=== PATIENT | female | born 1950 | race Caucasian/White ===

== ENCOUNTER 2024-01-14 18:40 | Emergency (ER) | payer MEDICARE, SELFPAY ==
[2024-01-14 18:42] VITALS: BP 167/88
[2024-01-14 19:11] VITALS: BMI 38.3
--- NOTE | 2024-01-14 19:39 | ED.GENMED ---
History of Present Illness
General
Chief Complaint: Back Pain
Source: patient
Exam Limitations: none
Time Seen by Provider: 01/14/24 19:29
Nursing documentation reviewed up to this point in time: agreed with
Travel History
Have you had any contact with someone who has COVID-19?: No
Do you have any symptoms of coronavirus? Fever > 100 degrees, chills, cough, shortness of breath, sore throat, loss of taste or smell, muscle aches, or headache?: No
History of Present Illness
History of Present Illness:
73-year-old female presents emergency department complaining of bilateral low back pain since last night, getting worse. She took a oxycodone/acetaminophen, which did help a little bit. She is on prednisone chronically. She denies any chest pain
or shortness of breath. She is also on 2 L oxygen chronically for COPD.
Past History
Past History
ED Past Medical History: CHF, COPD and Other (Spinal stenosis, morbid obesity, Bilateral kidney stones, Ulcers)
ED Past Surgical History: Cholecystectomy, Orthopedic (Left shoulder reconstruction. ) and Other (Fasciotomy for fasciitis with wound VAC)
Social History
Tobacco: Smoker
Alcohol: None
Drug: None
Personal:
Living: alone
Employment: Retired
Family History
Family History: Other (Noncontributory)
Review of Systems
Review of Systems
Allergies reviewed?: Yes
All Other Systems: Not applicable
Constitutional: Reports no symptoms
EENT: Reports no symptoms
Respiratory: Reports no symptoms
Cardiac: Reports no symptoms
ABD/GI: Reports no symptoms
: Reports no symptoms
Musculoskeletal: Reports back pain
Skin: Reports no symptoms
Neurological: Reports no symptoms
Endocrine: Reports no symptoms
Hematologic/Lymphatic: Reports no symptoms
Psychiatric: Reports no symptoms
Phy Exam
Physical Exam
Physical Exam:
Physical Exam
General: no apparent distress, not acutely ill
Neck: supple. no meningeal signs. normal posterior pharynx
Heart: s1/s2 regular rate and rhythm, no murmur. equal radial
pulses.
HEENT: Pupils equal round reactive to light, EOMI
Lungs: no acute respiratory distress. clear bilaterally
Abdomen: normal bowel sounds. not tender. no CVAT
back: low back ttp at L2
Neuro: alert and oriented. no focal neurological deficits cranial nerves II through XII intact
Skin: no rash
Psychiatric: well kept. interactive and cooperative
Extremities: no edema. no calf tenderness. negative homans. good distal pulses
Course
Orders/Labs/Results
Orders:
Orders
01/14/24 19:36
IV Insert/Care/Rem.- Treatment PRN
HYDROmorphone [Dilaudid] 1 mg IV NOW STA
Ondansetron Injectable [Zofran] 4 mg IV NOW STA
Pulse Ox/cont/shift [RESP] Stat
Quantity: 1
01/14/24 19:37
CT Abd/pel Without Iv Or Oral Urgent
Comment:
Reason For Exam: right flank/back pain worsening since yesterday
01/14/24 19:59
Complete Blood Count/With Diff Urgent
Comprehensive Metabolic Panel Urgent
Lipase Urgent
01/14/24 20:02
Ipratropium/Albuterol Sulfate [Duoneb] 3 ml INH R NOW ONE
01/14/24 23:18
Tramadol HCl [Ultram] 50 mg PO NOW STA
Abnormal Lab Results
01/14/24
19:59
WBC 15.2 H 10^3/uL
(4.8-10.8)
MCH 31.6 H pg
(27.0-31.0)
Abs Immat Gran (auto) 0.4 H 10^3/uL
(0-0.05)
Absolute Neuts (auto) 10.8 H 10^3/uL
(1.4-6.5)
Absolute Monos (auto) 1.3 H 10^3/uL
(0.1-0.6)
Immature Gran % 2.6 H %
(0-0.5)
Lymphocytes % 14.8 L %
(20.5-51.1)
Sodium 134 L mmol/L
(135-145)
BUN 21 H mg/dl
(7-17)
Creatinine 1.5 H mg/dL
(0.6-1.0)
Glucose 123 H mg/dl
(70-99)
01/14/24 19:59
01/14/24 19:59
Vital Signs
Initial and Last Documented VS:
Initial Vital Signs
Temp Pulse Resp BP Pulse Ox
97.8 F 103 18 167/88 90
01/14/24 18:42 01/14/24 18:42 01/14/24 18:42 01/14/24 18:42 01/14/24 18:42
Last Documented Vital Signs
Temp Pulse Resp BP Pulse Ox
97.8 F 90 18 119/54 90
01/14/24 18:42 01/14/24 22:00 01/14/24 18:42 01/14/24 23:26 01/14/24 23:26
MDM/Problems Addressed
Differential Diagnosis Includes:
UTI, kidney stone
MDM/Problems Addressed:
73-year-old female with low back pain, chronic L2 compression fracture.
Chronic conditions affecting care: COPD and Kidney disease
Acute Exacerbation and/or Progression of Chronic Illness: COPD and Kidney disease
*Radiology
Radiology exam reviewed: radiology read reviewed (CT abdomen pelvis no acute findings, chronic L2 compression fracture)
*Pulse Oximetry
Patient hypoxic: no
*EKG
Interpreted by ED Provider?: NA
*Hob Machine Operator Interpretation
Rate: Hob Machine Operator- N/A
*Critical Care Note
Total Time (30-74mins, 75-104mins- exclusive of procedures): Not Applicable
Patient Management
Social determinants of health affecting care: Living situation and Strong social support
Escalation/DeEscalation of care consider admission/obs:
Admit not indicated
ED Attending Note
-
Portions of this chart may have been created with voice recognition software.� Occasional wrong word or��sound alike� substitutions may have occurred due to the inherent limitations of voice recognition software.
Discharge Plan
Departure
Patient Disposition: Home (Routine Discharge)
Date of Disposition: 01/14/24
Time of Disposition: 23:11
Patient with high blood pressure during this ER visit?: No
Condition: Good
Discharge Problem:
Low back pain, COPD (chronic obstructive pulmonary disease), Chronic kidney disease, stage 3
Instructions: Chronic obstructive pulmonary disease (COPD), Low Back Pain (DC), BLOOD PRESSURE
Prescriptions:
New
tramadol 50 mg tablet
50 mg PO TID PRN (Reason: Pain) Qty: 20 0RF
No Action
Claritin-D 12 Hour 5-120 mg Tablet Extended Release 12 Hr
1 tab PO DAILY
albuterol sulfate 90 mcg/actuation HFA aerosol inhaler
1 puff INHALATION R Q4HPRN PRN (Reason: sob/wheezing)
alprazolam 0.5 mg tablet
0.5 mg PO DAILY PRN (Reason: panic attack)
Patient Comments:
10/28/2023, could not find this medication on PDMP.
sertraline 25 mg tablet
25 mg PO DAILY
bupropion HCl 300 mg tablet extended release 24 hr
300 mg PO DAILY
furosemide 40 mg Tablet
40 mg PO DAILY Qty: 30 0RF
acetaminophen [Tylenol] 325 mg Tablet
650 mg PO Q6H PRN (Reason: mild pain)
nicotine 14 mg/24 hr Patch 24 Hour
1 patch TRANSDERMAL DAILY
Patient Comments:
10/28/2023, patient currently wearing a patch on her right shoulder.
ipratropium-albuterol 0.5 mg-3 mg(2.5 mg base)/3 mL Solution For Nebulization
3 ml INHALATION R BID
Patient Comments:
10/28/2023, patient states that they alternate this medication with their albuterol sulfate 0.083% solution for nebulization BID.
albuterol sulfate 2.5 mg /3 mL (0.083 %) Solution For Nebulization
2.5 mg INHALATION R BID
Patient Comments:
10/28/2023, patient states that they alternate this medication with their Ipratropium Albuterol 0.5mg/3mg BID.
Anoro Ellipta 62.5-25 mcg/actuation Blister With Device
1 inh INHALATION R BID
guaifenesin [Mucus Relief ER] 600 MG tablet extended release 12hr
600 mg PO BID
lidocaine 4 % Adhesive Patch,Medicated
1 patch topical DAILY Qty: 30 0RF
prednisone 10 mg Tablet
See Rx Instructions .ROUTE .COMPLEX Qty: 50 0RF
Rx Instructions:
Take By Mouth:
40 mg daily x5 days, 30 mg daily x5 days,
20 mg daily x5 days, 10 mg daily x5 days,
10 mg daily x3 days
Referrals:
Ant Diaz DO [Family Provider] - Call in 1-3 days for appt
Interventions
Interventions:
*Risk Screen - Suicide Last Done: 01/14/24 19:11
*General Assessment Last Done: 01/14/24 19:11
*Neglect/Abuse Screening Last Done: 01/14/24 19:11
ED- Fall Risk Assessment Last Done: 01/14/24 23:30
*ED COVID-19 Vaccine History Last Done: 01/14/24 19:11
*Nursing Disposition Last Done: 01/14/24 23:30
ED-Musculoskeletal Assessment Last Done: 01/14/24 19:15
Discharge Date and Time
Discharge Date/Time: 01/14/24 23:47
[2024-01-14] MEDS: DILAUDID 1 MG IV (19:54)
[2024-01-14] MEDS: ZOFRAN 4 MG IV (19:54)
[2024-01-14] MEDS: DUONEB 3 ML INH (20:05)
[2024-01-14 20:07] LABS: % Basophils 0.6 % (0-2); % Eosinophils 2.8 % (0-6); % Immature Granulocytes 2.6 % (0-0.5); % Lymphocytes 14.8 % (20.5-51.1); % Monocytes 8.2 % (1.7-9.3); Absolute Basophils 0.1 10^3/uL (0-0.2); Absolute Eosinophils 0.4 10^3/uL (0-0.7); Absolute Immature Granulocytes 0.4 10^3/uL (0-0.05); Absolute Lymphocytes 2.2 10^3/uL (1.2-3.4); Absolute Monocytes 1.3 10^3/uL (0.1-0.6); Absolute Neutrophils 10.8 10^3/uL (1.4-6.5); Hematocrit 40.7 % (37.0-47.0); Hemoglobin 13.6 g/dL (12.0-16.0); Mean Corp Hgb Conc. 33.4 g/dL (33.0-37.0); Mean Corpuscular Hgb 31.6 pg (27.0-31.0); Mean Corpuscular Volume 94.4 fL (81.0-99.0); Mean Platelet Volume 9.2 fL (7.4-10.4); Nucleated Red Blood Cells % 0 %; Platelet Count 337 10^3/uL (130-400); Red Blood Cell Count 4.31 10^6/uL (4.20-5.40); Red Cell Dist. Width 12.5 % (11.5-14.5); White Blood Cell Count 15.2 10^3/uL (4.8-10.8)
[2024-01-14 20:21] LABS: ALT (SGPT) 18 U/L (0-35); AST (SGOT) 23 U/L (14-36); Alkaline Phosphatase 105 U/L (38-126); Blood Urea Nitrogen 21 mg/dl (7-17); Calcium 9.2 mg/dl (8.4-10.2); Carbon Dioxide 29 mmol/L (22-30); Chloride 100 mmol/L (98-107); Estimated Creatinine Clearance 44 ml/min; Glucose 123 mg/dl (70-99); Lipase 83 U/L (23-300); Potassium 4.1 mmol/L (3.5-5.1); Sodium 134 mmol/L (135-145); Total Bilirubin 0.6 mg/dl (0.2-1.3); Total Protein 6.9 g/dl (6.3-8.2); eGFR 36.57
[2024-01-14 22:00] VITALS: BP 115/52
[2024-01-14] MEDS: ULTRAM 50 MG PO (23:22)
[2024-01-14 23:26] VITALS: BP 119/54
== END 2024-01-14 23:47 | disposition home or self-care (01) ==
LOC: EMR 18:40
PROVIDERS: EMERGENCY PHYSICIAN Emergency Medicine; FAMILY PHYSICIAN Family Medicine
DX: M54.50 Low back pain, unspecified (principal); J44.9 Chronic obstructive pulmonary disease, unspecified; N18.30 Chronic kidney disease, stage 3 unspecified; I50.9 Heart failure, unspecified; M48.00 Spinal stenosis, site unspecified; E66.01 Morbid (severe) obesity due to excess calories; F17.200 Nicotine dependence, unspecified, uncomplicated; Z79.52 Long term (current) use of systemic steroids; Z87.442 Personal history of urinary calculi; Z90.49 Acquired absence of other specified parts of digestive tract
CPT/HCPCS: 99284; 94640; 96374; 96375; 74176; 80053; 83690; 85025

== ENCOUNTER 2024-01-18 22:04 | Inpatient (IN) | payer MEDICARE, SELFPAY ==
[2024-01-18 15:13] VITALS: BP 167/90
[2024-01-18 15:41] LABS: % Basophils 0.1 % (0-2); % Eosinophils 0.1 % (0-6); % Immature Granulocytes 0.9 % (0-0.5); % Monocytes 3.9 % (1.7-9.3); Absolute Immature Granulocytes 0.1 10^3/uL (0-0.05); Absolute Lymphocytes 1.1 10^3/uL (1.2-3.4); Absolute Monocytes 0.6 10^3/uL (0.1-0.6); Absolute Neutrophils 13.2 10^3/uL (1.4-6.5); Hematocrit 39.6 % (37.0-47.0); Hemoglobin 13.4 g/dL (12.0-16.0); Mean Corp Hgb Conc. 33.8 g/dL (33.0-37.0); Mean Corpuscular Hgb 31.7 pg (27.0-31.0); Mean Corpuscular Volume 93.6 fL (81.0-99.0); Mean Platelet Volume 9.6 fL (7.4-10.4); Nucleated Red Blood Cells % 0 %; Platelet Count 346 10^3/uL (130-400); Red Blood Cell Count 4.23 10^6/uL (4.20-5.40); Red Cell Dist. Width 12.4 % (11.5-14.5)
[2024-01-18 15:43] LABS: Urine Albumin Negative (Neg - Trace); Urine Bilirubin 1+ (Negative); Urine Character Clear (Clear); Urine Color Yellow; Urine Glucose Negative (Negative); Urine Ketone Negative (Negative); Urine Leukocyte Trace (Negative); Urine Nitrite Negative (Negative); Urine Occult Blood Negative (Negative); Urine Specific Gravity 1.025 (<1.030); Urine Urobilinogen Negative (Neg - 1+)
[2024-01-18 15:53] LABS: ALT (SGPT) 20 U/L (0-35); AST (SGOT) 26 U/L (14-36); Albumin 3.9 g/dl (3.5-5.0); Alkaline Phosphatase 97 U/L (38-126); Blood Urea Nitrogen 25 mg/dl (7-17); Calcium 9.4 mg/dl (8.4-10.2); Carbon Dioxide 27 mmol/L (22-30); Chloride 102 mmol/L (98-107); Glucose 134 mg/dl (70-99); Lipase 48 U/L (23-300); Potassium 4.8 mmol/L (3.5-5.1); Sodium 135 mmol/L (135-145); Total Bilirubin 0.6 mg/dl (0.2-1.3); Total Protein 6.8 g/dl (6.3-8.2); Urine Squamous Cell >30 /LPF (Few); eGFR 36.57
[2024-01-18 15:54] LABS: Urine Calcium Oxalate Crystals Present
[2024-01-18 15:55] LABS: Urine Bacteria Few (Negative); Urine Red Blood Cell 0-2 /HPF (0-2)
--- NOTE | 2024-01-18 19:29 | ED.GENMED ---
History of Present Illness
General
Chief Complaint: Breathing Problem
Source: patient, records and family (Daughter)
Exam Limitations: none
Time Seen by Provider: 01/18/24 18:48
Nursing documentation reviewed up to this point in time: agreed with
Travel History
Have you had any contact with someone who has COVID-19?: No
Do you have any symptoms of coronavirus? Fever > 100 degrees, chills, cough, shortness of breath, sore throat, loss of taste or smell, muscle aches, or headache?: No
History of Present Illness
History of Present Illness:
73-year-old female with a past medical history of COPD with chronic respiratory failure on 2 L of oxygen, CHF, JUAN ANTONIO, obesity, anxiety/depression who presents to the emergency department accompanied by her daughter for evaluation of breathing
difficulties also complaining of persistent low back pain. Patient reports that she strained her low back last week and has had pain in the right side of the back radiating across the low back since then. She was seen in the emergency room 4 days
ago and had CT scan which showed no acute pathology was discharged with tramadol to take for pain as needed. She says the pain is generally improving but still quite severe. She is back in the emergency room today with persistent pain but her main
presenting complaint for this visit is shortness of breath. It sounds like over the past week she has had increasing shortness of breath particular with exertion but now also at rest. She says that she thinks she is retaining some fluid
particularly around her lower abdomen. She says that she has had significant coughing fits. She says that normally she wears 2 L of oxygen but has recently been increasing to 3 L of oxygen. She was concerned that her breathing seems to be getting
worse and came back to the emergency room for assessment. Patient did have visiting nurse, few days ago and draw repeat blood work after ED visit and apparently was found to have a leukocytosis to 15�presume her suggested that potentially she could
have an infection of some sort; patient does note that she has been on chronic prednisone, chart review shows similar elevations in the past.
Past History
Past History
ED Past Medical History: CHF, COPD and Other (Spinal stenosis, morbid obesity, Bilateral kidney stones, Ulcers)
ED Past Surgical History: Cholecystectomy, Orthopedic (Left shoulder reconstruction. ) and Other (Fasciotomy for fasciitis with wound VAC)
Social History
Tobacco: Smoker
Alcohol: None
Drug: None
Personal:
Living: alone
Employment: Retired
Family History
Family History: Other (Noncontributory)
Review of Systems
Review of Systems
All Other Systems: ROS reviewed and negative except as documented in HPI and ROS
Constitutional: Denies fever or chills
EENT: Denies sore throat
Respiratory: Reports cough and trouble breathing
Cardiac: Denies chest pain or palpitations
ABD/GI: Denies abdominal pain, nausea, vomiting or diarrhea
: Reports flank pain; Denies dysuria or frequency
Musculoskeletal: Reports back pain; Denies neck pain
Neurological: Denies headache, weakness or numbness
Phy Exam
Physical Exam
Physical Exam:
General: Awake, alert, oriented x3; no acute distress
Head: Normocephalic, atraumatic
Eyes: Conjunctiva normal, sclera anicteric
Throat: Airway intact, handling secretions
Neck: Trachea midline, supple without meningismus, no JVD noted
Lungs: Frequent coughing, pulse ox 92 to 94% on 3 L nasal cannula; she has normal work of breathing, mild tachypnea; she has marked bilateral wheezing with prolonged expiration
Heart: Regular rate and rhythm, no murmurs, gallops, or rubs
Abd: Soft, non distended, nontender to deep palpation
Back: No CVA tenderness, consistently reproducible tenderness in the right lumbar paraspinal region
Neuro: Cranial nerves grossly intact, speech fluid
Skin: no rash
Extremities: No edema in extremities, equal pulses in all extremities
Scores
Heart Failure Risk
Heart Failure Risk Score: Not Applicable
Heart Score for Chest Pain Patients
STEMI patient?: Not applicable
Withdrawal Assessment of Alcohol
Withdrawal Assessment Completed?: Not applicable
Course
Orders/Labs/Results
Orders:
Orders
01/18/24 15:26
CBC/With Diff [Complete Blood Count/With Diff] Urgent
CMP [Comprehensive Metabolic Panel] Urgent
Lipase Urgent
Urinalysis Reflex To Culture Urgent
Date Specimen was Collected: 01/18/24
Time Specimen was Collected: 15:18
Urine Microscopic Reflex Cult Urgent
01/18/24 19:28
NT-proBNP Urgent
HYDROmorphone [Dilaudid] 0.5 mg IV NOW STA
Ipratropium/Albuterol Sulfate [Duoneb] 3 ml INH R NOW STA
CR Chest - 2 Views Urgent
Comment:
Reason For Exam: sob, cough
01/18/24 19:39
Electrocardiogram (*1) Urgent
Reason for Study: Shortness of Breath
EKG- Treatment ONCE
01/18/24 20:27
Case Management Consult ONCE
Case Management Consult: Discharge Planning
Pt Eval And Treat Urgent
Activity Level: Ambulate
01/18/24 20:35
Ipratropium/Albuterol Sulfate [Duoneb] 3 ml INH R NOW STA
01/18/24 20:37
Furosemide [Lasix] 40 mg IV NOW STA
Abnormal Lab Results
01/18/24
15:26
WBC 15.0 H 10^3/uL
(4.8-10.8)
MCH 31.7 H pg
(27.0-31.0)
Abs Immat Gran (auto) 0.1 H 10^3/uL
(0-0.05)
Absolute Neuts (auto) 13.2 H 10^3/uL
(1.4-6.5)
Absolute Lymphs (auto) 1.1 L 10^3/uL
(1.2-3.4)
Immature Gran % 0.9 H %
(0-0.5)
Neutrophils % 88.0 H %
(42.2-75.2)
Lymphocytes % 7.0 L %
(20.5-51.1)
BUN 25 H mg/dl
(7-17)
Creatinine 1.5 H mg/dL
(0.6-1.0)
Glucose 134 H mg/dl
(70-99)
Urine Bilirubin 1+ A
(Negative)
Leukocyte Esterase Rfl Trace A
(Negative)
Urine Bacteria (Reflex) Few A
(Negative)
01/18/24 15:26
01/18/24 15:26
Vital Signs
Initial and Last Documented VS:
Initial Vital Signs
Temp Pulse Resp BP Pulse Ox
36.7 C 97 24 167/90 94
01/18/24 15:13 01/18/24 15:13 01/18/24 15:13 01/18/24 15:13 01/18/24 15:13
Last Documented Vital Signs
Temp Pulse Resp BP Pulse Ox
36.7 C 97 24 167/90 94
01/18/24 15:13 01/18/24 15:13 01/18/24 15:13 01/18/24 15:13 01/18/24 15:13
MDM/Problems Addressed
Differential Diagnosis Includes:
Shortness of breath: COPD exacerbation, CHF exacerbation, pneumonia
Back pain: Muscular back pain, kidney stone, UTI/pyelonephritis
MDM/Problems Addressed:
73-year-old female presents for evaluation of shortness of breath also having persistent low back pain. Hypertensive, tachypneic with pulse ox 90 to 94% on 3 L of oxygen (typically on 2 L at home). Physical exam as above.
Regarding low back pain: Seems consistently reproducible to the touch and is in my judgment convincingly muscular pain. She already had CT scan a few days ago which showed no kidney stone or concerning intra-abdominal pathology. Her urinalysis
today sent in triage shows no signs of infection. Will treat symptomatically for now�it seems to be limiting her movement markedly she likely will benefit from PT evaluation and rehab as she has poor functional status at baseline, now basically
cannot move due to this back injury.
Regarding shortness of breath: She has baseline COPD but has marked bilateral wheezing and prolonged expiration�most consistent with COPD exacerbation although also would consider CHF exacerbation. Pneumonia considered less likely although she did
have leukocytosis on outpatient labs a few days ago suspect this is more likely due to prednisone use. Nevertheless we will place an IV check labs including a CBC and CMP will check a BNP. Will check an EKG and a chest x-ray. Will treat with a
DuoNeb. She already took her prednisone today 50 mg. Will monitor closely reassess after the above.
Labs reviewed: CBC shows leukocytosis to 15 essentially unchanged. CMP shows creatinine of 1.5 which is baseline. Chest x-ray reviewed by me shows some pulmonary vascular congestion, mild pulmonary edema. Will dose with IV Lasix. She still
significant wheezing as well will repeat DuoNeb likely some component of COPD contributing. Will admit for continued management of her respiratory issues and will likely ultimately need rehab for back injury as well. Discussed with hospitalist for
admission.
Chronic conditions affecting care:
COPD, CHF, obesity
Acute Exacerbation and/or Progression of Chronic Illness:
Acute COPD exacerbation managed with DuoNeb
Acute CHF exacerbation managed with Lasix
Acutely hypertensive�no emergent indication for antihypertensive we will continue to monitor
Acute Exacerbation and/or Progression of Chronic Illness: HTN and COPD
*Radiology
Radiology exam reviewed: preliminary read by ED provider and radiology read reviewed
*Pulse Oximetry
Patient hypoxic: yes
*EKG
Interpreted by ED Provider?: Yes
Heart Rate: 79
Rate: normal
Rhythm: sinus and PVC's
[place]: normal axis
Interval: normal interval
QRS Pattern: normal QRS
Ischemia: no ischemia
*Critical Care Note
Total Time (30-74mins, 75-104mins- exclusive of procedures): Not Applicable
Data Reviewed
Review of Other/Old Records Reveals: Labs, Records and Radiology Studies
Source: patient and family (Daughter)
Patient Management
Discussion with other providers: Hospitalist (Discussed with hospitalist)
Escalation/DeEscalation of care consider admission/obs:
Admission indicated
ED Attending Note
-
Portions of this chart may have been created with voice recognition software.� Occasional wrong word or��sound alike� substitutions may have occurred due to the inherent limitations of voice recognition software.
Discharge Plan
Departure
Patient Disposition: Admit
Date of Disposition: 01/18/24
Time of Disposition: 20:39
Admit to doctor: Crescencio
Presentation/result/management discussed w/ accepting MD/DO: Hospitalist
Discharge Problem:
CHF exacerbation, COPD exacerbation, Low back pain
Prescriptions:
No Action
Claritin-D 12 Hour 5-120 mg Tablet Extended Release 12 Hr
1 tab PO DAILY
albuterol sulfate 90 mcg/actuation HFA aerosol inhaler
1 puff INHALATION R Q4HPRN PRN (Reason: sob/wheezing)
alprazolam 0.5 mg tablet
0.5 mg PO DAILY PRN (Reason: panic attack)
Patient Comments:
10/28/2023, could not find this medication on PDMP.
sertraline 25 mg tablet
25 mg PO DAILY
bupropion HCl 300 mg tablet extended release 24 hr
300 mg PO DAILY
furosemide 40 mg Tablet
40 mg PO DAILY Qty: 30 0RF
acetaminophen [Tylenol] 325 mg Tablet
650 mg PO Q6H PRN (Reason: mild pain)
nicotine 14 mg/24 hr Patch 24 Hour
1 patch TRANSDERMAL DAILY
Patient Comments:
10/28/2023, patient currently wearing a patch on her right shoulder.
ipratropium-albuterol 0.5 mg-3 mg(2.5 mg base)/3 mL Solution For Nebulization
3 ml INHALATION R BID
Patient Comments:
10/28/2023, patient states that they alternate this medication with their albuterol sulfate 0.083% solution for nebulization BID.
albuterol sulfate 2.5 mg /3 mL (0.083 %) Solution For Nebulization
2.5 mg INHALATION R BID
Patient Comments:
10/28/2023, patient states that they alternate this medication with their Ipratropium Albuterol 0.5mg/3mg BID.
Anoro Ellipta 62.5-25 mcg/actuation Blister With Device
1 inh INHALATION R BID
guaifenesin [Mucus Relief ER] 600 MG tablet extended release 12hr
600 mg PO BID
lidocaine 4 % Adhesive Patch,Medicated
1 patch topical DAILY Qty: 30 0RF
prednisone 10 mg Tablet
See Rx Instructions .ROUTE .COMPLEX Qty: 50 0RF
Rx Instructions:
Take By Mouth:
40 mg daily x5 days, 30 mg daily x5 days,
20 mg daily x5 days, 10 mg daily x5 days,
10 mg daily x3 days
tramadol 50 mg tablet
50 mg PO TID PRN (Reason: Pain) Qty: 20 0RF
Interventions
Interventions:
*Risk Screen - Suicide Last Done: 01/18/24 15:13
*General Assessment Last Done: 01/18/24 15:13
*Neglect/Abuse Screening Last Done: 01/18/24 15:13
*ED COVID-19 Vaccine History Last Done: 01/18/24 15:18
NP-Dlblam-Ezemqpcszw Assessment Last Done: 01/18/24 18:43
ED- Cardiac Assessment Last Done: 01/18/24 20:10
ED-Female Genitourinary Assessment Last Done: 01/18/24 18:43
ED- Pulmonary Assessment Last Done: 01/18/24 20:10
[2024-01-18] MEDS: DUONEB 3 ML INH ×2 (19:46→21:09)
[2024-01-18] MEDS: DILAUDID 0.5 MG IV (20:06)
[2024-01-18 21:00] LABS: NT-proBNP 582 pg/ml
[2024-01-18] MEDS: LASIX 40 MG IV (21:10)
--- NOTE | 2024-01-18 21:14 | HPS.HSE ---
Family Physician
-
Family Physician: Ant Diaz
Chief Complaint
-
shortness of breath
History of Present Illness
73-year-old female past medical history of chronic hypoxic respiratory failure secondary to COPD on 2 L baseline, obstructive sleep apnea, chronic HFpEF, active smoker, CKD 3A, anxiety/depression, obesity, left-sided sciatica, prior lumbar fracture,
hyponatremia, kidney stones, prior presenting with breathing difficulty and persistent lower back pain.
Patient states she originally pulled a muscle in her right groin in May from coughing. This eventually recovered. Last week she suddenly developed pain on the right lower side of her back radiating to the right butt across the left side as well
as radiating around to the front of the abdomen described as spasm. Pain was very severe and constant although exacerbated by movement. This was also accompanied by increased difficulty ambulating. She thought that the pain was so bad that it may
have been a kidney stone. Denies any urinary symptoms. She was seen in the emergency room [address] and had CT scan of the abdomen pelvis which was negative and discharged with tramadol. Pain is a little bit improved but still severe. She
denies any trauma or injury. She states she has a distant history of lumbar fracture. She did have an episode of urinary incontinence yesterday for the first time.
She feels her abdomen is a bit distended and she has gained 5 pounds despite eating less due to the pain. Has nausea but denies vomiting. Denies any diarrhea or constipation.
Over the past week patient is also developed significant shortness of breath with exertion now at rest. Not much productive cough. Denies any fevers or chills. Denies any chest pain. She increased her oxygen from 2 L to 3 L today.
She only smokes 4 cigarettes a day now. Denies any alcohol use.
Medical History
Past Medical History
Past Medical History: Reports Other (chronic hypoxic respiratory failure secondary to COPD on 2 L baseline, obstructive sleep apnea, chronic HFpEF, active smoker, CKD 3A, anxiety/depression, obesity, left-sided sciatica, prior lumbar fracture,
hyponatremia, kidney stones,)
Past Surgical History: Reports Other (Cholecystectomy, Orthopedic (Left shoulder reconstruction. ) and Other (Fasciotomy for fasciitis with wound VAC))
Social History
Tobacco: Smoker
Alcohol: None
Drug: None
Family History
Family History: Not pertinent
Allergies / Home Medications
Allergies reflects when Allergies were last updated in [facility].
Home Medications with original date entered in [facility]
Allergy/Medication List:
Allergies
Allergy/AdvReac Type Severity Reaction Status Date / Time
ampicillin Allergy Hives Verified 01/18/24 15:18
coconut Allergy Hives Verified 01/18/24 15:18
mustard Allergy Hives Verified 01/18/24 15:18
Home Medications
albuterol sulfate 90 mcg/actuation aerosol inhaler 2 puff inhalation R Q4HPRN PRN sob/wheezing 12/29/22
loratadine 5 mg-pseudoephedrine ER 120 mg tablet,extended release,12hr (Claritin-D 12 Hour) 1 tab PO DAILY Allergies 12/29/22
bupropion HCl 300 mg 24 hr tablet, extended release 300 mg PO DAILY Depression 07/19/23
sertraline 25 mg tablet 100 mg PO DAILY Depression 07/19/23
furosemide 40 mg tablet 40 mg PO DAILY #30 tabs 08/20/23
acetaminophen 325 mg tablet (Tylenol) 650 mg PO Q6H PRN mild pain 10/28/23
albuterol sulfate 2.5 mg/3 mL (0.083 %) solution for nebulization 2.5 mg inhalation R QID Lung/Breathing Issues 10/28/23
guaifenesin 600 mg tablet, extended release 12 hr (Mucus Relief ER) 600 mg PO BID Congestion 10/28/23
ipratropium 0.5 mg-albuterol 3 mg (2.5 mg base)/3 mL nebulization soln 3 ml inhalation R QID Lung/Breathing Issues 10/28/23
budesonide 160 mcg-glycopyr 9 mcg-formot 4.8 mcg/actuation HFA inhaler (Breztri Aerosphere) 2 inh inhalation R BID 01/18/24
prednisone 20 mg tablet 20 mg PO DAILY 01/18/24
Review of Systems
-
History Source: Patient
A 12 point ROS was completed and negative except as noted: Yes
Constitutional: Reports No Symptoms
EENT: Reports No Symptoms
Respiratory: Reports See HPI
Cardiac: Reports See HPI
Abdomen/GI: Reports No Symptoms
: Reports No Symptoms
Musculoskeletal: Reports No Symptoms
Skin: Reports No Symptoms
Neurological: Reports No Symptoms
Endocrine: Reports No Symptoms
Hematologic/Lymphatic: Reports No Symptoms
Psych: Reports No Symptoms
Physical Exam
Vital Signs
Vital Signs
Temp Pulse Resp BP Pulse Ox
98.0 F 97 24 167/90 94
01/18/24 15:13 01/18/24 15:13 01/18/24 15:13 01/18/24 15:13 01/18/24 15:13
Physical Exam
General: Well Developed, Well Nourished and No Apparent Distress
HEENT: NormoCephalic, Moist mucous membranes and Atraumatic
Respiratory: Wheezes
Cardiac: S1/S2 and Regular Rhythm; No Murmur or Rub
GI: Soft, Non Tender, Non Distended and Normal Bowel Sounds; No Organomegaly
Rectal: Deferred by Provider
Musculoskeletal: No Clubbing, No Cyanosis and No Edema
Skin: No Rash
Neuro: Nonfocal/grossly intact
Laboratory Results
-
01/18/24 15:26
01/18/24 15:26
Laboratory Results
Total Bilirubin 0.6 mg/dl (0.2-1.3) 01/18/24 15:26
AST 26 U/L (14-36) 01/18/24 15:26
ALT 20 U/L (0-35) 03/06/24 15:26
Alkaline Phosphatase 97 U/L (38-126) 01/18/24 15:26
Lipase 48 U/L (23-300) 01/18/24 15:26
Data Reviewed
-
Lab Data: Labs Reviewed by me
Old Records: Reviewed
Impression/Plan
-
IMPRESSION:
PLAN:
# Acute COPD exacerbation
# Chronic COPD on 2 L baseline
-DuoNebs every 6 hours
-Dexamethasone 4 mg every 8 hours
-Doxycycline
-Continue long-acting inhalers
-Mucinex
-Pulmonary consulted
# Mild component of acute on chronic HFpEF exacerbation
-Chest x-ray cannot exclude mild acute pulmonary edema
-Check I's and O's, daily weight
-40 IV Lasix given, continue daily
-Cardiology consulted
# Severe right lower back pain likely muscle spasm with radiation to the abdomen
-Tylenol, tramadol, lidocaine patch
-Add Flexeril
-As needed oxycodone for severe
-Recent CT abdomen pelvis negative for kidney stone pathology
-Check MRI lumbar spine to evaluate for herniated disc especially given weakness and episode of incontinence yesterday
-Also check urinalysis
History of left-sided sciatic
Distant history of lumbar fracture
Obstructive sleep apnea
-Not on CPAP due to anxiety
History of kidney stones
Active smoker
-Nicotine patch
CKD 3A
-Renal function at baseline
Anxiety/depression
-Continue Xanax
-Continue sertraline, bupropion
Obesity
Full code
DVT prophylaxis�heparin
Cardiac diet
[2024-01-18] MEDS: VIBRAMYCIN 260 MG IV (22:58)
[2024-01-18] MEDS: ROXICODONE 5 MG PO (22:58)
[2024-01-18] MEDS: DECADRON 4 MG IV (22:58)
[2024-01-18 23:00] VITALS: BP 119/60
[2024-01-18 23:15] LABS: Urine Albumin Negative (Neg - Trace); Urine Bilirubin Negative (Negative); Urine Character Clear (Clear); Urine Color Yellow; Urine Glucose Negative (Negative); Urine Ketone Negative (Negative); Urine Leukocyte 2+ (Negative); Urine Nitrite Negative (Negative); Urine Occult Blood Negative (Negative); Urine Specific Gravity 1.015 (<1.030); Urine Urobilinogen Negative (Neg - 1+)
[2024-01-19] VITALS (8 sets, daily range): BP systolic 108–139; BP diastolic 56–114; BMI 37.6; BMI 37.7
[2024-01-19 00:26] LABS: Urine Squamous Cell >30 /LPF (Few)
[2024-01-19 00:28] LABS: Urine Bacteria Moderate (Negative); Urine Urothelial Cell >30 /LPF (FEW); Urine White Cell 40-50 /HPF (0-5)
[2024-01-19] MEDS: DECADRON 4 MG IV ×3 (05:46→21:09)
[2024-01-19 07:02] LABS: % Basophils 0.2 % (0-2); % Eosinophils 0.2 % (0-6); % Immature Granulocytes 1.2 % (0-0.5); % Lymphocytes 6.1 % (20.5-51.1); % Monocytes 2.7 % (1.7-9.3); % Neutrophils 89.6 % (42.2-75.2); Absolute Immature Granulocytes 0.1 10^3/uL (0-0.05); Absolute Lymphocytes 0.7 10^3/uL (1.2-3.4); Absolute Monocytes 0.3 10^3/uL (0.1-0.6); Absolute Neutrophils 10.9 10^3/uL (1.4-6.5); Hematocrit 36.9 % (37.0-47.0); Hemoglobin 12.3 g/dL (12.0-16.0); Mean Corp Hgb Conc. 33.3 g/dL (33.0-37.0); Mean Corpuscular Hgb 31.4 pg (27.0-31.0); Mean Corpuscular Volume 94.1 fL (81.0-99.0); Mean Platelet Volume 9.8 fL (7.4-10.4); Nucleated Red Blood Cells % 0 %; Platelet Count 321 10^3/uL (130-400); Red Blood Cell Count 3.92 10^6/uL (4.20-5.40); Red Cell Dist. Width 12.4 % (11.5-14.5); White Blood Cell Count 12.1 10^3/uL (4.8-10.8)
[2024-01-19 07:21] LABS: ALT (SGPT) 17 U/L (0-35); AST (SGOT) 20 U/L (14-36); Albumin 3.5 g/dl (3.5-5.0); Alkaline Phosphatase 81 U/L (38-126); Blood Urea Nitrogen 31 mg/dl (7-17); Calcium 9.4 mg/dl (8.4-10.2); Carbon Dioxide 30 mmol/L (22-30); Chloride 97 mmol/L (98-107); Glucose 138 mg/dl (70-99); Potassium 4.3 mmol/L (3.5-5.1); Sodium 135 mmol/L (135-145); Total Bilirubin 0.4 mg/dl (0.2-1.3); Total Protein 6.3 g/dl (6.3-8.2); eGFR 31.47
[2024-01-19] MEDS: DUONEB 3 ML INH (07:30)
[2024-01-19] MEDS: SPIRIVA RESPIMAT 2.5 MCG INH (07:31)
[2024-01-19] MEDS: SYMBICORT 160/4.5 MCG INHALER 2 PUFF INH ×2 (07:31→20:15)
--- NOTE | 2024-01-19 09:17 | CON.CAR ---
Addendum entered and electronically signed by Emily Desai MD 01/19/24 10:26:
I saw and examined the patient.
The STONE OPERATOR's note was reviewed and I agree with the note.
Comment: I saw and examined the patient.
The STONE OPERATOR's note was reviewed and I agree with the note.
Comment: 73-year-old female with oxygen dependent COPD, ongoing tobacco use, heart failure with preserved EF and back pain who presented with increased shortness of breath and back pain over the last several days. She has been gaining weight
despite reported compliance with medications. She does think she may have been taking in too much fluid as she was not accounting for fluid and food only her cup. Additionally, she was recently resumed on steroids. On exam she is morbidly obese
but pleasant, JVP is 14 cm of H2O. She has a regular respiratory effort does cough with inspiration and has some rales bilaterally at the bases. Regular rate and rhythm with a normal S1-S2 no murmurs or gallops were appreciated abdomen was obese
but soft, no lower extremity edema. Overall, I think her shortness of breath is multifactorial but certainly there is an element of decompensated heart failure. Agree with increasing her diuresis. Reviewed the heart failure plan. Will check on
pricing of SGLT2 inhibitors given her heart failure with preserved EF. She denies a history of recurrent UTIs. Treatment of her back pain and COPD as per medicine. Renal function is chronically depressed so we will need intensive monitoring
during of her electrolytes and creatinine during IV diuresis. Will follow
Original Note:
Consultation
Consultation Request
Date/Time Consultation Requested: 01/19/24 0758
Date/Time Consultation Performed: 01/19/24 [id number]
Requesting Provider: Dr. Mckeon
Performing Provider: Elvi ROCHA for Dr. Desai
Reason for Consultation: CHF
Medical History
-
Chief Complaint: back pain and shortness of breath
History of Present Illness:
73 y/o female with HFpEF, tobacco use, COPD on 2LNC, anxiety/depression, renal insufficiency who is here for evaluation of continued lower back pain as well as SOB (since last Tuesday). She also reports 5 lb weight gain and abdominal bloating. She is
being diuresed.
Past Medical History
Past Medical History: CHF, COPD and Psychiatric (anxiety, depression)
Social History
Tobacco: Smoker (2 cigarettes per day (decreased from previous 1/2 PPD))
Family History
Family History: Reviewed & Not Pertinent
Allergies / Home Medications
Allergy/AdvReac Type Severity Reaction Status Date / Time
ampicillin Allergy Hives Verified 01/18/24 15:18
coconut Allergy Hives Verified 01/18/24 15:18
mustard Allergy Hives Verified 01/18/24 15:18
Medication Instructions Recorded Confirmed Type
albuterol sulfate 90 mcg/actuation 2 puff inhalation R Q4HPRN PRN 12/29/22 01/18/24 History
aerosol inhaler sob/wheezing
loratadine 5 mg-pseudoephedrine ER 1 tab PO DAILY Allergies 12/29/22 01/18/24 History
120 mg tablet,extended
release,12hr (Claritin-D 12 Hour)
bupropion HCl 300 mg 24 hr tablet, 300 mg PO DAILY Depression 07/19/23 01/18/24 History
extended release
sertraline 25 mg tablet 100 mg PO DAILY Depression 07/19/23 01/18/24 History
furosemide 40 mg tablet 40 mg PO DAILY #30 tabs 08/20/23 01/18/24 Rx
acetaminophen 325 mg tablet 650 mg PO Q6H PRN mild pain 10/28/23 01/18/24 History
(Tylenol)
albuterol sulfate 2.5 mg/3 mL 2.5 mg inhalation R QID 10/28/23 01/18/24 History
(0.083 %) solution for nebulization Lung/Breathing Issues
guaifenesin 600 mg tablet, 600 mg PO BID Congestion 10/28/23 01/18/24 History
extended release 12 hr (Mucus
Relief ER)
ipratropium 0.5 mg-albuterol 3 mg 3 ml inhalation R QID 10/28/23 01/18/24 History
(2.5 mg base)/3 mL nebulization Lung/Breathing Issues
soln
budesonide 160 mcg-glycopyr 9 2 inh inhalation R BID 01/18/24 01/18/24 History
mcg-formot 4.8 mcg/actuation HFA
inhaler (Breztri Aerosphere)
prednisone 20 mg tablet 20 mg PO DAILY 01/18/24 01/18/24 History
Review of Systems
-
History Source: Patient
All other systems: Negative unless noted
Constitutional: Weight Gain
Respiratory: Trouble Breathing
Abdomen/GI: Other (abdominal bloating)
Physical Exam
Vital Signs
Temp Pulse Resp BP Pulse Ox
98.2 F 59 21 128/114 93
01/19/24 07:00 01/19/24 07:37 01/19/24 07:37 01/19/24 05:49 01/19/24 07:37
Lab Results
01/19/24 06:05
01/19/24 06:05
Otx-C-Zwisojojksx Pept 582 pg/ml 01/18/24 20:34
Physical Exam
General: Well Developed, Well Nourished and No Apparent Distress
HEENT: Normocephalic and Anicteric
Respiratory: Wheezes and Other (on O2 by NC)
Cardiac: Regular Rhythm
Skin: Warm and Dry
Neuro: AO x 3
Psych: Calm
Impression / Plan
-
Back pain, lower:
-patient has sciatica, gets PT
-management per primary team
HFpEF, [id number]:
-agree with IV lasix- will adjust to BID dosing- this medicine requires intensive monitoring
-will coffey SGLT2 inhibitors
COPD exacerbation:
-pulm is consulted
-patient on steroids
-currently wheezing
-I did recommend patient stop smoking altogether
Data Reviewed
-
EKG: Tracing Personally Visualized and interpreted (SR with PVC 69 BPM)
Radiology: Report Reviewed by me (CXR: Pulmonary vascularity at least top normal. Cannot exclude mild acute pulmonary edematous changes/CHF.)
Medical Tests (Nuc Med, Echo etc): Report Reviewed by me (Echo 08/18/23: Normal left ventricular systolic function. Left ventricular ejection fraction is 50-55%. Mild aortic regurgitation.)
Labs: Labs Reviewed by me
[2024-01-19] MEDS: HEPARIN 5000 UNITS SC ×2 (09:35→21:07)
[2024-01-19] MEDS: SUDAFED 12 HOUR (EXTENDED RELEASE) 120 MG PO (09:36)
[2024-01-19] MEDS: MUCINEX 600 MG PO ×2 (09:36→21:07)
[2024-01-19] MEDS: CLARITIN 10 MG PO (09:36)
[2024-01-19] MEDS: LASIX 40 MG IV ×2 (09:36→17:05)
[2024-01-19] MEDS: WELLBUTRIN XL (24 hour extended release) 300 MG PO (09:37)
[2024-01-19] MEDS: LIDOCAINE 4% PATCH 1 PATCH TOPICAL (09:37)
[2024-01-19] MEDS: ZOLOFT 100 MG PO (09:37)
--- NOTE | 2024-01-19 09:53 | CON.PUL ---
Consultation
Consultation Request
Date/Time Consultation Requested: 01/19/2024-9 AM
Date/Time Consultation Performed: 01/19/2024-9:30 AM
Requesting Provider: Hospitalist
Performing Provider: Dr. Diaz
Reason for Consultation: Shortness of breath
Medical History
-
Chief Complaint: Shortness of breath
History of Present Illness:
73-year-old female patient with a history of underlying COPD on 2 L of oxygen followed by Dr. Roque, obstructive sleep apnea CPAP intolerant who is an active smoker with chronic heart failure preserved EF and renal insufficiency presented with
increasing shortness of breath and persistent lower back pain-pulmonary consulted for COPD exacerbation 01/19/2024. Patient states that she moved to [place] 6 years ago and over the last 6 months has been hospitalized multiple times in [place].
She has increasing shortness of breath, wheezing, and offers no complaints of chest pain, chest congestion, productive cough, pleurisy, abdominal pain, nausea, weakness and has some increased lower extremity swelling. She continues to smoke.
Past Medical History
Past Medical History: None (COPD oxygen dependent 2 L. Active smoker. Obstructive sleep apnea/CPAP intolerant. Chronic heart failure preserved EF. Chronic kidney disease stage III. Anxiety/depression. Obesity. Sciatica. Prior lumbar
fracture. Left lower extremity fasciitis. Hyponatremia. Renal calculi.)
Past Surgical History: None (Cataract. Carpal tunnel release. Cholecystectomy 1975. Shoulder surgery 1992.)
Social History
Tobacco: Smoker ([id number] down to 3 cigarettes daily)
Alcohol: None
Drug: None
Occupational Exposures: No known asbestos exposure
Environmental Exposures: No known tuberculosis exposure
Family History
Family History: Reviewed & Not Pertinent and Other (Father diabetes, mother CVA, CAD)
Allergies / Home Medications
Allergies
Allergy/AdvReac Type Severity Reaction Status Date / Time
ampicillin Allergy Hives Verified 01/18/24 15:18
coconut Allergy Hives Verified 01/18/24 15:18
mustard Allergy Hives Verified 01/18/24 15:18
Home Medications
Medication Instructions Recorded Confirmed Last Taken Type
albuterol sulfate 90 mcg/actuation 2 puff inhalation R Q4HPRN PRN 12/29/22 01/18/24 10/28/23 History
aerosol inhaler sob/wheezing
loratadine 5 mg-pseudoephedrine ER 1 tab PO DAILY Allergies 12/29/22 01/18/24 01/18/24 History
120 mg tablet,extended
release,12hr (Claritin-D 12 Hour)
bupropion HCl 300 mg 24 hr tablet, 300 mg PO DAILY Depression 07/19/23 01/18/24 01/18/24 History
extended release
sertraline 25 mg tablet 100 mg PO DAILY Depression 07/19/23 01/18/24 01/18/24 History
furosemide 40 mg tablet 40 mg PO DAILY #30 tabs 08/20/23 01/18/24 01/18/24 Rx
acetaminophen 325 mg tablet 650 mg PO Q6H PRN mild pain 10/28/23 01/18/24 10/28/23 History
(Tylenol)
albuterol sulfate 2.5 mg/3 mL 2.5 mg inhalation R QID 10/28/23 01/18/24 01/18/24 History
(0.083 %) solution for nebulization Lung/Breathing Issues
guaifenesin 600 mg tablet, 600 mg PO BID Congestion 10/28/23 01/18/24 01/18/24 History
extended release 12 hr (Mucus
Relief ER)
ipratropium 0.5 mg-albuterol 3 mg 3 ml inhalation R QID 10/28/23 01/18/24 01/18/24 History
(2.5 mg base)/3 mL nebulization Lung/Breathing Issues
soln
budesonide 160 mcg-glycopyr 9 2 inh inhalation R BID 01/18/24 01/18/24 01/18/24 History
mcg-formot 4.8 mcg/actuation HFA
inhaler (Breztri Aerosphere)
prednisone 20 mg tablet 20 mg PO DAILY 01/18/24 01/18/24 01/18/24 History
Review of Systems
-
Unable to Obtain full review of systems at this time due to: Other (Per HPI)
Vitals / Labs / Diagnostic Testing
Vital Signs
Temp Pulse Resp BP Pulse Ox
98.2 F 85 20 117/56 95
01/19/24 07:00 01/19/24 09:28 01/19/24 09:28 01/19/24 09:28 01/19/24 08:45
Lab Data
01/19/24 06:05
01/19/24 06:05
Diagnostic Testing:
Physical Exam
-
Exam:
Well-nourished and well-developed in no apparent distress
HEENT-atraumatic, normocephalic
Neck-supple, no JVD, no bruit
Heart-regular rate and rhythm-no murmurs, rubs or gallops
Chest with diminished breath sounds, prolonged expiratory time, expiratory wheezes without crackles
Abdomen-soft, nontender, nondistended, no hepatosplenomegaly
Extremities-no cyanosis, clubbing, lower extremity edema
Integument-intact, no rashes, lesions or ecchymosis
Neurology-alert and oriented, nonfocal motor and sensory exam
Assessment
-
73-year-old female patient with a history of underlying COPD on 2 L of oxygen followed by Dr. Roque, obstructive sleep apnea CPAP intolerant who is an active smoker with chronic heart failure preserved EF and renal insufficiency presented with
increasing shortness of breath and persistent lower back pain-pulmonary consulted for COPD exacerbation 01/19/2024.
Assessment
Shortness of breath secondary to COPD exacerbation
COPD with acute exacerbation
Leukocytosis
[place]
Hyperglycemia
Conditions present prior to admission:
Repetitive hospitalizations for COPD exacerbation-December, April, July, August, September 2023
Syncope admission August 2020-found minimally responsive, septic shock, left lower extremity fasciitis requiring mechanical ventilation, extensive surgical debridement and wound VAC for 10 months
COPD oxygen dependent 2 L.
Active smoker.
Covid illness September 2023
Obstructive sleep apnea/CPAP intolerant.
Chronic heart failure preserved EF.
Chronic kidney disease stage III.
Anxiety/depression.
Obesity.
Sciatica.
Prior lumbar fracture.
Left lower extremity fasciitis.
Hyponatremia.
Renal calculi.
Cataract. Carpal tunnel release. Cholecystectomy 1975. Shoulder surgery 1992.
Plan
Patient requires admission for severe COPD exacerbation and respiratory failure
Supplemental oxygen as needed
BiPAP if needed
High flow oxygen if appropriate
Spiriva continues
Albuterol nebulizers 4 times daily
Pulmicort nebulizers
Mucolytic's-Mucinex 600 twice daily
Decadron 4 mg IV every 8 hours
Incentive spirometry
Acapella
Consider vest if difficulties mobilizing secretions
Consider chest physiotherapy if difficulties mobilizing secretions
Check cultures
Empiric antibiotics if acute bacterial bronchitis or acute bacterial lower respiratory tree infection is suspected-doxycycline initiated
Consider Procalcitonin level if unsure whether acute respiratory tract bacterial infection exists-caveat may be negative with atypical infections
Diuresis as tolerated.
Monitor renal function, weight, lower extremity edema and electrolytes
Monitor leukocytosis
Monitor blood sugars
Insulin supplementation as needed
Monitor renal function
Smoking cessation counseling provided
DVT prophylaxis recommended
GI prophylaxis recommended if on steroids for prolonged period
Early nutrition
Early mobilization
Reviewed with nursing, respiratory therapy, and primary team.
Outpatient pulmonary [id number] locally or down in [place]-has seen Dr. Roque locally- Last seen 08/29/2023
Diagnostic data:
��
CXR 06/25/22: mild cardiomeg suggestive of elevated pulm venous pressures, no acute evidence of PNA, suspect mild symmetric subpleural inflammatory interstitial pneumonitis.�������
CXR 05/04/22: cardiomegaly with prominent vascularity suggesting CHF�������
CXR 01/02/23- No focal interstitial or airspace opacity.�����
Chest x-ray 10/28/2023-NAD
Chest x-ray 01/18/2024-pulmonary vascularity at top normal
CT abdomen and pelvis 01/14/2024-mild atelectasis at lung bases, small bullae left lung base without pneumothorax, no evidence for intestinal obstruction
US LLE 11/09/19: no evidence of DVT.
ECHO 01/03/23- Low-normal LV function, EF 50%. no significant valvular disease.
Echocardiogram 08/18/2023-EF 50-55%, mild aortic regurgitation
Gino 06/01/22: FVC 1.63/77%, FEV1 0.98/62%, ratio 60%, no significant BD response. Moderate obstruction and suggestive of mild restrictive pattern..
PFTs 07/02/22: FEV1 1.25L 54%, FVC 2.09L 68%, ratio 60. Post FEV1 1.32L 57%. No significant bronchodilator response. TLC 4.34L 84%, DLCO 50% (moderate obstruction, normal volumes, moderate diffusion impairment)�������
Data Reviewed
-
PFT: Report reviewed by me
EKG: Report reviewed by me
Radiology: Report reviewed by me
Medical Tests (Nuc Med, Echo etc): Report reviewed by me
Labs: Labs reviewed by me
Old Records: Reviewed
Total Time Spent with Patient (in minutes): 55
[2024-01-19] MEDS: VENTOLIN NEBULES 2.5 MG INH ×3 (11:38→20:16)
--- NOTE | 2024-01-19 12:20 | W.PN.HOSP.TC ---
Today's Communication/Plan
-
IV steroids
IV diuretics
Continue bronchodilators
MRI spine
Assessment / Plan
Assessment / Plan
# Acute COPD exacerbation
# Chronic COPD on 2 L baseline
-DuoNebs every 6 hours
-Dexamethasone 4 mg every 8 hours
-Doxycycline
-Continue long-acting inhalers
-Mucinex
-Pulmonary consulted
# Mild component of acute on chronic HFpEF exacerbation
-Chest x-ray cannot exclude mild acute pulmonary edema
-Check I's and O's, daily weight
-40 IV Lasix given, continue daily
-Cardiology consulted
# Severe right lower back pain likely muscle spasm with radiation to the abdomen
-Tylenol, tramadol, lidocaine patch
-Add Flexeril
-As needed oxycodone for severe
-Recent CT abdomen pelvis negative for kidney stone pathology
-Check MRI lumbar spine
-Also check urinalysis
History of left-sided sciatic
Distant history of lumbar fracture
Obstructive sleep apnea
-Not on CPAP due to anxiety
History of kidney stones
Active smoker
-Nicotine patch. Counseled more than 20 minutes on complete cessation.
CKD 3A
-Renal function at baseline. Monitor closely with diuretics.
Anxiety/depression
-Continue Xanax
-Continue sertraline, bupropion
Obesity
Full code
DVT prophylaxis�heparin
Cardiac diet
Anticipated Discharge: > 48 hours
Subjective/Interval History
-
Date of Service: January 19, 2024
States shortness of breath
States of cough intermittent sputum
Objective Data
-
Labs:
Laboratory Results
01/19/24
06:05
WBC 12.1 H
Hgb 12.3
Hct 36.9 L
Plt Count 321
Sodium 135
Potassium 4.3
Chloride 97 L
Carbon Dioxide 30
BUN 31 H
Creatinine 1.7 H
Glucose 138 H
Calcium 9.4
Total Bilirubin 0.4
AST 20
ALT 17
Alkaline Phosphatase 81
Vital Signs:
Vital Signs
Temp Pulse Resp BP Pulse Ox
97.6 F 81 20 117/56 95
01/19/24 10:49 01/19/24 11:41 01/19/24 11:41 01/19/24 09:28 01/19/24 11:41
I&O
01/18/24 01/19/24 01/20/24
06:59 06:59 06:59
Intake Total 240 / 240
Output Total 970 / 970 550 / 550
Balance -970 / -970 -310 / -310
Physical Exam
-
General: Well Developed and No Apparent Distress
HEENT: Normocephalic, Atraumatic, Moist Mucous Membranes and Oxygen
Respiratory: Rhonchi
Cardiac: Regular Rhythm and S1/S2; Negative Murmur, Rub or Gallop
GI: Soft, Nontender, Nondistended and Normal Bowel Sounds; Negative Organomegaly
Rectal: Deferred by Provider
Musculoskeletal: No Clubbing, No Cyanosis and No Edema
Skin: Negative Rash
Neuro: Alert, Oriented, AO x 3, No Motor Deficits and Nonfocal/Grossly Intact
[2024-01-19] MEDS: FLEXERIL 10 MG PO (12:33)
[2024-01-19] MEDS: VIBRAMYCIN 260 MG IV ×2 (12:40→21:10)
[2024-01-19] MEDS: ROXICODONE 5 MG PO (16:18)
--- NOTE | 2024-01-19 18:13 | PTCARENOTE ---
Patient admitted into room 413-02 from ER. Vital signs stable. Patient maintained on 4 L NC. Oriented to room, use of call moyer, television and bed controls. Reviewed plan of care with patient. Patient verbalizes understanding of all teaching and
denies questions at this time. Patient ordered dinner. Pure wick set up due to diuresis and back pain.
[2024-01-19] MEDS: DULCOLAX 10 MG PO (21:06)
[2024-01-20 03:20] VITALS: BP 147/70
[2024-01-20] MEDS: ROXICODONE 5 MG PO (03:21)
[2024-01-20] MEDS: DECADRON 4 MG IV ×2 (05:22→14:27)
[2024-01-20] MEDS: VENTOLIN NEBULES 2.5 MG INH ×4 (05:34→20:05)
[2024-01-20 05:39] VITALS: BMI 37.4
[2024-01-20 07:00] VITALS: BP 123/65
[2024-01-20] MEDS: SYMBICORT 160/4.5 MCG INHALER 2 PUFF INH ×2 (07:44→20:05)
[2024-01-20] MEDS: SPIRIVA RESPIMAT 2.5 MCG 2 PUFF INH (07:44)
[2024-01-20 08:06] LABS: Blood Urea Nitrogen 40 mg/dl (7-17); Calcium 9.6 mg/dl (8.4-10.2); Carbon Dioxide 32 mmol/L (22-30); Chloride 97 mmol/L (98-107); Estimated Creatinine Clearance 41 ml/min; Glucose 109 mg/dl (70-99); Potassium 4.2 mmol/L (3.5-5.1); Sodium 135 mmol/L (135-145); eGFR 33.84
--- NOTE | 2024-01-20 08:06 | W.PN.PUL.V3 ---
Today's Communication / Plan
-
Wean oxygen
No change in Decadron-hopefully reduce tomorrow
Continue nebulizers
Doxycycline
MRI back pending
Assessment
-
73-year-old female patient with a history of underlying COPD on 2 L of oxygen followed by Dr. Roque, obstructive sleep apnea CPAP intolerant who is an active smoker with chronic heart failure preserved EF and renal insufficiency presented with
increasing shortness of breath and persistent lower back pain-pulmonary consulted for COPD exacerbation 01/19/2024.
Assessment
Shortness of breath secondary to COPD exacerbation
COPD with acute exacerbation
Leukocytosis
[place]
Hyperglycemia
Conditions present prior to admission:
Repetitive hospitalizations for COPD exacerbation-December, April, July, August, September 2023
Syncope admission August 2020-found minimally responsive, septic shock, left lower extremity fasciitis requiring mechanical ventilation, extensive surgical debridement and wound VAC for 10 months
COPD oxygen dependent 2 L.
Active smoker.
Covid illness September 2023
Obstructive sleep apnea/CPAP intolerant.
Chronic heart failure preserved EF.
Chronic kidney disease stage III.
Anxiety/depression.
Obesity.
Sciatica.
Prior lumbar fracture.
Left lower extremity fasciitis.
Hyponatremia.
Renal calculi.
Cataract. Carpal tunnel release. Cholecystectomy 1975. Shoulder surgery 1992.
Plan
Respiratory status still somewhat tenuous-still with wheezing and shortness of breath
Supplemental oxygen as needed-will need to assess discharge supplemental oxygen needs
BiPAP if needed-currently not requiring
Continue with Spiriva
Albuterol nebulizers 4 times daily
Pulmicort nebulizers
Mucolytic's-Mucinex 600 twice daily-will consider increasing if secretions remain tenacious
Decadron 4 mg IV every 8 hours-no change-likely reduce 01/21/2024
Incentive spirometry
Acapella
Consider vest if difficulties mobilizing secretions
Consider chest physiotherapy if difficulties mobilizing secretions
Cultures reviewed-unrevealing
Empiric antibiotics if acute bacterial bronchitis or acute bacterial lower respiratory tree infection is suspected-doxycycline initiated
Consider Procalcitonin level if unsure whether acute respiratory tract bacterial infection exists-caveat may be negative with atypical infections or aspiration
Continue with diuresis as tolerated
Monitor renal function, weight, lower extremity edema and electrolytes
MRI back 01/20/2024 pending
Follow leukocytosis
Follow blood sugars
Insulin supplementation as needed
Monitor renal function
Smoking cessation counseling provided
DVT prophylaxis recommended
GI prophylaxis recommended if on steroids for prolonged period
Early nutrition
Early mobilization
Outpatient pulmonary [facility] locally or down in [place]-has seen Dr. Roque locally- Last seen 08/29/2023
Diagnostic data:
��
CXR 06/25/22: mild cardiomeg suggestive of elevated pulm venous pressures, no acute evidence of PNA, suspect mild symmetric subpleural inflammatory interstitial pneumonitis.�������
CXR 05/04/22: cardiomegaly with prominent vascularity suggesting CHF�������
CXR 01/02/23- No focal interstitial or airspace opacity.�����
Chest x-ray 10/28/2023-NAD
Chest x-ray 01/18/2024-pulmonary vascularity at top normal
CT abdomen and pelvis 01/14/2024-mild atelectasis at lung bases, small bullae left lung base without pneumothorax, no evidence for intestinal obstruction
US LLE 11/09/19: no evidence of DVT.
ECHO 01/03/23- Low-normal LV function, EF 50%. no significant valvular disease.
Echocardiogram 08/18/2023-EF 50-55%, mild aortic regurgitation
[place] 06/01/22: FVC 1.63/77%, FEV1 0.98/62%, ratio 60%, no significant BD response. Moderate obstruction and suggestive of mild restrictive pattern..
PFTs 07/02/22: FEV1 1.25L 54%, FVC 2.09L 68%, ratio 60. Post FEV1 1.32L 57%. No significant bronchodilator response. TLC 4.34L 84%, DLCO 50% (moderate obstruction, normal volumes, moderate diffusion impairment)�������
Subjective Data
-
Date of Service:
Date of Service: January 20, 2024
Chief Complaint: Pulmonary Follow Up and Dyspnea Follow Up
Subjective:
Continues with some shortness of breath, no chest pain, some wheezing, nonproductive cough,
Review of Systems
General: Other ( per HPI)
Objective Data
Data Reviewed
Vital Signs / I&O:
Vital Signs
Temp Pulse Resp BP Pulse Ox
97.9 F 75 11 147/70 96
01/20/24 03:20 01/20/24 05:38 01/20/24 05:38 01/20/24 03:20 01/20/24 05:38
Intake and Output
01/19/24 01/20/24 01/21/24
06:59 06:59 06:59
Intake Total 1220 / 1220
Output Total 970 / 970 2600 / 2600
Balance -970 / -970 -1380 / -1380
SaO2: 96
Nasal Cannula flow liters per minute: 2
Physical Exam
General: Respiratory Distress (n) and Comfortable
HEENT: Normocephalic, Anicteric and Moist Mucous Membranes
Cardiovascular: Regular Rhythm
Respiratory: Wheeze (Expiratory), Crackles (n), Rhonchi, Non-Labored Respirations, Accessory Resp Muscle Use (n) and Stridor (n)
GI: Soft, Non Distended and Non Tender
Neurology: Awake, Alert and No Motor Deficits
Skin: Warm, Good Color, Cyanosis (n) and Jaundice
Labs/Micro/Reports
Lab Data
01/19/24 06:05
[2024-01-20] MEDS: LASIX 40 MG IV ×2 (08:46→16:15)
[2024-01-20] MEDS: MUCINEX 600 MG PO ×2 (08:47→20:30)
[2024-01-20] MEDS: HEPARIN 5000 UNITS SC ×2 (08:47→20:30)
[2024-01-20] MEDS: CLARITIN 10 MG PO (08:47)
[2024-01-20] MEDS: ZOLOFT 100 MG PO (08:47)
[2024-01-20] MEDS: LIDOCAINE 4% PATCH 1 PATCH TOPICAL (08:48)
[2024-01-20] MEDS: ATIVAN 0.5 MG IV (09:13)
--- NOTE | 2024-01-20 10:12 | W.PN.HOSP.TC ---
Today's Communication/Plan
-
Steroids per pulmonary
Continue bronchodilators
Continue with diuretics
Monitor creatinine
MRI spine pending
Assessment / Plan
Assessment / Plan
# Acute COPD exacerbation
# Chronic COPD on 2 L baseline
-DuoNebs every 6 hours
-Dexamethasone 4 mg every 8 hours
-Doxycycline
-Continue long-acting inhalers
-Mucinex
-Pulmonary on board.
# Mild component of acute on chronic HFpEF exacerbation
-Chest x-ray cannot exclude mild acute pulmonary edema
-Check I's and O's, daily weight
-40 IV Lasix given, continue daily. Good urinary output.
-Cardiology consulted
# Severe right lower back pain likely muscle spasm with radiation to the abdomen
#History of left-sided sciatic
#Distant history of lumbar fracture
-Tylenol, tramadol, lidocaine patch
-Add Flexeril
-As needed oxycodone for severe
-Recent CT abdomen pelvis negative for kidney stone pathology
-Check MRI lumbar spine
Obstructive sleep apnea
-Not on CPAP due to anxiety
History of kidney stones
Active smoker
-Nicotine patch. Counseled more than 20 minutes on complete cessation.
CKD 3A
-Renal function at baseline. Monitor closely with diuretics.
Anxiety/depression
-Continue Xanax
-Continue sertraline, bupropion
Obesity
Full code
DVT prophylaxis�heparin
Cardiac diet
Anticipated Discharge: > 48 hours
Subjective/Interval History
-
Date of Service: January 20, 2024
States of low back pain
intermittent cough
Objective Data
-
Labs:
Laboratory Results
01/20/24
06:58
Sodium 135
Potassium 4.2
Chloride 97 L
Carbon Dioxide 32 H
BUN 40 H
Creatinine 1.6 H
Glucose 109 H
Calcium 9.6
Vital Signs:
Vital Signs
Temp Pulse Resp BP Pulse Ox
97.7 F 77 22 123/65 96
01/20/24 07:00 01/20/24 08:46 01/20/24 08:21 01/20/24 08:46 01/20/24 08:21
I&O
01/19/24 01/20/24 01/21/24
06:59 06:59 06:59
Intake Total 1220 / 1220
Output Total 970 / 970 2600 / 2600
Balance -970 / -970 -1380 / -1380
Physical Exam
-
General: Well Developed and No Apparent Distress
HEENT: Normocephalic, Atraumatic, Moist Mucous Membranes and Oxygen
Respiratory: Rhonchi
Cardiac: Regular Rhythm and S1/S2; Negative Murmur, Rub or Gallop
GI: Soft, Nontender, Nondistended and Normal Bowel Sounds; Negative Organomegaly
Rectal: Deferred by Provider
Musculoskeletal: No Clubbing, No Cyanosis and No Edema
Skin: Negative Rash
Neuro: Awake, Alert, Oriented, AO x 3, No Motor Deficits and Nonfocal/Grossly Intact
Psych: Calm
--- NOTE | 2024-01-20 10:22 | W.PN.CD ---
Today's Communication / Plan
-
Continue current diuretics and closely monitor patient's weights and renal function.
Continue treatment of COPD as directed by pulmonary and primary team
Impression / Plan
-
HFpEF, [id number]:
-Initially felt to have a component of acute on chronic heart failure on admission along with COPD exacerbation.
-Continue IV lasix- - this medicine requires intensive monitoring
-Monitor weights and renal function.
-will coffey SGLT2 inhibitors
COPD exacerbation:
-Still with diffuse wheezing.
-Additional management as per pulmonary and primary team
-Patient currently on steroids and nebs.
CKD. Monitor with diuresis
Back pain/right flank pain management directed by primary team.
Physical Exam
Vital Signs/Labs
Vital Signs
Temp Pulse Resp BP Pulse Ox
97.7 F 77 22 123/65 96
01/20/24 07:00 01/20/24 08:46 01/20/24 08:21 01/20/24 08:46 01/20/24 08:21
01/19/24 01/20/24 01/21/24
06:59 06:59 06:59
Actual Weight 111.584 kg
01/19/24 06:05
01/20/24 06:58
01/18/24
20:34
[id number]-A-Itfvfqlzmfw Pept 582
Physical Exam
Constitutional: No acute distress
Cardiovascular: Rhythm & rate is regular
Respiratory: Wheeze Present (Diffuse wheezes throughout)
GI: Soft
Neuro/Psych: Alert
Data Reviewed
-
Date of Service: January 20, 2024
Medical Decision Making: Reviewed Test Results
Medical Tests (PFT, Pathology etc): Report Reviewed by me
Labs: Labs Reviewed by me
[2024-01-20] MEDS: WELLBUTRIN XL (24 hour extended release) 300 MG PO (10:47)
[2024-01-20] MEDS: FLEXERIL 10 MG PO (10:47)
[2024-01-20 11:00] VITALS: BP 131/70
[2024-01-20] MEDS: SUDAFED 12 HOUR (EXTENDED RELEASE) 120 MG PO (11:04)
[2024-01-20] MEDS: NSS (PRESERVATIVE FREE) 0.25 ML IV (11:05)
[2024-01-20] MEDS: VIBRAMYCIN 260 MG IV ×2 (11:24→22:04)
--- NOTE | 2024-01-20 13:28 | CM ---
CM received consult for coffey of Farxiga and Jardiance 10 mg. Both medication for 30 day supply: $47.00, 90 day supply through [facility] $126.00.
Patient seen bedside, initial assessment completed. Patient reports she resides in [place] but has been with her daughter for the past 6 months. Patient reports her daughters home is a multiple story home but she is living on the first floor.
Patient denies DME other than home oxygen through [employer]. Patient reports [facility] in the past, denies SNF history. Patient agreeable to PT recommendation of SNF, requesting referrals to [facility] and [facility].
Patient confirms PCP Ant Diaz, [facility]. CM will send referrals, will continue to follow for discharge planning needs.
Plan; SNF pending accepting facility.
[2024-01-20 15:00] VITALS: BP 121/73
--- NOTE | 2024-01-20 18:33 | PTCARENOTE ---
Patient with hallucinations since this afternoon after her MRI, Patient received Ativan 0.5mg IV prior to her MRI and one dose of flexaril today. Patient is also on decadron IV. aware. Calling for remote med sitter as patient is talking to people
that are not there and talking to them. Patient attempted to reorient as she also has concurrent confusion.
[2024-01-20 19:48] VITALS: BP 146/71
[2024-01-20] MEDS: DESENEX/MITRAZOL/ZEASORB 1 APPLIC TOPICAL (20:28)
[2024-01-20] MEDS: SENOKOT-S 1 TABLET PO (20:29)
[2024-01-20] MEDS: NICODERM TRANSDERMAL 7 MG TRANSDERM (22:45)
[2024-01-20 23:57] VITALS: BP 129/59
[2024-01-21] MEDS: DUONEB 3 ML INH (02:04)
[2024-01-21 03:28] VITALS: BP 140/72
[2024-01-21 06:00] VITALS: BMI 36.9
--- NOTE | 2024-01-21 06:30 | PTCARENOTE ---
Patient hallucinating overnight that there are people in her room and talking to herself. Spoke with patient's daughter Alma Delia on the phone who states the patient has had episodes similar to this in prior hospitalizations. Patient able to be
reoriented, answers questions appropriately. Medsitter and bed alarm in place. CAR STORER made aware. Plan of care ongoing.
[2024-01-21 07:24] VITALS: BP 121/63
[2024-01-21] MEDS: VENTOLIN NEBULES 2.5 MG INH ×4 (07:52→19:39)
[2024-01-21] MEDS: SYMBICORT 160/4.5 MCG INHALER 2 PUFF INH ×2 (07:52→19:39)
[2024-01-21] MEDS: SPIRIVA RESPIMAT 2.5 MCG 2 PUFF INH (07:52)
[2024-01-21 08:00] LABS: Blood Urea Nitrogen 49 mg/dl (7-17); Calcium 9.5 mg/dl (8.4-10.2); Carbon Dioxide 31 mmol/L (22-30); Chloride 98 mmol/L (98-107); Estimated Creatinine Clearance 38 ml/min; Glucose 125 mg/dl (70-99); Potassium 3.5 mmol/L (3.5-5.1); Sodium 136 mmol/L (135-145); eGFR 31.47
[2024-01-21] MEDS: HEPARIN 5000 UNITS SC ×2 (08:51→20:12)
[2024-01-21] MEDS: NICODERM TRANSDERMAL 7 MG TRANSDERM (09:52)
[2024-01-21] MEDS: LIDOCAINE 4% PATCH 1 PATCH TOPICAL (09:52)
[2024-01-21] MEDS: ZOLOFT 100 MG PO (10:28)
[2024-01-21] MEDS: WELLBUTRIN XL (24 hour extended release) 300 MG PO (10:28)
[2024-01-21] MEDS: SUDAFED 12 HOUR (EXTENDED RELEASE) 120 MG PO (10:28)
[2024-01-21] MEDS: CLARITIN 10 MG PO (10:29)
[2024-01-21] MEDS: LASIX 40 MG IV ×2 (10:29→16:02)
[2024-01-21] MEDS: DESENEX/MITRAZOL/ZEASORB 1 APPLIC TOPICAL ×2 (10:29→20:19)
[2024-01-21] MEDS: SENOKOT-S 1 TABLET PO ×2 (10:29→20:10)
[2024-01-21] MEDS: MUCINEX 600 MG PO ×2 (10:29→20:10)
[2024-01-21] MEDS: DECADRON 4 MG IV ×2 (10:30→20:11)
[2024-01-21] MEDS: VIBRAMYCIN 260 MG IV ×2 (10:30→21:35)
--- NOTE | 2024-01-21 11:10 | W.PN.CD ---
Today's Communication / Plan
-
- Diffuse wheezing
- Lasix to keep her dry
- COPD management as per primary
Impression / Plan
-
HFpEF, [id number]:
-Initially felt to have a component of acute on chronic heart failure on admission along with COPD exacerbation.
-Continue IV lasix- - this medicine requires intensive monitoring
-Monitor weights and renal function.
-ECHO 08/18/23: LVEF 55-60%, Mild AI
-will get benefit from SGLT2 inhibitors - coffey for affordability.
COPD exacerbation:
-Still with diffuse wheezing.
-Additional management as per pulmonary and primary team
-Patient currently on steroids and nebs.
CKD. Monitor with diuresis
Back pain/right flank pain management directed by primary team.
Physical Exam
Vital Signs/Labs
Vital Signs
Temp Pulse Resp BP Pulse Ox
97.7 F 71 20 121/63 94
01/21/24 07:24 01/21/24 08:00 01/21/24 08:00 01/21/24 07:24 01/21/24 07:24
01/20/24 01/21/24 01/22/24
06:59 06:59 07:59
Actual Weight 111.584 kg 109.939 kg
01/19/24 06:05
01/21/24 07:05
01/18/24
20:34
Rtd-R-Twquuqxsmwc Pept 582
Physical Exam
Constitutional: No acute distress and Distress (back pain)
EENT: Anicteric and Moist mucous membranes
Cardiovascular: Rhythm & rate is regular, Pedal edema is absent, JVD present and Systolic murmur present
Respiratory: Respiratory effort normal, Wheeze Present and Rhonchi Present
GI: Soft, Non tender and Normal bowel sounds
Neuro/Psych: Alert, Oriented, AO x 3 and Motor deficits absent
Data Reviewed
-
Date of Service: January 21, 2024
Medical Decision Making: Reviewed Test Results, Independent Historian Assessment, Test Interpretation and Review of Case with other Provider
EKG: Tracing Personally Visualized and interpreted
Echo: Report Reviewed by me
Labs: Labs Reviewed by me
Old Records: Reviewed
--- NOTE | 2024-01-21 11:12 | W.PN.HOSP.TC ---
Today's Communication/Plan
-
Continue diuretics per cardiology
Wean steroids per pulmonary
Resume oxycodone
Continue with PT
Assessment / Plan
Assessment / Plan
# Acute COPD exacerbation
# Chronic COPD on 2 L baseline
-DuoNebs every 6 hours
-Dexamethasone 4 mg every 12 hours -wean per pulm
-Doxycycline
-Continue long-acting inhalers
-Mucinex
-Pulmonary on board.
# Mild component of acute on chronic HFpEF exacerbation
-Chest x-ray cannot exclude mild acute pulmonary edema
-Check I's and O's, daily weight
-40 IV Lasix given, continue daily. Good urinary output.
-Cardiology following
- Wt down to 242 lbs which is close to her baseline -consider switch to PO lasix
# Severe lower back pain with some radiation today to left side of back and to back of left thigh.No foot weakness
#History of left-sided sciatic
#Distant history of lumbar fracture
MRI of the lumbar spine shows acute to subacute L2 fracture but no disc bulge or stenosis to account for her radiation to the back of the thigh.
-Tylenol, tramadol, lidocaine patch
-She had issues with TME from pain medication and Flexeril combination. Off of Flexeril. Restart oxycodone so it will facilitate mobility and working with PT. Watch closely for any recurrence of TME.
Obstructive sleep apnea
-Not on CPAP due to anxiety
History of kidney stones
Active smoker
-Nicotine patch. Counseled more than 20 minutes on complete cessation.
CKD 3A
-Renal function at baseline. Monitor closely with diuretics.
Anxiety/depression
-Continue Xanax
-Continue sertraline, bupropion
Obesity
Full code
DVT prophylaxis�heparin
Cardiac diet
Anticipated Discharge: > 48 hours
Subjective/Interval History
-
Date of Service: January 21, 2024
Main complaint today is low back pain. Has had some radiation to the left side and to the back of the left leg to the thigh area. No weakness in the foot. Requesting something for pain.
Breathing is improved.
Objective Data
-
Labs:
Laboratory Results
01/21/24
07:05
Sodium 136
Potassium 3.5
Chloride 98
Carbon Dioxide 31 H
BUN 49 H
Creatinine 1.7 H
Glucose 125 H
Calcium 9.5
Vital Signs:
Vital Signs
Temp Pulse Resp BP Pulse Ox
97.7 F 71 20 121/63 94
01/21/24 07:24 01/21/24 08:00 01/21/24 08:00 01/21/24 07:24 01/21/24 07:24
I&O
01/20/24 01/21/24 01/22/24
06:59 06:59 07:59
Intake Total 1220 / 1220 1080 / 1080
Output Total 2600 / 2600 800 / 800
Balance -1380 / -1380 280 / 280
Review of Systems
-
Constitutional: Denies Fever
Cardiac: Denies Chest Pain or Palpitations
Abdomen/GI: Denies Abdominal Pain, Nausea or Vomiting
Neuro: Denies Dizzy
Physical Exam
-
General: No Apparent Distress
HEENT: Moist Mucous Membranes
Respiratory: Wheezes and Non Labored Respirations; Negative Accessory Resp Muscle Use
Cardiac: Regular Rhythm and S1/S2
GI: Soft
Neuro: AO x 3 and No Motor Deficits (checked distal LE strength only)
Psych: Calm
Data Reviewed
-
Labs: Labs Reviewed by me
[2024-01-21 11:27] VITALS: BP 131/61
--- NOTE | 2024-01-21 12:09 | W.PN.PUL3 ---
Today's Communication / Plan
-
SOB seems to be improving
Continue IV lasix
Transition to PO prednisone in AM, dose lowered to q12 already
Would encourage rehab, she is agreeable to it--PT following
Likely will need skilled rehab at discharge
Outpatient pulmonary FU planning
Assessment
-
73-year-old female patient with a history of underlying COPD on 2 L of oxygen followed by Dr. Roque, obstructive sleep apnea CPAP intolerant who is an active smoker with chronic heart failure preserved EF and renal insufficiency presented with
increasing shortness of breath and persistent lower back pain-pulmonary consulted for COPD exacerbation 01/19/2024.
Shortness of breath secondary to COPD exacerbation
COPD with acute exacerbation
Leukocytosis
[place]
Hyperglycemia
Conditions present prior to admission:
Repetitive hospitalizations for COPD exacerbation-December, April, July, August, September 2023
Syncope admission August 2020-found minimally responsive, septic shock, left lower extremity fasciitis requiring mechanical ventilation, extensive surgical debridement and wound VAC for 10 months
COPD oxygen dependent 2 L.
Active smoker.
Covid illness September 2023
Obstructive sleep apnea/CPAP intolerant.
Chronic heart failure preserved EF.
Chronic kidney disease stage III.
Anxiety/depression.
Obesity.
Sciatica.
Prior lumbar fracture.
Left lower extremity fasciitis.
Hyponatremia.
Renal calculi.
Cataract. Carpal tunnel release. Cholecystectomy 1975. Shoulder surgery 1992.
Plan
Respiratory status improving, she is chronically SOB
Last admission in Oct 2023
She has been admitted for AECOPD: 11/01/23, 08/21/23, 07/27/23, 01/11/23, 05/11/22
Last seen in our office in Aug but has not been FU consistently
Supplemental oxygen as needed-will need to assess discharge supplemental oxygen needs
BiPAP if needed-currently not requiring
Continue with Spiriva
Albuterol nebulizers 4 times daily
Pulmicort nebulizers
Mucolytic's-Mucinex 600 twice daily-will consider increasing if secretions remain tenacious
Decadron 4 mg IV every 12 for now, will transition to PO in AM
Incentive spirometry
Acapella
Consider vest if difficulties mobilizing secretions
Consider chest physiotherapy if difficulties mobilizing secretions
Cultures reviewed-unrevealing
Empiric antibiotics if acute bacterial bronchitis or acute bacterial lower respiratory tree infection is suspected-doxycycline initiated
Consider Procalcitonin level if unsure whether acute respiratory tract bacterial infection exists-caveat may be negative with atypical infections or aspiration
Continue with diuresis as tolerated
Monitor renal function, weight, lower extremity edema and electrolytes
MRI back 01/20/2024 w/ Mild compression fracture of the L2 superior endplate, acute or subacute.
Minimal retropulsion but no secondary spinal canal stenosis.
Outpatient spine eval
Follow leukocytosis
Follow blood sugars
Insulin supplementation as needed
Monitor renal function
Smoking cessation counseling provided
DVT prophylaxis recommended
GI prophylaxis recommended if on steroids for prolonged period
Early nutrition
Early mobilization
Outpatient pulmonary [facility]dy[facility] locally or down in [place]-has seen Dr. Roque locally- Last seen 08/29/2023
Diagnostic data:
��
CXR 06/25/22: mild cardiomeg suggestive of elevated pulm venous pressures, no acute evidence of PNA, suspect mild symmetric subpleural inflammatory interstitial pneumonitis.�������
CXR 05/04/22: cardiomegaly with prominent vascularity suggesting CHF�������
CXR 01/02/23- No focal interstitial or airspace opacity.�����
Chest x-ray 10/28/2023-NAD
Chest x-ray 01/18/2024-pulmonary vascularity at top normal
CT abdomen and pelvis 01/14/2024-mild atelectasis at lung bases, small bullae left lung base without pneumothorax, no evidence for intestinal obstruction
US LLE 11/09/19: no evidence of DVT.
ECHO 01/03/23- Low-normal LV function, EF 50%. no significant valvular disease.
Echocardiogram 08/18/2023-EF 50-55%, mild aortic regurgitation
[place] 06/01/22: FVC 1.63/77%, FEV1 0.98/62%, ratio 60%, no significant BD response. Moderate obstruction and suggestive of mild restrictive pattern..
PFTs 07/02/22: FEV1 1.25L 54%, FVC 2.09L 68%, ratio 60. Post FEV1 1.32L 57%. No significant bronchodilator response. TLC 4.34L 84%, DLCO 50% (moderate obstruction, normal volumes, moderate diffusion impairment)�������
Subjective Data
-
Date of Service:
Date of Service: January 21, 2024
Chief Complaint: Pulmonary Follow Up and Dyspnea Follow Up
Subjective:
no new complaints
has noticed more anxiety, hallucinations, confusion while inpatient
Has hip pain
but feels her SOB has improved
Objective Data
Data Reviewed
Vital Signs / I&O / Oxygen:
Vital Signs
Temp Pulse Resp BP Pulse Ox
97.7 F 70 18 131/61 97
01/21/24 11:27 01/21/24 11:32 01/21/24 11:32 01/21/24 11:27 01/21/24 11:27
Intake and Output
01/20/24 01/21/24 01/22/24
06:59 06:59 07:59
Intake Total 1220 / 1220 1080 / 1080
Output Total 2600 / 2600 800 / 800
Balance -1380 / -1380 280 / 280
SaO2 97
Nasal Cannula flow liters per 3
minute
Physical Exam
General: Respiratory Distress (n), Comfortable and Other (NAD)
HEENT: Normocephalic, Anicteric and Moist Mucous Membranes
Cardiovascular: Regular Rhythm
Respiratory: Clear, Crackles (n), Non-Labored Respirations, Accessory Resp Muscle Use (n) and Stridor (n)
GI: Soft, Non Distended and Non Tender
Neurology: Awake, Alert, Oriented, AO x 3 and No Motor Deficits
Skin: Warm, Good Color, Cyanosis (n) and Jaundice
Labs/Micro/Reports
Lab Data
01/19/24 06:05
01/21/24 07:05
Microbiology
01/18/24 23:10 Urine Urine Culture - Final
[2024-01-21] MEDS: ROXICODONE 5 MG PO ×2 (12:35→20:10)
[2024-01-21 15:32] VITALS: BP 138/57
[2024-01-21 19:35] VITALS: BP 150/78
[2024-01-21 23:22] VITALS: BP 111/61
[2024-01-22] VITALS (7 sets, daily range): BP systolic 101–135; BP diastolic 65–85; PULSE 95; O2SAT 91; BMI 37.2
[2024-01-22] MEDS: DUONEB 3 ML INH (03:58)
[2024-01-22 07:24] LABS: Blood Urea Nitrogen 50 mg/dl (7-17); Calcium 9.4 mg/dl (8.4-10.2); Carbon Dioxide 31 mmol/L (22-30); Chloride 98 mmol/L (98-107); Estimated Creatinine Clearance 38 ml/min; Glucose 130 mg/dl (70-99); Sodium 135 mmol/L (135-145); eGFR 31.47
[2024-01-22] MEDS: DELTASONE 40 MG PO (08:18)
[2024-01-22] MEDS: HEPARIN 5000 UNITS SC ×2 (08:19→22:22)
[2024-01-22] MEDS: MUCINEX 600 MG PO ×2 (08:20→22:22)
[2024-01-22] MEDS: ZOLOFT 100 MG PO (08:20)
[2024-01-22] MEDS: WELLBUTRIN XL (24 hour extended release) 300 MG PO (08:20)
[2024-01-22] MEDS: LIDOCAINE 4% PATCH 1 PATCH TOPICAL (08:21)
[2024-01-22] MEDS: SENOKOT-S 1 TABLET PO ×2 (08:21→22:22)
[2024-01-22] MEDS: CLARITIN 10 MG PO (08:21)
[2024-01-22] MEDS: SUDAFED 12 HOUR (EXTENDED RELEASE) 120 MG PO (08:21)
[2024-01-22] MEDS: DESENEX/MITRAZOL/ZEASORB 1 APPLIC TOPICAL ×2 (08:22→22:20)
[2024-01-22] MEDS: NICODERM TRANSDERMAL 7 MG TRANSDERM (08:23)
[2024-01-22] MEDS: LASIX 40 MG IV ×2 (08:24→15:59)
[2024-01-22] MEDS: SPIRIVA RESPIMAT 2.5 MCG 2 PUFF INH (08:26)
[2024-01-22] MEDS: SYMBICORT 160/4.5 MCG INHALER 2 PUFF INH ×2 (08:26→19:25)
[2024-01-22] MEDS: VENTOLIN NEBULES 2.5 MG INH ×4 (08:26→19:25)
[2024-01-22] MEDS: VIBRAMYCIN 260 MG IV (09:46)
--- NOTE | 2024-01-22 09:51 | W.PN.CD ---
Today's Communication / Plan
-
- continue diuresis with steroids and COPD
Impression / Plan
-
HFpEF, opxff-[id number]-jpjtzaq:
-Initially felt to have a component of acute on chronic heart failure on admission along with COPD exacerbation.
-Continue IV lasix- - this medicine requires intensive monitoring
-Monitor weights and renal function.
-ECHO 08/18/23: LVEF 55-60%, Mild AI
-will get benefit from SGLT2 inhibitors - coffey for affordability.
COPD exacerbation:
-Still with diffuse wheezing.
-Additional management as per pulmonary and primary team
-Patient currently on steroids and nebs.
CKD. Monitor with diuresis
Back pain/right flank pain management directed by primary team.
Physical Exam
Vital Signs/Labs
Vital Signs
Temp Pulse Resp BP Pulse Ox
97.5 F 76 18 135/66 98
01/22/24 07:33 01/22/24 08:52 01/22/24 08:52 01/22/24 08:24 01/22/24 08:52
01/21/24 01/22/24 01/23/24
05:59 06:59 06:59
Actual Weight
01/19/24 06:05
01/22/24 06:35
01/18/24
20:34
Owq-F-Brjkbdsiymo Pept 582
Physical Exam
Constitutional: No acute distress and Comfortable
EENT: Anicteric and Moist mucous membranes
Cardiovascular: Rhythm & rate is regular, Pedal edema is absent and JVD pressure is normal
Respiratory: Respiratory effort normal, Wheeze Present and Rhonchi Present
GI: Soft, Non tender and Normal bowel sounds
Neuro/Psych: Alert, Oriented and AO x 3
Data Reviewed
-
Date of Service: January 22, 2024
Medical Decision Making: Reviewed Test Results, Independent Historian Assessment and Test Interpretation
EKG: Tracing Personally Visualized and interpreted
Echo: Report Reviewed by me
Labs: Labs Reviewed by me
Old Records: Reviewed
--- NOTE | 2024-01-22 10:28 | W.PN.HOSP.TC ---
Today's Communication/Plan
-
CW Pred and doxycycline
CW IV diuresis per cards
CW PT
DC planning
Assessment / Plan
Assessment / Plan
# Acute COPD exacerbation
# Chronic COPD on 2 L baseline
-DuoNebs every 6 hours
-Steroids changed to oral prednisone yesterday
-Doxycycline
-Continue long-acting inhalers
-Mucinex
-Pulmonary on board.
# Mild component of acute on chronic HFpEF exacerbation
-Chest x-ray cannot exclude mild acute pulmonary edema
-Check I's and O's, daily weight
-40 IV Lasix given, continue daily. Good urinary output.
-Cardiology following
- Wt down to 244 lbs which is close to her baseline
# Severe lower back pain with some radiation today to left side of back and to back of left thigh.No foot weakness
#History of left-sided sciatic
#Distant history of lumbar fracture
MRI of the lumbar spine shows acute to subacute L2 fracture but no disc bulge or stenosis to account for her radiation to the back of the thigh.
-Tylenol, tramadol, lidocaine patch
-She had issues with TME from pain medication and Flexeril combination. Off of Flexeril. Restarted oxycodone so it will facilitate mobility and working with PT. Watch closely for any recurrence of TME-no confusion .
Obstructive sleep apnea
-Not on CPAP due to anxiety
History of kidney stones
Active smoker
-Nicotine patch. Counseled more than 20 minutes on complete cessation.
CKD 3A
-Renal function at baseline. Monitor closely with diuretics.
Anxiety/depression
-Continue Xanax
-Continue sertraline, bupropion
Obesity
Full code
DVT prophylaxis�heparin
Cardiac diet
Would need SNF on dc
Anticipated Discharge: 24 - 48 hours
Subjective/Interval History
-
Date of Service: January 22, 2024
Feeling better both with the back pain and as well as breathing.
Objective Data
-
Labs:
Laboratory Results
01/22/24
06:35
Sodium 135
Potassium 4.0
Chloride 98
Carbon Dioxide 31 H
BUN 50 H
Creatinine 1.7 H
Glucose 130 H
Calcium 9.4
Vital Signs:
Vital Signs
Temp Pulse Resp BP Pulse Ox
97.5 F 76 18 135/66 98
01/22/24 07:33 01/22/24 08:52 01/22/24 08:52 01/22/24 08:24 01/22/24 08:52
I&O
01/21/24 01/22/24 01/23/24
05:59 06:59 06:59
Intake Total
Output Total
Balance
Review of Systems
-
Constitutional: Denies Fever
Cardiac: Denies Chest Pain
Abdomen/GI: Denies Abdominal Pain, Nausea or Vomiting
Neuro: Denies Dizzy
Physical Exam
-
General: No Apparent Distress
HEENT: Moist Mucous Membranes
Respiratory: Wheezes and Non Labored Respirations; Negative Accessory Resp Muscle Use
Cardiac: Regular Rhythm and S1/S2
Neuro: AO x 3
Psych: Calm; Negative Confused
Data Reviewed
-
Labs: Labs Reviewed by me
[2024-01-22] MEDS: ROXICODONE 5 MG PO ×2 (12:07→17:42)
--- NOTE | 2024-01-22 12:29 | W.PN.PUL3 ---
Today's Communication / Plan
-
Transition to PO prednisone today, continue slow taper at discharge
Diuresis per team
Likely to need SNF placement at discharge
Outpatient pulmonary FU recommended
Assessment
-
73-year-old female patient with a history of underlying COPD on 2 L of oxygen followed by Dr. Roque, obstructive sleep apnea CPAP intolerant who is an active smoker with chronic heart failure preserved EF and renal insufficiency presented with
increasing shortness of breath and persistent lower back pain-pulmonary consulted for COPD exacerbation 01/19/2024.
Shortness of breath secondary to COPD exacerbation
COPD with acute exacerbation
Leukocytosis
[place]
Hyperglycemia
Conditions present prior to admission:
Repetitive hospitalizations for COPD exacerbation-December, April, July, August, September 2023
Syncope admission August 2020-found minimally responsive, septic shock, left lower extremity fasciitis requiring mechanical ventilation, extensive surgical debridement and wound VAC for 10 months
COPD oxygen dependent 2 L.
Active smoker.
Covid illness September 2023
Obstructive sleep apnea/CPAP intolerant.
Chronic heart failure preserved EF.
Chronic kidney disease stage III.
Anxiety/depression.
Obesity.
Sciatica.
Prior lumbar fracture.
Left lower extremity fasciitis.
Hyponatremia.
Renal calculi.
Cataract. Carpal tunnel release. Cholecystectomy 1975. Shoulder surgery 1992.
Plan
Respiratory status improving, she is chronically SOB
Last admission in Oct 2023
She has been admitted for AECOPD: 11/01/23, 08/21/23, 07/27/23, 01/11/23, 05/11/22
Last seen in our office in Aug but has not been FU consistently
Supplemental oxygen as needed-will need to assess discharge supplemental oxygen needs
BiPAP if needed-currently not requiring
Continue with Spiriva
Albuterol nebulizers 4 times daily
Pulmicort nebulizers
Mucolytic's-Mucinex 600 twice daily-will consider increasing if secretions remain tenacious
Decadron 4 mg IV every 12 for now, will transition to PO in AM
Incentive spirometry
Acapella
Consider vest if difficulties mobilizing secretions
Consider chest physiotherapy if difficulties mobilizing secretions
Cultures reviewed-unrevealing
Empiric antibiotics if acute bacterial bronchitis or acute bacterial lower respiratory tree infection is suspected-doxycycline initiated
Consider Procalcitonin level if unsure whether acute respiratory tract bacterial infection exists-caveat may be negative with atypical infections or aspiration
Continue with diuresis as tolerated
Monitor renal function, weight, lower extremity edema and electrolytes
MRI back 01/20/2024 w/ Mild compression fracture of the L2 superior endplate, acute or subacute.
Minimal retropulsion but no secondary spinal canal stenosis.
Outpatient spine eval
Follow leukocytosis
Follow blood sugars
Insulin supplementation as needed
Monitor renal function
Smoking cessation counseling provided
DVT prophylaxis recommended
GI prophylaxis recommended if on steroids for prolonged period
Early nutrition
Early mobilization
Outpatient pulmonary [id number] locally or down in [place]-has seen Dr. Roque locally- Last seen 08/29/2023
Diagnostic data:
��
CXR 06/25/22: mild cardiomeg suggestive of elevated pulm venous pressures, no acute evidence of PNA, suspect mild symmetric subpleural inflammatory interstitial pneumonitis.�������
CXR 05/04/22: cardiomegaly with prominent vascularity suggesting CHF�������
CXR 01/02/23- No focal interstitial or airspace opacity.�����
Chest x-ray 10/28/2023-NAD
Chest x-ray 01/18/2024-pulmonary vascularity at top normal
CT abdomen and pelvis 01/14/2024-mild atelectasis at lung bases, small bullae left lung base without pneumothorax, no evidence for intestinal obstruction
US LLE 11/09/19: no evidence of DVT.
ECHO 01/03/23- Low-normal LV function, EF 50%. no significant valvular disease.
Echocardiogram 08/18/2023-EF 50-55%, mild aortic regurgitation
[place] 06/01/22: FVC 1.63/77%, FEV1 0.98/62%, ratio 60%, no significant BD response. Moderate obstruction and suggestive of mild restrictive pattern..
PFTs 07/02/22: FEV1 1.25L 54%, FVC 2.09L 68%, ratio 60. Post FEV1 1.32L 57%. No significant bronchodilator response. TLC 4.34L 84%, DLCO 50% (moderate obstruction, normal volumes, moderate diffusion impairment)�������
Subjective Data
-
Date of Service:
Date of Service: January 22, 2024
Chief Complaint: Pulmonary Follow Up and Dyspnea Follow Up
Subjective:
no new complaints
feeling her SOB is improving
pain better
Objective Data
Data Reviewed
Vital Signs / I&O / Oxygen:
Vital Signs
Temp Pulse Resp BP Pulse Ox
97.2 F 85 22 113/77 94
01/22/24 12:00 01/22/24 12:00 01/22/24 12:00 01/22/24 12:00 01/22/24 12:00
Intake and Output
01/21/24 01/22/24 01/23/24
05:59 06:59 06:59
Intake Total
Output Total 1100 / 1100
Balance -1100 / -1100
SaO2 94
Nasal Cannula flow liters per 4
minute
Physical Exam
General: Respiratory Distress (n), Comfortable and Other (NAD)
HEENT: Normocephalic, Anicteric and Moist Mucous Membranes
Cardiovascular: Regular Rhythm
Respiratory: Clear, Crackles (n), Non-Labored Respirations, Accessory Resp Muscle Use (n) and Stridor (n)
GI: Soft, Non Distended and Non Tender
Neurology: Awake, Alert, Oriented, AO x 3 and No Motor Deficits
Skin: Warm, Good Color, Cyanosis (n) and Jaundice
Labs/Micro/Reports
Lab Data
01/19/24 06:05
01/22/24 06:35
Microbiology
01/18/24 23:10 Urine Urine Culture - Final
[2024-01-22] MEDS: VIBRAMYCIN 100 MG PO (22:23)
[2024-01-23] VITALS (7 sets, daily range): BP systolic 96–167; BP diastolic 56–75; BMI 37.3
[2024-01-23] MEDS: SPIRIVA RESPIMAT 2.5 MCG 2 PUFF INH (07:50)
[2024-01-23] MEDS: SYMBICORT 160/4.5 MCG INHALER 2 PUFF INH ×2 (07:51→19:33)
[2024-01-23] MEDS: VENTOLIN NEBULES 2.5 MG INH ×4 (07:51→19:33)
--- NOTE | 2024-01-23 08:10 | W.PN.PUL3 ---
Today's Communication / Plan
-
Continue PO prednisone with slow taper (see below for details) -- she apparently takes prednisone 20mg daily, hence once at 20mg daily then continue this dose until she sees her biostatistics director as an outpatient
Resume Breztri upon discharge
Maintain SpO2 >88% but keep SpO2 <95%
Diuresis per team --> trend BNP and check 2-v CXR in AM to reassess lung parenchyma
Will be DC'd to SNF s/p discharge as per PT
Outpatient pulmonary FU recommended with Dr. Roque - last office visit on 08/29/2023 - Will arrange for outpatient follow-up and we will obtain full PFTs and 6MWT at that office appt.
Assessment
-
73-year-old female patient with a history of underlying COPD on 2 L of oxygen followed by Dr. Roque, obstructive sleep apnea CPAP intolerant who is an active smoker with chronic heart failure preserved EF and renal insufficiency presented with
increasing shortness of breath and persistent lower back pain-pulmonary consulted for COPD exacerbation 01/19/2024.
COPD with acute exacerbation
Shortness of breath secondary to above with suspected acute HFpEF exacerbation
Obesity (BMI: 37)
Leukocytosis
[place]
Hyperglycemia
Conditions present prior to admission:
Repetitive hospitalizations for COPD exacerbation-December, April, July, August, September 2023
Syncope admission August 2020-found minimally responsive, septic shock, left lower extremity fasciitis requiring mechanical ventilation, extensive surgical debridement and wound VAC for 10 months
COPD oxygen dependent 2 L.
Active smoker.
Covid illness September 2023
Obstructive sleep apnea/CPAP intolerant.
Chronic heart failure preserved EF.
Chronic kidney disease stage III.
Anxiety/depression.
Obesity.
Sciatica.
Prior lumbar fracture.
Left lower extremity fasciitis.
Hyponatremia.
Renal calculi.
Cataract. Carpal tunnel release. Cholecystectomy 1975. Shoulder surgery 1992.
Plan
Respiratory status improving, she is chronically SOB
Last admission in Oct 2023
She has been admitted for AECOPD: 11/01/23, 08/21/23, 07/27/23, 01/11/23, 05/11/22
Last seen in our office in Aug but has not been FU consistently
Supplemental oxygen as needed-will need to assess discharge supplemental oxygen needs --> PT has rec'd skilled rehab upon discharge
BiPAP if needed-currently not requiring
Continue with Spiriva and Symbicort 160mcg --> rinse mouth after use to avoid thrush
Albuterol nebulizers 4 times daily
Mucolytic's-Mucinex 600 twice daily-will consider increasing if secretions remain tenacious
s/p Decadron 4 mg IV q12hr --> transitioned to PO prednisone on 01/21 starting with 40 mg and reduce by 10 mg every fourth day until off.
Incentive spirometry
Acapella
Consider vest if difficulties mobilizing secretions
Consider chest physiotherapy if difficulties mobilizing secretions
Cultures reviewed-only a urine Cx obtained --> check sputum culture if patient can provide a reliable sample, and check urine Legionella and strep pneumonia. urine antigens
Empiric antibiotics if acute bacterial bronchitis or acute bacterial lower respiratory tree infection is suspected-doxycycline started on 01/17 --> re-check CXR in AM and pro-BNP, and CBC. If pt spikes fever then check blood Cx and broad Abx.
otherwise continue doxy for course of 5-7 days
Consider Procalcitonin level if unsure whether acute respiratory tract bacterial infection exists-caveat may be negative with atypical infections or aspiration and may be falsely elevated in setting of [place]
Continue with diuresis as tolerated - cardiology on board --> recs appreciated
Monitor renal function, weight, lower extremity edema and electrolytes
MRI back 01/20/2024 w/ Mild compression fracture of the L2 superior endplate, acute or subacute.
Minimal retropulsion but no secondary spinal canal stenosis.
Outpatient spine eval
Trend leukocytosis
Follow blood sugars with goal BG 140-180
Insulin supplementation as needed
Monitor renal function
Smoking cessation counseling provided
DVT prophylaxis recommended: HSQ 5000 q12hr --> would raise to 5000 q8hr unless pt at risk for bleeding
GI prophylaxis recommended if on steroids for prolonged period
Early nutrition
Early mobilization
Outpatient pulmonary [id number]-[id number] locally or down in [place]-has seen Dr. Roque locally- Last seen 08/29/2023 - Will arrange for follow-up visit s/p discharge.
This encounter requires a high level of medical decision making considering I reviewed prior documentation from her recent ER visit on 01/14/2024, reviewed her two-view chest x-ray from 01/18/2024, and pulmonary assessment requiring my independent
evaluation given her chronic illness with severe exacerbation which poses a threat to life/bodily function.
Diagnostic data:
��
CXR 06/25/22: mild cardiomeg suggestive of elevated pulm venous pressures, no acute evidence of PNA, suspect mild symmetric subpleural inflammatory interstitial pneumonitis.�������
CXR 05/04/22: cardiomegaly with prominent vascularity suggesting CHF�������
CXR 01/02/23- No focal interstitial or airspace opacity.�����
Chest x-ray 10/28/2023-NAD
Chest x-ray 01/18/2024-pulmonary vascularity at top normal
CT abdomen and pelvis 01/14/2024-mild atelectasis at lung bases, small bullae left lung base without pneumothorax, no evidence for intestinal obstruction
US LLE 11/09/19: no evidence of DVT.
ECHO 01/03/23- Low-normal LV function, EF 50%. no significant valvular disease.
Echocardiogram 08/18/2023-EF 50-55%, mild aortic regurgitation
[place] 06/01/22: FVC 1.63/77%, FEV1 0.98/62%, ratio 60%, no significant BD response. Moderate obstruction and suggestive of mild restrictive pattern..
PFTs 07/02/22: FEV1 1.25L 54%, FVC 2.09L 68%, ratio 60. Post FEV1 1.32L 57%. No significant bronchodilator response. TLC 4.34L 84%, DLCO 50% (moderate obstruction, normal volumes, moderate diffusion impairment)�������
Subjective Data
-
Date of Service:
Date of Service: January 23, 2024
Chief Complaint: Pulmonary Follow Up and Dyspnea Follow Up
Subjective:
Patient seen and evaluated at bedside. Currently on 4 L/min and shortness of breath is better. Daughter also is at bedside and she agrees that the patient is looking much better today. Patient's main complaint is right-sided back pain due to
spasms. She still feels short of breath with exertion. Denies chest pain, headache, abdominal pain, fevers or chills.
Review of Systems
General: Other (Negative unless mentioned above)
Objective Data
Data Reviewed
Vital Signs / I&O / Oxygen:
Vital Signs
Temp Pulse Resp BP Pulse Ox
97.4 F 68 18 116/74 94
01/23/24 07:25 01/23/24 07:55 01/23/24 07:55 01/23/24 09:30 01/23/24 09:57
Intake and Output
01/22/24 01/23/24 01/24/24
06:59 06:59 06:59
Intake Total 600 / 600
Output Total 2049 / 2049
Balance -1450 / -1450
SaO2 94
Nasal Cannula flow liters per 4
minute
Physical Exam
General: Respiratory Distress (n), Comfortable and Other (NAD)
HEENT: Normocephalic, Anicteric and Moist Mucous Membranes
Cardiovascular: S1-S2 and Peripheral Edema (negative)
Respiratory: Clear, Wheeze (faint, heard in b/l upper lobes in posterior lung mejia and in anterior lung mejia), Crackles (LLL (faint)), Non-Labored Respirations, Accessory Resp Muscle Use (n) and Stridor (n)
GI: Soft, Non Distended, Non Tender and Other (Abdominal obesity)
Neurology: AO x 3 and No Motor Deficits
Skin: Warm, Good Color, Cyanosis (n) and Jaundice
Labs/Micro/Reports
Lab Data
01/19/24 06:05
01/23/24 08:25
Microbiology
01/18/24 23:10 Urine Urine Culture - Final
--- NOTE | 2024-01-23 09:01 | W.PN.CD ---
Today's Communication / Plan
-
Transition to lasix 40 mg daily tomorrow
We will sign off please call back with questions/concerns.
Impression / Plan
-
�73-year-old female with oxygen dependent COPD, ongoing tobacco use, heart failure with preserved EF and back pain who presented with increased shortness of breath and back pain over the last several days. She has ongoing back pain, but breathing
has improved.
HFpEF, [id number]:
-Initially felt to have a component of acute on chronic heart failure on admission along with COPD exacerbation.
-Transition to PO lasix tomorrow
-Monitor weights and renal function.
-ECHO 08/18/23: LVEF 55-60%, Mild AI
-will get benefit from SGLT2 inhibitors - coffe[employer] for affordability.
COPD exacerbation:
-continues to have poor air movement b/l with wheezing
-Additional management as per pulmonary and primary team
-Patient currently on steroids and nebs.
CKD. Monitor with diuresis
Back pain/right flank pain management directed by primary team.
Physical Exam
Vital Signs/Labs
Vital Signs
Temp Pulse Resp BP Pulse Ox
97.4 F 68 18 127/60 91
01/23/24 04:08 01/23/24 07:55 01/23/24 07:55 01/23/24 04:08 01/23/24 07:55
01/22/24 01/23/24 01/24/24
06:59 06:59 06:59
Actual Weight 245 lb
01/19/24 06:05
01/18/24
20:34
[id number] Pept 582
Physical Exam
Constitutional: No acute distress
Cardiovascular: Rhythm & rate is regular and Pedal edema is absent
Respiratory: Other (Poor air movement bilaterally with wheezing)
GI: Soft
Neuro/Psych: AO x 3
Data Reviewed
-
Date of Service: January 23, 2024
EKG: Tracing Personally Visualized and interpreted
Echo: Report Reviewed by me
Labs: Labs Reviewed by me
[2024-01-23 09:15] LABS: Blood Urea Nitrogen 53 mg/dl (7-17); Calcium 9.7 mg/dl (8.4-10.2); Carbon Dioxide 37 mmol/L (22-30); Chloride 96 mmol/L (98-107); Estimated Creatinine Clearance 36 ml/min; Glucose 82 mg/dl (70-99); Potassium 4.1 mmol/L (3.5-5.1); Sodium 136 mmol/L (135-145); eGFR 29.38
[2024-01-23] MEDS: NICODERM TRANSDERMAL 7 MG TRANSDERM (09:29)
[2024-01-23] MEDS: LIDOCAINE 4% PATCH 1 PATCH TOPICAL (09:29)
[2024-01-23] MEDS: LASIX 40 MG IV ×2 (09:30→17:01)
[2024-01-23] MEDS: HEPARIN 5000 UNITS SC ×2 (09:31→20:46)
[2024-01-23] MEDS: DELTASONE 40 MG PO (09:32)
[2024-01-23] MEDS: ZOLOFT 100 MG PO (09:32)
[2024-01-23] MEDS: VIBRAMYCIN 100 MG PO (09:32)
[2024-01-23] MEDS: CLARITIN 10 MG PO (09:32)
[2024-01-23] MEDS: SENOKOT-S 1 TABLET PO ×2 (09:32→20:40)
[2024-01-23] MEDS: MUCINEX 600 MG PO ×2 (09:32→20:40)
[2024-01-23] MEDS: SUDAFED 12 HOUR (EXTENDED RELEASE) 120 MG PO (09:32)
[2024-01-23] MEDS: WELLBUTRIN XL (24 hour extended release) 300 MG PO (09:33)
[2024-01-23] MEDS: DESENEX/MITRAZOL/ZEASORB 1 APPLIC TOPICAL ×2 (09:52→20:41)
--- NOTE | 2024-01-23 11:05 | W.PN.HOSP.TC ---
Today's Communication/Plan
-
po steroids
po diuretics
monitor mentation
Start dispo
Assessment / Plan
Assessment / Plan
# Acute COPD exacerbation
# Chronic COPD on 2 L baseline
-DuoNebs continued
-Steroids changed to oral prednisone slow taper regimen on dc.
-Completed Doxycycline course
-Continue long-acting inhalers
-Mucinex
-Pulmonary on board.
# Mild component of acute on chronic HFpEF exacerbation
-Chest x-ray cannot exclude mild acute pulmonary edema
-Check I's and O's, daily weight
-40 IV Lasix switched to po 40mg daily per cards
-Cardiology following
- Wt down to 244 lbs which is close to her baseline
# Severe lower back pain with some radiation today to left side of back and to back of left thigh.No foot weakness
#History of left-sided sciatic
#Distant history of lumbar fracture
MRI of the lumbar spine shows acute to subacute L2 fracture but no disc bulge or stenosis to account for her radiation to the back of the thigh.
-Tylenol, tramadol, lidocaine patch
-She had issues with TME from pain medication and Flexeril combination. Off of Flexeril. Restarted oxycodone so it will facilitate mobility and working with PT. Watch closely for any recurrence of TME-no confusion .
Obstructive sleep apnea
-Not on CPAP due to anxiety
History of kidney stones
Active smoker
-Nicotine patch. Counseled on cessation during my evaluations.
CKD 3A
-Renal function at baseline. Monitor closely with diuretics.
Anxiety/depression
-Continue Xanax
-Continue sertraline, bupropion
Obesity
Full code
DVT prophylaxis�heparin
PT/OT-SNF. CM aware. start dispo planning.
Anticipated Discharge: 24 - 48 hours
Subjective/Interval History
-
Date of Service: January 23, 2024
states breathing has significantly improved
wants rehab
Objective Data
-
Labs:
Laboratory Results
01/23/24
08:25
Sodium 136
Potassium 4.1
Chloride 96 L
Carbon Dioxide 37 H
BUN 53 H
Creatinine 1.8 H
Glucose 82
Calcium 9.7
Vital Signs:
Vital Signs
Temp Pulse Resp BP Pulse Ox
97.4 F 68 18 116/74 94
01/23/24 07:25 01/23/24 07:55 01/23/24 07:55 01/23/24 09:30 01/23/24 09:57
I&O
01/22/24 01/23/24 01/24/24
06:59 06:59 06:59
Intake Total 600 / 600
Output Total 2049
Balance -1450 / -1450
Physical Exam
-
General: No Apparent Distress and Morbidly Obese
HEENT: Moist Mucous Membranes
Respiratory: Clear to Auscultation, Rhonchi and Non Labored Respirations; Negative Accessory Resp Muscle Use
Cardiac: Regular Rhythm and S1/S2
Breast: Deferred by me
GI: Soft, Nontender, Nondistended and Normal Bowel Sounds
Neuro: Awake, Alert, Oriented, AO x 3 and No Motor Deficits
Psych: Calm; Negative Confused
Data Reviewed
-
Total Time Spent with Patient (in minutes): 55
[2024-01-23] MEDS: ROXICODONE 5 MG PO (11:14)
--- NOTE | 2024-01-23 11:48 | CM ---
Patient seen, provided patient with list of accepting SNFS. Patient requesting referral to [facility], sent in [facility]. Patient would like to call through [place] to discuss SNF's. Per nurse, patient off of med sitter. Per Hospitalist, patient
clear for discharge. CM will return to discuss chosen SNF. CM will continue to follow for discharge planning needs.
Plan; SNF pending accepting facility/facility chosen by patient.
[2024-01-24 03:40] VITALS: BP 119/59
[2024-01-24 06:00] VITALS: BMI 36.8
[2024-01-24] MEDS: VENTOLIN NEBULES 2.5 MG INH ×3 (07:40→15:30)
[2024-01-24] MEDS: SPIRIVA RESPIMAT 2.5 MCG 2 PUFF INH (07:40)
[2024-01-24] MEDS: SYMBICORT 160/4.5 MCG INHALER 2 PUFF INH (07:40)
[2024-01-24 07:43] LABS: % Basophils 0.3 % (0-2); % Eosinophils 0.8 % (0-6); % Immature Granulocytes 3.5 % (0-0.5); % Lymphocytes 14.4 % (20.5-51.1); % Monocytes 6.8 % (1.7-9.3); % Neutrophils 74.2 % (42.2-75.2); Absolute Basophils 0.1 10^3/uL (0-0.2); Absolute Eosinophils 0.2 10^3/uL (0-0.7); Absolute Immature Granulocytes 0.7 10^3/uL (0-0.05); Absolute Lymphocytes 2.9 10^3/uL (1.2-3.4); Absolute Monocytes 1.4 10^3/uL (0.1-0.6); Absolute Neutrophils 14.8 10^3/uL (1.4-6.5); Hematocrit 41.4 % (37.0-47.0); Hemoglobin 13.6 g/dL (12.0-16.0); Mean Corp Hgb Conc. 32.9 g/dL (33.0-37.0); Mean Corpuscular Hgb 31.3 pg (27.0-31.0); Mean Corpuscular Volume 95.2 fL (81.0-99.0); Mean Platelet Volume 9.6 fL (7.4-10.4); Nucleated Red Blood Cells % 0.1 %; Platelet Count 326 10^3/uL (130-400); Red Blood Cell Count 4.35 10^6/uL (4.20-5.40); Red Cell Dist. Width 12.5 % (11.5-14.5)
[2024-01-24 07:53] LABS: NT-proBNP 230 pg/ml
[2024-01-24 07:55] VITALS: BP 124/52
[2024-01-24 08:06] LABS: Blood Urea Nitrogen 61 mg/dl (7-17); Calcium 9.6 mg/dl (8.4-10.2); Carbon Dioxide 36 mmol/L (22-30); Chloride 94 mmol/L (98-107); Estimated Creatinine Clearance 43 ml/min; Glucose 91 mg/dl (70-99); Magnesium 2.7 mg/dl (1.6-2.3); Phosphorus 4.5 mg/dl (2.5-4.5); Potassium 4.2 mmol/L (3.5-5.1); Sodium 138 mmol/L (135-145); eGFR 36.57
--- NOTE | 2024-01-24 08:50 | W.PN.PUL3 ---
Today's Communication / Plan
-
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
Resume Breztri upon discharge
Maintain SpO2 >88% but keep SpO2 <95%
Diuresis per cardiology
Outpatient pulmonary FU recommended with Dr. Roque - last office visit on 08/29/2023 - Will arrange for outpatient follow-up and we will obtain full PFTs and 6MWT at that office appt.
Patient be prepared for discharge to skilled rehab this afternoon. Pulmonary service will now sign off. Reconsult if there are any additional questions/concerns, or if respiratory status deteriorates.
Assessment
-
73-year-old female patient with a history of underlying COPD on 2 L of oxygen followed by Dr. Roque, obstructive sleep apnea CPAP intolerant who is an active smoker with chronic heart failure preserved EF and renal insufficiency presented with
increasing shortness of breath and persistent lower back pain-pulmonary consulted for COPD exacerbation 01/19/2024.
COPD with acute exacerbation
Shortness of breath secondary to above with suspected acute HFpEF exacerbation
Obesity (BMI: 37)
Leukocytosis
[place]
Hyperglycemia
Conditions present prior to admission:
Repetitive hospitalizations for COPD exacerbation-December, April, July, August, September 2023
Syncope admission August 2020-found minimally responsive, septic shock, left lower extremity fasciitis requiring mechanical ventilation, extensive surgical debridement and wound VAC for 10 months
COPD oxygen dependent 2 L.
Active smoker.
Covid illness September 2023
Obstructive sleep apnea/CPAP intolerant.
Chronic heart failure preserved EF.
Chronic kidney disease stage III.
Anxiety/depression.
Obesity.
Sciatica.
Prior lumbar fracture.
Left lower extremity fasciitis.
Hyponatremia.
Renal calculi.
Cataract. Carpal tunnel release. Cholecystectomy 1975. Shoulder surgery 1992.
Plan
Respiratory status continues to improve - of note, she is chronically SOB
Last admission in Oct 2023
She has been admitted for AECOPD: 11/01/23, 08/21/23, 07/27/23, 01/11/23, 05/11/22
Last seen in our office in Aug but has not been FU consistently
Supplemental oxygen as needed-will need to assess discharge supplemental oxygen needs --> PT has rec'd skilled rehab upon discharge and she is going to be DC'd there this afternoon.
She has a portable oxygen concentrator at home
Outpatient follow up with our office will be arranged for 6MWT
BiPAP if needed-currently not requiring
Continue with Spiriva and Symbicort 160mcg --> rinse mouth after use to avoid thrush
Nebulized albuterol QID with prn DuoNebs q4hr
Mucolytics --> continue Mucinex 600 twice daily- no need to increase dose at this time given her secretions have improved and are stable
s/p Decadron 4 mg IV q12hr --> transitioned to PO prednisone on 01/21 starting with 40 mg --> reduce by 10 mg every fourth day until back at home dose of 20mg daily
Incentive spirometry
Acapella
Consider chest physiotherapy if difficulties mobilizing secretions
Cultures reviewed-only a urine Cx obtained --> sputum culture obtained on 01/22 --> follow up; urine antigen of both Legionella and strep pneumonia are negative
Empiric antibiotics if acute bacterial bronchitis or acute bacterial lower respiratory tree infection is suspected-doxycycline started on 01/17 --> CXR this AM shows improvement in degree of pulmonary vascular congestion c/t CXR from 01/18/2024. Also
pro-BNP has improved. If pt spikes fever then check blood Cx and start broad Abx. Otherwise continue to monitor as she recieved 6 days of doxy (4 of which were IV doxy).
Consider Procalcitonin level if unsure whether acute respiratory tract bacterial infection exists-caveat may be negative with atypical infections or aspiration and may be falsely elevated in setting of [place]
Continue with diuresis as tolerated - cardiology on board --> recs appreciated
Monitor renal function, weight, lower extremity edema and electrolytes
MRI back 01/20/2024 w/ Mild compression fracture of the L2 superior endplate, acute or subacute.
Minimal retropulsion but no secondary spinal canal stenosis.
Outpatient spine eval
Trend leukocytosis
Follow blood sugars with goal BG 140-180
Insulin supplementation as needed
Monitor renal function
Smoking cessation counseling provided
DVT prophylaxis recommended: HSQ 5000 q12hr --> would raise to 5000 q8hr unless pt at risk for bleeding
GI prophylaxis recommended if on steroids for prolonged period
Early nutrition
Early mobilization
Outpatient pulmonary [id number] locally or down in [place]-has seen Dr. Roque locally- Last seen 08/29/2023 - Will arrange for follow-up visit s/p discharge.
Patient be prepared for discharge to skilled rehab this afternoon. Pulmonary service will now sign off. Thank you for allowing us to be involved in the care of this patient. Reconsult if there are any additional questions/concerns, or if
respiratory status deteriorates.
This encounter requires a moderate level of medical decision making considering I reviewed prior documentation from her recent ER visit on 01/14/2024, reviewed her two-view chest x-ray from 01/18/2024, and pulmonary assessment requiring my independent
evaluation given her chronic illness with severe exacerbation which poses a threat to life/bodily function.
Diagnostic data:
��
CXR 06/25/22: mild cardiomeg suggestive of elevated pulm venous pressures, no acute evidence of PNA, suspect mild symmetric subpleural inflammatory interstitial pneumonitis.�������
CXR 05/04/22: cardiomegaly with prominent vascularity suggesting CHF�������
CXR 01/02/23- No focal interstitial or airspace opacity.�����
Chest x-ray 10/28/2023-NAD
Chest x-ray 01/18/2024-pulmonary vascularity at top normal
Chest x-ray 01/24/2024- Chronic obstructive pulmonary disease; No superimposed acute abnormalities
CT abdomen and pelvis 01/14/2024-mild atelectasis at lung bases, small bullae left lung base without pneumothorax, no evidence for intestinal obstruction
US LLE 11/09/19: no evidence of DVT.
ECHO 01/03/23- Low-normal LV function, EF 50%. no significant valvular disease.
Echocardiogram 08/18/2023-EF 50-55%, mild aortic regurgitation
[place] 06/01/22: FVC 1.63/77%, FEV1 0.98/62%, ratio 60%, no significant BD response. Moderate obstruction and suggestive of mild restrictive pattern..
PFTs 07/02/22: FEV1 1.25L 54%, FVC 2.09L 68%, ratio 60. Post FEV1 1.32L 57%. No significant bronchodilator response. TLC 4.34L 84%, DLCO 50% (moderate obstruction, normal volumes, moderate diffusion impairment)�������
Subjective Data
-
Date of Service:
Date of Service: January 24, 2024
Chief Complaint: Pulmonary Follow Up and Dyspnea Follow Up
Subjective:
Patient seen this morning. She is currently on 2 L/min and she feels like her breathing is better today. Of note, she has a portable oxygen concentrator at home. She is awaiting discharge to rehab later this afternoon. No acute events reported
from overnight. She still endorses spasms in the right side of her back, but it is not worsening and she denies chest pain, abdominal pain, fevers or chills.
Review of Systems
General: Other (Negative unless mentioned above)
Objective Data
Data Reviewed
Vital Signs / I&O / Oxygen:
Vital Signs
Temp Pulse Resp BP Pulse Ox
97.3 F 66 22 124/52 94
01/24/24 07:55 01/24/24 07:55 01/24/24 07:55 01/24/24 07:55 01/24/24 07:55
Intake and Output
01/23/24 01/24/24 01/25/24
06:59 06:59 06:59
Intake Total 600 / 600 1280 / 1280
Output Total 2049 / 2049 1200 / 1200
Balance -1450 / -1450 80 / 80
SaO2 94
Nasal Cannula flow liters per 2
minute
Physical Exam
General: Respiratory Distress (n), Comfortable and Other (NAD)
HEENT: Normocephalic, Anicteric and Moist Mucous Membranes
Cardiovascular: S1-S2, Peripheral Edema (negative) and Other (Distant heart sounds)
Respiratory: Clear, Wheeze (negative), Crackles (negative), Rhonchi (negative), Non-Labored Respirations, Accessory Resp Muscle Use (n), Stridor (n) and Other (Reduced breath sounds bilaterally)
GI: Soft, Non Distended, Non Tender and Other (Abdominal obesity)
Neurology: AO x 3 and No Motor Deficits
Skin: Warm, Good Color, Cyanosis (n) and Jaundice
Labs/Micro/Reports
Lab Data
01/24/24 07:08
01/24/24 07:08
Microbiology
01/23/24 17:23 Urine Legionella Urinary Antigen - Final
Negative for Legionella pneumophila Serogroup 1 antigen.
A negative result does not rule out the possiblity of
Legionella infection due to other serogroups or species of
Legionella. Clinical correlation is recommended.
01/23/24 17:23 Urine Streptococcus pneumoniae Antigen (M - Final
Negative for Streptococcus pneumoniae antigen.
A negative result does not exclude infection with
Streptococcus pneumoniae. Clinical correlation is
recommended.
[2024-01-24] MEDS: LIDOCAINE 4% PATCH 1 PATCH TOPICAL (10:02)
[2024-01-24] MEDS: LASIX 40 MG PO (10:03)
[2024-01-24] MEDS: CLARITIN 10 MG PO (10:04)
[2024-01-24] MEDS: SENOKOT-S 1 TABLET PO (10:04)
[2024-01-24] MEDS: DELTASONE 40 MG PO (10:04)
[2024-01-24] MEDS: SUDAFED 12 HOUR (EXTENDED RELEASE) 120 MG PO (10:04)
[2024-01-24] MEDS: NICODERM TRANSDERMAL 7 MG TRANSDERM (10:04)
[2024-01-24] MEDS: ZOLOFT 100 MG PO (10:04)
[2024-01-24] MEDS: WELLBUTRIN XL (24 hour extended release) 300 MG PO (10:04)
[2024-01-24] MEDS: HEPARIN 5000 UNITS SC (10:05)
[2024-01-24] MEDS: DESENEX/MITRAZOL/ZEASORB 1 APPLIC TOPICAL (10:10)
--- NOTE | 2024-01-24 10:31 | W.PN.HOSP.TC ---
Addendum entered and electronically signed by John Mckeon MD 01/25/24 14:12:
CKD3b only
Original Note:
Today's Communication/Plan
-
DC to SNF
steroid taper
po diuretics
Assessment / Plan
Assessment / Plan
# Acute COPD exacerbation
# Chronic COPD on 2 L baseline
# Acute on chronic hypoxic respiratory insufficiency
-DuoNebs continued
-Steroids changed to oral prednisone slow taper regimen on dc. 40mg to 20mg (chronic dose 20mg till OP pulm eval)
-Completed Doxycycline 5d course
-Continue long-acting inhalers
-Mucinex
-CXR with COPD.
-Back to 2 L oxygen
-Pulmonary on board.
# Mild component of acute on chronic HFpEF exacerbation
-Chest x-ray on 01/23 without any pulm edema.
-Check I's and O's, daily weight
-40 IV Lasix switched to po 40mg daily per cards
-Cardiology following
- Wt trended down.
#Leukocytosis likely 2/2 steroids
-afebrile.
-no urinary symptoms. Ucx wtih contamination.
-Urine legionella and strep antigen negative.
-complete doxy 5d course.
-monitor for now.
# Severe lower back pain with some radiation today to left side of back and to back of left thigh.No foot weakness
#History of left-sided sciatic
#Distant history of lumbar fracture
MRI of the lumbar spine shows acute to subacute L2 fracture but no disc bulge or stenosis to account for her radiation to the back of the thigh.
-Tylenol, tramadol, lidocaine patch
-She had issues with TME from pain medication and Flexeril combination. Off of Flexeril. Restarted oxycodone so it will facilitate mobility and working with PT. Watch closely for any recurrence of TME-no confusion .
Obstructive sleep apnea
-Not on CPAP due to anxiety
History of kidney stones
Active smoker
-Nicotine patch. Counseled on cessation during my evaluations.
[place] on CKD 3A
- Monitor closely with diuretics.
Anxiety/depression
-Continue Xanax
-Continue sertraline, bupropion
Obesity
Full code
DVT prophylaxis�heparin
PT/OT-SNF. CM aware.
More than 30 minutes spent in discharge including
Final examination of the patient
Summarizing hospital stay
Instructions for continuing care to all relevant caregivers
Preparation of discharge records, prescriptions, and referral forms
Total time spent (in minutes): 40
Anticipated Discharge: Today
Subjective/Interval History
-
Date of Service: January 24, 2024
states breathing has improved.
Objective Data
-
Labs:
Laboratory Results
01/24/24
07:08
WBC 20.0 H
Hgb 13.6
Hct 41.4
Plt Count 326
Sodium 138
Potassium 4.2
Chloride 94 L
Carbon Dioxide 36 H
BUN 61 H
Creatinine 1.5 H
Glucose 91
Calcium 9.6
Vital Signs:
Vital Signs
Temp Pulse Resp BP Pulse Ox
97.3 F 66 22 124/52 94
01/24/24 07:55 01/24/24 07:55 01/24/24 07:55 01/24/24 07:55 01/24/24 07:55
I&O
01/23/24 01/24/24 01/25/24
06:59 06:59 06:59
Intake Total 600 / 600 1280 / 1280
Output Total 2049 1200 / 1200
Balance -1450 / -1450 80 / 80
Physical Exam
-
General: No Apparent Distress and Morbidly Obese
HEENT: Moist Mucous Membranes and Oxygen
Respiratory: Clear to Auscultation and Non Labored Respirations; Negative Accessory Resp Muscle Use
Cardiac: Regular Rhythm and S1/S2
Breast: Deferred by me
GI: Soft, Nontender, Nondistended and Normal Bowel Sounds
Neuro: Awake, Alert, Oriented, AO x 3 and No Motor Deficits
Psych: Calm; Negative Confused
--- NOTE | 2024-01-24 10:51 | W.DCSUMMARY ---
Discharge Summary
Discharge Data
Date of Admission: 01/18/24
Date of Discharge: 01/24/24
-
Pending Results: No
Hospital Course
73 female past medical history of COPD, chronic hypoxic respiratory insufficiency, chronic HFrEF, chronic back pain, obstructive sleep apnea, tobacco abuse, CKD, anxiety, depression, morbid obesity due to excess calories, who is presenting from home
with shortness of breath. Patient was found to acute hypoxic respiratory insufficiency. Required 4 L of oxygen. Patient was started on IV steroids. Pulmonary was consulted. Patient completed course of doxycycline. Patient was also complaining
of severe back pain which showed subacute L2 fracture. Patient had issues with toxic metabolic encephalopathy with from pain medication and Flexeril combination it was discontinued. Patient also found to be in heart failure exacerbation and was
evaluated by cardiology. IV Lasix was started. Once patient was euvolemic IV Lasix with transition to home regimen 40 mg p.o. daily. Prednisone will be started on 40 mg with slow taper regimen until 20 mg which is patient baseline home dose.
Patient will need to follow-up with pulmonary as outpatient for further assessment of prednisone dose. Patient oxygen level was started. 2 L. Patient was advised PT and OT will be discharged to SNF.
Discharge Plan
-
Patient Disposition: Care Home/SNF
Discharge Diagnosis/Procedures: Acute COPD exacerbation
Acute on chronic hypoxic respiratory insufficiency
Acute on chronic heart failure exacerbation
Severe low back pain
Acute kidney injury on chronic kidney disease
acute to subacute L2 fracture
Condition: Fair
Diet: 2 Gram Sodium and Restrict fluids to 48 oz
Activity: With assistance and As tolerated
Driving Restrictions: As prior to admission
Blood Work: cbc and bmp in 1 week with primary doctor.
Activity Restrictions/Additional Instructions:
Take Prednisone [id number] then 95avw6t then continue 20mg till pulm eval in office.
Instructions: *PCP/Other Tick Eradicator Heart Failure Instructions
Referrals:
Wendy Sher, DO [Active] - in one to two weeks (or [employer])
Ant Diaz DO [Family Provider] - in less than 1 week
Emily Desai MD [Active] - None (call to make appt. )
Prescriptions:
New
lidocaine 4 % Adhesive Patch,Medicated
1 patch topical DAILY Qty: 15 0RF
Rx Instructions:
lower back
prednisone 10 mg Tablet
10 mg PO DIRECTED Qty: 30 0RF
Rx Instructions:
Take 15bhm0y then [id number] then continue 20mg till pulm eval in office.
Continued
Claritin-D 12 Hour 5-120 mg Tablet Extended Release 12 Hr
1 tab PO DAILY
albuterol sulfate 90 mcg/actuation HFA aerosol inhaler
2 puff INHALATION R Q4HPRN PRN (Reason: sob/wheezing)
sertraline 25 mg tablet
100 mg PO DAILY
bupropion HCl 300 mg tablet extended release 24 hr
300 mg PO DAILY
furosemide 40 mg Tablet
40 mg PO DAILY Qty: 30 0RF
acetaminophen [Tylenol] 325 mg Tablet
650 mg PO Q6H PRN (Reason: mild pain)
ipratropium-albuterol 0.5 mg-3 mg(2.5 mg base)/3 mL Solution For Nebulization
3 ml INHALATION R QID
Patient Comments:
10/28/2023, patient states that they alternate this medication with their albuterol sulfate 0.083% solution for nebulization BID.
albuterol sulfate 2.5 mg /3 mL (0.083 %) Solution For Nebulization
2.5 mg INHALATION R QID
Patient Comments:
10/28/2023, patient states that they alternate this medication with their Ipratropium Albuterol 0.5mg/3mg BID.
guaifenesin [Mucus Relief ER] 600 MG tablet extended release 12hr
600 mg PO BID
Breztri Aerosphere 160-9-4.8 mcg/actuation HFA aerosol inhaler
2 inh INHALATION R BID
Held
prednisone 20 mg tablet
20 mg PO DAILY
Hold Instructions: Resume on 02/02/24. Restart after completion of prednisone taper
Discharge Orders:
Discharge Patient (As Directed); Ordered 01/24/24
Ordered By: John Mckeon
[2024-01-24] MEDS: ROXICODONE 5 MG PO (10:58)
[2024-01-24] MEDS: MUCINEX 600 MG PO (11:03)
[2024-01-24 11:20] VITALS: PULSE 97; O2SAT 93
--- NOTE | 2024-01-24 11:39 | CM ---
Patient seen, discussed [facility] can accept patient for today. IMM reviewed, signed, placed in patients chart. Patient reports her daughter will provide transportation, around 2-3:00 p.m. CM sent update to Elvi at [facility]. CM will continue to
follow for discharge planning needs.
Plan; [facility] SNF, daughter to provide transportation.
Report: [phone]
[2024-01-24 11:55] VITALS: BP 145/80
--- NOTE | 2024-01-24 14:57 | PN.CDI ---
CDI
- -
CDI:
Physician Documentation Request
Admit Date: 01/18/24 22:04
Dear Doctor Mike,
Please review the following and provide your response in the progress notes.
Diagnosis:
The diagnosis of [place] is documented in the record.
There is either a lack of clinical support for this condition in the current medical record, or there is a lack of recognized standard criteria to support the condition.
Clinical indicators:
- Progress notes '[place] on CKD 3A'
Laboratory Tests
01/18/24 01/19/24 01/20/24
15:26 06:05 06:58
Creatinine 1.5 H 1.7 H 1.6 H
eGFR 36.57 31.47 33.84
01/22/24 01/23/24 01/24/24
06:35 08:25 07:08
Creatinine 1.7 H 1.8 H 1.5 H
eGFR 31.47 29.38 36.57
The request is for one of the following:
[place] remains a known or suspected condition for this patient and is further supported by
[place] has been ruled out, CKD 3b only
Other (please specify)
Criteria for [place]*
1 Increase in serum creatinine by > or = to 0.3 mg/dL (> or = to 26.5 micromol/L) within 48 hours, OR
2 Increase in serum creatinine to > or = to 1.5 times baseline, which is known or presumed to have occurred within 7 days, OR
3 Urine volume < 0.5 nL/kg/hour for six hours
Stages of Chronic Kidney Disease*
Level Description GFR
G1 Normal or High >90
G2 Mildly decreased 60-89
G3a Mildly to moderately decreased 45-59
G3b Moderately to severely decreased 30-44
G4 Severely decreased 15-29
G5 Kidney failure <15
Use of terms such as suspected, likely, concern for, or probable (associated with a specific diagnosis that is being evaluated, monitored, or treated as if it exists) are acceptable and can be coded in the inpatient setting, when documented at the
time of discharge.
Thank you,
Roxie Up RN
CDI Specialist
Please use your independent medical judgment in providing your response.
[2024-01-24 15:30] VITALS: BP 109/60
== END 2024-01-24 17:32 | DRG 190 ==
LOC: 4 EAST ACU 22:04
PROVIDERS: Emergency Medicine; Internal Medicine Critical Care Medicine; Nurse Practitioner; ADMITTING PHYSICIAN Hospitalist; ATTENDING PHYSICIAN Hospitalist; CONSULT PHYSICIAN Internal Medicine Cardiovascular Disease; CONSULT PHYSICIAN Internal Medicine Critical Care Medicine; EMERGENCY PHYSICIAN Emergency Medicine; FAMILY PHYSICIAN Family Medicine
DX: J44.1 Chronic obstructive pulmonary disease with (acute) exacerbation (principal); G92.8 Other toxic encephalopathy; I50.43 Acute on chronic combined systolic (congestive) and diastolic (congestive) heart failure; S32.020A Wedge compression fracture of second lumbar vertebra, initial encounter for closed fracture; E87.1 Hypo-osmolality and hyponatremia; J96.11 Chronic respiratory failure with hypoxia; N17.9 Acute kidney failure, unspecified; N20.0 Calculus of kidney; F17.210 Nicotine dependence, cigarettes, uncomplicated; M62.838 Other muscle spasm; G47.33 Obstructive sleep apnea (adult) (pediatric); N18.31 Chronic kidney disease, stage 3a; F32.A Depression, unspecified; F41.9 Anxiety disorder, unspecified; E66.01 Morbid (severe) obesity due to excess calories; Z68.36 Body mass index [BMI] 36.0-36.9, adult; Z68.37 Body mass index [BMI] 37.0-37.9, adult
CPT/HCPCS: 71046; 72148; 80048; 80053; 81003; 81015; 83690; 83735; 83880; 84100; 85025; 87070; 87086; 87205; 87449; 87899; 93005; 94640; 96365; 96375; 97116; 97162; 99285

== ENCOUNTER → 2024-01-31 09:52 | Outpatient (REF) | payer MEDICARE, SELFPAY ==
[2024-01-31 13:37] LABS: % Basophils 0.2 % (0-2); % Eosinophils 1.3 % (0-6); % Immature Granulocytes 2.7 % (0-0.5); % Lymphocytes 16.9 % (20.5-51.1); % Monocytes 7.1 % (1.7-9.3); % Neutrophils 71.8 % (42.2-75.2); Absolute Eosinophils 0.2 10^3/uL (0-0.7); Absolute Immature Granulocytes 0.5 10^3/uL (0-0.05); Absolute Monocytes 1.3 10^3/uL (0.1-0.6); Absolute Neutrophils 12.8 10^3/uL (1.4-6.5); Blood Urea Nitrogen 39 mg/dl (7-17); Calcium 8.6 mg/dl (8.4-10.2); Carbon Dioxide 27 mmol/L (22-30); Chloride 101 mmol/L (98-107); Glucose 100 mg/dl (70-99); Hematocrit 36.6 % (37.0-47.0); Hemoglobin 11.8 g/dL (12.0-16.0); Mean Corp Hgb Conc. 32.2 g/dL (33.0-37.0); Mean Corpuscular Volume 96.1 fL (81.0-99.0); Mean Platelet Volume 9.8 fL (7.4-10.4); Nucleated Red Blood Cells % 0 %; Platelet Count 291 10^3/uL (130-400); Potassium 4.5 mmol/L (3.5-5.1); Red Blood Cell Count 3.81 10^6/uL (4.20-5.40); Red Cell Dist. Width 13.2 % (11.5-14.5); Sodium 134 mmol/L (135-145); White Blood Cell Count 17.8 10^3/uL (4.8-10.8); eGFR 31.47
[2024-01-31 13:44] LABS: NT-proBNP 280 pg/ml
== END ==
LOC: OLABP 09:52
PROVIDERS: ATTENDING PHYSICIAN Student in an Organized Health Care Education/Training Program
DX: M62.81 Muscle weakness (generalized) (principal); I13.0 Hypertensive heart and chronic kidney disease with heart failure and stage 1 through stage 4 chronic kidney disease, or unspecified chronic kidney disease; M54.30 Sciatica, unspecified side; F41.9 Anxiety disorder, unspecified
CPT/HCPCS: 36415; 80048; 83880; 85025

== ENCOUNTER 2024-02-19 22:07 | Inpatient (IN) | payer MEDICARE, SELFPAY ==
[2024-02-19 17:41] VITALS: BP 162/86
[2024-02-19] MEDS: DUONEB 3 ML INH (18:14)
[2024-02-19] MEDS: VENTOLIN NEBULES 7.5 MG INH (18:14)
--- NOTE | 2024-02-19 18:27 | ED.GENMED ---
History of Present Illness
General
Chief Complaint: Back Pain
Source: patient
Exam Limitations: none
Time Seen by Provider: 02/19/24 17:56
Travel History
Have you had any contact with someone who has COVID-19?: No
Do you have any symptoms of coronavirus? Fever > 100 degrees, chills, cough, shortness of breath, sore throat, loss of taste or smell, muscle aches, or headache?: No
History of Present Illness
History of Present Illness:
This is a 73 year old female that comes in with c/o SOB and back pain. States that the pain in her back has been so bad that she has been in bed for the past 2 days. States that when she was here before they found compression fractures of the low
back. States that they gave her Oxycodone but this is not helping. States that yesterday she started with wheezing and today she is worse. States that the VN was there on Tuesday and she was only wheezing a little. States that she has tightness in
her abd with nausea. States that she is very SOB and lightheaded. Denies any fever, chills, chest pain, vomiting, diarrhea, headache, urinary burning.
Past History
Past History
ED Past Medical History: CHF, COPD (2-3 liters NC), Psychiatric (Anxiety, Depression, ) and Other (Spinal stenosis, morbid obesity, Bilateral kidney stones, Ulcers)
ED Past Surgical History: Cholecystectomy, Orthopedic (Left shoulder reconstruction. ) and Other (Fasciotomy for fasciitis with wound VAC of lower back and thigh)
Social History
Tobacco: Former smoker
Alcohol: None
Drug: None
Personal:
Living: with family
Employment: Retired
Family History
Family History: Other (Noncontributory)
Review of Systems
Review of Systems
All Other Systems: ROS reviewed and negative except as documented in HPI and ROS
Constitutional: Reports no symptoms; Denies fever or chills
EENT: Reports no symptoms
Respiratory: Reports cough and trouble breathing
Cardiac: Reports no symptoms; Denies chest pain
ABD/GI: Reports abdominal pain (Tightness) and nausea; Denies vomiting or diarrhea
: Reports no symptoms; Denies dysuria, frequency or urgency
Musculoskeletal: Reports no symptoms
Skin: Reports no symptoms
Neurological: Reports other (Lightheaded); Denies dizzy or headache
Psychiatric: Reports no symptoms
Phy Exam
General Physical Exam
General Presentation: moderate distress
General age: appears stated age
General Skin: warm and dry
General Habitus: elderly
General Mental: alert
General Hydration: dry mucous membranes
ENT Exam
ENT Exam: TM's normal, pharynx normal and neck supple
Eye Exam
Eye Exam: EOMI
Cardiovascular Exam
Cardiovascular Exam: regular rate/rhythm, no edema and normal peripheral pulses
Pulmonary Exam
Pulmonary Exam: no rales, chest non tender, no crackles, no rhonchi and generalized wheezing (Insp and exp wheezing. Audible,)
Gastrointestinal Exam
Gastrointestinal Exam: normal bowel sounds, non tender, soft, no organomegaly, no pulsatile mass, non distended and other (Obese)
Musculoskeletal Exam
Musculoskeletal Exam: full ROM and no edema
Skin Exam
Skin Exam: normal color, warm/dry, no rash and no petechia
Psychiatric Exam
Psychiatric Exam: normal mood/affect
Course
Orders/Labs/Results
Orders:
Orders
02/19/24 18:04
EKG [Electrocardiogram (*1)] Urgent
Reason for Study: Shortness of Breath
02/19/24 18:05
EKG- Treatment ONCE
02/19/24 18:06
IV Insert/Care/Rem.- Treatment PRN
Albuterol Sulfate [Ventolin Nebules] 7.5 mg INH R NOW STA
Dexamethasone Sod Phosphate [Decadron] 20 mg IV NOW STA
Ipratropium/Albuterol Sulfate [Duoneb] 3 ml INH R NOW STA
02/19/24 18:34
Basic Metabolic Panel Urgent
Complete Blood Count/With Diff Urgent
02/19/24 19:55
CR Chest - 2 Views Urgent
Comment:
Reason For Exam: SOB
02/19/24 20:34
Acetaminophen [Tylenol] 1,000 mg PO NOW STA
Ketorolac [Toradol] 30 mg IV NOW STA
Oxycodone [Roxicodone] 5 mg PO NOW STA
Abnormal Lab Results
02/19/24
18:34
WBC 14.0 H 10^3/uL
(4.8-10.8)
Abs Immat Gran (auto) 0.3 H 10^3/uL
(0-0.05)
Absolute Neuts (auto) 11.9 H 10^3/uL
(1.4-6.5)
Absolute Lymphs (auto) 0.5 L 10^3/uL
(1.2-3.4)
Absolute Monos (auto) 1.1 H 10^3/uL
(0.1-0.6)
Immature Gran % 2.1 H %
(0-0.5)
Neutrophils % 84.9 H %
(42.2-75.2)
Lymphocytes % 3.3 L %
(20.5-51.1)
Sodium 132 L mmol/L
(135-145)
Chloride 97 L mmol/L
(98-107)
BUN 22 H mg/dl
(7-17)
Creatinine 1.4 H mg/dL
(0.6-1.0)
Glucose 114 H mg/dl
(70-99)
02/19/24 18:34
02/19/24 18:34
Leuocytosis, Sodium slightly low. Dehydration. Chronic renal insufficiency, Glucose nonfasting.
Vital Signs
Initial and Last Documented VS:
Initial Vital Signs
Temp Pulse Resp BP Pulse Ox
98.7 F 111 20 162/86 87
02/19/24 17:41 02/19/24 17:41 02/19/24 17:41 02/19/24 17:41 02/19/24 17:41
Last Documented Vital Signs
Temp Pulse Resp BP Pulse Ox
98.7 F 111 20 162/86 91
02/19/24 17:41 02/19/24 17:41 02/19/24 17:41 02/19/24 17:41 02/19/24 18:27
MDM/Problems Addressed
Differential Diagnosis Includes:
COPD exacerbation, Chronic low back pain,
MDM/Problems Addressed:
This is a 73 year old female that comes in with c/o wheezing and lo back pain. States that she has lo back pain and has been in bed for the past 2 days. States that she started with wheezing yesterday and today she is worse.
Rogelio check labs. Chest x-ray and give Hour long neb and steroids.
Chronic conditions affecting care: COPD
Acute Exacerbation and/or Progression of Chronic Illness: COPD and Other (Back pain)
*Radiology
Radiology exam reviewed: radiology read reviewed (Chest-No acute cardiopulmonary process. )
*Pulse Oximetry
Patient hypoxic: yes
*EKG
Interpreted by ED Provider?: Yes
Heart Rate: 105
Rate: tachycardiac
Rhythm: sinus and PAC's
[place]: normal axis
Interval: normal interval
QRS Pattern: normal QRS
Ischemia: no ischemia
*Laundry Operator Finishing Interpretation
Rate: tachycardiac
Heart Rate: 102
Rhythm: sinus tachycardia
*Critical Care Note
Total Time (30-74mins, 75-104mins- exclusive of procedures): Not Applicable
ED Attending Note
-
Portions of this chart may have been created with voice recognition software.� Occasional wrong word or��sound alike� substitutions may have occurred due to the inherent limitations of voice recognition software.
Discharge Plan
Departure
Patient Disposition: Admit
Date of Disposition: 02/19/24
Time of Disposition: 20:37
Admit to: Telemetry
Presentation/result/management discussed w/ accepting MD/DO: Hospitalist
Patient with high blood pressure during this ER visit?: Yes
Condition: Good
Covid-19: Not Applicable
Discharge Problem:
Acute exacerbation of chronic obstructive pulmonary disease (COPD), Low back pain
Prescriptions:
No Action
Claritin-D 12 Hour 5-120 mg Tablet Extended Release 12 Hr
1 tab PO DAILY
albuterol sulfate 90 mcg/actuation HFA aerosol inhaler
2 puff INHALATION R Q4HPRN PRN (Reason: sob/wheezing)
sertraline 25 mg tablet
100 mg PO DAILY
bupropion HCl 300 mg tablet extended release 24 hr
300 mg PO DAILY
furosemide 40 mg Tablet
40 mg PO DAILY Qty: 30 0RF
acetaminophen [Tylenol] 325 mg Tablet
650 mg PO Q6H PRN (Reason: mild pain)
ipratropium-albuterol 0.5 mg-3 mg(2.5 mg base)/3 mL Solution For Nebulization
3 ml INHALATION R QID
Patient Comments:
10/28/2023, patient states that they alternate this medication with their albuterol sulfate 0.083% solution for nebulization BID.
albuterol sulfate 2.5 mg /3 mL (0.083 %) Solution For Nebulization
2.5 mg INHALATION R QID
Patient Comments:
10/28/2023, patient states that they alternate this medication with their Ipratropium Albuterol 0.5mg/3mg BID.
guaifenesin [Mucus Relief ER] 600 MG tablet extended release 12hr
600 mg PO BID
prednisone 20 mg tablet
20 mg PO DAILY
Hold Instructions: Resume on 02/02/24. Restart after completion of prednisone taper
Lauraztri Aerosphere 160-9-4.8 mcg/actuation HFA aerosol inhaler
2 inh INHALATION R BID
lidocaine 4 % Adhesive Patch,Medicated
1 patch topical DAILY Qty: 15 0RF
Rx Instructions:
lower back
prednisone 10 mg Tablet
10 mg PO DIRECTED Qty: 30 0RF
Rx Instructions:
Take [id number] then [id number] then continue 20mg till pulm eval in office.
Referrals:
Ant Diaz DO [Family Provider] -
Interventions
Interventions:
*General Assessment Last Done: 02/19/24 17:41
ED- Fall Risk Assessment Last Done: 02/19/24 18:27
*ED COVID-19 Vaccine History Last Done: 02/19/24 17:41
ED-Musculoskeletal Assessment Last Done: 02/19/24 18:27
Discharge Date and Time
Print Language: FRISIAN
[2024-02-19 18:30] VITALS: BMI 38.8
[2024-02-19] MEDS: DECADRON 20 MG IV (18:32)
[2024-02-19 18:42] LABS: % Basophils 0.4 % (0-2); % Eosinophils 1.4 % (0-6); % Immature Granulocytes 2.1 % (0-0.5); % Lymphocytes 3.3 % (20.5-51.1); % Monocytes 7.9 % (1.7-9.3); % Neutrophils 84.9 % (42.2-75.2); Absolute Basophils 0.1 10^3/uL (0-0.2); Absolute Eosinophils 0.2 10^3/uL (0-0.7); Absolute Immature Granulocytes 0.3 10^3/uL (0-0.05); Absolute Lymphocytes 0.5 10^3/uL (1.2-3.4); Absolute Monocytes 1.1 10^3/uL (0.1-0.6); Absolute Neutrophils 11.9 10^3/uL (1.4-6.5); Hematocrit 39.2 % (37.0-47.0); Mean Corp Hgb Conc. 33.2 g/dL (33.0-37.0); Mean Corpuscular Hgb 30.8 pg (27.0-31.0); Mean Corpuscular Volume 92.9 fL (81.0-99.0); Mean Platelet Volume 9.4 fL (7.4-10.4); Nucleated Red Blood Cells % 0 %; Platelet Count 282 10^3/uL (130-400); Red Blood Cell Count 4.22 10^6/uL (4.20-5.40); Red Cell Dist. Width 12.9 % (11.5-14.5)
[2024-02-19 19:02] LABS: Blood Urea Nitrogen 22 mg/dl (7-17); Calcium 9.6 mg/dl (8.4-10.2); Carbon Dioxide 28 mmol/L (22-30); Chloride 97 mmol/L (98-107); Estimated Creatinine Clearance 48 ml/min; Glucose 114 mg/dl (70-99); Sodium 132 mmol/L (135-145); eGFR 39.73
--- NOTE | 2024-02-19 21:05 | HPS.HSE ---
Addendum entered and electronically signed by Kain Casiano MD 02/20/24 12:55:
Laboratory Tests
02/19/24
21:27
[id number] Pept [id number]
Original Note:
Family Physician
-
Family Physician: Ant Diaz
Chief Complaint
-
SoB, LBP
History of Present Illness
73F HX COPD, chronic hypoxic RI, Home O2 depedent, chronic HFrEF, chronic LBP , JUAN ANTONIO tobacco abuse, CKD3b seen at ER for evaluation of SoB LBP flare.
[facility] Current residing with daughter
SoB
Worsening over last 24Hrs
Acute on chronic on on Home O2
Acute onset of wheezy breathing since yesterday noted by VN
Associated Jazmin and Nausea
Productive Cough with increased r yellow Phlegm
No fever and chills
Chr home O2 2L use
No smoking for 5 weeks
LBP
Acute on chronic
Associated acute gait dysfunction and being bed for last 2- 3days
HX L2 Fx
No relief by Oxycodone
Radiation to Rt Leg
Denied Bowel abd bladder dysfunction
Denied trauma
Medical History
Past Medical History
Past Medical History: Reports Other
Additional Past Medical History:
COPD, chronic hypoxic respiratory insufficiency, chronic HFrEF, chronic back pain, obstructive sleep apnea, tobacco abuse, CKD, anxiety, depression, morbid obesity
chronic hypoxic respiratory insufficiency
chronic heart failure exacerbation
Severe low back pain
chronic kidney disease
HX L2 fracture
Past Surgical History: Reports Other
Additional Past Surgical History:
(Cholecystectomy, Orthopedic (Left shoulder reconstruction. ) and Other (Fasciotomy for fasciitis with wound VAC))
Social History
Tobacco: Smoker
Drug: None
Family History
Family History: Not pertinent
Allergies / Home Medications
Allergies reflects when Allergies were last updated in [facility].
Home Medications with original date entered in [facility]
Allergy/Medication List:
Allergies
Allergy/AdvReac Type Severity Reaction Status Date / Time
ampicillin Allergy Hives Verified 02/19/24 17:45
coconut Allergy Hives Verified 02/19/24 17:45
mustard Allergy Hives Verified 02/19/24 17:45
Home Medications
albuterol sulfate 90 mcg/actuation aerosol inhaler 2 puff inhalation R Q4HPRN PRN sob/wheezing 12/29/22
loratadine 5 mg-pseudoephedrine ER 120 mg tablet,extended release,12hr (Claritin-D 12 Hour) 1 tab PO DAILY Allergies 12/29/22
bupropion HCl 300 mg 24 hr tablet, extended release 300 mg PO DAILY Depression 07/19/23
sertraline 25 mg tablet 100 mg PO DAILY Depression 07/19/23
furosemide 40 mg tablet 40 mg PO DAILY #30 tabs 08/20/23
acetaminophen 325 mg tablet (Tylenol) 650 mg PO Q6H PRN mild pain 10/28/23
albuterol sulfate 2.5 mg/3 mL (0.083 %) solution for nebulization 2.5 mg inhalation R QID Lung/Breathing Issues 10/28/23
guaifenesin 600 mg tablet, extended release 12 hr (Mucus Relief ER) 600 mg PO BID Congestion 10/28/23
ipratropium 0.5 mg-albuterol 3 mg (2.5 mg base)/3 mL nebulization soln 3 ml inhalation R QID Lung/Breathing Issues 10/28/23
budesonide 160 mcg-glycopyr 9 mcg-formot 4.8 mcg/actuation HFA inhaler (Breztri Aerosphere) 2 inh inhalation R BID 01/18/24
prednisone 20 mg tablet 20 mg PO DAILY 01/18/24
lidocaine 4 % topical patch 1 patch topical DAILY #15 ea 01/24/24
prednisone 10 mg tablet 10 mg PO DIRECTED #30 tabs 01/24/24
Review of Systems
-
Constitutional: Reports No Symptoms
EENT: Reports No Symptoms
Respiratory: Reports See HPI and Trouble Breathing
Cardiac: Reports No Symptoms
Abdomen/GI: Reports No Symptoms
: Reports No Symptoms
Musculoskeletal: Reports Other (LBP flare )
Skin: Reports No Symptoms
Neurological: Reports No Symptoms
Endocrine: Reports No Symptoms
Hematologic/Lymphatic: Reports No Symptoms
Psych: Reports No Symptoms
Physical Exam
Vital Signs
Vital Signs
Temp Pulse Resp BP Pulse Ox
98.7 F 111 20 162/86 91
02/19/24 17:41 02/19/24 17:41 02/19/24 17:41 02/19/24 17:41 02/19/24 18:27
Physical Exam
General: Appears in Distress and Pain (LBP flare )
HEENT: NormoCephalic, Anicteric and Moist mucous membranes
Respiratory: Wheezes (biphasic, both lungs ); No Rales or Rhonchi
Cardiac: S1/S2, Regular Rhythm and Tachycardia
GI: Soft, Non Tender, Non Distended and Normal Bowel Sounds
Musculoskeletal: Other (Pain at Rt Lower back with Rt Prince SLR )
Skin: Warm and Dry
Neuro: AO x 3
Psych: Calm
Laboratory Results
-
02/19/24 18:34
02/19/24 18:34
Laboratory Results
Total Bilirubin Cancelled 02/19/24 18:34
AST Cancelled 02/19/24 18:34
ALT Cancelled 02/19/24 18:34
Alkaline Phosphatase Cancelled 02/19/24 18:34
Data Reviewed
-
Diagnostic Radiology: Report Reviewed by me
MRI: Report Reviewed by me
Lab Data: Labs Reviewed by me
Old Records: Reviewed
Impression/Plan
-
Reviewed VS: afebrile HR 110 BP 160/85 RR 20 POx 87- 91
Wt: 109.9 kg on 01/24/24 ---> 115.6 kg 02/18/23 Plus 5.7 kg over 3-4 weeks
Data
WCC 14
Na 132
Cl 97
BUN 22
Cr 1.4 - baseline range 1.4- 1.8
eGFR 39 - baseline range low 30s c/w CKD3b
CXR: No acute cardiopulmonary process.
MRI Lx wo IV contrast
Mild compression fracture of the L2 superior endplate, acute or subacute. Minimal retropulsion but no secondary spinal canal stenosis.
Last hospitalist admission: 01/18/24 - 01/24/24: COPD flare
ASSESSMENT & PLAN
Pending Rx reconciliation
AE COPD with bronchospasm and colored sputum
HX chronic hypoxic RF on home O2 2L
- Empiric PO Doxycyline
- IV Decadron 4mg q8h
- DuoNebs qid and PRN
- Cont O2 to keep POx > 93%
- Mucinex
- Pul consult
Nicotine use disorder - Stop smoking for last 5 weeks
- Counseled for cont cessation.
Severe Rt LBP flare up with radiation suspect precitated by 5 - 6 kg wt gain and cough due to COPD falre
POS Rt Prince SLR test
01/20/24 MRI without : acute on chr mild compression fracture of the L2 superior endplate
HX left-sided sciatica
- Tylenol, tramadol, lidocaine patch
- Add Flexeril
- As needed oxycodone for moderate
- IV Dilaudid PRN for severe nreak thru pain - hold for excessive sedation or altered mental state
- PT/OT
Plus 5.7 kg wt gain over 3-4 weeks ( Steroids, Fluid retention)
HX chronic HFrEF
NEG CXR for acute process
- check pro BNP
- cont APPLICATIONS SUPPORT LEAD PO Lasix 40 daily
- IV Lasix as needed
- Daily wt, IOs with Steroids
HX JUAN ANTONIO
Morbid obesity
- Not on CPAP due to anxiety
HX kidney stones
CKD 3b
- stable at baseline
- Monitor closely
Anxiety/depression
- on sertraline, bupropion
DVT Px: SQH
Code: Full
IP TLM
[2024-02-19] MEDS: ROXICODONE 5 MG PO (21:26)
[2024-02-19] MEDS: TORADOL 30 MG IV (21:26)
[2024-02-19] MEDS: TYLENOL 1000 MG PO (21:26)
[2024-02-19 21:32] VITALS: BP 128/65
[2024-02-19 22:10] LABS: NT-proBNP 775 pg/ml
--- NOTE | 2024-02-19 22:35 | PTCARENOTE ---
Patient received from ED via stretcher. Patient pulled over onto bed by staff. AAOx3, VSS. on 3L O2. Patient complaining of back pain, given medication see JAN. Flu swab done and came back negative. Patient oriented to the room. Call moyer is within
reach.
[2024-02-19 22:55] VITALS: BP 111/60; BMI 37.6
[2024-02-19 22:56] VITALS: BMI 37.6
[2024-02-19] MEDS: FLEXERIL 5 MG PO (23:15)
[2024-02-19] MEDS: VIBRAMYCIN 100 MG PO (23:15)
[2024-02-19] MEDS: SENOKOT PO (23:15)
[2024-02-19] MEDS: COLACE PO (23:15)
[2024-02-19] MEDS: DILAUDID 0.5 MG IV (23:17)
[2024-02-20] VITALS (8 sets, daily range): BP systolic 114–131; BP diastolic 57–77; PULSE 80; O2SAT 92; BMI 37.6
[2024-02-20] MEDS: TYLENOL PO (04:04)
[2024-02-20 05:58] LABS: % Basophils 0.2 % (0-2); % Immature Granulocytes 1.2 % (0-0.5); % Monocytes 2.8 % (1.7-9.3); % Neutrophils 91.8 % (42.2-75.2); Absolute Immature Granulocytes 0.1 10^3/uL (0-0.05); Absolute Lymphocytes 0.2 10^3/uL (1.2-3.4); Absolute Monocytes 0.2 10^3/uL (0.1-0.6); Absolute Neutrophils 5.3 10^3/uL (1.4-6.5); Hematocrit 35.3 % (37.0-47.0); Hemoglobin 11.8 g/dL (12.0-16.0); Mean Corp Hgb Conc. 33.4 g/dL (33.0-37.0); Mean Corpuscular Volume 92.7 fL (81.0-99.0); Mean Platelet Volume 9.3 fL (7.4-10.4); Nucleated Red Blood Cells % 0 %; Platelet Count 236 10^3/uL (130-400); Red Blood Cell Count 3.81 10^6/uL (4.20-5.40); Red Cell Dist. Width 12.5 % (11.5-14.5); White Blood Cell Count 5.8 10^3/uL (4.8-10.8)
[2024-02-20 06:25] LABS: Blood Urea Nitrogen 27 mg/dl (7-17); Calcium 9.4 mg/dl (8.4-10.2); Carbon Dioxide 28 mmol/L (22-30); Chloride 97 mmol/L (98-107); Estimated Creatinine Clearance 41 ml/min; Glucose 161 mg/dl (70-99); Potassium 4.5 mmol/L (3.5-5.1); Sodium 132 mmol/L (135-145); eGFR 33.84
[2024-02-20] MEDS: DUONEB 3 ML INH ×4 (07:47→19:16)
[2024-02-20] MEDS: DESENEX/MITRAZOL/ZEASORB 1 APPLIC TOPICAL ×2 (09:53→21:30)
[2024-02-20] MEDS: FLEXERIL PO (09:53)
[2024-02-20] MEDS: VIBRAMYCIN 100 MG PO (09:58)
[2024-02-20] MEDS: MUCINEX 600 MG PO ×2 (09:58→21:30)
[2024-02-20] MEDS: TYLENOL 650 MG PO ×4 (09:59→21:29)
[2024-02-20] MEDS: LIDOCAINE 4% PATCH 1 PATCH TOPICAL (09:59)
[2024-02-20] MEDS: HEPARIN 5000 UNITS SC ×2 (09:59→21:30)
[2024-02-20] MEDS: COLACE PO (10:00)
[2024-02-20] MEDS: DECADRON 4 MG IV ×3 (10:00→23:02)
[2024-02-20] MEDS: SENOKOT PO (10:01)
--- NOTE | 2024-02-20 14:12 | CON.PUL ---
Consultation
Consultation Request
Date/Time Consultation Requested: 02/20/24
Date/Time Consultation Performed: 02/20/24
Performing Provider: Christos
Reason for Consultation: COPD exacerbation
Medical History
-
History of Present Illness:
Patient is a 73-year-old female patient with a history of underlying COPD on 2 L of oxygen, frequent admissions for similar, followed by Dr. Sher, obstructive sleep apnea CPAP intolerant who is an active smoker with chronic heart failure preserved
EF and renal insufficiency presented with acute on chronic shortness of breath and persistent lower back pain. She discharged from [facility] 11 days ago. She is not sure what triggered her symptoms. proBNP >700 increased from prior, CXR showing no
acute process.
She is currently residing with her daughter in her living room as her home is in [place]. She has not yet been able to go home in the past year due to frequent admissions.
She does admit that her quality of life is very poor.
Past Medical History
Past Medical History: Other (see list below)
Social History
Tobacco: Smoker
Alcohol: None
Drug: None
Family History
Family History: Reviewed & Not Pertinent
Allergies / Home Medications
Allergies
Allergy/AdvReac Type Severity Reaction Status Date / Time
ampicillin Allergy Hives Verified 02/19/24 17:45
coconut Allergy Hives Verified 02/19/24 17:45
mustard Allergy Hives Verified 02/19/24 17:45
Home Medications
�Medication �Instructions �Recorded �Confirmed �Last Taken �Type
albuterol sulfate 90 mcg/actuation 2 puff inhalation R Q4HPRN PRN 12/29/22 02/20/24 10/28/23 History
aerosol inhaler sob/wheezing
loratadine 5 mg-pseudoephedrine ER 1 tab PO DAILY Allergies 12/29/22 02/20/24 01/18/24 History
120 mg tablet,extended
release,12hr (Claritin-D 12 Hour)
bupropion HCl 300 mg 24 hr tablet, 300 mg PO DAILY Depression 07/19/23 02/20/24 01/18/24 History
extended release
sertraline 25 mg tablet 100 mg PO DAILY Depression 07/19/23 02/20/24 01/18/24 History
acetaminophen 325 mg tablet 650 mg PO Q6H PRN mild pain 10/28/23 02/20/24 10/28/23 History
(Tylenol)
albuterol sulfate 2.5 mg/3 mL 2.5 mg inhalation R QID 10/28/23 02/20/24 01/18/24 History
(0.083 %) solution for nebulization Lung/Breathing Issues
guaifenesin 600 mg tablet, 600 mg PO BID Congestion 10/28/23 02/20/24 01/18/24 History
extended release 12 hr (Mucus
Relief ER)
ipratropium 0.5 mg-albuterol 3 mg 3 ml inhalation R QID 10/28/23 02/20/24 01/18/24 History
(2.5 mg base)/3 mL nebulization Lung/Breathing Issues
soln
budesonide 160 mcg-glycopyr 9 2 inh inhalation R BID 01/18/24 02/20/24 01/18/24 History
mcg-formot 4.8 mcg/actuation HFA Lung/Breathing Issues
inhaler (Breztri Aerosphere)
prednisone 20 mg tablet 20 mg PO DAILY 01/18/24 02/20/24 01/18/24 History
furosemide 40 mg tablet 40 mg PO DAILY Fluid 02/20/24 02/20/24 Unknown History
Retention/Swelling
lidocaine 4 % topical patch 1 patch topical DAILY Pain 02/20/24 02/20/24 Unknown History
prednisone 10 mg tablet 10 mg PO DIRECTED 02/20/24 02/20/24 Unknown History
Anti-Inflammatory
Review of Systems
-
History Source: Patient
All other systems: Negative unless noted
Vitals / Labs / Diagnostic Testing
Vital Signs
Temp Pulse Resp BP Pulse Ox
98.1 F 92 20 130/65 92
02/20/24 11:55 02/20/24 11:55 02/20/24 11:55 02/20/24 11:55 02/20/24 11:55
Lab Data
02/20/24 05:47
02/20/24 05:47
Microbiology
02/19/24 22:34 Nasal Swab Influenza Types A & B (EDUARD) - Final
Negative for Influenza A & B, NAAT
Negative results must be combined with clinical observations
and patient history.
Nucleic Acid Amplification test (NAAT)performed on the
[employer] platform.
Diagnostic Testing:
Physical Exam
-
HEENT: Normocephalic, Anicteric and Moist Mucous Membranes
Cardiovascular: S1/S2 and Regular Rhythm
Respiratory: Clear and Non-Labored Respirations
GI: Soft, Non Distended and Non Tender
Neurology: Awake, Alert, Oriented and AO x 3
Skin: Warm, Dry and Good Color
General: Comfortable and Other (obese)
Assessment
-
Patient is a 73-year-old female patient with a history of underlying COPD on 2 L of oxygen, frequent admissions for similar, followed by Dr. Sher, obstructive sleep apnea CPAP intolerant who is an active smoker with chronic heart failure preserved
EF and renal insufficiency presented with acute on chronic shortness of breath and persistent lower back pain. She discharged from [facility] 11 days ago. She is not sure what triggered her symptoms. proBNP >700 increased from prior, CXR showing no
acute process. We are consulted for eval 02/20/24.
COPD with acute exacerbation
Suspected comorbid acute HFpEF exacerbation
Acute on chronic SOB
Obesity (BMI: 37)
Leukocytosis--improving from prior admission
Hyperglycemia
Conditions present prior to admission:
Repetitive hospitalizations for COPD exacerbation-December, April, July, August, September 2023
Syncope admission August 2020-found minimally responsive, septic shock, left lower extremity fasciitis requiring mechanical ventilation
s/p extensive surgical debridement and wound VAC for 10 months
COPD oxygen dependent 2 L.
Active smoker.
Covid illness September 2023
Obstructive sleep apnea/CPAP intolerant.
Chronic heart failure preserved EF.
Chronic kidney disease stage III.
Anxiety/depression.
Obesity.
Sciatica.
Prior lumbar fracture.
Left lower extremity fasciitis.
Hyponatremia.
Renal calculi.
Cataract. Carpal tunnel release. Cholecystectomy 1975. Shoulder surgery 1992.
Plan
Frequent admission for AECOPD, needed readmission within 1 month from discharge
She has been admitted for AECOPD 6x in the last year: 01/24/24, 11/01/23, 08/21/23, 07/27/23, 01/11/23; prior to this: 05/11/22
Last seen in our office in Aug but has not been FU consistently
Supplemental oxygen as needed-baseline use 2-3L
She has a portable oxygen concentrator at home
Outpatient follow up with our office will be arranged for 6MWT--she has yet to FU since last admission
BiPAP if needed-currently not requiring
IV steroids, she has basically been on chronic prednisone, tapered after each admission/discharge
Continue with Spiriva and Symbicort 160mcg
Nebulized albuterol QID with prn DuoNebs q4hr
Continue Mucinex 600 twice daily
Incentive spirometry
Acapella
Consider chest physiotherapy if difficulties mobilizing secretions
Cultures reviewed
Sputum culture obtained on 01/22 -- insufficient sample
Repeat as able
Infection less likely, WBC trending down from last admission
Can check procal
Placed on doxy, but I would stop and observe off abx
Continue with diuresis as tolerated, proBNP >700
CHF component
Monitor renal function, weight, lower extremity edema and electrolytes
Diuresis per team
MRI back 01/20/2024 w/ Mild compression fracture of the L2 superior endplate, acute or subacute.
Minimal retropulsion but no secondary spinal canal stenosis.
Outpatient spine eval
She feels her pain is not adequately addressed
Smoking cessation counseling provided
DVT prophylaxis recommended: HSQ q8hr unless pt at risk for bleeding
GI prophylaxis recommended if on steroids for prolonged period
Early nutrition
Early mobilization
She is currently residing with her daughter in her living room as her home is in [place].
She has not yet been able to go home in the past year due to frequent admissions.
She does admit that her quality of life is very poor.
She was open to palliative consult, we will place
Outpatient pulmonary [id number] locally or down in [place]-has seen Dr. Roque locally- Last seen 08/29/2023
Has yet to FU due to frequent exacerbations
We will follow
Diagnostic Data
��
CXR 06/25/22: mild cardiomeg suggestive of elevated pulm venous pressures, no acute evidence of PNA, suspect mild symmetric subpleural inflammatory interstitial pneumonitis.�������
CXR 05/04/22: cardiomegaly with prominent vascularity suggesting CHF�������
CXR 01/02/23- No focal interstitial or airspace opacity.�����
Chest x-ray 10/28/2023-NAD
Chest x-ray 01/18/2024-pulmonary vascularity at top normal
Chest x-ray 01/24/2024- Chronic obstructive pulmonary disease; No superimposed acute abnormalities
CT abdomen and pelvis 01/14/2024-mild atelectasis at lung bases, small bullae left lung base without pneumothorax, no evidence for intestinal obstruction
US LLE 11/09/19: no evidence of DVT.
ECHO 01/03/23- Low-normal LV function, EF 50%. no significant valvular disease.
Echocardiogram 08/18/2023-EF 50-55%, mild aortic regurgitation
Gino 06/01/22: FVC 1.63/77%, FEV1 0.98/62%, ratio 60%, no significant BD response. Moderate obstruction and suggestive of mild restrictive pattern.
PFTs 07/02/22: FEV1 1.25L 54%, FVC 2.09L 68%, ratio 60. Post FEV1 1.32L 57%. No significant bronchodilator response. TLC 4.34L 84%, DLCO 50% (moderate obstruction, normal volumes, moderate diffusion impairment)�������
--- NOTE | 2024-02-20 14:44 | W.PN.HOSP.TC ---
Addendum entered and electronically signed by Timothy Bhatia MD 02/20/24 21:20:
Attending Addendum-
I saw and evaluated the patient. I reviewed the resident�s note and agree with findings and plan as documented in the resident�s note. states she is sob, has low back pain nonradiating, and feels weak. tired of being in the hospital. Full 12 point
ROS reviewed and negative except as documented-gen nad, heart RRR, lungs scattered wheeze, LE 1+ LE edema Plan:
# AE COPD- multiple readmissions/exacerbations- pulm consult appreciated - palliative care consult, nebs ATC, IV steroids, f/u labs in am sputum cx neg, dc doxycyline
# Acute on Chronic Respiratory Failure- wean o2 for sats 88-92% on 2L home o2 nocturnal
# Hyponatremia- hypervolemic- restart lasix, BMP in am
# HFpEF- recent echo with ef 50-55% 09/05 cont lasix daily weights fluid restrict- dry weight @ 145lbs per patient
# Tob abuse- counselled re quitting
# Chronic Low back pain- f/o lumbar compression fx- Pt OT pain control
# CKD 3b- baseline @ 1.6 avoid nephrotoxic agents '
# Depression- cont meds
Time spent coordinating care, review of plan of care with resident, review of records, med rec, consults, notes, labs, rads, d/w nursing � 55 mins
Original Note:
Today's Communication/Plan
-
Monitor BMP/pro BMP. O2 supplementation by nasal cannula as needed.
Assessment / Plan
Assessment / Plan
IMPRESSION:
This is a 73 y/o patient who presented with SOB (O2 low in 60s) and persistent lower back pain.
PLAN:
#Acute on Chronic Hypoxic Respiratory Failure
-Continue on 3L O2 supplementation by NC as needed as per pulm, chronically on O2 supplementation at home.
-was seen by pulmonology,
-Negative sputum culture on 02/18
-CXR on 02/18 showed no acute cardiopulmonary process.
-Continue Duoneb Q4hr and prn
-Continue Mucinex
-Discontinue doxycycline
-Had stopped smoking for the past 5 weeks
#History of Chronic HFrEF
-pro BNP: 775 on 02/18, monitor pro BNP
-Wt gain from 100.9kg on 01/23 to 112.2kg on 02/19
-started home medication Lasix 40mg PO
-Monitor daily weights, IOs
-Fluid restriction <2L
#Lower Back Pain
-MRI back done on 01/20/2024 showing mild compression fracture of the L2 superior endplate
-Oxycodone 5mg prn and IV dilaudid prn
-PT/OT following
#CKD3b
-serum creatinine is at baseline; today s.creatinine was 1.6
-Sodium 132 on 02/19
-stable, monitor BMP
DVT:HSQ Q8h
Full Code
Anticipated Discharge: > 48 hours
Subjective/Interval History
-
Date of Service: February 20, 2024
Patient is currently on 2L of O2 on nasal cannula.
Objective Data
-
Labs:
Laboratory Results
02/20/24
05:47
WBC 5.8
Hgb 11.8 L
Hct 35.3 L
Plt Count 236
Sodium 132 L
Potassium 4.5
Chloride 97 L
Carbon Dioxide 28
BUN 27 H
Creatinine 1.6 H
Glucose 161 H
Calcium 9.4
Vital Signs:
Vital Signs
Temp Pulse Resp BP Pulse Ox
98.1 F 92 20 130/65 92
02/20/24 11:55 02/20/24 11:55 02/20/24 11:55 02/20/24 11:55 02/20/24 11:55
Review of Systems
-
History Source: Patient
All other systems: Reviewed and negative
Physical Exam
-
General: No Apparent Distress and Conversant
HEENT: Normocephalic
Respiratory: Wheezes and Rhonchi (bilateral)
Cardiac: Regular Rhythm and S1/S2; Negative Murmur
GI: Soft, Nontender and Nondistended
Neuro: Awake, Alert and Oriented
Psych: Calm
[2024-02-20] MEDS: FLEXERIL 5 MG PO ×2 (15:00→22:42)
--- NOTE | 2024-02-20 15:39 | CM ---
Alert awake oriented patient who lives with her daughter Alma Delia in a 1 story home with 2 step to enter and bath/ bed room on first floor. She is independent in in med prep and meals .She is assisted with shower.Offered VN she requested [facility].
[facility]
PCP Dr Ant Diaz
PLAN Home with [facility] if accepted
[2024-02-20] MEDS: ROXICODONE 5 MG PO ×2 (17:49→22:45)
[2024-02-20] MEDS: COLACE 100 MG PO (21:29)
[2024-02-20] MEDS: SENOKOT 17.1999999999999993 MG PO (21:29)
[2024-02-21] MEDS: TYLENOL PO ×2 (00:15→05:08)
[2024-02-21 03:12] VITALS: BP 136/80
[2024-02-21 05:41] LABS: % Basophils 0.1 % (0-2); % Immature Granulocytes 1.6 % (0-0.5); % Lymphocytes 4.1 % (20.5-51.1); % Monocytes 4.9 % (1.7-9.3); % Neutrophils 89.3 % (42.2-75.2); Absolute Immature Granulocytes 0.2 10^3/uL (0-0.05); Absolute Lymphocytes 0.4 10^3/uL (1.2-3.4); Absolute Monocytes 0.5 10^3/uL (0.1-0.6); Absolute Neutrophils 9.4 10^3/uL (1.4-6.5); Hematocrit 34.7 % (37.0-47.0); Hemoglobin 11.2 g/dL (12.0-16.0); Mean Corp Hgb Conc. 32.3 g/dL (33.0-37.0); Mean Corpuscular Hgb 30.3 pg (27.0-31.0); Mean Corpuscular Volume 93.8 fL (81.0-99.0); Mean Platelet Volume 9.8 fL (7.4-10.4); Nucleated Red Blood Cells % 0 %; Platelet Count 268 10^3/uL (130-400); Red Cell Dist. Width 12.3 % (11.5-14.5); White Blood Cell Count 10.5 10^3/uL (4.8-10.8)
[2024-02-21 05:52] LABS: NT-proBNP 717 pg/ml
[2024-02-21 06:00] VITALS: BMI 37.9
[2024-02-21 06:09] LABS: Blood Urea Nitrogen 41 mg/dl (7-17); Calcium 9.4 mg/dl (8.4-10.2); Carbon Dioxide 26 mmol/L (22-30); Chloride 100 mmol/L (98-107); Estimated Creatinine Clearance 41 ml/min; Glucose 156 mg/dl (70-99); Potassium 5.3 mmol/L (3.5-5.1); Sodium 134 mmol/L (135-145); eGFR 33.84
--- NOTE | 2024-02-21 07:45 | W.PN.HOSP.TC ---
Addendum entered and electronically signed by Timothy Bhatia MD 02/21/24 21:34:
Attending Addendum-
I saw and evaluated the patient. I reviewed the resident�s note and agree with findings and plan as documented in the resident�s note. continues to feel SOB, complains of poor food choices, tearful due to poor prgnoisis and QOL. continues to have
back pain. Full 12 point ROS reviewed and negative except as documented-gen nad, heart RRR, lungs tight, scattered wheeze, LE 1+ LE edema Plan:
# AE COPD- multiple readmissions/exacerbations- pulm on board - palliative care consult, nebs ATC, taper IV steroids when able would keep the same as still very symptomatic, f/u labs in am sputum cx neg, dc doxycyline - overall poor prognosis
# Acute on Chronic Respiratory Failure- wean o2 for sats 88-92% on 2L home o2 nocturnal
# Hyperkalemia- mild repeat in am
# Hyponatremia- hypervolemic- improved with restart lasix, repeat BMP in am
# HFpEF- recent echo with ef 50-55% 09/05 cont lasix daily weights fluid restrict- dry weight @ 145lbs per patient
# Tob abuse- counselled re quitting
# Chronic Low back pain- h/o lumbar compression fx- Pt OT pain control icy hot patch flexeril
# CKD 3b- baseline @ 1.6 avoid nephrotoxic agents '
# Depression- cont meds
Dispo- likely will need [place] vs SNF on DC
Time spent coordinating care, review of plan of care with resident, review of records, med rec, consults, notes, labs, rads, d/w nursing � 58 mins
Original Note:
Today's Communication/Plan
-
Continue Lasix PC
Assessment / Plan
Assessment / Plan
IMPRESSION:
This is a 73 y/o patient who presented with SOB (O2 low in 60s) and persistent lower back pain.
PLAN:
#Acute on Chronic Hypoxic Respiratory Failure
-Continue O2 supplementation as needed
-Negative sputum culture on 02/18
-CXR on 02/18 showed no acute cardiopulmonary process.
-Continue Duoneb Q4hr and prn
-Continue Mucinex; started Claritin as per her home regimen
-IV decadron tapered to 4mg Q12 by pulmonology.
#History of Chronic HFrEF
-pro BNP: 775 on 02/18, 717 on 02/20
-Wt gain from 100.9kg on 01/23 to 112.2kg on 02/20
-Continue Lasix 40mg PO
-Monitor daily weights, IOs
-Fluid restriction <2L
#Lower Back Pain
-MRI back done on 01/20/2024 showing mild compression fracture of the L2 superior endplate
-Oxycodone 5mg prn and IV dilaudid prn
-PT/OT following
#CKD3b
-serum creatinine is at baseline; today s.creatinine was 1.6
-Sodium 134 on 02/20
-stable, monitor BMP
DVT:HSQ Q8h
Full Code
Anticipated Discharge: > 48 hours
Subjective/Interval History
-
Date of Service: February 21, 2024
Patient had continued cough throught the night and produced 1 episode of green sputum. Expressed that she wanted different diet option.
Objective Data
-
Labs:
Laboratory Results
02/21/24
05:11
WBC 10.5
Hgb 11.2 L
Hct 34.7 L
Plt Count 268
Sodium 134 L
Potassium 5.3 H
Chloride 100
Carbon Dioxide 26
BUN 41 H
Creatinine 1.6 H
Glucose 156 H
Calcium 9.4
Vital Signs:
Vital Signs
Temp Pulse Resp BP Pulse Ox
97.8 F 88 18 136/80 91
02/21/24 03:12 02/21/24 03:12 02/21/24 03:12 02/21/24 03:12 02/21/24 03:12
I&O
02/20/24 02/21/24 02/22/24
06:59 06:59 06:59
Intake Total 960 / 960
Output Total 750 / 750
Balance 210 / 210
Review of Systems
-
History Source: Patient
All other systems: Reviewed and negative
Physical Exam
-
General: No Apparent Distress
HEENT: Normocephalic
Respiratory: Wheezes (bilateral)
Cardiac: Regular Rhythm and S1/S2; Negative Murmur
GI: Soft, Nontender and Nondistended
Musculoskeletal: No Edema
Neuro: Awake, Alert and Oriented
Psych: Intact Judgement/Insight
[2024-02-21] MEDS: DUONEB 3 ML INH ×4 (07:54→19:57)
[2024-02-21] MEDS: COLACE 100 MG PO (08:21)
[2024-02-21] MEDS: LIDOCAINE 4% PATCH 1 PATCH TOPICAL (08:22)
[2024-02-21] MEDS: TYLENOL 650 MG PO ×4 (08:22→21:10)
[2024-02-21] MEDS: FLEXERIL 5 MG PO ×3 (08:22→21:09)
[2024-02-21] MEDS: LASIX 40 MG PO (08:22)
[2024-02-21] MEDS: MUCINEX 600 MG PO ×2 (08:22→21:09)
[2024-02-21] MEDS: SENOKOT 17.1999999999999993 MG PO (08:23)
[2024-02-21] MEDS: DECADRON 4 MG IV ×2 (08:23→21:11)
[2024-02-21 08:24] VITALS: BP 155/75
[2024-02-21] MEDS: FLUSH (NSS) 1 FLUSH IV (08:24)
[2024-02-21] MEDS: HEPARIN 5000 UNITS SC ×2 (08:24→21:12)
[2024-02-21] MEDS: DESENEX/MITRAZOL/ZEASORB 1 APPLIC TOPICAL ×2 (09:39→21:14)
--- NOTE | 2024-02-21 09:48 | W.PN.PUL3 ---
Today's Communication / Plan
-
Taper steroid to q12
Add melatonin due to insomnia, likely related to steroids
Lasix continued
Ongoing GOC discussions
Assessment
-
Patient is a 73-year-old female patient with a history of underlying COPD on 2 L of oxygen, frequent admissions for similar, followed by Dr. Sher, obstructive sleep apnea CPAP intolerant who is an active smoker with chronic heart failure preserved
EF and renal insufficiency presented with acute on chronic shortness of breath and persistent lower back pain. She discharged from [facility] 11 days ago. She is not sure what triggered her symptoms. proBNP >700 increased from prior, CXR showing no
acute process. We are consulted for eval 02/20/24.
COPD with acute exacerbation
Suspected comorbid acute HFpEF exacerbation
Acute on chronic SOB
Obesity (BMI: 37)
Leukocytosis--improving from prior admission
Hyperglycemia
Insomnia, likely steroid induced
Conditions present prior to admission:
Repetitive hospitalizations for COPD exacerbation-December, April, July, August, September 2023
Syncope admission August 2020-found minimally responsive, septic shock, left lower extremity fasciitis requiring mechanical ventilation
s/p extensive surgical debridement and wound VAC for 10 months
COPD oxygen dependent 2 L.
Active smoker.
Covid illness September 2023
Obstructive sleep apnea/CPAP intolerant.
Chronic heart failure preserved EF.
Chronic kidney disease stage III.
Anxiety/depression.
Obesity.
Sciatica.
Prior lumbar fracture.
Left lower extremity fasciitis.
Hyponatremia.
Renal calculi.
Cataract. Carpal tunnel release. Cholecystectomy 1975. Shoulder surgery 1992.
Plan
Frequent admission for AECOPD, needed readmission within 1 month from discharge
She has been admitted for AECOPD 6x in the last year: 01/24/24, 11/01/23, 08/21/23, 07/27/23, 01/11/23; prior to this: 05/11/22
Last seen in our office in Aug but has not been FU consistently
Supplemental oxygen as needed-baseline use 2-3L
She has a portable oxygen concentrator at home
Outpatient follow up with our office will be arranged for 6MWT--she has yet to FU since last admission
BiPAP if needed-currently not requiring
IV steroids, she has basically been on chronic prednisone, I will taper dose
Continue with Spiriva and Symbicort 160mcg
Nebulized albuterol QID with prn DuoNebs q4hr
Continue Mucinex 600 twice daily
Incentive spirometry
Acapella
Consider chest physiotherapy if difficulties mobilizing secretions
Cultures reviewed
Sputum culture obtained on 01/22 -- insufficient sample
Repeat as able
Infection less likely, WBC trending down from last admission
Can check procal
Placed on doxy, but I would stop and observe off abx
Continue with diuresis as tolerated, proBNP >700
CHF component
Monitor renal function, weight, lower extremity edema and electrolytes
Diuresis per team
MRI back 01/20/2024 w/ Mild compression fracture of the L2 superior endplate, acute or subacute.
Minimal retropulsion but no secondary spinal canal stenosis.
Outpatient spine eval
She feels her pain is not adequately addressed
Smoking cessation counseling provided
Insomnia noted, decrease steroids/add melatonin
DVT prophylaxis recommended: HSQ q8hr unless pt at risk for bleeding
GI prophylaxis recommended if on steroids for prolonged period
Early nutrition
Early mobilization
She is currently residing with her daughter in her living room as her home [place].
She has not yet been able to go home in the past year due to frequent admissions.
She does admit that her quality of life is very poor.
She was open to palliative consult, we will place
Outpatient pulmonary [id number] locally or down in [place]-has seen Dr. Roque locally- Last seen 08/29/2023
Has yet to FU due to frequent exacerbations
Diagnostic Data
��
CXR 06/25/22: mild cardiomeg suggestive of elevated pulm venous pressures, no acute evidence of PNA, suspect mild symmetric subpleural inflammatory interstitial pneumonitis.�������
CXR 05/04/22: cardiomegaly with prominent vascularity suggesting CHF�������
CXR 01/02/23- No focal interstitial or airspace opacity.�����
Chest x-ray 10/28/2023-NAD
Chest x-ray 01/18/2024-pulmonary vascularity at top normal
Chest x-ray 01/24/2024- Chronic obstructive pulmonary disease; No superimposed acute abnormalities
CT abdomen and pelvis 01/14/2024-mild atelectasis at lung bases, small bullae left lung base without pneumothorax, no evidence for intestinal obstruction
US LLE 11/09/19: no evidence of DVT.
ECHO 01/03/23- Low-normal LV function, EF 50%. no significant valvular disease.
Echocardiogram 08/18/2023-EF 50-55%, mild aortic regurgitation
[place] 06/01/22: FVC 1.63/77%, FEV1 0.98/62%, ratio 60%, no significant BD response. Moderate obstruction and suggestive of mild restrictive pattern.
PFTs 07/02/22: FEV1 1.25L 54%, FVC 2.09L 68%, ratio 60. Post FEV1 1.32L 57%. No significant bronchodilator response. TLC 4.34L 84%, DLCO 50% (moderate obstruction, normal volumes, moderate diffusion impairment)�������
Subjective Data
-
Date of Service:
Date of Service: February 21, 2024
Chief Complaint: Pulmonary Follow Up
Subjective:
no acute events ON, had difficulty sleeping
no new complaints
Objective Data
Data Reviewed
Vital Signs / I&O / Oxygen:
Vital Signs
Temp Pulse Resp BP Pulse Ox
97.5 F 82 20 155/75 94
02/21/24 08:24 02/21/24 08:24 02/21/24 08:24 02/21/24 08:24 02/21/24 08:24
Intake and Output
02/20/24 02/21/24 02/22/24
06:59 06:59 06:59
Intake Total 960 / 960
Output Total 750 / 750
Balance 210 / 210
SaO2 94
Nasal Cannula flow liters per 3
minute
Physical Exam
General: Comfortable and Other (NAD)
HEENT: Normocephalic, Anicteric and Moist Mucous Membranes
Cardiovascular: S1-S2 and Regular Rhythm
Respiratory: Wheeze (L>R) and Non-Labored Respirations
GI: Soft, Non Distended and Non Tender
Neurology: Awake, Alert, Oriented, AO x 3 and No Motor Deficits
Skin: Warm, Dry and Good Color
Labs/Micro/Reports
Lab Data
02/21/24 05:11
02/21/24 05:11
Microbiology
02/19/24 22:34 Nasal Swab Influenza Types A & B (EDUARD) - Final
Negative for Influenza A & B, NAAT
Negative results must be combined with clinical observations
and patient history.
Nucleic Acid Amplification test (NAAT)performed on the
[employer] platform.
[2024-02-21 12:19] VITALS: BP 136/72
[2024-02-21 12:31] VITALS: BMI 37.9
--- NOTE | 2024-02-21 16:13 | CM ---
Pt staying with dgt .
Taper steroids.
Maintained on 3 liter oxygen POX 94%.
Pt has home oxygen with [facility] .
Referral for [facility] placed and accepted.
PLAN Home with [facility] fax [phone]
[2024-02-21 16:21] VITALS: BP 130/87
--- NOTE | 2024-02-21 16:26 | PTCARENOTE ---
Pt AAO x3, MARTINEZ; OOB to chair/BSC with assist x1; c/o low back pain with OOB activity. Encouraging OOB to chair activity. VSS. On nc 3 lpm- pulse ox 93%, pt with (+) MENENDEZ/tachypnea; occ moist cough. Abd obese, soft, reshma chol low/@ Gm Na diet;
appetite fair. Voids on BSC; Purewick cath currently not in use. Resting in bed at present, no c/o. Will continue to monitor.
[2024-02-21 16:39] VITALS: BP 141/81; PULSE 112; O2SAT 88
[2024-02-21] MEDS: MELATONIN 5 MG PO (21:09)
[2024-02-21] MEDS: ROXICODONE 5 MG PO (21:12)
[2024-02-21] MEDS: COLACE PO (21:17)
[2024-02-21] MEDS: SENOKOT PO (21:17)
[2024-02-21 23:41] VITALS: BP 139/67
[2024-02-22] MEDS: TYLENOL PO ×2 (01:43→05:40)
[2024-02-22 06:00] VITALS: BMI 37.6
[2024-02-22] MEDS: DUONEB 3 ML INH ×4 (07:19→19:19)
[2024-02-22 07:25] LABS: % Basophils 0.1 % (0-2); % Immature Granulocytes 1.5 % (0-0.5); % Lymphocytes 5.5 % (20.5-51.1); % Monocytes 7.8 % (1.7-9.3); % Neutrophils 85.1 % (42.2-75.2); Absolute Immature Granulocytes 0.2 10^3/uL (0-0.05); Absolute Lymphocytes 0.6 10^3/uL (1.2-3.4); Absolute Monocytes 0.9 10^3/uL (0.1-0.6); Absolute Neutrophils 9.8 10^3/uL (1.4-6.5); Hematocrit 34.6 % (37.0-47.0); Hemoglobin 11.1 g/dL (12.0-16.0); Mean Corp Hgb Conc. 32.1 g/dL (33.0-37.0); Mean Corpuscular Hgb 30.5 pg (27.0-31.0); Mean Corpuscular Volume 95.1 fL (81.0-99.0); Nucleated Red Blood Cells % 0 %; Platelet Count 300 10^3/uL (130-400); Red Blood Cell Count 3.64 10^6/uL (4.20-5.40); Red Cell Dist. Width 12.8 % (11.5-14.5); White Blood Cell Count 11.5 10^3/uL (4.8-10.8)
[2024-02-22 07:54] VITALS: BP 138/66
[2024-02-22 07:54] LABS: Blood Urea Nitrogen 44 mg/dl (7-17); Calcium 9.2 mg/dl (8.4-10.2); Carbon Dioxide 28 mmol/L (22-30); Chloride 104 mmol/L (98-107); Estimated Creatinine Clearance 44 ml/min; Glucose 142 mg/dl (70-99); Potassium 4.6 mmol/L (3.5-5.1); Sodium 135 mmol/L (135-145); eGFR 36.57
[2024-02-22] MEDS: TYLENOL 650 MG PO ×4 (08:30→20:08)
[2024-02-22] MEDS: DESENEX/MITRAZOL/ZEASORB 1 APPLIC TOPICAL ×2 (09:21→20:08)
[2024-02-22] MEDS: FLEXERIL 5 MG PO ×3 (09:22→22:10)
[2024-02-22] MEDS: LASIX 40 MG PO (09:24)
[2024-02-22] MEDS: DECADRON 4 MG IV ×2 (09:24→20:01)
[2024-02-22] MEDS: SENOKOT PO ×2 (09:24→20:07)
[2024-02-22] MEDS: COLACE PO ×2 (09:24→20:07)
[2024-02-22] MEDS: MUCINEX 600 MG PO ×2 (09:24→20:11)
[2024-02-22] MEDS: CLARITIN 10 MG PO (09:24)
[2024-02-22] MEDS: FLUSH (NSS) 1 FLUSH IV (09:25)
[2024-02-22] MEDS: LIDOCAINE 4% PATCH 1 PATCH TOPICAL (09:25)
[2024-02-22] MEDS: HEPARIN 5000 UNITS SC ×2 (09:25→20:02)
--- NOTE | 2024-02-22 10:54 | CM ---
Addendum entered by Linda Bolaños RN 02/22/24 17:01:
Pt agreed to [facility] for SNF . Referral placed .
Pt said she will speak with MD because she feels she is not ready medically for dc yet.
PLAN To [facility] at dc
Original Note:
Pt staying with dgt in [facility] .
Tapering IV steroids.
Lasix po continues
Maintained on 3 liter oxygen POX 93%.
Pt has home oxygen with [employer] .
Referral for [facility] placed and accepted.
PLAN Home with [facility] fax [phone]
--- NOTE | 2024-02-22 10:59 | W.PN.PUL3 ---
Today's Communication / Plan
-
She is doing better with breathing, does not want to wean her IV steroids to PO today
Continue melatonin nightly
Encouraged OOB, PT today
Diuresis per team
Assessment
-
Patient is a 73-year-old female patient with a history of underlying COPD on 2 L of oxygen, frequent admissions for similar, followed by Dr. Sher, obstructive sleep apnea CPAP intolerant who is an active smoker with chronic heart failure preserved
EF and renal insufficiency presented with acute on chronic shortness of breath and persistent lower back pain. She discharged from [place] [facility] 11 days ago. She is not sure what triggered her symptoms. proBNP >700 increased from prior, CXR showing no
acute process. We are consulted for eval 02/20/24.
COPD with acute exacerbation
Suspected comorbid acute HFpEF exacerbation
Acute on chronic SOB
Obesity (BMI: 37)
Leukocytosis--improving from prior admission
Hyperglycemia
Insomnia, likely steroid induced
Conditions present prior to admission:
Repetitive hospitalizations for COPD exacerbation-December, April, July, August, September 2023
Syncope admission August 2020-found minimally responsive, septic shock, left lower extremity fasciitis requiring mechanical ventilation
s/p extensive surgical debridement and wound VAC for 10 months
COPD oxygen dependent 2 L.
Active smoker.
Covid illness September 2023
Obstructive sleep apnea/CPAP intolerant.
Chronic heart failure preserved EF.
Chronic kidney disease stage III.
Anxiety/depression.
Obesity.
Sciatica.
Prior lumbar fracture.
Left lower extremity fasciitis.
Hyponatremia.
Renal calculi.
Cataract. Carpal tunnel release. Cholecystectomy 1975. Shoulder surgery 1992.
Plan
Frequent admission for AECOPD, needed readmission within 1 month from discharge
She has been admitted for AECOPD 6x in the last year: 01/24/24, 11/01/23, 08/21/23, 07/27/23, 01/11/23; prior to this: 05/11/22
Last seen in our office in Aug but has not been FU consistently
Supplemental oxygen as needed-baseline use 2-3L
She has a portable oxygen concentrator at home
Outpatient follow up with our office will be arranged for 6MWT--she has yet to FU since last admission
BiPAP if needed-currently not requiring
IV steroids, she has basically been on chronic prednisone, I will taper dose
Continue with Spiriva and Symbicort 160mcg
Nebulized albuterol QID with prn DuoNebs q4hr
Continue Mucinex 600 twice daily
Incentive spirometry
Acapella
Consider chest physiotherapy if difficulties mobilizing secretions
Cultures reviewed
Sputum culture obtained on 01/22 -- insufficient sample
Repeat as able
Infection less likely, WBC trending down from last admission
Observe off abx
Continue with diuresis as tolerated, proBNP >700
CHF component
Monitor renal function, weight, lower extremity edema and electrolytes
Diuresis per team
MRI back 01/20/2024 w/ Mild compression fracture of the L2 superior endplate, acute or subacute.
Minimal retropulsion but no secondary spinal canal stenosis.
Outpatient spine eval
She feels her pain is not adequately addressed
Smoking cessation counseling provided
Insomnia noted, decrease steroids
Continue melatonin
DVT prophylaxis recommended: HSQ q8hr unless pt at risk for bleeding
GI prophylaxis recommended if on steroids for prolonged period
Early nutrition
Early mobilization
She is currently residing with her daughter in her living room as [place].
She has not yet been able to go home in the past year due to frequent admissions.
She does admit that her quality of life is very poor.
She was open to palliative consult, we will place
Outpatient pulmonary [id number]-[id number] locally or down in [place]-has seen Dr. Roque locally- Last seen 08/29/2023
Has yet to FU due to frequent exacerbations
Diagnostic Data
��
CXR 06/25/22: mild cardiomeg suggestive of elevated pulm venous pressures, no acute evidence of PNA, suspect mild symmetric subpleural inflammatory interstitial pneumonitis.�������
CXR 05/04/22: cardiomegaly with prominent vascularity suggesting CHF�������
CXR 01/02/23- No focal interstitial or airspace opacity.�����
Chest x-ray 10/28/2023-NAD
Chest x-ray 01/18/2024-pulmonary vascularity at top normal
Chest x-ray 01/24/2024- Chronic obstructive pulmonary disease; No superimposed acute abnormalities
CT abdomen and pelvis 01/14/2024-mild atelectasis at lung bases, small bullae left lung base without pneumothorax, no evidence for intestinal obstruction
US LLE 11/09/19: no evidence of DVT.
ECHO 01/03/23- Low-normal LV function, EF 50%. no significant valvular disease.
Echocardiogram 08/18/2023-EF 50-55%, mild aortic regurgitation
[place] 06/01/22: FVC 1.63/77%, FEV1 0.98/62%, ratio 60%, no significant BD response. Moderate obstruction and suggestive of mild restrictive pattern.
PFTs 07/02/22: FEV1 1.25L 54%, FVC 2.09L 68%, ratio 60. Post FEV1 1.32L 57%. No significant bronchodilator response. TLC 4.34L 84%, DLCO 50% (moderate obstruction, normal volumes, moderate diffusion impairment)�������
Subjective Data
-
Date of Service:
Date of Service: February 22, 2024
Chief Complaint: Pulmonary Follow Up
Subjective:
slept better overnight with melatonin
does feel slightly better in terms of SOB
Objective Data
Data Reviewed
Vital Signs / I&O / Oxygen:
Vital Signs
Temp Pulse Resp BP Pulse Ox
97.6 F 77 24 138/66 93
02/22/24 07:54 02/22/24 09:24 02/22/24 07:54 02/22/24 09:24 02/22/24 09:19
Intake and Output
02/21/24 02/22/24 02/23/24
06:59 06:59 06:59
Intake Total 960 / 960 920 / 920
Output Total 750 / 750 1200 / 1200
Balance 210 / 210 -280 / -280
SaO2 93
Nasal Cannula flow liters per 3
minute
Physical Exam
General: Comfortable and Other (NAD)
HEENT: Normocephalic, Anicteric and Moist Mucous Membranes
Cardiovascular: S1-S2 and Regular Rhythm
Respiratory: Wheeze (L>R) and Non-Labored Respirations
GI: Soft, Non Distended and Non Tender
Neurology: Awake, Alert, Oriented, AO x 3 and No Motor Deficits
Skin: Warm, Dry and Good Color
Labs/Micro/Reports
Lab Data
02/22/24 06:53
02/22/24 06:53
Microbiology
02/19/24 22:34 Nasal Swab Influenza Types A & B (EDURAD) - Final
Negative for Influenza A & B, NAAT
Negative results must be combined with clinical observations
and patient history.
Nucleic Acid Amplification test (NAAT)performed on the
[employer] platform.
--- NOTE | 2024-02-22 15:27 | W.PN.HOSP.TC ---
Addendum entered and electronically signed by Moisés Brady MD 02/22/24 16:44:
Patient seen and examined
Discussed with resident
Impression:
Lower back pain secondary to compression fractures
Acute on chronic hypoxic respiratory insufficiency likely triggered by severe pain and low pulmonary reserve.
Likely steroid-induced leukocytosis
Steroid-induced hyperglycemia.
Conditions prior to admission:
Advanced COPD
Chronic hypoxic respiratory failure on home O2 2 L
Active smoker
Obstructive sleep apnea CPAP intolerant
Chronic heart failure preserved EF
Chronic kidney disease stage III.
Obesity BMI 37.
Plan:
Mild compression fracture at L2 superior endplate.
Continue current analgesic regimen
Continue physical therapy
COPD exacerbation
Patient with advanced COPD and acute on chronic hypoxic respiratory failure due to low reserve and likely triggered by severe pain.
Current exam with slightly increased work of breathing even at rest.
Bilateral rhonchi.
Comfortable at rest while on 2 L of nasal cannula supplementation
According to recent physical therapy evaluation has poor activity tolerance.
Continue oxygen supplementation
Transition to oral corticosteroid taper.
With history of chronic diastolic CHF, her status has been euvolemic and she has been transitioned to oral Lasix.
Suggested discharge to snf facility for further recovery overall deconditioning and tenuous respiratory status.
Unfortunately she has not been able to tolerate CPAP
Counseled about tobacco smoking
Would be appropriate for palliative care consult
Original Note:
Today's Communication/Plan
-
Discussed with patient about SNF placement upon discharge and she agreed
Assessment / Plan
Assessment / Plan
IMPRESSION:
This is a 73 y/o patient who presented with SOB (O2 low in 60s) and persistent lower back pain.
PLAN:
#Acute on Chronic Hypoxic Respiratory Failure
-Continue O2 supplementation as needed
-Negative sputum culture on 02/18
-CXR on 02/18 showed no acute cardiopulmonary process.
-Continue Duoneb Q4hr and prn
-Continue Mucinex; continue Claritin as per her home regimen
-Continue IV decadron tapered to 4mg Q12 by pulmonology.
-Will transition from decadron to oral prednisone taper upon discharge
-discharge pending on SNF availability
#History of Chronic HFrEF
-pro BNP: 775 on 02/18, 717 on 02/20
-Monitor daily weights, IOs
-Fluid restriction <2L
-Continue Lasix 40mg PO
#Lower Back Pain
-MRI back done on 01/20/2024 showing mild compression fracture of the L2 superior endplate
-Oxycodone 5mg prn and IV dilaudid prn
-PT/OT following
#CKD3b
-serum creatinine is at baseline; today s.creatinine was 1.5
-stable, monitor BMP
DVT:HSQ Q8h
Full Code
Anticipated Discharge: 24 - 48 hours
Subjective/Interval History
-
Date of Service: February 22, 2024
Patient does not have any acute concerns but feels it may be better for her to go to rehab upon discharge.
Objective Data
-
Labs:
Laboratory Results
02/22/24
06:53
WBC 11.5 H
Hgb 11.1 L
Hct 34.6 L
Plt Count 300
Sodium 135
Potassium 4.6
Chloride 104
Carbon Dioxide 28
BUN 44 H
Creatinine 1.5 H
Glucose 142 H
Calcium 9.2
Vital Signs:
Vital Signs
Temp Pulse Resp BP Pulse Ox
97.6 F 84 16 138/66 93
02/22/24 07:54 02/22/24 11:27 02/22/24 11:27 02/22/24 09:24 02/22/24 09:19
I&O
02/21/24 02/22/24 02/23/24
06:59 06:59 06:59
Intake Total 960 / 960 920 / 920
Output Total 750 / 750 1200 / 1200
Balance 210 / 210 -280 / -280
Review of Systems
-
History Source: Patient
All other systems: Reviewed and negative
Physical Exam
-
General: No Apparent Distress
HEENT: Normocephalic
Respiratory: Rhonchi (bilateral)
Cardiac: Regular Rhythm and S1/S2; Negative Murmur
GI: Soft, Nontender and Nondistended
Musculoskeletal: No Edema
Neuro: Awake, Alert and Oriented
Psych: Calm
[2024-02-22 16:00] VITALS: BP 140/82
--- NOTE | 2024-02-22 16:13 | PTCARENOTE ---
Pt AAO x3, MARTINEZ; OOB to chair with assist x1, c/o 'legs weak' but reshma well. VSS. HRR; tachy to 100's with OOB activity. On nc 3 lpm- pulse ox 94%, pt with (+) MENENDEZ/orthopnea/tachypnea; occ harsh, non-productive cough. Abd obese, soft, reshma PO well.
Purewick removed, pt instructed to call for assistance to void on BSC. Resting in bed at present, will continue to monitor.
[2024-02-22] MEDS: ROXICODONE 5 MG PO (20:16)
[2024-02-22] MEDS: MELATONIN 5 MG PO (22:11)
[2024-02-22 23:52] VITALS: BP 114/67
[2024-02-23] MEDS: TYLENOL PO ×2 (01:47→05:13)
[2024-02-23 05:31] LABS: % Basophils 0.1 % (0-2); % Immature Granulocytes 1.1 % (0-0.5); % Lymphocytes 4.4 % (20.5-51.1); % Monocytes 6.3 % (1.7-9.3); % Neutrophils 88.1 % (42.2-75.2); Absolute Immature Granulocytes 0.2 10^3/uL (0-0.05); Absolute Lymphocytes 0.8 10^3/uL (1.2-3.4); Absolute Monocytes 1.1 10^3/uL (0.1-0.6); Absolute Neutrophils 15.4 10^3/uL (1.4-6.5); Hematocrit 36.6 % (37.0-47.0); Hemoglobin 11.6 g/dL (12.0-16.0); Mean Corp Hgb Conc. 31.7 g/dL (33.0-37.0); Mean Corpuscular Hgb 30.3 pg (27.0-31.0); Mean Corpuscular Volume 95.6 fL (81.0-99.0); Mean Platelet Volume 9.8 fL (7.4-10.4); Nucleated Red Blood Cells % 0 %; Platelet Count 319 10^3/uL (130-400); Red Blood Cell Count 3.83 10^6/uL (4.20-5.40); Red Cell Dist. Width 12.9 % (11.5-14.5); White Blood Cell Count 17.5 10^3/uL (4.8-10.8)
[2024-02-23] MEDS: ROXICODONE 5 MG PO ×2 (05:51→21:56)
[2024-02-23 06:00] VITALS: BMI 36.9
[2024-02-23] MEDS: DUONEB 3 ML INH ×4 (07:21→19:17)
[2024-02-23 07:55] VITALS: BP 131/59
[2024-02-23] MEDS: FLEXERIL 5 MG PO ×3 (09:30→21:56)
[2024-02-23] MEDS: MUCINEX 600 MG PO ×2 (09:30→20:22)
[2024-02-23] MEDS: LASIX 40 MG PO (09:31)
[2024-02-23] MEDS: CLARITIN 10 MG PO (09:31)
[2024-02-23] MEDS: SENOKOT PO ×3 (09:32→20:26)
[2024-02-23] MEDS: TYLENOL 650 MG PO ×4 (09:32→20:22)
[2024-02-23] MEDS: COLACE PO ×3 (09:33→20:26)
[2024-02-23] MEDS: DECADRON 4 MG IV (09:33)
[2024-02-23] MEDS: DESENEX/MITRAZOL/ZEASORB 1 APPLIC TOPICAL ×2 (09:33→20:22)
[2024-02-23] MEDS: FLUSH (NSS) 2 FLUSH IV (09:33)
[2024-02-23] MEDS: HEPARIN 5000 UNITS SC ×2 (09:34→20:22)
[2024-02-23] MEDS: LIDOCAINE 4% PATCH TOPICAL ×2 (09:34→09:54)
--- NOTE | 2024-02-23 10:06 | W.PN.PUL3 ---
Today's Communication / Plan
-
Taper IV steroids to PO prednisone today, start with 50mg, can taper by 10 every 5 days
She feels last time her prednisone was weaned to quickly, slow taper at discharge
Evaluate for discharge in AM, she was agreeable to SNF again
We discussed palliative care which she and her family were open to
Outpatient pulmonary FU recommended
Assessment
-
Patient is a 73-year-old female patient with a history of underlying COPD on 2 L of oxygen, frequent admissions for similar, followed by Dr. Sher, obstructive sleep apnea CPAP intolerant who is an active smoker with chronic heart failure preserved
EF and renal insufficiency presented with acute on chronic shortness of breath and persistent lower back pain. She discharged from [facility] 11 days ago. She is not sure what triggered her symptoms. proBNP >700 increased from prior, CXR showing no
acute process. We are consulted for eval 02/20/24.
COPD with acute exacerbation
Suspected comorbid acute HFpEF exacerbation
Acute on chronic SOB
Obesity (BMI: 37)
Leukocytosis--improving from prior admission
Hyperglycemia
Insomnia, likely steroid induced
Conditions present prior to admission:
Repetitive hospitalizations for COPD exacerbation-December, April, July, August, September 2023
Syncope admission August 2020-found minimally responsive, septic shock, left lower extremity fasciitis requiring mechanical ventilation
s/p extensive surgical debridement and wound VAC for 10 months
COPD oxygen dependent 2 L.
Active smoker.
Covid illness September 2023
Obstructive sleep apnea/CPAP intolerant.
Chronic heart failure preserved EF.
Chronic kidney disease stage III.
Anxiety/depression.
Obesity.
Sciatica.
Prior lumbar fracture.
Left lower extremity fasciitis.
Hyponatremia.
Renal calculi.
Cataract. Carpal tunnel release. Cholecystectomy 1975. Shoulder surgery 1992.
Plan
Frequent admission for AECOPD, needed readmission within 1 month from discharge
She has been admitted for AECOPD 6x in the last year: 3/12/24, 11/01/23, 08/21/23, 07/27/23, 01/11/23; prior to this: 05/11/22
Last seen in our office in Aug but has not been FU consistently
Supplemental oxygen as needed-baseline use 2-3L
She has a portable oxygen concentrator at home
Outpatient follow up with our office will be arranged for 6MWT--she has yet to FU since last admission
BiPAP if needed-currently not requiring
IV steroids, she has basically been on chronic prednisone, I will taper dose to prednisone today
Continue with Spiriva and Symbicort 160mcg
Nebulized albuterol QID with prn DuoNebs q4hr
Continue Mucinex 600 twice daily
Incentive spirometry
Acapella
Consider chest physiotherapy if difficulties mobilizing secretions
Cultures reviewed
Sputum culture obtained on 01/22 -- insufficient sample
Repeat as able
Infection less likely, WBC trending down from last admission
Observe off abx
Continue with diuresis as tolerated, proBNP >700
CHF component
Monitor renal function, weight, lower extremity edema and electrolytes
Diuresis per team
MRI back 01/20/2024 w/ Mild compression fracture of the L2 superior endplate, acute or subacute.
Minimal retropulsion but no secondary spinal canal stenosis.
Outpatient spine eval
She feels her pain is not adequately addressed
Smoking cessation counseling provided
Insomnia noted, decrease steroids
Continue melatonin
DVT prophylaxis recommended: HSQ q8hr unless pt at risk for bleeding
GI prophylaxis recommended if on steroids for prolonged period
Early nutrition
Early mobilization
She is currently residing with her daughter in her living room as her home is in [place].
She has not yet been able to go home in the past year due to frequent admissions.
She does admit that her quality of life is very poor.
She was open to palliative consult, we will place
Outpatient pulmonary [id number] locally or down in [place]-has seen Dr. Roque locally- Last seen 08/29/2023
Has yet to FU due to frequent exacerbations
Diagnostic Data
��
CXR 06/25/22: mild cardiomeg suggestive of elevated pulm venous pressures, no acute evidence of PNA, suspect mild symmetric subpleural inflammatory interstitial pneumonitis.�������
CXR 05/04/22: cardiomegaly with prominent vascularity suggesting CHF�������
CXR 01/02/23- No focal interstitial or airspace opacity.�����
Chest x-ray 10/28/2023-NAD
Chest x-ray 01/18/2024-pulmonary vascularity at top normal
Chest x-ray 01/24/2024- Chronic obstructive pulmonary disease; No superimposed acute abnormalities
CT abdomen and pelvis 01/14/2024-mild atelectasis at lung bases, small bullae left lung base without pneumothorax, no evidence for intestinal obstruction
US LLE 11/09/19: no evidence of DVT.
ECHO 01/03/23- Low-normal LV function, EF 50%. no significant valvular disease.
Echocardiogram 08/18/2023-EF 50-55%, mild aortic regurgitation
Gino 06/01/22: FVC 1.63/77%, FEV1 0.98/62%, ratio 60%, no significant BD response. Moderate obstruction and suggestive of mild restrictive pattern.
PFTs 07/02/22: FEV1 1.25L 54%, FVC 2.09L 68%, ratio 60. Post FEV1 1.32L 57%. No significant bronchodilator response. TLC 4.34L 84%, DLCO 50% (moderate obstruction, normal volumes, moderate diffusion impairment)�������
Subjective Data
-
Date of Service:
Date of Service: February 23, 2024
Chief Complaint: Pulmonary Follow Up
Subjective:
no acute events ON
remains stable
feels her breathing is improving
Objective Data
Data Reviewed
Vital Signs / I&O / Oxygen:
Vital Signs
Temp Pulse Resp BP Pulse Ox
97.5 F 79 20 131/59 95
02/23/24 07:55 02/23/24 07:55 02/23/24 07:55 02/23/24 07:55 02/23/24 07:55
Intake and Output
02/22/24 02/23/24 02/24/24
06:59 06:59 06:59
Intake Total 920 / 920 1230 / 1230
Output Total 1200 / 1200 1350 / 1350
Balance -280 / -280 -120 / -120
SaO2 95
Nasal Cannula flow liters per 3
minute
Physical Exam
General: Comfortable and Other (NAD)
HEENT: Normocephalic, Anicteric and Moist Mucous Membranes
Cardiovascular: S1-S2 and Regular Rhythm
Respiratory: Wheeze (L>R) and Non-Labored Respirations
GI: Soft, Non Distended and Non Tender
Neurology: Awake, Alert, Oriented, AO x 3 and No Motor Deficits
Skin: Warm, Dry and Good Color
Labs/Micro/Reports
Lab Data
02/23/24 05:02
02/22/24 06:53
--- NOTE | 2024-02-23 11:29 | W.PN.HOSP.TC ---
Addendum entered and electronically signed by Moisés Brady MD 02/23/24 16:46:
Patient seen and examined
Discussed with resident
Impression:
Lower back pain secondary to compression fractures
Acute on chronic hypoxic respiratory insufficiency likely triggered by severe pain and low pulmonary reserve.
Likely steroid-induced leukocytosis
Steroid-induced hyperglycemia.
Conditions prior to admission:
Advanced COPD
Chronic hypoxic respiratory failure on home O2 2 L
Active smoker
Obstructive sleep apnea CPAP intolerant
Chronic heart failure preserved EF
Chronic kidney disease stage III.
Obesity BMI 37.
Plan:
Mild compression fracture at L2 superior endplate.
Continue current analgesic regimen
Continue physical therapy
COPD exacerbation
Patient with advanced COPD and acute on chronic hypoxic respiratory failure due to low reserve and likely triggered by severe pain.
Current exam with slightly increased work of breathing even at rest.
Bilateral rhonchi.
Comfortable at rest while on 2 L of nasal cannula supplementation
According to recent physical therapy evaluation has poor activity tolerance.
Continue oxygen supplementation
Transition to oral corticosteroid taper.
With history of chronic diastolic CHF, her status has been euvolemic and she has been transitioned to oral Lasix.
Suggested discharge to [facility] facility for further recovery overall deconditioning and tenuous respiratory status.
Unfortunately she has not been able to tolerate CPAP
Counseled about tobacco smoking
Would be appropriate for palliative care consult
Original Note:
Today's Communication/Plan
-
Transitioned to oral prednisone taper
Assessment / Plan
Assessment / Plan
IMPRESSION:
This is a 73 y/o patient who presented with SOB (O2 low in 60s at home) and persistent lower back pain.
PLAN:
#Acute on Chronic Hypoxic Respiratory Failure
-Continue O2 supplementation as needed
-Negative sputum culture on 02/18
-CXR on 02/18 showed no acute cardiopulmonary process.
-Continue Duoneb Q4hr and prn
-Continue Mucinex; continue Claritin as per her home regimen
-Continue IV decadron tapered to 4mg Q12 by pulmonology.
-Transitioned from Decadron to oral prednisone taper starting 40mg initially
-discharge pending on SNF availability
#History of Chronic HFrEF
-pro BNP: 775 on 02/18, 717 on 02/20
-Monitor daily weights, IOs
-Fluid restriction <2L
-Continue Lasix 40mg PO
#Lower Back Pain
-MRI back done on 01/20/2024 showing mild compression fracture of the L2 superior endplate
-Oxycodone 5mg prn and IV dilaudid prn
-PT/OT following
#CKD3b
-serum creatinine is at baseline
-stable, monitor BMP
DVT:HSQ Q8h
Full Code
Anticipated Discharge: 24 - 48 hours
Subjective/Interval History
-
Date of Service: February 23, 2024
Patient has no new acute concerns; continues to have lower back pain
Objective Data
-
Labs:
Laboratory Results
02/23/24
05:02
WBC 17.5 H
Hgb 11.6 L
Hct 36.6 L
Plt Count 319
Vital Signs:
Vital Signs
Temp Pulse Resp BP Pulse Ox
97.5 F 80 16 131/59 95
02/23/24 07:55 02/23/24 11:14 02/23/24 11:14 02/23/24 07:55 02/23/24 07:55
I&O
02/22/24 02/23/24 02/24/24
06:59 06:59 06:59
Intake Total 920 / 920 1230 / 1230
Output Total 1200 / 1200 1350 / 1350
Balance -280 / -280 -120 / -120
Review of Systems
-
History Source: Patient
All other systems: Reviewed and negative
Physical Exam
-
General: No Apparent Distress
HEENT: Normocephalic
Respiratory: Wheezes (bilateral)
Cardiac: Regular Rhythm and S1/S2; Negative Murmur
GI: Soft, Nontender and Nondistended
Musculoskeletal: No Edema
Neuro: Awake, Alert and Oriented
Psych: Intact Judgement/Insight
[2024-02-23 12:35] VITALS: BP 94/64; PULSE 96; O2SAT 96
[2024-02-23 15:55] VITALS: BP 108/67
[2024-02-23] MEDS: MELATONIN 5 MG PO (21:56)
[2024-02-23 23:52] VITALS: BP 127/60
[2024-02-24] MEDS: TYLENOL PO ×2 (00:02→04:17)
[2024-02-24 06:00] VITALS: BMI 37.0
[2024-02-24] MEDS: DUONEB 3 ML INH ×4 (07:33→19:35)
[2024-02-24 07:55] VITALS: BP 121/63
[2024-02-24 08:11] LABS: % Basophils 0.4 % (0-2); % Eosinophils 0.2 % (0-6); % Immature Granulocytes 4.6 % (0-0.5); % Lymphocytes 13.7 % (20.5-51.1); % Monocytes 8.8 % (1.7-9.3); % Neutrophils 72.3 % (42.2-75.2); Absolute Basophils 0.1 10^3/uL (0-0.2); Absolute Immature Granulocytes 0.8 10^3/uL (0-0.05); Absolute Lymphocytes 2.5 10^3/uL (1.2-3.4); Absolute Monocytes 1.6 10^3/uL (0.1-0.6); Absolute Neutrophils 13.1 10^3/uL (1.4-6.5); Hemoglobin 11.2 g/dL (12.0-16.0); Mean Corp Hgb Conc. 31.1 g/dL (33.0-37.0); Mean Corpuscular Hgb 30.1 pg (27.0-31.0); Mean Corpuscular Volume 96.8 fL (81.0-99.0); Mean Platelet Volume 9.8 fL (7.4-10.4); Nucleated Red Blood Cells % 0 %; Platelet Count 338 10^3/uL (130-400); Red Blood Cell Count 3.72 10^6/uL (4.20-5.40); Red Cell Dist. Width 13.1 % (11.5-14.5); White Blood Cell Count 18.1 10^3/uL (4.8-10.8)
[2024-02-24 08:23] LABS: Blood Urea Nitrogen 41 mg/dl (7-17); Calcium 9.6 mg/dl (8.4-10.2); Carbon Dioxide 28 mmol/L (22-30); Chloride 101 mmol/L (98-107); Estimated Creatinine Clearance 50 ml/min; Glucose 116 mg/dl (70-99); Potassium 4.5 mmol/L (3.5-5.1); Sodium 136 mmol/L (135-145); eGFR 43.42
[2024-02-24] MEDS: FLEXERIL 5 MG PO ×3 (09:03→22:04)
[2024-02-24] MEDS: COLACE 100 MG PO ×2 (09:04→20:10)
[2024-02-24] MEDS: SENOKOT 17.1999999999999993 MG PO ×2 (09:04→20:11)
[2024-02-24] MEDS: MUCINEX 600 MG PO ×2 (09:04→20:10)
[2024-02-24] MEDS: LIDOCAINE 4% PATCH 1 PATCH TOPICAL (09:04)
[2024-02-24] MEDS: DELTASONE 50 MG PO (09:04)
[2024-02-24] MEDS: LASIX 40 MG PO (09:05)
[2024-02-24] MEDS: CLARITIN 10 MG PO (09:05)
[2024-02-24] MEDS: TYLENOL 650 MG PO ×4 (09:05→20:11)
[2024-02-24] MEDS: HEPARIN 5000 UNITS SC ×2 (09:06→20:11)
[2024-02-24] MEDS: DESENEX/MITRAZOL/ZEASORB 1 APPLIC TOPICAL ×2 (09:07→20:10)
[2024-02-24] MEDS: FLUSH (NSS) 1 FLUSH IV (09:07)
--- NOTE | 2024-02-24 09:25 | W.PN.PUL3 ---
Today's Communication / Plan
-
Increase melatonin dose for parasomnias
Prednisone taper at discharge
Discharge likely to SNF tomorrow
Outpatient pulmonary FU recommended
Assessment
-
Patient is a 73-year-old female patient with a history of underlying COPD on 2 L of oxygen, frequent admissions for similar, followed by Dr. Sher, obstructive sleep apnea CPAP intolerant who is an active smoker with chronic heart failure preserved
EF and renal insufficiency presented with acute on chronic shortness of breath and persistent lower back pain. She discharged from [facility] 11 days ago. She is not sure what triggered her symptoms. proBNP >700 increased from prior, CXR showing no
acute process. We are consulted for eval 02/20/24.
COPD with acute exacerbation
Suspected comorbid acute HFpEF exacerbation
Acute on chronic SOB
Obesity (BMI: 37)
Leukocytosis--improving from prior admission
Hyperglycemia
Insomnia, likely steroid induced
Conditions present prior to admission:
Repetitive hospitalizations for COPD exacerbation-December, April, July, August, September 2023
Syncope admission August 2020-found minimally responsive, septic shock, left lower extremity fasciitis requiring mechanical ventilation
s/p extensive surgical debridement and wound VAC for 10 months
COPD oxygen dependent 2 L.
Active smoker.
Covid illness September 2023
Obstructive sleep apnea/CPAP intolerant.
Chronic heart failure preserved EF.
Chronic kidney disease stage III.
Anxiety/depression.
Obesity.
Sciatica.
Prior lumbar fracture.
Left lower extremity fasciitis.
Hyponatremia.
Renal calculi.
Cataract. Carpal tunnel release. Cholecystectomy 1975. Shoulder surgery 1992.
Plan
Frequent admission for AECOPD, needed readmission within 1 month from discharge
She has been admitted for AECOPD 6x in the last year: 01/24/24, 11/01/23, 08/21/23, 07/27/23, 01/11/23; prior to this: 05/11/22
Last seen in our office in Aug but has not been FU consistently
Supplemental oxygen as needed-baseline use 2-3L
She has a portable oxygen concentrator at home
Outpatient follow up with our office will be arranged for 6MWT--she has yet to FU since last admission
BiPAP if needed-currently not requiring
PO steroids, taper slowly at discharge
Continue with Spiriva and Symbicort 160mcg
Nebulized albuterol QID with prn DuoNebs q4hr
Continue Mucinex 600 twice daily
Incentive spirometry
Acapella
Consider chest physiotherapy if difficulties mobilizing secretions
Cultures reviewed
Sputum culture obtained on 01/22 -- insufficient sample
Repeat as able
Infection less likely, WBC trending down from last admission
Observe off abx
Continue with diuresis as tolerated, proBNP >700
CHF component
Monitor renal function, weight, lower extremity edema and electrolytes
Diuresis per team
MRI back 01/20/2024 w/ Mild compression fracture of the L2 superior endplate, acute or subacute.
Minimal retropulsion but no secondary spinal canal stenosis.
Outpatient spine eval
She feels her pain is not adequately addressed
Smoking cessation counseling provided
Insomnia noted, decrease steroids
Continue melatonin, will increase dose for parasomnias
DVT prophylaxis recommended: HSQ q8hr unless pt at risk for bleeding
GI prophylaxis recommended if on steroids for prolonged period
Early nutrition
Early mobilization
She is currently residing with her daughter in her living room as her home is in [place].
She has not yet been able to go home in the past year due to frequent admissions.
She does admit that her quality of life is very poor.
She was open to palliative consult, we will place
Outpatient pulmonary [facility] locally or down in [place]-has seen Dr. Roque locally- Last seen 08/29/2023
Has yet to FU due to frequent exacerbations
Diagnostic Data
��
CXR 06/25/22: mild cardiomeg suggestive of elevated pulm venous pressures, no acute evidence of PNA, suspect mild symmetric subpleural inflammatory interstitial pneumonitis.�������
CXR 05/04/22: cardiomegaly with prominent vascularity suggesting CHF�������
CXR 01/02/23- No focal interstitial or airspace opacity.�����
Chest x-ray 10/28/2023-NAD
Chest x-ray 01/18/2024-pulmonary vascularity at top normal
Chest x-ray 01/24/2024- Chronic obstructive pulmonary disease; No superimposed acute abnormalities
CT abdomen and pelvis 01/14/2024-mild atelectasis at lung bases, small bullae left lung base without pneumothorax, no evidence for intestinal obstruction
US LLE 11/09/19: no evidence of DVT.
ECHO 01/03/23- Low-normal LV function, EF 50%. no significant valvular disease.
Echocardiogram 08/18/2023-EF 50-55%, mild aortic regurgitation
Gino 06/01/22: FVC 1.63/77%, FEV1 0.98/62%, ratio 60%, no significant BD response. Moderate obstruction and suggestive of mild restrictive pattern.
PFTs 07/02/22: FEV1 1.25L 54%, FVC 2.09L 68%, ratio 60. Post FEV1 1.32L 57%. No significant bronchodilator response. TLC 4.34L 84%, DLCO 50% (moderate obstruction, normal volumes, moderate diffusion impairment)�������
Subjective Data
-
Date of Service:
Date of Service: February 24, 2024
Chief Complaint: Pulmonary Follow Up
Subjective:
doing well but she notes more night terrors last night
breathing is improving
Objective Data
Data Reviewed
Vital Signs / I&O / Oxygen:
Vital Signs
Temp Pulse Resp BP Pulse Ox
97.5 F 78 20 121/63 94
02/24/24 07:55 02/24/24 09:05 02/24/24 07:55 02/24/24 09:05 02/24/24 09:01
Intake and Output
02/23/24 02/24/24 02/25/24
06:59 06:59 06:59
Intake Total 1230 / 1230 1080 / 1080
Output Total 1350 / 1350
Balance -120 / -120 1080 / 1080
SaO2 94
Nasal Cannula flow liters per 3
minute
Physical Exam
General: Comfortable and Other (NAD)
HEENT: Normocephalic, Anicteric and Moist Mucous Membranes
Cardiovascular: S1-S2 and Regular Rhythm
Respiratory: Wheeze (L>R) and Non-Labored Respirations
GI: Soft, Non Distended and Non Tender
Neurology: Awake, Alert, Oriented, AO x 3 and No Motor Deficits
Skin: Warm, Dry and Good Color
Labs/Micro/Reports
Lab Data
02/24/24 06:54
02/24/24 06:54
[2024-02-24 10:01] VITALS: BMI 37.0
--- NOTE | 2024-02-24 10:41 | W.PN.HOSP.TC ---
Addendum entered and electronically signed by Moisés Brady MD 02/24/24 16:09:
Patient seen and examined
Discussed with resident
Discussed with pulmonology [place]
Impression:
Lower back pain secondary to compression fractures
Acute on chronic hypoxic respiratory insufficiency likely triggered by severe pain and low pulmonary reserve.
Likely steroid-induced leukocytosis
Steroid-induced hyperglycemia.
Conditions prior to admission:
Advanced COPD
Chronic hypoxic respiratory failure on home O2 2 L
Active smoker
Obstructive sleep apnea CPAP intolerant
Chronic heart failure preserved EF
Chronic kidney disease stage III.
Obesity BMI 37.
Plan:
Mild compression fracture at L2 superior endplate.
Continue current analgesic regimen
Continue physical therapy
COPD exacerbation
Patient with advanced COPD and acute on chronic hypoxic respiratory failure due to low reserve and likely triggered by severe pain.
Current exam with slightly increased work of breathing even at rest.
Bilateral rhonchi.
Comfortable at rest while on 2 L of nasal cannula supplementation
According to recent physical therapy evaluation has poor activity tolerance.
Continue oxygen supplementation
Transition to oral corticosteroid taper.
With history of chronic diastolic CHF, her status has been euvolemic and she has been transitioned to oral Lasix.
[facility] overall deconditioning and tenuous respiratory status.
Unfortunately she has not been able to tolerate CPAP
Counseled about tobacco smoking
Would be appropriate for palliative care consult
Original Note:
Today's Communication/Plan
-
Discharge pending to SNF [facility].
Assessment / Plan
Assessment / Plan
IMPRESSION:
This is a 73 y/o patient who presented with SOB (O2 low in 60s at home) and persistent lower back pain.
PLAN:
#Acute on Chronic Hypoxic Respiratory Failure
-Continue O2 supplementation as needed
-Negative sputum culture on 02/18
-CXR on 02/18 showed no acute cardiopulmonary process.
-Continue Duoneb Q4hr and prn, Mucinex and Claritin
-Discontinued IV decadron
-Oral pred 50mg started by pulmonology
-Prednisone taper upon discharge
-discharge pending on SNF availability to [facility]
#History of Chronic HFrEF
-Monitor daily weights, IOs
-Fluid restriction <2L
-Continue Lasix 40mg PO
#Lower Back Pain
-MRI back done on 01/20/2024 showing mild compression fracture of the L2 superior endplate
-Oxycodone 5mg prn and IV dilaudid prn
-PT/OT following
#Parasomnias
-continued melatonin by pulmonology
#CKD3b
-serum creatinine is at baseline
-stable, monitor BMP
DVT:HSQ Q8h
Full Code
Anticipated Discharge: 24 - 48 hours
Subjective/Interval History
-
Date of Service: February 24, 2024
Objective Data
-
Labs:
Laboratory Results
02/24/24
06:54
WBC 18.1 H
Hgb 11.2 L
Hct 36.0 L
Plt Count 338
Sodium 136
Potassium 4.5
Chloride 101
Carbon Dioxide 28
BUN 41 H
Creatinine 1.3 H
Glucose 116 H
Calcium 9.6
Vital Signs:
Vital Signs
Temp Pulse Resp BP Pulse Ox
97.5 F 78 20 121/63 94
02/24/24 07:55 02/24/24 09:05 02/24/24 07:55 02/24/24 09:05 02/24/24 09:01
I&O
02/23/24 02/24/24 02/25/24
06:59 06:59 06:59
Intake Total 1230 / 1230 1080 / 1080
Output Total 1350 / 1350
Balance -120 / -120 1080 / 1080
Review of Systems
-
History Source: Patient
All other systems: Reviewed and negative
Physical Exam
-
General: No Apparent Distress
HEENT: Normocephalic
Respiratory: Wheezes (mild bilateral)
Cardiac: Regular Rhythm and S1/S2; Negative Murmur
GI: Soft, Nontender and Nondistended
Musculoskeletal: No Edema
Neuro: Awake, Alert and Oriented
Psych: Intact Judgement/Insight
[2024-02-24 12:55] VITALS: BP 94/56; PULSE 80; O2SAT 98
--- NOTE | 2024-02-24 15:28 | CM ---
SPoke with Elvi Garvin bed available Sat.
Spoke with patient she is aware of bed tomorrow and that [place] [facility] has a Covid case as per Elvi Garvin.
Maintained on 3 liter oxygen POX 93%.Oxygen with [employer].
Family will transport.
[facility] [phone]
report [phone]

PLAN To [place] tomorrow.
[2024-02-24 15:53] VITALS: BP 123/63
--- NOTE | 2024-02-24 15:58 | PTCARENOTE ---
Pt AAO x3, MARTINEZ; OOB to chair/ambulatory to BR with assist x1; reshma OOB activity but tires quickly. VSS. Maintained on nc 3 lpm- pulse ox 94%, pt denies SOB at rest but has (+) MENENDEZ/tachypnea with any activity. Abd obese, oft, reshma PO, appetite fair.
Pt voided large amt urine in BR; also incont large amts yellow urine when in bed. Resting in chair at present, no c/o. Will continue to monitor.
[2024-02-24] MEDS: MELATONIN 10 MG PO (22:04)
[2024-02-24] MEDS: ROXICODONE 5 MG PO (22:05)
[2024-02-24 23:55] VITALS: BP 116/79
[2024-02-25] MEDS: TYLENOL 650 MG PO ×2 (00:07→10:11)
[2024-02-25] MEDS: TYLENOL PO ×2 (04:06→12:13)
[2024-02-25 06:00] VITALS: BMI 37.2
[2024-02-25] MEDS: DUONEB 3 ML INH ×2 (07:27→11:17)
[2024-02-25 07:30] VITALS: BP 126/56
[2024-02-25] MEDS: CLARITIN 10 MG PO (10:09)
[2024-02-25] MEDS: FLEXERIL 5 MG PO (10:09)
[2024-02-25] MEDS: LASIX 40 MG PO (10:10)
[2024-02-25] MEDS: DELTASONE 50 MG PO (10:10)
[2024-02-25] MEDS: DESENEX/MITRAZOL/ZEASORB 1 APPLIC TOPICAL (10:10)
[2024-02-25] MEDS: MUCINEX 600 MG PO (10:10)
[2024-02-25] MEDS: SENOKOT 17.1999999999999993 MG PO (10:11)
[2024-02-25] MEDS: COLACE 100 MG PO (10:11)
[2024-02-25] MEDS: HEPARIN 5000 UNITS SC (10:12)
[2024-02-25] MEDS: LIDOCAINE 4% PATCH TOPICAL (10:12)
[2024-02-25] MEDS: FLUSH (NSS) 1 FLUSH IV (10:13)
--- NOTE | 2024-02-25 10:53 | W.PN.HOSP.TC ---
Today's Communication/Plan
-
DC to SNF
Outpatient pulm follow-up
Assessment / Plan
Assessment / Plan
IMPRESSION:
This is a 73 y/o patient who presented with SOB (O2 low in 60s at home) and persistent lower back pain.
PLAN:
#Acute on Chronic Hypoxic Respiratory Failure likely suspected combination of acute on chronic COPD exacerbation and
-Continue O2 supplementation as needed
-Negative sputum culture on 02/18
-CXR on 02/18 showed no acute cardiopulmonary process.
-Continue Duoneb Q4hr and prn, Mucinex and Claritin
-Discontinued IV decadron
-Oral pred 50mg started by pulmonology
-Prednisone taper upon discharge
Leukocytosis secondary to steroids
Remains afebrile.
#Chronic HFrEF
-Monitor daily weights, IOs
-Fluid restriction <2L
-Continue Lasix 40mg PO
#Lower Back Pain
-MRI back done on 01/20/2024 showing mild compression fracture of the L2 superior endplate
-Oxycodone 5mg prn and IV dilaudid prn
-PT/OT following
#Parasomnias
-continued melatonin by pulmonology
#CKD3b
-serum creatinine is at baseline
-stable, monitor BMP
DVT:HSQ Q8h
Full Code
More than 30 minutes spent in discharge including
Final examination of the patient
Summarizing hospital stay
Instructions for continuing care to all relevant caregivers
Preparation of discharge records, prescriptions, and referral forms
Total time spent (in minutes): 45
Anticipated Discharge: Today
Subjective/Interval History
-
Date of Service: February 25, 2024
Patient stated breathing is significantly improved
States of significant improvement in edema
Objective Data
-
Vital Signs:
Vital Signs
Temp Pulse Resp BP Pulse Ox
98 F 74 20 126/56 96
02/25/24 07:30 02/25/24 07:30 02/25/24 07:30 02/25/24 07:30 02/25/24 07:30
I&O
02/24/24 02/25/24 02/26/24
06:59 06:59 06:59
Intake Total 1080 / 1080 1640 / 1640
Balance 1080 / 1080 1640 / 1640
Physical Exam
-
General: No Apparent Distress
HEENT: Normocephalic and Oxygen
Respiratory: Clear to Auscultation
Cardiac: Regular Rhythm and S1/S2; Negative Murmur
GI: Soft, Nontender and Nondistended
Musculoskeletal: No Edema
Neuro: Awake, Alert, Oriented and AO x 3
Psych: Calm and Intact Judgement/Insight
--- NOTE | 2024-02-25 10:56 | CM ---
Addendum entered by Alley Veras 02/25/24 10:58:
report [phone]

Original Note:
Patient seen at bedside. Patient for transfer to [facility] today. CM confirmed plan with patient and nurse. CM spoke with nursing at [facility] and they are aware of plan for transfer. Patient room in process of being cleaned per CHRISTOPHE West on 4th floor. CM
will continue to follow for discharge planning needs.
Plan; transfer to [facility]
--- NOTE | 2024-02-25 11:01 | W.DCSUMMARY ---
Discharge Summary
Discharge Data
Date of Admission: 02/19/24
Date of Discharge: 02/25/24
-
Pending Results: No
Hospital Course
73 female past medical history of COPD, chronic hypoxic respiratory insufficiency, chronic HFrEF, chronic back pain, obstructive sleep apnea, tobacco abuse, CKD, anxiety, depression, morbid obesity due to excess calories, who is presenting from home
with shortness of breath. Patient with multiple prior admission with shortness of breath due to COPD exacerbation. Pulmonary was consulted. Patient was started on IV Decadron. Patient with improvement in shortness of breath. Patient was
continued on bronchodilators. Patient with slow improvement. Patient was continued on diuretics. Patient was seen by physical and Occupational Therapy. [facility] be [facility] facility.
Discharge Plan
-
Discharge Diagnosis/Procedures: Acute Exacerbation of COPD
Condition: Good
Diet: Low Sodium
Activity: With assistance and As tolerated
Driving Restrictions: As prior to admission
Referrals:
Ant Diaz DO [Family Provider] - in less than 1 week
Nimesh Pierce MD [Active] - in two to three weeks
Prescriptions:
New
docusate sodium 100 mg Capsule
100 mg PO BID Qty: 30 0RF
cyclobenzaprine 10 mg Tablet
5 mg PO TID Qty: 30 0RF
melatonin 5 mg Tablet
10 mg PO HS Qty: 30 0RF
guaifenesin 600 mg Tablet Extended Release 12hr
600 mg PO Q12 Qty: 30 0RF
oxycodone 5 mg Tablet
5 mg PO Q4HPRN PRN (Reason: moderate pain) Qty: 14 0RF
prednisone 10 mg tablet
10 mg PO DIRECTED Qty: 90 0RF
Rx Instructions:
Start with 40 mg and decrease by 10mg every 4 days
Continued
Claritin-D 12 Hour 5-120 mg Tablet Extended Release 12 Hr
1 tab PO DAILY
albuterol sulfate 90 mcg/actuation HFA aerosol inhaler
2 puff INHALATION R Q4HPRN PRN (Reason: sob/wheezing)
sertraline 25 mg tablet
100 mg PO DAILY
bupropion HCl 300 mg tablet extended release 24 hr
300 mg PO DAILY
acetaminophen [Tylenol] 325 mg Tablet
650 mg PO Q6H PRN (Reason: mild pain)
ipratropium-albuterol 0.5 mg-3 mg(2.5 mg base)/3 mL Solution For Nebulization
3 ml INHALATION R QID
Patient Comments:
10/28/2023, patient states that they alternate this medication with their albuterol sulfate 0.083% solution for nebulization BID.
albuterol sulfate 2.5 mg /3 mL (0.083 %) Solution For Nebulization
2.5 mg INHALATION R QID
Patient Comments:
10/28/2023, patient states that they alternate this medication with their Ipratropium Albuterol 0.5mg/3mg BID.
Breztri Aerosphere 160-9-4.8 mcg/actuation HFA aerosol inhaler
2 inh INHALATION R BID
furosemide 40 mg tablet
40 mg PO DAILY
lidocaine 4 % adhesive patch,medicated
1 patch topical DAILY
Rx Instructions:
lower back
Discontinued
guaifenesin [Mucus Relief ER] 600 MG tablet extended release 12hr
600 mg PO BID
prednisone 20 mg tablet
20 mg PO DAILY
Hold Instructions: Resume on 02/02/24. Restart after completion of prednisone taper
prednisone 10 mg tablet
10 mg PO DIRECTED
Rx Instructions:
Take [id number] then [id number] then continue 20mg till pulm eval in office.
Discharge Orders:
Discharge Patient (As Directed); Ordered 02/25/24
Ordered By: John Mckeon
Discharge Date and Time
Print Language: SETSWANA
[2024-02-25 11:20] VITALS: BP 107/55
--- NOTE | 2024-02-25 12:44 | W.PN.PUL3 ---
Today's Communication / Plan
-
Slow prednisone taper
Continue airway clearance measures, encourage cough
Weight loss, positional therapy
Noncompliant with pulmonary follow-up
High risk for recurrent symptoms
Disposition efforts
Assessment
-
Patient is a 73-year-old female patient with a history of underlying COPD on 2 L of oxygen, frequent admissions for similar, followed by Dr. Sher, obstructive sleep apnea CPAP intolerant who is an active smoker with chronic heart failure preserved
EF and renal insufficiency presented with acute on chronic shortness of breath and persistent lower back pain. [facility]. She is not sure what triggered her symptoms. proBNP >700 increased from prior, CXR showing no
acute process. We are consulted for eval 02/20/24.
COPD with acute exacerbation
Suspected comorbid acute HFpEF exacerbation
Acute on chronic SOB
Obesity (BMI: 37)
Leukocytosis--improving from prior admission
Hyperglycemia
Insomnia, likely steroid induced
Conditions present prior to admission:
Repetitive hospitalizations for COPD exacerbation-December, April, July, August, September 2023
Syncope admission August 2020-found minimally responsive, septic shock, left lower extremity fasciitis requiring mechanical ventilation
s/p extensive surgical debridement and wound VAC for 10 months
COPD oxygen dependent 2 L.
Active smoker.
Covid illness September 2023
Obstructive sleep apnea/CPAP intolerant.
Chronic heart failure preserved EF.
Chronic kidney disease stage III.
Anxiety/depression.
Obesity.
Sciatica.
Prior lumbar fracture.
Left lower extremity fasciitis.
Hyponatremia.
Renal calculi.
Cataract. Carpal tunnel release. Cholecystectomy 1975. Shoulder surgery 1992.
Plan
At this time, patient appears to be comfortable
Mild wheezing on exam noted,
Frequent admission for AECOPD, needed readmission within 1 month from discharge
She has been admitted for AECOPD 6x in the last year: 01/24/24, 11/01/23, 08/21/23, 07/27/23, 01/11/23; prior to this: 05/11/22
Last seen in our office in Aug but has not been FU consistently
Supplemental oxygen as needed-baseline use 2-3L
She has a portable oxygen concentrator at home
Outpatient follow up with our office will be arranged for 6MWT--she has yet to FU since last admission
PO steroids, taper slowly at discharge
Continue with Spiriva and Symbicort 160mcg
Nebulized albuterol QID with prn DuoNebs q4hr
Continue Mucinex 600 twice daily
Incentive spirometry
Acapella
Airway clearance measures will need to continue
Cultures reviewed
Sputum culture obtained on 01/22 -- insufficient sample
Repeat as able
Infection less likely, WBC trending down from last admission
Observe off abx
Continue with diuresis as tolerated, proBNP >700
CHF component
Monitor renal function, weight, lower extremity edema and electrolytes
Diuresis per team
MRI back 01/20/2024 w/ Mild compression fracture of the L2 superior endplate, acute or subacute.
Minimal retropulsion but no secondary spinal canal stenosis.
Outpatient spine eval
She feels her pain is not adequately addressed
Smoking cessation counseling provided
Multiple times throughout hospital stay
Insomnia noted, decrease steroids
Continue melatonin, will increase dose for parasomnias
DVT prophylaxis recommended: HSQ q8hr unless pt at risk for bleeding
GI prophylaxis recommended if on steroids for prolonged period
Early nutrition
Early mobilization
She is currently residing with her daughter in her living room as her home is in [place].
She has not yet been able to go home in the past year due to frequent admissions.
She does admit that her quality of life is very poor.
She was open to palliative consult, we will place
Outpatient pulmonary [id number] locally or down in [place]-has seen Dr. Roque locally- Last seen 08/29/2023
Has yet to FU due to frequent exacerbations
Dispo
Diagnostic Data
��
CXR 06/25/22: mild cardiomeg suggestive of elevated pulm venous pressures, no acute evidence of PNA, suspect mild symmetric subpleural inflammatory interstitial pneumonitis.�������
CXR 05/04/22: cardiomegaly with prominent vascularity suggesting CHF�������
CXR 01/02/23- No focal interstitial or airspace opacity.�����
Chest x-ray 10/28/2023-NAD
Chest x-ray 01/18/2024-pulmonary vascularity at top normal
Chest x-ray 01/24/2024- Chronic obstructive pulmonary disease; No superimposed acute abnormalities
CT abdomen and pelvis 01/14/2024-mild atelectasis at lung bases, small bullae left lung base without pneumothorax, no evidence for intestinal obstruction
US LLE 11/09/19: no evidence of DVT.
ECHO 01/03/23- Low-normal LV function, EF 50%. no significant valvular disease.
Echocardiogram 08/18/2023-EF 50-55%, mild aortic regurgitation
Gino 06/01/22: FVC 1.63/77%, FEV1 0.98/62%, ratio 60%, no significant BD response. Moderate obstruction and suggestive of mild restrictive pattern.
PFTs 07/02/22: FEV1 1.25L 54%, FVC 2.09L 68%, ratio 60. Post FEV1 1.32L 57%. No significant bronchodilator response. TLC 4.34L 84%, DLCO 50% (moderate obstruction, normal volumes, moderate diffusion impairment)�������
Subjective Data
-
Date of Service:
Date of Service: February 25, 2024
Chief Complaint: Pulmonary Follow Up
Subjective:
Patient seen and examined earlier this morning. Sleeping comfortably, did not awaken fully during exam
Objective Data
Data Reviewed
Vital Signs / I&O / Oxygen:
Vital Signs
Temp Pulse Resp BP Pulse Ox
98 F 87 20 107/55 98
02/25/24 11:20 02/25/24 11:20 02/25/24 11:20 02/25/24 11:20 02/25/24 11:20
Intake and Output
02/24/24 02/25/24 02/26/24
06:59 06:59 06:59
Intake Total 1080 / 1080 1640 / 1640
Balance 1080 / 1080 1640 / 1640
SaO2 98
Nasal Cannula flow liters per 3
minute
Physical Exam
General: Comfortable and Other (NAD)
HEENT: Normocephalic and Moist Mucous Membranes
Cardiovascular: S1-S2, Regular Rhythm, Murmur (n) and Rub (n)
Respiratory: Wheeze (Mild expiratory), Rhonchi (Few) and Non-Labored Respirations
GI: Soft, Non Distended (Obese) and Non Tender
Neurology: No Motor Deficits (Spontaneously moves extremities) and Lethargic (Sleeping comfortably)
Skin: Warm, Cyanosis (n) and Rash (n)
Labs/Micro/Reports
Lab Data
02/24/24 06:54
02/24/24 06:54
== END 2024-02-25 14:42 | DRG 190 ==
LOC: 4 EAST ACU 22:07
PROVIDERS: Clinical Nurse Specialist Family Health; Student in an Organized Health Care Education/Training Program; ADMITTING PHYSICIAN Internal Medicine; ATTENDING PHYSICIAN Hospitalist; CONSULT PHYSICIAN Internal Medicine Critical Care Medicine; EMERGENCY PHYSICIAN Emergency Medicine; FAMILY PHYSICIAN Family Medicine
DX: J44.1 Chronic obstructive pulmonary disease with (acute) exacerbation (principal); I50.23 Acute on chronic systolic (congestive) heart failure; G47.33 Obstructive sleep apnea (adult) (pediatric); N18.32 Chronic kidney disease, stage 3b; R09.02 Hypoxemia; F17.200 Nicotine dependence, unspecified, uncomplicated; F41.9 Anxiety disorder, unspecified; F32.A Depression, unspecified; E66.01 Morbid (severe) obesity due to excess calories; N28.9 Disorder of kidney and ureter, unspecified; Z68.37 Body mass index [BMI] 37.0-37.9, adult
CPT/HCPCS: 71046; 80048; 83880; 85025; 87502; 93005; 94640; 96374; 97163; 97166; 97530; 97535; 99285

== ENCOUNTER → 2024-02-27 08:50 | Outpatient (REF) | payer MEDICARE, SELFPAY ==
[2024-02-27 09:43] LABS: % Basophils 0.6 % (0-2); % Eosinophils 0.4 % (0-6); % Immature Granulocytes 7.5 % (0-0.5); % Lymphocytes 14.5 % (20.5-51.1); Absolute Basophils 0.1 10^3/uL (0-0.2); Absolute Eosinophils 0.1 10^3/uL (0-0.7); Absolute Immature Granulocytes 1.7 10^3/uL (0-0.05); Absolute Lymphocytes 3.3 10^3/uL (1.2-3.4); Absolute Monocytes 1.4 10^3/uL (0.1-0.6); Absolute Neutrophils 16.3 10^3/uL (1.4-6.5); Hematocrit 37.1 % (37.0-47.0); Hemoglobin 11.6 g/dL (12.0-16.0); Mean Corp Hgb Conc. 31.3 g/dL (33.0-37.0); Mean Corpuscular Hgb 30.3 pg (27.0-31.0); Mean Corpuscular Volume 96.9 fL (81.0-99.0); Mean Platelet Volume 9.4 fL (7.4-10.4); Nucleated Red Blood Cells % 0 %; Platelet Count 415 10^3/uL (130-400); Red Blood Cell Count 3.83 10^6/uL (4.20-5.40); Red Cell Dist. Width 13.2 % (11.5-14.5); White Blood Cell Count 22.9 10^3/uL (4.8-10.8)
[2024-02-27 09:57] LABS: Blood Urea Nitrogen 44 mg/dl (7-17); Calcium 9.1 mg/dl (8.4-10.2); Carbon Dioxide 30 mmol/L (22-30); Chloride 99 mmol/L (98-107); Glucose 76 mg/dl (70-99); Potassium 4.1 mmol/L (3.5-5.1); Sodium 134 mmol/L (135-145); eGFR 36.57
== END ==
LOC: OLABP 08:50
PROVIDERS: ATTENDING PHYSICIAN Student in an Organized Health Care Education/Training Program
DX: J44.1 Chronic obstructive pulmonary disease with (acute) exacerbation (principal); I50.31 Acute diastolic (congestive) heart failure; N18.30 Chronic kidney disease, stage 3 unspecified; S32.020D Wedge compression fracture of second lumbar vertebra, subsequent encounter for fracture with routine healing
CPT/HCPCS: 36415; 80048; 85025

== ENCOUNTER 2024-03-14 21:59 | Inpatient (IN) | payer MEDICARE, SELFPAY ==
[2024-03-14 18:20] VITALS: BP 125/68
[2024-03-14 18:24] VITALS: BMI 38.3
[2024-03-14 19:00] VITALS: BP 100/66
[2024-03-14 19:19] LABS: % Basophils 0.5 % (0-2); % Eosinophils 3.4 % (0-6); % Lymphocytes 17.8 % (20.5-51.1); % Monocytes 6.5 % (1.7-9.3); % Neutrophils 69.8 % (42.2-75.2); Absolute Basophils 0.1 10^3/uL (0-0.2); Absolute Eosinophils 0.5 10^3/uL (0-0.7); Absolute Immature Granulocytes 0.3 10^3/uL (0-0.05); Absolute Lymphocytes 2.4 10^3/uL (1.2-3.4); Absolute Monocytes 0.9 10^3/uL (0.1-0.6); Absolute Neutrophils 9.5 10^3/uL (1.4-6.5); Hematocrit 37.1 % (37.0-47.0); Hemoglobin 12.1 g/dL (12.0-16.0); Mean Corp Hgb Conc. 32.6 g/dL (33.0-37.0); Mean Corpuscular Hgb 30.3 pg (27.0-31.0); Mean Corpuscular Volume 92.8 fL (81.0-99.0); Mean Platelet Volume 9.7 fL (7.4-10.4); Nucleated Red Blood Cells % 0 %; Platelet Count 253 10^3/uL (130-400); Red Cell Dist. Width 13.3 % (11.5-14.5); White Blood Cell Count 13.7 10^3/uL (4.8-10.8)
[2024-03-14 19:24] LABS: ALT (SGPT) 24 U/L (0-35); AST (SGOT) 21 U/L (14-36); Albumin 3.6 g/dl (3.5-5.0); Alkaline Phosphatase 123 U/L (38-126); Blood Urea Nitrogen 29 mg/dl (7-17); Calcium 9.2 mg/dl (8.4-10.2); Carbon Dioxide 31 mmol/L (22-30); Chloride 96 mmol/L (98-107); Estimated Creatinine Clearance 42 ml/min; Glucose 146 mg/dl (70-99); Potassium 3.3 mmol/L (3.5-5.1); Sodium 134 mmol/L (135-145); Total Bilirubin 0.5 mg/dl (0.2-1.3); Total Protein 6.7 g/dl (6.3-8.2); eGFR 33.84
[2024-03-14 19:25] LABS: Lactic Acid 2.7 mmol/L (0.7-2.0)
[2024-03-14 19:43] LABS: NT-proBNP 1040 pg/ml; Troponin I 0.056 ng/ml
[2024-03-14 20:00] VITALS: BP 110/74
--- NOTE | 2024-03-14 20:06 | ED.GENMED ---
History of Present Illness
General
Chief Complaint: Breathing Problem
Source: patient, records and ambulance crew
Exam Limitations: none
Time Seen by Provider: 03/14/24 19:08
Nursing documentation reviewed up to this point in time: agreed with
Travel History
Have you had any contact with someone who has COVID-19?: No
Do you have any symptoms of coronavirus? Fever > 100 degrees, chills, cough, shortness of breath, sore throat, loss of taste or smell, muscle aches, or headache?: No
History of Present Illness
History of Present Illness:
73-year-old female with a past medical history of COPD, chronic respiratory failure on 2 to 3 L of home oxygen, congestive heart failure, morbid obesity who presents to the emergency department via EMS for evaluation of shortness of breath. Patient
reports onset of symptoms over the past 48 hours�she says that she woke up this morning symptoms were much worse. She reports shortness of breath at rest, worse with exertion, worse with lying flat. She reports mild associated cough. She has not
noticed any edema in her legs but she says she has noticed abdominal wall edema which is more typical for her when she has exacerbations of her CHF. She denies any fevers or chills. She denies any other complaints. She reports compliance with all
medications. Was notably admitted for COPD exacerbation and acute on chronic respiratory failure about a month ago. She recently moved from [place], has not yet established care with a barn operator here.
Past History
Past History
ED Past Medical History: CHF, COPD (2-3 liters NC), Psychiatric (Anxiety, Depression, ) and Other (Spinal stenosis, morbid obesity, Bilateral kidney stones, Ulcers)
ED Past Surgical History: Cholecystectomy, Orthopedic (Left shoulder reconstruction. ) and Other (Fasciotomy for fasciitis with wound VAC of lower back and thigh)
Social History
Tobacco: Former smoker
Alcohol: None
Drug: None
Personal:
Living: with family
Employment: Retired
Family History
Family History: Other (Noncontributory)
Review of Systems
Review of Systems
All Other Systems: ROS reviewed and negative except as documented in HPI and ROS
Constitutional: Denies fever or chills
EENT: Denies sore throat
Respiratory: Reports cough and trouble breathing
Cardiac: Denies chest pain or palpitations
ABD/GI: Denies abdominal pain, nausea, vomiting or diarrhea
: Denies flank pain
Musculoskeletal: Reports edema (Abdominal wall); Denies neck pain or back pain
Neurological: Denies dizzy or headache
Phy Exam
Physical Exam
Physical Exam:
General: Awake, alert, oriented x3; no acute distress
Head: Normocephalic, atraumatic
Eyes: Conjunctiva normal, EOMI
Throat: Airway intact, handling secretions
Neck: Trachea midline, supple without meningismus
Lungs: Faint rales scattered bilaterally; tachypnea, hypoxia to 81% on 2 L nasal cannula�improved with 6 L nasal cannula to 90-92%
Heart: Tachycardia with regular rhythm, no murmurs, gallops, or rubs
Abd: Soft, non distended, nontender; faint abdominal wall edema
Neuro: Cranial nerves grossly intact, speech fluid
Skin: no rash
Extremities: Trace edema around the ankles bilaterally; distal extremities warm well-perfused
Scores
Heart Failure Risk
Heart Failure Risk Score: Yes
History of Stroke or TIA: No
History of intubation for respiratory distress: No
Heart rate on ED arrival >/= 110: No
SaO2 <90% on arrival on room air: Yes
HR >/=110 during 3min walk test (or too ill to perform test): Yes
ECG has acute ischemic changes: No
Urea >/=12mmol/L (BUN 33.6mg/dL): No
Serum CO2>/=35mmol/L: No
Troponin I or T elevated to [place] Level (0.4mg/dL): No
NT-proBNP >/=5,000ng/L (5,000pg/ml): No
HF Risk Score: 3
Admission Status: HIGH RISK 15.9% Consider SNF treatment or admission to hospital
Heart Score for Chest Pain Patients
STEMI patient?: Not applicable
Withdrawal Assessment of Alcohol
Withdrawal Assessment Completed?: Not applicable
Course
Orders/Labs/Results
Orders:
Orders
03/14/24 18:28
EKG [Electrocardiogram (*1)] Urgent
Reason for Study: Shortness of Breath
03/14/24 18:29
EKG- Treatment ONCE
03/14/24 18:31
Complete Blood Count/With Diff Urgent
Comprehensive Metabolic Panel Urgent
Lactic Acid Urgent
NT-proBNP Urgent
Troponin I Urgent
Blood Culture Q30M
ALLI Source: Blood/Venous
Specimen Description:
Blood Culture Q30M
ALLI Source: Blood/Venous
Specimen Description:
03/14/24 18:46
Cr Chest Portable [CR Chest Portable - 1 View] Urgent
Comment:
Reason For Exam: SOB
Reason Study Needs to be Portable: Patient Unstable
03/14/24 20:05
Furosemide [Lasix] 40 mg IV NOW STA
Potassium Chloride [KCl] 40 meq PO NOW STA
Abnormal Lab Results
03/14/24
18:31
WBC 13.7 H 10^3/uL
(4.8-10.8)
RBC 4.00 L 10^6/uL
(4.20-5.40)
MCHC 32.6 L g/dL
(33.0-37.0)
Abs Immat Gran (auto) 0.3 H 10^3/uL
(0-0.05)
Absolute Neuts (auto) 9.5 H 10^3/uL
(1.4-6.5)
Absolute Monos (auto) 0.9 H 10^3/uL
(0.1-0.6)
Immature Gran % 2.0 H %
(0-0.5)
Lymphocytes % 17.8 L %
(20.5-51.1)
Sodium 134 L mmol/L
(135-145)
Potassium 3.3 L mmol/L
(3.5-5.1)
Chloride 96 L mmol/L
(98-107)
Carbon Dioxide 31 H mmol/L
(22-30)
BUN 29 H mg/dl
(7-17)
Creatinine 1.6 H mg/dL
(0.6-1.0)
Glucose 146 H mg/dl
(70-99)
Lactic Acid 2.7 H mmol/L
(0.7-2.0)
Troponin I 0.056 H* ng/ml
03/14/24 18:31
03/14/24 18:31
Vital Signs
Initial and Last Documented VS:
Initial Vital Signs
Temp Pulse Resp BP Pulse Ox
36.9 C 103 26 125/68 90
03/14/24 18:20 03/14/24 18:20 03/14/24 18:20 03/14/24 18:20 03/14/24 18:20
Last Documented Vital Signs
Temp Pulse Resp BP Pulse Ox
36.9 C 103 26 110/74 94
03/14/24 18:20 03/14/24 18:20 03/14/24 18:20 03/14/24 20:00 03/14/24 20:02
MDM/Problems Addressed
Differential Diagnosis Includes:
CHF exacerbation, COPD exacerbation, pneumonia
MDM/Problems Addressed:
73-year-old female with history as documented presents for evaluation of worsening shortness of breath and coughing over the past 2 days, increasing hypoxia. She arrives to us tachycardic, tachypneic, hypoxic�oxygen increased to 6 L with
improvement in oxygenation. Physical exam as above. Plan placed on IV send labs including CBC and CMP; with multiple SIRS will send lactate and blood cultures although suspect more likely CHF than infectious etiology. Will send troponin and BNP.
Check stat chest x-ray and EKG. Monitor closely reassess after the above.
Labs reviewed: CBC shows slight leukocytosis to 13.7, no anemia. CMP shows creatinine 1.6 which is stable; shows hypokalemia 3.3 which we will replete p.o. Marginally elevated troponin, BNP elevated at 1000 suspect in the setting of acute CHF
exacerbation. Chest x-ray reviewed by me shows pulmonary edema. Plan to treat with IV Lasix pending potassium repletion. Will admit for continued management of acute on chronic respiratory failure with hypoxia secondary to CHF exacerbation. Case
discussed with hospitalist for admission.
Chronic conditions affecting care:
CHF, COPD, chronic respiratory failure
Acute Exacerbation and/or Progression of Chronic Illness:
Acute on chronic respiratory failure managed with oxygen
Acute CHF exacerbation managed with IV Lasix
*Radiology
Radiology exam reviewed: preliminary read by ED provider (Pulmonary edema)
*Pulse Oximetry
Patient hypoxic: yes
*EKG
Interpreted by ED Provider?: Yes
Heart Rate: 97
Rate: normal
Rhythm: sinus
[place]: normal axis
Interval: normal interval
QRS Pattern: normal QRS
Ischemia: no ischemia
*Critical Care Note
Total Time (30-74mins, 75-104mins- exclusive of procedures): 31
comment:
Critical care statement: A total of 31 minutes of critical care time was provided for this patient. This includes management of unstable vital signs, evaluation of the patient at bedside, frequent reassessment, discussion with
consultants/hospitalist, and review of pertinent medical records. This time was separate from time utilized to perform any aforementioned documented procedures
Data Reviewed
Review of Other/Old Records Reveals: Labs, Records and Discharge Summary
Source: patient, records and ambulance crew
Patient Management
Discussion with other providers: Hospitalist (Discussed with hospitalist)
Escalation/DeEscalation of care consider admission/obs:
Admission indicated
ED Attending Note
-
Portions of this chart may have been created with voice recognition software.� Occasional wrong word or��sound alike� substitutions may have occurred due to the inherent limitations of voice recognition software.
Discharge Plan
Departure
Date of Disposition: 03/14/24
Time of Disposition: 20:14
Admit to doctor: Crescencio
Presentation/result/management discussed w/ accepting MD/DO: Hospitalist
Prescriptions:
No Action
Claritin-D 12 Hour 5-120 mg Tablet Extended Release 12 Hr
1 tab PO DAILY
albuterol sulfate 90 mcg/actuation HFA aerosol inhaler
2 puff INHALATION R Q4HPRN PRN (Reason: sob/wheezing)
sertraline 25 mg tablet
100 mg PO DAILY
bupropion HCl 300 mg tablet extended release 24 hr
300 mg PO DAILY
acetaminophen [Tylenol] 325 mg Tablet
650 mg PO Q4HPRN PRN (Reason: mild pain)
ipratropium-albuterol 0.5 mg-3 mg(2.5 mg base)/3 mL Solution For Nebulization
3 ml INHALATION R QID
Breztri Aerosphere 160-9-4.8 mcg/actuation HFA aerosol inhaler
2 inh INHALATION R BID
furosemide 40 mg tablet
40 mg PO DAILY
lidocaine 4 % adhesive patch,medicated
1 patch topical DAILY
docusate sodium 100 mg Capsule
100 mg PO BID Qty: 30 0RF
cyclobenzaprine 10 mg Tablet
5 mg PO TID Qty: 30 0RF
melatonin 5 mg Tablet
10 mg PO HS Qty: 30 0RF
guaifenesin 600 mg Tablet Extended Release 12hr
600 mg PO Q12 Qty: 30 0RF
oxycodone 5 mg Tablet
5 mg PO Q4HPRN PRN (Reason: moderate pain) Qty: 14 0RF
magnesium hydroxide [Milk of Magnesia] 400 mg/5 mL Suspension
2,400 mg PO DAILYPRN PRN (Reason: IF NO BM BY 4TH DAY)
bisacodyl [Dulcolax (bisacodyl)] 10 mg Suppository
10 mg NV DAILYPRN PRN (Reason: CONSTIPATION)
Interventions
Interventions:
*Risk Screen - Suicide Last Done: 03/14/24 18:20
*General Assessment Last Done: 03/14/24 18:20
*Neglect/Abuse Screening Last Done: 03/14/24 18:20
ED- Fall Risk Assessment Last Done: 03/14/24 18:42
ED- Cardiac Assessment Last Done: 03/14/24 18:42
ED- Pulmonary Assessment Last Done: 03/14/24 18:42
Discharge Date and Time
Print Language: LATVIAN
[2024-03-14] MEDS: KCL 40 MEQ PO (20:14)
[2024-03-14] MEDS: LASIX 40 MG IV (20:14)
--- NOTE | 2024-03-14 20:24 | HPS.HSE ---
Addendum entered and electronically signed by Nicholas Larson MD 03/14/24 21:05:
Seen with PA.
Original Note:
Family Physician
-
Family Physician: Ant Diaz
Chief Complaint
-
Shortness of Breath
History of Present Illness
Patient is a 73 y/o female past medical history of chronic hypoxia, COPD, CHF, CKD and anxiety who presents with increased dyspnea on exertion. Patient reports increased shortness of breath over the last few fdyas mostly with dyspnea on exertion
and orthopnea. Patient was noted to be persistently hypoxic after her usual breathing treatments and thus she was sent to the emergency department for evaluation. She denies increased lower extremity edema but states her abdomen in more distended
than usual which occurs when she has fluid retention.
Medical History
Past Medical History
Past Medical History: Reports Other
Additional Past Medical History:
Chronic Hypoxic Respiratory Insufficiency
COPD
Chronic HFpEF
CKD Stage III
Chronic Back Pain secondary to L2 Compression Fracture
Anxiety/Depression
Morbid Obesity
Obstructive Sleep Apnea
Past Surgical History: Reports Other
Additional Past Surgical History:
Cholecystectomy
Left Shoulder Reconstruction
Fasciotomy
Social History
Tobacco: Smoker
Living: Other (Currently receiving rehab at [facility])
Family History
Family History: Not pertinent
Allergies / Home Medications
Allergies reflects when Allergies were last updated in [facility].
Home Medications with original date entered in [facility]
Allergy/Medication List:
Allergies
Allergy/AdvReac Type Severity Reaction Status Date / Time
ampicillin Allergy Hives Verified 03/14/24 18:20
coconut Allergy Hives Verified 03/14/24 18:20
mustard Allergy Hives Verified 03/14/24 18:20
Home Medications
albuterol sulfate 90 mcg/actuation aerosol inhaler 2 puff inhalation R Q4HPRN PRN sob/wheezing 12/29/22
loratadine 5 mg-pseudoephedrine ER 120 mg tablet,extended release,12hr (Claritin-D 12 Hour) 1 tab PO DAILY Allergies 12/29/22
bupropion HCl 300 mg 24 hr tablet, extended release 300 mg PO DAILY Depression 07/19/23
sertraline 25 mg tablet 100 mg PO DAILY Depression 07/19/23
acetaminophen 325 mg tablet (Tylenol) 650 mg PO Q4HPRN PRN mild pain 10/28/23
ipratropium 0.5 mg-albuterol 3 mg (2.5 mg base)/3 mL nebulization soln 3 ml inhalation R QID Lung/Breathing Issues 10/28/23
budesonide 160 mcg-glycopyr 9 mcg-formot 4.8 mcg/actuation HFA inhaler (Breztri Aerosphere) 2 inh inhalation R BID Lung/Breathing Issues 01/18/24
furosemide 40 mg tablet 40 mg PO DAILY Fluid Retention/Swelling 02/20/24
lidocaine 4 % topical patch 1 patch topical DAILY LOWER BACK 02/20/24
cyclobenzaprine 10 mg tablet 5 mg (1/2 x 10 mg) PO TID #30 tabs 02/24/24
docusate sodium 100 mg capsule 100 mg PO BID #30 caps 02/24/24
guaifenesin 600 mg tablet, extended release 12 hr 600 mg PO Q12 #30 tabs 02/24/24
melatonin 5 mg tablet 10 mg (2 x 5 mg) PO HS #30 tabs 02/24/24
oxycodone 5 mg tablet 5 mg PO Q4HPRN PRN moderate pain #14 tabs 02/24/24
bisacodyl 10 mg rectal suppository (Dulcolax (bisacodyl)) 10 mg [place] DAILYPRN PRN CONSTIPATION 03/14/24
magnesium hydroxide 400 mg/5 mL oral suspension (Milk of Magnesia) 2,400 mg PO DAILYPRN PRN IF NO BM BY 4TH DAY 03/14/24
Review of Systems
-
A 12 point ROS was completed and negative except as noted: Yes
Constitutional: Denies Fever or Chills
Respiratory: Reports Trouble Breathing; Denies Cough
Cardiac: Denies Chest Pain or Palpitations
Physical Exam
Vital Signs
Vital Signs
Temp Pulse Resp BP Pulse Ox
98.4 F 103 26 110/74 94
03/14/24 18:20 03/14/24 18:20 03/14/24 18:20 03/14/24 20:00 03/14/24 20:02
Physical Exam
General: Comfortable and Conversant
HEENT: Anicteric, Moist mucous membranes and Oxygen (Nasal Cannula)
Respiratory: Rales (Faint at bilateral bases) and Decreased Breath Sounds (Poor Inspiratory Effort); No Wheezes
Cardiac: S1/S2 and Regular Rhythm; No Murmur
GI: Soft, Non Tender and Other (Protuberant)
Rectal: Deferred by Provider
Musculoskeletal: No Clubbing, No Cyanosis and No Edema
Skin: Warm and Dry
Neuro: Awake, Alert, Oriented and Nonfocal/grossly intact
Psych: Calm
Laboratory Results
-
03/14/24 18:31
03/14/24 18:31
Laboratory Results
Lactic Acid 2.7 mmol/L (0.7-2.0) H 03/14/24 18:31
Total Bilirubin 0.5 mg/dl (0.2-1.3) 03/14/24 18:31
AST 21 U/L (14-36) 03/14/24 18:31
ALT 24 U/L (0-35) 03/14/24 18:31
Alkaline Phosphatase 123 U/L (38-126) 03/14/24 18:31
Troponin I 0.056 ng/ml H* 03/14/24 18:31
Data Reviewed
-
Diagnostic Radiology: Report Reviewed by me
Lab Data: Labs Reviewed by me
Old Records: Reviewed
Impression/Plan
-
Acute on Chronic Hypoxic Respiratory Failure secondary to Acute Heart Failure
-Patient on 2L via nasal cannula at baseline
-Attempt to wean prior to discharge
Acute on Chronic HFpEF
-Consult Cardiology
-Continue Lasix
-Monitor Is&Os and Daily Weights
Elevated Troponin, likely Non-Ischemic Myocardial Injury in setting of heart failure
-Continue to trend
Leukocytosis
-Suspect related to recent steroids
-Continue to trend
Chronic Back Pain secondary to L2 Compression Fracture
-Continue Lidocaine Patch
-Continue Tylenol 1000mg TID with oxycodone prn for breakthrough pain
-Continue Flexeril
COPD, no acute exacerbation
-Will transition to Pulmicort neb during hospitalization
-Continue Duoneb QID and PRN
-Patient recently completed tapering coarse of prednisone
CKD Stage III
-Creatinine at baseline
-Monitor closely while on diuretics
Anxiety / Depression / Insomnia
-Continue melatonin
-Continue sertraline
Morbid Obesity
-Affects all aspects of care
Obstructive Sleep Apnea
-Patient is intolerant to CPAP
DVT proph: SC Heparin
Code Status: Full Code
--- NOTE | 2024-03-14 21:04 | W.PN.UPDATE ---
Update Note
Progress Note Update
This is an addendum to the H&P written by DANA Hernadez on 03/14/2024.
Patient seen and examined independently with PA. 73-year-old female past medical history of COPD on 2 L baseline, chronic HFpEF, obstructive sleep apnea not on CPAP, L2 compression fracture, kidney stones, active smoker, CKD 3, anxiety/depression,
obesity, sent in for hypoxia at [facility]. Patient with chronic back pain.
On examination patient has decreased air entry, slight crackles at the bases. No wheezing. Requiring 5 to 6 L oxygen at this time. Chest x-ray shows vascular congestion/interstitial edema. Cardiac BNP of 1000 from 700 previously. No weight
gain, no lower extreme edema although abdomen is more distended. Hypoxic respiratory failure secondary to acute on chronic HFpEF exacerbation. Labs show leukocytosis likely due to recent steroids for COPD. Potassium repletion. CKD stable.
Check daily weights, I's and O's, 40 IV Lasix daily. Cardiology consulted.
[2024-03-14 22:32] LABS: Lactic Acid 1.1 mmol/L (0.7-2.0)
[2024-03-14 22:49] VITALS: BMI 38.3
[2024-03-14] MEDS: FLEXERIL 5 MG PO (22:57)
[2024-03-14] MEDS: MELATONIN 10 MG PO (22:58)
[2024-03-14] MEDS: TYLENOL 1000 MG PO (22:58)
[2024-03-14] MEDS: HEPARIN 5000 UNITS SC (22:59)
[2024-03-14] MEDS: ROXICODONE 5 MG PO (23:06)
[2024-03-14 23:17] VITALS: BP 146/87; BMI 37.0
[2024-03-15] VITALS (8 sets, daily range): BP systolic 101–150; BP diastolic 50–70; PULSE 80; O2SAT 88–89; BMI 37.0
[2024-03-15 06:21] LABS: Hematocrit 32.8 % (37.0-47.0); Hemoglobin 10.6 g/dL (12.0-16.0); Mean Corp Hgb Conc. 32.3 g/dL (33.0-37.0); Mean Corpuscular Hgb 30.6 pg (27.0-31.0); Mean Corpuscular Volume 94.8 fL (81.0-99.0); Mean Platelet Volume 9.9 fL (7.4-10.4); Platelet Count 194 10^3/uL (130-400); Red Blood Cell Count 3.46 10^6/uL (4.20-5.40); Red Cell Dist. Width 13.3 % (11.5-14.5); White Blood Cell Count 9.3 10^3/uL (4.8-10.8)
[2024-03-15 06:33] LABS: Troponin I 0.038 ng/ml
[2024-03-15 06:53] LABS: Blood Urea Nitrogen 27 mg/dl (7-17); Calcium 8.6 mg/dl (8.4-10.2); Carbon Dioxide 31 mmol/L (22-30); Chloride 101 mmol/L (98-107); Estimated Creatinine Clearance 41 ml/min; Glucose 106 mg/dl (70-99); Potassium 3.4 mmol/L (3.5-5.1); Sodium 134 mmol/L (135-145); eGFR 33.84
[2024-03-15] MEDS: DUONEB 3 ML INH ×4 (07:34→19:27)
[2024-03-15] MEDS: PULMICORT 0.5 MG INH ×2 (07:34→19:27)
--- NOTE | 2024-03-15 09:13 | CON.CAR ---
Consultation
Consultation Request
Date/Time Consultation Requested: March 14 10:30 PM 2023
Date/Time Consultation Performed: March 15 8:45 AM 2023
Requesting Provider: Hospitalist
Performing Provider: Nile Macedo
Reason for Consultation: Concern for heart failure shortness of breath
Medical History
-
Chief Complaint: SOB
History of Present Illness:
73-year-old female with history of chronic respiratory failure secondary to COPD, heart failure preserved ejection fraction, CKD who is here with increased dyspnea on exertion and shortness of breath. She tells me that over the last couple of days
she has noticed significant shortness of breath especially with exertion. She tells me she has noticed when she gets COPD exacerbations her hands hurt and has abdominal fullness. She tells me she has been compliant with medications and diet. Her
weight appears stable. However, given persistent hypoxia above her 2 L at baseline she was sent in to the emergency department for evaluation after breathing treatments. She otherwise denies any fevers chills, chest pain, nausea vomiting diarrhea,
lightheaded/dizziness.
Past Medical History
Past Medical History: Other (Chronic hypoxic respiratory failure, COPD, chronic HFpEF, CKD stage III, chronic low back pain, anxiety/depression, morbid obesity, obstructive sleep apnea)
Past Surgical History: Other (Cholecystectomy left shoulder reconstruction fasciotomy)
Social History
Tobacco: Smoker
Alcohol: None
Living: Other (At the [facility])
Family History
Family History: Reviewed & Not Pertinent
Allergies / Home Medications
Allergy/AdvReac Type Severity Reaction Status Date / Time
ampicillin Allergy Hives Verified 03/14/24 18:20
coconut Allergy Hives Verified 03/14/24 18:20
mustard Allergy Hives Verified 03/14/24 18:20
�Medication �Instructions �Recorded �Confirmed �Type
albuterol sulfate 90 mcg/actuation 2 puff inhalation R Q4HPRN PRN 12/29/22 03/14/24 History
aerosol inhaler sob/wheezing
loratadine 5 mg-pseudoephedrine ER 1 tab PO DAILY Allergies 12/29/22 03/14/24 History
120 mg tablet,extended
release,12hr (Claritin-D 12 Hour)
bupropion HCl 300 mg 24 hr tablet, 300 mg PO DAILY Depression 07/19/23 03/14/24 History
extended release
sertraline 25 mg tablet 100 mg PO DAILY Depression 07/19/23 03/14/24 History
acetaminophen 325 mg tablet 650 mg PO Q4HPRN PRN mild pain 10/28/23 03/14/24 History
(Tylenol)
ipratropium 0.5 mg-albuterol 3 mg 3 ml inhalation R QID 10/28/23 03/14/24 History
(2.5 mg base)/3 mL nebulization Lung/Breathing Issues
soln
budesonide 160 mcg-glycopyr 9 2 inh inhalation R BID 01/18/24 03/14/24 History
mcg-formot 4.8 mcg/actuation HFA Lung/Breathing Issues
inhaler (Breztri Aerosphere)
furosemide 40 mg tablet 40 mg PO DAILY Fluid 02/20/24 03/14/24 History
Retention/Swelling
lidocaine 4 % topical patch 1 patch topical DAILY lower back 02/20/24 03/14/24 History
cyclobenzaprine 10 mg tablet 5 mg (1/2 x 10 mg) PO TID #30 tabs 02/24/24 03/14/24 Rx
docusate sodium 100 mg capsule 100 mg PO BID #30 caps 02/24/24 03/14/24 Rx
guaifenesin 600 mg tablet, 600 mg PO Q12 #30 tabs 02/24/24 03/14/24 Rx
extended release 12 hr
melatonin 5 mg tablet 10 mg (2 x 5 mg) PO HS #30 tabs 02/24/24 03/14/24 Rx
oxycodone 5 mg tablet 5 mg PO Q4HPRN PRN moderate pain 02/24/24 03/14/24 Rx
#14 tabs
bisacodyl 10 mg rectal suppository 10 mg [place] DAILYPRN PRN constipation 03/14/24 03/14/24 History
(Dulcolax (bisacodyl))
magnesium hydroxide 400 mg/5 mL 2,400 mg PO DAILYPRN PRN IF NO BM 03/14/24 03/14/24 History
oral suspension (Milk of Magnesia) BY 4TH DAY
Review of Systems
-
All other systems: Negative unless noted
Physical Exam
Vital Signs
Temp Pulse Resp BP Pulse Ox
98.2 F 79 16 107/57 94
03/15/24 07:00 03/15/24 07:35 03/15/24 07:35 03/15/24 07:00 03/15/24 07:35
Lab Results
03/15/24 05:36
03/15/24 05:36
Troponin I 0.038 ng/ml H* 03/15/24 05:36
Pqi-B-Jcolvhwbqrm Pept 1040 pg/ml 03/14/24 18:31
Physical Exam
General: Well Developed, Well Nourished and No Apparent Distress
HEENT: Normocephalic
Respiratory: Wheezes and Accessory Resp Muscle Use
Cardiac: S1/S2 and Regular Rhythm
GI: Soft
Musculoskeletal: No Cyanosis and No Edema
Skin: Warm and Dry
Neuro: AO x 3
Psych: Calm
Impression / Plan
-
A: 73-year-old female with history of chronic hypoxic respiratory failure, COPD, HFpEF, CKD who is here for worsening shortness of breath and dyspnea on exertion. It appears that she is experiencing a COPD exacerbation with possible slight heart
failure.
Heart failure preserved ejection fraction acute on chronic
-Update echocardiogram
-IV Lasix twice daily dosing with transition to home diuretic tomorrow
COPD exacerbation
-Cessation of smoking
-Per primary
Low back pain
-Management per primary
Data Reviewed
-
EKG: Tracing Personally Visualized and interpreted (Sinus rhythm )
Medical Tests (Nuc Med, Echo etc): Image Personally Visualized and interpreted
Labs: Labs Reviewed by me
[2024-03-15] MEDS: LIDOCAINE 4% PATCH TOPICAL ×2 (10:31→10:54)
[2024-03-15] MEDS: DESENEX/MITRAZOL/ZEASORB 1 APPLIC TOPICAL ×2 (10:31→20:17)
[2024-03-15] MEDS: TYLENOL 1000 MG PO ×3 (10:32→23:21)
[2024-03-15] MEDS: FLUSH (NSS) 2 FLUSH IV ×2 (10:33→17:17)
[2024-03-15] MEDS: LASIX 40 MG IV ×2 (10:33→17:16)
[2024-03-15] MEDS: COLACE 100 MG PO ×2 (10:34→20:17)
[2024-03-15] MEDS: MUCINEX 600 MG PO ×2 (10:34→20:17)
[2024-03-15] MEDS: HEPARIN 5000 UNITS SC ×3 (10:39→23:23)
[2024-03-15] MEDS: ZOLOFT 100 MG PO (10:39)
[2024-03-15] MEDS: FLEXERIL 5 MG PO ×3 (10:39→23:21)
[2024-03-15] MEDS: WELLBUTRIN XL (24 hour extended release) 300 MG PO (10:39)
--- NOTE | 2024-03-15 12:10 | W.PN.HOSP.TC ---
Today's Communication/Plan
-
cont lasix
Assessment / Plan
Assessment / Plan
Gen: NAD, AAOx3.
Eyes: EOMI, PERRLA, no scleral icterus.
Neck: supple.
CV: RRR, +S1/S2, no m/r/g.
Resp: rales in the bases, R>L
Abd: +BS, soft, NT, ND
Skin: No rashes. No LE edema
Neuro: CN 2-12 intact, non-focal.
Psych: Normal mood and affect.
CXR: No focal consolidation. Mild pulmonary vascular prominence and subtle interstitial prominence, suspicious for vascular congestion and interstitial edema. Consider possibility of cardiogenic versus noncardiogenic etiology. The heart is top
normal in size. No pneumothorax. No radiographically demonstrable significant pleural effusion.
Acute on Chronic Hypoxic Respiratory Failure secondary to Acute on Chronic HFpEF:
-Patient on 2L via nasal cannula at baseline, was on 6L NC O2 on admission, now weaned to 2L NC O2
-proBNP 1040
-Cardiology following
-Continue IV Lasix today, transition to PO Lasix tomorrow (as per discussion with cardiology)
-I/Os and daily wts
Other problems:
Hypokalemia: PO K
Elevated Troponin, likely Non-Ischemic Myocardial Injury in setting of heart failure
Leukocytosis, likely steroid induced
Chronic Back Pain secondary to L2 Compression Fracture: cont Lidocaine/Flexeril/Tylenol 1000mg TID with oxycodone prn for breakthrough pain
COPD, not acute exacerbation: cont pulmicort/Duoneb QID and PRN
CKD3b
Anxiety/Depression/Insomnia: cont melatonin/sertraline
Morbid Obesity due to excess calories: Affects all aspects of care, encourage weight loss
Obstructive Sleep Apnea: intolerant of CPAP
FULL/Heparin
Anticipated Discharge: Within 24 hours
Subjective/Interval History
-
Date of Service: March 15, 2024
Denies CP/SOB.
Objective Data
-
Labs:
Laboratory Results
03/15/24
05:36
WBC 9.3
Hgb 10.6 L
Hct 32.8 L
Plt Count 194 D
Sodium 134 L
Potassium 3.4 L
Chloride 101
Carbon Dioxide 31 H
BUN 27 H
Creatinine 1.6 H
Glucose 106 H
Calcium 8.6
Vital Signs:
Vital Signs
Temp Pulse Resp BP Pulse Ox
98.1 F 80 16 115/70 97
03/15/24 11:00 03/15/24 11:32 03/15/24 11:32 03/15/24 11:00 03/15/24 11:00
I&O
03/14/24 03/15/24 03/16/24
06:59 06:59 06:59
Intake Total 0 / 0
Output Total 100 / 100
Balance -100 / -100
[2024-03-15] MEDS: ROXICODONE 5 MG PO (14:43)
[2024-03-15] MEDS: MELATONIN 10 MG PO (23:22)
[2024-03-16 03:50] VITALS: BP 103/51
[2024-03-16 06:00] VITALS: BMI 37.0
[2024-03-16] MEDS: DUONEB 3 ML INH ×4 (07:30→20:19)
[2024-03-16] MEDS: PULMICORT 0.5 MG INH ×2 (07:30→20:19)
[2024-03-16 07:37] VITALS: BP 136/57
[2024-03-16 08:02] LABS: Blood Urea Nitrogen 29 mg/dl (7-17); Calcium 9.1 mg/dl (8.4-10.2); Carbon Dioxide 30 mmol/L (22-30); Chloride 99 mmol/L (98-107); Estimated Creatinine Clearance 43 ml/min; Glucose 100 mg/dl (70-99); Potassium 3.1 mmol/L (3.5-5.1); Sodium 137 mmol/L (135-145); eGFR 36.57
[2024-03-16] MEDS: LIDOCAINE 4% PATCH TOPICAL (09:02)
[2024-03-16] MEDS: HEPARIN 5000 UNITS SC ×3 (09:04→23:01)
[2024-03-16] MEDS: DESENEX/MITRAZOL/ZEASORB 1 APPLIC TOPICAL ×2 (09:04→19:56)
[2024-03-16] MEDS: TYLENOL 1000 MG PO ×3 (09:04→21:09)
[2024-03-16] MEDS: MUCINEX 600 MG PO ×2 (09:04→19:57)
[2024-03-16] MEDS: FLEXERIL 5 MG PO ×3 (09:04→21:09)
[2024-03-16] MEDS: WELLBUTRIN XL (24 hour extended release) 300 MG PO (09:04)
[2024-03-16] MEDS: COLACE 100 MG PO (09:04)
[2024-03-16] MEDS: ZOLOFT 100 MG PO (09:04)
[2024-03-16] MEDS: LASIX 40 MG PO (09:04)
--- NOTE | 2024-03-16 09:53 | CM ---
Addendum entered by Barbie Uribe 03/16/24 15:27:
spoke with daughter pascual who wants patient to return to rehab as recommended by therapy.she is now sating on ra.[facility] initially told cm they would accept patient tomorrow.yola in adm from [facility] called back to inform cm that patient only had
4 days left for snf placement.therefore [facility] is not able to adm patient tomorrow. i have left [facility] with daughter pascual and asked that she return my call. i am asking pascual to call [facility] to find out where patient has used her days.i have
sent TT to attending to update him.patient is current with [facility]. referral sent via [employer].[phone]
Original Note:
met with patient at bedside.patient adm from [facility] short term rehab.she lives with her daughter in [facility] [address],she sleeps in trundle bed in [facility].she ambulates with a walker,is I with her adl's.she is on home o2 at 2 liters
nc with [facility].she has had a vn from [facility] and came to us from [facility].her pcp is dr taylor and she uses [facility] in [place].
patient is adm with chf on iv lasix and 6 liters nc o2,ivf.therapy has recommended patient return to short term rehab.patient wants to return home with h[facility].referral sent to [facility].plan snf vs [facility].
--- NOTE | 2024-03-16 10:01 | W.PN.HOSP.TC ---
Addendum entered and electronically signed by Juan Beasley MD 03/16/24 11:33:
Patient now agreeable to discharge. She does not want to go to residential facility.
Total time spent on d/c = 34 min. This included today's physical exam, progress note, review of laboratory and diagnostic data, preparation of discharge documents and prescriptions, and discussions about the pt's hospital course and discharge plan
with the patient and other medical front desk specialist involved in the patient's care.
Original Note:
Today's Communication/Plan
-
Pt states she is not ready for discharge today. See bold.
Assessment / Plan
Assessment / Plan
Gen: NAD, AAOx3.
Eyes: EOMI, PERRLA, no scleral icterus.
Neck: supple.
CV: RRR, +S1/S2, no m/r/g.
Resp: rales B/L
Abd: +BS, soft, NT, ND
Skin: No rashes. No LE edema
Neuro: CN 2-12 intact, non-focal.
Psych: Normal mood and affect.
CXR: No focal consolidation. Mild pulmonary vascular prominence and subtle interstitial prominence, suspicious for vascular congestion and interstitial edema. Consider possibility of cardiogenic versus noncardiogenic etiology. The heart is top
normal in size. No pneumothorax. No radiographically demonstrable significant pleural effusion.
Acute on Chronic Hypoxic Respiratory Failure secondary to Acute on Chronic HFpEF:
-Patient on 2L via nasal cannula at baseline, was on 6L NC O2 on admission, now weaned to 2L NC O2
-proBNP 1040
-Cardiology following
-was on IV Lasix, now transitioned to PO Lasix (as per discussion with cardiology on 03/15/24)
-I/Os and daily wts
Other problems:
Hypokalemia: 40meq Kdur x 2 doses today, check Mg
Elevated Troponin, likely Non-Ischemic Myocardial Injury in setting of heart failure
Leukocytosis, likely steroid induced
Chronic Back Pain secondary to L2 Compression Fracture: cont Lidocaine/Flexeril/Tylenol 1000mg TID with oxycodone prn for breakthrough pain
COPD, not acute exacerbation: cont pulmicort/Duoneb QID and PRN
CKD3b
Anxiety/Depression/Insomnia: cont melatonin/sertraline
Morbid Obesity due to excess calories: Affects all aspects of care, encourage weight loss
Obstructive Sleep Apnea: intolerant of CPAP
FULL/Heparin
Anticipated Discharge: Within 24 hours
Subjective/Interval History
-
Date of Service: March 16, 2024
Objective Data
-
Labs:
Laboratory Results
03/16/24
07:05
Sodium 137
Potassium 3.1 L
Chloride 99
Carbon Dioxide 30
BUN 29 H
Creatinine 1.5 H
Glucose 100 H
Calcium 9.1
Vital Signs:
Vital Signs
Temp Pulse Resp BP Pulse Ox
97.9 F 83 14 136/57 97
03/16/24 07:37 03/16/24 07:37 03/16/24 07:37 03/16/24 07:37 03/16/24 07:37
I&O
03/15/24 03/16/24 03/17/24
06:59 06:59 06:59
Intake Total 0 / 0 720 / 720
Output Total 100 / 100 600 / 600
Balance -100 / -100 120 / 120
[2024-03-16 10:44] VITALS: BP 107/65
[2024-03-16] MEDS: KCL 40 MEQ PO ×2 (10:58→14:09)
[2024-03-16 12:21] LABS: Magnesium 1.9 mg/dl (1.6-2.3)
[2024-03-16 15:07] VITALS: BP 102/59
[2024-03-16] MEDS: ROXICODONE 5 MG PO ×2 (15:26→22:21)
--- NOTE | 2024-03-16 15:55 | W.HF.CON ---
Heart Failure
- LV Function
Left ventricular function study result: LV Ejection fraction >40% (ECHO 08/18/23)
Ejection Fraction Percentage: 50-55
- ARNI
Patient already on ARNI: No
Heart Failure ARNI Not Indicated: LV Ejection Fraction >/= 40%
- ACEI/ARB
Patient already on ACEI/ARB: No
Heart Failure ACEI/ARB Not Indicated: LV Ejection Fraction > 40%
- Beta Kerwin
Patient already on Evidence Based Beta Kerwin: No
Heart Failure Evidence Based Beta Kerwin Not Indicated: LV Ejection Fraction > 40%
- Mineralocorticord Receptor Antagonist
Patient already on MRA: No
Heart Failure MRA Not Indicated: LV Ejection Fraction > 40%
- SGLT-2 Inhibitor
Patient already on SGLT-2 Inhibitor: No
Heart Failure SGLT-2 Inhibitor Not Indicated: LV Ejection Fraction >40%
- NYHA CHF Classification
NYHA CHF Classification Level: Class III - Symptoms w/ min exertion, interferes w/ nml daily activity (on 2L oxygen at home)
- ACC/AHA Stage
ACC/AHA Stage: Stage C: Symptomatic Heart Failure
[2024-03-16 19:23] VITALS: BP 111/55
[2024-03-16] MEDS: COLACE PO (19:56)
[2024-03-16] MEDS: MELATONIN 10 MG PO (21:09)
[2024-03-16 23:39] VITALS: BP 100/55
[2024-03-17 03:55] VITALS: BP 100/41
[2024-03-17] MEDS: ROXICODONE 5 MG PO ×2 (04:07→23:16)
[2024-03-17 05:51] VITALS: BMI 36.7
[2024-03-17 06:08] LABS: Blood Urea Nitrogen 28 mg/dl (7-17); Calcium 9.3 mg/dl (8.4-10.2); Carbon Dioxide 29 mmol/L (22-30); Chloride 102 mmol/L (98-107); Estimated Creatinine Clearance 43 ml/min; Glucose 111 mg/dl (70-99); Potassium 3.7 mmol/L (3.5-5.1); Sodium 137 mmol/L (135-145); eGFR 36.57
[2024-03-17 07:15] VITALS: BP 102/50
[2024-03-17] MEDS: PULMICORT 0.5 MG INH ×2 (07:28→20:02)
[2024-03-17] MEDS: DUONEB 3 ML INH ×4 (07:28→20:02)
[2024-03-17] MEDS: LIDOCAINE 4% PATCH TOPICAL (09:23)
[2024-03-17] MEDS: COLACE PO (09:23)
[2024-03-17] MEDS: HEPARIN 5000 UNITS SC ×3 (09:25→23:06)
[2024-03-17] MEDS: DESENEX/MITRAZOL/ZEASORB 1 APPLIC TOPICAL ×2 (09:26→19:47)
[2024-03-17] MEDS: WELLBUTRIN XL (24 hour extended release) 300 MG PO (09:27)
[2024-03-17] MEDS: TYLENOL 1000 MG PO ×3 (09:27→21:37)
[2024-03-17] MEDS: LASIX 40 MG PO (09:27)
[2024-03-17] MEDS: FLEXERIL 5 MG PO ×3 (09:27→21:37)
[2024-03-17] MEDS: MUCINEX 600 MG PO ×2 (09:27→19:47)
[2024-03-17] MEDS: ZOLOFT 100 MG PO (09:27)
[2024-03-17 11:37] VITALS: BP 108/57
[2024-03-17 15:53] VITALS: BP 114/64
--- NOTE | 2024-03-17 17:23 | W.PN.HOSP.TC ---
Today's Communication/Plan
-
Case management to work with patient regarding rehab
CXR
Nebs
Assessment / Plan
Assessment / Plan
CVS: S1-S2 normal
Chest: mild wheeze upper. Chest back CTA
Abdomen: Soft, NT / Bowel sounds present
Extremities: No edema, normal pulses
CXR: No focal consolidation. Mild pulmonary vascular prominence and subtle interstitial prominence, suspicious for vascular congestion and interstitial edema. Consider possibility of cardiogenic versus noncardiogenic etiology. The heart is top
normal in size. No pneumothorax. No radiographically demonstrable significant pleural effusion.
#Acute on Chronic Hypoxic Respiratory Failure secondary to Acute on Chronic HFpEF:
-Patient on 2L via nasal cannula at baseline, was on 6L NC O2 on admission, now weaned to 2L NC O2
-proBNP 1040
-Cardiology consulted
-was on IV Lasix, now transitioned to PO Lasix (as per discussion with cardiology on 03/15/24)
-Weight is better now
-Slight wheezing-likely upper but will get x-ray
#Hypokalemia: Resolved
#Elevated Troponin, likely Non-Ischemic Myocardial Injury in setting of heart failure
#Leukocytosis, likely steroid induced
#Chronic Back Pain secondary to L2 Compression Fracture: cont Lidocaine/Flexeril/Tylenol 1000mg TID with oxycodone prn for breakthrough pain
#COPD, not acute exacerbation: cont pulmicort/Duoneb QID and PRN
#CKD3b
#Anxiety/Depression/Insomnia: cont melatonin/sertraline
#Morbid Obesity due to excess calories: Affects all aspects of care, encourage weight loss
#Obstructive Sleep Apnea: intolerant of CPAP
#FULL
#DVT prophylaxis-Heparin
D/W RN
Anticipated Discharge: Within 24 hours
Subjective/Interval History
-
Date of Service: March 17, 2024
Objective Data
-
Labs:
Laboratory Results
03/17/24
05:21
Sodium 137
Potassium 3.7
Chloride 102
Carbon Dioxide 29
BUN 28 H
Creatinine 1.5 H
Glucose 111 H
Calcium 9.3
Vital Signs:
Vital Signs
Temp Pulse Resp BP Pulse Ox
97.5 F 81 18 114/64 96
03/17/24 15:53 03/17/24 15:53 03/17/24 15:53 03/17/24 15:53 03/17/24 15:53
I&O
03/16/24 03/17/24 03/18/24
06:59 06:59 06:59
Intake Total 720 / 720 960 / 960
Output Total 600 / 600
Balance 120 / 120 960 / 960
[2024-03-17] MEDS: MILK OF MAGNESIA 30 ML PO (17:44)
[2024-03-17] MEDS: MIRALAX 17 GRAMS PO (17:44)
[2024-03-17 19:30] VITALS: BP 122/61
[2024-03-17] MEDS: SENOKOT 17.1999999999999993 MG PO (19:47)
[2024-03-17] MEDS: COLACE 100 MG PO (19:47)
[2024-03-17] MEDS: MELATONIN 10 MG PO (21:37)
[2024-03-17 23:50] VITALS: BP 112/51
[2024-03-18 03:47] VITALS: BP 107/48
[2024-03-18] MEDS: ROXICODONE 5 MG PO ×2 (05:16→14:50)
[2024-03-18 06:00] VITALS: BMI 36.7
[2024-03-18 07:00] VITALS: BP 104/50
[2024-03-18] MEDS: PULMICORT 0.5 MG INH ×2 (07:46→20:04)
[2024-03-18] MEDS: DUONEB 3 ML INH ×4 (07:46→20:04)
[2024-03-18 08:20] LABS: Blood Urea Nitrogen 27 mg/dl (7-17); Calcium 9.5 mg/dl (8.4-10.2); Carbon Dioxide 32 mmol/L (22-30); Chloride 100 mmol/L (98-107); Estimated Creatinine Clearance 43 ml/min; Glucose 109 mg/dl (70-99); Potassium 4.3 mmol/L (3.5-5.1); Sodium 136 mmol/L (135-145); eGFR 36.57
[2024-03-18] MEDS: ZOLOFT 100 MG PO (09:16)
[2024-03-18] MEDS: FLEXERIL 5 MG PO ×3 (09:16→21:34)
[2024-03-18] MEDS: WELLBUTRIN XL (24 hour extended release) 300 MG PO (09:16)
[2024-03-18] MEDS: TYLENOL 1000 MG PO ×3 (09:16→21:36)
[2024-03-18] MEDS: MUCINEX 600 MG PO ×2 (09:16→21:33)
[2024-03-18] MEDS: LASIX 40 MG PO (09:16)
[2024-03-18] MEDS: HEPARIN 5000 UNITS SC ×3 (09:17→23:19)
[2024-03-18] MEDS: COLACE PO ×2 (09:18→21:31)
[2024-03-18] MEDS: DESENEX/MITRAZOL/ZEASORB 1 APPLIC TOPICAL ×2 (09:18→21:32)
[2024-03-18] MEDS: SENOKOT PO ×2 (09:19→21:32)
[2024-03-18] MEDS: LIDOCAINE 4% PATCH 1 PATCH TOPICAL (09:19)
[2024-03-18] MEDS: MIRALAX PO (09:19)
[2024-03-18 11:00] VITALS: BP 111/54
--- NOTE | 2024-03-18 14:32 | W.PN.HOSP.TC ---
Today's Communication/Plan
-
Medically stable for discharge to rehab
Assessment / Plan
Assessment / Plan
CVS: S1-S2 normal
Chest:Chest back CTA
Abdomen: Soft, NT / Bowel sounds present
Extremities: No edema, normal pulses
CXR: No focal consolidation. Mild pulmonary vascular prominence and subtle interstitial prominence, suspicious for vascular congestion and interstitial edema. Consider possibility of cardiogenic versus noncardiogenic etiology. The heart is top
normal in size. No pneumothorax. No radiographically demonstrable significant pleural effusion.
#Acute on Chronic Hypoxic Respiratory Failure secondary to Acute on Chronic HFpEF:
-Patient on 2L via nasal cannula at baseline, was on 6L NC O2 on admission, now weaned to 2L NC O2
-proBNP 1040
-Cardiology consulted
-was on IV Lasix, now transitioned to PO Lasix
-Weight is better now
-Xray stable
#Hypokalemia: Resolved
#Elevated Troponin, likely Non-Ischemic Myocardial Injury in setting of heart failure
#Leukocytosis, likely steroid induced
#Chronic Back Pain secondary to L2 Compression Fracture: cont Lidocaine/Flexeril/Tylenol 1000mg TID with oxycodone prn for breakthrough pain
#COPD, not acute exacerbation: cont Pulmicort/Duoneb QID and PRN
#CKD3b
#Anxiety/Depression/Insomnia: cont melatonin/sertraline
#Morbid Obesity due to excess calories: Affects all aspects of care, encourage weight loss
#Obstructive Sleep Apnea: intolerant of CPAP
#FULL
#DVT prophylaxis-Heparin
D/W RN
D/W Daughter on the phone.
Daughter states that patient has only used 33 rehab days and she should have more left. Social work consulted to sort this out.
Patient is medically stable for discharge to rehab today
Anticipated Discharge: Today
Subjective/Interval History
-
Date of Service: March 18, 2024
Objective Data
-
Labs:
Laboratory Results
03/18/24
07:45
Sodium 136
Potassium 4.3
Chloride 100
Carbon Dioxide 32 H
BUN 27 H
Creatinine 1.5 H
Glucose 109 H
Calcium 9.5
Vital Signs:
Vital Signs
Temp Pulse Resp BP Pulse Ox
98.1 F 81 16 111/54 93
03/18/24 11:00 03/18/24 11:17 03/18/24 11:17 03/18/24 11:00 03/18/24 11:17
I&O
03/17/24 03/18/24 03/19/24
06:59 06:59 06:59
Intake Total 960 / 960 880 / 880
Balance 960 / 960 880 / 880
[2024-03-18 15:00] VITALS: BP 97/54
--- NOTE | 2024-03-18 15:47 | CM ---
Patient with Dx Acute on Chronic Hypoxic Respiratory Failure, HF. Room air. PT notes 03/15; recommend rehab. OT Corinne 03/15 recommends skilled rehab.
Spoke with patient's daughter Alma Delia; she would like CM to contact [facility] tomorrow to clarify # SNF days used, dates used, and # available SNF days left. Daughter feels that her mother has not exhausted her SNF benefits and should have more than
4 days remaining. She states she did not hold the rehab bed/did not do bed hold at [facility].
Message to Adeline PT & Pattie OT; patient will need updated PT/OT notes by tomorrow for SNF---> patient will be seen tomorrow.
Plan follow up with [facility] Gar[facility] to clarify if any SNF days are remaining and provide update to daughter.
Plan follow up after seen by PT/OT again.
[2024-03-18 19:23] VITALS: BP 102/50
[2024-03-18] MEDS: MELATONIN 10 MG PO (21:34)
[2024-03-18 23:33] VITALS: BP 93/56
[2024-03-19 03:54] VITALS: BP 102/50
[2024-03-19 04:02] VITALS: BMI 36.7
[2024-03-19 06:00] VITALS: BMI 36.7
[2024-03-19 07:00] VITALS: BP 104/52
[2024-03-19] MEDS: PULMICORT 0.5 MG INH (07:40)
[2024-03-19] MEDS: DUONEB 3 ML INH ×3 (07:40→15:33)
[2024-03-19] MEDS: TYLENOL 1000 MG PO ×2 (08:41→16:00)
[2024-03-19] MEDS: MIRALAX 17 GRAMS PO (08:41)
[2024-03-19] MEDS: WELLBUTRIN XL (24 hour extended release) 300 MG PO (08:41)
[2024-03-19] MEDS: MUCINEX 600 MG PO (08:41)
[2024-03-19] MEDS: SENOKOT 17.1999999999999993 MG PO (08:42)
[2024-03-19] MEDS: COLACE 100 MG PO (08:42)
[2024-03-19] MEDS: ZOLOFT 100 MG PO (08:42)
[2024-03-19] MEDS: FLEXERIL 5 MG PO ×2 (08:42→16:00)
[2024-03-19] MEDS: HEPARIN 5000 UNITS SC (08:43)
[2024-03-19] MEDS: DESENEX/MITRAZOL/ZEASORB 1 APPLIC TOPICAL (08:43)
[2024-03-19] MEDS: LASIX 40 MG PO (08:43)
[2024-03-19] MEDS: LIDOCAINE 4% PATCH TOPICAL (08:43)
--- NOTE | 2024-03-19 09:48 | CM ---
Addendum entered by Alley Veras 03/19/24 13:21:
CM spoke with patient daughter and Admissions. Clarification patient has 76 days and patient is accepted for transfer to [facility] today. Patient daughter elated.
Original Note:
CM spoke with Admissions at [facility], per Elvi patient only has 4 days remaining on [facility] benefit. CM updated daughter and she is calling to confirm dates. Patient may need MA pending maurilio for placement. CM will continue to follow for discharge planning
needs.
Plan; Placement pending available bed.
[2024-03-19] MEDS: ROXICODONE 5 MG PO (10:18)
[2024-03-19 10:38] VITALS: BP 101/46; PULSE 107; O2SAT 91
[2024-03-19 11:00] VITALS: BP 140/66
--- NOTE | 2024-03-19 12:37 | W.PN.HOSP.TC ---
Addendum entered and electronically signed by Jayy Dobson MD 03/19/24 12:43:
Discharge coordination time 35 min
Original Note:
Today's Communication/Plan
-
Discharge
Assessment / Plan
Assessment / Plan
CVS: S1-S2 normal
Chest:few scattered rales
Abdomen: Soft, NT / Bowel sounds present
Extremities: No edema, normal pulses
CXR: No focal consolidation. Mild pulmonary vascular prominence and subtle interstitial prominence, suspicious for vascular congestion and interstitial edema. Consider possibility of cardiogenic versus noncardiogenic etiology. The heart is top
normal in size. No pneumothorax. No radiographically demonstrable significant pleural effusion.
#Acute on Chronic Hypoxic Respiratory Failure secondary to Acute on Chronic HFpEF:
-Patient on 2L via nasal cannula at baseline, was on 6L NC O2 on admission, now weaned to 2L NC O2
-proBNP 1040
-Cardiology consulted
-was on IV Lasix, now transitioned to PO Lasix
-Weight is better now
-Xray stable
#Constipation- Pt adamantly refusing bowel regimen stating she had BMS almost every day. She goes to bathroom on her own . No BM today.
Discussed Xray finding.
She still is refusing.
She is aware about constipation effects on her body
#Hypokalemia: Resolved
#Elevated Troponin, likely Non-Ischemic Myocardial Injury in setting of heart failure
#Leukocytosis, likely steroid induced
#Chronic Back Pain secondary to L2 Compression Fracture: cont Lidocaine/Flexeril/Tylenol 1000mg TID with oxycodone prn for breakthrough pain
#COPD, not acute exacerbation: cont Pulmicort/Duoneb QID and PRN
#CKD3b
#Anxiety/Depression/Insomnia: cont melatonin/sertraline
#Morbid Obesity due to excess calories: Affects all aspects of care, encourage weight loss
#Obstructive Sleep Apnea: intolerant of CPAP
#FULL
#DVT prophylaxis-Heparin
D/W RN
D/W Daughter on the phone. yesterday
D/W Case management
Daughter states that patient has only used 33 rehab days and she should have more left. Social work consulted to sort this out.
Patient is medically stable for discharge to rehab today
Anticipated Discharge: Today
Subjective/Interval History
-
Date of Service: March 19, 2024
Objective Data
-
Vital Signs:
Vital Signs
Temp Pulse Resp BP Pulse Ox
97.6 F 75 16 140/66 95
03/19/24 11:00 03/19/24 11:33 03/19/24 11:33 03/19/24 11:00 03/19/24 11:33
I&O
03/18/24 03/19/24 03/20/24
06:59 06:59 06:59
Intake Total 880 / 880 520 / 520
Balance 880 / 880 520 / 520
--- NOTE | 2024-03-19 12:43 | W.DS.TRANS ---
Addendum entered and electronically signed by Jayy Dobson MD 03/19/24 15:07:
Dictation- [id number]
Original Note:
DC Summary - Sound Assistant
-
Discharge Instructions:
Discharge Diagnosis/Procedures Acute on Chronic Hypoxic Respiratory Failure
secondary to Acute on Chronic heart failure with
preserved ejection fraction, hypokalemia
Diet Low Cholesterol
Additional Diets Fluid restrict to 1200 cc/day
Activity As tolerated
Driving Restrictions As prior to admission
Blood Work BMP, Mg, CBC in 1 week,
Other Services OT,PT
Specialty Instructions Weigh Daily
Instructions:
Stand-Alone Forms:
Changes to Home Medications: Yes
Discharge Medications:
DC Medications w/original date entered in [facility]
albuterol sulfate 90 mcg/actuation aerosol inhaler 2 puff inhalation R Q4HPRN PRN sob/wheezing 12/29/22
loratadine 5 mg-pseudoephedrine ER 120 mg tablet,extended release,12hr (Claritin-D 12 Hour) 1 tab PO DAILY Allergies 12/29/22
bupropion HCl 300 mg 24 hr tablet, extended release 300 mg PO DAILY Depression 07/19/23
sertraline 25 mg tablet 100 mg PO DAILY Depression 07/19/23
acetaminophen 325 mg tablet (Tylenol) 650 mg PO Q4HPRN PRN mild pain 10/28/23
ipratropium 0.5 mg-albuterol 3 mg (2.5 mg base)/3 mL nebulization soln 3 ml inhalation R QID Lung/Breathing Issues 10/28/23
budesonide 160 mcg-glycopyr 9 mcg-formot 4.8 mcg/actuation HFA inhaler (Breztri Aerosphere) 2 inh inhalation R BID Lung/Breathing Issues 01/18/24
furosemide 40 mg tablet 40 mg PO DAILY Fluid Retention/Swelling 02/20/24
lidocaine 4 % topical patch 1 patch topical DAILY lower back 02/20/24
bisacodyl 10 mg rectal suppository (Dulcolax (bisacodyl)) 10 mg NH DAILYPRN PRN constipation 03/14/24
magnesium hydroxide 400 mg/5 mL oral suspension (Milk of Magnesia) 2,400 mg PO DAILYPRN PRN IF NO BM BY 4TH DAY 03/14/24
cyclobenzaprine 10 mg tablet 5 mg (1/2 x 10 mg) PO TID muscle spasm #30 tabs 03/19/24
docusate sodium 100 mg capsule 100 mg PO BID Constipation #30 caps 03/19/24
guaifenesin 600 mg tablet, extended release 12 hr 600 mg PO Q12 Lung/breathing issues #30 tabs 03/19/24
melatonin 5 mg tablet 10 mg (2 x 5 mg) PO HS Sleep #30 tabs 03/19/24
oxycodone 5 mg tablet 5 mg PO Q8HPRN PRN moderate pain #8 tabs 03/19/24
polyethylene glycol 3350 17 gram oral powder packet (HealthyLax) 17 g PO DAILY Constipation #0 ea 03/19/24
sennosides 8.6 mg tablet (Senna Laxative) 17.2 mg (2 x 8.6 mg) PO HS Constipation #0 tabs 03/19/24
Home Medication Changes
new
polyethylene glycol 3350 17 gram oral powder packet (HealthyLax) 17 g PO DAILY Constipation #0 ea 03/19/24
sennosides 8.6 mg tablet (Senna Laxative) 17.2 mg (2 x 8.6 mg) PO HS Constipation #0 tabs 03/19/24
Pending Results: No
--- NOTE | 2024-03-19 13:46 | CM ---
Flory is ready for discharge to [facility] today. Call placed to Flory's daughter, Alma Delia Reis ([phone]) to confirm that she would be transporting her mother to [facility] and that she would have Flory's O2 for the ride. RN aware of
discharge later this afternoon.
Call Report to: [phone]
Fax updated med list and records: [phone]
[2024-03-19 15:00] VITALS: BP 110/62
[2024-03-19] MEDS: HEPARIN SC (16:00)
== END 2024-03-19 17:22 | DRG 291 ==
LOC: 4 EAST ACU 21:59
PROVIDERS: Emergency Medicine; Physician Assistant Medical; ADMITTING PHYSICIAN Hospitalist; ATTENDING PHYSICIAN Hospitalist; EMERGENCY PHYSICIAN Emergency Medicine; FAMILY PHYSICIAN Family Medicine; OTHER PHYSICIAN Internal Medicine Cardiovascular Disease
DX: I50.33 Acute on chronic diastolic (congestive) heart failure (principal); J96.21 Acute and chronic respiratory failure with hypoxia; I5A Non-ischemic myocardial injury (non-traumatic); G89.29 Other chronic pain; J44.9 Chronic obstructive pulmonary disease, unspecified; N18.30 Chronic kidney disease, stage 3 unspecified; F41.9 Anxiety disorder, unspecified; F32.A Depression, unspecified; G47.00 Insomnia, unspecified; E66.01 Morbid (severe) obesity due to excess calories; G47.33 Obstructive sleep apnea (adult) (pediatric); Z68.36 Body mass index [BMI] 36.0-36.9, adult; F17.200 Nicotine dependence, unspecified, uncomplicated; E87.6 Hypokalemia; K59.00 Constipation, unspecified
CPT/HCPCS: 71045; 71046; 74018; 80048; 80053; 83605; 83735; 83880; 84484; 85025; 85027; 87040; 93005; 94640; 96374; 97162; 97166; 97530; 99291

== ENCOUNTER → 2024-03-26 10:07 | Outpatient (REF) | payer OTHER, MEDICARE, SELFPAY ==
[2024-03-26 11:07] LABS: Hematocrit 32.9 % (37.0-47.0); Hemoglobin 10.3 g/dL (12.0-16.0); Mean Corp Hgb Conc. 31.3 g/dL (33.0-37.0); Mean Corpuscular Hgb 30.7 pg (27.0-31.0); Mean Corpuscular Volume 97.9 fL (81.0-99.0); Platelet Count 339 10^3/uL (130-400); Red Blood Cell Count 3.36 10^6/uL (4.20-5.40); Red Cell Dist. Width 14.3 % (11.5-14.5); White Blood Cell Count 10.4 10^3/uL (4.8-10.8)
[2024-03-26 11:16] LABS: Blood Urea Nitrogen 21 mg/dl (7-17); Calcium 8.8 mg/dl (8.4-10.2); Carbon Dioxide 29 mmol/L (22-30); Chloride 99 mmol/L (98-107); Glucose 98 mg/dl (70-99); Magnesium 2.5 mg/dl (1.6-2.3); Potassium 3.8 mmol/L (3.5-5.1); Sodium 136 mmol/L (135-145); eGFR 36.57
[2024-03-27 09:59] LABS: NT-proBNP 418 pg/ml
== END ==
LOC: OLABP 10:07
PROVIDERS: ATTENDING PHYSICIAN Student in an Organized Health Care Education/Training Program
DX: I50.31 Acute diastolic (congestive) heart failure (principal); N18.30 Chronic kidney disease, stage 3 unspecified; J44.1 Chronic obstructive pulmonary disease with (acute) exacerbation; M62.81 Muscle weakness (generalized); E87.6 Hypokalemia
CPT/HCPCS: 36415; 80048; 83735; 83880; 85027

== ENCOUNTER → 2024-03-27 10:46 | Outpatient (REF) | payer OTHER, MEDICARE, SELFPAY ==
[2024-03-27 11:51] LABS: Hematocrit 36.2 % (37.0-47.0); Hemoglobin 11.5 g/dL (12.0-16.0); Mean Corp Hgb Conc. 31.8 g/dL (33.0-37.0); Mean Corpuscular Hgb 30.4 pg (27.0-31.0); Mean Corpuscular Volume 95.8 fL (81.0-99.0); Platelet Count 401 10^3/uL (130-400); Red Blood Cell Count 3.78 10^6/uL (4.20-5.40); Red Cell Dist. Width 14.3 % (11.5-14.5); White Blood Cell Count 9.8 10^3/uL (4.8-10.8)
[2024-03-27 12:03] LABS: Blood Urea Nitrogen 21 mg/dl (7-17); Calcium 9.2 mg/dl (8.4-10.2); Carbon Dioxide 31 mmol/L (22-30); Chloride 95 mmol/L (98-107); Glucose 103 mg/dl (70-99); Magnesium 2.4 mg/dl (1.6-2.3); Potassium 3.6 mmol/L (3.5-5.1); Sodium 136 mmol/L (135-145); eGFR 31.47
[2024-03-27 12:10] LABS: NT-proBNP 376 pg/ml
== END ==
LOC: OLABP 10:46
PROVIDERS: ATTENDING PHYSICIAN Student in an Organized Health Care Education/Training Program
DX: N18.30 Chronic kidney disease, stage 3 unspecified (principal); J44.1 Chronic obstructive pulmonary disease with (acute) exacerbation; M62.81 Muscle weakness (generalized); E87.6 Hypokalemia; I50.31 Acute diastolic (congestive) heart failure
CPT/HCPCS: 36415; 80048; 83735; 83880; 85027

== ENCOUNTER → 2024-03-29 10:25 | Outpatient (REF) | payer OTHER, MEDICARE, SELFPAY ==
[2024-03-29 10:59] LABS: Blood Urea Nitrogen 40 mg/dl (7-17); Carbon Dioxide 34 mmol/L (22-30); Chloride 91 mmol/L (98-107); Glucose 103 mg/dl (70-99); Potassium 3.5 mmol/L (3.5-5.1); Sodium 135 mmol/L (135-145); eGFR 29.38
== END ==
LOC: OLABP 10:25
PROVIDERS: ATTENDING PHYSICIAN Student in an Organized Health Care Education/Training Program
DX: N18.30 Chronic kidney disease, stage 3 unspecified (principal); J44.1 Chronic obstructive pulmonary disease with (acute) exacerbation; M62.81 Muscle weakness (generalized); E87.6 Hypokalemia; I50.31 Acute diastolic (congestive) heart failure
CPT/HCPCS: 36415; 80048

== ENCOUNTER → 2024-04-02 10:17 | Outpatient (REF) | payer OTHER, MEDICARE, SELFPAY ==
[2024-04-02 11:29] LABS: Blood Urea Nitrogen 56 mg/dl (7-17); Calcium 9.1 mg/dl (8.4-10.2); Carbon Dioxide 33 mmol/L (22-30); Chloride 98 mmol/L (98-107); Glucose 99 mg/dl (70-99); Potassium 4.2 mmol/L (3.5-5.1); Sodium 139 mmol/L (135-145); eGFR 31.47
== END ==
LOC: OLABP 10:17
PROVIDERS: ATTENDING PHYSICIAN Student in an Organized Health Care Education/Training Program
DX: N18.30 Chronic kidney disease, stage 3 unspecified (principal); J44.1 Chronic obstructive pulmonary disease with (acute) exacerbation; M62.81 Muscle weakness (generalized); E87.6 Hypokalemia; I50.31 Acute diastolic (congestive) heart failure
CPT/HCPCS: 36415; 80048

== ENCOUNTER 2024-04-17 22:21 | Inpatient (IN) | payer MEDICARE, SELFPAY ==
[2024-04-17] VITALS (7 sets, daily range): BP systolic 119–135; BP diastolic 64–105; BMI 41.1
[2024-04-17 16:41] LABS: ALT (SGPT) 25 U/L (0-35); AST (SGOT) 24 U/L (14-36); Albumin 4.3 g/dl (3.5-5.0); Alkaline Phosphatase 124 U/L (38-126); Blood Urea Nitrogen 28 mg/dl (7-17); Calcium 9.8 mg/dl (8.4-10.2); Carbon Dioxide 26 mmol/L (22-30); Chloride 100 mmol/L (98-107); Glucose 156 mg/dl (70-99); Potassium 4.3 mmol/L (3.5-5.1); Sodium 138 mmol/L (135-145); Total Protein 7.5 g/dl (6.3-8.2); eGFR 33.84
[2024-04-17 19:03] LABS: % Basophils 0.2 % (0-2); % Lymphocytes 3.7 % (20.5-51.1); % Monocytes 1.8 % (1.7-9.3); % Neutrophils 93.3 % (42.2-75.2); Absolute Immature Granulocytes 0.2 10^3/uL (0-0.05); Absolute Lymphocytes 0.6 10^3/uL (1.2-3.4); Absolute Monocytes 0.3 10^3/uL (0.1-0.6); Absolute Neutrophils 15.3 10^3/uL (1.4-6.5); Hematocrit 37.2 % (37.0-47.0); Hemoglobin 12.3 g/dL (12.0-16.0); Mean Corp Hgb Conc. 33.1 g/dL (33.0-37.0); Mean Corpuscular Hgb 30.3 pg (27.0-31.0); Mean Corpuscular Volume 91.6 fL (81.0-99.0); Mean Platelet Volume 9.7 fL (7.4-10.4); Nucleated Red Blood Cells % 0 %; Platelet Count 298 10^3/uL (130-400); Red Blood Cell Count 4.06 10^6/uL (4.20-5.40); Red Cell Dist. Width 14.3 % (11.5-14.5); White Blood Cell Count 16.4 10^3/uL (4.8-10.8)
--- NOTE | 2024-04-17 19:30 | ED.GENMED ---
History of Present Illness
General
Chief Complaint: Breathing Problem
Source: patient
Exam Limitations: none
Time Seen by Provider: 04/17/24 18:51
Travel History
Have you had any contact with someone who has COVID-19?: No
Do you have any symptoms of coronavirus? Fever > 100 degrees, chills, cough, shortness of breath, sore throat, loss of taste or smell, muscle aches, or headache?: No
History of Present Illness
History of Present Illness:
This is a 73 year old female that comes in with c/o back pain and weakness. States that she was here before with back pain and found that she had a new compression fracture and an old one that was found on MRI. States that today she was unable to
get OOB and then she couldn't get off the toilet. States that her pain had gotten some better after leaving but is bad again. States that she has VN and today her Oxygen level was down to 71% on her2 liters so she was increased to 4 liters. States
that she always has SOB. States that her abd was hard and she did have some diarrhea and was dizzy when she bent down. Denies any fever, chills, chest pain, abd pain, nausea, vomiting, headache, urinary burning.
Past History
Past History
ED Past Medical History: CHF, COPD (2-3 liters NC), Psychiatric (Anxiety, Depression, ) and Other (Spinal stenosis, morbid obesity, Bilateral kidney stones, Ulcers, Sleep apnea, )
ED Past Surgical History: Cholecystectomy, Orthopedic (Left shoulder reconstruction. ), Urological (Kidney surgery) and Other (Fasciotomy for fasciitis with wound VAC of lower back and thigh)
Social History
Tobacco: Former smoker
Alcohol: None
Drug: None
Personal:
Living: with family
Employment: Retired
Family History
Family History: Other (Noncontributory)
Review of Systems
Review of Systems
All Other Systems: ROS reviewed and negative except as documented in HPI and ROS
Constitutional: Reports no symptoms; Denies fever or chills
EENT: Reports no symptoms
Respiratory: Reports trouble breathing; Denies cough
Cardiac: Reports no symptoms; Denies chest pain
ABD/GI: Reports diarrhea and other (Abd felt hard); Denies nausea or vomiting
: Reports no symptoms; Denies dysuria, frequency or urgency
Musculoskeletal: Reports no symptoms
Skin: Reports no symptoms
Neurological: Reports dizzy; Denies headache
Psychiatric: Reports no symptoms
Phy Exam
General Physical Exam
General Presentation: no apparent distress
General age: appears stated age
General Skin: warm and dry
General Habitus: elderly and obese
General Mental: alert
General Hydration: appears well hydrated
ENT Exam
ENT Exam: TM's normal, pharynx normal and neck supple
Eye Exam
Eye Exam: EOMI
Cardiovascular Exam
Cardiovascular Exam: regular rate/rhythm and normal peripheral pulses
Pulmonary Exam
Pulmonary Exam: no respiratory distress, no rales, chest non tender, no crackles, no rhonchi, no cough, decreased breath sounds and generalized wheezing (Exp wheezing throughout)
Gastrointestinal Exam
Gastrointestinal Exam: normal bowel sounds, non tender, soft, no organomegaly, no pulsatile mass and non distended
Musculoskeletal Exam
Musculoskeletal Exam: full ROM and edema (Lower leg edema)
Skin Exam
Skin Exam: normal color, warm/dry, no rash and no petechia
Psychiatric Exam
Psychiatric Exam: normal mood/affect
Scores
Heart Failure Risk
Heart Failure Risk Score: Not Applicable
Course
Orders/Labs/Results
Orders:
Orders
04/17/24 15:44
EKG [Electrocardiogram (*1)] Urgent
Reason for Study: Shortness of Breath
04/17/24 15:45
EKG- Treatment ONCE
04/17/24 15:46
Chest [CR Chest - 2 Views ] Urgent
Comment:
Reason For Exam: shortness of breath
04/17/24 16:17
CMP [Comprehensive Metabolic Panel] Urgent
NT-proBNP Urgent
Comment: ADD ON, SERUM
04/17/24 18:45
Complete Blood Count/With Diff Urgent
04/17/24 19:29
Urinalysis Reflex To Culture Urgent
04/17/24 19:30
Ketorolac [Toradol] 30 mg IV NOW STA
Abnormal Lab Results
04/17/24 04/17/24
16:17 18:45
WBC 16.4 H 10^3/uL
(4.8-10.8)
RBC 4.06 L 10^6/uL
(4.20-5.40)
Abs Immat Gran (auto) 0.2 H 10^3/uL
(0-0.05)
Absolute Neuts (auto) 15.3 H 10^3/uL
(1.4-6.5)
Absolute Lymphs (auto) 0.6 L 10^3/uL
(1.2-3.4)
Immature Gran % 1.0 H %
(0-0.5)
Neutrophils % 93.3 H %
(42.2-75.2)
Lymphocytes % 3.7 L %
(20.5-51.1)
BUN 28 H mg/dl
(7-17)
Creatinine 1.6 H mg/dL
(0.6-1.0)
Glucose 156 H mg/dl
(70-99)
04/17/24 18:45
04/17/24 16:17
Leukocytosis, Chronic renal insufficiency, Glucose nonfasting.
Vital Signs
Initial and Last Documented VS:
Initial Vital Signs
Temp Pulse Resp BP Pulse Ox
97.9 F 110 25 130/83 92
04/17/24 15:41 04/17/24 15:41 04/17/24 15:41 04/17/24 15:41 04/17/24 15:41
Last Documented Vital Signs
Temp Pulse Resp BP Pulse Ox
97.9 F 79 21 129/62 90
04/17/24 15:41 04/18/24 01:45 04/18/24 01:45 04/18/24 01:00 04/18/24 01:45
MDM/Problems Addressed
Differential Diagnosis Includes:
Weakness, back pain
MDM/Problems Addressed:
This is a 73 year old female that comes in with c/o back pain and her pulse ox today was 71% on her 2 liters. States that the VN felt she needed to come to the hospital as patient was unable to get OOB today and then she couldn't get off the toilet.
'
Will get labs, chest X-ray and urine.
Back into see patient. Explained that her chest x-ray is negative for infection. Her Oxygen has been turned down to 2 liters and will recheck her Saturation. Patient states that she can't get OOB and that it is due more to the back pain. Explained
to patient that she may need Rehab for strengthening. Will admit. Hospitalist notified
Chronic conditions affecting care: COPD and Other (Compression fractures)
Acute Exacerbation and/or Progression of Chronic Illness: COPD
*Radiology
Radiology exam reviewed: radiology read reviewed (Chest-No acute disease of the chest. Mild cardiomegaly. New)
*Pulse Oximetry
Patient hypoxic: no
*EKG
Interpreted by ED Provider?: Yes
Heart Rate: 107
Rate: tachycardiac
Rhythm: sinus tachycardia
[place]: normal axis
Interval: normal interval
QRS Pattern: normal QRS
Ischemia: no ischemia
*Ladle Mechanic Interpretation
Rate: normal
Heart Rate: 97
Rhythm: sinus
*Critical Care Note
Total Time (30-74mins, 75-104mins- exclusive of procedures): Not Applicable
ED Attending Note
-
Portions of this chart may have been created with voice recognition software.� Occasional wrong word or��sound alike� substitutions may have occurred due to the inherent limitations of voice recognition software.
Discharge Plan
Departure
Patient Disposition: Admit
Date of Disposition: 04/17/24
Time of Disposition: 20:55
Admit to: Med/Surg
Presentation/result/management discussed w/ accepting MD/DO: Hospitalist
Patient with high blood pressure during this ER visit?: Yes
Condition: Good
Covid-19: Not Applicable
Discharge Problem:
Weakness, Back pain
Interventions
Interventions:
*Risk Screen - Suicide Last Done: 04/17/24 15:41
*General Assessment Last Done: 04/17/24 15:41
*Neglect/Abuse Screening Last Done: 04/17/24 15:41
ED- Fall Risk Assessment Last Done: 04/17/24 18:32
*ED COVID-19 Vaccine History Last Done: 04/17/24 18:32
ED- Cardiac Assessment Last Done: 04/17/24 18:32
ED-Musculoskeletal Assessment Last Done: 04/17/24 18:32
ED- Pulmonary Assessment Last Done: 04/17/24 18:32
[2024-04-17] MEDS: TORADOL 30 MG IV (19:45)
--- NOTE | 2024-04-17 21:16 | HPS.HSE ---
Addendum entered and electronically signed by Charles Coronado DO 04/18/24 00:53:
Patient seen and examined independently. Agree with findings and plan as set forth by JOSEFINA Diaz.
Patient is a 73y F with PMH significant for COPD with chronic hypoxemia, CHF and obesity who presents to ED complaining of low back pain and difficulty ambulating. Patient states that she has had low back pain x several months. Previous
evaluation has revealed L2 compression fracture. Patient states that her pain has been worse over the past 3 days or so. She denies any recent fall, injury or trauma.
In addition, patient noted that her O2 level this AM upon waking was 71%. She is on chronic O2 at 2-3 lpm and states that her AM pulse ox is usually in the 80s. She complains of MENENDEZ. She has gained about 4kg since her last admission.
Ass:
Acute on Chronic Back Pain
L2 Compression Fracture
Acute on Chronic HFpEF
Acute on Chronic Hypoxemic Respiratory Failure
COPD without Acute Exacerbation
JUAN ANTONIO not on CPAP
CKD III
Chronic Leukocytosis - likely secondary to steroids
Morbid Obesity
Anxiety / Depression
Plan:
Admit for further evaluation and treatment.
Continue efforts at pain control. PT / OT evaluations.
Consider repeat L-spine imaging if symptoms worsen or persist.
Change Lasix to IV for now and follow I/Os, weights, etc.
Follow for improvement in dyspnea, O2 needs, etc.
Titrate O2 as needed (baseline 2-3 lpm).
Continue other usual home medications.
Original Note:
Family Physician
-
Family Physician: Ant Diaz
Chief Complaint
-
back pain increased to legs, hypoxia on chronic 02
History of Present Illness
73-year-old female complaining of lower lumbar back pain with weakness to both legs. She reports she was seen here before with back pain and told she had a new L2 compression fracture on MRI 01/20/2024. She denies any recent injury or fall. She is
on lidocaine patch, Flexeril and oxycodone every 8 hours as needed. She reports the pain started approximately 3 days ago normally it is in her lower back, but today was in both legs she was having difficulty standing due to the pain. She reports
she walked out to the car holding her daughter's arm. She states her visiting nurse noticed that her oxygen was down to 71% on her chronic 2 L so increased to 4 L. She reports she is chronically short of breath. According to admission records
she has gained 4 kg in the past month. . She states her scale has been broken for the past month. She also reports eating some potato chips over the [facility] weekend. She was noted to be sleeping when I walked in the room with O2
saturation 87 percent on 2 L nasal cannula which did improve to 90% when awake and talking. She has history of sleep apnea with oxygen dropping down to 88% in the morning when she wakes up and takes about 1 hour to improve to 93%. She had a
pulmonology visit on Tuesday and was set up for outpatient sleep study evaluation. She is on chronic prednisone 20 mg daily and has been on multiple doses of prednisone for the past 2 years consistently. She was a 2 packs a day x 58 years but
quit 15 weeks ago.
She denies any fever, sore throat, chills, chest pain, cough, abdominal pain, nausea, vomiting, urinary symptoms.
The patient had a recent Admission 03/14 - 03/19/2024 for exacerbation of heart failure with hypokalemia she did not feel strong enough and discharged and requested rehab at that time. She has past medical history of heart failure with preserved EF,
chronic hypoxic respiratory failure, constipation, nonischemic PR injury, steroid-induced leukocytosis, chronic back pain secondary to L2 compression fracture, chronic COPD, CKD 3B, anxiety, depression, insomnia, morbid obesity, obstructive sleep
apnea intolerant to CPAP.
Medical History
Past Medical History
Past Medical History: Reports Other
Additional Past Medical History:
Chronic Hypoxic Respiratory Insufficiency
COPD
Former smoker quit 3 months ago 58 years 2 pack a day
Chronic HFpEF
CKD Stage III
Chronic Back Pain secondary to L2 Compression Fracture
Anxiety/Depression
Morbid Obesity
Obstructive Sleep Apnea
Past Surgical History: Reports Other
Additional Past Surgical History:
Cholecystectomy
Left Shoulder Reconstruction
Fasciotomy
Social History
Tobacco: Smoker
Living: Other (Currently receiving rehab at [facility])
Family History
Family History: Not pertinent
Allergies / Home Medications
Allergies reflects when Allergies were last updated in [facility].
Home Medications with original date entered in [facility]
Allergy/Medication List:
Allergies
Allergy/AdvReac Type Severity Reaction Status Date / Time
ampicillin Allergy Hives Verified 04/17/24 15:44
coconut Allergy Hives Verified 04/17/24 15:44
mustard Allergy Hives Verified 04/17/24 15:44
Home Medications
albuterol sulfate 90 mcg/actuation aerosol inhaler 2 puff inhalation R Q4HPRN PRN sob/wheezing 12/29/22
loratadine 5 mg-pseudoephedrine ER 120 mg tablet,extended release,12hr (Claritin-D 12 Hour) 1 tab PO DAILY Allergies 12/29/22
bupropion HCl 300 mg 24 hr tablet, extended release 300 mg PO DAILY Depression 07/19/23
sertraline 25 mg tablet 100 mg PO DAILY Depression 07/19/23
budesonide 160 mcg-glycopyr 9 mcg-formot 4.8 mcg/actuation HFA inhaler (Breztri Aerosphere) 2 inh inhalation R BID Lung/Breathing Issues 01/18/24
furosemide 40 mg tablet 40 mg PO DAILY Fluid Retention/Swelling 02/20/24
lidocaine 4 % topical patch 1 patch topical DAILY lower back 02/20/24
guaifenesin 600 mg tablet, extended release 12 hr 600 mg PO Q12 Lung/breathing issues #30 tabs 03/19/24
melatonin 5 mg tablet 10 mg (2 x 5 mg) PO HS Sleep #30 tabs 03/19/24
oxycodone 5 mg tablet 5 mg PO Q8HPRN PRN moderate pain #8 tabs 03/19/24
albuterol sulfate 2.5 mg/3 mL (0.083 %) solution for nebulization 2.5 mg inhalation R QIDPRN PRN sob/wheezing 04/17/24
cyclobenzaprine 10 mg tablet 5 mg PO TID PRN muscle spasm 04/17/24
prednisone 20 mg tablet 20 mg PO DAILY 04/17/24
Review of Systems
-
History Source: Patient
A 12 point ROS was completed and negative except as noted: Yes
Constitutional: Denies Fever or Chills
EENT: Denies Sore Throat or Runny Nose
Respiratory: Reports Trouble Breathing (Chronic shortness of breath); Denies Cough
Cardiac: Denies Chest Pain, Diaphoresis, Palpitations or Syncope
Abdomen/GI: Denies Abdominal Pain, Nausea, Vomiting, Diarrhea, Constipated, Bloody Stools or Black Stools
: Denies Dysuria, Frequency, Flank Pain, Incontinence, Difficulty Voiding or Urgency
Musculoskeletal: Reports Edema (Trace bilateral lower legs); Denies Joint Pain
Skin: Denies Itching or Rash
Neurological: Reports Other (Lower lumbar pain/radicular pain bilateral legs); Denies Dizzy, Headache or Weakness
Endocrine: Reports No Symptoms
Hematologic/Lymphatic: Reports No Symptoms
Psych: Reports Calm
Physical Exam
Vital Signs
Vital Signs
Temp Pulse Resp BP Pulse Ox
97.9 F 106 26 130/83 92
04/17/24 15:41 04/17/24 18:38 04/17/24 18:38 04/17/24 15:41 04/17/24 18:32
Physical Exam
General: Comfortable, Conversant and Morbidly Obese; No Pain, Fever or Chills
HEENT: NormoCephalic, Anicteric, Moist mucous membranes, PERRLA, [place] Conjunctivae, No Ptosis and Oxygen (2 L nasal cannula)
Respiratory: Wheezes (Expiratory bilaterally); No Rales or Rhonchi
Cardiac: S1/S2, Regular Rhythm and Peripheral Edema (Trace bilateral lower ankles); No Murmur, Rub or Gallop
Breast: Deferred by me
GI: Soft, Non Tender, Non Distended, Normal Bowel Sounds and No Hepatosplenomegaly
Rectal: Deferred by Provider
Genito-urinary: Deferred by me
Musculoskeletal: No Clubbing, No Cyanosis, Edema, Left Lower Extremity and Edema, Right Lower Extremity (Trace); No Edema, Left Upper Extremity or Edema, Right Upper Extremity
Skin: Warm and Dry; No Rash
Neuro: AO x 3, No Motor Deficits, Nonfocal/grossly intact, Cranial Nerves Intact and No Sensory Deficits; No Slurred Speech, Facial Droop or Tremors
Psych: Calm
Laboratory Results
-
04/17/24 18:45
04/17/24 16:17
Laboratory Results
Total Bilirubin 1.0 mg/dl (0.2-1.3) 04/17/24 16:17
AST 24 U/L (14-36) 04/17/24 16:17
ALT 25 U/L (0-35) 04/17/24 16:17
Alkaline Phosphatase 124 U/L (38-126) 04/17/24 16:17
Impression/Plan
-
Impression/plan:
Inpatient Tele
# Acute on chronic Back Pain secondary to L2 Compression Fracture
-Lumbar fracture on MRI since 01/20/2024
- cont Lidocaine/Flexeril/Tylenol 1000mg TID with oxycodone prn for breakthrough pain
-PT/OT/case management consult
# Acute on chronic HFpEF
#Acute on chronic Chronic respiratory failure on chronic 2 L nasal cannula baseline
Wt gain 4 kg / 8lbs past month 112kg was 109 kg on 03/17/24
88% on 2 liters NC
-I/O, daily weights
-on po Lasix 40 mg daily
- give Iv Lasix 40 mg bid
-Continue fluid restrict diet 48 ounce low-salt
- check 2D echo
CXR: Mild cardiomegaly
2D echo 08/18/2023: EF 50-55%, mild AR
#COPD, not acute exacerbation/chronic 2 L nasal cannula dependent
#Former smoker quit 3 months ago 58 years 2 pack a day
-cont Pulmicort/Duoneb QID and PRN
#Obstructive Sleep Apnea
intolerant of CPAP in the past
-Did drop to 87% on 2 L nasal cannula while sleeping
-Has upcoming sleep study appointment for reevaluation
#Constipation hx
- history of refusing bowel regimen
#Leukocytosis hx steroid induced
WBC 16.3 on chronic prednisone 20 mg daily
#Non-Ischemic Myocardial Injury in setting of heart failure march 2024
#CKD3b
Creat 1.6
folllow bmp
#Anxiety/Depression
-Continue Zoloft 100 mg daily, Wellbutrin 300 mg daily
#Insomnia
- cont melatonin
#Morbid Obesity due to excess calories
- Affects all aspects of care, encourage weight loss
#DVT prophylaxis-Heparin
DNR per patient
[2024-04-17 23:03] LABS: NT-proBNP 681 pg/ml
[2024-04-17] MEDS: LASIX 40 MG IV (23:27)
[2024-04-18] VITALS (18 sets, daily range): BP systolic 93–151; BP diastolic 43–85; PULSE 89–90; O2SAT 94–95; BMI 36.9
[2024-04-18 06:56] LABS: % Basophils 0.4 % (0-2); % Eosinophils 2.2 % (0-6); % Immature Granulocytes 1.1 % (0-0.5); % Lymphocytes 14.3 % (20.5-51.1); % Monocytes 5.8 % (1.7-9.3); % Neutrophils 76.2 % (42.2-75.2); Absolute Basophils 0.1 10^3/uL (0-0.2); Absolute Eosinophils 0.3 10^3/uL (0-0.7); Absolute Immature Granulocytes 0.2 10^3/uL (0-0.05); Absolute Lymphocytes 2.2 10^3/uL (1.2-3.4); Absolute Monocytes 0.9 10^3/uL (0.1-0.6); Hematocrit 36.6 % (37.0-47.0); Hemoglobin 11.8 g/dL (12.0-16.0); Mean Corp Hgb Conc. 32.2 g/dL (33.0-37.0); Mean Corpuscular Hgb 30.2 pg (27.0-31.0); Mean Corpuscular Volume 93.6 fL (81.0-99.0); Mean Platelet Volume 9.7 fL (7.4-10.4); Nucleated Red Blood Cells % 0 %; Platelet Count 261 10^3/uL (130-400); Red Blood Cell Count 3.91 10^6/uL (4.20-5.40); Red Cell Dist. Width 14.2 % (11.5-14.5); White Blood Cell Count 15.7 10^3/uL (4.8-10.8)
[2024-04-18 07:46] LABS: Blood Urea Nitrogen 31 mg/dl (7-17); Calcium 9.1 mg/dl (8.4-10.2); Carbon Dioxide 29 mmol/L (22-30); Chloride 100 mmol/L (98-107); Estimated Creatinine Clearance 33 ml/min; Glucose 98 mg/dl (70-99); Sodium 140 mmol/L (135-145); eGFR 27.54
[2024-04-18] MEDS: SYMBICORT 160/4.5 MCG INHALER INH (08:32)
[2024-04-18] MEDS: DELTASONE 20 MG PO (09:55)
[2024-04-18] MEDS: WELLBUTRIN XL (24 hour extended release) 300 MG PO (09:55)
[2024-04-18] MEDS: CLARITIN 5 MG PO (09:56)
[2024-04-18] MEDS: SUDAFED 12 HOUR (EXTENDED RELEASE) 120 MG PO (09:56)
[2024-04-18] MEDS: MUCINEX 600 MG PO ×2 (09:56→20:40)
[2024-04-18] MEDS: HEPARIN 5000 UNITS SC ×2 (09:57→20:41)
[2024-04-18] MEDS: ZOLOFT 100 MG PO (09:57)
[2024-04-18] MEDS: LASIX 40 MG IV (09:57)
[2024-04-18] MEDS: LIDOCAINE 4% PATCH 1 PATCH TOPICAL (10:02)
[2024-04-18] MEDS: FLEXERIL 5 MG PO ×2 (10:14→20:24)
[2024-04-18] MEDS: TYLENOL 650 MG PO (10:14)
--- NOTE | 2024-04-18 11:56 | W.PN.HOSP.TC ---
Today's Communication/Plan
-
This monitor vital signs and see plan
Consult cardiology
Continue with Lasix
Monitor renal function
UA pending, still not drawn
echo
Assessment / Plan
Assessment / Plan
General: Comfortable, Conversant and Morbidly Obese; No Pain, Fever or Chills
HEENT: NormoCephalic, Anicteric, Moist mucous membranes
Respiratory: Wheezes (Expiratory bilaterally)
Cardiac: S1/S2, Regular Rhythm and Peripheral Edema (Trace bilateral lower ankles)
GI: Soft, Non Tender, Non Distended, Normal Bowel Sounds and No Hepatosplenomegaly
Musculoskeletal: No Clubbing, No Cyanosis, Edema, Left Lower Extremity and Edema, Right Lower Extremity (Trace); No Edema, Left Upper Extremity or Edema, Right Upper Extremity
Neuro: AO x 3, No Motor Deficits, Nonfocal/grossly intact
Psych: Calm
Acute on chronic Back Pain secondary to L2 Compression Fracture
-Lumbar fracture on MRI since 01/20/2024
- cont Lidocaine/Flexeril/Tylenol 1000mg TID with oxycodone prn for breakthrough pain
-PT/OT/case management consult
Consider x-ray if symptoms do not improve
# Acute on chronic HFpEF
#Acute on chronic Chronic respiratory failure on chronic 2 L nasal cannula baseline
Wt gain 4 kg / 8lbs past month 112kg was 109 kg on 03/17/24
88% on 2 liters NC on admission
-on po Lasix 40 mg daily
-Given bump in creatinine, will do 40 IV daily lasix; per patient she responded well to IV lasix overnight
-Continue fluid restrict diet 48 ounce low-salt
- check 2D echo
CXR: Mild cardiomegaly
2D echo 08/18/2023: EF 50-55%, mild AR
Unclear why no echo was done recent admission
#CKD3b
creat now 1.9
Monitor with diuresis
Ua pending
#COPD, not acute exacerbation/chronic 2 L nasal cannula dependent
#Former smoker quit 3 months ago 58 years 2 pack a day
-cont Pulmicort/Duoneb QID and PRN
#Obstructive Sleep Apnea
intolerant of CPAP in the past
-Did drop to 87% on 2 L nasal cannula while sleeping
-Has upcoming sleep study appointment for reevaluation
#Constipation hx
- history of refusing bowel regimen
#Leukocytosis hx steroid induced
WBC 16.3 on chronic prednisone 20 mg daily; per patient she is on weaning steroids and starting tomorrow needs to be on 10mg
#Non-Ischemic Myocardial Injury in setting of heart failure march 2024
#Anxiety/Depression
-Continue Zoloft 100 mg daily, Wellbutrin 300 mg daily
#Insomnia
- cont melatonin
#Morbid Obesity due to excess calories
- Affects all aspects of care, encourage weight loss
#DVT prophylaxis-Heparin
DNR per patient
I spent a total of 52 minutes with the patient or on the floor. More than 50% of this time involved counseling and coordination of care.
Anticipated Discharge: > 48 hours
Subjective/Interval History
-
Date of Service: April 18, 2024
denies pain
Objective Data
-
Labs:
Laboratory Results
04/18/24
06:20
WBC 15.7 H
Hgb 11.8 L
Hct 36.6 L
Plt Count 261
Sodium 140
Potassium 4.0
Chloride 100
Carbon Dioxide 29
BUN 31 H
Creatinine 1.9 H
Glucose 98
Calcium 9.1
Vital Signs:
Vital Signs
Temp Pulse Resp BP Pulse Ox
97.9 F 93 25 118/55 98
04/17/24 15:41 04/18/24 11:00 04/18/24 11:00 04/18/24 10:21 04/18/24 11:00
I&O
04/17/24 04/18/24 04/19/24
06:59 06:59 06:59
Output Total 350 / 350
Balance -350 / -350
--- NOTE | 2024-04-18 13:38 | CON.CAR ---
Addendum entered and electronically signed by Noman Siegel MD 04/18/24 15:41:
-The patient's echocardiogram today revealed an LVEF of 55-60% with mild to moderate mitral regurgitation, mild aortic stenosis, and moderate aortic regurgitation.
-The patient can follow-up with Cardiology as an outpatient for management of valvular heart disease.
Addendum entered and electronically signed by Noman Siegel MD 04/18/24 15:11:
Patient seen and examined in collaboration with BIOMEDICAL ELECTRONICS TECHNICIAN; agree with below.
-Patient with significant COPD (on supplemental O2 at home), HFpEF, and CKD admitted with shortness of breath; concern for CHF, for which Cardiology was consulted.
-The patient admits to eating Pakistani food yesterday and appeared to have a significant salt load with mild increase in weight.
-The patient's BNP was only 681.
-Patient was aggressively diuresed, but now has a bump in creatinine.
-Recommend that patient simply resume her home dose of Lasix 40 mg PO daily; she was counseled on the importance of dietary compliance, as she should no longer eat Pakistani food.
-No further cardiac recommendations at this time; can follow-up with Cardiology as an outpatient.
Original Note:
Consultation
Consultation Request
Date/Time Consultation Requested: 04/18/24 1202
Date/Time Consultation Performed: 04/18/24 1353
Requesting Provider: Dr. Iverson
Performing Provider: Elvi ROCHA for Dr. Siegel
Reason for Consultation: CHF
Medical History
-
Chief Complaint: weakness, back pain, hypoxia
History of Present Illness:
73 y/o female (patient of Dr. Desai) with HFpEF, COPD on O2 by [place], anxiety/depression, CKD, obesity who is here for evaluation of back pain and weakness. She was also noted to have hypoxia. She is admitted for further management an we are
consulted for CHF exacerbation. Last month she was admitted with COPD and CHF. She briefly had IV diuresis. She is back with back pain, weakness with inability to ambulate, and hypoxia (71% per patient). She reports weight is up about 5 lbs, which
happened after a meal of Pakistani food (which she knows she needs to avoid now). She has abdominal bloating. She reports successful diuresis with IV Lasix.
Past Medical History
Past Medical History: CHF, COPD, Renal Failure (CKD) and Psychiatric (anxiety/depression)
Social History
Tobacco: Former Smoker (quit 15 weeks ago)
Living: With Family
Family History
Family History: Reviewed & Not Pertinent
Allergies / Home Medications
Allergy/AdvReac Type Severity Reaction Status Date / Time
ampicillin Allergy Hives Verified 04/17/24 15:44
coconut Allergy Hives Verified 04/17/24 15:44
mustard Allergy Hives Verified 04/17/24 15:44
�Medication �Instructions �Recorded �Confirmed �Type
albuterol sulfate 90 mcg/actuation 2 puff inhalation R Q4HPRN PRN 12/29/22 04/17/24 History
aerosol inhaler sob/wheezing
loratadine 5 mg-pseudoephedrine ER 1 tab PO DAILY Allergies 12/29/22 04/17/24 History
120 mg tablet,extended
release,12hr (Claritin-D 12 Hour)
bupropion HCl 300 mg 24 hr tablet, 300 mg PO DAILY Depression 07/19/23 04/17/24 History
extended release
sertraline 25 mg tablet 100 mg PO DAILY Depression 07/19/23 04/17/24 History
budesonide 160 mcg-glycopyr 9 2 inh inhalation R BID 01/18/24 04/17/24 History
mcg-formot 4.8 mcg/actuation HFA Lung/Breathing Issues
inhaler (Breztri Aerosphere)
furosemide 40 mg tablet 40 mg PO DAILY Fluid 02/20/24 04/17/24 History
Retention/Swelling
lidocaine 4 % topical patch 1 patch topical DAILY lower back 02/20/24 04/17/24 History
guaifenesin 600 mg tablet, 600 mg PO Q12 Lung/breathing 03/19/24 04/17/24 Rx
extended release 12 hr issues #30 tabs
melatonin 5 mg tablet 10 mg (2 x 5 mg) PO HS Sleep #30 03/19/24 04/17/24 Rx
tabs
oxycodone 5 mg tablet 5 mg PO Q8HPRN PRN moderate pain 03/19/24 04/17/24 Rx
#8 tabs
albuterol sulfate 2.5 mg/3 mL 2.5 mg inhalation R QIDPRN PRN 04/17/24 04/17/24 History
(0.083 %) solution for nebulization sob/wheezing
cyclobenzaprine 10 mg tablet 5 mg PO TID PRN muscle spasm 04/17/24 04/17/24 History
prednisone 20 mg tablet 20 mg PO DAILY inflammation 04/17/24 04/17/24 History
Review of Systems
-
History Source: Patient
All other systems: Negative unless noted
Constitutional: Weight Gain
Respiratory: Cough and Trouble Breathing
Abdomen/GI: Other (bloating)
Musculoskeletal: Other (back pain)
Neurological: Weakness
Physical Exam
Vital Signs
Temp Pulse Resp BP Pulse Ox
97.4 F 91 32 108/70 100
04/18/24 12:24 04/18/24 13:15 04/18/24 13:15 04/18/24 12:24 04/18/24 12:24
Lab Results
04/18/24 06:20
04/18/24 06:20
Rqi-Y-Eawrdpmwikp Pept 681 pg/ml 04/17/24 16:17
Physical Exam
General: Well Developed, Well Nourished and No Apparent Distress
HEENT: Normocephalic and Anicteric
Respiratory: Wheezes and Other (on O2 by NC)
Cardiac: Regular Rhythm
Skin: Warm and Dry
Neuro: AO x 3
Psych: Calm
Impression / Plan
-
[id number] HFpEF: mild
-in setting of dietary indiscretion
-s/p IV diuresis, which requires intensive monitoring. We will transition back to PO dosing tomorrow.
-CHF education, sodium/fluid restriction, monitor renal function/weight
-updated echo pending
COPD:
-wheezing to assessment, on steroids and breathing tx
-management per primary team
-quit smoking 15 weeks ago, which I congratulated her on and encouraged her to continue this path
Back pain:
-management per primary team
-PT/OT consulted
Data Reviewed
-
EKG: Tracing Personally Visualized and interpreted (ST 107 BPM)
Radiology: Report Reviewed by me (CXR: No acute disease of the chest. Mild cardiomegaly. New.)
Medical Tests (Nuc Med, Echo etc): Report Reviewed by me (Echo 08/18/23: Normal left ventricular systolic function. Left ventricular ejection fraction is 50-55%. Mild aortic regurgitation.)
Labs: Labs Reviewed by me
[2024-04-18 14:25] LABS: Urine Albumin Negative (Neg - Trace); Urine Bilirubin Negative (Negative); Urine Character Clear (Clear); Urine Color Yellow; Urine Glucose Negative (Negative); Urine Ketone Negative (Negative); Urine Leukocyte 2+ (Negative); Urine Nitrite Positive (Negative); Urine Occult Blood Negative (Negative); Urine Specific Gravity 1.015 (<1.030); Urine Urobilinogen Negative (Neg - 1+)
[2024-04-18 14:49] LABS: Urine Bacteria Moderate (Negative); Urine Red Blood Cell 0-2 /HPF (0-2); Urine White Cell 30-40 /HPF (0-5)
[2024-04-18] MEDS: TYLENOL PO (15:59)
[2024-04-18] MEDS: TYLENOL 1000 MG PO ×2 (16:00→20:44)
[2024-04-18] MEDS: DUONEB 3 ML INH ×2 (16:07→19:44)
--- NOTE | 2024-04-18 17:30 | PTCARENOTE ---
Received pt from ED.Pt awake,alert and oriented x3. Pt VSS 93% on 3L. Pt NSR on tele. Pt has back pain, medicated with tylenol prior to arrival to floor lidocaine patch in place. Pt oriented to room,call moyer within reach, plan of care ongoing.
[2024-04-18] MEDS: SYMBICORT 160/4.5 MCG INHALER 2 PUFF INH (19:44)
[2024-04-19] VITALS (8 sets, daily range): BP systolic 104–135; BP diastolic 45–64; BMI 37.2
[2024-04-19] MEDS: ROXICODONE 5 MG PO ×3 (00:10→11:59)
[2024-04-19 05:36] LABS: % Basophils 0.3 % (0-2); % Eosinophils 2.1 % (0-6); % Immature Granulocytes 0.9 % (0-0.5); % Monocytes 6.8 % (1.7-9.3); % Neutrophils 75.9 % (42.2-75.2); Absolute Eosinophils 0.3 10^3/uL (0-0.7); Absolute Immature Granulocytes 0.1 10^3/uL (0-0.05); Absolute Lymphocytes 1.9 10^3/uL (1.2-3.4); Absolute Monocytes 0.9 10^3/uL (0.1-0.6); Absolute Neutrophils 10.3 10^3/uL (1.4-6.5); Hematocrit 31.7 % (37.0-47.0); Hemoglobin 10.3 g/dL (12.0-16.0); Mean Corp Hgb Conc. 32.5 g/dL (33.0-37.0); Mean Corpuscular Volume 92.4 fL (81.0-99.0); Mean Platelet Volume 9.6 fL (7.4-10.4); Nucleated Red Blood Cells % 0 %; Platelet Count 244 10^3/uL (130-400); Red Blood Cell Count 3.43 10^6/uL (4.20-5.40); Red Cell Dist. Width 14.2 % (11.5-14.5); White Blood Cell Count 13.5 10^3/uL (4.8-10.8)
[2024-04-19 06:04] LABS: Blood Urea Nitrogen 39 mg/dl (7-17); Calcium 8.9 mg/dl (8.4-10.2); Carbon Dioxide 28 mmol/L (22-30); Chloride 99 mmol/L (98-107); Estimated Creatinine Clearance 31 ml/min; Glucose 79 mg/dl (70-99); Potassium 3.7 mmol/L (3.5-5.1); Sodium 136 mmol/L (135-145); eGFR 24.42
[2024-04-19] MEDS: FLEXERIL 5 MG PO (07:03)
[2024-04-19] MEDS: DUONEB 3 ML INH ×4 (07:18→20:25)
[2024-04-19] MEDS: SYMBICORT 160/4.5 MCG INHALER 2 PUFF INH ×2 (07:19→20:25)
[2024-04-19] MEDS: LIDOCAINE 4% PATCH 1 PATCH TOPICAL (08:18)
[2024-04-19] MEDS: HEPARIN 5000 UNITS SC ×2 (08:20→21:03)
[2024-04-19] MEDS: MUCINEX 600 MG PO ×2 (08:20→21:03)
[2024-04-19] MEDS: CLARITIN 5 MG PO (08:21)
[2024-04-19] MEDS: TYLENOL 1000 MG PO ×3 (08:22→21:05)
[2024-04-19] MEDS: DELTASONE 10 MG PO (08:22)
[2024-04-19] MEDS: WELLBUTRIN XL (24 hour extended release) 300 MG PO (08:22)
[2024-04-19] MEDS: ZOLOFT 100 MG PO (08:23)
[2024-04-19] MEDS: SUDAFED 12 HOUR (EXTENDED RELEASE) 120 MG PO (08:37)
[2024-04-19] MEDS: LASIX PO (09:13)
[2024-04-19] MEDS: STERILE WATER FOR INJECTION 10 ML IV (10:17)
[2024-04-19] MEDS: ROCEPHIN 1000 MG IV (10:18)
--- NOTE | 2024-04-19 11:18 | PN.CDI ---
CDI
- -
CDI:
Physician Documentation Request
Admit Date: 04/17/24 22:21
Dear Doctor Kishor,
Clinical Indicators:
Patient admitted with low back pain and acute on chronic HFpEF. PMH includes CKD 3b.
Lasix IV 40mg IV x 2 doses.
Cr/GFR trend:
04/17/24 04/18/24
16:17 06:20
Creatinine 1.6 H 1.9 H
eGFR 33.84 27.54
Please clarify which of the following accurately represents the patient's renal status:
[place] on CKD 3b
CKD 3b with rise in creatinine only
Other, please specify
Criteria for [place]*
1 Increase in serum creatinine by > or = to 0.3 mg/dL (> or = to 26.5 micromol/L) within 48 hours, OR
2 Increase in serum creatinine to > or = to 1.5 times baseline, which is known or presumed to have occurred within 7 days, OR
3 Urine volume < 0.5 nL/kg/hour for six hours
Stages of Chronic Kidney Disease*
Level Description GFR
G1 Normal or High >90
G2 Mildly decreased 60-89
G3a Mildly to moderately decreased 45-59
G3b Moderately to severely decreased 30-44
G4 Severely decreased 15-29
G5 Kidney failure <15
Use of terms such as suspected, likely, concern for, or probable (associated with a specific diagnosis that is being evaluated, monitored, or treated as if it exists) are acceptable and can be coded in the inpatient setting, when documented at the
time of discharge.
Thank you,
FANG Briones RN
CDI Specialist
available via tiger text
Please use your independent medical judgment in providing your response.
*Source: Kidney Disease: Improving Global Outcomes (KDIGO) 2012
--- NOTE | 2024-04-19 12:39 | W.PN.HOSP.TC ---
Today's Communication/Plan
-
Monitor vital signs and see plan
Antibiotics
PT/OT
Pain control
Bladder scan
Monitor renal function closely
Assessment / Plan
Assessment / Plan
General: Comfortable, Conversant and Morbidly Obese; No Pain, Fever or Chills
HEENT: NormoCephalic, Anicteric, Moist mucous membranes
Respiratory: Wheezes (Expiratory bilaterally)
Cardiac: S1/S2, Regular Rhythm and Peripheral Edema (Trace bilateral lower ankles)
GI: Soft, Non Tender, Non Distended, Normal Bowel Sounds and No Hepatosplenomegaly
Musculoskeletal: No Clubbing, No Cyanosis, Edema, Left Lower Extremity and Edema, Right Lower Extremity (Trace); No Edema, Left Upper Extremity or Edema, Right Upper Extremity
Neuro: AO x 3, No Motor Deficits, Nonfocal/grossly intact
Psych: Calm
Acute on chronic Back Pain secondary to L2 Compression Fracture
-Lumbar fracture on MRI since 01/20/2024
- cont Lidocaine/Flexeril/Tylenol 1000mg TID with oxycodone prn for breakthrough pain
-PT/OT/case management consult
Consider x-ray if symptoms do not improve
# Acute on chronic HFpEF
#Acute on chronic Chronic respiratory failure on chronic 2 L nasal cannula baseline
88% on 2 liters NC on admission
-on po Lasix 40 mg daily
-Given bump in creatinine, IV lasix stopped and now on PO; hold lasix today
-Continue fluid restrict diet 48 ounce low-salt
- check 2D echo EF 55 to 60%, mild aortic stenosis
CXR: Mild cardiomegaly
2D echo 08/18/2023: EF 50-55%, mild AR
#[place] on CKD3b
Suspect secondary to diuresis
2.1 today
Monitor with diuresis
UA suggestive of pyuria, urine culture pending
Suspect UTI
Urine culture pending
Continue ceftriaxone
bladder scan
#COPD, not acute exacerbation/chronic 2 L nasal cannula dependent
#Former smoker quit 3 months ago 58 years 2 pack a day
-cont Pulmicort/Duoneb QID and PRN
#Obstructive Sleep Apnea
intolerant of CPAP in the past
-Did drop to 87% on 2 L nasal cannula while sleeping
-Has upcoming sleep study appointment for reevaluation
#Constipation hx
- history of refusing bowel regimen
#Leukocytosis hx steroid induced
on prednisone
#Non-Ischemic Myocardial Injury in setting of heart failure march 2024
#Anxiety/Depression
-Continue Zoloft, Wellbutrin
#Insomnia
- cont melatonin
#Morbid Obesity due to excess calories
- Affects all aspects of care, encourage weight loss
#DVT prophylaxis-Heparin
DNR per patient
I spent a total of 51 minutes with the patient or on the floor. More than 50% of this time involved counseling and coordination of care.
Anticipated Discharge: > 48 hours
Subjective/Interval History
-
Date of Service: April 19, 2024
has pain
Objective Data
-
Labs:
Laboratory Results
04/19/24
05:07
WBC 13.5 H
Hgb 10.3 L
Hct 31.7 L
Plt Count 244
Sodium 136
Potassium 3.7
Chloride 99
Carbon Dioxide 28
BUN 39 H
Creatinine 2.1 H
Glucose 79
Calcium 8.9
Vital Signs:
Vital Signs
Temp Pulse Resp BP Pulse Ox
97.8 F 86 20 104/45 94
04/19/24 11:38 04/19/24 11:38 04/19/24 11:38 04/19/24 11:38 04/19/24 11:38
I&O
04/18/24 04/19/24 04/20/24
06:59 06:59 06:59
Intake Total 120 / 120
Output Total 750 / 750
Balance -630 / -630
--- NOTE | 2024-04-19 16:49 | CM ---
Flory was admitted via ED due to back pain. Recent stays at [facility], but most recently has been staying with her daughter and family in a ranch style home. PT recommends return to SNF. Will need to determine if she has any SNF days left.
Will follow up with [facility] admissions in am.
[2024-04-20] VITALS (7 sets, daily range): BP systolic 118–146; BP diastolic 57–80; PULSE 111; O2SAT 93; BMI 37.0
[2024-04-20] MEDS: ROXICODONE 5 MG PO ×2 (03:50→16:03)
[2024-04-20] MEDS: DUONEB 3 ML INH ×4 (07:47→19:44)
[2024-04-20] MEDS: SYMBICORT 160/4.5 MCG INHALER 2 PUFF INH ×2 (07:47→19:44)
[2024-04-20 08:40] LABS: % Basophils 0.6 % (0-2); % Eosinophils 3.9 % (0-6); % Immature Granulocytes 1.1 % (0-0.5); % Lymphocytes 19.7 % (20.5-51.1); % Monocytes 6.5 % (1.7-9.3); % Neutrophils 68.2 % (42.2-75.2); Absolute Basophils 0.1 10^3/uL (0-0.2); Absolute Eosinophils 0.5 10^3/uL (0-0.7); Absolute Immature Granulocytes 0.1 10^3/uL (0-0.05); Absolute Lymphocytes 2.4 10^3/uL (1.2-3.4); Absolute Monocytes 0.8 10^3/uL (0.1-0.6); Absolute Neutrophils 8.2 10^3/uL (1.4-6.5); Hemoglobin 10.9 g/dL (12.0-16.0); Mean Corp Hgb Conc. 31.1 g/dL (33.0-37.0); Mean Corpuscular Hgb 30.1 pg (27.0-31.0); Mean Corpuscular Volume 96.7 fL (81.0-99.0); Mean Platelet Volume 9.5 fL (7.4-10.4); Nucleated Red Blood Cells % 0 %; Platelet Count 238 10^3/uL (130-400); Red Blood Cell Count 3.62 10^6/uL (4.20-5.40); Red Cell Dist. Width 14.3 % (11.5-14.5)
[2024-04-20] MEDS: SUDAFED 12 HOUR (EXTENDED RELEASE) 120 MG PO (08:41)
[2024-04-20] MEDS: TYLENOL 1000 MG PO ×3 (08:41→21:06)
[2024-04-20] MEDS: MUCINEX 600 MG PO ×2 (08:41→21:06)
[2024-04-20] MEDS: ZOLOFT 100 MG PO (08:41)
[2024-04-20] MEDS: DELTASONE 10 MG PO (08:42)
[2024-04-20] MEDS: WELLBUTRIN XL (24 hour extended release) 300 MG PO (08:42)
[2024-04-20] MEDS: LASIX 40 MG PO (08:42)
[2024-04-20] MEDS: HEPARIN 5000 UNITS SC ×2 (08:42→21:06)
[2024-04-20] MEDS: CLARITIN 5 MG PO (08:42)
[2024-04-20] MEDS: LIDOCAINE 4% PATCH 1 PATCH TOPICAL (08:42)
[2024-04-20] MEDS: FLEXERIL 5 MG PO (08:48)
[2024-04-20 09:26] LABS: Blood Urea Nitrogen 31 mg/dl (7-17); Carbon Dioxide 29 mmol/L (22-30); Chloride 104 mmol/L (98-107); Estimated Creatinine Clearance 38 ml/min; Glucose 78 mg/dl (70-99); Sodium 140 mmol/L (135-145); eGFR 31.47
[2024-04-20] MEDS: STERILE WATER FOR INJECTION 10 ML IV (09:43)
[2024-04-20] MEDS: ROCEPHIN 1000 MG IV (09:43)
--- NOTE | 2024-04-20 12:50 | W.PN.HOSP.TC ---
Today's Communication/Plan
-
Monitor vital signs and see plan
Pain control
PT/OT
DC planning
Switch antibiotics to oral to complete UTI course
Monitor renal function
Assessment / Plan
Assessment / Plan
General: Comfortable, Conversant and Morbidly Obese; No Pain, Fever or Chills
HEENT: NormoCephalic, Anicteric, Moist mucous membranes
Respiratory: Wheezes (Expiratory bilaterally)
Cardiac: S1/S2, Regular Rhythm and Peripheral Edema (Trace bilateral lower ankles)
GI: Soft, Non Tender, Non Distended, Normal Bowel Sounds and No Hepatosplenomegaly
Musculoskeletal: No Clubbing, No Cyanosis, Edema, Left Lower Extremity and Edema, Right Lower Extremity (Trace); No Edema, Left Upper Extremity or Edema, Right Upper Extremity
Neuro: AO x 3, No Motor Deficits, Nonfocal/grossly intact
Psych: Calm
Acute on chronic Back Pain secondary to L2 Compression Fracture
-Lumbar fracture on MRI since 01/20/2024
- cont Lidocaine/Flexeril/Tylenol 1000mg TID with oxycodone prn for breakthrough pain
-PT/OT/case management consult
Consider x-ray if symptoms do not improve
# Acute on chronic HFpEF
#Acute on chronic Chronic respiratory failure on chronic 2 L nasal cannula baseline
88% on 2 liters NC on admission
-on po Lasix 40 mg daily
-Given bump in creatinine, IV lasix stopped and now on PO; lasix held 04/19
-Continue fluid restrict diet 48 ounce low-salt
- check 2D echo EF 55 to 60%, mild aortic stenosis
CXR: Mild cardiomegaly
2D echo 08/18/2023: EF 50-55%, mild AR
#[place] on CKD3b
Suspect secondary to diuresis
now slowly improving, 1.7 today
Monitor with diuresis
Suspect UTI
Urine culture with pansensitive E. coli
Switch antibiotic to cefdinir to complete course
bladder scan
#COPD, not acute exacerbation/chronic 2 L nasal cannula dependent
#Former smoker quit 3 months ago 58 years 2 pack a day
-cont Pulmicort/Duoneb QID and PRN
#Obstructive Sleep Apnea
intolerant of CPAP in the past
-Did drop to 87% on 2 L nasal cannula while sleeping
-Has upcoming sleep study appointment for reevaluation
#Constipation hx
- history of refusing bowel regimen
#Leukocytosis hx steroid induced
on prednisone
#Non-Ischemic Myocardial Injury in setting of heart failure march 2024
#Anxiety/Depression
-Continue Zoloft, Wellbutrin
#Insomnia
- cont melatonin
#Morbid Obesity due to excess calories
- Affects all aspects of care, encourage weight loss
#DVT prophylaxis-Heparin
DNR per patient
I spent a total of 52 minutes with the patient or on the floor. More than 50% of this time involved counseling and coordination of care.
Anticipated Discharge: Within 24 hours
Subjective/Interval History
-
Date of Service: April 20, 2024
has some pain
Objective Data
-
Labs:
Laboratory Results
04/20/24
08:18
WBC 12.0 H
Hgb 10.9 L
Hct 35.0 L
Plt Count 238
Sodium 140
Potassium 4.0
Chloride 104
Carbon Dioxide 29
BUN 31 H
Creatinine 1.7 H
Glucose 78
Calcium 9.0
Vital Signs:
Vital Signs
Temp Pulse Resp BP Pulse Ox
98.1 F 95 20 126/60 92
04/20/24 11:11 04/20/24 11:11 04/20/24 11:11 04/20/24 11:11 04/20/24 11:11
I&O
04/19/24 04/20/24 04/21/24
06:59 06:59 06:59
Intake Total 120 / 120 720 / 720
Output Total 750 / 750 400 / 400
Balance -630 / -630 320 / 320
[2024-04-21] MEDS: FLEXERIL 5 MG PO ×4 (00:04→23:19)
[2024-04-21] MEDS: ROXICODONE 5 MG PO ×4 (00:04→23:19)
[2024-04-21] MEDS: DUONEB 3 ML INH ×5 (00:32→17:57)
[2024-04-21 06:00] VITALS: BMI 37.2
[2024-04-21] MEDS: SYMBICORT 160/4.5 MCG INHALER 2 PUFF INH ×2 (06:15→17:57)
[2024-04-21 07:17] VITALS: BP 132/61
[2024-04-21 09:36] LABS: % Basophils 0.5 % (0-2); % Eosinophils 4.2 % (0-6); % Immature Granulocytes 0.9 % (0-0.5); % Lymphocytes 20.3 % (20.5-51.1); % Monocytes 6.2 % (1.7-9.3); % Neutrophils 67.9 % (42.2-75.2); Absolute Basophils 0.1 10^3/uL (0-0.2); Absolute Eosinophils 0.5 10^3/uL (0-0.7); Absolute Immature Granulocytes 0.1 10^3/uL (0-0.05); Absolute Lymphocytes 2.6 10^3/uL (1.2-3.4); Absolute Monocytes 0.8 10^3/uL (0.1-0.6); Absolute Neutrophils 8.5 10^3/uL (1.4-6.5); Hematocrit 37.3 % (37.0-47.0); Hemoglobin 11.5 g/dL (12.0-16.0); Mean Corp Hgb Conc. 30.8 g/dL (33.0-37.0); Mean Corpuscular Hgb 30.1 pg (27.0-31.0); Mean Corpuscular Volume 97.6 fL (81.0-99.0); Mean Platelet Volume 9.5 fL (7.4-10.4); Nucleated Red Blood Cells % 0.2 %; Platelet Count 235 10^3/uL (130-400); Red Blood Cell Count 3.82 10^6/uL (4.20-5.40); Red Cell Dist. Width 14.3 % (11.5-14.5); White Blood Cell Count 12.6 10^3/uL (4.8-10.8)
[2024-04-21 09:59] LABS: Blood Urea Nitrogen 31 mg/dl (7-17); Calcium 9.2 mg/dl (8.4-10.2); Carbon Dioxide 31 mmol/L (22-30); Chloride 103 mmol/L (98-107); Estimated Creatinine Clearance 44 ml/min; Glucose 77 mg/dl (70-99); Potassium 3.8 mmol/L (3.5-5.1); Sodium 141 mmol/L (135-145); eGFR 36.57
[2024-04-21] MEDS: TYLENOL 1000 MG PO ×3 (10:06→20:44)
[2024-04-21] MEDS: ZOLOFT 100 MG PO (10:07)
[2024-04-21] MEDS: OMNICEF 300 MG PO ×2 (10:07→20:44)
[2024-04-21] MEDS: LASIX 40 MG PO (10:07)
[2024-04-21] MEDS: DELTASONE 10 MG PO (10:07)
[2024-04-21] MEDS: MUCINEX 600 MG PO ×2 (10:08→20:44)
[2024-04-21] MEDS: WELLBUTRIN XL (24 hour extended release) 300 MG PO (10:08)
[2024-04-21] MEDS: CLARITIN 5 MG PO (10:08)
[2024-04-21] MEDS: HEPARIN 5000 UNITS SC ×2 (10:09→20:44)
[2024-04-21] MEDS: SUDAFED 12 HOUR (EXTENDED RELEASE) 120 MG PO (10:09)
[2024-04-21] MEDS: LIDOCAINE 4% PATCH 1 PATCH TOPICAL (10:09)
--- NOTE | 2024-04-21 13:06 | W.PN.HOSP.TC ---
Today's Communication/Plan
-
Monitor vital signs and see plan
Monitor renal function with diuresis
Pain control
Continue abx
Discharge planning
Assessment / Plan
Assessment / Plan
General: Comfortable, Conversant and Morbidly Obese; No Pain, Fever or Chills
HEENT: NormoCephalic, Anicteric, Moist mucous membranes
Respiratory: Wheezes (Expiratory bilaterally)
Cardiac: S1/S2, Regular Rhythm and Peripheral Edema (Trace bilateral lower ankles)
GI: Soft, Non Tender, Non Distended, Normal Bowel Sounds and No Hepatosplenomegaly
Musculoskeletal: No Clubbing, No Cyanosis, Edema, Left Lower Extremity and Edema, Right Lower Extremity (Trace); No Edema, Left Upper Extremity or Edema, Right Upper Extremity
Neuro: AO x 3, No Motor Deficits, Nonfocal/grossly intact
Psych: Calm
Acute on chronic Back Pain secondary to L2 Compression Fracture
-Lumbar fracture on MRI since 01/20/2024
- cont Lidocaine/Flexeril/Tylenol 1000mg TID with oxycodone prn for breakthrough pain
-PT/OT/case management consult
Consider x-ray if symptoms do not improve
# Acute on chronic HFpEF
#Acute on chronic Chronic respiratory failure on chronic 2 L nasal cannula baseline
88% on 2 liters NC on admission
-on po Lasix 40 mg daily
-Given bump in creatinine, IV lasix stopped and now on PO; lasix held 04/19, now back on PO lasix
-Continue fluid restrict diet 48 ounce low-salt
- check 2D echo EF 55 to 60%, mild aortic stenosis
CXR: Mild cardiomegaly
2D echo 08/18/2023: EF 50-55%, mild AR
#[place] on CKD3b
Suspect secondary to diuresis
now slowly improving, 1.5 today
Monitor with diuresis
Suspect UTI
Urine culture with pansensitive E. coli
Switch antibiotic to cefdinir to complete course
bladder scan
#COPD, not acute exacerbation/chronic 2 L nasal cannula dependent
#Former smoker quit 3 months ago 58 years 2 pack a day
-cont Pulmicort/Duoneb QID and PRN
#Obstructive Sleep Apnea
intolerant of CPAP in the past
-Did drop to 87% on 2 L nasal cannula while sleeping
-Has upcoming sleep study appointment for reevaluation
#Constipation hx
- history of refusing bowel regimen
#Leukocytosis hx steroid induced
on prednisone
#Non-Ischemic Myocardial Injury in setting of heart failure march 2024
#Anxiety/Depression
-Continue Zoloft, Wellbutrin
#Insomnia
- cont melatonin
#Morbid Obesity due to excess calories
- Affects all aspects of care, encourage weight loss
#DVT prophylaxis-Heparin
DNR per patient
I spent a total of 51 minutes with the patient or on the floor. More than 50% of this time involved counseling and coordination of care.
Anticipated Discharge: Within 24 hours
Subjective/Interval History
-
Date of Service: April 21, 2024
has some pain
Objective Data
-
Labs:
Laboratory Results
04/21/24
09:16
WBC 12.6 H
Hgb 11.5 L
Hct 37.3
Plt Count 235
Sodium 141
Potassium 3.8
Chloride 103
Carbon Dioxide 31 H
BUN 31 H
Creatinine 1.5 H
Glucose 77
Calcium 9.2
Vital Signs:
Vital Signs
Temp Pulse Resp BP Pulse Ox
97.5 F 87 16 132/61 93
04/21/24 07:17 04/21/24 07:17 04/21/24 07:17 04/21/24 07:17 04/21/24 07:17
I&O
0604/21/24 04/22/24
06:59 06:59 06:59
Intake Total 720 / 720 720 / 720
Output Total 400 / 400 400 / 400
Balance 320 / 320 320 / 320
[2024-04-21 15:40] VITALS: BP 137/64
--- NOTE | 2024-04-21 16:10 | CM ---
Patient seen bedside, requesting referral sent to [facility]. CM inquiring about additional facilities to send referrals to, patient reports she would like a list of SNF, CM will provide to patient. CM will continue to follow for discharge
planning needs.
Plan; SNF pending accepting facility, check medicare days.
[2024-04-21 23:33] VITALS: BP 162/103
[2024-04-22 03:35] VITALS: BP 100/64
[2024-04-22] MEDS: ROXICODONE 5 MG PO ×2 (05:49→21:52)
[2024-04-22] MEDS: FLEXERIL 5 MG PO ×2 (05:49→21:32)
[2024-04-22 06:00] VITALS: BMI 36.8
[2024-04-22 07:06] VITALS: BP 115/64
[2024-04-22] MEDS: DUONEB 3 ML INH ×4 (07:42→20:03)
[2024-04-22] MEDS: SYMBICORT 160/4.5 MCG INHALER 2 PUFF INH ×2 (07:42→20:03)
[2024-04-22 08:07] LABS: % Basophils 0.5 % (0-2); % Eosinophils 3.7 % (0-6); % Immature Granulocytes 1.5 % (0-0.5); % Monocytes 6.3 % (1.7-9.3); Absolute Basophils 0.1 10^3/uL (0-0.2); Absolute Eosinophils 0.5 10^3/uL (0-0.7); Absolute Immature Granulocytes 0.2 10^3/uL (0-0.05); Absolute Lymphocytes 2.5 10^3/uL (1.2-3.4); Absolute Monocytes 0.9 10^3/uL (0.1-0.6); Absolute Neutrophils 9.6 10^3/uL (1.4-6.5); Hematocrit 35.3 % (37.0-47.0); Hemoglobin 11.4 g/dL (12.0-16.0); Mean Corp Hgb Conc. 32.3 g/dL (33.0-37.0); Mean Corpuscular Hgb 30.4 pg (27.0-31.0); Mean Corpuscular Volume 94.1 fL (81.0-99.0); Mean Platelet Volume 9.5 fL (7.4-10.4); Nucleated Red Blood Cells % 0 %; Platelet Count 253 10^3/uL (130-400); Red Blood Cell Count 3.75 10^6/uL (4.20-5.40); Red Cell Dist. Width 14.1 % (11.5-14.5); White Blood Cell Count 13.8 10^3/uL (4.8-10.8)
[2024-04-22 08:19] LABS: Blood Urea Nitrogen 30 mg/dl (7-17); Calcium 9.5 mg/dl (8.4-10.2); Carbon Dioxide 29 mmol/L (22-30); Chloride 102 mmol/L (98-107); Estimated Creatinine Clearance 38 ml/min; Glucose 83 mg/dl (70-99); Potassium 3.9 mmol/L (3.5-5.1); Sodium 138 mmol/L (135-145); eGFR 31.27
[2024-04-22] MEDS: MUCINEX 600 MG PO ×2 (08:33→21:32)
[2024-04-22] MEDS: ZOLOFT 100 MG PO (08:33)
[2024-04-22] MEDS: OMNICEF 300 MG PO ×2 (08:34→21:32)
[2024-04-22] MEDS: LASIX 40 MG PO (08:34)
[2024-04-22] MEDS: WELLBUTRIN XL (24 hour extended release) 300 MG PO (08:34)
[2024-04-22] MEDS: CLARITIN 5 MG PO (08:34)
[2024-04-22] MEDS: TYLENOL 1000 MG PO ×3 (08:34→21:33)
[2024-04-22] MEDS: LIDOCAINE 4% PATCH TOPICAL (08:36)
[2024-04-22] MEDS: HEPARIN 5000 UNITS SC ×2 (08:36→21:33)
[2024-04-22] MEDS: DELTASONE 10 MG PO (08:36)
[2024-04-22] MEDS: SUDAFED 12 HOUR (EXTENDED RELEASE) 120 MG PO (08:37)
[2024-04-22] MEDS: FLUSH (NSS) 1 FLUSH IV (08:37)
--- NOTE | 2024-04-22 12:00 | W.PN.HOSP.TC ---
Today's Communication/Plan
-
Monitor vital signs see plan
Hold Lasix
Pain control
Needs SNF placement
Monitor renal function
Assessment / Plan
Assessment / Plan
General: Comfortable, Conversant and Morbidly Obese; No Pain, Fever or Chills
HEENT: NormoCephalic, Anicteric, Moist mucous membranes
Respiratory: Wheezes (Expiratory bilaterally)
Cardiac: S1/S2, Regular Rhythm and Peripheral Edema (Trace bilateral lower ankles)
GI: Soft, Non Tender, Non Distended, Normal Bowel Sounds and No Hepatosplenomegaly
Musculoskeletal: No Clubbing, No Cyanosis, Edema, Left Lower Extremity and Edema, Right Lower Extremity (Trace); No Edema, Left Upper Extremity or Edema, Right Upper Extremity
Neuro: AO x 3, No Motor Deficits, Nonfocal/grossly intact
Psych: Calm
Acute on chronic Back Pain secondary to L2 Compression Fracture
-Lumbar fracture on MRI since 01/20/2024
- cont Lidocaine/Flexeril/Tylenol 1000mg TID with oxycodone prn for breakthrough pain
-PT/OT/case management consult
Consider x-ray if symptoms do not improve
# Acute on chronic HFpEF
#Acute on chronic Chronic respiratory failure on chronic 2 L nasal cannula baseline
88% on 2 liters NC on admission
-on po Lasix 40 mg daily
-Given bump in creatinine, IV lasix stopped and now on PO; hold lasix again 04/22
-Continue fluid restrict diet 48 ounce low-salt
- check 2D echo EF 55 to 60%, mild aortic stenosis
CXR: Mild cardiomegaly
2D echo 08/18/2023: EF 50-55%, mild AR
#[place] on CKD3b
Suspect secondary to diuresis
now slowly improving, 1.7 today
Monitor with diuresis
Suspect UTI
Urine culture with pansensitive E. coli
Switched antibiotic to cefdinir to complete course
bladder scan
#COPD, not acute exacerbation/chronic 2 L nasal cannula dependent
#Former smoker quit 3 months ago 58 years 2 pack a day
-cont Pulmicort/Duoneb QID and PRN
#Obstructive Sleep Apnea
intolerant of CPAP in the past
-Did drop to 87% on 2 L nasal cannula while sleeping
-Has upcoming sleep study appointment for reevaluation
#Constipation hx
- history of refusing bowel regimen
#Leukocytosis hx steroid induced
on prednisone
#Non-Ischemic Myocardial Injury in setting of heart failure march 2024
#Anxiety/Depression
-Continue Zoloft, Wellbutrin
#Insomnia
- cont melatonin
#Morbid Obesity due to excess calories
- Affects all aspects of care, encourage weight loss
#DVT prophylaxis-Heparin
DNR per patient
Anticipated Discharge: 24 - 48 hours
Subjective/Interval History
-
Date of Service: April 22, 2024
has some pain
Objective Data
-
Labs:
Laboratory Results
04/22/24
07:41
WBC 13.8 H
Hgb 11.4 L
Hct 35.3 L
Plt Count 253
Sodium 138
Potassium 3.9
Chloride 102
Carbon Dioxide 29
BUN 30 H
Creatinine 1.7 H
Glucose 83
Calcium 9.5
Vital Signs:
Vital Signs
Temp Pulse Resp BP Pulse Ox
97.5 F 76 16 115/64 96
04/22/24 07:06 04/22/24 11:56 04/22/24 11:56 04/22/24 08:34 04/22/24 11:56
I&O
04/21/24 04/22/24 04/23/24
06:59 06:59 06:59
Intake Total 720 / 720 600 / 600
Output Total 400 / 400
Balance 320 / 320 600 / 600
--- NOTE | 2024-04-22 12:48 | CM ---
Patient seen, provided patient with list of additional SNF from Medicare.gov. CM will continue to follow for discharge planning needs.
Plan; SNF pending accepting facility, patient prefers [facility], message left to [facility] to confirm Medicare days left.
[2024-04-22 15:35] VITALS: BP 123/69
--- NOTE | 2024-04-22 16:03 | PTCARENOTE ---
Pt AAO x3, MARTINEZ; OOB to chair/ambulates to BR with assist x1/walker; reshma well. Pt OOB in chair for most of shift. Pt anxious at times. VSS. On nc 3 lpm- pulse ox 94%, pt with (+) tachypnea/MENENDEZ with any activity. Abd obese, soft, reshma PO well.
Voids in BR without difficulty. Resting comfortably at present. Will continue to monitor.
[2024-04-22 23:43] VITALS: BP 102/58
[2024-04-23] MEDS: FLEXERIL 5 MG PO (04:23)
[2024-04-23 06:00] VITALS: BMI 37.0
[2024-04-23] MEDS: ROXICODONE 5 MG PO ×2 (06:14→22:06)
[2024-04-23 06:34] LABS: % Basophils 0.4 % (0-2); % Immature Granulocytes 1.8 % (0-0.5); % Lymphocytes 20.3 % (20.5-51.1); % Monocytes 5.5 % (1.7-9.3); Absolute Basophils 0.1 10^3/uL (0-0.2); Absolute Eosinophils 0.4 10^3/uL (0-0.7); Absolute Immature Granulocytes 0.3 10^3/uL (0-0.05); Absolute Lymphocytes 2.9 10^3/uL (1.2-3.4); Absolute Monocytes 0.8 10^3/uL (0.1-0.6); Absolute Neutrophils 9.9 10^3/uL (1.4-6.5); Hematocrit 33.6 % (37.0-47.0); Hemoglobin 10.7 g/dL (12.0-16.0); Mean Corp Hgb Conc. 31.8 g/dL (33.0-37.0); Mean Corpuscular Hgb 30.1 pg (27.0-31.0); Mean Corpuscular Volume 94.4 fL (81.0-99.0); Mean Platelet Volume 9.8 fL (7.4-10.4); Nucleated Red Blood Cells % 0 %; Platelet Count 265 10^3/uL (130-400); Red Blood Cell Count 3.56 10^6/uL (4.20-5.40); Red Cell Dist. Width 14.3 % (11.5-14.5); White Blood Cell Count 14.3 10^3/uL (4.8-10.8)
[2024-04-23 06:55] LABS: Blood Urea Nitrogen 38 mg/dl (7-17); Calcium 9.1 mg/dl (8.4-10.2); Carbon Dioxide 31 mmol/L (22-30); Chloride 102 mmol/L (98-107); Estimated Creatinine Clearance 38 ml/min; Glucose 97 mg/dl (70-99); Potassium 3.6 mmol/L (3.5-5.1); Sodium 141 mmol/L (135-145); eGFR 31.27
[2024-04-23 07:30] VITALS: BP 116/68
[2024-04-23] MEDS: SYMBICORT 160/4.5 MCG INHALER 2 PUFF INH ×2 (07:37→19:48)
[2024-04-23] MEDS: DUONEB 3 ML INH ×4 (07:37→19:48)
[2024-04-23] MEDS: TYLENOL 1000 MG PO ×3 (10:17→21:29)
[2024-04-23] MEDS: SUDAFED 12 HOUR (EXTENDED RELEASE) 120 MG PO (10:17)
[2024-04-23] MEDS: ZOLOFT 100 MG PO (10:17)
[2024-04-23] MEDS: CLARITIN 5 MG PO (10:18)
[2024-04-23] MEDS: MUCINEX 600 MG PO ×2 (10:18→20:11)
[2024-04-23] MEDS: DELTASONE 10 MG PO (10:19)
[2024-04-23] MEDS: FLUSH (NSS) 1 FLUSH IV (10:19)
[2024-04-23] MEDS: WELLBUTRIN XL (24 hour extended release) 300 MG PO (10:19)
[2024-04-23] MEDS: OMNICEF 300 MG PO ×2 (10:19→20:11)
[2024-04-23] MEDS: HEPARIN 5000 UNITS SC ×2 (10:19→20:11)
[2024-04-23] MEDS: LIDOCAINE 4% PATCH TOPICAL (10:20)
--- NOTE | 2024-04-23 11:24 | W.PN.HOSP.TC ---
Today's Communication/Plan
-
monitor vitals
see plan
Monitor renal function
Continue with antibiotics
Trial of Valium
Pain control
needs SNF
Assessment / Plan
Assessment / Plan
General: Comfortable, Conversant and Morbidly Obese; No Pain, Fever or Chills
HEENT: NormoCephalic, Anicteric, Moist mucous membranes
Respiratory: mild Wheezes (Expiratory bilaterally)
Cardiac: S1/S2, Regular Rhythm and Peripheral Edema (Trace bilateral lower ankles)
GI: Soft, Non Tender, Non Distended, Normal Bowel Sounds
Musculoskeletal: Edema, Left Lower Extremity and Edema, Right Lower Extremity (Trace)
Neuro: AO x 3, No Motor Deficits, Nonfocal/grossly intact
Psych: Calm
Acute on chronic Back Pain secondary to L2 Compression Fracture
-Lumbar fracture on MRI since 01/20/2024
- cont Lidocaine/Flexeril/Tylenol 1000mg TID with oxycodone prn for breakthrough pain
-PT/OT rec SNF
pain appears to be improving
trial of valium
# Acute on chronic HFpEF
#Acute on chronic Chronic respiratory failure on chronic 2 L nasal cannula baseline
88% on 2 liters NC on admission
-on po Lasix 40 mg daily
-Given bump in creatinine, IV lasix stopped and now on PO; hold lasix again 04/22
-Continue fluid restrict diet 48 ounce low-salt
- check 2D echo EF 55 to 60%, mild aortic stenosis
CXR: Mild cardiomegaly
2D echo 08/18/2023: EF 50-55%, mild AR
#[place] on CKD3b
Suspect secondary to diuresis
now slowly improving, 1.7 today
hold lasix
Monitor with diuresis
Suspect UTI
Urine culture with pansensitive E. coli
Switched antibiotic to cefdinir to complete course; last day 04/24
bladder scan
#COPD, not acute exacerbation/chronic 2 L nasal cannula dependent
#Former smoker quit 3 months ago 58 years 2 pack a day
-cont Pulmicort/Duoneb QID and PRN
#Obstructive Sleep Apnea
intolerant of CPAP in the past
-Did drop to 87% on 2 L nasal cannula while sleeping
-Has upcoming sleep study appointment for reevaluation
#Constipation hx
- history of refusing bowel regimen
#Leukocytosis hx steroid induced
on prednisone
#Non-Ischemic Myocardial Injury in setting of heart failure march 2024
#Anxiety/Depression
-Continue Zoloft, Wellbutrin
#Insomnia
- cont melatonin
#Morbid Obesity due to excess calories
- Affects all aspects of care, encourage weight loss
#DVT prophylaxis-Heparin
DNR per patient
Anticipated Discharge: Within 24 hours
Subjective/Interval History
-
Date of Service: April 23, 2024
has some pain
Objective Data
-
Labs:
Laboratory Results
04/23/24
04:37
WBC 14.3 H
Hgb 10.7 L
Hct 33.6 L
Plt Count 265
Sodium 141
Potassium 3.6
Chloride 102
Carbon Dioxide 31 H
BUN 38 H
Creatinine 1.7 H
Glucose 97
Calcium 9.1
Vital Signs:
Vital Signs
Temp Pulse Resp BP Pulse Ox
97.5 F 79 16 116/68 95
04/23/24 07:30 04/23/24 07:35 04/23/24 07:35 04/23/24 07:30 04/23/24 07:35
I&O
04/22/24 04/23/24 04/24/24
06:59 06:59 06:59
Intake Total 600 / 600 1380 / 1380
Balance 600 / 600 1380 / 1380
[2024-04-23] MEDS: VALIUM 2 MG PO (11:52)
[2024-04-23 14:32] VITALS: PULSE 95; O2SAT 93
[2024-04-23 15:25] VITALS: BP 124/73
[2024-04-23 23:45] VITALS: BP 116/61
[2024-04-24 06:00] VITALS: BMI 37.3
[2024-04-24 06:01] LABS: % Basophils 0.5 % (0-2); % Eosinophils 3.1 % (0-6); % Immature Granulocytes 2.2 % (0-0.5); % Lymphocytes 20.7 % (20.5-51.1); % Monocytes 4.9 % (1.7-9.3); % Neutrophils 68.6 % (42.2-75.2); Absolute Basophils 0.1 10^3/uL (0-0.2); Absolute Eosinophils 0.4 10^3/uL (0-0.7); Absolute Immature Granulocytes 0.3 10^3/uL (0-0.05); Absolute Lymphocytes 2.7 10^3/uL (1.2-3.4); Absolute Monocytes 0.6 10^3/uL (0.1-0.6); Absolute Neutrophils 8.9 10^3/uL (1.4-6.5); Hematocrit 34.2 % (37.0-47.0); Hemoglobin 10.9 g/dL (12.0-16.0); Mean Corp Hgb Conc. 31.9 g/dL (33.0-37.0); Mean Corpuscular Hgb 30.1 pg (27.0-31.0); Mean Corpuscular Volume 94.5 fL (81.0-99.0); Mean Platelet Volume 9.5 fL (7.4-10.4); Nucleated Red Blood Cells % 0 %; Platelet Count 277 10^3/uL (130-400); Red Blood Cell Count 3.62 10^6/uL (4.20-5.40); Red Cell Dist. Width 14.4 % (11.5-14.5)
[2024-04-24 06:21] LABS: Blood Urea Nitrogen 33 mg/dl (7-17); Calcium 9.6 mg/dl (8.4-10.2); Carbon Dioxide 29 mmol/L (22-30); Chloride 105 mmol/L (98-107); Estimated Creatinine Clearance 40 ml/min; Glucose 93 mg/dl (70-99); Sodium 141 mmol/L (135-145); eGFR 33.63
[2024-04-24 07:25] VITALS: BP 129/60
[2024-04-24] MEDS: DUONEB 3 ML INH ×4 (08:23→20:01)
[2024-04-24] MEDS: SYMBICORT 160/4.5 MCG INHALER 2 PUFF INH ×2 (08:23→20:01)
[2024-04-24] MEDS: SUDAFED 12 HOUR (EXTENDED RELEASE) 120 MG PO (08:35)
[2024-04-24] MEDS: CLARITIN 5 MG PO (08:35)
[2024-04-24] MEDS: MUCINEX 600 MG PO ×2 (08:35→20:37)
[2024-04-24] MEDS: TYLENOL 1000 MG PO ×3 (08:36→21:14)
[2024-04-24] MEDS: ZOLOFT 100 MG PO (08:36)
[2024-04-24] MEDS: WELLBUTRIN XL (24 hour extended release) 300 MG PO (08:37)
[2024-04-24] MEDS: DELTASONE 10 MG PO (08:37)
[2024-04-24] MEDS: HEPARIN 5000 UNITS SC ×2 (08:37→20:37)
[2024-04-24] MEDS: FLUSH (NSS) 1 FLUSH IV (08:37)
[2024-04-24] MEDS: LIDOCAINE 4% PATCH TOPICAL (08:38)
[2024-04-24 09:56] VITALS: BP 123/56; PULSE 80; O2SAT 95
--- NOTE | 2024-04-24 10:24 | W.PN.HOSP.TC ---
Addendum entered and electronically signed by Juan Francisco Iverson MD 04/24/24 14:17:
Would keep patient on 10mg prednisone for now
Original Note:
Today's Communication/Plan
-
Monitor vital signs and see plan
Start Valium
PT/OT
Monitor renal function
Lasix to restart tomorrow
Discharge planning, case management aware
Assessment / Plan
Assessment / Plan
General: Comfortable, Conversant and Morbidly Obese; No Pain, Fever or Chills
HEENT: NormoCephalic, Anicteric
Respiratory: mild Wheezes (Expiratory bilaterally)
Cardiac: S1/S2, Regular Rhythm and Peripheral Edema (Trace bilateral lower ankles)
GI: Soft, Non Tender, Non Distended, Normal Bowel Sounds
Musculoskeletal: Edema, Left Lower Extremity and Edema, Right Lower Extremity (Trace)
Neuro: AO x 3, No Motor Deficits, Nonfocal/grossly intact
Psych: Calm
Acute on chronic Back Pain secondary to L2 Compression Fracture
-Lumbar fracture on MRI since 01/20/2024
- cont Lidocaine/Flexeril/Tylenol 1000mg TID with oxycodone prn for breakthrough pain
-PT/OT rec SNF
pain appears to be improving
valium appears to have helped her; make valium BID
# Acute on chronic HFpEF
#Acute on chronic Chronic respiratory failure on chronic 2 L nasal cannula baseline
88% on 2 liters NC on admission
-on po Lasix 40 mg daily
-Given bump in creatinine, lasix was held; restart starting 04/25
-Continue fluid restrict diet 48 ounce low-salt
- check 2D echo EF 55 to 60%, mild aortic stenosis
CXR: Mild cardiomegaly
2D echo 08/18/2023: EF 50-55%, mild AR
#[place] on CKD3b
Suspect secondary to diuresis
now slowly improving, 1.6 today
lasix starting 04/25
Monitor with diuresis
Suspect UTI
Urine culture with pansensitive E. coli
Switched antibiotic to cefdinir to complete course; last day 04/24
bladder scan
#COPD, not acute exacerbation/chronic 2 L nasal cannula dependent
#Former smoker quit 3 months ago 58 years 2 pack a day
-cont Pulmicort/Duoneb QID and PRN
#Obstructive Sleep Apnea
intolerant of CPAP in the past
-Did drop to 87% on 2 L nasal cannula while sleeping
-Has upcoming sleep study appointment for reevaluation
#Constipation hx
- history of refusing bowel regimen
#Leukocytosis hx steroid induced
on prednisone
#Non-Ischemic Myocardial Injury in setting of heart failure march 2024
#Anxiety/Depression
-Continue Zoloft, Wellbutrin
#Insomnia
- cont melatonin
#Morbid Obesity due to excess calories
- Affects all aspects of care, encourage weight loss
#DVT prophylaxis-Heparin
DNR per patient
PT/OT rec SNF
Anticipated Discharge: Within 24 hours
Subjective/Interval History
-
Date of Service: April 24, 2024
denies nausea
Objective Data
-
Labs:
Laboratory Results
04/24/24
05:16
WBC 13.0 H
Hgb 10.9 L
Hct 34.2 L
Plt Count 277
Sodium 141
Potassium 4.0
Chloride 105
Carbon Dioxide 29
BUN 33 H
Creatinine 1.6 H
Glucose 93
Calcium 9.6
Vital Signs:
Vital Signs
Temp Pulse Resp BP Pulse Ox
97.7 F 81 18 129/60 94
04/24/24 07:25 04/24/24 08:24 04/24/24 08:24 04/24/24 07:25 04/24/24 08:34
I&O
04/23/24 04/24/24 04/25/24
06:59 06:59 06:59
Intake Total 1380 / 1380 720 / 720
Balance 1380 / 1380 720 / 720
[2024-04-24] MEDS: VALIUM 2 MG PO ×2 (11:17→20:37)
[2024-04-24] MEDS: ROXICODONE 5 MG PO (14:00)
--- NOTE | 2024-04-24 14:36 | CM ---
Flory has 49 Medicare days left for the benefit period and can return to [facility] for rehabilitation.
I spoke with Flory and she advised that she will go to her daughter's home after rehab, and will resume home care services at that time.
Awaiting call from [facility] regarding ability to accept today.
Report: [phone]
[2024-04-24 15:20] VITALS: BP 129/66
--- NOTE | 2024-04-24 16:03 | PTCARENOTE ---
Pt AAO x3, MARTINEZ; OOB in chair for most of shift. ambulatory to BR with assist x1/walker, reshma well. Pt c/o lower back pain; little effect so far from prn Oxycodone; refuses offer of additional pain meds at present. VSS. On nc 3 lpm- pulse ox 97%,
pt with (+) MENENDEZ/tachypnea with any exertion. Abd obese, soft, reshma PO well. Voids in BR;has (+) stress incontinence. Multiple foam dsgs D/I to skin tears on BUE. Resting in bed at present. Will continue to monitor.
[2024-04-24] MEDS: FLEXERIL 5 MG PO (17:32)
[2024-04-24 23:36] VITALS: BP 120/44
[2024-04-25] MEDS: ROXICODONE 5 MG PO (04:30)
[2024-04-25 05:36] LABS: % Basophils 0.7 % (0-2); % Eosinophils 6.3 % (0-6); % Immature Granulocytes 3.1 % (0-0.5); % Lymphocytes 23.2 % (20.5-51.1); % Neutrophils 60.7 % (42.2-75.2); Absolute Basophils 0.1 10^3/uL (0-0.2); Absolute Eosinophils 0.7 10^3/uL (0-0.7); Absolute Immature Granulocytes 0.4 10^3/uL (0-0.05); Absolute Lymphocytes 2.7 10^3/uL (1.2-3.4); Absolute Monocytes 0.7 10^3/uL (0.1-0.6); Absolute Neutrophils 6.9 10^3/uL (1.4-6.5); Hematocrit 33.5 % (37.0-47.0); Hemoglobin 10.3 g/dL (12.0-16.0); Mean Corp Hgb Conc. 30.7 g/dL (33.0-37.0); Mean Corpuscular Hgb 29.9 pg (27.0-31.0); Mean Corpuscular Volume 97.1 fL (81.0-99.0); Mean Platelet Volume 9.3 fL (7.4-10.4); Nucleated Red Blood Cells % 0 %; Platelet Count 256 10^3/uL (130-400); Red Blood Cell Count 3.45 10^6/uL (4.20-5.40); Red Cell Dist. Width 14.5 % (11.5-14.5); White Blood Cell Count 11.4 10^3/uL (4.8-10.8)
[2024-04-25 05:57] LABS: Blood Urea Nitrogen 31 mg/dl (7-17); Calcium 9.2 mg/dl (8.4-10.2); Carbon Dioxide 27 mmol/L (22-30); Chloride 106 mmol/L (98-107); Estimated Creatinine Clearance 46 ml/min; Glucose 94 mg/dl (70-99); Potassium 4.2 mmol/L (3.5-5.1); Sodium 139 mmol/L (135-145); eGFR 39.48
[2024-04-25 06:00] VITALS: BMI 37.6
[2024-04-25] MEDS: SYMBICORT 160/4.5 MCG INHALER 2 PUFF INH (07:39)
[2024-04-25] MEDS: DUONEB 3 ML INH ×3 (07:40→15:48)
[2024-04-25 07:55] VITALS: BP 129/60
[2024-04-25] MEDS: TYLENOL 1000 MG PO ×2 (09:39→15:33)
[2024-04-25] MEDS: SUDAFED 12 HOUR (EXTENDED RELEASE) 120 MG PO (09:39)
[2024-04-25] MEDS: ZOLOFT 100 MG PO (09:39)
[2024-04-25] MEDS: MUCINEX 600 MG PO (09:39)
[2024-04-25] MEDS: CLARITIN 5 MG PO (09:39)
[2024-04-25] MEDS: DELTASONE 10 MG PO (09:40)
[2024-04-25] MEDS: HEPARIN 5000 UNITS SC (09:40)
[2024-04-25] MEDS: VALIUM 2 MG PO (09:40)
[2024-04-25] MEDS: WELLBUTRIN XL (24 hour extended release) 300 MG PO (09:40)
[2024-04-25] MEDS: LIDOCAINE 4% PATCH TOPICAL (09:41)
[2024-04-25] MEDS: LASIX 40 MG PO (09:42)
[2024-04-25] MEDS: SENOKOT-S 1 TABLET PO (09:52)
--- NOTE | 2024-04-25 10:43 | W.PN.HOSP.TC ---
Today's Communication/Plan
-
d/c
Assessment / Plan
Assessment / Plan
Gen: NAD, AAOx3.
Eyes: EOMI, PERRLA, no scleral icterus.
Neck: supple.
CV: RRR, +S1/S2, no m/r/g.
Resp: CTAB, no rales, wheezes, or rhonchi.
Abd: +BS, soft, NT, ND
Skin: No rashes.
Neuro: CN 2-12 intact, non-focal.
Psych: Normal mood and affect.
CXR: No acute disease of the chest. Mild cardiomegaly. New.
Echo: EF 55-60%. Normal regional wall motion.
Normal right ventricular size and function.
Mild to moderate mitral regurgitation.
Mild aortic stenosis; peak/mean gradients 16/8 mmHg, calculated ZACHARIAH 1.5 cm2.
Moderate aortic regurgitation (PHT = 347 ms).
Compared to previous echo on 08/18/2023, progressive aortic regurgitation is
noted (previously mild). Progressive mitral regurgitation is also noted
(previously none).
Acute on chronic Back Pain secondary to L2 Compression Fracture
-Lumbar fracture on MRI since 01/20/2024
-cont Lidocaine/Flexeril/Tylenol/Oxycodone PRN/Valium
-cont Prednisone
-PT/OT rec SNF
Acute on chronic hypoxemic respiratory failure due to acute on chronic HFpEF:
-was on IV lasix which was stopped due to [place], now on PO Lasix
-echo above
-cardiology saw in c/s
-cont FR, daily wts, I/Os
Other problems:
[place] on CKD3b: likely due to diuresis/CRS. Cr now 1.4 (baseline Cr 1.5)
UTI: UCx with pansensitive E. coli, completed abx with Cefdinir on 04/24/24
Chronic hypoxemic respiratory failure due to COPD, not acute exacerbation: on 2L NC at baseline. Quite 3 months ago after 116 pack years. Continue Spiriva/Symbicort
Obstructive Sleep Apnea: intolerant of CPAP in the past
h/o Constipation: h/o refusing bowel regimen
Anxiety/Depression: Continue Zoloft/Wellbutrin
Insomnia: cont melatonin
Obesity due to excess calories
DNR/Heparin
Total time spent on d/c = 40 min. This included today's physical exam, progress note, review of laboratory and diagnostic data, preparation of discharge documents and prescriptions, and discussions about the pt's hospital course and discharge plan
with the patient and other medical technicians involved in the patient's care.
Anticipated Discharge: Today
Subjective/Interval History
-
Date of Service: April 25, 2024
No new complaints. Pt is asking to be discharged.
Objective Data
-
Labs:
Laboratory Results
04/25/24
05:23
WBC 11.4 H
Hgb 10.3 L
Hct 33.5 L
Plt Count 256
Sodium 139
Potassium 4.2
Chloride 106
Carbon Dioxide 27
BUN 31 H
Creatinine 1.4 H
Glucose 94
Calcium 9.2
Vital Signs:
Vital Signs
Temp Pulse Resp BP Pulse Ox
97.7 F 82 20 129/60 93
04/25/24 07:55 04/25/24 07:55 04/25/24 07:55 04/25/24 07:55 04/25/24 07:55
I&O
04/24/24 04/25/24 04/26/24
06:59 06:59 06:59
Intake Total 720 / 720 1155 / 1155
Output Total 300 / 300
Balance 720 / 720 855 / 855
--- NOTE | 2024-04-25 12:58 | W.DCSUMMARY ---
Discharge Summary
Discharge Data
Date of Admission: 04/17/24
Date of Discharge: 04/25/24
-
Pending Results: No
Hospital Course
Primary diagnoses:
Acute on chronic hypoxemic respiratory failure due to acute on chronic heart failure with preserved ejection fraction
Acute on chronic Back Pain secondary to L2 Compression Fracture
Urinary tract infection
Acute kidney injury on chronic disease stage IIIb
Secondary diagnoses:
Chronic hypoxemic respiratory failure due to chronic obstructive pulmonary disease
Obstructive Sleep Apnea
Constipation
Anxiety
Depression
Insomnia
Obesity due to excess calories
Consultants:
Cardiology
Imaging:
CXR: No acute disease of the chest. Mild cardiomegaly. New.
Echo: EF 55-60%. Normal regional wall motion.
Normal right ventricular size and function.
Mild to moderate mitral regurgitation.
Mild aortic stenosis; peak/mean gradients 16/8 mmHg, calculated ZACHARIAH 1.5 cm2.
Moderate aortic regurgitation (PHT = 347 ms).
Compared to previous echo on 08/18/2023, progressive aortic regurgitation is
noted (previously mild). Progressive mitral regurgitation is also noted
(previously none).
74-year-old female who presented with a chief complaint of low back pain resulting in difficulty ambulating as outlined in the H&P done on admission. Hospital course by problem list:
Acute on chronic hypoxemic respiratory failure due to acute on chronic HFpEF: The patient was diuresed with IV Lasix which was stopped due to acute kidney injury. She was then placed on oral Lasix. Echocardiogram above. The patient was seen in
consultation by cardiology.
Acute on chronic Back Pain secondary to L2 Compression Fracture: The patient had a lumbar fracture on MRI since 01/20/2024. She was treated with Lidocaine/Flexeril/Tylenol/Oxycodone PRN/Valium. She was on prednisone prior to admission and this was
continued although the dose was decreased. On discharge a prescription for Valium was given. Narcotics are not recommended at this time.
[place] on CKD3b: This was likely due to diuresis/CRS. Cr improved to 1.4 (baseline Cr 1.5).
UTI: The patient's UCx grew pansensitive E. coli and she completed a course of antibiotics with Cefdinir on 04/24/24.
Risk of readmission within 30 days is likely 100%.
Discharge Plan
-
Patient Disposition: Senior Living/SNF
Discharge Diagnosis/Procedures: Acute on chronic Back Pain secondary to L2 Compression Fracture
Acute on chronic heart failure preserved ejection fraction
Acute kidney injury on chronic kidney disease stage 3b
Urinary tract infection
Ambulatory dysfunction
Obesity due to excess calories
Diet: As tolerated
Activity: As tolerated
Driving Restrictions: As prior to admission
Bathing Restrictions: None
Referrals:
Noman Siegel MD [Active] -
Ant Diaz DO [Family Provider] - in less than 1 week
Prescriptions:
New
polyethylene glycol 3350 [HealthyLax] 17 gram Powder In Packet
17 g PO DAILYPRN PRN (Reason: constipation) Qty: 0 0RF
acetaminophen [Tylenol Extra Strength] 500 mg Tablet
1,000 mg PO TID Qty: 0 0RF
prednisone 10 mg Tablet
10 mg PO DAILY Qty: 0 0RF
sennosides-docusate sodium [Stool Softener-Stimulant Laxat] 8.6-50 mg Tablet
1 tab PO BIDPRN PRN (Reason: constipation) Qty: 0 0RF
diazepam 2 mg Tablet
2 mg PO BID Qty: 4 0RF
Continued
Claritin-D 12 Hour 5-120 mg Tablet Extended Release 12 Hr
1 tab PO DAILY
albuterol sulfate 90 mcg/actuation HFA aerosol inhaler
2 puff INHALATION R Q4HPRN PRN (Reason: sob/wheezing)
sertraline 25 mg tablet
100 mg PO DAILY
bupropion HCl 300 mg tablet extended release 24 hr
300 mg PO DAILY
Breztri Aerosphere 160-9-4.8 mcg/actuation HFA aerosol inhaler
2 inh INHALATION R BID
furosemide 40 mg tablet
40 mg PO DAILY
lidocaine 4 % adhesive patch,medicated
1 patch topical DAILY
melatonin 5 mg Tablet
10 mg PO HS Qty: 30 0RF
guaifenesin 600 mg Tablet Extended Release 12hr
600 mg PO Q12 Qty: 30 0RF
albuterol sulfate 2.5 mg /3 mL (0.083 %) Solution For Nebulization
2.5 mg INHALATION R QIDPRN PRN (Reason: sob/wheezing)
cyclobenzaprine 10 mg tablet
5 mg PO TID PRN (Reason: muscle spasm)
Discontinued
oxycodone 5 mg Tablet
5 mg PO Q8HPRN PRN (Reason: moderate pain) Qty: 8 0RF
prednisone 20 mg Tablet
20 mg PO DAILY
Discharge Orders:
Discharge Patient (As Directed); Ordered 04/25/24
Ordered By: Juan Beasley
Discharge Date and Time
Print Language: TUVALUAN
--- NOTE | 2024-04-25 14:52 | CM ---
Flory will be discharged to [facility] [place] today. Her daughter will be transporting her after 3PM today.
[facility] [place] aware of transfer plans.
Report: [phone]
[2024-04-25] MEDS: DUONEB INH (15:11)
--- NOTE | 2024-04-25 15:13 | W.HF.CON ---
Heart Failure
- LV Function
Left ventricular function study result: LV Ejection fraction >40%
Ejection Fraction Percentage: 55-60
- ARNI
Patient already on ARNI: No
Heart Failure ARNI Not Indicated: LV Ejection Fraction >/= 40%
- ACEI/ARB
Patient already on ACEI/ARB: No
Heart Failure ACEI/ARB Not Indicated: LV Ejection Fraction > 40%
- Beta Kerwin
Patient already on Evidence Based Beta Kerwin: No
Heart Failure Evidence Based Beta Kerwin Not Indicated: LV Ejection Fraction > 40%
- Mineralocorticord Receptor Antagonist
Patient already on MRA: No
Heart Failure MRA Not Indicated: LV Ejection Fraction > 40%
- SGLT-2 Inhibitor
Patient already on SGLT-2 Inhibitor: No
Heart Failure SGLT-2 Inhibitor Not Indicated: LV Ejection Fraction >40%
- NYHA CHF Classification
NYHA CHF Classification Level: Class III - Symptoms w/ min exertion, interferes w/ nml daily activity (COPD)
- ACC/AHA Stage
ACC/AHA Stage: Stage C: Symptomatic Heart Failure
[2024-04-25] MEDS: FLEXERIL 5 MG PO (15:32)
[2024-04-25 15:42] VITALS: BP 120/68
== END 2024-04-25 16:11 | DRG 291 ==
LOC: 4 EAST ACU 22:21
PROVIDERS: Clinical Nurse Specialist Family Health; Internal Medicine; Student in an Organized Health Care Education/Training Program; ADMITTING PHYSICIAN Hospitalist; ATTENDING PHYSICIAN Internal Medicine; CONSULT PHYSICIAN Internal Medicine; EMERGENCY PHYSICIAN Emergency Medicine; FAMILY PHYSICIAN Family Medicine
PROC: B24BZZZ Ultrasonography of Heart with Aorta (ICD-10-PCS; 2024-04-18)
DX: I50.33 Acute on chronic diastolic (congestive) heart failure (principal); J96.21 Acute and chronic respiratory failure with hypoxia; M48.56XA Collapsed vertebra, not elsewhere classified, lumbar region, initial encounter for fracture; N17.8 Other acute kidney failure; N39.0 Urinary tract infection, site not specified; I5A Non-ischemic myocardial injury (non-traumatic); J44.9 Chronic obstructive pulmonary disease, unspecified; D72.828 Other elevated white blood cell count; T38.0X5A Adverse effect of glucocorticoids and synthetic analogues, initial encounter; F41.9 Anxiety disorder, unspecified; G47.33 Obstructive sleep apnea (adult) (pediatric); F32.A Depression, unspecified; G47.00 Insomnia, unspecified; N18.32 Chronic kidney disease, stage 3b; I08.0 Rheumatic disorders of both mitral and aortic valves; G89.29 Other chronic pain; E66.01 Morbid (severe) obesity due to excess calories; Z68.37 Body mass index [BMI] 37.0-37.9, adult; Z99.81 Dependence on supplemental oxygen; Z88.0 Allergy status to penicillin; Z79.52 Long term (current) use of systemic steroids; Z87.891 Personal history of nicotine dependence; B96.20 Unspecified Escherichia coli [E. coli] as the cause of diseases classified elsewhere; Z66 Do not resuscitate; Z91.119 Patient's noncompliance with dietary regimen due to unspecified reason
CPT/HCPCS: 71046; 80048; 80053; 81003; 81015; 83880; 85025; 87086; 87088; 87186; 93005; 93306; 94640; 97116; 97530; 97535; Q9950

== ENCOUNTER → 2024-05-01 09:59 | Outpatient (REF) | payer OTHER, SELFPAY ==
[2024-05-01 11:36] LABS: Blood Urea Nitrogen 36 mg/dl (7-17); Calcium 9.1 mg/dl (8.4-10.2); Carbon Dioxide 31 mmol/L (22-30); Chloride 100 mmol/L (98-107); Glucose 93 mg/dl (70-99); Potassium 4.4 mmol/L (3.5-5.1); Sodium 139 mmol/L (135-145); eGFR 31.27
[2024-05-01 11:37] LABS: NT-proBNP 340 pg/ml
== END ==
LOC: OLABP 09:59
PROVIDERS: ATTENDING PHYSICIAN Student in an Organized Health Care Education/Training Program
DX: S32.020D Wedge compression fracture of second lumbar vertebra, subsequent encounter for fracture with routine healing (principal); N17.9 Acute kidney failure, unspecified; J44.1 Chronic obstructive pulmonary disease with (acute) exacerbation; I50.31 Acute diastolic (congestive) heart failure; N18.30 Chronic kidney disease, stage 3 unspecified
CPT/HCPCS: 36415; 80048; 83880

== ENCOUNTER 2024-06-22 17:22 | Inpatient (IN) | payer MEDICARE, SELFPAY ==
[2024-06-22 11:26] VITALS: BP 155/77
[2024-06-22 11:37] VITALS: BP 146/71
[2024-06-22 11:57] VITALS: BMI 34.9
[2024-06-22 12:07] LABS: % Basophils 0.4 % (0-2); % Eosinophils 3.3 % (0-6); % Immature Granulocytes 0.9 % (0-0.5); % Lymphocytes 12.5 % (20.5-51.1); % Neutrophils 77.9 % (42.2-75.2); Absolute Basophils 0.1 10^3/uL (0-0.2); Absolute Eosinophils 0.4 10^3/uL (0-0.7); Absolute Immature Granulocytes 0.1 10^3/uL (0-0.05); Absolute Lymphocytes 1.6 10^3/uL (1.2-3.4); Absolute Monocytes 0.7 10^3/uL (0.1-0.6); Absolute Neutrophils 10.1 10^3/uL (1.4-6.5); Hematocrit 41.3 % (37.0-47.0); Hemoglobin 13.4 g/dL (12.0-16.0); Mean Corp Hgb Conc. 32.4 g/dL (33.0-37.0); Mean Corpuscular Hgb 30.5 pg (27.0-31.0); Mean Corpuscular Volume 93.9 fL (81.0-99.0); Nucleated Red Blood Cells % 0 %; Platelet Count 366 10^3/uL (130-400); White Blood Cell Count 12.9 10^3/uL (4.8-10.8)
[2024-06-22 12:12] LABS: ALT (SGPT) 17 U/L (0-35); AST (SGOT) 22 U/L (14-36); Albumin 3.8 g/dl (3.5-5.0); Alkaline Phosphatase 169 U/L (38-126); Blood Urea Nitrogen 14 mg/dl (7-17); Calcium 9.5 mg/dl (8.4-10.2); Carbon Dioxide 30 mmol/L (22-30); Chloride 103 mmol/L (98-107); Estimated Creatinine Clearance 42 ml/min; Glucose 93 mg/dl (70-99); Potassium 4.2 mmol/L (3.5-5.1); Sodium 138 mmol/L (135-145); Total Bilirubin 0.8 mg/dl (0.2-1.3); Total Protein 6.9 g/dl (6.3-8.2); eGFR 36.34
[2024-06-22 13:00] VITALS: BP 142/72
[2024-06-22 14:11] VITALS: BP 147/72
[2024-06-22] MEDS: DUONEB 3 ML INH (14:26)
[2024-06-22] MEDS: DILAUDID 0.5 MG IV ×3 (14:26→23:59)
--- NOTE | 2024-06-22 15:02 | ED.GENMED ---
History of Present Illness
General
Chief Complaint: Fall
Source: patient
Exam Limitations: none
Time Seen by Provider: 06/22/24 13:45
Nursing documentation reviewed up to this point in time: agreed with
History of Present Illness
History of Present Illness:
74 y/o F with h/o CHF, COPD on 3L chronically
chronic pain
says she fell 6 days ago when she was walking with her walker, fell fowrad onto her chest
she was able to get up and was sore
she did not lose consciousness
she has svetlana taking some pain meds here and there but was very mobile
until this morning she rolled off her bed onto the floor onto right head, right shulder and right ribs and nwo has severe pain with breathing an dmovement
she is not anticoagulated
no fever, chills
she is due for neb and is wheezing
chrnoically wheezes
aso h/o CHF and has been having more edema in the abdomen
Past History
Past History
ED Past Medical History: CHF, COPD (2-3 liters NC), Psychiatric (Anxiety, Depression, ) and Other (Spinal stenosis, morbid obesity, Bilateral kidney stones, Ulcers, Sleep apnea, )
ED Past Surgical History: Cholecystectomy, Orthopedic (Left shoulder reconstruction. ), Urological (Kidney surgery) and Other (Fasciotomy for fasciitis with wound VAC of lower back and thigh)
Social History
Tobacco: Former smoker
Alcohol: None
Drug: None
Personal:
Living: with family
Employment: Retired
Family History
Family History: Other (Noncontributory)
Review of Systems
Review of Systems
Allergies reviewed?: Yes
All Other Systems: Not applicable
Phy Exam
Physical Exam
Physical Exam:
GENERAL: Alert , uncomfortable, sob
HEAD: right sided temporal contusion, bruising, no swellin
NECK: no midline tenderness, active ROM intact, no paraspinal muscle tenderness;
EYE: pupils equal and reactive, EOMs intact.
ENT: o/p clr, mmm. no hemotympanum
CARDIAC: Regular rate and rhythm, no edema
LUNGS: splinting, wheeizng insp/exp,
chest wall: tender Right lower ribs and back
ABDOMEN: Soft, obese, nontender, no flrank tendenress without focal tenderness, no r/g, no cvat
NEUROLOGICAL: Alert and oriented, no focal neuro deficits, CN intact, 5/5 strength, sensation intact
SKIN: Warm and dry, no bruising on chest wall
MUSCULOSKELETAL: No edema, well perfused.
back: pain in back with movement
PSYCH: Normal and appropriate interaction.
Course
Orders/Labs/Results
Orders:
Orders
06/22/24 11:32
EKG [Electrocardiogram (*1)] Urgent
Reason for Study: Shortness of Breath
06/22/24 11:34
EKG- Treatment ONCE
CR Ribs-dionte 4 Vw W/pa Chest Urgent
Reason For Exam: fall, pain
06/22/24 11:39
Complete Blood Count/With Diff Urgent
Comprehensive Metabolic Panel Urgent
NT-proBNP Urgent
Troponin I Urgent
06/22/24 14:14
CT Chest W/o Iv Contrast Urgent
Comment:
Reason For Exam: fall, severe b/l rib pain, sob, hypoxia
HYDROmorphone [Dilaudid] 0.5 mg IV NOW STA
Ipratropium/Albuterol Sulfate [Duoneb] 3 ml INH R NOW ONE
06/22/24 14:16
CT Cervical Spine W/o Iv Contr Urgent
Comment:
Reason For Exam: fall ut of bed
CT Head W/o Iv Contrast Urgent
Comment:
Reason For Exam: fall hit head
CR Shoulder, Trauma - Right Urgent
Comment:
Reason For Exam: fall right shoulder pain
06/22/24 Dinner
Cholesterol Lowering
At Your Request: Full Participation
Does patient need a safe tray?: No
Cholesterol Lowering: Sodium, 2 Gram
06/22/24 15:35
Furosemide [Lasix] 40 mg IV NOW STA
06/22/24 15:47
HYDROmorphone [Dilaudid] 0.5 mg IV NOW STA
06/22/24 16:48
Admit/Transfer Patient As Directed
Co-Sign Provider:
Level of Care: Inpatient admission
Assign to:: Telemetry
Physician / Group: philip
Diagnosis: chf exacerbation, compression fractures
Reason for Telemetry: Acute Heart Failure
Date to Stop Telemetry: 06/25/24
Time to Stop Telemetry: 11:00
Reason for Hospitalization: chf exacerbation
Expected length of stay greater than two midnights?: Yes
ELOS- Estimated Length of Stay in days: 2
I certify the patient meets the requirements for IP care: Yes
PRN Pain Medication Management As Directed
May give lesser potent ordered pain med per pt: Yes
preference::
Protocol:: Medication orders for pain may be administered in a
manner that supports deferring to patient preference
when the pt is:
- Requesting an ordered lesser potent pain medication.
Least to most potent pain medications are defined
as: acetaminophen < NSAID < tramadol < opioids
(morphine, oxycodone, hydromorphone).
- Requesting a lesser dose of the same medication IF
ORDERED.
- Requesting a less intrusive route of administration
if both routes are prescribed by the provider (PO <
IV).
06/22/24 16:49
Code Status As Directed
Resuscitation Status: Full Code
06/22/24 18:17
Cyclobenzaprine HCl [Flexeril] 5 mg PO TIDPRN PRN
HYDROmorphone [Dilaudid] 0.5 mg IV Q4HPRN PRN
Ipratropium/Albuterol Sulfate [Duoneb] 3 ml INH R Q4HPRN PRN
Lidocaine [Lidocaine 4% Patch] 1 patch TOPICAL DAILYPRN PRN
Apply Lidocaine patch(s) to:: mid back
Melatonin 10 mg PO HSPRN PRN
Ondansetron Orally Disint [Zofran Odt (Orally Disintegrating)] 4 mg PO BIDPRN PRN
06/22/24 18:17
Activity As Directed
Activity Level: As Tolerated
Intake/ Output As Directed
Frequency: q12h
Vital Signs As Directed
Frequency: Other
Additional Instructions:: Q12 or per unit guidelines if more frequent.
Weight As Directed
Frequency: Daily
Type of Scale: Standing Scale
Comment: Daily morning weight. If unable to stand, use balanced bed scale.
Weight As Directed
Frequency: Once
Type of Scale: Standing Scale
Comment: Upon Admission. If unable to stand, use balanced bed scale.
Pulse Ox/cont/shift [RESP] Routine
Quantity: 1
Special Instructions: Daily pulse oximetry at rest. If greater than 92% at rest also obtain pulse oximetry
while ambulating as tolerated.
OT Consult [Ot Eval And Treat] Routine
Pt Eval And Treat Routine
Activity Level: As Tolerated
DX Deep Vein Thrombosis Video Routine
06/22/24 20:00
Acetaminophen [Tylenol] 1,000 mg PO BID
Albuterol Nebs [Ventolin Nebules] 2.5 mg INH R QID
Guaifenesin [Mucinex] 600 mg PO Q12
Heparin 5,000 units SC Q12
Prednisone [Deltasone] 10 mg PO BID
hoaacstszc-gvpyjzxn-dwuhqprwuq [Breztri Aerosphere] 2 inh INH R BID
06/23/24 08:00
Bupropion(24Hr)Extended Releas [WELLBUTRIN XL (24 hour extended release)] 300 mg PO DAILY
Sertraline HCl [Zoloft] 100 mg PO DAILY
loratadine-pseudoephedrine [Claritin-D 12 Hour] See Dose Instructions PO DAILY
06/23/24 08:26
Complete Blood Count/With Diff IN AM
Comprehensive Metabolic Panel IN AM
06/25/24 11:00
DC Protocol for Telemetry ONCE
Abnormal Lab Results
06/22/24
11:39
WBC 12.9 H 10^3/uL
(4.8-10.8)
MCHC 32.4 L g/dL
(33.0-37.0)
Abs Immat Gran (auto) 0.1 H 10^3/uL
(0-0.05)
Absolute Neuts (auto) 10.1 H 10^3/uL
(1.4-6.5)
Absolute Monos (auto) 0.7 H 10^3/uL
(0.1-0.6)
Immature Gran % 0.9 H %
(0-0.5)
Neutrophils % 77.9 H %
(42.2-75.2)
Lymphocytes % 12.5 L %
(20.5-51.1)
Creatinine 1.5 H mg/dL
(0.6-1.0)
Alkaline Phosphatase 169 H U/L
(38-126)
06/22/24 11:39
06/22/24 11:39
Vital Signs
Initial and Last Documented VS:
Initial Vital Signs
Temp Pulse Resp BP Pulse Ox
97.8 F 98 26 155/77 88
06/22/24 11:26 06/22/24 11:26 06/22/24 11:26 06/22/24 11:26 06/22/24 11:26
Last Documented Vital Signs
Temp Pulse Resp BP Pulse Ox
98.3 F 80 16 137/82 93
06/25/24 07:00 06/25/24 07:12 06/25/24 07:12 06/25/24 07:00 06/25/24 07:12
MDM/Problems Addressed
Differential Diagnosis Includes:
rib fx, ptx, copd, chf exacevtaion, cmpression fx
MDM/Problems Addressed:
74-year-old female with a history of CHF and COPD presents after 2 falls, one happening 60 days ago forward onto her face and chest wall causing some discomfort in both sides of her ribs but it was manageable until this morning when she rolled out
of bed has had a lot of painful breathing since then. She almost ran out of her oxygen at home but did not. She was little bit more short of breath than usual because of the pain. It is coming from her back and wrapping around her right ribs it
hurts when she takes a deep breath. She is not anticoagulated. She is never had a blood clot. She just lowered her Lasix dose but was having more swelling in her abdomen. On exam she was requiring more oxygen than usual, 5 L from her 3 L
baseline, was wheezy and slightly tachypneic and splinting. She improved after DuoNeb. She has no appreciated crackles on exam, no bruising but was having pain with any movement in the bed. She has no flank or abdominal tenderness or bruising.
She seems to be tender mostly in her ribs to the right side.
Given the recent trauma the most likely cause for her pain could be a fracture of her ribs or pneumothorax. Patient's rib series was negative but due to her body habitus this could be limiting. I independently reviewed the images myself as well.
I doubt the patient has a PE with this history and with her creatinine being elevated with low GFR I opted to CT the chest without contrast to rule out trauma to the ribs or pneumothorax. It shows multiple compression fractures in her thoracic
spine which are new from previous imaging several months ago but age-indeterminate.
She does seem to have some back pain with movement so they could be acute. Patient's BNP is elevated for her to is normal. Will admit for IV Lasix, nebs, pain control, steroids as a mixed picture COPD/CHF exacerbation in the setting of recent
trauma and probably a rib contusion
*Critical Care Note
Total Time (30-74mins, 75-104mins- exclusive of procedures): Not Applicable
ED Attending Note
-
Portions of this chart may have been created with voice recognition software.� Occasional wrong word or��sound alike� substitutions may have occurred due to the inherent limitations of voice recognition software.
Discharge Plan
Departure
Patient Disposition: Admit
Date of Disposition: 06/22/24
Time of Disposition: 15:56
Admit to: Telemetry
Presentation/result/management discussed w/ accepting MD/DO: Hospitalist
Condition: Fair
Covid-19: Not Applicable
Discharge Problem:
CHF (congestive heart failure), Compression fracture of thoracic vertebra, Falls, Dyspnea
Interventions
Interventions:
*Risk Screen - Suicide Last Done: 06/22/24 12:01
*General Assessment Last Done: 06/22/24 12:01
*Neglect/Abuse Screening Last Done: 06/22/24 12:01
*ED COVID-19 Vaccine History Last Done: 06/22/24 12:01
*Nursing Disposition Last Done: 06/22/24 18:14
ED-Musculoskeletal Assessment Last Done: 06/22/24 12:02
ED- Neurological Assessment Last Done: 06/22/24 12:02
ED-Skin Assessment Last Done: 06/22/24 12:02
Discharge Date and Time
Discharge Date/Time: 06/22/24 18:15
[2024-06-22 15:16] LABS: NT-proBNP 2910 pg/ml; Troponin I 0.017 ng/ml
[2024-06-22] MEDS: LASIX 40 MG IV (15:53)
--- NOTE | 2024-06-22 16:53 | HPS.HSE ---
Family Physician
-
Family Physician: NOT KNOW UNKNOWN - PT DOES
Chief Complaint
-
back pain
History of Present Illness
74-year-old female past medical history of chronic HFpEF, CKD 3B, COPD, chronic hypoxemic respiratory failure on 2 L at baseline, former smoker, obstructive sleep apnea, constipation, anxiety/depression, insomnia, obesity, L2 compression fracture,
presenting for fall. She fell 6 days ago when she was walking with her walker and fell forward onto her chest. She also had a fall out of bed a few weeks ago. She was able to get up and was sore. She denies dizziness or losing consciousness.
This morning she rolled off her bed onto the floor onto her right head, right shoulder and pain across her mid back worse with even slight movement.
She had some shortness of breath today. She denies any coughing or wheezing. She denies any lower extremity edema. Her weight has been fluctuating within 5 pounds. She denies any chest pain.
She is a former smoker. She denies alcohol.
Medical History
Past Medical History
Past Medical History: Reports Other (chronic HFpEF, CKD 3B, COPD, chronic hypoxemic respiratory failure on 2 L at baseline, former smoker, obstructive sleep apnea, constipation, anxiety/depression, insomnia, obesity, L2 compression fracture)
Past Surgical History: Reports Other ( Cholecystectomy, Orthopedic (Left shoulder reconstruction. ), Urological (Kidney surgery) and Other (Fasciotomy for fasciitis with wound VAC of lower back and thigh))
Social History
Tobacco: Former Smoker
Alcohol: None
Drug: None
Family History
Family History: Not pertinent
Allergies / Home Medications
Allergies reflects when Allergies were last updated in [employer].
Home Medications with original date entered in [employer]
Allergy/Medication List:
Allergies
Allergy/AdvReac Type Severity Reaction Status Date / Time
ampicillin Allergy Hives Verified 06/22/24 11:26
coconut Allergy Hives Verified 06/22/24 11:26
mustard Allergy Hives Verified 06/22/24 11:26
Home Medications
albuterol sulfate 90 mcg/actuation aerosol inhaler 2 puff inhalation R Q4HPRN PRN sob/wheezing 12/29/22
loratadine 5 mg-pseudoephedrine ER 120 mg tablet,extended release,12hr (Claritin-D 12 Hour) 1 tab PO DAILY Allergies 12/29/22
bupropion HCl 300 mg 24 hr tablet, extended release 300 mg PO DAILY Depression 07/19/23
sertraline 25 mg tablet 100 mg PO DAILY Depression 07/19/23
budesonide 160 mcg-glycopyr 9 mcg-formot 4.8 mcg/actuation HFA inhaler (ReffpediazUmoovephere) 2 inh inhalation R BID Lung/Breathing Issues 01/18/24
furosemide 40 mg tablet 40 mg PO DAILY Fluid Retention/Swelling 02/20/24
lidocaine 4 % topical patch 1 patch topical DAILYPRN PRN back/side pain 02/20/24
guaifenesin 600 mg tablet, extended release 12 hr 600 mg PO Q12 Lung/breathing issues #30 tabs 03/19/24
albuterol sulfate 2.5 mg/3 mL (0.083 %) solution for nebulization 2.5 mg inhalation R QID 04/17/24
cyclobenzaprine 10 mg tablet 5 mg PO TIDPRN PRN muscle spasm 04/17/24
acetaminophen 500 mg tablet (Tylenol Extra Strength) 1,000 mg PO BID 06/22/24
melatonin 5 mg tablet 10 mg PO HSPRN PRN sleep 06/22/24
ondansetron 4 mg disintegrating tablet 4 mg PO BIDPRN PRN nausea/vomiting 06/22/24
prednisone 10 mg tablet 10 mg PO BID 06/22/24
Review of Systems
-
History Source: Patient
A 12 point ROS was completed and negative except as noted: Yes
Constitutional: Reports No Symptoms
EENT: Reports No Symptoms
Respiratory: Reports No Symptoms
Cardiac: Reports No Symptoms
Abdomen/GI: Reports No Symptoms
: Reports No Symptoms
Musculoskeletal: Reports No Symptoms
Skin: Reports No Symptoms
Neurological: Reports No Symptoms
Endocrine: Reports No Symptoms
Hematologic/Lymphatic: Reports No Symptoms
Psych: Reports No Symptoms
Physical Exam
Vital Signs
Vital Signs
Temp Pulse Resp BP Pulse Ox
97.8 F 101 30 147/72 99
06/22/24 11:26 06/22/24 15:53 06/22/24 13:30 06/22/24 15:53 06/22/24 13:30
Physical Exam
General: Well Developed, Well Nourished and No Apparent Distress
HEENT: NormoCephalic, Moist mucous membranes and Atraumatic
Respiratory: Clear
Cardiac: S1/S2 and Regular Rhythm; No Murmur or Rub
GI: Soft, Non Tender, Non Distended and Normal Bowel Sounds; No Organomegaly
Rectal: Deferred by Provider
Musculoskeletal: No Clubbing, No Cyanosis and No Edema
Skin: No Rash
Neuro: Nonfocal/grossly intact
Laboratory Results
-
06/22/24 11:39
06/22/24 11:39
Laboratory Results
Total Bilirubin 0.8 mg/dl (0.2-1.3) 06/22/24 11:39
AST 22 U/L (14-36) 06/22/24 11:39
ALT 17 U/L (0-35) 06/22/24 11:39
Alkaline Phosphatase 169 U/L (38-126) H 06/22/24 11:39
Troponin I 0.017 ng/ml 06/22/24 11:39
Data Reviewed
-
Lab Data: Labs Reviewed by me
Old Records: Reviewed
Impression/Plan
-
IMPRESSION:
PLAN:
# Compression fractures of T8, T10, T11 after fall out of bed
-CT chest shows no rib fractures
-CT chest shows age-indeterminate mild compression fractures of T8, T10 and T11
-Tylenol, as needed Dilaudid as needed
-Lidocaine patch
-PT/OT
#Acute on chronic HFpEF exacerbation
-Patient on 4 to 6 L of oxygen here
-No wheezing on examination
-Cardiac BNP of 2900
-Chest x-ray no cardiopulmonary abnormality
-Check I's and O's, daily weights
-40 IV Lasix given
CKD 3B
-Creatinine at baseline
COPD
-Continue prednisone
-Continue nebulizers every 6 hours as needed
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
-Stable
Chronic hypoxemic respiratory failure on 2 L baseline
Former smoker
Obstructive sleep apnea
-Intolerant of CPAP
Constipation
Anxiety/depression
-Continue sertraline, bupropion
Insomnia
Obesity
Full code
DVT prophylaxis�heparin
Cardiac diet
[2024-06-22 18:28] VITALS: BMI 35.6
[2024-06-22 18:35] VITALS: BP 132/88; BMI 35.6
[2024-06-22] MEDS: TYLENOL 1000 MG PO (20:03)
[2024-06-22] MEDS: HEPARIN 5000 UNITS SC (20:03)
[2024-06-22] MEDS: MUCINEX 600 MG PO (20:03)
[2024-06-22] MEDS: DELTASONE 10 MG PO (20:03)
[2024-06-22] MEDS: VENTOLIN NEBULES 2.5 MG INH (20:25)
[2024-06-22] MEDS: SYMBICORT 160/4.5 MCG INHALER 2 PUFF INH (20:25)
[2024-06-22 23:15] VITALS: BP 118/74
[2024-06-23 03:38] VITALS: BP 122/80
[2024-06-23 05:58] VITALS: BMI 34.3
[2024-06-23 07:19] VITALS: BP 136/74
[2024-06-23] MEDS: SYMBICORT 160/4.5 MCG INHALER 2 PUFF INH ×2 (07:50→20:40)
[2024-06-23] MEDS: VENTOLIN NEBULES 2.5 MG INH ×4 (07:50→20:40)
[2024-06-23] MEDS: SPIRIVA RESPIMAT 2.5 MCG 2 PUFF INH (07:50)
[2024-06-23] MEDS: DILAUDID 0.5 MG IV ×2 (09:38→18:33)
[2024-06-23 10:03] LABS: % Basophils 0.5 % (0-2); % Eosinophils 0.4 % (0-6); % Immature Granulocytes 0.5 % (0-0.5); % Lymphocytes 9.1 % (20.5-51.1); % Monocytes 3.9 % (1.7-9.3); % Neutrophils 85.6 % (42.2-75.2); Absolute Basophils 0.1 10^3/uL (0-0.2); Absolute Immature Granulocytes 0.1 10^3/uL (0-0.05); Absolute Monocytes 0.4 10^3/uL (0.1-0.6); Absolute Neutrophils 9.5 10^3/uL (1.4-6.5); Hematocrit 41.4 % (37.0-47.0); Hemoglobin 13.2 g/dL (12.0-16.0); Mean Corp Hgb Conc. 31.9 g/dL (33.0-37.0); Mean Corpuscular Hgb 28.8 pg (27.0-31.0); Mean Corpuscular Volume 90.4 fL (81.0-99.0); Mean Platelet Volume 10.2 fL (7.4-10.4); Nucleated Red Blood Cells % 0 %; Platelet Count 346 10^3/uL (130-400); Red Blood Cell Count 4.58 10^6/uL (4.20-5.40); Red Cell Dist. Width 13.9 % (11.5-14.5); White Blood Cell Count 11.1 10^3/uL (4.8-10.8)
[2024-06-23 10:31] LABS: ALT (SGPT) 17 U/L (0-35); AST (SGOT) 26 U/L (14-36); Albumin 3.9 g/dl (3.5-5.0); Alkaline Phosphatase 171 U/L (38-126); Blood Urea Nitrogen 17 mg/dl (7-17); Calcium 9.5 mg/dl (8.4-10.2); Carbon Dioxide 27 mmol/L (22-30); Chloride 98 mmol/L (98-107); Estimated Creatinine Clearance 39 ml/min; Glucose 98 mg/dl (70-99); Potassium 4.6 mmol/L (3.5-5.1); Sodium 135 mmol/L (135-145); Total Bilirubin 0.7 mg/dl (0.2-1.3); Total Protein 7.4 g/dl (6.3-8.2); eGFR 33.63
[2024-06-23] MEDS: TYLENOL 1000 MG PO ×2 (10:36→19:46)
[2024-06-23] MEDS: WELLBUTRIN XL (24 hour extended release) 300 MG PO (10:37)
[2024-06-23] MEDS: ZOLOFT 100 MG PO (10:37)
[2024-06-23] MEDS: DELTASONE 10 MG PO ×2 (10:37→19:46)
[2024-06-23] MEDS: MUCINEX 600 MG PO ×2 (10:38→19:46)
[2024-06-23] MEDS: HEPARIN 5000 UNITS SC ×2 (10:41→19:46)
[2024-06-23] MEDS: FLEXERIL 5 MG PO ×2 (10:42→18:34)
[2024-06-23] MEDS: LASIX 40 MG IV (10:42)
--- NOTE | 2024-06-23 11:15 | W.PN.HOSP.TC ---
Today's Communication/Plan
-
Pain mgmt
neuroSx
ENT
Assessment / Plan
Assessment / Plan
74yo F with chronic hypoxic respiratory failure 3L home O2, COPD, Hx of benign thyroid nodue s/p biopsy, HFpEF, CKD 3b, former smoker, JUAN ANTONIO brought from home after fall without LOC and found compression fractures of the T11, T10,T8 and osteophytes
with the thecal indentation in cervical spine. No new focal neurological deficit. Admitted for intractable back pain.
Accidentally found subsentimeter pulm nodules and also complained of 1mo of voice hoarsness.
A/P:
#compression fractures of the T11, T10,T8
#osteophytes with thecal indentation in cervical spine
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 Outpatient [facility] to be consifered by PCP - patient verbalized understanding of the instructions
Flexeril helpd
pain mgmt
NeuroSx consult
PT/OT
#COPD, chronic whithout exacerbation with chronic hypoxic respiratory failure on 3L home O2 and chronic Prednisone
#RUL and GIANNI subsentimeter nodules
FOllows with Dr.Tran ordonez - advised close follow up for the nodules
cont bronchodilators
cont O2
Incentive spirometry since patient cannot ambulate yet with back pain
#Mild acute on chronic HFpEF
Lasix IV - switch to PO sinc elaine clinical CHF signs on physical exam
#CKD [id number]
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
#Anxiety/depression d/o
cont home meds
#L thyroid exophitic nodule
known and previously biopsied
#Voice hoarseness
ENT
DVT ppx hep
DNR/DNI
I have spent at least 58min reviewing chart, test results, communication with consultants and direct patient care
Anticipated Discharge: > 48 hours
Subjective/Interval History
-
Date of Service: June 23, 2024
Objective Data
-
Labs:
Laboratory Results
06/23/24
08:26
WBC 11.1 H
Hgb 13.2
Hct 41.4
Plt Count 346
Sodium 135
Potassium 4.6
Chloride 98
Carbon Dioxide 27
BUN 17
Creatinine 1.6 H
Glucose 98
Calcium 9.5
Total Bilirubin 0.7
AST 26
ALT 17
Alkaline Phosphatase 171 H
Vital Signs:
Vital Signs
Temp Pulse Resp BP Pulse Ox
97.8 F 63 16 136/74 97
06/23/24 07:19 06/23/24 07:51 06/23/24 07:51 06/23/24 07:19 06/23/24 07:51
I&O
06/22/24 06/23/24 06/24/24
06:59 06:59 06:59
Intake Total 480 / 480
Balance 480 / 480
Review of Systems
-
History Source: Patient
All other systems: Reviewed and negative
Physical Exam
-
General: No Apparent Distress
HEENT: Normocephalic
Respiratory: Clear to Auscultation
Cardiac: Regular Rhythm
GI: Soft, Nontender and Nondistended
Genito-urinary: No Costovertebral Tender
Musculoskeletal: No Clubbing, No Cyanosis and No Edema
Skin: Warm
Neuro: Awake, Alert, Oriented and AO x 3
Psych: Calm
--- NOTE | 2024-06-23 11:32 | W.PN.UPDATE ---
Update Note
Progress Note Update
as per discussion with ENT - they will see patient as outpatient
[2024-06-23 11:33] VITALS: BP 122/84
[2024-06-23 15:22] VITALS: BP 118/68
[2024-06-23 19:45] VITALS: BP 107/60
[2024-06-23 23:10] VITALS: BP 110/72
[2024-06-24] VITALS (8 sets, daily range): BP systolic 109–159; BP diastolic 41–93; PULSE 90–91; O2SAT 93–94; BMI 33.8
[2024-06-24] MEDS: SPIRIVA RESPIMAT 2.5 MCG 2 PUFF INH (07:27)
[2024-06-24] MEDS: VENTOLIN NEBULES 2.5 MG INH ×4 (07:28→20:01)
[2024-06-24] MEDS: SYMBICORT 160/4.5 MCG INHALER 2 PUFF INH ×2 (07:28→20:01)
--- NOTE | 2024-06-24 10:10 | CON.NS ---
Chief Complaint
History of Present Illness
This is [id number] female admitted status post fall. CTs of the cervical spine and head were obtained in the emergency room as well as a thoracic CAT scan. CT of the thoracic spine showed compression deformities at T8, T10, T11. There is also
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 She has had multiple falls. She has multiple comorbidities. Recently moved up from [place] to [place]. Stated that she has had low back pain for years. It locates around the sacroiliac
joints. Her pain currently is consistent with this pain. She denies any current weakness in her upper or lower extremities. Denies any paresthesias in her upper or lower extremities. Neurosurgery consult to see if vertebroplasty is necessary for
the thoracic compression deformities.
Review of Systems
-
10 point review of systems was completed and negative except stated in HPI
Medication and Allergies
Home Medications
Home Medications
�Medication �Instructions �Recorded
albuterol sulfate 90 mcg/actuation 2 puff inhalation R Q4HPRN PRN 12/29/22
aerosol inhaler sob/wheezing
loratadine 5 mg-pseudoephedrine ER 1 tab PO DAILY Allergies 12/29/22
120 mg tablet,extended
release,12hr (Claritin-D 12 Hour)
bupropion HCl 300 mg 24 hr tablet, 300 mg PO DAILY Depression 07/19/23
extended release
sertraline 25 mg tablet 100 mg PO DAILY Depression 07/19/23
budesonide 160 mcg-glycopyr 9 2 inh inhalation R BID 01/18/24
mcg-formot 4.8 mcg/actuation HFA Lung/Breathing Issues
inhaler (Breztri Aerosphere)
furosemide 40 mg tablet 40 mg PO DAILY Fluid 02/20/24
Retention/Swelling
lidocaine 4 % topical patch 1 patch topical DAILYPRN PRN 02/20/24
back/side pain
guaifenesin 600 mg tablet, 600 mg PO Q12 Lung/breathing 03/19/24
extended release 12 hr issues #30 tabs
albuterol sulfate 2.5 mg/3 mL 2.5 mg inhalation R QID 04/17/24
(0.083 %) solution for nebulization Lung/Breathing Issues
cyclobenzaprine 10 mg tablet 5 mg PO TIDPRN PRN muscle spasm 04/17/24
acetaminophen 500 mg tablet 1,000 mg PO BID Pain 06/22/24
(Tylenol Extra Strength)
melatonin 5 mg tablet 10 mg PO HSPRN PRN sleep 06/22/24
ondansetron 4 mg disintegrating 4 mg PO BIDPRN PRN nausea/vomiting 06/22/24
tablet
prednisone 10 mg tablet 10 mg PO BID Anti-Inflammatory 06/22/24
Allergies
Allergies
Allergy/AdvReac Type Severity Reaction Status Date / Time
ampicillin Allergy Hives Verified 06/22/24 11:26
coconut Allergy Hives Verified 06/22/24 11:26
mustard Allergy Hives Verified 06/22/24 11:26
Physical Exam
-
Exam:
Awake alert and oriented x 3
Cranials 2 through 12 gross intact
Motor strength reveals 5-5 upper lower extremity strength
Sensations normal in upper and lower extremities
Reflexes are normal
She has tenderness to palpation over bilateral sacroiliac joints with reproduction of her back pain. There is no midline thoracic tenderness.
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
[address] chest shows compression fractures at T8,T10,T11 which appear old
Problems
-
Problem Status Onset Code
Dyspnea R06.00
Falls R29.6
Compression fracture of thoracic vertebra S22.000A
CHF (congestive heart failure) I50.9
Assessment / Plan
-
T8, T10, T11 compression deformities
1. I do not believe that she is symptomatic from these. They appear old on CAT scan to me. Her pain is reproducible over her sacroiliac joints
2. Recommend PT/OT for sacroiliac joint/low back pain
3. Follow-up with physiatry as outpatient
4. No need for vertebroplasty
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
1. Appears asymptomatic
2. No surgical intervention warranted
Neurosurgery will sign off at this time please reconsult as needed
--- NOTE | 2024-06-24 10:32 | W.PN.HOSP.TC ---
Addendum entered and electronically signed by Biju Thomas MD 06/24/24 10:36:
No focal neurodeficit on assessment
pain in lower back, not radiating
otherwise PE and ROS unremarkable
Addendum entered and electronically signed by Biju Thomas MD 06/24/24 10:35:
correction: no procedures scheduled.
PT/OT and possible d/c - as per neuroSx - pain most likely from SI joints
Original Note:
Today's Communication/Plan
-
Pending cardio for CHET and monitor
Assessment / Plan
Assessment / Plan
74yo F with chronic hypoxic respiratory failure 3L home O2, COPD, Hx of benign thyroid nodue s/p biopsy, HFpEF, CKD 3b, former smoker, JUAN ANTONIO brought from home after fall without LOC and found compression fractures of the T11, T10,T8 and osteophytes
with the thecal indentation in cervical spine. No new focal neurological deficit. Admitted for intractable back pain.
Accidentally found subsentimeter pulm nodules and also complained of 1mo of voice hoarsness.
A/P:
#compression fractures of the T11, T10,T8
#osteophytes with thecal indentation in cervical spine
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 Outpatient Prolia to be consifered by PCP - patient verbalized understanding of the instructions
Flexeril helpd
pain mgmt
NeuroSx consult
PT/OT
#COPD, chronic whithout exacerbation with chronic hypoxic respiratory failure on 3L home O2 and chronic Prednisone
#RUL and GIANNI subsentimeter nodules
FOllows with Dr.Tran ordonez - advised close follow up for the nodules
cont bronchodilators
cont O2
Incentive spirometry since patient cannot ambulate yet with back pain
#Mild acute on chronic HFpEF
Lasix IV - switch to PO sinc elaine clinical CHF signs on physical exam
#CKD [id number]
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
#Anxiety/depression d/o
cont home meds
#L thyroid exophitic nodule
known and previously biopsied
#Voice hoarseness
ENT
DVT ppx hep
DNR/DNI
I have spent at least 58min reviewing chart, test results, communication with consultants and direct patient care
Anticipated Discharge: Within 24 hours
Subjective/Interval History
-
Date of Service: June 24, 2024
Objective Data
-
Vital Signs:
Vital Signs
Temp Pulse Resp BP Pulse Ox
97.5 F 80 16 121/62 93
06/24/24 07:18 06/24/24 07:29 06/24/24 07:29 06/24/24 07:18 06/24/24 07:29
I&O
06/23/24 06/24/24 06/25/24
06:59 06:59 06:59
Intake Total 480 / 480 1220 / 1220
Balance 480 / 480 1220 / 1220
Review of Systems
-
History Source: Patient
All other systems: Reviewed and negative
Physical Exam
-
General: Well Developed
HEENT: Normocephalic and Atraumatic
Respiratory: Clear to Auscultation
GI: Soft, Nontender and Nondistended
Genito-urinary: No Costovertebral Tender
Musculoskeletal: No Clubbing, No Cyanosis and No Edema
Skin: Warm
Neuro: Other (numbness in L upper face and L dorsal arm, since admission, weakness in LUE)
Psych: Calm
[2024-06-24] MEDS: HEPARIN 5000 UNITS SC ×2 (10:33→21:40)
[2024-06-24] MEDS: FLEXERIL 5 MG PO ×3 (10:33→17:39)
[2024-06-24] MEDS: TYLENOL 1000 MG PO ×2 (10:34→21:39)
[2024-06-24] MEDS: WELLBUTRIN XL (24 hour extended release) 300 MG PO (10:35)
[2024-06-24] MEDS: DELTASONE 10 MG PO ×2 (10:35→21:39)
[2024-06-24] MEDS: ZOLOFT 100 MG PO (10:36)
[2024-06-24] MEDS: MUCINEX 600 MG PO ×2 (10:36→21:39)
[2024-06-24] MEDS: LASIX 40 MG IV (10:37)
[2024-06-24] MEDS: DILAUDID 0.5 MG IV (21:52)
[2024-06-25 03:47] VITALS: BP 141/72
[2024-06-25 05:52] VITALS: BMI 33.7
[2024-06-25 07:00] VITALS: BP 137/82
[2024-06-25] MEDS: SYMBICORT 160/4.5 MCG INHALER 2 PUFF INH ×2 (07:11→20:24)
[2024-06-25] MEDS: VENTOLIN NEBULES 2.5 MG INH ×4 (07:11→20:24)
[2024-06-25] MEDS: SPIRIVA RESPIMAT 2.5 MCG 2 PUFF INH (07:11)
[2024-06-25] MEDS: MUCINEX 600 MG PO ×2 (09:19→19:56)
[2024-06-25] MEDS: FLEXERIL 5 MG PO ×3 (09:19→21:10)
[2024-06-25] MEDS: HEPARIN 5000 UNITS SC ×2 (09:19→20:00)
[2024-06-25] MEDS: DELTASONE 10 MG PO ×2 (09:19→20:00)
[2024-06-25] MEDS: TYLENOL 1000 MG PO ×2 (09:19→20:00)
[2024-06-25] MEDS: WELLBUTRIN XL (24 hour extended release) 300 MG PO (09:19)
[2024-06-25] MEDS: ZOLOFT 100 MG PO (09:19)
[2024-06-25] MEDS: LASIX 40 MG IV (09:20)
[2024-06-25] MEDS: ROXICODONE 5 MG PO ×2 (09:51→18:13)
[2024-06-25 11:00] VITALS: BP 152/77
--- NOTE | 2024-06-25 12:58 | W.PN.HOSP.TC ---
Today's Communication/Plan
-
CM for STR
Switch to Oxycodone
Assessment / Plan
Assessment / Plan
74yo F with chronic hypoxic respiratory failure 3L home O2, COPD, Hx of benign thyroid nodule s/p biopsy, HFpEF, CKD 3b, former smoker, JUAN ANTONIO brought from home after fall without LOC and found compression fractures of the T11, T10,T8 and osteophytes
with the thecal indentation in cervical spine. No new focal neurological deficit. Admitted for intractable back pain.
Accidentally found subcentimeter pulm nodules and also complained of 1mo of voice hoarseness. ENT will see patient as outpatient for that. As per NeuroSx - pain most likely 2/2 known SI joint pain. Patient was getting injections for that before.
Recommendation is PT/OT (STR at this time), main mgmt and main mgmt referral upon D/C. CM informed and working on placment
A/P:
#compression fractures of the T11, T10,T8
#osteophytes with thecal indentation in cervical spine
#SI joint pain
No pain over spine
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 Outpatient Prolia to be considered by PCP - patient verbalized understanding of the instructions
Flexeril helpd
pain mgmt
NeuroSx cons: advised PT/OT and pain mgmt as OP for SI joint injections
PT/OT
#COPD, chronic without exacerbation with chronic hypoxic respiratory failure on 3L home O2 and chronic Prednisone
#RUL and GIANNI subcentimeter nodules
FOllows with Dr.Tran ordonez - advised close follow up for the nodules
cont bronchodilators
cont O2
Incentive spirometry since patient cannot ambulate yet with back pain
#Mild acute on chronic HFpEF
Lasix IV - switch to PO sinc elaine clinical CHF signs on physical exam
#CKD [id number]
#Chronic leukocytosis 2/2 steroids
#Anxiety/depression d/o
cont home meds
#L thyroid exophytic nodule
known and previously biopsied
#Voice hoarseness
ENT
DVT ppx hep
DNR/DNI
I have spent at least 38min reviewing chart, test results, communication with consultants and direct patient care
Anticipated Discharge: Within 24 hours
Subjective/Interval History
-
Date of Service: June 25, 2024
Objective Data
-
Vital Signs:
Vital Signs
Temp Pulse Resp BP Pulse Ox
97.9 F 88 16 152/77 92
06/25/24 11:00 06/25/24 11:10 06/25/24 11:10 06/25/24 11:00 06/25/24 11:00
I&O
06/24/24 06/25/24 06/26/24
06:59 06:59 06:59
Intake Total 1220 / 1220 1080 / 1080
Balance 1220 / 1220 1080 / 1080
Review of Systems
-
History Source: Patient
All other systems: Reviewed and negative
Physical Exam
-
General: No Apparent Distress
HEENT: Normocephalic and Atraumatic
Respiratory: Clear to Auscultation
Cardiac: Regular Rhythm
GI: Soft, Nontender and Nondistended
Genito-urinary: No Costovertebral Tender
Musculoskeletal: No Clubbing, No Cyanosis and No Edema
Neuro: Awake, Alert, Oriented and AO x 3
[2024-06-25] MEDS: FLEXERIL PO (13:53)
[2024-06-25 14:23] VITALS: BP 131/74; PULSE 103; O2SAT 91
[2024-06-25 15:00] VITALS: BP 144/100
--- NOTE | 2024-06-25 16:20 | CM ---
Alert awake oriented patient who lives with her daughter Alma Delia who lives in a one story home with 2 steps to enter and bed bathroom on first floor. .
She is assisted in all activities of daily living.She said a hopsital bed was delivered to home today. She has a wheelchair walker oxygen Regina with [employer].
Reviewed PT OT with pt . She requested referral to [facility].Care port entered. Elvi [facility] notified.
[facility]acy [facility]
PCP Dr Ant Llanos
PLAN To SNF of accepted
[2024-06-25] MEDS: SENOKOT 8.6 MG PO (21:17)
[2024-06-25] MEDS: ROBITUSSIN 100 MG PO (21:18)
[2024-06-25 23:00] VITALS: BP 96/59
[2024-06-26 05:15] VITALS: BMI 33.3
[2024-06-26] MEDS: FLEXERIL 5 MG PO ×2 (06:25→15:03)
[2024-06-26] MEDS: SYMBICORT 160/4.5 MCG INHALER 2 PUFF INH (07:34)
[2024-06-26] MEDS: SPIRIVA RESPIMAT 2.5 MCG 2 PUFF INH (07:34)
[2024-06-26] MEDS: VENTOLIN NEBULES 2.5 MG INH ×3 (07:34→15:41)
[2024-06-26 07:35] VITALS: BP 127/71
[2024-06-26] MEDS: WELLBUTRIN XL (24 hour extended release) 300 MG PO (08:32)
[2024-06-26] MEDS: DELTASONE 10 MG PO (08:33)
[2024-06-26] MEDS: ZOLOFT 100 MG PO (08:33)
[2024-06-26] MEDS: MUCINEX 600 MG PO (08:34)
[2024-06-26] MEDS: TYLENOL 1000 MG PO (08:35)
[2024-06-26] MEDS: LASIX 40 MG IV (08:37)
[2024-06-26] MEDS: HEPARIN 5000 UNITS SC (08:40)
--- NOTE | 2024-06-26 14:25 | CM ---
Addendum entered by Francisca Jewell 06/26/24 14:54:
Patient reports daughter will provide transportation around 4:30/5:00 p.m. Update to patients nurse, update to [facility] at [facility].
Plan; [facility] SN[facility], daughter to transport 4:30/5:00 p.m.
Report: [phone]

Original Note:
Patient seen bedside, patient agreeable to go to [facility]. Per Elvi, admissions at [facility], patient has 36 MC days left, also currently have covid in building. Patient aware, still agreeable to [facility]. Patient reports daughter will transport her,
unable to get through to daughter at this time, patient will call back to discuss transport times. IMM reviewed, signed, placed in chart. CM will continue to follow for all discharge planning needs.
Plan; [facility], daughter will transport, awaiting time.
--- NOTE | 2024-06-26 14:46 | W.DS.TRANS ---
DC Summary - Audiology Assistant
-
Discharge Instructions:
Discharge Diagnosis/Procedures Back pain with ambulatory dyfunction
Chrinic hypoxic respiratory failure
Chronic COPD
Chronic CHF
Diet 2 Gram Sodium
Instructions: *PCP/Other J2Ee Consultant Heart Failure Instructions
Stand-Alone Forms:
Changes to Home Medications: No
Discharge Medications:
DC Medications w/original date entered in [employer]
albuterol sulfate 90 mcg/actuation aerosol inhaler 2 puff inhalation R Q4HPRN PRN sob/wheezing 12/29/22
loratadine 5 mg-pseudoephedrine ER 120 mg tablet,extended release,12hr (Claritin-D 12 Hour) 1 tab PO DAILY Allergies 12/29/22
bupropion HCl 300 mg 24 hr tablet, extended release 300 mg PO DAILY Depression 07/19/23
sertraline 25 mg tablet 100 mg PO DAILY Depression 07/19/23
budesonide 160 mcg-glycopyr 9 mcg-formot 4.8 mcg/actuation HFA inhaler (Breztri Aerosphere) 2 inh inhalation R BID Lung/Breathing Issues 01/18/24
furosemide 40 mg tablet 40 mg PO DAILY Fluid Retention/Swelling 02/20/24
lidocaine 4 % topical patch 1 patch topical DAILYPRN PRN back/side pain 02/20/24
guaifenesin 600 mg tablet, extended release 12 hr 600 mg PO Q12 Lung/breathing issues #30 tabs 03/19/24
albuterol sulfate 2.5 mg/3 mL (0.083 %) solution for nebulization 2.5 mg inhalation R QID Lung/Breathing Issues 04/17/24
cyclobenzaprine 10 mg tablet 5 mg PO TIDPRN PRN muscle spasm 04/17/24
acetaminophen 500 mg tablet (Tylenol Extra Strength) 1,000 mg PO BID Pain 06/22/24
melatonin 5 mg tablet 10 mg PO HSPRN PRN sleep 06/22/24
ondansetron 4 mg disintegrating tablet 4 mg PO BIDPRN PRN nausea/vomiting 06/22/24
prednisone 10 mg tablet 10 mg PO BID Anti-Inflammatory 06/22/24
Home Medication Changes
Pending Results: No
[2024-06-26 15:44] VITALS: BP 139/105
[2024-06-26 17:19] VITALS: BP 131/83
== END 2024-06-26 17:55 | DRG 542 ==
LOC: 4 WEST ACU 17:22
PROVIDERS: Physician Assistant; ADMITTING PHYSICIAN Hospitalist; ATTENDING PHYSICIAN Internal Medicine; EMERGENCY PHYSICIAN Emergency Medicine; OTHER PHYSICIAN Neurological Surgery
DX: M80.08XA Age-related osteoporosis with current pathological fracture, vertebra(e), initial encounter for fracture (principal); I50.33 Acute on chronic diastolic (congestive) heart failure; J96.11 Chronic respiratory failure with hypoxia; J44.9 Chronic obstructive pulmonary disease, unspecified; F41.9 Anxiety disorder, unspecified; F32.A Depression, unspecified; N18.32 Chronic kidney disease, stage 3b; G47.33 Obstructive sleep apnea (adult) (pediatric); K59.00 Constipation, unspecified; G47.00 Insomnia, unspecified; D72.828 Other elevated white blood cell count; T38.0X5A Adverse effect of glucocorticoids and synthetic analogues, initial encounter; M25.78 Osteophyte, vertebrae; G89.29 Other chronic pain; M54.50 Low back pain, unspecified; R91.8 Other nonspecific abnormal finding of lung field; E04.1 Nontoxic single thyroid nodule; R49.0 Dysphonia; J43.9 Emphysema, unspecified; E66.01 Morbid (severe) obesity due to excess calories; Z68.35 Body mass index [BMI] 35.0-35.9, adult; Z88.0 Allergy status to penicillin; Z79.899 Other long term (current) drug therapy; Z87.891 Personal history of nicotine dependence; Z99.81 Dependence on supplemental oxygen; W06.XXXA Fall from bed, initial encounter; Z79.52 Long term (current) use of systemic steroids
CPT/HCPCS: 70450; 71111; 71250; 72125; 73030; 80053; 83880; 84484; 85025; 87070; 93005; 94640; 96374; 96375; 96376; 97162; 97166; 97530; 97535; 99285

== ENCOUNTER → 2024-06-28 09:49 | Outpatient (REF) | payer OTHER, MEDICARE, SELFPAY ==
[2024-06-28 10:58] LABS: Blood Urea Nitrogen 42 mg/dl (7-17); Calcium 9.2 mg/dl (8.4-10.2); Carbon Dioxide 27 mmol/L (22-30); Chloride 102 mmol/L (98-107); Glucose 88 mg/dl (70-99); Potassium 4.4 mmol/L (3.5-5.1); Sodium 136 mmol/L (135-145); eGFR 33.63
[2024-06-28 11:14] LABS: % Basophils 0.3 % (0-2); % Eosinophils 0.3 % (0-6); % Immature Granulocytes 1.1 % (0-0.5); % Lymphocytes 8.8 % (20.5-51.1); % Monocytes 6.9 % (1.7-9.3); % Neutrophils 82.6 % (42.2-75.2); Absolute Eosinophils 0.1 10^3/uL (0-0.7); Absolute Immature Granulocytes 0.2 10^3/uL (0-0.05); Absolute Lymphocytes 1.3 10^3/uL (1.2-3.4); Absolute Neutrophils 12.2 10^3/uL (1.4-6.5); Hematocrit 40.1 % (37.0-47.0); Hemoglobin 12.7 g/dL (12.0-16.0); Mean Corp Hgb Conc. 31.7 g/dL (33.0-37.0); Mean Corpuscular Volume 91.6 fL (81.0-99.0); Nucleated Red Blood Cells % 0 %; Platelet Count 424 10^3/uL (130-400); Red Blood Cell Count 4.38 10^6/uL (4.20-5.40); Red Cell Dist. Width 14.3 % (11.5-14.5); White Blood Cell Count 14.7 10^3/uL (4.8-10.8)
== END ==
LOC: OLABP 09:49
PROVIDERS: ATTENDING PHYSICIAN Family Medicine
DX: J44.1 Chronic obstructive pulmonary disease with (acute) exacerbation (principal); N18.30 Chronic kidney disease, stage 3 unspecified; M62.81 Muscle weakness (generalized); I50.31 Acute diastolic (congestive) heart failure; E04.1 Nontoxic single thyroid nodule; R49.0 Dysphonia; M48.00 Spinal stenosis, site unspecified
CPT/HCPCS: 36415; 80048; 85025

== ENCOUNTER → 2024-07-04 12:12 | Outpatient (REF) | payer OTHER, MEDICARE, SELFPAY ==
[2024-07-04 13:31] LABS: % Basophils 0.1 % (0-2); % Eosinophils 0.1 % (0-6); % Immature Granulocytes 1.2 % (0-0.5); % Lymphocytes 7.1 % (20.5-51.1); % Monocytes 4.2 % (1.7-9.3); % Neutrophils 87.3 % (42.2-75.2); Absolute Immature Granulocytes 0.2 10^3/uL (0-0.05); Absolute Monocytes 0.6 10^3/uL (0.1-0.6); Hematocrit 35.5 % (37.0-47.0); Hemoglobin 11.2 g/dL (12.0-16.0); Mean Corp Hgb Conc. 31.5 g/dL (33.0-37.0); Mean Corpuscular Hgb 29.4 pg (27.0-31.0); Mean Corpuscular Volume 93.2 fL (81.0-99.0); Nucleated Red Blood Cells % 0 %; Platelet Count 439 10^3/uL (130-400); Red Blood Cell Count 3.81 10^6/uL (4.20-5.40); Red Cell Dist. Width 14.8 % (11.5-14.5); White Blood Cell Count 13.7 10^3/uL (4.8-10.8)
[2024-07-04 14:17] LABS: Blood Urea Nitrogen 46 mg/dl (7-17); Carbon Dioxide 29 mmol/L (22-30); Chloride 104 mmol/L (98-107); Glucose 155 mg/dl (70-99); Potassium 4.8 mmol/L (3.5-5.1); Sodium 135 mmol/L (135-145); eGFR 39.48
== END ==
LOC: OLABP 12:12
PROVIDERS: ATTENDING PHYSICIAN Family Medicine
DX: J44.1 Chronic obstructive pulmonary disease with (acute) exacerbation (principal); M62.81 Muscle weakness (generalized); N18.30 Chronic kidney disease, stage 3 unspecified; I50.31 Acute diastolic (congestive) heart failure; E04.1 Nontoxic single thyroid nodule; R49.0 Dysphonia; M48.00 Spinal stenosis, site unspecified
CPT/HCPCS: 36415; 80048; 85025

== ENCOUNTER 2024-08-01 20:23 | Inpatient (IN) | payer MEDICARE, SELFPAY ==
[2024-08-01] VITALS (11 sets, daily range): BP systolic 99–140; BP diastolic 54–89; BMI 32.2
--- NOTE | 2024-08-01 15:54 | EDRN ---
attempted to get clean catch urine, pt voided in toilet and missed hat.
--- NOTE | 2024-08-01 16:19 | ED.GENMED ---
History of Present Illness
General
Chief Complaint: Generalized Pain
Source: patient
Exam Limitations: none
Time Seen by Provider: 08/01/24 16:05
History of Present Illness
History of Present Illness:
74-year-old female with history of COPD, CHF recurrent UTIs presents with pain over the lower abdomen and flanks with increased work of breathing and oxygen demand. Typically she requires 4 L of oxygen. She has been more short of breath on 4 L.
Her daughter states she has been confused and seeing things that are not there. She wears depends and is incontinent and is prone to UTIs. Seen at the family [facility] today and sent here for evaluation. She was here recently for COPD exacerbation
Past History
Past History
ED Past Medical History: CHF, COPD (2-3 liters NC), Psychiatric (Anxiety, Depression, ) and Other (Spinal stenosis, morbid obesity, Bilateral kidney stones, Ulcers, Sleep apnea, )
ED Past Surgical History: Cholecystectomy, Orthopedic (Left shoulder reconstruction. ), Urological (Kidney surgery) and Other (Fasciotomy for fasciitis with wound VAC of lower back and thigh)
Social History
Tobacco: Former smoker
Alcohol: None
Drug: None
Personal:
Living: with family
Employment: Retired
Family History
Family History: Other (Noncontributory)
Phy Exam
Physical Exam
Physical Exam:
General: Well-developed female with increased work of breathing
HEENT: Normocephalic atraumatic
Heart: Tachycardic but regular
Lungs: Diffuse inspiratory and expiratory wheeze
Abdomen soft mildly tender to the lower abdomen no guarding or rebound
Extremities: No significant edema
Skin warm no rash
Sepsis
Sepsis Screening
Sepsis Assessment: Severe Sepsis
Sepsis Screening: Lactate >2mmol/L
Sepsis Screen
Sepsis Screen: Severe Sepsis
Date: 08/01/24
Time: 19:39
Course
Orders/Labs/Results
Orders:
Orders
08/01/24 15:37
Electrocardiogram (*1) Urgent
Reason for Study: Other
Other Reason for Exam: Possible Sepsis
EKG- Treatment ONCE
08/01/24 16:13
CR Chest Portable - 1 View Urgent
Comment:
Reason For Exam: sob
Reason Study Needs to be Portable: Patient Unstable
08/01/24 16:14
CT Abd/pelvis Wo Iv Cont Urgent
Reason For Exam: flank pain
08/01/24 16:17
Ipratropium/Albuterol Sulfate [Duoneb] 3 ml INH R NOW STA
08/01/24 16:34
Urinalysis Reflex To Culture Urgent
Date Specimen was Collected: 08/01/24
Time Specimen was Collected: 15:37
Urine Microscopic Reflex Cult Urgent
Urine Culture Urgent
ALLI Source: U
Specimen Description:
Date Specimen was Collected: 08/01/24
Time Specimen was Collected: 15:37
08/01/24 17:04
Complete Blood Count/With Diff Urgent
Comprehensive Metabolic Panel Urgent
Lactic Acid Urgent
NT-proBNP Urgent
08/01/24 19:25
Piperacillin/Tazo 3.375 Gram [Zosyn] 3.375 gram in 50 ml IV NOW
08/01/24 19:28
Blood Culture Urgent
ALLI Source: Blood/Venous
Specimen Description:
0.9% Sodium Chloride 500 ml [Nss] 500 ml IV BOLUS
08/01/24 19:58
Blood Culture Routine
ALLI Source: Blood/Venous
Specimen Description:
08/01/24 20:00
Vancomycin [Vancocin] 1,250 mg 0.9% Sodium Chloride 250 ml [Nss] 250 ml IV Q24H
Abnormal Lab Results
08/01/24 08/01/24
16:34 17:04
WBC 18.4 H 10^3/uL
(4.8-10.8)
MCHC 32.6 L g/dL
(33.0-37.0)
Plt Count 468 H 10^3/uL
(130-400)
Abs Immat Gran (auto) 0.2 H 10^3/uL
(0-0.05)
Absolute Neuts (auto) 15.4 H 10^3/uL
(1.4-6.5)
Absolute Monos (auto) 1.3 H 10^3/uL
(0.1-0.6)
Immature Gran % 0.9 H %
(0-0.5)
Neutrophils % 84.1 H %
(42.2-75.2)
Lymphocytes % 6.9 L %
(20.5-51.1)
Potassium 3.4 L mmol/L
(3.5-5.1)
Chloride 95 L mmol/L
(98-107)
BUN 29 H mg/dl
(7-17)
Creatinine 2.1 H mg/dL
(0.6-1.0)
Glucose 113 H mg/dl
(70-99)
Lactic Acid 2.1 H mmol/L
(0.7-2.0)
Alkaline Phosphatase 196 H U/L
(38-126)
Ur Occult Blood Reflex Trace A
(Negative)
Urine Nitrite (Reflex) Positive A
(Negative)
Urine Bilirubin 1+ A
(Negative)
Leukocyte Esterase Rfl 2+ A
(Negative)
Urine WBC (Reflex) 90-100 A /HPF
(0-5)
Urine Bacteria (Reflex) Moderate A
(Negative)
08/01/24 17:04
08/01/24 17:04
Vital Signs
Initial and Last Documented VS:
Initial Vital Signs
Temp Pulse Resp BP Pulse Ox
97.8 F 105 24 110/74 96
08/01/24 15:31 08/01/24 15:31 08/01/24 15:31 08/01/24 15:31 08/01/24 15:31
Last Documented Vital Signs
Temp Pulse Resp BP Pulse Ox
97.8 F 98 27 99/79 96
08/01/24 15:31 08/01/24 18:20 08/01/24 18:20 08/01/24 18:20 08/01/24 18:00
MDM/Problems Addressed
Differential Diagnosis Includes:
Shortness of breath, confusion, lower abdominal pain. Differential could include UTI versus pyelonephritis or COPD flare versus pneumonia versus a combination of the above
Will check straight cath urine. Labs pending. BNP ordered. Portable chest x-ray and CAT scan of the abdomen ordered.
*Critical Care Note
Total Time (30-74mins, 75-104mins- exclusive of procedures): Not Applicable
Update Note
Update Note:
Workup here shows bibasilar pneumonia on abdominal CT. There is UTI and urinalysis. White blood cell count is 18,000. Vital signs stable currently. Explained his results to patient. Patient was recently admitted for COPD flare. Will cover for
hospital-acquired pneumonia with vancomycin and Zosyn. Gave small fluid bolus given slightly soft blood pressure. Discussed with attending. Will admit
ED Attending Note
-
Portions of this chart may have been created with voice recognition software.� Occasional wrong word or��sound alike� substitutions may have occurred due to the inherent limitations of voice recognition software.
Discharge Plan
Departure
Patient Disposition: Admit
Date of Disposition: 08/01/24
Time of Disposition: 19:38
Admit to: Telemetry
Presentation/result/management discussed w/ accepting MD/DO: Hospitalist
Discharge Problem:
Pneumonia, Acute UTI
Prescriptions:
No Action
Claritin-D 12 Hour 5-120 mg Tablet Extended Release 12 Hr
1 tab PO DAILY
albuterol sulfate 90 mcg/actuation HFA aerosol inhaler
2 puff INHALATION R Q4HPRN PRN (Reason: sob/wheezing)
sertraline 25 mg tablet
100 mg PO DAILY
bupropion HCl 300 mg tablet extended release 24 hr
300 mg PO DAILY
Breztri Aerosphere 160-9-4.8 mcg/actuation HFA aerosol inhaler
2 inh INHALATION R BID
furosemide 40 mg tablet
40 mg PO DAILY
lidocaine 4 % adhesive patch,medicated
1 patch topical DAILYPRN PRN (Reason: back/side pain)
guaifenesin 600 mg Tablet Extended Release 12hr
600 mg PO Q12 Qty: 30 0RF
albuterol sulfate 2.5 mg /3 mL (0.083 %) Solution For Nebulization
2.5 mg INHALATION R QID
cyclobenzaprine 10 mg tablet
5 mg PO TIDPRN PRN (Reason: muscle spasm)
ondansetron 4 mg tablet,disintegrating
4 mg PO BIDPRN PRN (Reason: nausea/vomiting)
prednisone 10 mg tablet
10 mg PO BID
acetaminophen [Tylenol Extra Strength] 500 mg tablet
1,000 mg PO BID
melatonin 5 mg tablet
10 mg PO HSPRN PRN (Reason: sleep)
Referrals:
Ant Diaz DO [Family Provider] -
Interventions
Interventions:
*Risk Screen - Suicide Last Done: 08/01/24 15:31
*General Assessment Last Done: 08/01/24 16:30
*Neglect/Abuse Screening Last Done: 08/01/24 16:30
ED- Fall Risk Assessment Last Done: 08/01/24 16:30
*ED COVID-19 Vaccine History Last Done: 08/01/24 16:30
Discharge Date and Time
Print Language: TUVALUAN
[2024-08-01] MEDS: DUONEB 3 ML INH (17:08)
[2024-08-01 17:13] LABS: Urine Albumin Trace (Neg - Trace); Urine Bilirubin 1+ (Negative); Urine Character Clear (Clear); Urine Color Yellow; Urine Glucose Negative (Negative); Urine Ketone Negative (Negative); Urine Leukocyte 2+ (Negative); Urine Nitrite Positive (Negative); Urine Occult Blood Trace (Negative); Urine Urobilinogen Negative (Neg - 1+)
[2024-08-01 17:18] LABS: % Basophils 0.4 % (0-2); % Eosinophils 0.7 % (0-6); % Immature Granulocytes 0.9 % (0-0.5); % Lymphocytes 6.9 % (20.5-51.1); % Neutrophils 84.1 % (42.2-75.2); Absolute Basophils 0.1 10^3/uL (0-0.2); Absolute Eosinophils 0.1 10^3/uL (0-0.7); Absolute Immature Granulocytes 0.2 10^3/uL (0-0.05); Absolute Lymphocytes 1.3 10^3/uL (1.2-3.4); Absolute Monocytes 1.3 10^3/uL (0.1-0.6); Absolute Neutrophils 15.4 10^3/uL (1.4-6.5); Hemoglobin 12.7 g/dL (12.0-16.0); Mean Corp Hgb Conc. 32.6 g/dL (33.0-37.0); Mean Corpuscular Hgb 28.5 pg (27.0-31.0); Mean Corpuscular Volume 87.4 fL (81.0-99.0); Mean Platelet Volume 9.6 fL (7.4-10.4); Nucleated Red Blood Cells % 0 %; Platelet Count 468 10^3/uL (130-400); Red Blood Cell Count 4.46 10^6/uL (4.20-5.40); Red Cell Dist. Width 14.4 % (11.5-14.5); White Blood Cell Count 18.4 10^3/uL (4.8-10.8)
[2024-08-01 17:32] LABS: Lactic Acid 2.1 mmol/L (0.7-2.0)
[2024-08-01 17:33] LABS: ALT (SGPT) 14 U/L (0-35); AST (SGOT) 23 U/L (14-36); Albumin 3.6 g/dl (3.5-5.0); Alkaline Phosphatase 196 U/L (38-126); Blood Urea Nitrogen 29 mg/dl (7-17); Calcium 9.2 mg/dl (8.4-10.2); Carbon Dioxide 29 mmol/L (22-30); Chloride 95 mmol/L (98-107); Glucose 113 mg/dl (70-99); Potassium 3.4 mmol/L (3.5-5.1); Sodium 138 mmol/L (135-145); Total Bilirubin 0.6 mg/dl (0.2-1.3); Total Protein 6.7 g/dl (6.3-8.2); eGFR 24.27
[2024-08-01 17:38] LABS: Urine Bacteria Moderate (Negative); Urine Red Blood Cell 0-2 /HPF (0-2); Urine White Cell 90-100 /HPF (0-5)
[2024-08-01 17:40] LABS: NT-proBNP 3250 pg/ml
--- NOTE | 2024-08-01 19:36 | HPS.HSE ---
Family Physician
-
Family Physician: Ant Diaz
Chief Complaint
-
sob
cough
History of Present Illness
74-year-old female with history of COPD, CHF recurrent UTIs presented to us with runny nose cough, congestion for past 2 to 3 days . Cough with yellowish to green sputum .patient stated short of breath which is worse with exertion .denies chest
pain .patient denied fever, chills .denied headache, dizziness, syncopal episode. Patient stated , she was confused and hallucinating at times .patient complained of lower back hip to hip pain denied abdominal pain, nausea, vomiting . And diarrhea
.patient denied dysuria or hematuria.
Upon arrival she need required 4 L of oxygen . She uses 3 L at home .chest CT with pneumonia. Chest x-ray with pulmonary edema. Patient received Vanco and Zosyn in ER. Admitted for further management
Medical History
Past Medical History
Past Medical History: Reports Other
Additional Past Medical History:
CHF
COPD
Sleep apnea
Gallstones
Kidney stones
Bronchitis
Hypertension
COPD
Anxiety
Depression
Carpal tunnel release
Past Surgical History: Reports Other
Additional Past Surgical History:
Shoulder surgery
Knee replacement
Social History
Tobacco: Former Smoker
Alcohol: None
Drug: None
Living: With Family
Family History
Family History: Not pertinent
Allergies / Home Medications
Allergies reflects when Allergies were last updated in [employer].
Home Medications with original date entered in [employer]
Allergy/Medication List:
Allergies
Allergy/AdvReac Type Severity Reaction Status Date / Time
ampicillin Allergy Hives Verified 08/01/24 15:36
coconut Allergy Hives Verified 08/01/24 15:36
mustard Allergy Hives Verified 08/01/24 15:36
Home Medications
albuterol sulfate 90 mcg/actuation aerosol inhaler 2 puff inhalation R Q4HPRN PRN sob/wheezing 12/29/22
loratadine 5 mg-pseudoephedrine ER 120 mg tablet,extended release,12hr (Claritin-D 12 Hour) 1 tab PO BID Allergies 12/29/22
bupropion HCl 300 mg 24 hr tablet, extended release 300 mg PO DAILY Depression 07/19/23
budesonide 160 mcg-glycopyr 9 mcg-formot 4.8 mcg/actuation HFA inhaler ([email or web address] Aerosphere) 2 inh inhalation R BID Lung/Breathing Issues 01/18/24
furosemide 40 mg tablet 40 mg PO DAILY Fluid Retention/Swelling 02/20/24
albuterol sulfate 2.5 mg/3 mL (0.083 %) solution for nebulization 2.5 mg inhalation R QID Lung/Breathing Issues 04/17/24
acetaminophen 500 mg tablet (Tylenol Extra Strength) 1,000 mg PO BID Pain 06/22/24
melatonin 5 mg tablet 10 mg PO HSPRN PRN sleep 06/22/24
ondansetron 4 mg disintegrating tablet 4 mg PO BIDPRN PRN nausea/vomiting 06/22/24
cyclobenzaprine 5 mg tablet 5 mg PO TIDPRN PRN muscle spasms 08/01/24
guaifenesin 600 mg tablet, extended release 12 hr 600 mg PO Q12H Lung/breathing issues 08/01/24
oxycodone 5 mg tablet 5 mg PO Q6HPRN PRN severe pain 08/01/24
sertraline 100 mg tablet 100 mg PO DAILY 08/01/24
Review of Systems
-
Constitutional: Reports No Symptoms and Fatigue
EENT: Reports No Symptoms
Respiratory: Reports Cough and Trouble Breathing
Cardiac: Reports No Symptoms
Abdomen/GI: Reports No Symptoms
: Reports Other (Decreased urine output)
Musculoskeletal: Reports Other (Lower back pain)
Skin: Reports No Symptoms
Neurological: Reports No Symptoms
Endocrine: Reports No Symptoms
Hematologic/Lymphatic: Reports No Symptoms
Psych: Reports No Symptoms
Physical Exam
Vital Signs
Vital Signs
Temp Pulse Resp BP Pulse Ox
97.8 F 98 27 99/79 96
08/01/24 15:31 08/01/24 18:20 08/01/24 18:20 08/01/24 18:20 08/01/24 18:00
Physical Exam
General: Well Developed, Well Nourished and No Apparent Distress
HEENT: NormoCephalic, Moist mucous membranes and Atraumatic
Respiratory: Wheezes, Rales and Rhonchi
Cardiac: S1/S2 and Regular Rhythm; No Murmur or Rub
GI: Soft, Non Tender, Non Distended and Normal Bowel Sounds; No Organomegaly
Rectal: Deferred by Provider
Musculoskeletal: No Clubbing, No Cyanosis and No Edema
Skin: No Rash
Neuro: AO x 3 and Nonfocal/grossly intact
Psych: Calm
Laboratory Results
-
08/01/24 17:04
08/01/24 17:04
Laboratory Results
Lactic Acid 2.1 mmol/L (0.7-2.0) H 08/01/24 17:04
Total Bilirubin 0.6 mg/dl (0.2-1.3) 08/01/24 17:04
AST 23 U/L (14-36) 08/01/24 17:04
ALT 14 U/L (0-35) 08/01/24 17:04
Alkaline Phosphatase 196 U/L (38-126) H 08/01/24 17:04
Data Reviewed
-
Diagnostic Radiology: Report Reviewed by me
CT Scan: Report Reviewed by me
Lab Data: Labs Reviewed by me
Impression/Plan
-
# Acute on chronic hypoxic respiratory failure likely from pneumonia
-Sepsis as evident by WBCs 18.4, lactic 2.1
-CT abdomen pelvis with impression of moderate new acinar airspace disease at both lung bases suggesting bibasilar pneumonia There are multiple compression fractures in the lumbar and lower thoracic spine which are new when compared with the prior
study.There is 3 mm nonobstructing calculus in the posterior midportion of the right kidney, mild bilateral renal cortical atrophy and a 3.5 cm right renal cyst but there are no obstructing renal or ureteral calculi and there is no hydronephrosis or
hydroureter
-IV Vanco and Zosyn in ER
-Continue with IV ceftriaxone and azithromycin
-Blood cultures sent
-Tylenol as needed for fever
-Trend lactic, curve WBCs
# Multiple compression fractures in the lumbar and lower thoracic spine most likely secondary to osteoporosis and chronic steroids
-PT/OT consulted
-Flexeril continued
-Oxycodone continued
# Urinary tract infection
-IV ceftriaxone and continued
# Hypokalemia/[place] on CKD stage IIIb likely from fluid overload
-K3.4, creatinine 2.1, BUN 29
-Oral KCl in ER
-Continue to monitor BMP
# Possible CHF exacerbation
-BNP 3250
-Chest x-ray with impression of here is cephalization of the pulmonary vasculature suggesting borderline pulmonary edema.The lungs are otherwise clear
-one time dose lasix in ER.
-hold home Lasix, consider continuing Lasix in AM
-Strict WILI
-Daily weight
# COPD exacerbation
-Nebs continued
-Continue supplemental oxygen to keep sat greater than 92
-Wean as tolerated
#Anxiety/depression d/o
-Bupropion,, sertraline continued
DVT ppx hep
DNR/DNI
--- NOTE | 2024-08-01 19:45 | W.PN.UPDATE ---
Update Note
Progress Note Update
This is an addendum to H&P written by DEMURRAGE AGENT Trinh Mcelroy
I saw and examined the patient.
The DEMURRAGE AGENT's note was reviewed and I agree with the note.
Comment:
Ms. Flory Gregg is a 74 yo woman with hx HFpEF, COPD, CKD III B, compression fractures (admission 06/22-06/26/24) presents to the ER with cough, congestion and shortness of breath. She also reports dysuria.
Triage VS: T 97.8, P 105, RR 24, BP 110/74, SpO2 96%
On exam she is tachypneic, conversant. Lungs with rales. No LE swelling. Abdomen benign.
LABS: WBC 18.4, Hg 12.7, PLT 468, Na 138, K+ 3.4, Cr 2.1, T. Bili 0.6, AST 23, ALT 14, Alk Phos 196, BNP 3250
UA with 90-100 WBC
CXR
IMPRESSION:
There is cephalization of the pulmonary vasculature suggesting borderline pulmonary edema
The lungs are otherwise clear
CT A/P
IMPRESSION:
1). There is moderate new acinar airspace disease at both lung bases suggesting bibasilar pneumonia
2). There are multiple compression fractures in the lumbar and lower thoracic spine which are new when compared with the prior study.
3). There is 3 mm nonobstructing calculus in the posterior midportion of the right kidney, mild bilateral renal cortical atrophy and a 3.5 cm right renal cyst but there are no obstructing renal or ureteral calculi and there is no hydronephrosis or
hydroureter
MAR: IVF, Vanc/Zosyn, potassium,
Sepsis (elevated WBC, P and RR) 2/2 community acquired PNA and possible UTI contributing
-admit to telemetry
-IV Ceftriaxone/Azithro
-F/U Flu and covid
-F/U urine and blood cultures
HFpEF, acute Exacerbation
-patient appears volume overloaded. Will give lasix 40mg IV x 1 but hold on standing until labs re-evaluated tomorrow morning given V[place]
VIR[place]IA
-lasix 40mg IV x 1 as above
-monitor renal functon closely with diuresis
COPD
-shortness of breath appears to be more 2/2 heart failure. No significant wheezing, + rales
-standing nebs and NON PROFIT DIRECTOR regimen
-low threshold to start standing steroids if wheezing develops
Recent admission for compression fractures
-PT/OT
-pain control
Remainder of plan per DEMURRAGE AGENT note
Time spent on admission 76 minutes
[2024-08-01 20:36] LABS: COVID-19 Antigen Negative (Negative)
[2024-08-01] MEDS: LASIX 40 MG IV (20:39)
[2024-08-01] MEDS: NSS 500 IV (20:39)
[2024-08-01] MEDS: KCL 40 MEQ PO (20:39)
[2024-08-01 22:21] LABS: Lactic Acid 1.4 mmol/L (0.7-2.0)
[2024-08-01] MEDS: ZITHROMAX INFUSION 250 IV (22:51)
[2024-08-01] MEDS: STERILE WATER FOR INJECTION 10 ML IV (22:53)
[2024-08-01] MEDS: MUCINEX 600 MG PO (22:53)
[2024-08-01] MEDS: ROXICODONE 5 MG PO (22:53)
[2024-08-01] MEDS: ROCEPHIN 1000 MG IV (22:53)
[2024-08-02] VITALS (8 sets, daily range): BP systolic 105–127; BP diastolic 52–85; PULSE 96; O2SAT 98; BMI 32.1
--- NOTE | 2024-08-02 03:01 | PTCARENOTE ---
resumed care from previous rn. aaox3. vss. erythema to lft third toe. pt ambulated to br independently.
--- NOTE | 2024-08-02 03:29 | PTCARENOTE ---
resumed care from previous rn. aaox3. nsr vss. 4lnc. [place]. refused pure wic. pt changed and turned. will monitor.
[2024-08-02] MEDS: DUONEB 3 ML INH ×5 (07:27→23:33)
[2024-08-02 07:48] LABS: Hemoglobin 11.9 g/dL (12.0-16.0); Mean Corp Hgb Conc. 33.1 g/dL (33.0-37.0); Mean Corpuscular Hgb 30.1 pg (27.0-31.0); Mean Corpuscular Volume 91.1 fL (81.0-99.0); Mean Platelet Volume 9.8 fL (7.4-10.4); Platelet Count 422 10^3/uL (130-400); Red Blood Cell Count 3.95 10^6/uL (4.20-5.40); Red Cell Dist. Width 14.4 % (11.5-14.5); White Blood Cell Count 16.7 10^3/uL (4.8-10.8)
[2024-08-02] MEDS: SUDAFED 12 HOUR (EXTENDED RELEASE) 120 MG PO ×2 (08:13→19:18)
[2024-08-02] MEDS: WELLBUTRIN XL (24 hour extended release) 300 MG PO (08:15)
[2024-08-02] MEDS: MUCINEX 600 MG PO ×2 (08:15→19:16)
[2024-08-02] MEDS: ZOLOFT 100 MG PO (08:15)
[2024-08-02] MEDS: DESENEX/MITRAZOL/ZEASORB 1 APPLIC TOPICAL ×2 (08:15→21:33)
[2024-08-02] MEDS: CLARITIN 5 MG PO ×2 (08:15→19:16)
[2024-08-02] MEDS: HEPARIN 5000 UNITS SC ×2 (08:15→19:17)
[2024-08-02 08:31] LABS: Blood Urea Nitrogen 28 mg/dl (7-17); Calcium 8.9 mg/dl (8.4-10.2); Carbon Dioxide 29 mmol/L (22-30); Chloride 98 mmol/L (98-107); Estimated Creatinine Clearance 33 ml/min; Glucose 99 mg/dl (70-99); Potassium 3.8 mmol/L (3.5-5.1); Sodium 140 mmol/L (135-145)
[2024-08-02] MEDS: TYLENOL 650 MG PO (08:52)
[2024-08-02] MEDS: FLEXERIL 5 MG PO (08:52)
--- NOTE | 2024-08-02 10:22 | W.PN.HOSP.TC ---
Today's Communication/Plan
-
IV Abx
Resume Lasix
Resume Symbicort
IS and Acapella
Monitor weight
Assessment / Plan
Assessment / Plan
Physical exam:
General: Obese, seems in mild respiratory distress
HEENT: Normocephalic, Anicteric, Moist mucous membranes
Respiratory: very limited, not much Wheezes.
Cardiac: S1/S2.
GI: Soft, Non Tender, Non Distended,
Musculoskeletal: trace edema
Neuro: AO x 3, No Motor Deficits, Nonfocal/grossly intact
Psych: Calm
# Acute on chronic hypoxic respiratory failure likely from pneumonia
-Sepsis as evident by WBCs 18.4, lactic 2.1
Progressive sob
Multifactorial ( heart failure, advanced COPD, untreated JUAN ANTONIO, PNA )
Obstructive sleep apnea/CPAP intolerant.
c/w Lasix
Empiric AB
Check Pro-dandy, f/w cultures
Resume Symbicort 160mcg
Nebulized Duo Neb QID with prn DuoNeb q4hr
Continue Mucinex 600 twice daily
Incentive spirometry & Acapella
#Chronic heart failure preserved EF.
c/w Lasix,
Monitor weight
# Hypokalemia/[place] on CKD stage IIIb likely from fluid overload
# Multiple compression fractures in the lumbar and lower thoracic spine most likely secondary to osteoporosis and chronic steroids
-PT/OT consulted
-Flexeril continued
-Oxycodone continued
Total time spent to see the patient, examine the patient on the floor, review data and lab results, discuss treatment plan with patient, nursing staff around 55 minutes
Anticipated Discharge: > 48 hours
Subjective/Interval History
-
Date of Service: August 02, 2024
She has sob
denies chest pain
Objective Data
-
Labs:
Laboratory Results
08/02/24
07:23
WBC 16.7 H
Hgb 11.9 L
Hct 36.0 L
Plt Count 422 H
Sodium 140
Potassium 3.8
Chloride 98
Carbon Dioxide 29
BUN 28 H
Creatinine 1.8 H
Glucose 99
Calcium 8.9
Vital Signs:
Vital Signs
Temp Pulse Resp BP Pulse Ox
98.0 F 92 25 125/71 97
08/02/24 07:35 08/02/24 07:35 08/02/24 07:35 08/02/24 07:35 08/02/24 07:35
I&O
08/01/24 08/02/24 08/03/24
06:59 06:59 06:59
Intake Total 100 / 100
Output Total 200 / 200
Balance -100 / -100
[2024-08-02] MEDS: LASIX 40 MG PO (11:45)
[2024-08-02] MEDS: SOLU-MEDROL PF 40 MG IV (13:58)
--- NOTE | 2024-08-02 14:57 | CM ---
Reviewed chart, met with patient to obtain information for assessment. Patient's daughter was at bedside. Patient stated that she lives with her daughter in a two story home with a first floor set up with two steps to enter. Patient uses a cane to
ambulate. She is able to dress herself as well as bathe, and perform most of her ADLs. Patient's daughter does all of the radar scientist, cook, clean and do laundry. Patient's daughter drives [employer] to her appointments and does all the shopping.
Patient has o2, portable and a concentrator at home and also has a nebulizer and a cane. Patient stated that she is normally on 4 liters.
Patient has had [facility] in the past. She is not current.
She has been to [facility] for SNF and if she needed rehab she would select for return there. Patient's daughter who is at bedside confirmed that she has been able to accommodate the scope of patient's care.
Plan: Case management will continue to follow and assist with discharge planning. Home vrs VN if needed. Patient also agreeable to SNF if indicated.
[2024-08-02] MEDS: SYMBICORT 160/4.5 MCG INHALER 2 PUFF INH (20:12)
[2024-08-02] MEDS: ZITHROMAX INFUSION 250 IV (23:09)
[2024-08-02] MEDS: ROCEPHIN 1000 MG IV (23:10)
[2024-08-02] MEDS: STERILE WATER FOR INJECTION 10 ML IV (23:10)
[2024-08-03] VITALS (7 sets, daily range): BP systolic 117–129; BP diastolic 59–75; PULSE 107; O2SAT 90; BMI 32.1
[2024-08-03] MEDS: SOLU-MEDROL PF 40 MG IV (02:14)
[2024-08-03 06:40] LABS: Hematocrit 34.4 % (37.0-47.0); Hemoglobin 11.2 g/dL (12.0-16.0); Mean Corp Hgb Conc. 32.6 g/dL (33.0-37.0); Mean Corpuscular Hgb 28.9 pg (27.0-31.0); Mean Corpuscular Volume 88.9 fL (81.0-99.0); Mean Platelet Volume 9.9 fL (7.4-10.4); Platelet Count 448 10^3/uL (130-400); Red Blood Cell Count 3.87 10^6/uL (4.20-5.40); Red Cell Dist. Width 14.6 % (11.5-14.5)
[2024-08-03 07:45] LABS: Blood Urea Nitrogen 31 mg/dl (7-17); Calcium 8.9 mg/dl (8.4-10.2); Carbon Dioxide 27 mmol/L (22-30); Chloride 97 mmol/L (98-107); Estimated Creatinine Clearance 40 ml/min; Glucose 129 mg/dl (70-99); Magnesium 1.8 mg/dl (1.6-2.3); Potassium 3.6 mmol/L (3.5-5.1); Sodium 138 mmol/L (135-145); eGFR 36.34
[2024-08-03] MEDS: DUONEB 3 ML INH ×5 (08:13→23:40)
[2024-08-03] MEDS: SYMBICORT 160/4.5 MCG INHALER 2 PUFF INH ×2 (08:13→19:27)
[2024-08-03] MEDS: LASIX 40 MG PO (08:49)
[2024-08-03] MEDS: DESENEX/MITRAZOL/ZEASORB 1 APPLIC TOPICAL (08:49)
[2024-08-03] MEDS: CLARITIN 5 MG PO ×2 (08:49→20:05)
[2024-08-03] MEDS: HEPARIN 5000 UNITS SC ×2 (08:49→20:06)
[2024-08-03] MEDS: WELLBUTRIN XL (24 hour extended release) 300 MG PO (08:50)
[2024-08-03] MEDS: MUCINEX 600 MG PO ×2 (08:50→20:05)
[2024-08-03] MEDS: ZOLOFT 100 MG PO (08:50)
[2024-08-03] MEDS: SUDAFED 12 HOUR (EXTENDED RELEASE) 120 MG PO ×2 (08:50→20:05)
--- NOTE | 2024-08-03 10:32 | W.PN.HOSP.TC ---
Today's Communication/Plan
-
IV steroid
Oral Lasix
IV Abx
Repeat chest x ray in am
Assessment / Plan
Assessment / Plan
Physical exam:
General: Obese, seems in mild respiratory distress
HEENT: Normocephalic, Anicteric, Moist mucous membranes
Respiratory: very limited, not much Wheezes.
Cardiac: S1/S2.
GI: Soft, Non Tender, Non Distended,
Musculoskeletal: trace edema
Neuro: AO x 3, No Motor Deficits, Nonfocal/grossly intact
Psych: Calm
# Acute on chronic hypoxic respiratory failure likely from pneumonia and exacerbation
-Sepsis as evident by WBCs 18.4, lactic 2.1
Progressive sob history. Multifactorial ( heart failure, advanced COPD, untreated JUAN ANTONIO, PNA ). Obstructive sleep apnea/CPAP intolerant.
She is feeling better
c/w oral Lasix. IV AB. IV Steroid
Resume Symbicort 160mcg
Nebulized Duo Neb QID with PRN DuoNeb q4hr
Continue Mucinex 600 twice daily
Incentive spirometry & Acapella
Repeat chest x ray in am
#Acute on Chronic heart failure preserved EF.
c/w Lasix,
Monitor weight , lost some weight
# Hypokalemia/[place] on CKD stage IIIb likely from fluid overload
# Multiple compression fractures in the lumbar and lower thoracic spine most likely secondary to osteoporosis and chronic steroids
-PT/OT consulted
-Flexeril continued
-Oxycodone continued
Total time spent to see the patient, examine the patient on the floor, review data and lab results, discuss treatment plan with patient, nursing staff around 55 minutes
Anticipated Discharge: 24 - 48 hours
Subjective/Interval History
-
Date of Service: August 03, 2024
No sob
No chest pain
She feels slightly better today
Objective Data
-
Labs:
Laboratory Results
08/03/24
06:08
WBC 16.0 H
Hgb 11.2 L
Hct 34.4 L
Plt Count 448 H
Sodium 138
Potassium 3.6
Chloride 97 L
Carbon Dioxide 27
BUN 31 H
Creatinine 1.5 H
Glucose 129 H
Calcium 8.9
Vital Signs:
Vital Signs
Temp Pulse Resp BP Pulse Ox
97.0 F 90 22 126/65 94
08/03/24 07:43 08/03/24 08:49 08/03/24 08:16 08/03/24 08:49 08/03/24 08:16
I&O
08/02/24 08/03/24 08/04/24
06:59 06:59 06:59
Intake Total 100 / 100 180 / 180
Output Total 200 / 200 550 / 550
Balance -100 / -100 -370 / -370
[2024-08-03] MEDS: ROXICODONE 5 MG PO (13:19)
[2024-08-03] MEDS: TYLENOL 650 MG PO (13:19)
--- NOTE | 2024-08-03 14:13 | PN.CDI ---
Addendum entered and electronically signed by Georgia Michael MD 08/03/24 14:41:
stage 1 pressure injury bilateral heels, POA
Original Note:
CDI
- -
CDI:
Physician Documentation Request
Admit Date: 08/01/24 20:23
Dear Doctor Fernanda,
Please review the following and provide your response in the progress notes.
Clinical Indicators:
Selected Entries
08/01/24
22:23
Pressure injury stage [Bilateral Heel] Stage 1
Physician documentation of the type and location of wounds is required for compliant documentation. Based on the above clinical findings and your assessment, please provide the following in your progress note:
Yes, stage 1 pressure injury bilateral heels, POA
No, stage 1 pressure injury bilateral heels
Other(please specify)
1. Location of the ulcer/wound, including laterality.
2. Type (etiology) of ulcer/wound:
- Diabetic ulcer
- Arterial (ischemic) ulcer
- Traumatic wound
- Venous stasis ulcer
- Pressure (decubitus) ulcer
3. If a pressure ulcer, please also include the stage* of the ulcer:
- Stage 1 - Skin intact, non-blanchable redness
- Stage 2 - Partial thickness loss of dermis, includes intact or open blister
- Stage 3 - Full thickness tissue not including bone, tendon or muscle
- Stage 4 - Full thickness tissue loss, including exposed bone, tendon or muscle
Use of terms such as suspected, likely, concern for, or probable (associated with a specific diagnosis that is being evaluated, monitored, or treated as if it exists) are acceptable and can be coded in the inpatient setting, when documented at the
time of discharge.
Thank you,
Lucy Matson RN BSN CCDS
CDI Specialist
please contact via tiger text
Please use your independent medical judgment in providing your response.
*Source: National Pressure Ulcer Advisory Panel (NPUAP)
[2024-08-03] MEDS: DESENEX/MITRAZOL/ZEASORB TOPICAL (21:01)
[2024-08-03] MEDS: STERILE WATER FOR INJECTION 10 ML IV (22:19)
[2024-08-03] MEDS: ZITHROMAX 500 MG PO (22:19)
[2024-08-03] MEDS: ROCEPHIN 1000 MG IV (22:19)
[2024-08-04 03:16] VITALS: BP 126/59
[2024-08-04 06:00] VITALS: BMI 32.2
[2024-08-04 07:04] LABS: Hematocrit 35.2 % (37.0-47.0); Hemoglobin 11.2 g/dL (12.0-16.0); Mean Corp Hgb Conc. 31.8 g/dL (33.0-37.0); Mean Corpuscular Hgb 29.2 pg (27.0-31.0); Mean Corpuscular Volume 91.9 fL (81.0-99.0); Platelet Count 472 10^3/uL (130-400); Red Blood Cell Count 3.83 10^6/uL (4.20-5.40); Red Cell Dist. Width 14.5 % (11.5-14.5); White Blood Cell Count 21.4 10^3/uL (4.8-10.8)
[2024-08-04 07:24] LABS: Blood Urea Nitrogen 43 mg/dl (7-17); Calcium 9.2 mg/dl (8.4-10.2); Carbon Dioxide 33 mmol/L (22-30); Chloride 96 mmol/L (98-107); Estimated Creatinine Clearance 33 ml/min; Glucose 102 mg/dl (70-99); Potassium 3.6 mmol/L (3.5-5.1); Sodium 141 mmol/L (135-145)
[2024-08-04] MEDS: DUONEB 3 ML INH ×4 (07:24→20:21)
[2024-08-04] MEDS: SYMBICORT 160/4.5 MCG INHALER 2 PUFF INH ×2 (07:24→20:21)
[2024-08-04 07:31] VITALS: BP 129/60
[2024-08-04] MEDS: CLARITIN 5 MG PO ×2 (09:32→20:45)
[2024-08-04] MEDS: HEPARIN 5000 UNITS SC ×2 (09:32→20:44)
[2024-08-04] MEDS: MUCINEX 600 MG PO (09:32)
[2024-08-04] MEDS: LASIX 40 MG PO (09:32)
[2024-08-04] MEDS: SUDAFED 12 HOUR (EXTENDED RELEASE) 120 MG PO ×2 (09:33→20:44)
[2024-08-04] MEDS: SOLU-MEDROL PF 40 MG IV ×2 (09:33→20:46)
[2024-08-04] MEDS: WELLBUTRIN XL (24 hour extended release) 300 MG PO (09:33)
[2024-08-04] MEDS: ZOLOFT 100 MG PO (09:33)
[2024-08-04] MEDS: DESENEX/MITRAZOL/ZEASORB 1 APPLIC TOPICAL ×2 (09:34→20:59)
[2024-08-04] MEDS: ROXICODONE 5 MG PO (09:49)
[2024-08-04] MEDS: TYLENOL 650 MG PO (09:50)
--- NOTE | 2024-08-04 10:03 | W.PN.HOSP.TC ---
Addendum entered and electronically signed by Georgia Michael MD 08/04/24 13:28:
Addendum
I saw the patient again today, she continues to have sob and I do not see improvement on my exam despite using Nebs/steroid/Lasix/Abx
-Will do ABG
-Will consult pulmonary doctor
- Pt has history of intolerance to Bipap/ Cpap, will try to use benzodiazepine if needed. I d/w daughter Alma Delia over the phone, pt is DNR/DNI and will recommend comfort care if no improvement.
End
Original Note:
Today's Communication/Plan
-
likely dc in am
Assessment / Plan
Assessment / Plan
Physical exam:
General: Obese, seems in mild respiratory distress
HEENT: Normocephalic, Anicteric, Moist mucous membranes
Respiratory: very limited, not much Wheezes.
Cardiac: S1/S2.
GI: Soft, Non Tender, Non Distended,
Musculoskeletal: trace edema
Neuro: AO x 3, No Motor Deficits, Nonfocal/grossly intact
Psych: Calm
# Acute on chronic hypoxic respiratory failure likely from pneumonia and exacerbation
-Sepsis as evident by WBCs 18.4, lactic 2.1
Progressive sob history. Multifactorial ( heart failure, advanced COPD, untreated JUAN ANTONIO, PNA ). Obstructive sleep apnea/CPAP intolerant.
She is feeling better
c/w oral Lasix. IV AB. IV Steroid
Resume Symbicort 160mcg
Nebulized Duo Neb QID with PRN DuoNeb q4hr
Continue Mucinex 600 twice daily
Incentive spirometry & Acapella
Repeat chest x ray in am
#Acute on Chronic heart failure preserved EF.
c/w Lasix,
Monitor weight , lost some weight
# Hypokalemia/[place] on CKD stage IIIb likely from fluid overload
# Multiple compression fractures in the lumbar and lower thoracic spine most likely secondary to osteoporosis and chronic steroids
-PT/OT consulted
-Flexeril continued
-Oxycodone continued
Total time spent to see the patient, examine the patient on the floor, review data and lab results, discuss treatment plan with patient, nursing staff around 55 minutes
Anticipated Discharge: Within 24 hours
Subjective/Interval History
-
Date of Service: August 04, 2024
No worsening sob
Objective Data
-
Labs:
Laboratory Results
08/04/24
06:05
WBC 21.4 H
Hgb 11.2 L
Hct 35.2 L
Plt Count 472 H
Sodium 141
Potassium 3.6
Chloride 96 L
Carbon Dioxide 33 H
BUN 43 H
Creatinine 1.8 H
Glucose 102 H
Calcium 9.2
Vital Signs:
Vital Signs
Temp Pulse Resp BP Pulse Ox
97.6 F 98 18 129/60 92
08/04/24 07:31 08/04/24 07:31 08/04/24 07:31 08/04/24 07:31 08/04/24 07:31
I&O
08/03/24 08/04/24 08/05/24
06:59 06:59 06:59
Intake Total 180 / 180 420 / 420
Output Total 550 / 550 240 / 240
Balance -370 / -370 180 / 180
[2024-08-04 11:20] VITALS: BP 111/59
--- NOTE | 2024-08-04 13:21 | CON.PUL ---
Consultation
Consultation Request
Date/Time Consultation Requested: 08/04/2024-1:20 PM
Date/Time Consultation Performed: 08/04/2024-1:30 PM
Requesting Provider: Hospitalist-Dr. Michael
Performing Provider: Dr. Diaz
Reason for Consultation: Shortness of breath
Medical History
-
Chief Complaint: Shortness of breath
History of Present Illness:
74-year-old obese female with a history of COPD, CHF on chronic oxygen at home presented with mental status changes, back and hip pain, diarrhea and treated with antibiotics, COPD exacerbation and diuretics but continues to have significant
shortness of breath and hypoxemia-pulmonary was consulted for ongoing hypoxemia and shortness of breath 08/04/2024. Patient states that she has significant shortness of breath, chest congestion, productive cough of yellow sputum, no chest pain,
tightness, hemoptysis, abdominal pain or worsening lower extremity swelling. She does have significant wheezing.
Past Medical History
Past Medical History: None (COPD. JUAN ANTONIO. CHF. Renal calculi. Hypertension. Anxiety. Depression. Gallstones. Carpal tunnel. Shoulder surgery. Knee replacement.)
Social History
Tobacco: Former Smoker ([id number])
Alcohol: None
Drug: None
Living: With Family
Occupational Exposures: No known asbestos exposure
Environmental Exposures: No known tuberculosis exposure
Family History
Family History: Reviewed & Not Pertinent and Other (Father-diabetes. Mother CVA and CAD)
Allergies / Home Medications
Allergies
Allergy/AdvReac Type Severity Reaction Status Date / Time
ampicillin Allergy Hives Verified 08/01/24 15:36
coconut Allergy Hives Verified 08/01/24 15:36
mustard Allergy Hives Verified 08/01/24 15:36
Home Medications
�Medication �Instructions �Recorded �Confirmed �Last Taken �Type
albuterol sulfate 90 mcg/actuation 2 puff inhalation R Q4HPRN PRN 12/29/22 08/01/24 10/28/23 History
aerosol inhaler sob/wheezing
loratadine 5 mg-pseudoephedrine ER 1 tab PO BID Allergies 12/29/22 08/01/24 06/21/24 History
120 mg tablet,extended
release,12hr (Claritin-D 12 Hour)
bupropion HCl 300 mg 24 hr tablet, 300 mg PO DAILY Depression 07/19/23 08/01/24 06/21/24 History
extended release
budesonide 160 mcg-glycopyr 9 2 inh inhalation R BID 01/18/24 08/01/24 06/21/24 History
mcg-formot 4.8 mcg/actuation HFA Lung/Breathing Issues
inhaler ([employer])
furosemide 40 mg tablet 40 mg PO DAILY Fluid 02/20/24 08/01/24 06/21/24 History
Retention/Swelling
albuterol sulfate 2.5 mg/3 mL 2.5 mg inhalation R QID 04/17/24 08/01/24 06/21/24 History
(0.083 %) solution for nebulization Lung/Breathing Issues
acetaminophen 500 mg tablet 1,000 mg PO BID Pain 06/22/24 08/01/24 06/21/24 History
(Tylenol Extra Strength)
melatonin 5 mg tablet 10 mg PO HSPRN PRN sleep 06/22/24 08/01/24 Unknown History
ondansetron 4 mg disintegrating 4 mg PO BIDPRN PRN nausea/vomiting 06/22/24 08/01/24 Unknown History
tablet
cyclobenzaprine 5 mg tablet 5 mg PO TIDPRN PRN muscle spasms 08/01/24 08/01/24 Unknown History
guaifenesin 600 mg tablet, 600 mg PO Q12H Lung/breathing 08/01/24 08/01/24 Unknown History
extended release 12 hr issues
oxycodone 5 mg tablet 5 mg PO Q6HPRN PRN severe pain 08/01/24 08/01/24 Unknown History
sertraline 100 mg tablet 100 mg PO DAILY Depression 08/01/24 08/01/24 Unknown History
Review of Systems
-
Unable to Obtain full review of systems at this time due to: Other (Per HPI)
Vitals / Labs / Diagnostic Testing
Vital Signs
Temp Pulse Resp BP Pulse Ox
98.4 F 98 22 111/59 91
08/04/24 11:20 08/04/24 11:28 08/04/24 11:28 08/04/24 11:20 08/04/24 11:20
Lab Data
08/04/24 06:05
08/04/24 06:05
Laboratory Results
08/04/24
12:38
pH Cancelled
pCO2 Cancelled
pO2 Cancelled
HCO3 Cancelled
O2 Delivery Level Cancelled
Microbiology
08/01/24 16:34 Urine Urine Culture - Final
Escherichia coli
Klebsiella pneumoniae
08/01/24 22:04 Blood/Venous Blood Culture - Preliminary
No Growth in 48 hours- Final report to follow
08/01/24 20:48 Blood/Venous Blood Culture - Preliminary
No Growth in 48 hours- Final report to follow
08/01/24 23:00 Urine Legionella Urinary Antigen - Final
Negative for Legionella pneumophila Serogroup 1 antigen.
A negative result does not rule out the possiblity of
Legionella infection due to other serogroups or species of
Legionella. Clinical correlation is recommended.
Diagnostic Testing:
Physical Exam
-
Exam:
Well-nourished and well-developed in no apparent distress
HEENT-atraumatic, normocephalic
Neck-supple, no JVD, no bruit
Heart-regular rate and rhythm-no murmurs, rubs or gallops
Chest with diminished breath sounds, prolonged expiratory time, basilar crackles and few wheezes
Abdomen-soft, nontender, nondistended, no hepatosplenomegaly
Extremities-no cyanosis, clubbing, edema and good peripheral pulses
Integument-intact, no rashes, lesions or ecchymosis
Neurology-alert and oriented, nonfocal motor and sensory exam
Assessment
-
74-year-old obese female with a history of COPD, CHF on chronic oxygen at home presented with mental status changes, back and hip pain, diarrhea and treated with antibiotics, COPD exacerbation and diuretics but continues to have significant
shortness of breath and hypoxemia-pulmonary was consulted for ongoing hypoxemia and shortness of breath 08/04/2024.
COPD with acute exacerbation
CHFpEF exacerbation
Obesity (BMI: 37)
Leukocytosis
[id number]-15.2
V[place]
Mild hyperglycemia
DNR
Conditions present prior to admission:
Recent hospitalization 01/24/2024-COPD exacerbation
Recent hospitalization 03/19/2024-acute on top of chronic hypoxic respiratory failure CHF and COPD
Recent hospitalization 05/07-CHF, acute on top of chronic back pain, UTI, [place] and COPD
Recent hospitalization-06/22/2024-back pain, chronic hypoxemic respiratory failure, chronic COPD and chronic CHF
Repetitive hospitalizations for COPD exacerbation-December, April, July, August, September 2023
Syncope admission August 2020-found minimally responsive, septic shock, left lower extremity fasciitis requiring mechanical ventilation
s/p extensive surgical debridement and wound VAC for 10 months
COPD oxygen dependent 2 L-followed by Dr. Roque-maintained on Lina Sexton-3
Active smoker.
Pulmonary nodule-largest 6.7 mm right upper lobe-CT 06/22/2024
Covid illness September 2023
Obstructive sleep apnea/CPAP intolerant.
Chronic heart failure preserved EF.
Moderate mitral regurgitation
Mild aortic stenosis
Moderate aortic regurgitation
Chronic kidney disease stage III.
Anxiety/depression.
Obesity.
Obstructive sleep apnea-previously noncompliant with CPAP-was willing to have repeat PSG and titration-has yet to obtain study
Sciatica.
Prior lumbar fracture.
Left lower extremity fasciitis.
Hyponatremia.
Renal calculi.
Cataract. Carpal tunnel release. Cholecystectomy 1975. Shoulder surgery 1992.
Plan
Respiratory decompensation likely a combination of CHF with preserved EF/valvular disease and advanced COPD-radiographs, echocardiograms, and pulmonary functions over the last several years are summarized below
Supplemental oxygen as needed
BiPAP if needed
Noninvasive ventilation if needed
High flow oxygen if appropriate
Patient is a DNR-not to be intubated
Albuterol nebulizers 4 times daily
Pulmicort nebulizers
Mucolytic's-Mucinex 600 twice daily-will increase to 1200 mg twice daily
Solu-Medrol 40 mg IV daily-will increase to twice daily
Incentive spirometry will be provided
Acapella encouraged and mucus clearing devices
Consider vest if difficulties mobilizing secretions
Consider chest physiotherapy if difficulties mobilizing secretions
Cultures reviewed
Legionella urine antigen negative
Blood cultures negative
Urine culture E. coli and Klebsiella
Empiric antibiotics continue-on Rocephin and azithromycin
Monitor leukocytosis and temperature curve,
proBNP 3250
Diuresis as tolerated.
Monitor renal function, weight, lower extremity edema and electrolytes
Monitor blood sugars
Insulin supplementation as needed
Smoking cessation counseling ongoing
DVT prophylaxis-on subcu heparin
GI prophylaxis recommended if on steroids for prolonged period
Early nutrition
Early mobilization
Reviewed with nursing, respiratory therapy, and primary team.
Last seen by Dr. Wendy Roque 03/22/2024 and subsequently Lisa Riley NP 04/05/2024-will suggest follow-up in the next couple weeks postdischarge
Outpatient pulmonary hserlz-tg-ycrvvy locally or down in [place]-has seen Dr. Roque locally
Diagnostic data:
Chest x-ray 06/25/22: mild cardiomeg suggestive of elevated pulm venous pressures, no acute evidence of PNA, suspect mild symmetric subpleural inflammatory interstitial pneumonitis.�������
Chest x-ray 05/04/22: cardiomegaly with prominent vascularity suggesting CHF�������
Chest x-ray 01/02/23- No focal interstitial or airspace opacity.�����
Chest x-ray 10/28/2023-NAD
Chest x-ray 01/18/2024-pulmonary vascularity at top normal
Chest x-ray 01/24/2024- Chronic obstructive pulmonary disease; No superimposed acute abnormalities
Chest x-ray 08/01/2024-cephalization with borderline pulmonary edema
CT abdomen and pelvis 01/14/2024-mild atelectasis at lung bases, small bullae left lung base without pneumothorax, no evidence for intestinal obstruction
CT chest 06/22/2024-compression fractures T8, T10, T11, centrilobular emphysema, pulmonary nodules the larger measuring 6.7 mm right upper lobe
US LLE 11/09/19: no evidence of DVT.
Echocardiogram 01/03/23- Low-normal LV function, EF 50%. no significant valvular disease.
Echocardiogram 08/18/2023-EF 50-55%, mild aortic regurgitation
Echocardiogram 04/18/2024-EF 55-60%, moderate mitral regurgitation, mild aortic stenosis-ZACHARIAH 1.5 cm, moderate aortic regurgitation
[place] 06/01/22: FVC 1.63/77%, FEV1 0.98/62%, ratio 60%, no significant BD response. Moderate obstruction and suggestive of mild restrictive pattern.
Spirometry 03/22/24: FEV1 1.17L 52%, FVC 2.23L 75%, ratio 52, post FEV1 1.2L 54%, no BD response (moderate obstruction, stable)��������
Spirometry 01/26/23- FVC 2.03 or 66%, FEV1 1.27 or 55%, Ratio 62%. (moderate obstruction)��������
PFTs 07/02/22: FEV1 1.25L 54%, FVC 2.09L 68%, ratio 60. Post FEV1 1.32L 57%. No significant bronchodilator response. TLC 4.34L 84%, DLCO 50% (moderate obstruction, normal volumes, moderate diffusion impairment)
Data Reviewed
-
PFT: Report reviewed by me
EKG: Report reviewed by me
Radiology: Report reviewed by me
CT Scan: Report reviewed by me
Medical Tests (Nuc Med, Echo etc): Report reviewed by me
Labs: Labs reviewed by me
Old Records: Reviewed
Total Time Spent with Patient (in minutes): 55
[2024-08-04 14:14] LABS: HCO3 31.2 mmol/L (21-28); O2 Saturation % 97.2 % (94-98); PCO2 47 mmHg (32-35); PO2 73 mmHg (83-108); pH 7.43 (7.35-7.45)
[2024-08-04 14:19] LABS: O2 Therapy NC 4L
[2024-08-04 15:33] VITALS: BP 126/64
[2024-08-04 19:37] VITALS: BP 133/80
[2024-08-04] MEDS: MUCINEX 1200 MG PO (20:46)
[2024-08-04] MEDS: STERILE WATER FOR INJECTION 10 ML IV (21:57)
[2024-08-04] MEDS: ROCEPHIN 1000 MG IV (21:57)
[2024-08-04] MEDS: ZITHROMAX 500 MG PO (21:57)
[2024-08-04 23:14] VITALS: BP 101/72
[2024-08-05 03:12] VITALS: BP 142/77
[2024-08-05 05:27] VITALS: BMI 30.7
[2024-08-05 06:00] VITALS: BMI 30.7
[2024-08-05 06:54] LABS: Hematocrit 36.8 % (37.0-47.0); Hemoglobin 11.7 g/dL (12.0-16.0); Mean Corp Hgb Conc. 31.8 g/dL (33.0-37.0); Mean Corpuscular Hgb 29.3 pg (27.0-31.0); Mean Corpuscular Volume 92.2 fL (81.0-99.0); Platelet Count 425 10^3/uL (130-400); Red Blood Cell Count 3.99 10^6/uL (4.20-5.40); Red Cell Dist. Width 14.3 % (11.5-14.5); White Blood Cell Count 15.9 10^3/uL (4.8-10.8)
--- NOTE | 2024-08-05 07:17 | W.PN.PUL.V3 ---
Today's Communication / Plan
-
No change in steroids
Wean oxygen
Mucolytic's
Mucus clearing devices
Consider Biologics as an outpatient
Assessment
-
74-year-old obese female with a history of COPD, CHF on chronic oxygen at home presented with mental status changes, back and hip pain, diarrhea and treated with antibiotics, COPD exacerbation and diuretics but continues to have significant
shortness of breath and hypoxemia-pulmonary was consulted for ongoing hypoxemia and shortness of breath 08/04/2024.
COPD/asthma overlap with acute exacerbation
CHFpEF exacerbation
Obesity (BMI: 37)
Leukocytosis
Vypids-giwdhpfkzi-90.2
[place]
Mild hyperglycemia
DNR
Conditions present prior to admission:
Recent hospitalization 01/24/2024-COPD exacerbation
Recent hospitalization 03/19/2024-acute on top of chronic hypoxic respiratory failure CHF and COPD
Recent hospitalization 05/07-CHF, acute on top of chronic back pain, UTI, [place] and COPD
Recent hospitalization-06/22/2024-back pain, chronic hypoxemic respiratory failure, chronic COPD and chronic CHF
Repetitive hospitalizations for COPD exacerbation-December, April, July, August, September 2023
Syncope admission August 2020-found minimally responsive, septic shock, left lower extremity fasciitis requiring mechanical ventilation
s/p extensive surgical debridement and wound VAC for 10 months
COPD/asthma overlap oxygen dependent 2 L-followed by Dr. Roque-maintained on Lina Sexton
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
Active smoker.
Pulmonary nodule-largest 6.7 mm right upper lobe-CT 06/22/2024
Covid illness September 2023
Obstructive sleep apnea/CPAP intolerant.
Chronic heart failure preserved EF.
Moderate mitral regurgitation
Mild aortic stenosis
Moderate aortic regurgitation
Chronic kidney disease stage III.
Anxiety/depression.
Obesity.
Obstructive sleep apnea-previously noncompliant with CPAP-was willing to have repeat PSG and titration-has yet to obtain study
Sciatica.
Prior lumbar fracture.
Left lower extremity fasciitis.
Hyponatremia.
Renal calculi.
Cataract. Carpal tunnel release. Cholecystectomy 1975. Shoulder surgery 1992.
Plan
Respiratory decompensation likely a combination of CHF with preserved EF/valvular disease and advanced COPD-radiographs, echocardiograms, and pulmonary functions over the last several years are summarized below
Supplemental oxygen as needed
BiPAP if needed
Noninvasive ventilation if needed
High flow oxygen if appropriate
Patient is a DNR-not to be intubated
Albuterol nebulizers 4 times daily
Pulmicort nebulizers
Mucolytic's-Mucinex 600 twice daily--increased to 1200 mg twice daily
Solu-Medrol 40 mg IV daily--had increased to twice daily
Incentive spirometry will be provided
Acapella encouraged and mucus clearing devices
Consider vest if difficulties mobilizing secretions
Consider chest physiotherapy if difficulties mobilizing secretions
Significant eosinophilia in the past-consider adding Biologics with recurrent prednisone requiring exacerbations
Cultures reviewed
Legionella urine antigen negative
Blood cultures negative
Urine culture E. coli and Klebsiella
Empiric antibiotics continue-on Rocephin and azithromycin
Monitor leukocytosis and temperature curve,
proBNP 3250
Diuresis as tolerated.
Monitor renal function, weight, lower extremity edema and electrolytes
Monitor blood sugars
Insulin supplementation as needed
Smoking cessation counseling ongoing
DVT prophylaxis-on subcu heparin
GI prophylaxis recommended if on steroids for prolonged period
Early nutrition
Early mobilization
Reviewed with nursing, respiratory therapy, and primary team.
Last seen by Dr. Wendy Roque 03/22/2024 and subsequently Lisa Riley NP 04/05/2024-will suggest follow-up in the next couple weeks postdischarge-consider adding Biologics with recurrent prednisone requiring exacerbations/asthma component and
significant eosinophilia in the past
Outpatient pulmonary [id number] locally or down in [place]-has seen Dr. Roque locally
Diagnostic data:
Chest x-ray 06/25/22: mild cardiomeg suggestive of elevated pulm venous pressures, no acute evidence of PNA, suspect mild symmetric subpleural inflammatory interstitial pneumonitis.�������
Chest x-ray 05/04/22: cardiomegaly with prominent vascularity suggesting CHF�������
Chest x-ray 01/02/23- No focal interstitial or airspace opacity.�����
Chest x-ray 10/28/2023-NAD
Chest x-ray 01/18/2024-pulmonary vascularity at top normal
Chest x-ray 01/24/2024- Chronic obstructive pulmonary disease; No superimposed acute abnormalities
Chest x-ray 08/01/2024-cephalization with borderline pulmonary edema
CT abdomen and pelvis 01/14/2024-mild atelectasis at lung bases, small bullae left lung base without pneumothorax, no evidence for intestinal obstruction
CT chest 06/22/2024-compression fractures T8, T10, T11, centrilobular emphysema, pulmonary nodules the larger measuring 6.7 mm right upper lobe
US LLE 11/09/19: no evidence of DVT.
Echocardiogram 01/03/23- Low-normal LV function, EF 50%. no significant valvular disease.
Echocardiogram 08/18/2023-EF 50-55%, mild aortic regurgitation
Echocardiogram 04/18/2024-EF 55-60%, moderate mitral regurgitation, mild aortic stenosis-ZACHARIAH 1.5 cm, moderate aortic regurgitation
[place] 06/01/22: FVC 1.63/77%, FEV1 0.98/62%, ratio 60%, no significant BD response. Moderate obstruction and suggestive of mild restrictive pattern.
Spirometry 03/22/24: FEV1 1.17L 52%, FVC 2.23L 75%, ratio 52, post FEV1 1.2L 54%, no BD response (moderate obstruction, stable)��������
Spirometry 01/26/23- FVC 2.03 or 66%, FEV1 1.27 or 55%, Ratio 62%. (moderate obstruction)��������
PFTs 07/02/22: FEV1 1.25L 54%, FVC 2.09L 68%, ratio 60. Post FEV1 1.32L 57%. No significant bronchodilator response. TLC 4.34L 84%, DLCO 50% (moderate obstruction, normal volumes, moderate diffusion impairment)
Subjective Data
-
Date of Service:
Date of Service: August 05, 2024
Chief Complaint: Pulmonary Follow Up and Dyspnea Follow Up
Subjective:
Still complaining of significant shortness of breath with exertion, wheezing, mild chest congestion, nonproductive cough, no chest pain or abdominal pain
Review of Systems
General: Other (Per HPI)
Objective Data
Data Reviewed
Vital Signs / I&O:
Vital Signs
Temp Pulse Resp BP Pulse Ox
98.1 F 93 18 142/77 90
08/05/24 03:12 08/05/24 03:12 08/05/24 03:12 08/05/24 03:12 08/05/24 03:12
Intake and Output
08/04/24 08/05/24 08/06/24
06:59 06:59 06:59
Intake Total 420 / 420 780 / 780
Output Total 240 / 240
Balance 180 / 180 780 / 780
SaO2: 90
Nasal Cannula flow liters per minute: 4
Physical Exam
General: Respiratory Distress (n) and Comfortable
HEENT: Normocephalic, Anicteric and Moist Mucous Membranes
Cardiovascular: Regular Rhythm
Respiratory: Clear (Decreased breath sounds and prolonged expiratory time), Wheeze ( expiratory), Crackles (Rare basilar), Rhonchi (n), Non-Labored Respirations, Accessory Resp Muscle Use (n) and Stridor (n)
GI: Soft, Non Distended and Non Tender
Neurology: Awake, Alert and No Motor Deficits
Skin: Warm, Good Color, Cyanosis (n), Jaundice (n) and Rash (n)
Labs/Micro/Reports
Lab Data
08/05/24 05:54
Laboratory Results
08/04/24 08/04/24
12:38 14:06
pH Cancelled 7.43
pCO2 Cancelled 47 H
pO2 Cancelled 73 L
HCO3 Cancelled 31.2 H
O2 Delivery Level Cancelled Nc 4l
Microbiology
08/01/24 22:04 Blood/Venous Blood Culture - Preliminary
No Growth in 72 hours- Final report to follow
08/01/24 20:48 Blood/Venous Blood Culture - Preliminary
No Growth in 72 hours- Final report to follow
08/01/24 16:34 Urine Urine Culture - Final
Escherichia coli
Klebsiella pneumoniae
08/01/24 23:00 Urine Legionella Urinary Antigen - Final
Negative for Legionella pneumophila Serogroup 1 antigen.
A negative result does not rule out the possiblity of
Legionella infection due to other serogroups or species of
Legionella. Clinical correlation is recommended.
[2024-08-05 07:25] LABS: Blood Urea Nitrogen 44 mg/dl (7-17); Calcium 9.3 mg/dl (8.4-10.2); Carbon Dioxide 33 mmol/L (22-30); Chloride 97 mmol/L (98-107); Estimated Creatinine Clearance 39 ml/min; Glucose 151 mg/dl (70-99); Potassium 3.9 mmol/L (3.5-5.1); Sodium 141 mmol/L (135-145); eGFR 36.34
[2024-08-05] MEDS: SYMBICORT 160/4.5 MCG INHALER 2 PUFF INH ×2 (07:26→19:40)
[2024-08-05] MEDS: DUONEB 3 ML INH ×4 (07:26→19:40)
[2024-08-05 07:30] VITALS: BP 129/72
[2024-08-05] MEDS: MUCINEX 1200 MG PO ×2 (08:14→20:22)
[2024-08-05] MEDS: CLARITIN 5 MG PO ×2 (08:14→20:21)
[2024-08-05] MEDS: SUDAFED 12 HOUR (EXTENDED RELEASE) 120 MG PO ×2 (08:15→20:22)
[2024-08-05] MEDS: SOLU-MEDROL PF 40 MG IV ×2 (08:15→20:21)
[2024-08-05] MEDS: HEPARIN 5000 UNITS SC ×2 (08:15→20:20)
[2024-08-05] MEDS: WELLBUTRIN XL (24 hour extended release) 300 MG PO (08:15)
[2024-08-05] MEDS: ZOLOFT 100 MG PO (08:15)
[2024-08-05] MEDS: LASIX 40 MG PO (08:15)
[2024-08-05] MEDS: DESENEX/MITRAZOL/ZEASORB 1 APPLIC TOPICAL ×2 (08:16→20:20)
--- NOTE | 2024-08-05 09:18 | W.PN.HOSP.TC ---
Addendum entered and electronically signed by Georgia Michael MD 08/05/24 13:45:
Addendum
UTI: Urine culture is positive for E. coli and Klebsiella, oconnor sensitive, c/w Rocephin.
Updated daughter at bed side
End
Original Note:
Today's Communication/Plan
-
chest x ray in am
c/w Neb
Lasix
Steroid
IV Abx
Assessment / Plan
Assessment / Plan
Physical exam:
General: Obese, seems in mild respiratory distress
HEENT: Normocephalic, Anicteric, Moist mucous membranes
Respiratory: very limited, not much Wheezes.
Cardiac: S1/S2.
GI: Soft, Non Tender, Non Distended,
Musculoskeletal: trace edema
Neuro: AO x 3, No Motor Deficits, Nonfocal/grossly intact
Psych: Calm
# Acute on chronic hypoxic respiratory failure likely from pneumonia and exacerbation
-Sepsis as evident by WBCs 18.4, lactic 2.1
Progressive sob history. Multifactorial ( heart failure, advanced COPD, untreated JUAN ANTONIO, PNA ). Obstructive sleep apnea/CPAP intolerant.
She is feeling better , breathing is not worsening
She is not improving despite aggressive medical care, also limitation due to her inability to tolerate mask therapy as ( C pap-Bipap,nebulizer).
c/w oral Lasix. IV AB. IV Steroid (IV steroid, increased to BID )
Resumed Symbicort 160mcg
Nebulized Duo Neb QID with PRN DuoNeb q4hr
Continue Mucinex, increased to 1200 mg twice daily
Incentive spirometry & Acapella
Repeat chest x ray in am
Appreciate pulmonary help
#Acute on Chronic heart failure preserved EF.
c/w Lasix,
Monitor weight , lost some weight
# Hypokalemia/[place] on CKD stage IIIb likely from fluid overload
# Multiple compression fractures in the lumbar and lower thoracic spine most likely secondary to osteoporosis and chronic steroids
-PT/OT consulted
-Flexeril continued
-Oxycodone continued
# leukocytosis, seems c/w steroid reaction
No fevers.
Total time spent to see the patient, examine the patient on the floor, review data and lab results, discuss treatment plan with patient, nursing staff around 55 minutes
Anticipated Discharge: > 48 hours
Subjective/Interval History
-
Date of Service: August 05, 2024
Same breathing status , not worsening
Objective Data
-
Labs:
Laboratory Results
08/05/24
05:54
WBC 15.9 H
Hgb 11.7 L
Hct 36.8 L
Plt Count 425 H
Sodium 141
Potassium 3.9
Chloride 97 L
Carbon Dioxide 33 H
BUN 44 H
Creatinine 1.5 H
Glucose 151 H
Calcium 9.3
Vital Signs:
Vital Signs
Temp Pulse Resp BP Pulse Ox
97.6 F 82 22 129/72 96
08/05/24 07:30 08/05/24 07:30 08/05/24 07:30 08/05/24 07:30 08/05/24 07:30
I&O
08/04/24 08/05/24 08/06/24
06:59 06:59 06:59
Intake Total 420 / 420 780 / 780
Output Total 240 / 240
Balance 180 / 180 780 / 780
[2024-08-05 11:17] VITALS: BP 130/76
[2024-08-05 12:47] VITALS: BP 115/83; BP 128/80; PULSE 100; O2SAT 93
[2024-08-05] MEDS: ROXICODONE 5 MG PO (15:30)
[2024-08-05 15:45] VITALS: BP 149/80
[2024-08-05] MEDS: ZITHROMAX 500 MG PO (21:46)
[2024-08-05] MEDS: STERILE WATER FOR INJECTION 10 ML IV (21:46)
[2024-08-05] MEDS: ROCEPHIN 1000 MG IV (21:46)
[2024-08-05] MEDS: TYLENOL 650 MG PO (21:48)
[2024-08-05] MEDS: FLUSH (NSS) 2 FLUSH IV (21:49)
[2024-08-05 23:00] VITALS: BP 134/73
[2024-08-06 06:00] VITALS: BMI 32.3
[2024-08-06 06:30] LABS: Hematocrit 35.1 % (37.0-47.0); Hemoglobin 11.3 g/dL (12.0-16.0); Mean Corp Hgb Conc. 32.2 g/dL (33.0-37.0); Mean Corpuscular Volume 90.2 fL (81.0-99.0); Mean Platelet Volume 9.9 fL (7.4-10.4); Platelet Count 447 10^3/uL (130-400); Red Blood Cell Count 3.89 10^6/uL (4.20-5.40); Red Cell Dist. Width 14.6 % (11.5-14.5); White Blood Cell Count 18.3 10^3/uL (4.8-10.8)
[2024-08-06 07:01] LABS: Blood Urea Nitrogen 52 mg/dl (7-17); Calcium 9.5 mg/dl (8.4-10.2); Carbon Dioxide 33 mmol/L (22-30); Chloride 97 mmol/L (98-107); Estimated Creatinine Clearance 37 ml/min; Glucose 176 mg/dl (70-99); Sodium 141 mmol/L (135-145); eGFR 33.63
[2024-08-06 07:39] VITALS: BP 128/82
[2024-08-06] MEDS: DUONEB 3 ML INH ×4 (07:43→19:54)
[2024-08-06] MEDS: SYMBICORT 160/4.5 MCG INHALER 2 PUFF INH ×2 (07:44→19:54)
[2024-08-06] MEDS: CLARITIN 5 MG PO ×2 (08:27→19:33)
[2024-08-06] MEDS: SOLU-MEDROL PF 40 MG IV (08:28)
[2024-08-06] MEDS: SUDAFED 12 HOUR (EXTENDED RELEASE) 120 MG PO ×2 (08:28→19:33)
[2024-08-06] MEDS: ZOLOFT 100 MG PO (08:28)
[2024-08-06] MEDS: WELLBUTRIN XL (24 hour extended release) 300 MG PO (08:28)
[2024-08-06] MEDS: HEPARIN 5000 UNITS SC ×2 (08:29→19:33)
[2024-08-06] MEDS: MUCINEX 1200 MG PO ×2 (08:30→19:33)
[2024-08-06] MEDS: LASIX 40 MG PO (08:30)
[2024-08-06] MEDS: DESENEX/MITRAZOL/ZEASORB 1 APPLIC TOPICAL ×2 (08:31→19:34)
--- NOTE | 2024-08-06 09:24 | W.PN.PUL3 ---
Today's Communication / Plan
-
UTI on abx
Still wheezing, continue steroids, transitioned to PO prednisone already
Encouraged OOB/PT/OT
Maintained on lasix, follows noncompliant diet
OP pulmonary FU at discharge
Assessment
-
74-year-old obese female with a history of COPD, CHF on chronic oxygen at home presented with mental status changes, back and hip pain, diarrhea and treated with antibiotics, COPD exacerbation and diuretics but continues to have significant
shortness of breath and hypoxemia-pulmonary was consulted for ongoing hypoxemia and shortness of breath 08/04/2024.
UTI
COPD/asthma overlap with acute exacerbation
CHFpEF exacerbation
Obesity (BMI: 37)
Leukocytosis
[id number]-40.2
[place]
Mild hyperglycemia
DNR
Conditions present prior to admission:
Recent hospitalization 01/24/2024-COPD exacerbation
Recent hospitalization 03/19/2024-acute on top of chronic hypoxic respiratory failure CHF and COPD
Recent hospitalization 05/07-CHF, acute on top of chronic back pain, UTI, [place] and COPD
Recent hospitalization-06/22/2024-back pain, chronic hypoxemic respiratory failure, chronic COPD and chronic CHF
Repetitive hospitalizations for COPD exacerbation-December, April, July, August, September 2023
Syncope admission August 2020-found minimally responsive, septic shock, left lower extremity fasciitis requiring mechanical ventilation
s/p extensive surgical debridement and wound VAC for 10 months
COPD/asthma overlap oxygen dependent 2 L-followed by Dr. Roque-maintained on Lina Sexton
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
Active smoker.
Pulmonary nodule-largest 6.7 mm right upper lobe-CT 06/22/2024
Covid illness September 2023
Obstructive sleep apnea/CPAP intolerant.
Chronic heart failure preserved EF.
Moderate mitral regurgitation
Mild aortic stenosis
Moderate aortic regurgitation
Chronic kidney disease stage III.
Anxiety/depression.
Obesity.
Obstructive sleep apnea-previously noncompliant with CPAP-was willing to have repeat PSG and titration-has yet to obtain study
Sciatica.
Prior lumbar fracture.
Left lower extremity fasciitis.
Hyponatremia.
Renal calculi.
Cataract. Carpal tunnel release. Cholecystectomy 1975. Shoulder surgery 1992.
Plan
Respiratory decompensation likely a combination of CHF with preserved EF/valvular disease and advanced COPD-radiographs, echocardiograms, and pulmonary functions over the last several years are summarized below
Supplemental oxygen as needed
BiPAP if needed
Noninvasive ventilation if needed
High flow oxygen if appropriate
Patient is a DNR-not to be intubated
Albuterol nebulizers 4 times daily
Pulmicort nebulizers
Mucolytic's-Mucinex 600 twice daily--increased to 1200 mg twice daily
Solu-Medrol 40 mg IV daily--had increased to twice daily
Incentive spirometry will be provided
Acapella encouraged and mucus clearing devices
Consider vest if difficulties mobilizing secretions
Consider chest physiotherapy if difficulties mobilizing secretions
Significant eosinophilia in the past-consider adding Biologics with recurrent prednisone requiring exacerbations
Cultures reviewed
Legionella urine antigen negative
Blood cultures negative
Urine culture E. coli and Klebsiella
Empiric antibiotics continue-on Rocephin and azithromycin
Monitor leukocytosis and temperature curve
proBNP 3250
Diuresis as tolerated-PO lasix
Monitor renal function, weight, lower extremity edema and electrolytes
Monitor blood sugars
Insulin supplementation as needed
Smoking cessation counseling ongoing
DVT prophylaxis-on subcu heparin
GI prophylaxis recommended if on steroids for prolonged period
Early nutrition
Early mobilization
Reviewed with nursing, respiratory therapy, and primary team.
Last seen by Dr. Wendy Roque 03/22/2024 and subsequently Lisa Riley NP 04/05/2024-will suggest follow-up in the next couple weeks postdischarge-consider adding Biologics with recurrent prednisone requiring exacerbations/asthma component and
significant eosinophilia in the past
Diagnostic data:
Chest x-ray 06/25/22: mild cardiomeg suggestive of elevated pulm venous pressures, no acute evidence of PNA, suspect mild symmetric subpleural inflammatory interstitial pneumonitis.�������
Chest x-ray 05/04/22: cardiomegaly with prominent vascularity suggesting CHF�������
Chest x-ray 01/02/23- No focal interstitial or airspace opacity.�����
Chest x-ray 10/28/2023-NAD
Chest x-ray 01/18/2024-pulmonary vascularity at top normal
Chest x-ray 01/24/2024- Chronic obstructive pulmonary disease; No superimposed acute abnormalities
Chest x-ray 08/01/2024-cephalization with borderline pulmonary edema
CT abdomen and pelvis 01/14/2024-mild atelectasis at lung bases, small bullae left lung base without pneumothorax, no evidence for intestinal obstruction
CT chest 06/22/2024-compression fractures T8, T10, T11, centrilobular emphysema, pulmonary nodules the larger measuring 6.7 mm right upper lobe
US LLE 11/09/19: no evidence of DVT.
Echocardiogram 01/03/23- Low-normal LV function, EF 50%. no significant valvular disease.
Echocardiogram 08/18/2023-EF 50-55%, mild aortic regurgitation
Echocardiogram 04/18/2024-EF 55-60%, moderate mitral regurgitation, mild aortic stenosis-ZACHARIAH 1.5 cm, moderate aortic regurgitation
[place] 06/01/22: FVC 1.63/77%, FEV1 0.98/62%, ratio 60%, no significant BD response. Moderate obstruction and suggestive of mild restrictive pattern.
Spirometry 03/22/24: FEV1 1.17L 52%, FVC 2.23L 75%, ratio 52, post FEV1 1.2L 54%, no BD response (moderate obstruction, stable)��������
Spirometry 01/26/23- FVC 2.03 or 66%, FEV1 1.27 or 55%, Ratio 62%. (moderate obstruction)��������
PFTs 07/02/22: FEV1 1.25L 54%, FVC 2.09L 68%, ratio 60. Post FEV1 1.32L 57%. No significant bronchodilator response. TLC 4.34L 84%, DLCO 50% (moderate obstruction, normal volumes, moderate diffusion impairment)
Subjective Data
-
Date of Service:
Date of Service: August 06, 2024
Chief Complaint: Pulmonary Follow Up and Dyspnea Follow Up
Subjective:
No acute events ON, remains on supplemental O2
Still wheezing, SOB
She does not feel worse
Objective Data
Data Reviewed
Vital Signs / I&O / Oxygen:
Vital Signs
Temp Pulse Resp BP Pulse Ox
97.7 F 91 20 128/82 96
08/06/24 07:39 08/06/24 08:30 08/06/24 07:47 08/06/24 08:30 08/06/24 07:47
Intake and Output
08/05/24 08/06/24 08/07/24
06:59 06:59 06:59
Intake Total 780 / 780 480 / 480
Output Total 600 / 600
Balance 780 / 780 -120 / -120
SaO2 96
Nasal Cannula flow liters per 3
minute
Physical Exam
General: Respiratory Distress (n) and Comfortable
HEENT: Normocephalic, Anicteric and Moist Mucous Membranes
Cardiovascular: Regular Rhythm
Respiratory: Clear (Decreased breath sounds and prolonged expiratory time), Wheeze ( expiratory), Crackles (Rare basilar), Rhonchi (n), Non-Labored Respirations, Accessory Resp Muscle Use (n) and Stridor (n)
GI: Soft, Non Distended and Non Tender
Neurology: Awake, Alert, AO x 3 and No Motor Deficits
Skin: Warm, Good Color, Cyanosis (n), Jaundice (n) and Rash (n)
Labs/Micro/Reports
Lab Data
08/06/24 06:02
08/06/24 06:02
Microbiology
08/01/24 22:04 Blood/Venous Blood Culture - Preliminary
No Growth in 4 days- Final report to follow
08/01/24 20:48 Blood/Venous Blood Culture - Preliminary
No Growth in 4 days- Final report to follow
08/01/24 16:34 Urine Urine Culture - Final
Escherichia coli
Klebsiella pneumoniae
--- NOTE | 2024-08-06 12:36 | CM ---
Addendum entered by Jessie Marinelli 08/06/24 16:16:
Pt has 18 [facility] rehab days left
[facility] will require a financial maurilio- private rate $550 day
[facility] maurilio provided to pt per her request
She will fill out tonight and plan for CM to cone picker tomorrow to submit to [facility]
Pt also in agreement with referral to [facility]
Would like to do verbal financial review to assess if she is eligible for [facility]
Update to [facility]- referral sent [facility]
Awaiting financial reviews for both [facility] and [facility]
Original Note:
CM met with pt bedside
Therapy with SNF recommendations
PAC provided
Referral to [facility] per pt request as she has hx there
Per pt, likely close to running out of [facility] days
Referral to [facility] via [facility]/admissions will run [facility] coverage
If out of days, will need to discuss private pay vs [facility] with pt
Awaiting outcome of [facility] referral
Pt on contact precautions for ESBL+
Discharge Disposition- SNF ([facility] coverage vs private pay vs [facility])
[2024-08-06] MEDS: DELTASONE 40 MG PO (14:53)
[2024-08-06 16:05] VITALS: BP 96/71
--- NOTE | 2024-08-06 16:43 | W.PN.HOSP.TC ---
Today's Communication/Plan
-
Continue oxygen supplementation
Continue antibiotics
Transition to oral steroids
Physical therapy evaluation
Ongoing disposition efforts for discharge to [facility] facility for
Assessment / Plan
Assessment / Plan
Impression:
Presentation with UTI and clinical sepsis.
COPD/asthma exacerbation
CHF preserved EF exacerbation
Other conditions:
Chronic hypoxic respiratory failure on home O2.
COPD/asthma
CHF preserved EF
Mild to moderate aortic stenosis/moderate mitral regurgitation
Anemia of chronic disease.
Chronic kidney disease stage IIIb.
Compression fractures
Osteoporosis
Anxiety/depression
Plan:
Presentation with clinical sepsis secondary to urinary tract infection.
Urine culture positive for Klebsiella pneumonia and E. coli
Blood cultures negative to date
Patient responding to antibiotics and remains afebrile
She does have persistent leukocytosis likely attributed to corticosteroid therapy
Acute on chronic hypoxic respiratory failure likely multifactorial due to COPD exacerbation as well as acute pulmonary edema.
Overall respiratory status improving with no evidence of distress.
Remains on oxygen supplementation at the baseline.
Imaging including chest x-ray with no focal infiltrates.
Sputum Gram stain with gram-negative rods pending final identification.
Responded to IV Lasix and transition to oral furosemide in the maintenance.
Continue inhaled bronchodilators.
Continue with systemic steroids transitioning from Solu-Medrol to prednisone on 08/06
Increase activity.
Anticipated Discharge: 24 - 48 hours
Subjective/Interval History
-
Date of Service: August 06, 2024
Objective Data
-
Labs:
Laboratory Results
08/06/24
06:02
WBC 18.3 H
Hgb 11.3 L
Hct 35.1 L
Plt Count 447 H
Sodium 141
Potassium 4.0
Chloride 97 L
Carbon Dioxide 33 H
BUN 52 H
Creatinine 1.6 H
Glucose 176 H
Calcium 9.5
Vital Signs:
Vital Signs
Temp Pulse Resp BP Pulse Ox
97.8 F 95 18 96/71 97
08/06/24 16:05 08/06/24 16:05 08/06/24 16:05 08/06/24 16:05 08/06/24 16:05
I&O
08/05/24 08/06/24 08/07/24
06:59 06:59 06:59
Intake Total 780 / 780 480 / 480
Output Total 600 / 600
Balance 780 / 780 -120 / -120
Physical Exam
-
General: No Apparent Distress
HEENT: Normocephalic and Atraumatic
Respiratory: Wheezes and Rhonchi
Cardiac: Regular Rhythm
GI: Soft, Nontender and Nondistended
Genito-urinary: No Costovertebral Tender
Musculoskeletal: No Clubbing, No Cyanosis and No Edema
Neuro: Awake, Alert, Oriented and AO x 3
[2024-08-06] MEDS: ZITHROMAX 500 MG PO (22:05)
[2024-08-06] MEDS: STERILE WATER FOR INJECTION 10 ML IV (22:41)
[2024-08-06] MEDS: ROCEPHIN 1000 MG IV (22:42)
--- NOTE | 2024-08-06 23:29 | PTCARENOTE ---
Pt ambulated to bathroom with stand by assist and rolling walker. After getting back to bed pt able to turn self unassisted. MENENDEZ. Will continue to monitor.
[2024-08-06 23:34] VITALS: BP 146/81
[2024-08-07 05:25] VITALS: BMI 32.1
[2024-08-07 05:55] LABS: Hematocrit 36.8 % (37.0-47.0); Hemoglobin 11.6 g/dL (12.0-16.0); Mean Corp Hgb Conc. 31.5 g/dL (33.0-37.0); Mean Corpuscular Hgb 28.7 pg (27.0-31.0); Mean Corpuscular Volume 91.1 fL (81.0-99.0); Mean Platelet Volume 9.9 fL (7.4-10.4); Platelet Count 457 10^3/uL (130-400); Red Blood Cell Count 4.04 10^6/uL (4.20-5.40); Red Cell Dist. Width 14.5 % (11.5-14.5); White Blood Cell Count 20.8 10^3/uL (4.8-10.8)
[2024-08-07 06:22] LABS: Blood Urea Nitrogen 56 mg/dl (7-17); Calcium 9.5 mg/dl (8.4-10.2); Carbon Dioxide 32 mmol/L (22-30); Chloride 98 mmol/L (98-107); Estimated Creatinine Clearance 40 ml/min; Glucose 145 mg/dl (70-99); Potassium 3.8 mmol/L (3.5-5.1); Sodium 143 mmol/L (135-145); eGFR 36.34
[2024-08-07 07:46] VITALS: BP 147/68
[2024-08-07] MEDS: DUONEB 3 ML INH ×4 (08:18→20:09)
[2024-08-07] MEDS: SYMBICORT 160/4.5 MCG INHALER 2 PUFF INH ×2 (08:18→20:09)
[2024-08-07] MEDS: CLARITIN 5 MG PO ×2 (08:28→20:14)
[2024-08-07] MEDS: DELTASONE 40 MG PO (08:28)
[2024-08-07] MEDS: MUCINEX 1200 MG PO ×2 (08:29→20:16)
[2024-08-07] MEDS: LASIX 40 MG PO (08:29)
[2024-08-07] MEDS: SUDAFED 12 HOUR (EXTENDED RELEASE) 120 MG PO ×2 (08:29→20:15)
[2024-08-07] MEDS: WELLBUTRIN XL (24 hour extended release) 300 MG PO (08:29)
[2024-08-07] MEDS: ZOLOFT 100 MG PO (08:30)
[2024-08-07] MEDS: HEPARIN 5000 UNITS SC ×2 (08:30→20:16)
[2024-08-07] MEDS: DESENEX/MITRAZOL/ZEASORB 1 APPLIC TOPICAL ×2 (08:32→22:03)
--- NOTE | 2024-08-07 09:19 | W.PN.PUL3 ---
Today's Communication / Plan
-
still wheezing but improved, continue prednisone taper
wean O2 as tolerated
abx per team
encouraged oob/PT, likely to need SNF
Assessment
-
74-year-old obese female with a history of COPD, CHF on chronic oxygen at home presented with mental status changes, back and hip pain, diarrhea and treated with antibiotics, COPD exacerbation and diuretics but continues to have significant
shortness of breath and hypoxemia-pulmonary was consulted for ongoing hypoxemia and shortness of breath 08/04/2024.
UTI
COPD/asthma overlap with acute exacerbation
CHFpEF exacerbation
Obesity (BMI: 37)
Leukocytosis
[id number]-60.2
[place]
Mild hyperglycemia
DNR
Conditions present prior to admission:
Recent hospitalization 01/24/2024-COPD exacerbation
Recent hospitalization 03/19/2024-acute on top of chronic hypoxic respiratory failure CHF and COPD
Recent hospitalization 05/07-CHF, acute on top of chronic back pain, UTI, [place] and COPD
Recent hospitalization-06/22/2024-back pain, chronic hypoxemic respiratory failure, chronic COPD and chronic CHF
Repetitive hospitalizations for COPD exacerbation-December, April, July, August, September 2023
Syncope admission August 2020-found minimally responsive, septic shock, left lower extremity fasciitis requiring mechanical ventilation
s/p extensive surgical debridement and wound VAC for 10 months
COPD/asthma overlap oxygen dependent 2 L-followed by Dr. Roque-maintained on Lina Sexton
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
Active smoker.
Pulmonary nodule-largest 6.7 mm right upper lobe-CT 06/22/2024
Covid illness September 2023
Obstructive sleep apnea/CPAP intolerant.
Chronic heart failure preserved EF.
Moderate mitral regurgitation
Mild aortic stenosis
Moderate aortic regurgitation
Chronic kidney disease stage III.
Anxiety/depression.
Obesity.
Obstructive sleep apnea-previously noncompliant with CPAP-was willing to have repeat PSG and titration-has yet to obtain study
Sciatica.
Prior lumbar fracture.
Left lower extremity fasciitis.
Hyponatremia.
Renal calculi.
Cataract. Carpal tunnel release. Cholecystectomy 1975. Shoulder surgery 1992.
Plan
Respiratory decompensation likely a combination of CHF with preserved EF/valvular disease and advanced COPD-radiographs, echocardiograms, and pulmonary functions over the last several years are summarized below
Supplemental oxygen as needed
BiPAP if needed
Noninvasive ventilation if needed
High flow oxygen if appropriate
Patient is a DNR-not to be intubated
Albuterol nebulizers 4 times daily
Pulmicort nebulizers
Mucolytic's-Mucinex 600 twice daily--increased to 1200 mg twice daily
Solu-Medrol 40 mg IV daily--transitioned to prednisone
Incentive spirometry will be provided
Acapella encouraged and mucus clearing devices
Consider vest if difficulties mobilizing secretions
Consider chest physiotherapy if difficulties mobilizing secretions
Significant eosinophilia in the past-consider adding Biologics with recurrent prednisone requiring exacerbations
Cultures reviewed
Legionella urine antigen negative
Blood cultures negative
Urine culture E. coli and Klebsiella
Empiric antibiotics continue-on Rocephin and azithromycin
Monitor leukocytosis and temperature curve
proBNP 3250
Diuresis as tolerated-PO lasix
Monitor renal function, weight, lower extremity edema and electrolytes
Monitor blood sugars
Insulin supplementation as needed
Smoking cessation counseling ongoing
DVT prophylaxis-on subcu heparin
GI prophylaxis recommended if on steroids for prolonged period
Early nutrition
Early mobilization
Reviewed with nursing, respiratory therapy, and primary team.
Last seen by Dr. Wendy Roque 03/22/2024 and subsequently Lisa Riley NP 04/05/2024-will suggest follow-up in the next couple weeks postdischarge-consider adding Biologics with recurrent prednisone requiring exacerbations/asthma component and
significant eosinophilia in the past
Diagnostic data:
Chest x-ray 06/25/22: mild cardiomeg suggestive of elevated pulm venous pressures, no acute evidence of PNA, suspect mild symmetric subpleural inflammatory interstitial pneumonitis.�������
Chest x-ray 05/04/22: cardiomegaly with prominent vascularity suggesting CHF�������
Chest x-ray 01/02/23- No focal interstitial or airspace opacity.�����
Chest x-ray 10/28/2023-NAD
Chest x-ray 01/18/2024-pulmonary vascularity at top normal
Chest x-ray 01/24/2024- Chronic obstructive pulmonary disease; No superimposed acute abnormalities
Chest x-ray 08/01/2024-cephalization with borderline pulmonary edema
CT abdomen and pelvis 01/14/2024-mild atelectasis at lung bases, small bullae left lung base without pneumothorax, no evidence for intestinal obstruction
CT chest 06/22/2024-compression fractures T8, T10, T11, centrilobular emphysema, pulmonary nodules the larger measuring 6.7 mm right upper lobe
US LLE 11/09/19: no evidence of DVT.
Echocardiogram 01/03/23- Low-normal LV function, EF 50%. no significant valvular disease.
Echocardiogram 08/18/2023-EF 50-55%, mild aortic regurgitation
Echocardiogram 04/18/2024-EF 55-60%, moderate mitral regurgitation, mild aortic stenosis-ZACHARIAH 1.5 cm, moderate aortic regurgitation
[place] 06/01/22: FVC 1.63/77%, FEV1 0.98/62%, ratio 60%, no significant BD response. Moderate obstruction and suggestive of mild restrictive pattern.
Spirometry 03/22/24: FEV1 1.17L 52%, FVC 2.23L 75%, ratio 52, post FEV1 1.2L 54%, no BD response (moderate obstruction, stable)��������
Spirometry 01/26/23- FVC 2.03 or 66%, FEV1 1.27 or 55%, Ratio 62%. (moderate obstruction)��������
PFTs 07/02/22: FEV1 1.25L 54%, FVC 2.09L 68%, ratio 60. Post FEV1 1.32L 57%. No significant bronchodilator response. TLC 4.34L 84%, DLCO 50% (moderate obstruction, normal volumes, moderate diffusion impairment)
Subjective Data
-
Date of Service:
Date of Service: August 07, 2024
Chief Complaint: Pulmonary Follow Up and Dyspnea Follow Up
Subjective:
Remains the same, feels slightly better
Wheezing remains
Objective Data
Data Reviewed
Vital Signs / I&O / Oxygen:
Vital Signs
Temp Pulse Resp BP Pulse Ox
97.7 F 80 20 147/68 96
08/07/24 07:46 08/07/24 08:29 08/07/24 08:20 08/07/24 08:29 08/07/24 08:20
Intake and Output
08/06/24 08/07/24 08/08/24
06:59 06:59 06:59
Intake Total 480 / 480 1090 / 1090
Output Total 600 / 600
Balance -120 / -120 1090 / 1090
SaO2 96
Nasal Cannula flow liters per 3
minute
Physical Exam
General: Respiratory Distress (n) and Comfortable
HEENT: Normocephalic, Anicteric and Moist Mucous Membranes
Cardiovascular: Regular Rhythm
Respiratory: Clear (Decreased breath sounds and prolonged expiratory time), Wheeze ( expiratory), Crackles (Rare basilar), Rhonchi (n), Non-Labored Respirations, Accessory Resp Muscle Use (n) and Stridor (n)
GI: Soft, Non Distended and Non Tender
Neurology: Awake, Alert, AO x 3 and No Motor Deficits
Skin: Warm, Good Color, Cyanosis (n), Jaundice (n) and Rash (n)
Labs/Micro/Reports
Lab Data
08/07/24 05:35
08/07/24 05:35
Microbiology
08/01/24 22:04 Blood/Venous Blood Culture - Final
No Growth - Final Report
08/01/24 20:48 Blood/Venous Blood Culture - Final
No Growth - Final Report
08/01/24 21:22 Sputum Gram Stain - Preliminary
08/01/24 16:34 Urine Urine Culture - Final
Escherichia coli
Klebsiella pneumoniae
[2024-08-07 12:56] VITALS: BP 124/88; PULSE 98; O2SAT 93
[2024-08-07 14:55] VITALS: BP 135/74; PULSE 97; O2SAT 97
[2024-08-07 15:00] VITALS: BP 128/69
[2024-08-07] MEDS: MAXIPIME 1000 MG IV ×2 (16:27→23:58)
[2024-08-07] MEDS: STERILE WATER FOR INJECTION 10 ML IV ×2 (16:29→23:59)
--- NOTE | 2024-08-07 16:39 | CM ---
Spoke with Elvi from [facility] . Pt has 18 days on rehab left.
Bob Garvin requesting financial application. Spoke with pt in room.
Pt has paper encouraged her to complete forms as soon as possible.
[facility] pending completion of papers.
please forward completed financial forms to fax [phone].
PLAN Possible Plerts
--- NOTE | 2024-08-07 17:30 | W.PN.HOSP.TC ---
Today's Communication/Plan
-
Steroid taper
Oxygen supplementation currently at the baseline.
Redirect antibiotics to Pseudomonas in the sputum transitioning to cefepime pending final sensitivity.
Assessment / Plan
Assessment / Plan
Impression:
Presentation with UTI and clinical sepsis.
COPD/asthma exacerbation
CHF preserved EF exacerbation
Other conditions:
Chronic hypoxic respiratory failure on home O2.
COPD/asthma
CHF preserved EF
Mild to moderate aortic stenosis/moderate mitral regurgitation
Anemia of chronic disease.
Chronic kidney disease stage IIIb.
Compression fractures
Osteoporosis
Anxiety/depression
Plan:
Presentation with clinical sepsis secondary to urinary tract infection.
Urine culture positive for Klebsiella pneumonia and E. coli
Blood cultures negative to date
Patient responding to antibiotics and remains afebrile
She does have persistent leukocytosis likely attributed to corticosteroid therapy
Acute on chronic hypoxic respiratory failure likely multifactorial due to COPD exacerbation as well as acute pulmonary edema.
Overall respiratory status improving with no evidence of distress.
Remains on oxygen supplementation at the baseline.
Imaging including chest x-ray with no focal infiltrates.
Sputum Gram stain with Pseudomonas pending sensitivity
Transition to cefepime
Continue inhaled bronchodilators.
Continue with systemic steroids transitioning from Solu-Medrol to prednisone on 08/06
Responded to IV Lasix and transition to oral furosemide in the maintenance.
Anticipated Discharge: 24 - 48 hours
Subjective/Interval History
-
Date of Service: August 07, 2024
Objective Data
-
Labs:
Laboratory Results
08/07/24
05:35
WBC 20.8 H
Hgb 11.6 L
Hct 36.8 L
Plt Count 457 H
Sodium 143
Potassium 3.8
Chloride 98
Carbon Dioxide 32 H
BUN 56 H
Creatinine 1.5 H
Glucose 145 H
Calcium 9.5
Vital Signs:
Vital Signs
Temp Pulse Resp BP Pulse Ox
97.8 F 76 18 128/69 96
08/07/24 15:00 08/07/24 15:52 08/07/24 15:52 08/07/24 15:00 08/07/24 15:52
I&O
08/06/24 08/07/24 08/08/24
06:59 06:59 06:59
Intake Total 480 / 480 1090 / 1090 480 / 480
Output Total 600 / 600
Balance -120 / -120 1090 / 1090 480 / 480
Physical Exam
-
General: No Apparent Distress
HEENT: Normocephalic and Atraumatic
Respiratory: Wheezes and Rhonchi
Cardiac: Regular Rhythm
GI: Soft, Nontender and Nondistended
Genito-urinary: No Costovertebral Tender
Musculoskeletal: No Clubbing, No Cyanosis and No Edema
Neuro: Awake, Alert, Oriented and AO x 3
[2024-08-07] MEDS: FLEXERIL 5 MG PO (20:32)
[2024-08-07] MEDS: ZITHROMAX 500 MG PO (22:00)
[2024-08-07 23:33] VITALS: BP 135/70
[2024-08-08 06:00] VITALS: BMI 32.3
[2024-08-08 06:04] LABS: % Basophils 0.3 % (0-2); % Eosinophils 0.1 % (0-6); % Immature Granulocytes 4.1 % (0-0.5); % Neutrophils 76.5 % (42.2-75.2); Absolute Basophils 0.1 10^3/uL (0-0.2); Absolute Immature Granulocytes 0.8 10^3/uL (0-0.05); Absolute Monocytes 1.8 10^3/uL (0.1-0.6); Absolute Neutrophils 15.5 10^3/uL (1.4-6.5); Hematocrit 36.9 % (37.0-47.0); Hemoglobin 11.7 g/dL (12.0-16.0); Mean Corp Hgb Conc. 31.7 g/dL (33.0-37.0); Mean Corpuscular Hgb 29.7 pg (27.0-31.0); Mean Corpuscular Volume 93.7 fL (81.0-99.0); Mean Platelet Volume 9.7 fL (7.4-10.4); Nucleated Red Blood Cells % 0 %; Platelet Count 429 10^3/uL (130-400); Red Blood Cell Count 3.94 10^6/uL (4.20-5.40); Red Cell Dist. Width 14.8 % (11.5-14.5); White Blood Cell Count 20.2 10^3/uL (4.8-10.8)
[2024-08-08 06:30] LABS: Blood Urea Nitrogen 59 mg/dl (7-17); Calcium 9.1 mg/dl (8.4-10.2); Carbon Dioxide 33 mmol/L (22-30); Chloride 99 mmol/L (98-107); Estimated Creatinine Clearance 40 ml/min; Glucose 95 mg/dl (70-99); Potassium 3.7 mmol/L (3.5-5.1); Sodium 143 mmol/L (135-145); eGFR 36.34
[2024-08-08 07:32] VITALS: BP 119/66
[2024-08-08] MEDS: SYMBICORT 160/4.5 MCG INHALER 2 PUFF INH ×2 (07:50→19:31)
[2024-08-08] MEDS: DUONEB 3 ML INH ×4 (07:50→19:31)
[2024-08-08] MEDS: WELLBUTRIN XL (24 hour extended release) 300 MG PO (08:42)
[2024-08-08] MEDS: ZOLOFT 100 MG PO (08:42)
[2024-08-08] MEDS: CLARITIN 5 MG PO ×2 (08:42→20:35)
[2024-08-08] MEDS: SUDAFED 12 HOUR (EXTENDED RELEASE) 120 MG PO ×2 (08:42→20:35)
[2024-08-08] MEDS: MUCINEX 1200 MG PO ×2 (08:43→20:36)
[2024-08-08] MEDS: LASIX 40 MG PO (08:43)
[2024-08-08] MEDS: HEPARIN 5000 UNITS SC ×2 (08:43→20:36)
[2024-08-08] MEDS: DELTASONE 40 MG PO (08:44)
[2024-08-08] MEDS: MAXIPIME 1000 MG IV (08:48)
[2024-08-08] MEDS: STERILE WATER FOR INJECTION 10 ML IV (08:49)
[2024-08-08] MEDS: DESENEX/MITRAZOL/ZEASORB 1 APPLIC TOPICAL ×2 (08:50→20:36)
--- NOTE | 2024-08-08 11:27 | W.PN.PUL3 ---
Today's Communication / Plan
-
pseudomonas noted in sputum agree with LVQ, can complete 14 day course
continue prednisone taper
resumed on home inhalers, nebs PRN
encouraged OOB/PT
O2 eval at discharge
OP FU recommended
Assessment
-
74-year-old obese female with a history of COPD, CHF on chronic oxygen at home presented with mental status changes, back and hip pain, diarrhea and treated with antibiotics, COPD exacerbation and diuretics but continues to have significant
shortness of breath and hypoxemia-pulmonary was consulted for ongoing hypoxemia and shortness of breath 08/04/2024.
UTI
COPD/asthma overlap with acute exacerbation
Pseudomonas PNA
CHFpEF exacerbation
Obesity (BMI: 37)
Leukocytosis
[id number]-37.2
[place]
Mild hyperglycemia
DNR
Conditions present prior to admission:
Recent hospitalization 01/24/2024-COPD exacerbation
Recent hospitalization 03/19/2024-acute on top of chronic hypoxic respiratory failure CHF and COPD
Recent hospitalization 05/07-CHF, acute on top of chronic back pain, UTI, [place] and COPD
Recent hospitalization-06/22/2024-back pain, chronic hypoxemic respiratory failure, chronic COPD and chronic CHF
Repetitive hospitalizations for COPD exacerbation-December, April, July, August, September 2023
Syncope admission August 2020-found minimally responsive, septic shock, left lower extremity fasciitis requiring mechanical ventilation
s/p extensive surgical debridement and wound VAC for 10 months
COPD/asthma overlap oxygen dependent 2 L-followed by Dr. Roque-maintained on Lina Sexton
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
Active smoker.
Pulmonary nodule-largest 6.7 mm right upper lobe-CT 06/22/2024
Covid illness September 2023
Obstructive sleep apnea/CPAP intolerant.
Chronic heart failure preserved EF.
Moderate mitral regurgitation
Mild aortic stenosis
Moderate aortic regurgitation
Chronic kidney disease stage III.
Anxiety/depression.
Obesity.
Obstructive sleep apnea-previously noncompliant with CPAP-was willing to have repeat PSG and titration-has yet to obtain study
Sciatica.
Prior lumbar fracture.
Left lower extremity fasciitis.
Hyponatremia.
Renal calculi.
Cataract. Carpal tunnel release. Cholecystectomy 1975. Shoulder surgery 1992.
Plan
Respiratory decompensation likely a combination of CHF with preserved EF/valvular disease and advanced COPD-radiographs, echocardiograms, and pulmonary functions over the last several years are summarized below
Supplemental oxygen as needed
BiPAP if needed
Noninvasive ventilation if needed
High flow oxygen if appropriate
Patient is a DNR-not to be intubated
Albuterol nebulizers 4 times daily
Pulmicort nebulizers
Mucolytic's-Mucinex 600 twice daily--increased to 1200 mg twice daily
Solu-Medrol 40 mg IV daily--transitioned to prednisone
Incentive spirometry will be provided
Acapella encouraged and mucus clearing devices
Consider vest if difficulties mobilizing secretions
Consider chest physiotherapy if difficulties mobilizing secretions
Significant eosinophilia in the past-consider adding Biologics with recurrent prednisone requiring exacerbations
Cultures reviewed
Legionella urine antigen negative
Blood cultures negative
Urine culture E. coli and Klebsiella
Empiric antibiotics continue-on Rocephin and azithromycin
Monitor leukocytosis and temperature curve
Now with pseudomonas + sputum, sensitivities reviewed, changed to LVQ
proBNP 3250
Diuresis as tolerated-PO lasix
Monitor renal function, weight, lower extremity edema and electrolytes
Monitor blood sugars
Insulin supplementation as needed
Smoking cessation counseling ongoing
DVT prophylaxis-on subcu heparin
GI prophylaxis recommended if on steroids for prolonged period
Early nutrition
Early mobilization
Reviewed with nursing, respiratory therapy, and primary team.
Last seen by Dr. Wendy Roque 03/22/2024 and subsequently Lisa Riley NP 04/05/2024-will suggest follow-up in the next couple weeks postdischarge-consider adding Biologics with recurrent prednisone requiring exacerbations/asthma component and
significant eosinophilia in the past
Diagnostic data:
Chest x-ray 06/25/22: mild cardiomeg suggestive of elevated pulm venous pressures, no acute evidence of PNA, suspect mild symmetric subpleural inflammatory interstitial pneumonitis.�������
Chest x-ray 05/04/22: cardiomegaly with prominent vascularity suggesting CHF�������
Chest x-ray 01/02/23- No focal interstitial or airspace opacity.�����
Chest x-ray 10/28/2023-NAD
Chest x-ray 01/18/2024-pulmonary vascularity at top normal
Chest x-ray 01/24/2024- Chronic obstructive pulmonary disease; No superimposed acute abnormalities
Chest x-ray 08/01/2024-cephalization with borderline pulmonary edema
CT abdomen and pelvis 01/14/2024-mild atelectasis at lung bases, small bullae left lung base without pneumothorax, no evidence for intestinal obstruction
CT chest 06/22/2024-compression fractures T8, T10, T11, centrilobular emphysema, pulmonary nodules the larger measuring 6.7 mm right upper lobe
US LLE 11/09/19: no evidence of DVT.
Echocardiogram 01/03/23- Low-normal LV function, EF 50%. no significant valvular disease.
Echocardiogram 08/18/2023-EF 50-55%, mild aortic regurgitation
Echocardiogram 04/18/2024-EF 55-60%, moderate mitral regurgitation, mild aortic stenosis-ZACHARIAH 1.5 cm, moderate aortic regurgitation
[place] 06/01/22: FVC 1.63/77%, FEV1 0.98/62%, ratio 60%, no significant BD response. Moderate obstruction and suggestive of mild restrictive pattern.
Spirometry 03/22/24: FEV1 1.17L 52%, FVC 2.23L 75%, ratio 52, post FEV1 1.2L 54%, no BD response (moderate obstruction, stable)��������
Spirometry 01/26/23- FVC 2.03 or 66%, FEV1 1.27 or 55%, Ratio 62%. (moderate obstruction)��������
PFTs 07/02/22: FEV1 1.25L 54%, FVC 2.09L 68%, ratio 60. Post FEV1 1.32L 57%. No significant bronchodilator response. TLC 4.34L 84%, DLCO 50% (moderate obstruction, normal volumes, moderate diffusion impairment)
Subjective Data
-
Date of Service:
Date of Service: August 08, 2024
Chief Complaint: Pulmonary Follow Up and Dyspnea Follow Up
Subjective:
Doing well today, less SOB
No new complaints
Objective Data
Data Reviewed
Vital Signs / I&O / Oxygen:
Vital Signs
Temp Pulse Resp BP Pulse Ox
98.5 F 79 18 119/66 95
08/08/24 07:32 08/08/24 08:43 08/08/24 07:53 08/08/24 08:43 08/08/24 07:53
Intake and Output
08/07/24 08/08/24 08/09/24
06:59 06:59 06:59
Intake Total 1090 / 1090 480 / 480
Balance 1090 / 1090 480 / 480
SaO2 95
Nasal Cannula flow liters per 4
minute
Physical Exam
General: Respiratory Distress (n) and Comfortable
HEENT: Normocephalic, Anicteric and Moist Mucous Membranes
Cardiovascular: Regular Rhythm
Respiratory: Clear (Decreased breath sounds and prolonged expiratory time), Wheeze ( expiratory), Crackles (Rare basilar), Rhonchi (n), Non-Labored Respirations, Accessory Resp Muscle Use (n) and Stridor (n)
GI: Soft, Non Distended and Non Tender
Neurology: Awake, Alert, AO x 3 and No Motor Deficits
Skin: Warm, Good Color, Cyanosis (n), Jaundice (n) and Rash (n)
Labs/Micro/Reports
Lab Data
08/08/24 05:33
08/08/24 05:33
Microbiology
08/01/24 21:22 Sputum Respiratory Culture - Final
Pseudomonas aeruginosa
08/01/24 21:22 Sputum Gram Stain - Final
08/01/24 22:04 Blood/Venous Blood Culture - Final
No Growth - Final Report
08/01/24 20:48 Blood/Venous Blood Culture - Final
No Growth - Final Report
[2024-08-08] MEDS: LEVAQUIN 500 MG PO (14:46)
[2024-08-08 15:37] VITALS: BP 112/65
--- NOTE | 2024-08-08 17:46 | W.PN.HOSP.TC ---
Today's Communication/Plan
-
Transition to oral antibiotics
Continue oxygen
Continue steroid taper.
Increase activity
Optimized for discharge to intermediate facility pending bed availability
Assessment / Plan
Assessment / Plan
Impression:
Presentation with UTI and clinical sepsis.
COPD/asthma exacerbation
CHF preserved EF exacerbation
Other conditions:
Chronic hypoxic respiratory failure on home O2.
COPD/asthma
CHF preserved EF
Mild to moderate aortic stenosis/moderate mitral regurgitation
Anemia of chronic disease.
Chronic kidney disease stage IIIb.
Compression fractures
Osteoporosis
Anxiety/depression
Plan:
Presentation with clinical sepsis secondary to urinary tract infection.
Urine culture positive for Klebsiella pneumonia and E. coli
Blood cultures negative to date
Patient responding to antibiotics and remains afebrile
She does have persistent leukocytosis likely attributed to corticosteroid therapy
Acute on chronic hypoxic respiratory failure likely multifactorial due to COPD exacerbation as well as acute pulmonary edema.
Overall respiratory status improving with no evidence of distress.
Remains on oxygen supplementation at the baseline.
Imaging including chest x-ray with no focal infiltrates.
Sputum Gram stain with Pseudomonas sensitive to quinolone
Transition off cefepime to levofloxacin to complete 2 weeks therapy through 08/22
Continue inhaled bronchodilators.
Continue with systemic steroids transitioning from Solu-Medrol to prednisone on 08/06
Responded to IV Lasix and transition to oral furosemide in the maintenance.
Anticipated Discharge: 24 - 48 hours
Subjective/Interval History
-
Date of Service: August 08, 2024
Objective Data
-
Labs:
Laboratory Results
08/08/24
05:33
WBC 20.2 H
Hgb 11.7 L
Hct 36.9 L
Plt Count 429 H
Sodium 143
Potassium 3.7
Chloride 99
Carbon Dioxide 33 H
BUN 59 H
Creatinine 1.5 H
Glucose 95
Calcium 9.1
Vital Signs:
Vital Signs
Temp Pulse Resp BP Pulse Ox
97.6 F 88 24 112/65 93
08/08/24 15:37 08/08/24 15:37 08/08/24 15:37 08/08/24 15:37 08/08/24 17:05
I&O
08/07/24 08/08/24 08/09/24
06:59 06:59 06:59
Intake Total 1090 / 1090 480 / 480
Balance 1090 / 1090 480 / 480
Physical Exam
-
General: No Apparent Distress
HEENT: Normocephalic and Atraumatic
Respiratory: Wheezes and Rhonchi
Cardiac: Regular Rhythm
GI: Soft, Nontender and Nondistended
Genito-urinary: No Costovertebral Tender
Musculoskeletal: No Clubbing, No Cyanosis and No Edema
Neuro: Awake, Alert, Oriented and AO x 3
[2024-08-08] MEDS: FLEXERIL 5 MG PO (18:26)
[2024-08-08] MEDS: TYLENOL 650 MG PO (23:14)
[2024-08-08 23:42] VITALS: BP 105/72
[2024-08-09 05:23] VITALS: BMI 32.3
[2024-08-09 07:38] VITALS: BP 138/71
[2024-08-09] MEDS: DUONEB 3 ML INH ×3 (07:48→15:26)
[2024-08-09] MEDS: SYMBICORT 160/4.5 MCG INHALER 2 PUFF INH (07:48)
[2024-08-09] MEDS: LASIX 40 MG PO (08:16)
[2024-08-09] MEDS: DELTASONE 40 MG PO (08:16)
[2024-08-09] MEDS: WELLBUTRIN XL (24 hour extended release) 300 MG PO (08:19)
[2024-08-09] MEDS: LEVAQUIN 250 MG PO (08:19)
[2024-08-09] MEDS: MUCINEX 1200 MG PO (08:19)
[2024-08-09] MEDS: ZOLOFT 100 MG PO (08:19)
[2024-08-09] MEDS: CLARITIN 5 MG PO (08:19)
[2024-08-09] MEDS: HEPARIN 5000 UNITS SC (08:20)
[2024-08-09] MEDS: SUDAFED 12 HOUR (EXTENDED RELEASE) 120 MG PO (08:20)
[2024-08-09] MEDS: DESENEX/MITRAZOL/ZEASORB 1 APPLIC TOPICAL (08:20)
--- NOTE | 2024-08-09 11:18 | W.PN.PUL3 ---
Today's Communication / Plan
-
Continue LVQ dosing for PNA
Encouraged OOB/ambulation, PT/OT
Prednisone taper
Awaiting placement at [facility]
Ok for discharge planning per team
Outpatient FU recommended
Assessment
-
74-year-old obese female with a history of COPD, CHF on chronic oxygen at home presented with mental status changes, back and hip pain, diarrhea and treated with antibiotics, COPD exacerbation and diuretics but continues to have significant
shortness of breath and hypoxemia-pulmonary was consulted for ongoing hypoxemia and shortness of breath 08/04/2024.
UTI
COPD/asthma overlap with acute exacerbation
Pseudomonas PNA
HFpEF exacerbation
Obesity (BMI: 37)
Leukocytosis
Gtxsgi-syufrheyqf-01.2
[place]
Mild hyperglycemia
DNR
Conditions present prior to admission:
Recent hospitalization 01/24/2024-COPD exacerbation
Recent hospitalization 03/19/2024-acute on top of chronic hypoxic respiratory failure CHF and COPD
Recent hospitalization 05/07-CHF, acute on top of chronic back pain, UTI, [place] and COPD
Recent hospitalization-06/22/2024-back pain, chronic hypoxemic respiratory failure, chronic COPD and chronic CHF
Repetitive hospitalizations for COPD exacerbation-December, April, July, August, September 2023
Syncope admission August 2020-found minimally responsive, septic shock, left lower extremity fasciitis requiring mechanical ventilation
s/p extensive surgical debridement and wound VAC for 10 months
COPD/asthma overlap oxygen dependent 2 L-followed by Dr. Roque-maintained on Lina Sexton
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
Active smoker.
Pulmonary nodule-largest 6.7 mm right upper lobe-CT 06/22/2024
Covid illness September 2023
Obstructive sleep apnea/CPAP intolerant.
Chronic heart failure preserved EF.
Moderate mitral regurgitation
Mild aortic stenosis
Moderate aortic regurgitation
Chronic kidney disease stage III.
Anxiety/depression.
Obesity.
Obstructive sleep apnea-previously noncompliant with CPAP-was willing to have repeat PSG and titration-has yet to obtain study
Sciatica.
Prior lumbar fracture.
Left lower extremity fasciitis.
Hyponatremia.
Renal calculi.
Cataract. Carpal tunnel release. Cholecystectomy 1975. Shoulder surgery 1992.
Plan
Respiratory decompensation likely a combination of CHF with preserved EF/valvular disease and advanced COPD-radiographs, echocardiograms, and pulmonary functions over the last several years are summarized below
Supplemental oxygen as needed
BiPAP if needed
Noninvasive ventilation if needed
High flow oxygen if appropriate
Patient is a DNR-not to be intubated
Albuterol nebulizers 4 times daily
Pulmicort nebulizers
Mucolytic's-Mucinex 600 twice daily--increased to 1200 mg twice daily
Solu-Medrol 40 mg IV daily--transitioned to prednisone
Incentive spirometry will be provided
Acapella encouraged and mucus clearing devices
Consider vest if difficulties mobilizing secretions
Consider chest physiotherapy if difficulties mobilizing secretions
Significant eosinophilia in the past-consider adding Biologics with recurrent prednisone requiring exacerbations
Cultures reviewed
Legionella urine antigen negative
Blood cultures negative
Urine culture E. coli and Klebsiella
Empiric antibiotics continue-on Rocephin and azithromycin
Monitor leukocytosis and temperature curve
Now with pseudomonas + sputum, sensitivities reviewed, changed to LVQ
proBNP 3250
Diuresis as tolerated-PO lasix
Monitor renal function, weight, lower extremity edema and electrolytes
Monitor blood sugars
Insulin supplementation as needed
Smoking cessation counseling ongoing
DVT prophylaxis-on subcu heparin
GI prophylaxis recommended if on steroids for prolonged period
Early nutrition
Early mobilization
Reviewed with nursing, respiratory therapy, and primary team.
Last seen by Dr. Wendy Roque 03/22/2024 and subsequently Lisa Riley NP 04/05/2024-will suggest follow-up in the next couple weeks postdischarge-consider adding Biologics with recurrent prednisone requiring exacerbations/asthma component and
significant eosinophilia in the past
Diagnostic data:
Chest x-ray 06/25/22: mild cardiomeg suggestive of elevated pulm venous pressures, no acute evidence of PNA, suspect mild symmetric subpleural inflammatory interstitial pneumonitis.�������
Chest x-ray 05/04/22: cardiomegaly with prominent vascularity suggesting CHF�������
Chest x-ray 01/02/23- No focal interstitial or airspace opacity.�����
Chest x-ray 10/28/2023-NAD
Chest x-ray 01/18/2024-pulmonary vascularity at top normal
Chest x-ray 01/24/2024- Chronic obstructive pulmonary disease; No superimposed acute abnormalities
Chest x-ray 08/01/2024-cephalization with borderline pulmonary edema
CT abdomen and pelvis 01/14/2024-mild atelectasis at lung bases, small bullae left lung base without pneumothorax, no evidence for intestinal obstruction
CT chest 06/22/2024-compression fractures T8, T10, T11, centrilobular emphysema, pulmonary nodules the larger measuring 6.7 mm right upper lobe
US LLE 11/09/19: no evidence of DVT.
Echocardiogram 01/03/23- Low-normal LV function, EF 50%. no significant valvular disease.
Echocardiogram 08/18/2023-EF 50-55%, mild aortic regurgitation
Echocardiogram 04/18/2024-EF 55-60%, moderate mitral regurgitation, mild aortic stenosis-ZACHARIAH 1.5 cm, moderate aortic regurgitation
Gino 06/01/22: FVC 1.63/77%, FEV1 0.98/62%, ratio 60%, no significant BD response. Moderate obstruction and suggestive of mild restrictive pattern.
Spirometry 03/22/24: FEV1 1.17L 52%, FVC 2.23L 75%, ratio 52, post FEV1 1.2L 54%, no BD response (moderate obstruction, stable)��������
Spirometry 01/26/23- FVC 2.03 or 66%, FEV1 1.27 or 55%, Ratio 62%. (moderate obstruction)��������
PFTs 07/02/22: FEV1 1.25L 54%, FVC 2.09L 68%, ratio 60. Post FEV1 1.32L 57%. No significant bronchodilator response. TLC 4.34L 84%, DLCO 50% (moderate obstruction, normal volumes, moderate diffusion impairment)
Subjective Data
-
Date of Service:
Date of Service: August 09, 2024
Chief Complaint: Pulmonary Follow Up and Dyspnea Follow Up
Subjective:
Better this AM, no new events
Daughter at bedside
Objective Data
Data Reviewed
Vital Signs / I&O / Oxygen:
Vital Signs
Temp Pulse Resp BP Pulse Ox
98.6 F 78 18 138/71 96
08/09/24 07:38 08/09/24 07:52 08/09/24 07:52 08/09/24 07:38 08/09/24 07:52
Intake and Output
08/08/24 08/09/24 08/10/24
06:59 06:59 06:59
Intake Total 480 / 480 720 / 720
Balance 480 / 480 720 / 720
SaO2 96
Nasal Cannula flow liters per 2
minute
Physical Exam
General: Respiratory Distress (n) and Comfortable
HEENT: Normocephalic, Anicteric and Moist Mucous Membranes
Cardiovascular: Regular Rhythm
Respiratory: Rhonchi (basilar b/l), Non-Labored Respirations, Accessory Resp Muscle Use (n) and Stridor (n)
GI: Soft, Non Distended and Non Tender
Neurology: Awake, Alert, AO x 3 and No Motor Deficits
Skin: Warm, Good Color, Cyanosis (n), Jaundice (n) and Rash (n)
Labs/Micro/Reports
Lab Data
08/08/24 05:33
08/08/24 05:33
Microbiology
08/01/24 21:22 Sputum Respiratory Culture - Final
Pseudomonas aeruginosa
08/01/24 21:22 Sputum Gram Stain - Final
08/01/24 22:04 Blood/Venous Blood Culture - Final
No Growth - Final Report
08/01/24 20:48 Blood/Venous Blood Culture - Final
No Growth - Final Report
--- NOTE | 2024-08-09 12:14 | CM ---
Addendum entered by Gertrudis Hill 08/09/24 16:35:
[facility]
Report# [phone]

Addendum entered by Gertrudis Hill 08/09/24 15:31:
Met with patient and her daughter at bedside
IMM benefit explained; patient signed form @ 1520
Plan: Discharge to [facility] today; daughter will transport via car to facility
Addendum entered by Gertrudis Hill 08/09/24 14:54:
MARIVEL faxed Financial application to Elvi McphersonValentin @ [employer] @ #[phone]
Originals given back to patient
Original Note:
Per Attending, Patient is stable to return to [facility]. Per Elvi Milligan @ [employer], she did not receive the financial application
CM found financial application for [employer] in patient's room in a bag and gave them to the patient to complete DAVID
Called and asked patient's daughter to assist mother with application completion at bedside; and then deliver them to [facility] DAVID. Daughter agreeable.
Plan: Will return to [employer] once the facility receives the completed financial application
--- NOTE | 2024-08-09 15:18 | W.DS.TRANS ---
DC Summary - Computer [employer]
-
Discharge Instructions:
Sleep Apnea Risk Intermediate
Discharge Diagnosis/Procedures Impression:
Presentation with UTI and clinical sepsis.
COPD/asthma exacerbation
CHF preserved EF exacerbation
Other conditions:
Chronic hypoxic respiratory failure on home O2.
COPD/asthma
CHF preserved EF
Mild to moderate aortic stenosis/moderate mitral
regurgitation
Anemia of chronic disease.
Chronic kidney disease stage IIIb.
Compression fractures
Osteoporosis
Anxiety/depression
Diet 2 Gram Sodium
Instructions:
Stand-Alone Forms:
Changes to Home Medications: Yes
Discharge Medications:
DC Medications w/original date entered in [facility]
albuterol sulfate 90 mcg/actuation aerosol inhaler 2 puff inhalation R Q4HPRN PRN sob/wheezing 12/29/22
loratadine 5 mg-pseudoephedrine ER 120 mg tablet,extended release,12hr (Claritin-D 12 Hour) 1 tab PO BID Allergies 12/29/22
bupropion HCl 300 mg 24 hr tablet, extended release 300 mg PO DAILY Depression 07/19/23
budesonide 160 mcg-glycopyr 9 mcg-formot 4.8 mcg/actuation HFA inhaler (Breztri Aerosphere) 2 inh inhalation R BID Lung/Breathing Issues 01/18/24
furosemide 40 mg tablet 40 mg PO DAILY Fluid Retention/Swelling 02/20/24
albuterol sulfate 2.5 mg/3 mL (0.083 %) solution for nebulization 2.5 mg inhalation R QID Lung/Breathing Issues 04/17/24
acetaminophen 500 mg tablet (Tylenol Extra Strength) 1,000 mg PO BID Pain 06/22/24
melatonin 5 mg tablet 10 mg PO HSPRN PRN sleep 06/22/24
ondansetron 4 mg disintegrating tablet 4 mg PO BIDPRN PRN nausea/vomiting 06/22/24
cyclobenzaprine 5 mg tablet 5 mg PO TIDPRN PRN muscle spasms 08/01/24
guaifenesin 600 mg tablet, extended release 12 hr 600 mg PO Q12H Lung/breathing issues 08/01/24
sertraline 100 mg tablet 100 mg PO DAILY Depression 08/01/24
guaifenesin 600 mg tablet, extended release 12 hr 1,200 mg (2 x 600 mg) PO Q12 #90 tabs 08/09/24
levofloxacin 250 mg tablet 250 mg PO DAILY #13 tabs 08/09/24
oxycodone 5 mg tablet 5 mg PO Q6HPRN PRN severe pain #10 tabs 08/09/24
prednisone 10 mg tablet 10 mg PO DIRECTED #30 tabs 08/09/24
Home Medication Changes
Steroid taper.
Completing 2 weeks of levofloxacin for pseudomonal bronchitis
Pending Results: No
[2024-08-09 15:34] VITALS: BP 133/66
== END 2024-08-09 17:06 | DRG 871 ==
LOC: 3 WEST ACU 20:23
PROVIDERS: Emergency Medicine; Internal Medicine; Physician Assistant; Registered Nurse; ADMITTING PHYSICIAN Student in an Organized Health Care Education/Training Program; ATTENDING PHYSICIAN Internal Medicine; CONSULT PHYSICIAN Internal Medicine Critical Care Medicine; EMERGENCY PHYSICIAN Emergency Medicine; FAMILY PHYSICIAN Family Medicine
DX: A41.59 Other Gram-negative sepsis (principal); I50.33 Acute on chronic diastolic (congestive) heart failure; J96.21 Acute and chronic respiratory failure with hypoxia; J15.1 Pneumonia due to Pseudomonas; J44.1 Chronic obstructive pulmonary disease with (acute) exacerbation; J45.901 Unspecified asthma with (acute) exacerbation; Z66 Do not resuscitate; I13.0 Hypertensive heart and chronic kidney disease with heart failure and stage 1 through stage 4 chronic kidney disease, or unspecified chronic kidney disease; M80.08XA Age-related osteoporosis with current pathological fracture, vertebra(e), initial encounter for fracture; N17.9 Acute kidney failure, unspecified; E87.1 Hypo-osmolality and hyponatremia; J44.0 Chronic obstructive pulmonary disease with (acute) lower respiratory infection; N39.0 Urinary tract infection, site not specified; N18.32 Chronic kidney disease, stage 3b; G47.33 Obstructive sleep apnea (adult) (pediatric); F32.A Depression, unspecified; F41.9 Anxiety disorder, unspecified; E87.6 Hypokalemia; D63.1 Anemia in chronic kidney disease; E66.9 Obesity, unspecified; R73.9 Hyperglycemia, unspecified; R32 Unspecified urinary incontinence; N28.1 Cyst of kidney, acquired; N20.0 Calculus of kidney; K80.20 Calculus of gallbladder without cholecystitis without obstruction; I08.0 Rheumatic disorders of both mitral and aortic valves; L89.621 Pressure ulcer of left heel, stage 1; L89.611 Pressure ulcer of right heel, stage 1; Z86.16 Personal history of COVID-19; Z88.0 Allergy status to penicillin; Z79.899 Other long term (current) drug therapy; Z99.81 Dependence on supplemental oxygen; Z79.52 Long term (current) use of systemic steroids; Z68.32 Body mass index [BMI] 32.0-32.9, adult; Z96.659 Presence of unspecified artificial knee joint; Z87.440 Personal history of urinary (tract) infections; Z87.891 Personal history of nicotine dependence; Z11.52 Encounter for screening for COVID-19
CPT/HCPCS: 36600; 71045; 74176; 80048; 80053; 81003; 81015; 82805; 83605; 83735; 83880; 85025; 85027; 87040; 87070; 87077; 87086; 87088; 87186; 87205; 87449; 87811; 93005; 94640; 96361; 96374; 96375; 97116; 97163; 97167; 97530; 97535; 99285

== ENCOUNTER → 2024-08-14 11:01 | Outpatient (REF) | payer MEDICARE, SELFPAY ==
[2024-08-14 12:05] LABS: % Basophils 0.2 % (0-2); % Eosinophils 0.3 % (0-6); % Immature Granulocytes 2.4 % (0-0.5); % Lymphocytes 12.5 % (20.5-51.1); % Monocytes 7.9 % (1.7-9.3); % Neutrophils 76.7 % (42.2-75.2); Absolute Eosinophils 0.1 10^3/uL (0-0.7); Absolute Immature Granulocytes 0.5 10^3/uL (0-0.05); Absolute Lymphocytes 2.4 10^3/uL (1.2-3.4); Absolute Monocytes 1.5 10^3/uL (0.1-0.6); Absolute Neutrophils 14.7 10^3/uL (1.4-6.5); Hemoglobin 11.6 g/dL (12.0-16.0); Mean Corp Hgb Conc. 31.4 g/dL (33.0-37.0); Mean Corpuscular Hgb 28.5 pg (27.0-31.0); Mean Corpuscular Volume 90.9 fL (81.0-99.0); Mean Platelet Volume 10.1 fL (7.4-10.4); Nucleated Red Blood Cells % 0 %; Platelet Count 302 10^3/uL (130-400); Red Blood Cell Count 4.07 10^6/uL (4.20-5.40); Red Cell Dist. Width 15.8 % (11.5-14.5); White Blood Cell Count 19.1 10^3/uL (4.8-10.8)
[2024-08-14 12:10] LABS: Blood Urea Nitrogen 52 mg/dl (7-17); Calcium 9.1 mg/dl (8.4-10.2); Carbon Dioxide 36 mmol/L (22-30); Chloride 96 mmol/L (98-107); Glucose 73 mg/dl (70-99); Potassium 4.6 mmol/L (3.5-5.1); Sodium 140 mmol/L (135-145)
== END ==
LOC: OLABP 11:01
PROVIDERS: ATTENDING PHYSICIAN Family Medicine
DX: I50.31 Acute diastolic (congestive) heart failure (principal); J44.1 Chronic obstructive pulmonary disease with (acute) exacerbation
CPT/HCPCS: 36415; 80048; 85025

== ENCOUNTER 2024-10-05 19:36 | Emergency (ER) | payer MEDICARE, SELFPAY ==
[2024-10-05 19:52] VITALS: BP 122/70
[2024-10-05 19:53] VITALS: BP 122/70; BMI 29.4
[2024-10-05 20:00] VITALS: BP 122/59
[2024-10-05 20:24] LABS: % Basophils 0.1 % (0-2); % Immature Granulocytes 0.8 % (0-0.5); % Lymphocytes 2.9 % (20.5-51.1); % Monocytes 3.3 % (1.7-9.3); % Neutrophils 92.9 % (42.2-75.2); Absolute Immature Granulocytes 0.1 10^3/uL (0-0.05); Absolute Lymphocytes 0.4 10^3/uL (1.2-3.4); Absolute Monocytes 0.5 10^3/uL (0.1-0.6); Absolute Neutrophils 13.3 10^3/uL (1.4-6.5); Hematocrit 39.6 % (37.0-47.0); Mean Corp Hgb Conc. 30.3 g/dL (33.0-37.0); Mean Corpuscular Hgb 30.8 pg (27.0-31.0); Mean Corpuscular Volume 101.5 fL (81.0-99.0); Mean Platelet Volume 9.8 fL (7.4-10.4); Nucleated Red Blood Cells % 0 %; Platelet Count 339 10^3/uL (130-400); Red Cell Dist. Width 16.4 % (11.5-14.5); White Blood Cell Count 14.3 10^3/uL (4.8-10.8)
--- NOTE | 2024-10-05 20:30 | ED.GENMED ---
History of Present Illness
General
Chief Complaint: Breathing Problem
Source: patient
Exam Limitations: none
Time Seen by Provider: 10/05/24 20:08
Nursing documentation reviewed up to this point in time: agreed with
History of Present Illness
History of Present Illness:
Patient with history of congestive heart failure on Lasix and oxygen dependent COPD (3 L via nasal cannula), presents to ED secondary to worsening shortness of breath with intermittent cough over the past 5 days. Patient was evaluated by home care
nurse this afternoon who advised patient come to ED for an evaluation. Patient does state that her symptoms are similar to July when she was admitted to the hospital and treated for pneumonia, with pain in her back with cough. Denies nausea,
vomiting, or diarrhea. Denies weight gain. Denies leg pain or swelling. Denies recent travel or surgery. Patient does live in a household, where there are number of grandchildren who currently have cold-like symptoms.
Past History
Past History
ED Past Medical History: CHF, COPD (2-3 liters NC), Psychiatric (Anxiety, Depression, ) and Other (Spinal stenosis, morbid obesity, Bilateral kidney stones, Ulcers, Sleep apnea, )
ED Past Surgical History: Cholecystectomy, Orthopedic (Left shoulder reconstruction. ), Urological (Kidney surgery) and Other (Fasciotomy for fasciitis with wound VAC of lower back and thigh)
Social History
Tobacco: Former smoker
Alcohol: None
Drug: None
Personal:
Living: with family
Employment: Retired
Family History
Family History: Other (Noncontributory)
Review of Systems
Review of Systems
Allergies reviewed?: Yes
All Other Systems: ROS reviewed and negative except as documented in HPI and ROS
Constitutional: Reports no symptoms
EENT: Reports no symptoms
Respiratory: Reports cough and trouble breathing
Cardiac: Reports no symptoms
ABD/GI: Reports no symptoms
Musculoskeletal: Reports no symptoms
Skin: Reports no symptoms
Neurological: Reports no symptoms
Phy Exam
Physical Exam
Physical Exam:
Physical Exam
General: mild respiratory distress, not acutely ill. overweight. afebrile.
Head: nc/at. eomi
Neck: supple. no meningeal signs. normal posterior pharynx
Heart: s1/s2 regular rate and rhythm, no murmur. equal radial pulses.
Lungs: mild respiratory distress. diffuse expiratory wheezing noted bilaterally
Abdomen: normal bowel sounds. not tender.
Neuro: alert and oriented. no focal neurological deficits
Skin: no rash
Psychiatric: well kept. interactive and cooperative
Extremities: no edema. no calf tenderness.
Scores
Heart Failure Risk
Heart Failure Risk Score: Not Applicable
Course
Orders/Labs/Results
Orders:
Orders
10/05/24 19:55
Electrocardiogram (*1) Urgent
Reason for Study: Other
Other Reason for Exam: Respiratory Distress
Cardiac Monitoring- Treatment ONCE
EKG- Treatment ONCE
IV Insert/Care/Rem.- Treatment PRN
CR Chest - 2 Views Urgent
Comment:
Reason For Exam: respiratory distress
O2 Therapy [RESP] Urgent
Titrate/Wean O2 to maintain O2 sat greater than (%): 93
Special Instructions: TO MAINTAIN CONTINUOUS O2 SATS >/= 93%
Pulse Ox/cont/shift [RESP] Urgent
Quantity: 1
Special Instructions: continuous pulse ox
10/05/24 20:07
Complete Blood Count/With Diff Urgent
Comprehensive Metabolic Panel Urgent
NT-proBNP Urgent
Troponin I Urgent
10/05/24 20:13
Dexamethasone Sod Phosphate [Decadron] 6 mg IV NOW STA
Ipratropium/Albuterol Sulfate [Duoneb] 3 ml INH R NOW STA
10/05/24 21:15
Acetaminophen [Tylenol] 650 mg PO NOW STA
Cyclobenzaprine HCl [Flexeril] 10 mg PO NOW STA
10/05/24 21:16
Azithromycin 500 mg/250 ml [Zithromax Infusion] 500 mg in 250 ml IV NOW
10/05/24 22:02
Urinalysis Reflex To Culture Urgent
Date Specimen was Collected: 10/05/24
Time Specimen was Collected: 22:01
Abnormal Lab Results
10/05/24
20:07
WBC 14.3 H 10^3/uL
(4.8-10.8)
RBC 3.90 L 10^6/uL
(4.20-5.40)
MCV 101.5 H fL
(81.0-99.0)
MCHC 30.3 L g/dL
(33.0-37.0)
RDW 16.4 H %
(11.5-14.5)
Abs Immat Gran (auto) 0.1 H 10^3/uL
(0-0.05)
Absolute Neuts (auto) 13.3 H 10^3/uL
(1.4-6.5)
Absolute Lymphs (auto) 0.4 L 10^3/uL
(1.2-3.4)
Immature Gran % 0.8 H %
(0-0.5)
Neutrophils % 92.9 H %
(42.2-75.2)
Lymphocytes % 2.9 L %
(20.5-51.1)
BUN 33 H mg/dl
(7-17)
Creatinine 1.6 H mg/dL
(0.6-1.0)
Glucose 146 H mg/dl
(70-99)
Troponin I 0.040 H* ng/ml
10/05/24 20:07
10/05/24 20:07
Vital Signs
Initial and Last Documented VS:
Initial Vital Signs
Resp
28
10/05/24 19:40
Last Documented Vital Signs
Temp Pulse Resp BP Pulse Ox
97.8 F 95 22 144/72 96
10/05/24 19:53 10/05/24 21:45 10/05/24 21:45 10/05/24 21:11 10/05/24 21:45
MDM/Problems Addressed
MDM/Problems Addressed:
History and exam consistent with likely an acute bronchitis with wheezing. However, difficult to exclude potential fluid overload, with increased BNP level, despite steady weight. Discussed treatment options with patient and her daughter, who
lives with the patient. At this time, as patient is already on Zithromax along with prednisone, would like to be discharged home and continue treatment. Patient will return to ED with worsening symptoms, which I believe is reasonable, especially as
patient already has home visiting nurse evaluation set up tomorrow.
*EKG
Interpreted by ED Provider?: Yes
EKG Intrepretation Date: 10/05/24
Heart Rate: 102
Rate: tachycardiac
Rhythm: sinus
[place]: normal axis
*Critical Care Note
Total Time (30-74mins, 75-104mins- exclusive of procedures): Not Applicable
ED Attending Note
-
Portions of this chart may have been created with voice recognition software.� Occasional wrong word or��sound alike� substitutions may have occurred due to the inherent limitations of voice recognition software.
Discharge Plan
Departure
Patient Disposition: Home (Routine Discharge)
Date of Disposition: 10/05/24
Time of Disposition: 21:20
Patient with high blood pressure during this ER visit?: Yes
Discharge Problem:
Acute bronchitis
Instructions: Acute Bronchitis, Adult (DC)
Prescriptions:
No Action
Claritin-D 12 Hour 5-120 mg Tablet Extended Release 12 Hr
1 tab PO BID
albuterol sulfate 90 mcg/actuation HFA aerosol inhaler
2 puff INHALATION R Q4HPRN PRN (Reason: sob/wheezing)
bupropion HCl 300 mg tablet extended release 24 hr
300 mg PO DAILY
Breztri Aerosphere 160-9-4.8 mcg/actuation HFA aerosol inhaler
2 inh INHALATION R BID
furosemide 40 mg tablet
40 mg PO DAILY
albuterol sulfate 2.5 mg /3 mL (0.083 %) Solution For Nebulization
2.5 mg INHALATION R QID
acetaminophen [Tylenol Extra Strength] 500 mg tablet
1,000 mg PO BID
melatonin 5 mg tablet
10 mg PO HSPRN PRN (Reason: sleep)
sertraline 100 mg Tablet
100 mg PO DAILY
cyclobenzaprine 5 mg tablet
5 mg PO TIDPRN PRN (Reason: muscle spasms)
guaifenesin 600 mg tablet extended release 12hr
600 mg PO Q12H
prednisone 10 mg tablet
10 mg PO DIRECTED Qty: 30 0RF
Rx Instructions:
Start from 30mg daily and decrease by 10mg on every 4th day.
oxycodone 5 mg Tablet
5 mg PO Q6HPRN PRN (Reason: severe pain) Qty: 10 0RF
Patient Comments:
08/01/24: last filled 06/27/24 for 30 tablets over 8 days.
Referrals:
UNKNOWN - PT DOES,NOT KNOW [Family Provider] -
Activity Restrictions/Additional Instructions:
As discussed, continue to take already prescribed antibiotics as well as prednisone. Please consider returning to ED with worsening symptoms.
Interventions
Interventions:
*Risk Screen - Suicide Last Done: 10/05/24 19:40
*General Assessment Last Done: 10/05/24 19:56
*Neglect/Abuse Screening Last Done: 10/05/24 19:56
ED- Fall Risk Assessment Last Done: 10/05/24 22:42
*ED COVID-19 Vaccine History Last Done: 10/05/24 19:56
*Nursing Disposition Last Done: 10/05/24 22:42
ED- Cardiac Assessment Last Done: 10/05/24 20:00
ED- Pulmonary Assessment Last Done: 10/05/24 20:00
Discharge Date and Time
Discharge Date/Time: 10/05/24 22:42
Print Language: SETSWANA
[2024-10-05] MEDS: DECADRON 6 MG IV (20:31)
[2024-10-05] MEDS: DUONEB 3 ML INH (20:32)
[2024-10-05 20:36] LABS: ALT (SGPT) 17 U/L (0-35); AST (SGOT) 20 U/L (14-36); Alkaline Phosphatase 94 U/L (38-126); Blood Urea Nitrogen 33 mg/dl (7-17); Calcium 9.3 mg/dl (8.4-10.2); Carbon Dioxide 26 mmol/L (22-30); Chloride 100 mmol/L (98-107); Estimated Creatinine Clearance 36 ml/min; Glucose 146 mg/dl (70-99); Potassium 4.4 mmol/L (3.5-5.1); Sodium 142 mmol/L (135-145); Total Bilirubin 0.4 mg/dl (0.2-1.3); Total Protein 6.5 g/dl (6.3-8.2); eGFR 33.63
[2024-10-05 20:49] LABS: NT-proBNP 12900 pg/ml
[2024-10-05 21:11] VITALS: BP 144/72
--- NOTE | 2024-10-05 21:29 | HPS.HSE ---
Family Physician
-
Family Physician: NOT KNOW UNKNOWN - PT DOES
Chief Complaint
History of Present Illness
74-year-old female complaining of shortness of breath with intermittent cough over the past 5 days. She had a home care nurse today advised her to come to the ER for evaluation. She was admitted to [facility] in July and treated for
pneumonia. She reports her shortness of breath feels the same as her admission prior. She reports she lives with multiple family members including lots of grandchildren who currently have cold-like symptoms. She denies headache, sore throat,
fever, chills, chest pain, palpitations, abdominal pain, nausea, vomiting, diarrhea, weight gain, leg edema . She has past medical history of COPD 2 to 3 L nasal cannula dependent, CHF, anxiety, depression, spinal stenosis, CKD 3B, renal calculi,
gastric ulcers, sleep apnea, history of prior fasciitis status post fasciotomy with wound VAC of lower back and thigh, multiple compression deformities of the mid/lower thoracic spine
Impression/plan:
Admit to telemetry
Acute dyspnea
BNP 12,900
WBC 14.3 with left shift, 90 7.8F, HR 97, 144/72
CXR: No acute cardiopulmonary abnormality
2D echo 04/18/2024: EF 55-60%. No wall abnormality, mild to moderate MR, mild aortic stenosis, moderate AR (progression from mild to moderate August 2023 to present)
Nonischemic myocardial injury
Hx elevated troponins
Troponin 0.040 will trend
EKG: Sinus tach 102 bpm, QTc 479 MS no significant change from 08/09/2024
COPD 2 to 3 L nasal cannula dependent
Chronic CHF
I/O, daily weights
CKD 3B
Anxiety/ Depression
gastric ulcers
Sleep apnea
spinal stenosis
Other PMH:
renal calculi
history of prior fasciitis status post fasciotomy with wound VAC of lower back and thigh
Multiple compression deformities of the mid/lower thoracic spine
Medical History
Past Medical History
Past Medical History: Reports Other
Additional Past Medical History:
CHF
COPD 2�3 liters dependent
CKD 3B
Sleep apnea
Gallstones
Kidney stones
Bronchitis
Hypertension
Gastric ulcers
Anxiety
Depression
Carpal tunnel release
Spinal stenosis
Mid/lower multiple compression fractures
history of prior fasciitis status post fasciotomy with wound VAC of lower back and thigh,
Past Surgical History: Reports Other
Additional Past Surgical History:
Shoulder surgery
Knee replacement
history of prior fasciitis status post fasciotomy with wound VAC of lower back and thigh,
Social History
Tobacco: Former Smoker
Alcohol: None
Drug: None
Living: With Family
Family History
Family History: Not pertinent
Allergies / Home Medications
Allergies reflects when Allergies were last updated in [employer].
Home Medications with original date entered in [employer]
Physical Exam
Vital Signs
Vital Signs
Temp Pulse Resp BP Pulse Ox
97.8 F 97 27 144/72 96
10/05/24 19:53 10/05/24 21:15 10/05/24 21:15 10/05/24 21:11 10/05/24 21:15
Laboratory Results
-
10/05/24 20:07
10/05/24 20:07
Laboratory Results
Total Bilirubin 0.4 mg/dl (0.2-1.3) 10/05/24 20:07
AST 20 U/L (14-36) 10/05/24 20:07
ALT 17 U/L (0-35) 10/05/24 20:07
Alkaline Phosphatase 94 U/L (38-126) 10/05/24 20:07
Troponin I 0.040 ng/ml H* 10/05/24 20:07
Impression/Plan
-
IMPRESSION:
PLAN:
--- NOTE | 2024-10-05 21:31 | W.PN.UPDATE ---
Update Note
Progress Note Update
Patient seen in conjunction with GOLF CART REPAIRER. I agree with the findings on history and physical. I concur with the assessment and plan unless stated otherwise.
Briefly, this is an 74-year-old female with past medical history significant for COPD on 2 to 3 L home O2, CHF with preserved EF, last echo in April shows EF of 55 to 60% with moderate AR mild to moderate MR which appears to have progressed from
prior a year before that. She has history of continued tobacco smoking and obstructive sleep apnea. She was last admitted about 2 months ago with UTI and COPD exacerbation requiring antibiotics and steroid taper. She now comes in with progressive
dyspnea on exertion and shortness of breath. Denies nausea, vomiting, or diarrhea. Denies weight gain. Denies leg pain or swelling. Denies recent travel or surgery. Patient does live in a household, where there are number of grandchildren who
currently have cold-like symptoms.
No fevers or chills.
Initial vitals in the ED shows a temp of 37.8, blood pressure 144/72, 96% pulse ox on 3 L. Chest x-ray shows cephalization similar to prior but no focal consolidation or infiltrates. ECG showed sinus tachycardia unchanged from prior and no acute
ischemia. Troponin was 0.04. CBC is similar to prior with white count of 14.3 which is down from prior hemoglobin of 12 and platelet of 339. Electrolytes BUN/creatinine notable for a creatinine of 1.6 (which is her baseline) but otherwise
unremarkable.
Assessment and plan:
Patient with history of chronic hypoxic respiratory decompensation with COPD and CHF with preserved EF who presents with progressive respiration counts including cough shortness of breath and dyspnea on exertion over the last 5 days. Here with
slight increase in oxygen requirement, mild pulm edema but no other physical evidence of volume overload, has elevated trop [place] 0[place]04 [place] [id number]. Multiple sick contacts at home. Negative screening for COVID and flu. History c/w COPD
exacerbation. Elevated BNP suggests likely component of CHF exacerbation which raises concern for more symptomatic Aortic insufficiency.
- admit to telemetry
- treat aggressively for COPD exacerbation, solumedrol 40 iv q 12 and taper. Azithromycin IV, nebs RTC and prn
- no evidence of significant CO2 retention so will hold off on NIPPV at this time
- CPAP HS
CHF - elevated bnp and troponin, possibly triggered by COPD exacerbation, unlikley ACS
- telemetry
- trend enzymes, give asa 324 once now,
- lasix 40 iv bid and monitor daily weights and creatinine, will back off if creatinine increases
- cardiology consultation
[2024-10-05] MEDS: FLEXERIL 10 MG PO (21:56)
[2024-10-05] MEDS: TYLENOL 650 MG PO (21:56)
[2024-10-05 22:07] LABS: Urine Albumin Negative (Neg - Trace); Urine Bilirubin Negative (Negative); Urine Character Clear (Clear); Urine Color Yellow; Urine Glucose Negative (Negative); Urine Ketone Negative (Negative); Urine Leukocyte Negative (Negative); Urine Nitrite Negative (Negative); Urine Occult Blood Negative (Negative); Urine Urobilinogen Negative (Neg - 1+)
== END 2024-10-05 22:42 | disposition home or self-care (01) ==
LOC: EMR 19:36
PROVIDERS: EMERGENCY PHYSICIAN Emergency Medicine
DX: J44.0 Chronic obstructive pulmonary disease with (acute) lower respiratory infection (principal); I50.9 Heart failure, unspecified; F41.8 Other specified anxiety disorders; E66.01 Morbid (severe) obesity due to excess calories; G47.30 Sleep apnea, unspecified; Z87.442 Personal history of urinary calculi; Z87.891 Personal history of nicotine dependence; Z90.49 Acquired absence of other specified parts of digestive tract; Z99.81 Dependence on supplemental oxygen
CPT/HCPCS: 99283; 71046; 80053; 81003; 83880; 84484; 85025; 93005

== ENCOUNTER 2024-10-08 23:46 | Inpatient (IN) | payer MEDICARE, SELFPAY ==
[2024-10-08 20:14] VITALS: BP 134/77
[2024-10-08 20:30] VITALS: BP 135/80
--- NOTE | 2024-10-08 20:36 | ED.GENMED ---
Addendum entered and electronically signed by JOSEFINA Lundy 10/09/24 00:06:
Repeat ECG: rate 99, NSR, Normal axis. Normal QRS, negative for ischemia.
Original Note:
History of Present Illness
General
Chief Complaint: Breathing Problem
Source: patient
Exam Limitations: none
Time Seen by Provider: 10/08/24 20:23
History of Present Illness
History of Present Illness:
This is a 74 year old female that comes in with c/o SOB. States that she feels that her abd is filling up with fluid. States that this increased SOB started this morning. States that she has been nauseated, vomiting once due to coughing. States that
she also felt dizzy. Denies any fever, chills, chest pain, abd pain, diarrhea, headache, urinary burning.
Past History
Past History
ED Past Medical History: CHF, COPD (2-3 liters NC), Psychiatric (Anxiety, Depression, ) and Other (Spinal stenosis, morbid obesity, Bilateral kidney stones, Ulcers, Sleep apnea, Shingles, )
ED Past Surgical History: Cholecystectomy, Orthopedic (Left shoulder reconstruction. ), Urological (Kidney surgery) and Other (Fasciotomy for fasciitis with wound VAC of lower back and thigh)
Social History
Tobacco: Former smoker
Alcohol: None
Drug: None
Personal:
Living: alone
Employment: Retired
Family History
Family History: Other (Noncontributory)
Review of Systems
Review of Systems
All Other Systems: ROS reviewed and negative except as documented in HPI and ROS
Constitutional: Reports no symptoms; Denies fever or chills
EENT: Reports no symptoms
Respiratory: Reports cough and trouble breathing
Cardiac: Denies chest pain
ABD/GI: Reports nausea and vomiting; Denies abdominal pain or diarrhea
: Reports no symptoms; Denies dysuria, frequency or urgency
Musculoskeletal: Reports no symptoms
Skin: Reports no symptoms
Neurological: Reports dizzy; Denies headache
Psychiatric: Reports no symptoms
Phy Exam
General Physical Exam
General Presentation: mild distress
General age: appears stated age
General Skin: warm and dry
General Habitus: elderly
General Mental: alert
General Hydration: appears well hydrated
ENT Exam
ENT Exam: TM's normal, pharynx normal and neck supple
Eye Exam
Eye Exam: EOMI
Cardiovascular Exam
Cardiovascular Exam: no edema, normal peripheral pulses and tachycardia
Pulmonary Exam
Pulmonary Exam: chest non tender, no rhonchi, decreased breath sounds and other (Fine crackles at bases with Exp wheezing throughout)
Gastrointestinal Exam
Gastrointestinal Exam: normal bowel sounds, non tender, soft, no organomegaly, no pulsatile mass and non distended
Musculoskeletal Exam
Musculoskeletal Exam: full ROM and no edema
Skin Exam
Skin Exam: normal color, warm/dry, no rash, no petechia and other (Contusion noted on the lower legs)
Psychiatric Exam
Psychiatric Exam: normal mood/affect
Scores
Heart Failure Risk
Heart Failure Risk Score: Yes
History of Stroke or TIA: No
History of intubation for respiratory distress: No
Heart rate on ED arrival >/= 110: Yes
SaO2 <90% on arrival on room air: Yes
HR >/=110 during 3min walk test (or too ill to perform test): Yes
ECG has acute ischemic changes: No
Urea >/=12mmol/L (BUN 33.6mg/dL): Yes
Serum CO2>/=35mmol/L: No
Troponin I or T elevated to IN Level (0.4mg/dL): Yes
NT-proBNP >/=5,000ng/L (5,000pg/ml): Yes
HF Risk Score: 7
Admission Status: VERY HIGH RISK 69.8% Consider admission to hospital
Course
Orders/Labs/Results
Orders:
Orders
10/08/24 20:20
Electrocardiogram (*1) Urgent
Reason for Study: Shortness of Breath
EKG- Treatment ONCE
10/08/24 20:36
Dexamethasone Sod Phosphate [Decadron] 10 mg IV NOW STA
Ipratropium/Albuterol Sulfate [Duoneb] 3 ml INH R NOW ONE
CR Chest - 2 Views Urgent
Comment:
Reason For Exam: SOB
10/08/24 20:56
Complete Blood Count/With Diff Urgent
Comprehensive Metabolic Panel Urgent
Pro-BNP [NT-proBNP] Urgent
Troponin I Urgent
10/08/24 22:32
EKG- Treatment ONCE
10/08/24 22:43
Furosemide [Lasix] 20 mg IV NOW STA
10/08/24 23:55
Electrocardiogram (*1) Urgent
Reason for Study: Shortness of Breath
Other Reason for Exam: Repeat with Troponin
Troponin I Urgent
Abnormal Lab Results
10/08/24
20:56
WBC 17.2 H 10^3/uL
(4.8-10.8)
RBC 3.71 L 10^6/uL
(4.20-5.40)
Hgb 11.5 L g/dL
(12.0-16.0)
MCV 100.5 H fL
(81.0-99.0)
MCHC 30.8 L g/dL
(33.0-37.0)
RDW 16.0 H %
(11.5-14.5)
Abs Immat Gran (auto) 0.1 H 10^3/uL
(0-0.05)
Absolute Neuts (auto) 15.2 H 10^3/uL
(1.4-6.5)
Absolute Lymphs (auto) 0.7 L 10^3/uL
(1.2-3.4)
Absolute Monos (auto) 1.2 H 10^3/uL
(0.1-0.6)
Immature Gran % 0.7 H %
(0-0.5)
Neutrophils % 88.4 H %
(42.2-75.2)
Lymphocytes % 3.8 L %
(20.5-51.1)
Carbon Dioxide 31 H mmol/L
(22-30)
BUN 39 H mg/dl
(7-17)
Creatinine 1.5 H mg/dL
(0.6-1.0)
Troponin I 0.090 H* ng/ml
10/08/24 20:56
10/08/24 20:56
Leukocytosis, Hgb slightly low. chronic Renal insufficiency, Troponin elevation at 0.090 Pro-BNP 12,300
Vital Signs
Initial and Last Documented VS:
Initial Vital Signs
Temp Pulse Resp BP Pulse Ox
97.7 F 113 20 134/77 86
10/08/24 20:14 10/08/24 20:14 10/08/24 20:14 10/08/24 20:14 10/08/24 20:14
Last Documented Vital Signs
Temp Pulse Resp BP Pulse Ox
97.7 F 100 24 124/75 98
10/08/24 20:14 10/08/24 22:00 10/08/24 22:00 10/08/24 22:00 10/08/24 22:12
MDM/Problems Addressed
Differential Diagnosis Includes:
COPD exacerbation. CHF
MDM/Problems Addressed:
This is a 74 year old female that comes in with c/o increased SOB. States that her abd also feels like she is retaining fluid.
Will check labs, get Chest x-ray, give Duo neb and given IV steroids
Back into see patient. Explained that she would be admitted as her Troponin and Pro-BNP are elevated. Patient chest x-ray appears to have increased vascular congestion. Will admit. Hospitalist notified.
Chronic conditions affecting care: COPD and Other (CHF)
Acute Exacerbation and/or Progression of Chronic Illness: COPD and Other (CHF)
*Radiology
Radiology exam reviewed: preliminary read by ED provider (Chest- Increased vascular congestion), radiology read reviewed (Chest- Diminished degree of inspiration likely contributing to generalized prominence of bronchovascular markings. Central
pulmonary vasculature is prominent, though unchanged, and could suggest an element of chronic passive venous congestion. However, no other findings to suggest congestive heart ) and other (Chest cont- failure or Pneumonia. )
*Pulse Oximetry
Patient hypoxic: yes
Comment: 86% on room air on arrival
*EKG
Interpreted by ED Provider?: Yes
*Bag Adjuster Interpretation
Rate: tachycardiac
Heart Rate: 110
Rhythm: sinus tachycardia
*Critical Care Note
Total Time (30-74mins, 75-104mins- exclusive of procedures): Not Applicable
ED Attending Note
-
Portions of this chart may have been created with voice recognition software.� Occasional wrong word or��sound alike� substitutions may have occurred due to the inherent limitations of voice recognition software.
Discharge Plan
Departure
Patient Disposition: Admit
Date of Disposition: 10/08/24
Time of Disposition: 22:48
Admit to: Telemetry
Presentation/result/management discussed w/ accepting MD/DO: Hospitalist
Patient with high blood pressure during this ER visit?: Yes
Condition: Good
Covid-19: Not Applicable
Discharge Problem:
SOB (shortness of breath), Increased vascular congestion
Prescriptions:
No Action
albuterol sulfate 90 mcg/actuation HFA aerosol inhaler
2 puff INHALATION R Q4HPRN PRN (Reason: sob/wheezing)
bupropion HCl 300 mg tablet extended release 24 hr
300 mg PO DAILY
Breztri Aerosphere 160-9-4.8 mcg/actuation HFA aerosol inhaler
2 inh INHALATION R BID
furosemide 40 mg tablet
20 mg PO DAILY
albuterol sulfate 2.5 mg /3 mL (0.083 %) Solution For Nebulization
2.5 mg INHALATION R Q4HPRN PRN (Reason: sob)
acetaminophen [Tylenol Extra Strength] 500 mg tablet
1,000 mg PO BID
melatonin 5 mg tablet
10 mg PO HSPRN PRN (Reason: sleep)
sertraline 100 mg Tablet
100 mg PO DAILY
cyclobenzaprine 5 mg tablet
5 mg PO TIDPRN PRN (Reason: muscle spasms)
guaifenesin 600 mg tablet extended release 12hr
600 mg PO Q12H
oxycodone 5 mg Tablet
5 mg PO Q6HPRN PRN (Reason: severe pain) Qty: 10 0RF
azithromycin [Zithromax] 250 mg tablet
250 mg PO DAILY Qty: 6 0RF
Patient Comments:
10/08/24: Patient has 2 doses left
methylprednisolone 4 mg Tablets,Dose Pack
0 mg PO PER PKG DIR
Patient Comments:
10/08/24: Patient has 3 doses left
loratadine [Claritin] 10 mg Tablet
10 mg PO DAILY
prednisone 10 mg tablet
10 mg PO DAILY
Referrals:
Ant Diaz DO [Family Provider] -
Interventions
Interventions:
*Risk Screen - Suicide Last Done: 10/08/24 20:14
*General Assessment Last Done: 10/08/24 20:14
*Neglect/Abuse Screening Last Done: 10/08/24 20:14
ED- Fall Risk Assessment Last Done: 10/08/24 22:12
ED- Cardiac Assessment Last Done: 10/08/24 22:12
ED- Pulmonary Assessment Last Done: 10/08/24 22:12
Discharge Date and Time
Print Language: KHMER
[2024-10-08 20:59] VITALS: BMI 30.1
[2024-10-08 21:00] VITALS: BP 125/83
[2024-10-08 21:03] LABS: % Basophils 0.1 % (0-2); % Eosinophils 0.2 % (0-6); % Immature Granulocytes 0.7 % (0-0.5); % Lymphocytes 3.8 % (20.5-51.1); % Monocytes 6.8 % (1.7-9.3); % Neutrophils 88.4 % (42.2-75.2); Absolute Immature Granulocytes 0.1 10^3/uL (0-0.05); Absolute Lymphocytes 0.7 10^3/uL (1.2-3.4); Absolute Monocytes 1.2 10^3/uL (0.1-0.6); Absolute Neutrophils 15.2 10^3/uL (1.4-6.5); Hematocrit 37.3 % (37.0-47.0); Hemoglobin 11.5 g/dL (12.0-16.0); Mean Corp Hgb Conc. 30.8 g/dL (33.0-37.0); Mean Corpuscular Volume 100.5 fL (81.0-99.0); Mean Platelet Volume 9.6 fL (7.4-10.4); Nucleated Red Blood Cells % 0 %; Platelet Count 332 10^3/uL (130-400); Red Blood Cell Count 3.71 10^6/uL (4.20-5.40); White Blood Cell Count 17.2 10^3/uL (4.8-10.8)
[2024-10-08] MEDS: DUONEB 3 ML INH (21:03)
[2024-10-08] MEDS: DECADRON 10 MG IV (21:03)
[2024-10-08 21:24] LABS: ALT (SGPT) 21 U/L (0-35); AST (SGOT) 22 U/L (14-36); Albumin 3.9 g/dl (3.5-5.0); Alkaline Phosphatase 95 U/L (38-126); Blood Urea Nitrogen 39 mg/dl (7-17); Calcium 9.3 mg/dl (8.4-10.2); Carbon Dioxide 31 mmol/L (22-30); Chloride 102 mmol/L (98-107); Estimated Creatinine Clearance 39 ml/min; Glucose 98 mg/dl (70-99); Sodium 142 mmol/L (135-145); Total Bilirubin 0.4 mg/dl (0.2-1.3); Total Protein 6.3 g/dl (6.3-8.2); eGFR 36.34
[2024-10-08 21:28] LABS: NT-proBNP 12300 pg/ml
[2024-10-08 22:00] VITALS: BP 124/75
--- NOTE | 2024-10-08 22:47 | HPS.HSE ---
Family Physician
-
Family Physician: Ant Diaz
Chief Complaint
-
Shortness of Breath
History of Present Illness
Patient is a 74 y/o female past medical history of chronic hypoxia, COPD, CHF, CKD and morbid obesity who presents with increased shortness of breath. Patient reports worsening abdominal distention and shortness of breath, particularly dyspnea on
exertion. She reports she can no longer walk short distances without feeling short of breath. She states her weight has been stable. She reports back pain but denies any chest pain. She reports some nausea and vomiting this morning, but reports
this has improved. She reports chronic cough that seems slightly more productive than usual. She denies fevers, sweats or chills.
Medical History
Past Medical History
Past Medical History: Reports Other
Additional Past Medical History:
Chronic Hypoxic Respiratory Insufficiency
COPD
Chronic HFpEF
Valvular Heart Disease: Mild Aortic Stenosis, Mild/Moderate Mitral Regurg
CKD Stage III
Chronic Back Pain secondary to L2 Compression Fracture
Anxiety/Depression
Morbid Obesity
Obstructive Sleep Apnea
Past Surgical History: Reports Other
Additional Past Surgical History:
Cholecystectomy
Left Shoulder Reconstruction
Fasciotomy
Social History
Tobacco: Former Smoker
Living: Alone
Family History
Family History: Not pertinent
Allergies / Home Medications
Allergies reflects when Allergies were last updated in [facility].
Home Medications with original date entered in [facility]
Allergy/Medication List:
Allergies
Allergy/AdvReac Type Severity Reaction Status Date / Time
ampicillin Allergy Hives Verified 10/05/24 19:40
coconut Allergy Hives Verified 10/05/24 19:40
mustard Allergy Hives Verified 10/05/24 19:40
Home Medications
albuterol sulfate 90 mcg/actuation aerosol inhaler 2 puff inhalation R Q4HPRN PRN sob/wheezing 12/29/22
bupropion HCl 300 mg 24 hr tablet, extended release 300 mg PO DAILY Depression 07/19/23
budesonide 160 mcg-glycopyr 9 mcg-formot 4.8 mcg/actuation HFA inhaler (Breztri Aerosphere) 2 inh inhalation R BID Lung/Breathing Issues 01/18/24
furosemide 40 mg tablet 20 mg PO DAILY Fluid Retention/Swelling 02/20/24
albuterol sulfate 2.5 mg/3 mL (0.083 %) solution for nebulization 2.5 mg inhalation R Q4HPRN PRN sob 04/17/24
acetaminophen 500 mg tablet (Tylenol Extra Strength) 1,000 mg PO BID Pain 06/22/24
melatonin 5 mg tablet 10 mg PO HSPRN PRN sleep 06/22/24
cyclobenzaprine 5 mg tablet 5 mg PO TIDPRN PRN muscle spasms 08/01/24
guaifenesin 600 mg tablet, extended release 12 hr 600 mg PO Q12H Lung/breathing issues 08/01/24
sertraline 100 mg tablet 100 mg PO DAILY Depression 08/01/24
oxycodone 5 mg tablet 5 mg PO Q6HPRN PRN severe pain #10 tabs 08/09/24
azithromycin 250 mg tablet (Zithromax) 250 mg PO DAILY #6 tabs 10/06/24
loratadine 10 mg tablet (Claritin) 10 mg PO DAILY 10/08/24
methylprednisolone 4 mg tablets in a dose pack 0 mg PO PER PKG DIR 10/08/24
prednisone 10 mg tablet 10 mg PO DAILY 10/08/24
Review of Systems
-
A 12 point ROS was completed and negative except as noted: Yes
Constitutional: Denies Fever or Chills
Respiratory: Reports Cough and Trouble Breathing
Cardiac: Denies Chest Pain
Physical Exam
Vital Signs
Vital Signs
Temp Pulse Resp BP Pulse Ox
97.7 F 100 24 124/75 98
10/08/24 20:14 10/08/24 22:00 10/08/24 22:00 10/08/24 22:00 10/08/24 22:12
Physical Exam
General: Comfortable and Conversant
HEENT: Anicteric, Moist mucous membranes and Oxygen (Nasal Cannula)
Respiratory: Wheezes (Few scattered), Rales (Bilaterally) and Non Labored Respirations
Cardiac: S1/S2 and Regular Rhythm
GI: Soft and Non Tender
Rectal: Deferred by Provider
Musculoskeletal: No Clubbing, No Cyanosis and No Edema
Skin: Warm and Dry
Neuro: Awake, Alert, Oriented and Nonfocal/grossly intact
Psych: Calm
Laboratory Results
-
10/08/24 20:56
10/08/24 20:56
Laboratory Results
Total Bilirubin 0.4 mg/dl (0.2-1.3) 10/08/24 20:56
AST 22 U/L (14-36) 10/08/24 20:56
ALT 21 U/L (0-35) 10/08/24 20:56
Alkaline Phosphatase 95 U/L (38-126) 10/08/24 20:56
Troponin I 0.090 ng/ml H* 10/08/24 20:56
Data Reviewed
-
Diagnostic Radiology: Report Reviewed by me
Lab Data: Labs Reviewed by me
Impression/Plan
-
Acute on Chronic HFpEF
-Consult Cardiology
-Echo April 2024: EF 55-60%. Mild Aortic Stenosis, Mild/Moderate Mitral Regurg
-Continue Lasix 40mg IV Daily
-Monitor Is&Os and Daily Weights
Non-Ischemic Myocardial Injury secondary to Acute Heart Failure
-Continue to trend troponin
Chronic Hypoxic Respiratory Insufficiency
-Continue supplemental oxygen as prior to admission
COPD, no acute exacerbation
-Transition Breztri to Pulmicort and DuoNeb during hospitalization
-Continue prednisone
CKD Stage III
-Creatinine at baseline
-Monitor closely while on diuretics
Chronic Back Pain secondary to L2 Compression Fracture
-Continue Tylenol and Oxycodone as prior to admission
Anxiety/Depression
-Continue bupropion and sertraline
DVT Proph: SC Heparin
Code Status: Full Code
[2024-10-08 23:00] VITALS: BP 114/71
[2024-10-08] MEDS: TYLENOL 1000 MG PO (23:24)
[2024-10-08] MEDS: LASIX 20 MG IV (23:24)
[2024-10-08 23:25] VITALS: BP 139/79
[2024-10-09] VITALS (10 sets, daily range): BP systolic 116–153; BP diastolic 46–103; PULSE 113; O2SAT 85; BMI 30.1
[2024-10-09] MEDS: FLUSH (NSS) 1 FLUSH IV (00:07)
[2024-10-09 00:09] LABS: Troponin I 0.088 ng/ml
[2024-10-09] MEDS: FLEXERIL 5 MG PO ×2 (01:02→12:46)
[2024-10-09] MEDS: HEPARIN 5000 UNITS SC ×4 (01:05→23:19)
--- NOTE | 2024-10-09 03:27 | W.PN.UPDATE ---
Update Note
Progress Note Update
Patient seen in conjunction with DIRECTOR OF SEARCH ENGINE OPTIMIZATION. I agree with the findings on history and physical. I concur with the assessment and plan unless stated otherwise.
This is a 74-year-old female who has a past medical history of COPD on 3 L home O2, CHF with preserved EF, mild and moderate AR, JUAN ANTONIO, hypertension presenting to the emergency department with worsening shortness of breath. Patient was seen in the
emergency department 4 days ago with similar symptoms. At the time she has had 5 days of moderately productive cough without fevers or chills and has been on a prednisone taper and azithromycin in addition to her home nebs. The time the patient
decided not to stay and was discharged from the ED. She was found to have elevated BNP at that time and the x-ray was equivocal for any new findings. There was no pneumonia and no effusion and no obvious clear pulmonary edema. Troponin was
already elevated at 0.04 at that time. Patient was discharged and went to a wedding ceremony for her son. She says her symptoms never improved and that she came back today with severe dyspnea on exertion. Her cough is unchanged. She has had no
fevers or chills. No clear evidence of volume overload. She denies lower extremity edema. She always has some degree of orthopnea. She denies PND. No new weight gain or weight loss. She reports bilateral shoulder pain. No chest pain.
In the ED she was afebrile, blood pressure was 133/69 and she was tachycardic to 103. She had oxygen saturation of around 90% on room air. Chest x-ray shows prominent bronchovascular markings but otherwise unremarkable. ECG with normal sinus
rhythm rate of 99 and unchanged from prior. Initial troponin was 0.09. She has a persistent leukocytosis of 17 the hemoglobin and platelet counts were normal. Electrolytes BUN/creatinine were unchanged from prior. BNP was elevated at 12,300.
My examination, she has scattered wheezes and crackles throughout the lung mejia. She is moving here. She does not have significant peripheral edema. Could not appreciate JVD.
Assessment and plan
Patient with worsening shortness of breath wheezing and crackles consistent with CHF and COPD exacerbation. She had already tried treatment for COPD with Zithromax and steroid taper over the last 10 days without much improvement. With that her BNP
had increased from a baseline of around [id number] to 12,000 4 days ago when she first came to the ED. It remains high with a small trop elevation. Possibly CHF is showing more suspicion that can be appreciated initial physical exam and x-ray. She
has no signs of any acute infection. Will admit for CHF exacerbation and monitor her COPD.
- admit to telemetry
- lasix IV daily for now
- daily weights and i/o
- will consult cardiology
- repeat echo per cardiology
COPD - Possibly exacerbation has been getting outpatient treatment for this. Likely related to volume overload; while diuresing
- continue ics
- RTC duoneb w/ prn
- continue prednisone 10 for now
- low threshold to escalate if needed
Non-ischemic myocardial injury - Trop 0.09 - > 0.08. Either demand related or related to volume overload. No chest pain. No acute ECG changes.
- trend for now to see continued decline.
JUAN ANTONIO
- cpap hs
DVT PPX - lovenox sq
Code status - full code
[2024-10-09 03:47] LABS: Hematocrit 36.5 % (37.0-47.0); Hemoglobin 11.3 g/dL (12.0-16.0); Mean Corpuscular Hgb 31.2 pg (27.0-31.0); Mean Corpuscular Volume 100.8 fL (81.0-99.0); Mean Platelet Volume 9.4 fL (7.4-10.4); Platelet Count 291 10^3/uL (130-400); Red Blood Cell Count 3.62 10^6/uL (4.20-5.40); Red Cell Dist. Width 15.9 % (11.5-14.5); White Blood Cell Count 13.4 10^3/uL (4.8-10.8)
--- NOTE | 2024-10-09 04:05 | PTCARENOTE ---
Assumed care of Pt. AAOX3, cooperative. pox 98% on 3L NC. vss. NSR on monitor. Denies sob or dizziness. Oriented to room. Call moyer within reach.
[2024-10-09 04:15] LABS: Blood Urea Nitrogen 39 mg/dl (7-17); Calcium 8.9 mg/dl (8.4-10.2); Carbon Dioxide 32 mmol/L (22-30); Chloride 101 mmol/L (98-107); Estimated Creatinine Clearance 39 ml/min; Glucose 149 mg/dl (70-99); Magnesium 2.1 mg/dl (1.6-2.3); Potassium 4.4 mmol/L (3.5-5.1); Sodium 141 mmol/L (135-145); eGFR 36.34
[2024-10-09 04:24] LABS: Troponin I 0.082 ng/ml
--- NOTE | 2024-10-09 07:38 | CON.CAR ---
Addendum entered and electronically signed by Hector Pleitez MD 10/09/24 10:41:
I saw and examined the patient.
The OIL WELL FISHING TOOL TECHNICIAN's note was reviewed and I agree with the note.
74-year-old female with HFpEF, COPD, CKD, mild to moderate MR, mild aortic stenosis, and moderate aortic regurgitation . recent tx for suspected COPd exacerabation who presents with increased SOB. Patient went to a tuesday night and has has
had increased SOB since then . No CP or edema. Compliant with medical therapy. CXR with prominent bronchocascular markings. [facility]. SOB likely multifactorial. Suspect non NC troponin 0.08 COPD, COPD exacerbation
and acute left heart failure. HFpEF.
- diuresis with IV lasix
- monitor weighs I/o
- monitor renal function
-Case management to coffey SGLT2i
- echo to reassess LVF
Original Note:
Consultation
Consultation Request
Date/Time Consultation Requested: 10/09/2024 00:44
Date/Time Consultation Performed: 10/09/2024 08:00
Requesting Provider: Amie Hernadez PA-C
Performing Provider: JOSEFINA Mabry for Dr. Pleitez
Reason for Consultation: Acute HFpEF
Medical History
-
Chief Complaint: Shortness of breath
History of Present Illness:
Flory Carter is a 74-year-old female with HFpEF, COPD, CKD, mild to moderate MR, mild aortic stenosis, and moderate aortic regurgitation who presented to the emergency department with a chief complaint of shortness of breath. She was seen in the
emergency department 4 days ago with similar symptoms. At that time, she endorsed 5 days of a productive cough without fever or chills. She was given a prednisone taper and azithromycin in addition to her standing home nebulizer treatments. She
did not want to stay as she had her son's wedding. She was discharged from the emergency department. She presented back with shortness of breath. Her proBNP was elevated from 4 days prior. She was diagnosed with acute on chronic heart failure.
She is on the hospitalist service. She is continuing on her standing dose of prednisone 10 mg daily. Cardiology was consulted for heart failure management.
Past Medical History
Past Medical History: CHF, COPD, Renal Failure (CKD), Valvular Disease (, MR) and Other (JUAN ANTONIO)
Past Surgical History: Cholecystectomy and Orthopedic
Social History
Tobacco: Former Smoker
Alcohol: None
Drug: None
Living: With Family (Daughter)
Employment: Retired
Family History
Family History: Reviewed & Not Pertinent
Allergies / Home Medications
Allergy/AdvReac Type Severity Reaction Status Date / Time
ampicillin Allergy Hives Verified 10/05/24 19:40
coconut Allergy Hives Verified 10/05/24 19:40
mustard Allergy Hives Verified 10/05/24 19:40
�Medication �Instructions �Recorded �Confirmed �Type
albuterol sulfate 90 mcg/actuation 2 puff inhalation R Q4HPRN PRN 12/29/22 10/08/24 History
aerosol inhaler sob/wheezing
bupropion HCl 300 mg 24 hr tablet, 300 mg PO DAILY Depression 07/19/23 10/08/24 History
extended release
budesonide 160 mcg-glycopyr 9 2 inh inhalation R BID 01/18/24 10/08/24 History
mcg-formot 4.8 mcg/actuation HFA Lung/Breathing Issues
inhaler (Breztri Aerosphere)
furosemide 40 mg tablet 20 mg PO DAILY Fluid 02/20/24 10/08/24 History
Retention/Swelling
albuterol sulfate 2.5 mg/3 mL 2.5 mg inhalation R Q4HPRN PRN sob 04/17/24 10/08/24 History
(0.083 %) solution for nebulization
acetaminophen 500 mg tablet 1,000 mg PO BID Pain 06/22/24 10/08/24 History
(Tylenol Extra Strength)
melatonin 5 mg tablet 10 mg PO HSPRN PRN sleep 06/22/24 10/08/24 History
cyclobenzaprine 5 mg tablet 5 mg PO TIDPRN PRN muscle spasms 08/01/24 10/08/24 History
guaifenesin 600 mg tablet, 600 mg PO Q12H Lung/breathing 08/01/24 10/08/24 History
extended release 12 hr issues
sertraline 100 mg tablet 100 mg PO DAILY Depression 08/01/24 10/08/24 History
oxycodone 5 mg tablet 5 mg PO Q6HPRN PRN severe pain #10 08/09/24 10/08/24 Rx
tabs
azithromycin 250 mg tablet 250 mg PO DAILY #6 tabs 10/06/24 10/08/24 Rx
(Zithromax)
loratadine 10 mg tablet (Claritin) 10 mg PO DAILY 10/08/24 10/08/24 History
methylprednisolone 4 mg tablets in 0 mg PO PER PKG DIR 10/08/24 10/08/24 History
a dose pack
prednisone 10 mg tablet 10 mg PO DAILY 10/08/24 10/08/24 History
Review of Systems
-
History Source: Patient
All other systems: Negative unless noted
Constitutional: Fatigue
EENT: No Symptoms
Respiratory: Trouble Breathing
Cardiac: No Symptoms
Abdomen/GI: Other (bloating)
: No Symptoms
Musculoskeletal: Muscle Pain (back pain)
Skin: No Symptoms
Neurological: No Symptoms
Endocrine: No Symptoms
Hematologic/Lymphatic: No Symptoms
Physical Exam
Vital Signs
Temp Pulse Resp BP Pulse Ox
98.0 F 91 22 153/91 98
10/09/24 07:15 10/09/24 07:15 10/09/24 07:15 10/09/24 07:15 10/09/24 07:15
Lab Results
10/09/24 03:30
10/09/24 03:30
Troponin I 0.082 ng/ml H* 10/09/24 03:30
Gbi-P-Byeifxhchla Pept 72051 pg/ml 10/08/24 20:56
Physical Exam
General: Well Developed, Well Nourished, No Apparent Distress and Comfortable
HEENT: Normocephalic, Anicteric and Moist Mucous Membranes
Respiratory: Clear and Non Labored Respirations
Cardiac: S1/S2 and Regular Rhythm
Breast: Deferred by me
GI: Soft, Non Tender, Non Distended and Normal Bowel Sounds
Rectal: Deferred by Provider
Genito-urinary: No Costovertebral Tender
Musculoskeletal: No Clubbing, No Cyanosis and No Edema
Skin: Warm and Dry
Neuro: AO x 3
Hematologic/Lymphatic: No Lymphadenopathy
Psych: Calm
Impression / Plan
-
IMPRESSION/PLAN: 74F with HFpEF, COPD (steroid & O2 dependent), and chronic back pain on palliative care at home ([facility]), presented with shortness of breath.
Primary teller head: Dr. 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
HFpEF, acute on chronic
-Diuresis with furosemide 40 mg IV twice daily, this requires intensive monitoring given her underlying CKD
-She has been slowly losing weight at home, dry weight to be determined
-Case management to coffey SGLT2i, renal function may limit her GDMT
-Echocardiogram tomorrow, she is too short of breath today
-Heart failure education
-Trend daily weight, I/O, and BMP with diuresis
Abnormal troponin, likely nonischemic myocardial injury in the setting of acute heart failure
-Chest pain-free
-No acute ischemia on EKG
CKD, follow with diuresis
Valvular heart disease
-Mild to moderate mitral regurgitation
-Mild aortic stenosis
-Moderate aortic regurgitation
-Update echocardiogram tomorrow
COPD, steroid and oxygen dependent
Former tobacco use, continue cessation recommended
Night terrors, she is very concerned about this, per primary
SUBJECTIVE:
Shortness of breath has improved overnight. Not back to baseline.
Data Reviewed
-
EKG: Report Reviewed by me (Sinus rhythm, rate 99)
Radiology: Report Reviewed by me (CXR: Diminished degree of inspiration likely contributing to generalized prominence of bronchovascular markings. Central pulmonary vasculature is prominent, though unchanged, and could suggest an element of chronic
passive venous congestion. However, no other findings to suggest CHF.)
Medical Tests (Nuc Med, Echo etc): Report Reviewed by me (Prior echocardiogram as above)
Labs: Labs Reviewed by me
Old Records: Reviewed
[2024-10-09] MEDS: PULMICORT 0.5 MG INH ×2 (07:55→19:14)
[2024-10-09] MEDS: DUONEB 3 ML INH ×4 (07:56→19:14)
[2024-10-09] MEDS: LASIX 40 MG IV ×2 (08:10→16:56)
[2024-10-09] MEDS: MUCINEX 600 MG PO ×2 (08:11→19:33)
[2024-10-09] MEDS: ZOLOFT 100 MG PO (08:11)
[2024-10-09] MEDS: DELTASONE 10 MG PO (08:11)
[2024-10-09] MEDS: WELLBUTRIN XL (24 hour extended release) 300 MG PO (09:49)
[2024-10-09 10:07] LABS: Venous Blood Gas B.E. 6.4 mmol/L (-4 to +4); Venous Blood Gas HCO3 31.3 mmol/L (22-27); Venous Blood Gas O2 Sat % 98.6 %; Venous Blood Gas pCO2 45 mmHg (35-48); Venous Blood Gas pH 7.45 (7.32-7.43); Venous Blood Gas pO2 81 mmHg (30-50)
[2024-10-09] MEDS: ROXICODONE 5 MG PO (12:45)
--- NOTE | 2024-10-09 15:40 | W.PN.HOSP.TC ---
Today's Communication/Plan
-
see note
Assessment / Plan
Assessment / Plan
Acute on Chronic HFpEF
-Echo April 2024: EF 55-60%. Mild Aortic Stenosis, Mild/Moderate Mitral Regurg
-Probnp elevateed
-Maintain on IV diuretics
-Monitor Is&Os and Daily Weights
-Cardiology help requested
-Repeat echo ordered
Non-Ischemic Myocardial Injury secondary to Acute Heart Failure
-Continue to trend troponin
Chronic Hypoxic Respiratory Insufficiency
-Continue supplemental oxygen as prior to admission
-o2 requirement stbale
Visual hallucination
-Patient reported of having visual hallucination
-Venous blood gas ruled out any CO2 narcosis
-Steroid related? curently on prednisone 10mg/d
-No h/o of psych issues.
COPD, no acute exacerbation
-Patient finished short course of steroids/azithromycin without much help
-Transition Breztri to Pulmicort and DuoNeb during hospitalization
-Continue prednisone 10mg/d
CKD Stage III
-Creatinine at baseline
-Monitor closely while on diuretics
Chronic Back Pain secondary to L2 Compression Fracture
-Continue Tylenol and Oxycodone as prior to admission
Anxiety/Depression
-Continue bupropion and sertraline
Normocytic anemia
-Hbg close to baseline
Mild aortic stenosis
Moderate mitral regurgitation
Chronic back pain with lumbar compression fracture
Anxiety/depression
Morbid obesity
Obstructive sleep apnea
DVT Proph: SC Heparin
Code Status: Full Code
Total time spent : 52 mins
Anticipated Discharge: Within 24 hours
Subjective/Interval History
-
Date of Service: October 09, 2024
remains on o2 through NC - at baseline of 2.5L/m
reported have hallucination issue
Objective Data
-
Labs:
Laboratory Results
10/09/24
03:30
WBC 13.4 H
Hgb 11.3 L
Hct 36.5 L
Plt Count 291
Sodium 141
Potassium 4.4
Chloride 101
Carbon Dioxide 32 H
BUN 39 H
Creatinine 1.5 H
Glucose 149 H
Calcium 8.9
Vital Signs:
Vital Signs
Temp Pulse Resp BP Pulse Ox
98.0 F 110 40 153/91 95
10/09/24 07:15 10/09/24 14:30 10/09/24 10:30 10/09/24 08:10 10/09/24 10:20
I&O
10/08/24 10/09/24 10/10/24
06:59 06:59 06:59
Output Total 700 / 700
Balance -700 / -700
Review of Systems
-
Respiratory: Reports No Symptoms
Cardiac: Reports No Symptoms
Abdomen/GI: Reports No Symptoms
Physical Exam
-
General: No Apparent Distress
HEENT: Normocephalic and Atraumatic
Respiratory: Wheezes and Rhonchi
Cardiac: Regular Rhythm
GI: Soft, Nontender and Nondistended
Genito-urinary: No Costovertebral Tender
Musculoskeletal: No Edema
Neuro: Awake, Alert, Oriented and AO x 3
[2024-10-09] MEDS: DESENEX/MITRAZOL/ZEASORB 1 APPLIC TOPICAL (19:33)
[2024-10-10] VITALS (7 sets, daily range): BP systolic 111–147; BP diastolic 67–89; PULSE 108; O2SAT 97; BMI 29.1
[2024-10-10] MEDS: ROXICODONE 5 MG PO (01:26)
--- NOTE | 2024-10-10 04:01 | DOWNTIME ---
There was a [employer] Client Security Guard Dispatcher Downtime on 10/10/2024 from 0100 to 10/10/2024 at 0350. Downtime documentation of patient's care, including medication administrations, has been reconciled in the electronic record per guidelines. Refer to the
patient's paper chart under the miscellaneous tab to see printed paper medication records and downtime forms.
[2024-10-10] MEDS: PULMICORT 0.5 MG INH ×2 (05:54→18:40)
[2024-10-10] MEDS: DUONEB 3 ML INH ×4 (05:54→18:40)
[2024-10-10] MEDS: ZOLOFT 100 MG PO (08:47)
[2024-10-10] MEDS: LASIX 40 MG IV ×2 (08:47→16:08)
[2024-10-10] MEDS: HEPARIN 5000 UNITS SC ×2 (08:47→16:09)
[2024-10-10] MEDS: MUCINEX 600 MG PO ×2 (08:47→21:08)
[2024-10-10] MEDS: WELLBUTRIN XL (24 hour extended release) 300 MG PO (08:47)
[2024-10-10] MEDS: DELTASONE 10 MG PO (08:47)
[2024-10-10] MEDS: DESENEX/MITRAZOL/ZEASORB 1 APPLIC TOPICAL (08:54)
--- NOTE | 2024-10-10 09:26 | W.PN.CD ---
Addendum entered and electronically signed by Erasmo Kidd MD 10/10/24 12:09:
Creatinine stable. Can continue twice daily Lasix.
Original Note:
Today's Communication / Plan
-
Continue Lasix pending a.m. labs
Follow-up pricing for SGLT2 inhibitor
Impression / Plan
-
IMPRESSION/PLAN: 74F with HFpEF, COPD (steroid & O2 dependent), and chronic back pain on palliative care at home ([facility]), presented with shortness of breath.
Primary food service employee: Dr. 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
HFpEF, acute on chronic
-Diuresis with furosemide 40 mg IV twice daily, this requires intensive monitoring given her underlying CKD
-She has been slowly losing weight at home, dry weight to be determined
-Case management to coffey SGLT2i, renal function may limit her GDMT
-Echocardiogram today
-Heart failure education
-Trend daily weight, I/O, and BMP with diuresis
Abnormal troponin, likely nonischemic myocardial injury in the setting of acute heart failure
-Chest pain-free
-No acute ischemia on EKG
-Okay to stop trending as it is downtrending
Back pain
-This is her main complaint
-Continue home pain control. Followed by palliative.
CKD, follow with diuresis
Valvular heart disease
-Mild to moderate mitral regurgitation
-Mild aortic stenosis
-Moderate aortic regurgitation
-Update echocardiogram
COPD, steroid and oxygen dependent
Former tobacco use, continue cessation recommended
Night terrors, she is very concerned about this, per primary
SUBJECTIVE:
Very nauseous this morning. Says her shortness of breath is at baseline. Weight is down to 86.9 kg from 89.8 kg on 10/08. She received IV Lasix 40 mg twice daily yesterday. Labs this morning are pending. No events on telemetry.
Physical Exam
Vital Signs/Labs
Vital Signs
Temp Pulse Resp BP Pulse Ox
98 F 101 20 147/89 96
10/10/24 08:19 10/10/24 08:47 10/10/24 08:19 10/10/24 08:47 10/10/24 08:19
10/09/24 10/10/24 10/11/24
06:59 06:59 06:59
Actual Weight 89.8 kg 86.891 kg
10/09/24 03:30
Magnesium 2.1 mg/dl (1.6-2.3) 10/09/24 03:30
10/08/24
20:56
Ply-H-Jhtpqufnxqb Pept 63505
LAB Results
10/08/24 10/08/24 10/09/24
20:56 23:31 03:30
Troponin I 0.090 H* 0.088 H* 0.082 H*
Physical Exam
Constitutional: Distress (Very nauseous, increased work of breathing)
Cardiovascular: Rhythm & rate is regular, Pedal edema is absent, S1S2 is normal and Murmur/rub/gallop absent
Respiratory: Labored respirations and Wheeze Present
Data Reviewed
-
Date of Service: October 10, 2024
Medical Decision Making: Reviewed Test Results, Independent Historian Assessment, Test Interpretation and Review of Case with other Provider
EKG: Tracing Personally Visualized and interpreted
Echo: Report Reviewed by me
Labs: Labs Reviewed by me
[2024-10-10] MEDS: ZOFRAN ODT (ORALLY DISINTEGRATING) 4 MG PO (09:34)
--- NOTE | 2024-10-10 11:13 | PN.CDI ---
CDI
- -
CDI:
Physician Documentation Request
Admit Date: 10/08/24 23:46
Dear Doctor Jorge,
Per H&P patient has past medical history of chronic hypoxia '-Continue supplemental oxygen as prior to admission'. H&P states 'Chronic Hypoxic Respiratory Insufficiency'
Update note on 10/09 states 'past medical history of COPD on 3 L home O2'
Please clarify the patients respiratory status:
Chronic hypoxic respiratory failure on continuous home o2
Hypoxia on intermittent use of home O2.
Other
Use of terms such as suspected, likely, concern for, or probable (associated with a specific diagnosis that is being evaluated, monitored, or treated as if it exists) are acceptable and can be coded in the inpatient setting, when documented at the
time of discharge.
Thank you,
Azra Shah RN, BSN
CDI Specialist
tiger text
Please use your independent medical judgment in providing your response.
[2024-10-10 11:17] LABS: Blood Urea Nitrogen 45 mg/dl (7-17); Calcium 9.2 mg/dl (8.4-10.2); Carbon Dioxide 38 mmol/L (22-30); Chloride 94 mmol/L (98-107); Estimated Creatinine Clearance 41 ml/min; Glucose 81 mg/dl (70-99); Potassium 3.7 mmol/L (3.5-5.1); Sodium 142 mmol/L (135-145); eGFR 39.48
--- NOTE | 2024-10-10 11:19 | PN.CDI ---
CDI
- -
CDI:
Physician Documentation Request
Admit Date: 10/08/24 23:46
Dear Doctor Jorge,
H&P and hospitalist progress note 10/09 states 'COPD, no acute exacerbation'
10/09 hospitalist update note states 'Patient with worsening shortness of breath wheezing and crackles consistent with CHF and COPD exacerbation.'
In an attempt to clarify potentially conflicting documentation, please clarify'
Acute exacerbation of COPD
COPD no exacerbation
Other
Use of terms such as suspected, likely, concern for, or probable (associated with a specific diagnosis that is being evaluated, monitored, or treated as if it exists) are acceptable and can be coded in the inpatient setting, when documented at the
time of discharge.
Thank you,
Azra Shah RN, BSN
CDI Specialist
tiger text
Please use your independent medical judgment in providing your response.
--- NOTE | 2024-10-10 12:51 | W.PN.HOSP.TC ---
Today's Communication/Plan
-
continue diuretics
f/u weight/cr
pt/ot
Assessment / Plan
Assessment / Plan
Acute on Chronic HFpEF
-Echo April 2024: EF 55-60%. Mild Aortic Stenosis, Mild/Moderate Mitral Regurg
-Probnp elevated from 3250 in aug 07 to 56965 this admission.
-Maintain on IV diuretics
-Cr stable at 1.4, weight trending down from 90kg > 86.8kg today.
-Cardiology following and help appreciated.
-f/u repeat echocardiogram report
Non-Ischemic Myocardial Injury secondary to Acute Heart Failure
-Continue to trend troponin
Chronic Hypoxic Respiratory Insufficiency
-Continue supplemental oxygen as prior to admission
-o2 requirement stable
Visual hallucination
-Patient reported of having visual hallucination
-Venous blood gas ruled out any CO2 narcosis
-Steroid related? currently on prednisone 10mg/d
-No h/o of psych issues.
COPD, no acute exacerbation
-Patient finished short course of steroids/azithromycin without much help
-Transition Breztri to Pulmicort and DuoNeb during hospitalization
-Continue prednisone 10mg/d
CKD Stage III
-Creatinine at baseline
-Monitor closely while on diuretics
Chronic Back Pain secondary to L2 Compression Fracture
-Continue Tylenol and Oxycodone as prior to admission
Anxiety/Depression
-Continue bupropion and sertraline
Normocytic anemia
-Hbg close to baseline
Mild aortic stenosis
Moderate mitral regurgitation
Chronic back pain with lumbar compression fracture
Anxiety/depression
Morbid obesity
Obstructive sleep apnea
DVT Proph: SC Heparin
Code Status: Full Code
Anticipated Discharge: 24 - 48 hours
Subjective/Interval History
-
Date of Service: October 10, 2024
Patient somnolent, denies having sleep disturbances
No reported hallucination episodes overnight
Oxygen requirement remains stable
Objective Data
-
Labs:
Laboratory Results
10/10/24
08:16
Sodium 142
Potassium 3.7
Chloride 94 L
Carbon Dioxide 38 H
BUN 45 H
Creatinine 1.4 H
Glucose 81
Calcium 9.2
Vital Signs:
Vital Signs
Temp Pulse Resp BP Pulse Ox
98.1 F 101 20 129/68 98
10/10/24 12:33 10/10/24 12:33 10/10/24 12:33 10/10/24 12:33 10/10/24 12:33
I&O
10/09/24 10/10/24 10/11/24
06:59 06:59 06:59
Intake Total 480 / 480
Output Total 700 / 700
Balance -220 / -220
Review of Systems
-
Respiratory: Reports No Symptoms
Cardiac: Reports No Symptoms
Abdomen/GI: Reports No Symptoms
Physical Exam
-
General: No Apparent Distress
HEENT: Oxygen (3 L NC)
Respiratory: Wheezes and Rhonchi
Cardiac: Regular Rhythm and S1/S2; Negative Murmur
GI: Soft, Nontender and Nondistended
Genito-urinary: No Costovertebral Tender
Musculoskeletal: Edema, Right Lower Extrem and Edema, Left Lower Extrem (Left more than right)
Neuro: No Motor Deficits and Other (Somnolent)
Psych: Calm
--- NOTE | 2024-10-10 14:11 | W.PN.UPDATE ---
Addendum entered and electronically signed by Erasmo Kidd MD 10/10/24 15:44:
Entresto not covered by insurance. Will start valsartan 40 mg twice daily.
Original Note:
Update Note
Progress Note Update
Patient's echocardiogram reveals newly depressed LV ejection fraction (35-40%) with global hypokinesis and no new valvular disease.
-She will need an ischemic evaluation. It will probably need to be a catheterization. She is not a good candidate for pharmacologic stress test due to her severe COPD with active wheezing and she cannot exercise. We will need to wait until her
shortness of breath has improved so she can lay flat for procedure.
-GDMT:
-No beta-yin yet due to COPD with active wheezing
-Follow-up case management for pricing of SGLT2 inhibitor
-We will start spironolactone 25 mg daily
-We will trial low-dose Entresto and monitor creatinine closely though CKD may be a limiting factor (will ask case management to coffey)
-Does not meet criteria for ICD
-Continue Lasix 40 mg IV twice daily
[2024-10-10] MEDS: ALDACTONE 25 MG PO (16:08)
--- NOTE | 2024-10-10 17:25 | CM ---
Addendum entered by Linda Bolaños RN 10/10/24 17:30:
Weir check for Jardiance is $47.00.
Original Note:
Alert awake oriented patient who lives with her daughter Alma Delia who lives in a 3 story home with 2 steps to enter and bed bathroom on first floor. She is independent in all activities of daily living.Will need PT OT for Dc Planning.
Oxygen [employer], walker cane
Current [facility]
PCP Dr Diaz
PLAN Will need PT OT for dc plan. If SNF wants [facility]
[2024-10-10] MEDS: DIOVAN 40 MG PO (21:08)
[2024-10-11] VITALS (10 sets, daily range): BP systolic 86–115; BP diastolic 49–64; BMI 31.0
[2024-10-11] MEDS: HEPARIN 5000 UNITS SC ×4 (01:16→23:16)
[2024-10-11] MEDS: DESENEX/MITRAZOL/ZEASORB 1 APPLIC TOPICAL ×3 (01:16→20:35)
[2024-10-11] MEDS: VENTOLIN NEBULES 2.5 MG INH (04:02)
[2024-10-11] MEDS: PULMICORT 0.5 MG INH ×2 (07:30→18:33)
[2024-10-11] MEDS: DUONEB 3 ML INH ×3 (07:30→18:01)
[2024-10-11] MEDS: DIOVAN PO (10:15)
[2024-10-11] MEDS: ALDACTONE PO (10:15)
[2024-10-11] MEDS: ProAmatine 10 MG PO (10:16)
[2024-10-11] MEDS: TYLENOL 650 MG PO ×2 (10:16→20:35)
--- NOTE | 2024-10-11 10:37 | PTCARENOTE ---
Blood pressure found to be 86/54 manually HR 83. Pt reports feeling lethargic and nauseous. aware. Midodrine ordered and administered. Diovan, aldactone and lasix on hold for now.
[2024-10-11 11:06] LABS: Hematocrit 41.4 % (37.0-47.0); Hemoglobin 12.9 g/dL (12.0-16.0); Mean Corp Hgb Conc. 31.2 g/dL (33.0-37.0); Mean Corpuscular Hgb 31.5 pg (27.0-31.0); Mean Platelet Volume 9.9 fL (7.4-10.4); Platelet Count 320 10^3/uL (130-400); Red Cell Dist. Width 15.8 % (11.5-14.5); White Blood Cell Count 14.5 10^3/uL (4.8-10.8)
[2024-10-11] MEDS: DUONEB INH (11:08)
[2024-10-11 11:15] LABS: ALT (SGPT) 38 U/L (0-35); AST (SGOT) 30 U/L (14-36); Albumin 3.9 g/dl (3.5-5.0); Alkaline Phosphatase 97 U/L (38-126); Blood Urea Nitrogen 47 mg/dl (7-17); Calcium 9.5 mg/dl (8.4-10.2); Chloride 90 mmol/L (98-107); Estimated Creatinine Clearance 39 ml/min; Glucose 98 mg/dl (70-99); Potassium 3.7 mmol/L (3.5-5.1); Sodium 142 mmol/L (135-145); Total Bilirubin 0.7 mg/dl (0.2-1.3); Total Protein 6.4 g/dl (6.3-8.2); eGFR 36.34
[2024-10-11 11:27] LABS: Carbon Dioxide 38 mmol/L (22-30)
[2024-10-11] MEDS: DELTASONE 10 MG PO (11:49)
[2024-10-11] MEDS: WELLBUTRIN XL (24 hour extended release) 300 MG PO (11:50)
[2024-10-11] MEDS: ZOLOFT 100 MG PO (11:50)
[2024-10-11] MEDS: MUCINEX 600 MG PO ×2 (11:50→20:35)
--- NOTE | 2024-10-11 12:58 | W.PN.HOSP.TC ---
Today's Communication/Plan
-
see note
Assessment / Plan
Assessment / Plan
TTE
Normal left ventricular size with moderately reduced systolic function. LVEF 35-40%. Global hypokinesis.
Normal RV size and function.
Moderate mitral regurgitation.
Mild low-flow low gradient aortic stenosis.
Moderate aortic regurgitation.
Mild tricuspid regurgitation.

Acute systolic hf
-Echo April 2024: EF 55-60%. Mild Aortic Stenosis, Mild/Moderate Mitral Regurg
-TTE this admission showing decline in EF to 35-40% with global hypokinesis
-Probnp elevated from 3250 in aug 07 to 84134 this admission.
-Cardiology following and help appreciated.
-Renal function stable, IV diuretics AM dose to be held with hypotension
-Requested RN to do standing weight scale if possible
-GDMT will be limited with Hypotension episode, will need reattempt at lower dose reinitiation of ARB/Aldactone
Hypotension
-Patient hypotensive with systolic in low 80s, patient feeling lethargic tired
-Patient got first dose of valsartan/Aldactone later in the evening possibly contributing
-Providing 1 dose of midodrine 10 mg.
-Lasix to be resumed from evening dose of blood pressure appropriate
Non-Ischemic Myocardial Injury secondary to Acute Heart Failure
-Continue to trend troponin
Chronic Hypoxic Respiratory Insufficiency
-Continue supplemental oxygen as prior to admission
-o2 requirement stable
Visual hallucination
-Patient reported of having visual hallucination
-Venous blood gas ruled out any CO2 narcosis
-Steroid related? currently on prednisone 10mg/d
-No h/o of psych issues.
COPD, no acute exacerbation
-Patient finished short course of steroids/azithromycin without much help
-Transition Breztri to Pulmicort and DuoNeb during hospitalization
-Continue prednisone 10mg/d
CKD Stage III
-Creatinine at baseline
-Monitor closely while on diuretics
Chronic Back Pain secondary to L2 Compression Fracture
-Continue Tylenol and Oxycodone as prior to admission
Anxiety/Depression
-Continue bupropion and sertraline
Normocytic anemia
-Hbg close to baseline
Mild aortic stenosis
Moderate mitral regurgitation
Chronic back pain with lumbar compression fracture
Anxiety/depression
Morbid obesity
Obstructive sleep apnea
DVT Proph: SC Heparin
Code Status: Full Code
Total time spent : 52 mins
Anticipated Discharge: > 48 hours
Subjective/Interval History
-
Date of Service: October 11, 2024
Patient hypotensive in the morning with systolic blood pressure in 80s
Afebrile
Feeling weak/lethargic
Objective Data
-
Labs:
Laboratory Results
10/11/24 10/11/24
06:00 10:38
WBC 14.5 H
Hgb 12.9
Hct 41.4
Plt Count 320
Sodium Cancelled 142
Potassium Cancelled 3.7
Chloride Cancelled 90 L
Carbon Dioxide Cancelled 38 H
BUN Cancelled 47 H
Creatinine Cancelled 1.5 H
Glucose Cancelled 98
Calcium Cancelled 9.5
Total Bilirubin 0.7
AST 30
ALT 38 H
Alkaline Phosphatase 97
Vital Signs:
Vital Signs
Temp Pulse Resp BP Pulse Ox
97.6 F 90 18 95/49 98
10/11/24 11:16 10/11/24 11:16 10/11/24 11:16 10/11/24 11:16 10/11/24 11:16
I&O
10/10/24 10/11/24 10/12/24
06:59 06:59 06:59
Intake Total 480 / 480 380 / 380
Output Total 700 / 700 700 / 700
Balance -220 / -220 -320 / -320
Review of Systems
-
Respiratory: Reports No Symptoms
Cardiac: Reports No Symptoms
Abdomen/GI: Reports No Symptoms
Physical Exam
-
General: No Apparent Distress
HEENT: Oxygen (3 L NC)
Respiratory: Wheezes and Rhonchi
Cardiac: Regular Rhythm and S1/S2; Negative Murmur
GI: Soft, Nontender and Nondistended
Genito-urinary: No Costovertebral Tender
Musculoskeletal: Edema, Right Lower Extrem and Edema, Left Lower Extrem (Left more than right)
Neuro: No Motor Deficits and Other (Somnolent)
Psych: Calm
[2024-10-11] MEDS: LASIX IV ×2 (13:56→17:00)
[2024-10-11] MEDS: LASIX 40 MG IV (18:38)
--- NOTE | 2024-10-11 23:47 | PTCARENOTE ---
Patient with 9 beats of vtach?. Patient was sleeping at the time. 110/61 . HR back to 80s with SR. JOSEFINA Puckett made aware. No new orders.
[2024-10-12] VITALS (7 sets, daily range): BP systolic 98–114; BP diastolic 47–81; PULSE 73; O2SAT 97; BMI 31.1
[2024-10-12] MEDS: DUONEB 3 ML INH ×4 (06:55→19:55)
[2024-10-12] MEDS: PULMICORT 0.5 MG INH ×2 (06:56→19:54)
[2024-10-12] MEDS: DELTASONE 10 MG PO (08:34)
[2024-10-12] MEDS: HEPARIN 5000 UNITS SC ×3 (08:34→23:00)
[2024-10-12] MEDS: WELLBUTRIN XL (24 hour extended release) 300 MG PO (08:34)
[2024-10-12] MEDS: MUCINEX 600 MG PO ×2 (08:34→20:48)
[2024-10-12] MEDS: ZOLOFT 100 MG PO (08:34)
[2024-10-12] MEDS: DESENEX/MITRAZOL/ZEASORB 1 APPLIC TOPICAL ×2 (08:35→20:47)
[2024-10-12] MEDS: LASIX 40 MG IV ×2 (08:35→15:44)
[2024-10-12 09:10] LABS: Hematocrit 42.3 % (37.0-47.0); Hemoglobin 13.5 g/dL (12.0-16.0); Mean Corp Hgb Conc. 31.9 g/dL (33.0-37.0); Mean Corpuscular Hgb 32.6 pg (27.0-31.0); Mean Corpuscular Volume 102.2 fL (81.0-99.0); Mean Platelet Volume 10.1 fL (7.4-10.4); Platelet Count 332 10^3/uL (130-400); Red Blood Cell Count 4.14 10^6/uL (4.20-5.40); Red Cell Dist. Width 15.7 % (11.5-14.5); White Blood Cell Count 13.8 10^3/uL (4.8-10.8)
[2024-10-12 09:46] LABS: Blood Urea Nitrogen 50 mg/dl (7-17); Calcium 9.4 mg/dl (8.4-10.2); Chloride 93 mmol/L (98-107); Estimated Creatinine Clearance 35 ml/min; Glucose 95 mg/dl (70-99); Potassium 4.5 mmol/L (3.5-5.1); Sodium 143 mmol/L (135-145); eGFR 31.27
[2024-10-12 09:56] LABS: Carbon Dioxide 42 mmol/L (22-30)
--- NOTE | 2024-10-12 10:24 | W.PN.CD ---
Today's Communication / Plan
-
Recommend right and left heart catheterization, she will consider.
Continue to trial diuresis, close monitoring of creatinine.
Impression / Plan
-
IMPRESSION/PLAN: 74F with HFpEF, COPD (steroid & O2 dependent), and chronic back pain on palliative care at home ([facility]), presented with shortness of breath.
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
HFpEF, acute on chronic
-New reduction in EF to 35 to 40%.
-Weight is up since admission, blood pressure has not supported diuresis attempts
-Slight bump in creatinine since admission as well.
-Recommend right and left heart catheterization on Tuesday for full evaluation, and best treatment course. She is not sure she is agreeable to this. She will consider over the weekend and let us know. Plan would be for Tuesday if agreeable.
-Will attempt to continue with diuresis with furosemide 40 mg IV twice daily, this requires intensive monitoring given her underlying CKD
-Dry weight to be determined
-Case management to coffey SGLT2i, renal function may limit her GDMT
-Heart failure education
-Trend daily weight, I/O, and BMP with diuresis
Abnormal troponin, likely nonischemic myocardial injury in the setting of acute heart failure
-Chest pain-free
-No acute ischemia on EKG
-Okay to stop trending as it is downtrending
Back pain
-This is her main complaint
-Continue home pain control. Followed by palliative.
CKD, follow with diuresis
Valvular heart disease
-Mild to moderate mitral regurgitation
-Low gradient aortic stenosis---?severity as calcified with restricted motion. But doesn't have the murmur of severe stenosis
-Moderate aortic regurgitation
COPD, steroid and oxygen dependent
-Reported trial of increased steroids prior to admission
Former tobacco use, continue cessation recommended
Night terrors, she is very concerned about this, per primary
SUBJECTIVE:
She still short of breath, has complete orthopnea per her report. She is wheezing. She has abdominal bloating.
TTE 10/10/24:
CONCLUSIONS
Normal left ventricular size with moderately reduced systolic function. LVEF
35-40%. Global hypokinesis.
Normal RV size and function.
Moderate mitral regurgitation.
Mild low-flow low gradient aortic stenosis.
Moderate aortic regurgitation.
Mild tricuspid regurgitation.
Compared to prior echocardiogram on 04/18/2024, LV function has decreased from
60% to 35-40%. Valvular disease is stable..
Physical Exam
Vital Signs/Labs
Vital Signs
Temp Pulse Resp BP Pulse Ox
97.3 F 72 20 102/60 96
10/12/24 07:11 10/12/24 08:35 10/12/24 07:11 10/12/24 08:35 10/12/24 07:11
10/11/24 10/12/24 10/13/24
06:59 06:59 06:59
Actual Weight 92.59 kg 92.714 kg
10/12/24 08:16
10/12/24 08:16
Magnesium 2.1 mg/dl (1.6-2.3) 10/09/24 03:30
10/08/24
20:56
[id number] Pept [id number]
Physical Exam
Constitutional: No acute distress
Cardiovascular: Rhythm & rate is regular, Pedal edema present and Other (Heart sounds caudally displaced)
Respiratory: Respiratory effort normal, Crackles Absent and Wheeze Present
Neuro/Psych: AO x 3
Data Reviewed
-
Date of Service: October 12, 2024
Medical Decision Making: Review of Case with other Provider (Reviewed with , difficult situation to manage without right and left heart cath. Will try to do our best with medical therapy as she is not readily agreeing to procedure at this
time.)
EKG: Other (Sinus with PVCs on telemetry no need then likely cardiac induced I say we really push her to get the right and left heart cath and then we can call them if needed)
--- NOTE | 2024-10-12 13:29 | W.PN.HOSP.TC ---
Today's Communication/Plan
-
see note
Assessment / Plan
Assessment / Plan
TTE
Normal left ventricular size with moderately reduced systolic function. LVEF 35-40%. Global hypokinesis.
Normal RV size and function.
Moderate mitral regurgitation.
Mild low-flow low gradient aortic stenosis.
Moderate aortic regurgitation.
Mild tricuspid regurgitation.

Acute systolic hf
-Echo April 2024: EF 55-60%. Mild Aortic Stenosis, Mild/Moderate Mitral Regurg
-TTE this admission showing decline in EF to 35-40% with global hypokinesis
-Probnp elevated from 3250 in aug 07 to [id number] this admission.
-Cardiology following and help appreciated.
-GDMT will be limited with Hypotension episode, will need reattempt at lower dose reinitiation of ARB/Aldactone
-Encourage standing weight scale for better assessment of diuretic response
-Continue IV Lasix 80 mg twice daily
-Possible consideration of ischemic eval/LHC next week if renal function remains stable.
Hypotension - Improved
-Patient hypotensive with systolic in low 80s, patient feeling lethargic tired
-Patient got first dose of valsartan/Aldactone later in the evening possibly contributing
-Blood pressure better today with systolic 110 and 120 range
-Will try to start blood pressure medication from tomorrow if kidney function improved
CKD Stage III
-Minimal increase in creatinine to 1.7 today, was 1.5 yesterday
-Likely from Hypotension episode day before
-Will continue diuretics for now, not much weight change - lowest this admission was ~ 87kg, currently 92kg.
Metabolic alkalosis
-Likely from diuresis. Patient was having minimal nausea just
-Diamox 250mg bid ordered for 4 doses, stop if renal function declines or alkalosis resolved.
Non-Ischemic Myocardial Injury secondary to Acute Heart Failure
-Continue to trend troponin
Chronic Hypoxic Respiratory Failure
-on home o2 2-3 L continuously
-Continue supplemental oxygen as prior to admission
-o2 requirement stable
Visual hallucination
-Patient reported of having visual hallucination
-Venous blood gas ruled out any CO2 narcosis
-Steroid related? currently on prednisone 10mg/d
-No h/o of psych issues.
COPD- no acute exacerbation
-Patient finished short course of steroids/azithromycin without much help
-Transition Breztri to Pulmicort and DuoNeb during hospitalization
-Continue prednisone 10mg/d
Chronic Back Pain secondary to L2 Compression Fracture
-Continue Tylenol and Oxycodone as prior to admission
Anxiety/Depression
-Continue bupropion and sertraline
Normocytic anemia
-Hbg close to baseline
Mild aortic stenosis
Moderate mitral regurgitation
Chronic back pain with lumbar compression fracture
Anxiety/depression
Morbid obesity
Obstructive sleep apnea
DVT Proph: SC Heparin
Code Status: Full Code
Total time spent : 53 mins
Anticipated Discharge: > 48 hours
Subjective/Interval History
-
Date of Service: October 12, 2024
Objective Data
-
Labs:
Laboratory Results
10/12/24
08:16
WBC 13.8 H
Hgb 13.5
Hct 42.3
Plt Count 332
Sodium 143
Potassium 4.5
Chloride 93 L
Carbon Dioxide 42 H
BUN 50 H
Creatinine 1.7 H
Glucose 95
Calcium 9.4
Vital Signs:
Vital Signs
Temp Pulse Resp BP Pulse Ox
98 F 88 20 114/52 97
10/12/24 11:51 10/12/24 11:51 10/12/24 11:51 10/12/24 11:51 10/12/24 11:51
I&O
10/11/24 10/12/24 10/13/24
06:59 06:59 06:59
Intake Total 380 / 380 520 / 520
Output Total 700 / 700 600 / 600
Balance -320 / -320 -80 / -80
[2024-10-12] MEDS: DIAMOX 250 MG PO ×2 (13:47→20:48)
[2024-10-12] MEDS: FLEXERIL 5 MG PO (16:23)
[2024-10-12] MEDS: TYLENOL 650 MG PO (16:23)
--- NOTE | 2024-10-12 17:05 | CM ---
Cardiology involved
Pt said she may need a cardiac cath . She is unsure if she wants it.
PT OT indicate Sf.
Pt requested [facility] .
VA placed in care port.
PLAN Probable SNF possible [facility] if accepted.
[2024-10-13] VITALS (9 sets, daily range): BP systolic 74–125; BP diastolic 54–67; BMI 28.5
[2024-10-13 06:47] LABS: Hematocrit 41.8 % (37.0-47.0); Hemoglobin 12.6 g/dL (12.0-16.0); Mean Corp Hgb Conc. 30.1 g/dL (33.0-37.0); Mean Corpuscular Hgb 31.2 pg (27.0-31.0); Mean Corpuscular Volume 103.5 fL (81.0-99.0); Mean Platelet Volume 10.2 fL (7.4-10.4); Platelet Count 321 10^3/uL (130-400); Red Blood Cell Count 4.04 10^6/uL (4.20-5.40); Red Cell Dist. Width 15.9 % (11.5-14.5); White Blood Cell Count 15.4 10^3/uL (4.8-10.8)
[2024-10-13 07:05] LABS: Blood Urea Nitrogen 55 mg/dl (7-17); Carbon Dioxide 39 mmol/L (22-30); Chloride 91 mmol/L (98-107); Estimated Creatinine Clearance 22 ml/min; Glucose 112 mg/dl (70-99); Potassium 3.7 mmol/L (3.5-5.1); Sodium 139 mmol/L (135-145); eGFR 18.78
[2024-10-13] MEDS: PULMICORT 0.5 MG INH ×2 (07:26→19:28)
[2024-10-13] MEDS: DUONEB 3 ML INH ×4 (07:26→19:28)
[2024-10-13] MEDS: LASIX IV (08:39)
[2024-10-13] MEDS: DIAMOX PO (08:39)
[2024-10-13] MEDS: HEPARIN 5000 UNITS SC ×2 (09:43→17:05)
[2024-10-13] MEDS: DESENEX/MITRAZOL/ZEASORB 1 APPLIC TOPICAL ×2 (09:43→20:39)
[2024-10-13] MEDS: WELLBUTRIN XL (24 hour extended release) PO (11:13)
[2024-10-13] MEDS: ZOLOFT 100 MG PO (11:14)
[2024-10-13] MEDS: DELTASONE 10 MG PO (11:14)
[2024-10-13] MEDS: MUCINEX 600 MG PO ×2 (11:14→20:39)
[2024-10-13] MEDS: TYLENOL 650 MG PO (11:31)
[2024-10-13] MEDS: MIRALAX 17 GRAMS PO (11:32)
--- NOTE | 2024-10-13 12:00 | PTCARENOTE ---
BP found to be 80/56 HR 75 while in bed. Pt denied dizziness and insisted on getting to [facility] to attempt to move bowels. BP checked while on commode which was 74/56 HR 75. Pt remained asymptomatic. Pt assisted back into bed and BP improved to 99/60 HR
88. made aware.
--- NOTE | 2024-10-13 13:15 | W.PN.HOSP.TC ---
Today's Communication/Plan
-
see note
Assessment / Plan
Assessment / Plan
TTE
Normal left ventricular size with moderately reduced systolic function. LVEF 35-40%. Global hypokinesis.
Normal RV size and function.
Moderate mitral regurgitation.
Mild low-flow low gradient aortic stenosis.
Moderate aortic regurgitation.
Mild tricuspid regurgitation.

Acute systolic hf
-Echo April 2024: EF 55-60%. Mild Aortic Stenosis, Mild/Moderate Mitral Regurg
-TTE this admission showing decline in EF to 35-40% with global hypokinesis
-Probnp elevated from 3250 in aug 07 to 68011 this admission.
-Cardiology following and help appreciated.
-GDMT will be limited with Hypotension episode, will need reattempt at lower dose reinitiation of ARB/Aldactone
-Patient worsening renal function with creatinine 2.6 today. Lasix/Diamox held in the morning
-Discussed with patient for need of LHC/RHC if renal function allows to better assess cardiac issues.
Hypotension - Recurrent
-Patient got first dose of valsartan/Aldactone later in the evening possibly contributing
-Unfortunately despite holding valsartan/Aldactone for last 48 hours patient blood pressure has been soft.
-Monitor blood pressure and if persistently low will need midodrine.
[place] on CKD Stage III
-Developing worsening renal function, creatinine up to 2.6 today. Baseline close to 1.7
-Bedside diuretics Hypotension possibly contributing to worsening renal function as well
Metabolic alkalosis
-Likely from diuresis. Patient was having minimal nausea
-Diamox was already started but held from morning due to worsening renal function
Non-Ischemic Myocardial Injury secondary to Acute Heart Failure
-Continue to trend troponin
Chronic Hypoxic Respiratory Failure
-on home o2 2-3 L continuously
-Continue supplemental oxygen as prior to admission
-o2 requirement stable
Visual hallucination
-Patient reported of having visual hallucination
-Venous blood gas ruled out any CO2 narcosis
-Steroid related? currently on prednisone 10mg/d
-No h/o of psych issues.
COPD- no acute exacerbation
-Patient finished short course of steroids/azithromycin without much help
-Transition Breztri to Pulmicort and DuoNeb during hospitalization
-Continue prednisone 10mg/d
Chronic Back Pain secondary to L2 Compression Fracture
-Continue Tylenol and Oxycodone as prior to admission
Anxiety/Depression
-Continue bupropion and sertraline
Normocytic anemia
-Hbg close to baseline
Mild aortic stenosis
Moderate mitral regurgitation
Chronic back pain with lumbar compression fracture
Anxiety/depression
Morbid obesity
Obstructive sleep apnea
DVT Proph: SC Heparin
Code Status: Full Code
Total time spent : 52 mins
Anticipated Discharge: > 48 hours
Subjective/Interval History
-
Date of Service: October 13, 2024
Patient feeling fatigued/tired
Oxygen requirement stable
No acute issues reported
Objective Data
-
Labs:
Laboratory Results
10/13/24
05:45
WBC 15.4 H
Hgb 12.6
Hct 41.8
Plt Count 321
Sodium 139
Potassium 3.7
Chloride 91 L
Carbon Dioxide 39 H
BUN 55 H
Creatinine 2.6 H
Glucose 112 H
Calcium 9.0
Vital Signs:
Vital Signs
Temp Pulse Resp BP Pulse Ox
97.6 F 88 16 99/60 97
10/13/24 07:20 10/13/24 11:55 10/13/24 11:37 10/13/24 11:55 10/13/24 07:30
I&O
10/12/24 10/13/24 10/14/24
06:59 06:59 06:59
Intake Total 520 / 520 720 / 720
Output Total 600 / 600
Balance -80 / -80 720 / 720
Review of Systems
-
Respiratory: Reports No Symptoms
Cardiac: Reports No Symptoms
Abdomen/GI: Reports No Symptoms
Physical Exam
-
General: No Apparent Distress
HEENT: Oxygen (3 L NC)
Respiratory: Wheezes and Rhonchi
Cardiac: Regular Rhythm and S1/S2; Negative Murmur
GI: Soft, Nontender and Nondistended
Genito-urinary: No Costovertebral Tender
Musculoskeletal: Edema, Right Lower Extrem and Edema, Left Lower Extrem (Left more than right)
Neuro: No Motor Deficits and Other (Somnolent)
Psych: Calm
--- NOTE | 2024-10-13 16:23 | W.PN.CD ---
Today's Communication / Plan
-
-Acute rise in creatinine up to 2.6 on 10/13/2024. Diuretic currently being held
-There were discussions between Dr. Segura and the patient regarding possible right and left heart catheterization with potential plans to proceed on Tuesday. Patient was not clear if she wanted to proceed. At this point would not proceed with
left heart catheterization until renal function improves. If there are still questions regarding patient's volume status then we can proceed with right heart catheterization and hold off on left heart catheterization. Will continue to have
discussion with patient.
Impression / Plan
-
IMPRESSION/PLAN: 74F with HFpEF, COPD (steroid & O2 dependent), and chronic back pain on palliative care at home ([facility]), presented with shortness of breath.
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
HFpEF, acute on chronic
-New reduction in EF to 35 to 40%.
-Weight is up since admission, blood pressure has not supported diuresis attempts
-Slight bump in creatinine since admission as well.
-Will attempt to continue with diuresis with furosemide 40 mg IV twice daily, this requires intensive monitoring given her underlying CKD
-Acute rise in creatinine up to 2.6 on 10/13/2024. Diuretic currently being held
-There were discussions between Dr. Segura and the patient regarding possible right and left heart catheterization with potential plans to proceed on Tuesday. Patient was not clear if she wanted to proceed. At this point would not proceed with
left heart catheterization until renal function improves. If there are still questions regarding patient's volume status then we can proceed with right heart catheterization and hold off on left heart catheterization. Will continue to have
discussion with patient.
[place]. Acute on chronic. Creatinine up to 2.6.
-May be due to a combination of lower blood pressures on 10/12/2024 and diuretic.
-Valsartan on hold
-Diuretics on hold
-Monitor renal function.
Abnormal troponin, likely nonischemic myocardial injury in the setting of acute heart failure
-Chest pain-free
-No acute ischemia on EKG
-Okay to stop trending as it is downtrending
Back pain
-This is her main complaint
-Continue home pain control. Followed by palliative.
sis
Valvular heart disease
-Mild to moderate mitral regurgitation
-Low gradient aortic stenosis---?severity as calcified with restricted motion. But doesn't have the murmur of severe stenosis
-Moderate aortic regurgitation
COPD, steroid and oxygen dependent
-Reported trial of increased steroids prior to admission
Former tobacco use, continue cessation recommended
Night terrors, she is very concerned about this, per primary
SUBJECTIVE:
She still short of breath, has complete orthopnea per her report. She is wheezing. She has abdominal bloating.
TTE 10/10/24:
CONCLUSIONS
Normal left ventricular size with moderately reduced systolic function. LVEF
35-40%. Global hypokinesis.
Normal RV size and function.
Moderate mitral regurgitation.
Mild low-flow low gradient aortic stenosis.
Moderate aortic regurgitation.
Mild tricuspid regurgitation.
Compared to prior echocardiogram on 04/18/2024, LV function has decreased from
60% to 35-40%. Valvular disease is stable..
Physical Exam
Vital Signs/Labs
Vital Signs
Temp Pulse Resp BP Pulse Ox
97.5 F 79 16 104/64 97
10/13/24 15:15 10/13/24 15:37 10/13/24 15:37 10/13/24 15:15 10/13/24 15:15
10/12/24 10/13/24 10/14/24
06:59 06:59 06:59
Actual Weight 92.714 kg 84.907 kg
10/13/24 05:45
10/13/24 05:45
Magnesium 2.1 mg/dl (1.6-2.3) 10/09/24 03:30
10/08/24
20:56
[id number] Pept [id number]
Physical Exam
Constitutional: No acute distress
Cardiovascular: Rhythm & rate is regular
Respiratory: Other (Decreased at bases no wheezes)
GI: Soft
Neuro/Psych: Alert
Data Reviewed
-
Date of Service: October 13, 2024
Medical Decision Making: Reviewed Test Results
Echo: Report Reviewed by me
X-Ray/CT/US/MRI/NUC/PET: Report Reviewed by me
Medical Tests (PFT, Pathology etc): Report Reviewed by me
Labs: Labs Reviewed by me
[2024-10-14 03:23] VITALS: BP 107/55
[2024-10-14] MEDS: HEPARIN SC (03:23)
[2024-10-14 06:00] VITALS: BMI 28.4
[2024-10-14 07:20] VITALS: BP 109/51
[2024-10-14] MEDS: PULMICORT 0.5 MG INH ×2 (07:49→15:49)
[2024-10-14] MEDS: DUONEB 3 ML INH ×4 (07:49→20:46)
[2024-10-14 08:44] LABS: Hematocrit 39.7 % (37.0-47.0); Hemoglobin 12.5 g/dL (12.0-16.0); Mean Corp Hgb Conc. 31.5 g/dL (33.0-37.0); Mean Corpuscular Hgb 31.5 pg (27.0-31.0); Mean Platelet Volume 10.3 fL (7.4-10.4); Platelet Count 311 10^3/uL (130-400); Red Blood Cell Count 3.97 10^6/uL (4.20-5.40); Red Cell Dist. Width 15.9 % (11.5-14.5); White Blood Cell Count 13.1 10^3/uL (4.8-10.8)
--- NOTE | 2024-10-14 08:56 | W.PN.HOSP.TC ---
Today's Communication/Plan
-
see note
Assessment / Plan
Assessment / Plan
TTE
Normal left ventricular size with moderately reduced systolic function. LVEF 35-40%. Global hypokinesis.
Normal RV size and function.
Moderate mitral regurgitation.
Mild low-flow low gradient aortic stenosis.
Moderate aortic regurgitation.
Mild tricuspid regurgitation.

Acute systolic hf
-Echo April 2024: EF 55-60%. Mild Aortic Stenosis, Mild/Moderate Mitral Regurg
-TTE this admission showing decline in EF to 35-40% with global hypokinesis
-Probnp elevated from 3250 in aug 07 to 12273 this admission.
-Cardiology following and help appreciated.
-GDMT will be limited with Hypotension episode, will need reattempt at lower dose reinitiation of ARB/Aldactone
-Repeat BMP pending today, cr 2.6 yesterday. Lasix/diamox on hold
-May able to get RHC for volume assessment. no LHC until renal function normalized.
-Standing scale weight showing down trend weight 84.8kg today, Falsly high weight of 92kg is from bed scale.
Hypotension - Recurrent
-Patient got first dose of valsartan/Aldactone later in the evening possibly contributing
-Unfortunately despite holding new GDMT - valsartan/Aldactone for last 48 hours patient blood pressure has been soft.
-BP remains soft , systolic in 90-110 range.
[place] on CKD Stage III
-f/u BMP today.
-Check PVR to assure no retention causing Deborah
Metabolic alkalosis
-Likely from diuresis. Patient was having minimal nausea
-got one dose of diamox, need to held further doses.
Non-Ischemic Myocardial Injury secondary to Acute Heart Failure
-Continue to trend troponin
Chronic Hypoxic Respiratory Failure
-on home o2 2-3 L continuously
-Continue supplemental oxygen as prior to admission
-o2 requirement stable
Visual hallucination - None
-Patient reported of having visual hallucination
-Venous blood gas ruled out any CO2 narcosis
-Steroid related? currently on prednisone 10mg/d
-No h/o of psych issues.
COPD- no acute exacerbation
-Patient finished short course of steroids/azithromycin without much help
-Transition Breztri to Pulmicort and DuoNeb during hospitalization
-Continue prednisone 10mg/d
Chronic Back Pain secondary to L2 Compression Fracture
-Continue Tylenol and Oxycodone as prior to admission
Anxiety/Depression
-Continue bupropion and sertraline
Normocytic anemia
-Hbg close to baseline
Mild aortic stenosis
Moderate mitral regurgitation
Chronic back pain with lumbar compression fracture
Anxiety/depression
Morbid obesity
Obstructive sleep apnea
DVT Proph: SC Heparin
Code Status: Full Code
Anticipated Discharge: > 48 hours
Subjective/Interval History
-
Date of Service: October 14, 2024
feeling fatigued/tired
no other issues reported overnight
Objective Data
-
Labs:
Laboratory Results
10/14/24
07:05
WBC 13.1 H
Hgb 12.5
Hct 39.7
Plt Count 311
Sodium Pending
Potassium Pending
Chloride Pending
Carbon Dioxide Pending
BUN Pending
Creatinine Pending
Glucose Pending
Calcium Pending
Vital Signs:
Vital Signs
Temp Pulse Resp BP Pulse Ox
97.4 F 76 16 109/51 100
10/14/24 07:20 10/14/24 07:53 10/14/24 07:53 10/14/24 07:20 10/14/24 07:53
I&O
10/13/24 10/14/24 10/15/24
06:59 06:59 06:59
Intake Total 720 / 720 480 / 480
Balance 720 / 720 480 / 480
Review of Systems
-
Respiratory: Reports Wheezing
Cardiac: Reports No Symptoms
Abdomen/GI: Reports No Symptoms
Physical Exam
-
General: No Apparent Distress
HEENT: Oxygen (3 L NC)
Respiratory: Wheezes
Cardiac: Regular Rhythm and S1/S2; Negative Murmur
GI: Soft, Nontender and Nondistended
Musculoskeletal: Edema, Right Lower Extrem and Edema, Left Lower Extrem (Left more than right)
Neuro: No Motor Deficits and Other (Somnolent)
Psych: Calm
[2024-10-14 09:34] LABS: Blood Urea Nitrogen 51 mg/dl (7-17); Calcium 9.1 mg/dl (8.4-10.2); Carbon Dioxide 38 mmol/L (22-30); Chloride 93 mmol/L (98-107); Estimated Creatinine Clearance 24 ml/min; Glucose 75 mg/dl (70-99); Potassium 3.7 mmol/L (3.5-5.1); Sodium 140 mmol/L (135-145); eGFR 21.76
[2024-10-14] MEDS: DELTASONE 10 MG PO (10:43)
[2024-10-14] MEDS: DESENEX/MITRAZOL/ZEASORB 1 APPLIC TOPICAL ×2 (10:43→20:23)
[2024-10-14] MEDS: HEPARIN 5000 UNITS SC ×2 (10:43→17:29)
[2024-10-14] MEDS: ZOLOFT 100 MG PO (10:44)
[2024-10-14] MEDS: MIRALAX 17 GRAMS PO (10:44)
[2024-10-14] MEDS: MUCINEX 600 MG PO ×2 (10:44→20:23)
[2024-10-14 11:20] VITALS: BP 105/51
--- NOTE | 2024-10-14 12:09 | CM ---
CM continues to follow for discharge planning, likely to SNF; [facility] is requested facility. Per CHRISTOPHE Fragoso supervisory at [facility] today, beds are anticipated to become available early this week.
Cardiac Cath being discussed, but will not proceed until renal function improves and pt agrees to the procedure.
Plan: CM to follow to coordinate transfer to [facility] when medically stable.
--- NOTE | 2024-10-14 12:44 | W.PN.CD ---
Today's Communication / Plan
-
Rising creatinine of 2.6 on 10/13/2024. Patient had been diuresed and also had lower blood pressures. Valsartan was discontinued and diuretics were held. Creatinine improving up to 2.3. At 1 point we discussed the possibility of left and right
heart catheterization. Patient has been reluctant to proceed. In addition would not proceed with left heart catheterization until renal function is stable. Based on discussion with patient will continue to hold diuretic and monitor renal function
as renal function improves then will consider reinitiation of diuretic dosing.
Patient is on chronic O2 at home and feels breathing at baseline. However she says her legs feel weaker than when she came in. Would recommend additional ambulation/PT.
Impression / Plan
-
IMPRESSION/PLAN: 74F with HFpEF, COPD (steroid & O2 dependent), and chronic back pain on palliative care at home ([facility]), presented with shortness of breath.
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
HFpEF, acute on chronic
-New reduction in EF to 35 to 40%.
-Weight is up since admission, blood pressure has not supported diuresis attempts
-Slight bump in creatinine since admission as well.
-Will attempt to continue with diuresis with furosemide 40 mg IV twice daily, this requires intensive monitoring given her underlying CKD
-Acute rise in creatinine up to 2.6 on 10/13/2024. Diuretic currently being held
-There were discussions between Dr. Segura and the patient regarding possible right and left heart catheterization with potential plans to proceed on Tuesday. Patient was not clear if she wanted to proceed. At this point would not proceed with
left heart catheterization until renal function improves. If there are still questions regarding patient's volume status then we can proceed with right heart catheterization and hold off on left heart catheterization. Will continue to have
discussion with patient.
[place]. Acute on chronic. Creatinine up to 2.6. Diuretics held and creatinine trending down to 2.3
-May be due to a combination of lower blood pressures on 10/12/2024 and diuretic.
-Valsartan on hold
-Diuretics on hold
-Monitor renal function which appears to be improving..
Abnormal troponin, likely nonischemic myocardial injury in the setting of acute heart failure
-Chest pain-free
-No acute ischemia on EKG
-Okay to stop trending as it is downtrending
Back pain
-This is her main complaint
-Continue home pain control. Followed by palliative.
sis
Valvular heart disease
-Mild to moderate mitral regurgitation
-Low gradient aortic stenosis---?severity as calcified with restricted motion. But doesn't have the murmur of severe stenosis
-Moderate aortic regurgitation
COPD, steroid and oxygen dependent
-Reported trial of increased steroids prior to admission
Former tobacco use, continue cessation recommended
Night terrors, she is very concerned about this, per primary
SUBJECTIVE:
She still short of breath, has complete orthopnea per her report. She is wheezing. She has abdominal bloating.
TTE 10/10/24:
CONCLUSIONS
Normal left ventricular size with moderately reduced systolic function. LVEF
35-40%. Global hypokinesis.
Normal RV size and function.
Moderate mitral regurgitation.
Mild low-flow low gradient aortic stenosis.
Moderate aortic regurgitation.
Mild tricuspid regurgitation.
Compared to prior echocardiogram on 04/18/2024, LV function has decreased from
60% to 35-40%. Valvular disease is stable..
Physical Exam
Vital Signs/Labs
Vital Signs
Temp Pulse Resp BP Pulse Ox
98.1 F 80 16 105/51 97
10/14/24 11:20 10/14/24 11:26 10/14/24 11:26 10/14/24 11:20 10/14/24 11:20
10/13/24 10/14/24 10/15/24
06:59 06:59 06:59
Actual Weight 84.907 kg 84.822 kg
10/14/24 07:05
10/14/24 07:05
Magnesium 2.1 mg/dl (1.6-2.3) 10/09/24 03:30
10/08/24
20:56
[id number]-Yhymcsoatoq Pept [id number]
Physical Exam
Constitutional: No acute distress
Cardiovascular: Rhythm & rate is regular
Respiratory: Wheeze Absent and Rhonchi Absent
GI: Soft and Non tender
Neuro/Psych: Alert
Data Reviewed
-
Date of Service: October 14, 2024
Medical Decision Making: Reviewed Test Results
Labs: Labs Reviewed by me
[2024-10-14 15:20] VITALS: BP 124/57
--- NOTE | 2024-10-14 16:12 | PTCARENOTE ---
Pt assisted into bathroom. Pt had BM and hat was in place in the front of toilet but per pt she voided and her urine missed the hat. Bladder scan post void was 0mL. Pt has been incontinent three times prior to this during this shift.
[2024-10-14 19:21] VITALS: BP 114/63
[2024-10-14] MEDS: FLEXERIL 5 MG PO (20:36)
[2024-10-14 23:11] VITALS: BP 101/54
[2024-10-15] VITALS (8 sets, daily range): BP systolic 111–140; BP diastolic 55–72; PULSE 77; O2SAT 100; BMI 28.3
[2024-10-15] MEDS: HEPARIN 5000 UNITS SC ×3 (00:57→17:27)
[2024-10-15] MEDS: DUONEB 3 ML INH ×3 (07:10→15:17)
[2024-10-15] MEDS: PULMICORT 0.5 MG INH (07:10)
--- NOTE | 2024-10-15 07:58 | PTCARENOTE ---
Upon rounding patients INT was on side table. Patient is Oriented x3. IV team called to place new line.
--- NOTE | 2024-10-15 08:28 | W.PN.CD ---
Today's Communication / Plan
-
Continues to have back pain which is main complaint
Weight is improving without diuresis?
Continue to hold diuretics today
Impression / Plan
-
IMPRESSION/PLAN: 74F with HFpEF, COPD (steroid & O2 dependent), and chronic back pain on palliative care at home ([facility]), presented with shortness of breath.
Primary injection mold technician: Dr. 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
HFpEF, acute on chronic - However she does not appear volume overloaded
-New reduction in EF to 35 to 40%.
-Weight has been downtrending at 186 lbs today without diuresis
-Cr 2.3 on 10/14 10/15 pending
-Continue holding diuretics for now Cr coming down
- GDMT: [facility] on hold for [place], BB on hold for COPD and acute HF, MRA on hold, consider SGLT2i
-There were discussions between Dr. Segura and the patient regarding possible right and left heart catheterization with potential plans to proceed on Tuesday, however patient does not want that at this time and her weight is comign down and Cr
improving
[place]. Acute on chronic. Creatinine up to 2.6 10/14 2.3 10/15 it is pending
-May be due to a combination of lower blood pressures on 10/12/2024 and diuretic.
-Valsartan on hold
-Diuretics on hold
-Monitor renal function which appears to be improving..
Abnormal troponin, likely nonischemic myocardial injury in the setting of acute heart failure
-Chest pain-free
-No acute ischemia on EKG
-Okay to stop trending as it is downtrending
Back pain
-This is her main complaint
-Continue home pain control. Followed by palliative.
Valvular heart disease
-Mild to moderate mitral regurgitation
-Low gradient aortic stenosis---?severity as calcified with restricted motion. But doesn't have the murmur of severe stenosis
-Moderate aortic regurgitation
COPD, steroid and oxygen dependent
-Reported trial of increased steroids prior to admission
Former tobacco use, continue cessation recommended
Night terrors, she is very concerned about this, per primary
SUBJECTIVE:
She still short of breath, has complete orthopnea per her report. She is wheezing. She has abdominal bloating.
TTE 10/10/24:
CONCLUSIONS
Normal left ventricular size with moderately reduced systolic function. LVEF
35-40%. Global hypokinesis.
Normal RV size and function.
Moderate mitral regurgitation.
Mild low-flow low gradient aortic stenosis.
Moderate aortic regurgitation.
Mild tricuspid regurgitation.
Compared to prior echocardiogram on 04/18/2024, LV function has decreased from
60% to 35-40%. Valvular disease is stable..
Physical Exam
Vital Signs/Labs
Vital Signs
Temp Pulse Resp BP Pulse Ox
98.1 F 78 20 134/70 99
10/15/24 08:09 10/15/24 08:09 10/15/24 08:09 10/15/24 08:09 10/15/24 08:09
10/14/24 10/15/24 10/16/24
06:59 06:59 06:59
Actual Weight 187 lb 186 lb 5 oz
10/14/24 07:05
Magnesium 2.1 mg/dl (1.6-2.3) 10/09/24 03:30
10/08/24
20:56
Xfw-[id number] Pept [id number]
Physical Exam
Constitutional: No acute distress
EENT: Anicteric
Cardiovascular: Rhythm & rate is regular
Respiratory: Wheeze Present and Other (poor air movement b/l )
GI: Soft
Neuro/Psych: AO x 3
Data Reviewed
-
Date of Service: October 15, 2024
EKG: Tracing Personally Visualized and interpreted (sr)
Echo: Report Reviewed by me
Labs: Labs Reviewed by me
--- NOTE | 2024-10-15 08:56 | PTCARENOTE ---
Patient refusing to have labs drawn and another IV place. Hospitalist made aware.
[2024-10-15] MEDS: DELTASONE 10 MG PO (10:02)
[2024-10-15] MEDS: ZOLOFT 100 MG PO (10:03)
[2024-10-15] MEDS: MUCINEX 600 MG PO ×2 (10:03→21:42)
[2024-10-15] MEDS: MIRALAX 17 GRAMS PO (10:05)
[2024-10-15] MEDS: DESENEX/MITRAZOL/ZEASORB 1 APPLIC TOPICAL ×2 (10:05→21:42)
--- NOTE | 2024-10-15 15:52 | VATNOTE ---
Client removed IV line during the night. After 2 attempts to establish peripheral site and 2 failed lab draw attempts, client refused any other attempts. Dr. Brady placed order for picc/midline due to limited venous access. When procedure was
explained to client she then refused that as well. She was now agreeable to one more attempt of a peripheral site. Peripheral IV site established on first attempt and blood work drawn. Primary care RN and Dr. Brady notified.
--- NOTE | 2024-10-15 16:55 | W.PN.HOSP.TC ---
Today's Communication/Plan
-
Hold Lasix
Monitor creatinine.
Continue oxygen supplementation
Assessment / Plan
Assessment / Plan

Impression:
Acute systolic CHF.
Conditions prior to admission:
Chronic hypoxic respiratory failure on home O2 at 4 L.
Advanced COPD
Valvular heart disease including mild to moderate aortic stenosis, mild to moderate mitral regurgitation.
Anemia of chronic disease per
CKD stage III.
Chronic compression fractures.
Osteoporosis.
Anxiety/depression
Plan
Acute systolic hf
-Echo April 2024: EF 55-60%. Mild Aortic Stenosis, Mild/Moderate Mitral Regurg
-TTE this admission showing decline in EF to 35-40% with global hypokinesis
-Probnp elevated from 3250 in aug 07 to 51297 this admission.
-GDMT will be limited with Hypotension episode, will need reattempt at lower dose reinitiation of ARB/Aldactone
-Creatinine rising and peaked at 2.6. Hold Lasix and Diamox
-May able to get RHC for volume assessment. no LHC until renal function normalized.
-Standing scale weight showing down trend weight 84.8kg today, Falsly high weight of 92kg is from bed scale.
Hypotension - Recurrent
-Patient got first dose of valsartan/Aldactone later in the evening possibly contributing
-Unfortunately despite holding new GDMT - valsartan/Aldactone for last 48 hours patient blood pressure has been soft.
-BP remains soft , systolic in 90-110 range.
DEBORAH on CKD Stage III
Follow creatinine
-Check PVR to assure no retention causing Deborah
Metabolic alkalosis
-Likely from diuresis. Patient was having minimal nausea
-got one dose of diamox, need to held further doses.
Non-Ischemic Myocardial Injury secondary to Acute Heart Failure
-Continue to trend troponin
COPD without acute exacerbation
Chronic Hypoxic Respiratory Failure
-on home o2 2-4 L continuously
-Continue supplemental oxygen as prior to admission
-o2 requirement stable
-Patient finished short course of steroids/azithromycin without much help
-Transition Breztri to Pulmicort and DuoNeb during hospitalization
-Continue prednisone 10mg/d
Visual hallucination - None
-Patient reported of having visual hallucination
-Venous blood gas ruled out any CO2 narcosis
-Steroid related? currently on prednisone 10mg/d
-No h/o of psych issues.
Chronic Back Pain secondary to L2 Compression Fracture
-Continue Tylenol and Oxycodone as prior to admission
Anxiety/Depression
-Continue bupropion and sertraline
Normocytic anemia
-Hbg close to baseline
Chronic back pain with lumbar compression fracture
Morbid obesity
Obstructive sleep apnea
DVT Proph: SC Heparin
Code Status: Full Code
Anticipated Discharge: 24 - 48 hours
Subjective/Interval History
-
Date of Service: October 15, 2024
Objective Data
-
Labs:
Laboratory Results
10/15/24 10/15/24 10/15/24
08:28 15:37 16:10
Sodium Cancelled Cancelled Pending
Potassium Cancelled Cancelled Pending
Chloride Cancelled Cancelled Pending
Carbon Dioxide Cancelled Cancelled Pending
BUN Cancelled Cancelled Pending
Creatinine Cancelled Cancelled Pending
Glucose Cancelled Cancelled Pending
Calcium Cancelled Cancelled Pending
Vital Signs:
Vital Signs
Temp Pulse Resp BP Pulse Ox
98 F 70 20 140/71 99
10/15/24 16:04 10/15/24 16:04 10/15/24 16:04 10/15/24 16:04 10/15/24 16:04
I&O
10/14/24 10/15/24 10/16/24
06:59 06:59 06:59
Intake Total 480 / 480 660 / 660 240 / 240
Balance 480 / 480 660 / 660 240 / 240
Physical Exam
-
General: No Apparent Distress
HEENT: Oxygen (3 L NC)
Respiratory: Wheezes
Cardiac: Regular Rhythm and S1/S2; Negative Murmur
GI: Soft, Nontender and Nondistended
Musculoskeletal: Edema, Right Lower Extrem and Edema, Left Lower Extrem (Left more than right)
Neuro: No Motor Deficits and Other (Somnolent)
Psych: Calm
[2024-10-15 17:42] LABS: Blood Urea Nitrogen 46 mg/dl (7-17); Calcium 9.6 mg/dl (8.4-10.2); Carbon Dioxide 31 mmol/L (22-30); Chloride 93 mmol/L (98-107); Estimated Creatinine Clearance 33 ml/min; Glucose 166 mg/dl (70-99); Sodium 137 mmol/L (135-145); eGFR 31.27
[2024-10-15] MEDS: PULMICORT INH (19:54)
[2024-10-15] MEDS: DUONEB INH (19:54)
[2024-10-15] MEDS: FLEXERIL 5 MG PO (21:47)
[2024-10-16] VITALS (8 sets, daily range): BP systolic 114–135; BP diastolic 60–72; PULSE 83; O2SAT 100; BMI 28.3
[2024-10-16] MEDS: HEPARIN 5000 UNITS SC ×4 (00:36→23:02)
[2024-10-16 05:50] LABS: Blood Urea Nitrogen 40 mg/dl (7-17); Calcium 9.5 mg/dl (8.4-10.2); Carbon Dioxide 32 mmol/L (22-30); Chloride 95 mmol/L (98-107); Estimated Creatinine Clearance 31 ml/min; Glucose 87 mg/dl (70-99); Potassium 4.4 mmol/L (3.5-5.1); Sodium 137 mmol/L (135-145)
[2024-10-16] MEDS: PULMICORT 0.5 MG INH ×2 (07:23→19:22)
[2024-10-16] MEDS: DUONEB 3 ML INH ×4 (07:23→19:22)
[2024-10-16] MEDS: ZOLOFT 100 MG PO (09:55)
[2024-10-16] MEDS: MUCINEX 600 MG PO ×2 (09:56→19:56)
[2024-10-16] MEDS: MIRALAX PO (10:00)
--- NOTE | 2024-10-16 10:10 | W.PN.CD ---
Today's Communication / Plan
-
Possible RHC/LHC tomorrow
Hold diuretic today
Impression / Plan
-
IMPRESSION/PLAN: 74F with HFpEF, COPD (steroid & O2 dependent), and chronic back pain on palliative care at home ([facility]), presented with shortness of breath.
Primary therapist asst: Dr. 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
HFpEF, acute on chronic - However she does not appear volume overloaded
-New reduction in EF to 35 to 40%.
-Weight has been downtrending at 186 lbs today without diuresis
-Cr back to baseline around 1.5-1.8, 1.8 today 10/16
-Continue holding diuretics for now Cr coming down
- GDMT: [facility] on hold for [place], BB on hold for COPD and acute HF, MRA on hold, consider SGLT2i
-Discussed RHC and LHC for tomorrow she will think and let us know
[place]. Acute on chronic. Creatinine up to 2.6 10/14 2.3 10/15 it is pending
-May be due to a combination of lower blood pressures on 10/12/2024 and diuretic.
-Valsartan on hold
-Diuretics on hold
-Monitor renal function which appears to be improving..
Abnormal troponin, likely nonischemic myocardial injury in the setting of acute heart failure
-Chest pain-free
-No acute ischemia on EKG
-Okay to stop trending as it is downtrending
Back pain
-This is her main complaint
-Continue home pain control. Followed by palliative.
Valvular heart disease
-Mild to moderate mitral regurgitation
-Low gradient aortic stenosis---?severity as calcified with restricted motion. But doesn't have the murmur of severe stenosis
-Moderate aortic regurgitation
COPD, steroid and oxygen dependent
-Reported trial of increased steroids prior to admission
Former tobacco use, continue cessation recommended
Night terrors, she is very concerned about this, per primary
SUBJECTIVE:
Overall, feeling improved
TTE 10/10/24:
CONCLUSIONS
Normal left ventricular size with moderately reduced systolic function. LVEF
35-40%. Global hypokinesis.
Normal RV size and function.
Moderate mitral regurgitation.
Mild low-flow low gradient aortic stenosis.
Moderate aortic regurgitation.
Mild tricuspid regurgitation.
Compared to prior echocardiogram on 04/18/2024, LV function has decreased from
60% to 35-40%. Valvular disease is stable..
Physical Exam
Vital Signs/Labs
Vital Signs
Temp Pulse Resp BP Pulse Ox
97.4 F 78 14 135/67 100
10/16/24 07:04 10/16/24 07:30 10/16/24 07:30 10/16/24 07:04 10/16/24 07:30
10/15/24 10/16/24 10/17/24
06:59 06:59 06:59
Actual Weight 186 lb 5 oz 186 lb
10/14/24 07:05
10/16/24 04:25
Magnesium 2.1 mg/dl (1.6-2.3) 10/09/24 03:30
10/08/24
20:56
Kvh-T-Dtyzcfhzpru Pept [id number]
Physical Exam
Constitutional: No acute distress
EENT: Anicteric
Cardiovascular: Rhythm & rate is regular and Pedal edema is absent
Respiratory: Respiratory effort normal and Lungs clear to auscul.
GI: Soft
Neuro/Psych: AO x 3
Data Reviewed
-
Date of Service: October 16, 2024
EKG: Tracing Personally Visualized and interpreted (sr)
Echo: Report Reviewed by me
Labs: Labs Reviewed by me
[2024-10-16] MEDS: DELTASONE 10 MG PO (10:11)
[2024-10-16] MEDS: TYLENOL 650 MG PO ×2 (10:17→19:56)
[2024-10-16] MEDS: FLEXERIL 5 MG PO ×2 (10:17→19:56)
[2024-10-16] MEDS: DESENEX/MITRAZOL/ZEASORB 1 APPLIC TOPICAL ×2 (10:19→19:56)
--- NOTE | 2024-10-16 11:41 | W.PN.HOSP.TC ---
Today's Communication/Plan
-
Hold diuretics.
Monitor creatinine
For catheterization in a.m.
Assessment / Plan
Assessment / Plan

Impression:
Acute systolic CHF.
Conditions prior to admission:
Chronic hypoxic respiratory failure on home O2 at 4 L.
Advanced COPD
Valvular heart disease including mild to moderate aortic stenosis, mild to moderate mitral regurgitation.
Anemia of chronic disease per
CKD stage III.
Chronic compression fractures.
Osteoporosis.
Anxiety/depression
Plan
Acute systolic hf
-Echo April 2024: EF 55-60%. Mild Aortic Stenosis, Mild/Moderate Mitral Regurg
-TTE this admission showing decline in EF to 35-40% with global hypokinesis
-Probnp elevated from 3250 in aug 07 to 17487 this admission.
-GDMT will be limited with Hypotension episode, will need reattempt at lower dose reinitiation of ARB/Aldactone
-Creatinine rising and peaked at 2.6. Hold Lasix and Diamox
-RHC/LHC in am
-Hold diuretics
Hypotension - Recurrent
-Patient got first dose of valsartan/Aldactone later in the evening possibly contributing
-Unfortunately despite holding new GDMT - valsartan/Aldactone for last 48 hours patient blood pressure has been soft.
-BP remains soft , systolic in 90-110 range.
DEBORAH on CKD Stage III
Follow creatinine
-Check PVR to assure no retention causing Deborah
Metabolic alkalosis
-Likely from diuresis. Patient was having minimal nausea
-got one dose of diamox, need to held further doses.
Non-Ischemic Myocardial Injury secondary to Acute Heart Failure
-Continue to trend troponin
COPD without acute exacerbation
Chronic Hypoxic Respiratory Failure
-on home o2 2-4 L continuously
-Continue supplemental oxygen as prior to admission
-o2 requirement stable
-Patient finished short course of steroids/azithromycin without much help
-Transition Breztri to Pulmicort and DuoNeb during hospitalization
-Continue prednisone 10mg/d
Visual hallucination - None
-Patient reported of having visual hallucination
-Venous blood gas ruled out any CO2 narcosis
-Steroid related? currently on prednisone 10mg/d
-No h/o of psych issues.
Chronic Back Pain secondary to L2 Compression Fracture
-Continue Tylenol and Oxycodone as prior to admission
Anxiety/Depression
-Continue bupropion and sertraline
Normocytic anemia
-Hbg close to baseline
Chronic back pain with lumbar compression fracture
Morbid obesity
Obstructive sleep apnea
DVT Proph: SC Heparin
Code Status: Full Code
Anticipated Discharge: 24 - 48 hours
Subjective/Interval History
-
Date of Service: October 16, 2024
Objective Data
-
Labs:
Laboratory Results
10/16/24
04:25
Sodium 137
Potassium 4.4
Chloride 95 L
Carbon Dioxide 32 H
BUN 40 H
Creatinine 1.8 H
Glucose 87
Calcium 9.5
Vital Signs:
Vital Signs
Temp Pulse Resp BP Pulse Ox
97.4 F 78 14 135/67 100
10/16/24 07:04 10/16/24 07:30 10/16/24 07:30 10/16/24 07:04 10/16/24 07:30
I&O
10/15/24 10/16/24 10/17/24
06:59 06:59 06:59
Intake Total 660 / 660 480 / 480
Balance 660 / 660 480 / 480
Physical Exam
-
General: No Apparent Distress
HEENT: Oxygen (3 L NC)
Respiratory: Wheezes
Cardiac: Regular Rhythm and S1/S2; Negative Murmur
GI: Soft, Nontender and Nondistended
Musculoskeletal: Edema, Right Lower Extrem and Edema, Left Lower Extrem (Left more than right)
Neuro: No Motor Deficits and Other (Somnolent)
Psych: Calm
--- NOTE | 2024-10-16 16:56 | CM ---
Cardiology involved
Pt said she may need a cardiac cath.
PT OT indicate Snf.
As per Elvi from [facility] pt has 18 medicare days of snf left.Elvi requested financial forms to be completed.Form given after completion fax back to [phone]..
[facility]
report [phone]
fax [phone]
PLAN Probable SNF possible [facility] if accepted.
[2024-10-17 03:37] VITALS: BP 115/63
[2024-10-17 06:00] VITALS: BMI 28.3
[2024-10-17] MEDS: DUONEB 3 ML INH ×4 (07:40→19:03)
[2024-10-17] MEDS: PULMICORT 0.5 MG INH ×2 (07:41→19:03)
[2024-10-17 07:45] VITALS: BP 121/61
[2024-10-17] MEDS: ZOLOFT 100 MG PO (08:02)
[2024-10-17] MEDS: MUCINEX 600 MG PO ×2 (08:02→19:53)
[2024-10-17] MEDS: DELTASONE 10 MG PO (08:03)
[2024-10-17] MEDS: HEPARIN 5000 UNITS SC ×3 (08:04→23:10)
[2024-10-17] MEDS: DESENEX/MITRAZOL/ZEASORB 1 APPLIC TOPICAL ×2 (08:07→19:54)
--- NOTE | 2024-10-17 08:20 | W.PN.CD ---
Today's Communication / Plan
-
Start metoprolol 12.5 mg twice daily
If creatinine is stable, resume valsartan 40 mg twice daily.
If creatinine is stable, resume home p.o. Lasix 20 mg daily tomorrow.
She will get cardiac MRI for HFrEF evaluation as an outpatient since she does not want to go forward with [facility]
Possible home tomorrow
Impression / Plan
-
IMPRESSION/PLAN: 74F with HFrEF (EF 35-40%), COPD (steroid & O2 dependent), and chronic back pain on palliative care at home ([facility]), presented with shortness of breath.
Primary french teacher: Dr. 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
HFrEF, new this admission
-Previously HFpEF, new reduction in EF to 35 to 40%.
-Appears euvolemic. If labs stable, resume home p.o. Lasix 20 mg daily tomorrow.
-GDMT:
--ARB on hold for [place] (if Cr stable, resume Valsartan 40mg BID; Entresto too expensive)
--start Metoprolol 12.5mg q12h (low-dose due to severe COPD)
--MRA on hold for [place] (will readdress outpatient)
--SGLT2i not affordable
-cMRI as outpatient for further evaluation
-She does not want [facility] this admission
[place], improving.
-Acute on chronic. Creatinine up to 2.6 10/14. Baseline 1.5-1.8
-Due to combination of diuresis, ARB initiation, and MRI
-If creatinine stable today, resume low-dose ARB
-If creatinine stable, resume home p.o. Lasix 20 mg daily tomorrow
Abnormal troponin, likely nonischemic myocardial injury in the setting of acute heart failure
-Chest pain-free
-No acute ischemia on EKG
-Okay to stop trending as it is downtrending
Back pain
-This is her main complaint
-Continue home pain control. Followed by palliative.
Valvular heart disease
-Mild to moderate mitral regurgitation
-Low gradient aortic stenosis---?severity as calcified with restricted motion. But doesn't have the murmur of severe stenosis
-Moderate aortic regurgitation
COPD, steroid and oxygen dependent
-Reported trial of increased steroids prior to admission
Former tobacco use, continue cessation recommended
Night terrors, she is very concerned about this, per primary
SUBJECTIVE:
Overall, feeling improved. She does not want to go forward with [facility]. Weight is stable at 84.4 kg. Diuresis held again yesterday. Labs pending.
TTE 10/10/24:
CONCLUSIONS
Normal left ventricular size with moderately reduced systolic function. LVEF
35-40%. Global hypokinesis.
Normal RV size and function.
Moderate mitral regurgitation.
Mild low-flow low gradient aortic stenosis.
Moderate aortic regurgitation.
Mild tricuspid regurgitation.
Compared to prior echocardiogram on 04/18/2024, LV function has decreased from
60% to 35-40%. Valvular disease is stable..
Physical Exam
Vital Signs/Labs
Vital Signs
Temp Pulse Resp BP Pulse Ox
97.4 F 79 17 115/63 97
10/17/24 03:37 10/17/24 07:43 10/17/24 07:43 10/17/24 03:37 10/17/24 07:43
10/16/24 10/17/24 10/18/24
06:59 06:59 06:59
Actual Weight 84.368 kg 84.482 kg
10/14/24 07:05
Magnesium 2.1 mg/dl (1.6-2.3) 10/09/24 03:30
10/08/24
20:56
Wye-Y-Nvapowfmvqc Pept [id number]
Physical Exam
Constitutional: No acute distress and Comfortable
Cardiovascular: Rhythm & rate is regular, Pedal edema is absent, JVD pressure is normal, S1S2 is normal and Murmur/rub/gallop absent
Respiratory: Respiratory effort normal, Crackles Absent and Wheeze Present
Data Reviewed
-
Date of Service: October 17, 2024
Medical Decision Making: Reviewed Test Results, Independent Historian Assessment, Test Interpretation and Review of Case with other Provider
EKG: Tracing Personally Visualized and interpreted
Echo: Report Reviewed by me
Labs: Labs Reviewed by me
[2024-10-17] MEDS: MIRALAX PO (08:50)
[2024-10-17] MEDS: TOPROL XL 12.5 MG PO ×2 (09:26→19:53)
[2024-10-17] MEDS: TYLENOL 650 MG PO ×2 (09:30→19:53)
[2024-10-17] MEDS: FLEXERIL 5 MG PO ×2 (09:31→19:53)
[2024-10-17 09:37] LABS: Blood Urea Nitrogen 37 mg/dl (7-17); Calcium 9.8 mg/dl (8.4-10.2); Carbon Dioxide 31 mmol/L (22-30); Chloride 97 mmol/L (98-107); Estimated Creatinine Clearance 35 ml/min; Glucose 86 mg/dl (70-99); Sodium 139 mmol/L (135-145); eGFR 33.63
--- NOTE | 2024-10-17 09:47 | CM ---
Addendum entered by Elida Hurd 10/17/24 13:43:
Per Elvi from [facility] they are unable to offer a bed.
Discussed with patient other options. LM with daughter Alma Delia.
CM to follow up to place other referrals [facility].
Original Note:
Patient for cardiac cath today.
As per Elvi from [facility] pt has 18 medicare days of snf left.
Financial forms sent to Elvi at [facility] states she would need approval from [employer] to accept
PLAN: SNF, Await approval from [facility]
report [phone]
fax [phone]
[2024-10-17 10:58] VITALS: BP 129/65
[2024-10-17 15:13] VITALS: BP 101/65
--- NOTE | 2024-10-17 16:26 | PTCARENOTE ---
Pt AAO x3, MARTINEZ; OOB to chair with assist/walker, reshma well. No c/o dizziness w/OOB activity. VSS. Telemetry:NSR with PVC's. Maintained on nc 3 lpm- pulse ox 99%, pt with (+) slight MENENDEZ; denies SOB. Abd obese, soft, reshma PO well. Incont urine;
wears Depends. Resting in chair at present, no c/o. Will continue to monitor.
--- NOTE | 2024-10-17 16:34 | W.PN.HOSP.TC ---
Today's Communication/Plan
-
Creatinine trending down to 1.6
Start losartan
Hold diuretics until tomorrow
Discharge planning
Assessment / Plan
Assessment / Plan

Impression:
Acute systolic CHF.
Conditions prior to admission:
Chronic hypoxic respiratory failure on home O2 at 4 L.
Advanced COPD
Valvular heart disease including mild to moderate aortic stenosis, mild to moderate mitral regurgitation.
Anemia of chronic disease per
CKD stage III.
Chronic compression fractures.
Osteoporosis.
Anxiety/depression
Plan
Acute systolic hf
-Echo April 2024: EF 55-60%. Mild Aortic Stenosis, Mild/Moderate Mitral Regurg
-TTE this admission showing decline in EF to 35-40% with global hypokinesis
-Probnp elevated from 3250 in aug 07 to 10840 this admission.
-GDMT will be limited with Hypotension episode, will need reattempt at lower dose reinitiation of ARB/Aldactone
-Creatinine rising and peaked at 2.6. Hold Lasix and Diamox
-Declined catheterization
-Current plan is to optimize medical therapy/GDMT with outpatient cardiology follow-up including ischemic workup
Hypotension - Recurrent
-Patient got first dose of valsartan/Aldactone later in the evening possibly contributing
-Unfortunately despite holding new GDMT - valsartan/Aldactone for last 48 hours patient blood pressure has been soft.
-BP remains soft , systolic in 90-110 range.
[place] on CKD Stage III
Follow creatinine
Metabolic alkalosis
-Likely from diuresis. Patient was having minimal nausea
-got one dose of diamox, need to held further doses.
Non-Ischemic Myocardial Injury secondary to Acute Heart Failure
-Continue to trend troponin
COPD without acute exacerbation
Chronic Hypoxic Respiratory Failure
-on home o2 2-4 L continuously
-Continue supplemental oxygen as prior to admission
-o2 requirement stable
-Patient finished short course of steroids/azithromycin without much help
-Transition Breztri to Pulmicort and DuoNeb during hospitalization
-Continue prednisone 10mg/d
Visual hallucination - None
-Patient reported of having visual hallucination
-Venous blood gas ruled out any CO2 narcosis
-Steroid related? currently on prednisone 10mg/d
-No h/o of psych issues.
Chronic Back Pain secondary to L2 Compression Fracture
-Continue Tylenol and Oxycodone as prior to admission
Anxiety/Depression
-Continue bupropion and sertraline
Normocytic anemia
-Hbg close to baseline
Chronic back pain with lumbar compression fracture
Morbid obesity
Obstructive sleep apnea
DVT Proph: SC Heparin
Code Status: Full Code
Anticipated Discharge: 24 - 48 hours
Subjective/Interval History
-
Date of Service: October 17, 2024
Objective Data
-
Labs:
Laboratory Results
10/17/24
08:33
Sodium 139
Potassium 4.0
Chloride 97 L
Carbon Dioxide 31 H
BUN 37 H
Creatinine 1.6 H
Glucose 86
Calcium 9.8
Vital Signs:
Vital Signs
Temp Pulse Resp BP Pulse Ox
97.6 F 80 14 101/65 93
10/17/24 15:13 10/17/24 15:29 10/17/24 15:29 10/17/24 15:13 10/17/24 16:23
I&O
10/16/24 10/17/24 10/18/24
06:59 06:59 06:59
Intake Total 480 / 480 840 / 840
Balance 480 / 480 840 / 840
Physical Exam
-
General: No Apparent Distress
HEENT: Oxygen (3 L NC)
Respiratory: Wheezes
Cardiac: Regular Rhythm and S1/S2; Negative Murmur
GI: Soft, Nontender and Nondistended
Musculoskeletal: Edema, Right Lower Extrem and Edema, Left Lower Extrem (Left more than right)
Neuro: No Motor Deficits and Other (Somnolent)
Psych: Calm
[2024-10-17 19:41] VITALS: BP 109/70
[2024-10-17] MEDS: DIOVAN 40 MG PO (19:53)
[2024-10-17 23:10] VITALS: BP 110/54
[2024-10-18] VITALS (11 sets, daily range): BP systolic 76–115; BP diastolic 42–85; BMI 28.3
[2024-10-18] MEDS: TYLENOL 650 MG PO (06:14)
[2024-10-18] MEDS: FLEXERIL 5 MG PO (06:14)
[2024-10-18] MEDS: DUONEB 3 ML INH ×3 (07:51→19:17)
[2024-10-18] MEDS: PULMICORT 0.5 MG INH ×2 (07:52→19:17)
[2024-10-18 09:23] LABS: Blood Urea Nitrogen 41 mg/dl (7-17); Calcium 9.6 mg/dl (8.4-10.2); Carbon Dioxide 28 mmol/L (22-30); Chloride 97 mmol/L (98-107); Estimated Creatinine Clearance 31 ml/min; Glucose 78 mg/dl (70-99); Sodium 136 mmol/L (135-145)
[2024-10-18] MEDS: DIOVAN PO (09:47)
--- NOTE | 2024-10-18 09:47 | W.PN.CD ---
Today's Communication / Plan
-
plan for L/RHC tomorrow for evaluation of new cardiomyopathy
Impression / Plan
-
IMPRESSION/PLAN: 74F with HFrEF (EF 35-40%), COPD (steroid & O2 dependent), and chronic back pain on palliative care at home ([facility]), presented with shortness of breath.
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
Cardiomyopathy, HFrEF, new this admission
-Previously HFpEF, new reduction in EF to 35 to 40%. Improved s/p IV diuresis. Will transition to lasix 20mg PO daily after cath
-GDMT:
--ARB on hold for [place] (if Cr stable, resume Valsartan 40mg BID before d/c; Entresto too expensive)
--started Metoprolol succinate 12.5mg q12h (low-dose due to severe COPD) this admission
--MRA on hold for [place] (will readdress outpatient)
--SGLT2i not affordable
-after discussion with family, she is agreeable to cardiac cath: plan for L/RHC tomorrow for evaluation of new cardiomyopathy
[place], improving.
-Acute on chronic. Creatinine up to 2.6 on 10/14. Baseline 1.5-1.8
-Due to combination of diuresis, ARB initiation, and MRA
Abnormal troponin, likely nonischemic myocardial injury in the setting of acute heart failure
-Chest pain-free
-No acute ischemia on EKG
-Okay to stop trending as it is downtrending
Back pain
-This is her main complaint
-Continue home pain control. Followed by palliative.
Valvular heart disease
-Mild to moderate mitral regurgitation
-Low gradient aortic stenosis---?severity as calcified with restricted motion. But doesn't have the murmur of severe stenosis
-Moderate aortic regurgitation
COPD, steroid and oxygen dependent
-Reported trial of increased steroids prior to admission
Former tobacco use, continue cessation recommended
Night terrors, she is very concerned about this, per primary
SUBJECTIVE:
Overall, feels better since admission.
TTE 10/10/24:
CONCLUSIONS
Normal left ventricular size with moderately reduced systolic function. LVEF
35-40%. Global hypokinesis.
Normal RV size and function.
Moderate mitral regurgitation.
Mild low-flow low gradient aortic stenosis.
Moderate aortic regurgitation.
Mild tricuspid regurgitation.
Compared to prior echocardiogram on 04/18/2024, LV function has decreased from
60% to 35-40%. Valvular disease is stable..
Physical Exam
Vital Signs/Labs
Vital Signs
Temp Pulse Resp BP Pulse Ox
98.3 F 73 16 111/85 96
10/18/24 07:30 10/18/24 07:54 10/18/24 07:54 10/18/24 07:30 10/18/24 07:54
10/17/24 10/18/24 10/19/24
06:59 06:59 06:59
Actual Weight 84.482 kg 84.51 kg
10/14/24 07:05
10/18/24 07:32
Magnesium 2.1 mg/dl (1.6-2.3) 10/09/24 03:30
10/08/24
20:56
Siz-Z-Tvaqgwjoaxz Pept [id number]
Physical Exam
Constitutional: No acute distress and Comfortable
EENT: Moist mucous membranes
Cardiovascular: Rhythm & rate is regular, Pedal edema present, JVD present and Systolic murmur present
Respiratory: Respiratory effort normal
Neuro/Psych: AO x 3
Data Reviewed
-
Date of Service: October 18, 2024
EKG: Other (Tele: SR 80s, PVC's)
Labs: Labs Reviewed by me
[2024-10-18] MEDS: HEPARIN 5000 UNITS SC ×3 (09:55→23:04)
[2024-10-18] MEDS: DESENEX/MITRAZOL/ZEASORB 1 APPLIC TOPICAL ×2 (09:57→20:48)
[2024-10-18] MEDS: MIRALAX PO (09:57)
[2024-10-18] MEDS: TOPROL XL 12.5 MG PO (09:58)
[2024-10-18] MEDS: MUCINEX 600 MG PO ×2 (09:58→20:49)
[2024-10-18] MEDS: DELTASONE 10 MG PO (09:58)
[2024-10-18] MEDS: ZOLOFT 100 MG PO (09:59)
[2024-10-18] MEDS: LOW STRENGTH ASPIRIN 324 MG PO (10:01)
[2024-10-18] MEDS: ROXICODONE 5 MG PO (10:10)
[2024-10-18] MEDS: NSS 250 IV ×2 (11:11→12:19)
--- NOTE | 2024-10-18 15:04 | W.PN.HOSP.TC ---
Today's Communication/Plan
-
With hypotension, hold ARB and Lasix
IV fluid bolus
Plan for left heart cath tomorrow
Assessment / Plan
Assessment / Plan

Impression:
Acute systolic CHF.
Conditions prior to admission:
Chronic hypoxic respiratory failure on home O2 at 4 L.
Advanced COPD
Valvular heart disease including mild to moderate aortic stenosis, mild to moderate mitral regurgitation.
Anemia of chronic disease per
CKD stage III.
Chronic compression fractures.
Osteoporosis.
Anxiety/depression
Plan
Acute systolic hf
-Echo April 2024: EF 55-60%. Mild Aortic Stenosis, Mild/Moderate Mitral Regurg
-TTE this admission showing decline in EF to 35-40% with global hypokinesis
-Probnp elevated from 3250 in aug 07 to 56449 this admission.
-GDMT will be limited with Hypotension episode, will need reattempt at lower dose reinitiation of ARB/Aldactone
-Creatinine rising and peaked at 2.6. Hold Lasix and Diamox
-Agreed for catheterization. Plan for 10/19
-Hypotensive and lethargic. Holding diuretics. Hold ARB. Bolus gently to recover BP.
[place] on CKD Stage III
Follow creatinine
Metabolic alkalosis
-Likely from diuresis. Patient was having minimal nausea
-got one dose of diamox, need to held further doses.
COPD without acute exacerbation
Chronic Hypoxic Respiratory Failure
-on home o2 2-4 L continuously
-Continue supplemental oxygen as prior to admission
-o2 requirement stable
-Patient finished short course of steroids/azithromycin without much help
-Transition Breztri to Pulmicort and DuoNeb during hospitalization
-Continue prednisone 10mg/d
Visual hallucination - None
-Patient reported of having visual hallucination
-Venous blood gas ruled out any CO2 narcosis
-Steroid related? currently on prednisone 10mg/d
-No h/o of psych issues.
Chronic Back Pain secondary to L2 Compression Fracture
-Continue Tylenol and Oxycodone as prior to admission
Anxiety/Depression
-Continue bupropion and sertraline
Normocytic anemia
-Hbg close to baseline
Chronic back pain with lumbar compression fracture
Morbid obesity
Obstructive sleep apnea
DVT Proph: SC Heparin
Code Status: Full Code
Anticipated Discharge: > 48 hours
Subjective/Interval History
-
Date of Service: October 18, 2024
Objective Data
-
Labs:
Laboratory Results
10/18/24
07:32
Sodium 136
Potassium 4.0
Chloride 97 L
Carbon Dioxide 28
BUN 41 H
Creatinine 1.8 H
Glucose 78
Calcium 9.6
Vital Signs:
Vital Signs
Temp Pulse Resp BP Pulse Ox
97.6 F 62 18 103/51 97
10/18/24 11:11 10/18/24 12:30 10/18/24 11:11 10/18/24 12:30 10/18/24 11:11
I&O
10/17/24 10/18/24 10/19/24
06:59 06:59 06:59
Intake Total 840 / 840 960 / 960
Balance 840 / 840 960 / 960
Physical Exam
-
General: No Apparent Distress
HEENT: Oxygen (3 L NC)
Respiratory: Wheezes
Cardiac: Regular Rhythm and S1/S2; Negative Murmur
GI: Soft, Nontender and Nondistended
Musculoskeletal: Edema, Right Lower Extrem and Edema, Left Lower Extrem (Left more than right)
Neuro: No Motor Deficits and Other (Somnolent)
Psych: Calm
[2024-10-18] MEDS: DUONEB INH (16:05)
--- NOTE | 2024-10-18 17:01 | CM ---
[facility] can not accept pt for SNF
Spoke with pt she said that she will talk with family about other SNF choices.
PLAN to SNF after located
--- NOTE | 2024-10-18 17:45 | PTCARENOTE ---
Pt with lethargy and hypotension, Pt did receive pain medication an hour prior, spoke with primary MD and cardiology,Order for IVF bolus after bolus bp 89/44 than 83/68, spoke with MD additional bolus given, bp 103/51. Pt continues with lethargy and
confusion when woken up, removing oxygen, not realizing she is in the hospital, looking for cigarettes thinking she is driving a car, 98% on 3L bp 115/49, bed alarm placed for safety, Md made aware, plan of care continues.
[2024-10-18] MEDS: TOPROL XL PO (20:49)
[2024-10-19] VITALS (15 sets, daily range): BP systolic 80–105; BP diastolic 43–74; BMI 29.0
[2024-10-19] MEDS: NSS 250 IV (03:38)
[2024-10-19] MEDS: DUONEB 3 ML INH ×3 (07:19→19:27)
[2024-10-19] MEDS: PULMICORT 0.5 MG INH ×2 (07:19→19:27)
[2024-10-19] MEDS: DESENEX/MITRAZOL/ZEASORB 1 APPLIC TOPICAL ×2 (08:26→20:52)
[2024-10-19] MEDS: DELTASONE 10 MG PO (08:26)
[2024-10-19] MEDS: ZOLOFT 100 MG PO (08:27)
[2024-10-19] MEDS: LOW STRENGTH ASPIRIN 81 MG PO (08:27)
[2024-10-19] MEDS: MIRALAX PO (08:27)
[2024-10-19] MEDS: TOPROL XL PO ×2 (08:27→22:38)
[2024-10-19] MEDS: MUCINEX 600 MG PO ×2 (08:27→20:51)
[2024-10-19] MEDS: FLUSH (NSS) 1 FLUSH IV (08:28)
[2024-10-19] MEDS: HEPARIN 5000 UNITS SC ×3 (08:28→23:14)
[2024-10-19 08:46] LABS: Blood Urea Nitrogen 49 mg/dl (7-17); Calcium 9.2 mg/dl (8.4-10.2); Carbon Dioxide 30 mmol/L (22-30); Chloride 102 mmol/L (98-107); Estimated Creatinine Clearance 28 ml/min; Glucose 75 mg/dl (70-99); Potassium 4.2 mmol/L (3.5-5.1); Sodium 137 mmol/L (135-145); eGFR 25.73
[2024-10-19] MEDS: DUONEB INH (11:11)
--- NOTE | 2024-10-19 11:53 | ITS.CL.PN ---
Solar Installation Manager - Procedure Note
Procedure
Procedure Note:
CARDIAC CATHETERIZATION REPORT
Date of Procedure: 09/19/2024
Referring: Dr. Ashok Fox MD
Indication: heart failure
PROCEDURE:
1. Right heart catheterization
2. Left heart catheterization
3. Coronary angiography
ACCESS:
6 [place] right radial artery (TR band)
5 [place] right antecubital vein (manual hemostasis)
CATHETERS:
1. 5 [place] balloon wedge
2. 6 [place] JL3.5
3. 6 [place] JR4
HEMODYNAMIC DATA
LV 117/11 (EDP 13) mmHg
AO 112/52 (mean 76) mmHg
RA 10 mmHg
RV 47/8 (EDP 11) mmHg
PA 46/20 (mean 30) mmHg
PCWP 16 mmHg
SaO2 93.7 %
SvO2 69.0 %
CO/CI 6.0/3.0 L/min/m2
SVR 878 dsc*-5
PVR 2.3 Wood Units
CORONARY ANGIOGRAPHY
Dominance: right
LM: normal
LAD: large vessel that gives rise to several small caliber diagonal branches and wraps around the apex. There are mild luminal irregularities without obstructive CAD.
LCx: large vessel that gives rise to a large OM1, small OM2, and small OM3. There are mild luminal irregularities without obstructive CAD.
RCA: moderate caliber vessel that gives rise to a small RPDA and small RPL branch. There are mild luminal irregularities without obstructive CAD.
RADIATION:
Radiation dose (mGy): 311
DAP (cm2.Gy): 24
Fluoroscopy time (minutes): 7
CONCLUSIONS:
1. Mildly elevated biventricular filling pressure, moderate mixed pulmonary hypertension, and normal cardiac output
2. No significant gradient across the aortic valve on pullback
3. Minimal luminal irregularities in a right dominant system
RECOMMENDATIONS:
1. Expectant management after cardiac catheterization via right radial approach
2. Aggressive primary prevention of coronary artery disease
3. Management of NICM with GDMT
4. Post-cath CANDIDO prevention with 125 cc IVF x 6 hours (750 mL total)
Copy to: Dr. Erasmo Kidd MD (quality assurance representative); Dr. Ant Diaz DO (PCP)
Signed: Bull Jones MD, PhD
--- NOTE | 2024-10-19 12:49 | PTCARENOTE ---
Pt returned from phlebotomist medical lab assistant via bed.accompanied by phlebotomist medical lab assistant staff x2. Pt AO x3, forgetful; MARTINEZ. VSS. Telemetry:NSR/SB. Rt hand sl cool; Rt radial pulse weak; sensation/movement to Rt hand WNL. TR band intact; Rt radial dsg intact. On nc 3 lpm-
pulseox 93%, no SOB noted. Abd obese, soft; to resume chol low/2Gm Na diet. Pt DTV. IV NSS infusing via Lt forearm site without sx of infiltration. Resting in bed at present. Will continue to monitor.
[2024-10-19] MEDS: NSS 1000 IV (12:55)
--- NOTE | 2024-10-19 13:32 | CM ---
MARIVEL spoke with Flory's daughter via telephone today. She would like to consider [facility] or [facility]. Referrals sent via [facility].
MARIVEL spoke with Yamila at [facility] who may have a bed available on Tuesday, but advised that CM should call tomorrow (Tuesday) because a bed may become available prior to Tuesday. Yamila is the contact [phone].
Plan: CM to follow for discharge to SNF when medically ready pending bed availability at [facility] and [facility].
[2024-10-19 13:47] LABS: HDL Cholesterol 79 mg/dl; LDL Cholesterol, Calculated 101 mg/dl; Total Cholesterol 212 mg/dl (50-199); Triglyceride 162 mg/dl (10-149); Very Low Density Lipoprotein 32 mg/dl (0-30)
--- NOTE | 2024-10-19 13:55 | W.PN.CD ---
Today's Communication / Plan
-
fluids post-cath
will try to resume ARB tomorrow
Impression / Plan
-
IMPRESSION/PLAN: 74F with HFrEF (EF 35-40%), COPD (steroid & O2 dependent), and chronic back pain on palliative care at home ([facility]), presented with shortness of breath.
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
Cardiomyopathy, HFrEF, new this admission
-cath without obstructive CAD
-Previously HFpEF, new reduction in EF to 35 to 40%. Improved s/p IV diuresis. Given renal dysfunction and relatively normal filling pressures, will give gentle fluid resuscitation today (125 mL/hr x6 hours) and resume diuresis tomorrow
-GDMT:
--if Cr stable tomorrow will resume ARB
--started Metoprolol succinate 12.5mg q12h (low-dose due to severe COPD) this admission; consolidate to 25 qHS starting tonight
--MRA on hold for [place] (will readdress outpatient)
--SGLT2i not affordable
[place], improving.
-Acute on chronic. Creatinine up to 2.6 on 10/14, today 2.0. Baseline 1.5-1.8
-Due to combination of diuresis, ARB initiation, and MRA
-will monitor renal function carefully post-cath. if leaves 10/20, will need to get outpatient BMP Tuesday to ensure no CANDIDO.
Abnormal troponin, 2/2 nonischemic myocardial injury
Back pain
-This is her main complaint
-Continue home pain control. Followed by palliative.
Valvular heart disease
-Mild to moderate mitral regurgitation
-Mild low gradient aortic stenosis by echo and cath
-Moderate aortic regurgitation
COPD, steroid and oxygen dependent
-Reported trial of increased steroids prior to admission
Former tobacco use, continue cessation recommended
Night terrors, she is very concerned about this, per primary
SUBJECTIVE:
LHC without obstructive CAD, only mildly elevated filling pressures
fluids for post-cath [place] avoidance
TTE 10/10/24:
CONCLUSIONS
Normal left ventricular size with moderately reduced systolic function. LVEF
35-40%. Global hypokinesis.
Normal RV size and function.
Moderate mitral regurgitation.
Mild low-flow low gradient aortic stenosis.
Moderate aortic regurgitation.
Mild tricuspid regurgitation.
Compared to prior echocardiogram on 04/18/2024, LV function has decreased from
60% to 35-40%. Valvular disease is stable..
Physical Exam
Vital Signs/Labs
Vital Signs
Temp Pulse Resp BP Pulse Ox
36.1 C 59 18 105/44 98
10/19/24 13:30 10/19/24 13:30 10/19/24 13:30 10/19/24 13:30 10/19/24 13:30
10/18/24 10/19/24 10/20/24
06:59 06:59 06:59
Actual Weight 84.51 kg 86.438 kg
10/14/24 07:05
10/19/24 07:46
Magnesium 2.1 mg/dl (1.6-2.3) 10/09/24 03:30
Triglycerides 162 mg/dl (10-149) H 10/19/24 07:46
LDL Cholesterol, Calc 101 mg/dl 10/19/24 07:46
VLDL Cholesterol, Calc 32 mg/dl (0-30) H 10/19/24 07:46
HDL Cholesterol 79 mg/dl 10/19/24 07:46
10/08/24
20:56
Gcg-D-Mrcwqvqkzwm Pept [id number]
Physical Exam
Constitutional: No acute distress
Cardiovascular: Rhythm & rate is regular
Respiratory: Respiratory effort normal
Neuro/Psych: AO x 3
Data Reviewed
-
Date of Service: October 19, 2024
Medical Decision Making: Reviewed Test Results
EKG: Tracing Personally Visualized and interpreted and Report Reviewed by me
Echo: Tracing Personally Visualized and interpreted and Report Reviewed by me
Labs: Labs Reviewed by me
--- NOTE | 2024-10-19 15:47 | CM ---
Flory has been accepted to both [facility] and [facility]. CM contacted her daughter to discuss - she will be visiting her mother jose and ask her preference.
CM will follow up on 10/20/2024 to determine facility of choice and coordinate transfer.
Plan: Discharge to SNF pending patient preference after discussing with her daughter.
--- NOTE | 2024-10-19 16:10 | PTCARENOTE ---
Pt resting comfortably since return from labor relations representative; VSS. telemetry:NSR?SB. Rt hand circ/neuro check WNL; radial and brachial site dsgs D/I. maintained on nc 3 lpm-pulse ox 95%, pt with (+) MENENDEZ/tachypnea; denies SOB. Abd obese, soft, reshma PO well.
Incont large amts urine. IVF's NSS @ 125 ml/hr infusing via lt forearm site without sx of infiltration. No c/o at present. Will continue to monitor.
--- NOTE | 2024-10-19 16:56 | W.PN.HOSP.TC ---
Today's Communication/Plan
-
Hold ARB's and diuretics for another 24 hours monitoring BP and renal function.
Slow introduction of GDMT as per cardiology if blood pressure tolerates.
Physical therapy assessment
Discharge planning to detention facility.
Assessment / Plan
Assessment / Plan

Impression:
Acute systolic CHF.
Conditions prior to admission:
Chronic hypoxic respiratory failure on home O2 at 4 L.
Advanced COPD
Valvular heart disease including mild to moderate aortic stenosis, mild to moderate mitral regurgitation.
Anemia of chronic disease per
CKD stage III.
Chronic compression fractures.
Osteoporosis.
Anxiety/depression
Plan
Acute systolic hf
-Echo April 2024: EF 55-60%. Mild Aortic Stenosis, Mild/Moderate Mitral Regurg
-TTE this admission showing decline in EF to 35-40% with global hypokinesis
-Probnp elevated from 3250 in aug 07 to 95278 this admission.
-GDMT will be limited with Hypotension episode, will need reattempt at lower dose reinitiation of ARB/Aldactone
-Creatinine rising and peaked at 2.6. Hold Lasix and Diamox
-Catheterization 10/19 with nonobstructive CAD. Mildly elevated filling pressure
-Soft BP responded to IV fluid boluses. Continue holding diuretics and ARB's with slow introduction of GDMT for the next 24 to 40 hours.
[place] on CKD Stage III
Baseline creatinine 1.6�1.8
Metabolic alkalosis
-Likely from diuresis. Patient was having minimal nausea
-got one dose of diamox, need to held further doses.
COPD without acute exacerbation
Chronic Hypoxic Respiratory Failure
-on home o2 2-4 L continuously
-Continue supplemental oxygen as prior to admission
-o2 requirement stable
-Patient finished short course of steroids/azithromycin without much help
-Transition Breztri to Pulmicort and DuoNeb during hospitalization
-Continue prednisone 10mg/d
Visual hallucination - None
-Patient reported of having visual hallucination
-Venous blood gas ruled out any CO2 narcosis
-Steroid related? currently on prednisone 10mg/d
-No h/o of psych issues.
Chronic Back Pain secondary to L2 Compression Fracture
-Continue Tylenol and Oxycodone as prior to admission
Anxiety/Depression
-Continue bupropion and sertraline
Normocytic anemia
-Hbg close to baseline
Chronic back pain with lumbar compression fracture
Morbid obesity
Obstructive sleep apnea
DVT Proph: SC Heparin
Code Status: Full Code
Anticipated Discharge: 24 - 48 hours
Subjective/Interval History
-
Date of Service: October 19, 2024
Objective Data
-
Labs:
Laboratory Results
10/19/24
07:46
Sodium 137
Potassium 4.2
Chloride 102
Carbon Dioxide 30
BUN 49 H
Creatinine 2.0 H
Glucose 75
Calcium 9.2
Vital Signs:
Vital Signs
Temp Pulse Resp BP Pulse Ox
97.7 F 65 20 104/49 98
10/19/24 16:30 10/19/24 16:30 10/19/24 16:30 10/19/24 16:30 10/19/24 16:30
I&O
10/18/24 10/19/24 10/20/24
06:59 06:59 06:59
Intake Total 960 / 960 1470 / 1470
Balance 960 / 960 1470 / 1470
Physical Exam
-
General: No Apparent Distress
HEENT: Oxygen (3 L NC)
Respiratory: Wheezes
Cardiac: Regular Rhythm and S1/S2; Negative Murmur
GI: Soft, Nontender and Nondistended
Musculoskeletal: Edema, Right Lower Extrem and Edema, Left Lower Extrem (Left more than right)
Neuro: No Motor Deficits and Other (Somnolent)
Psych: Calm
[2024-10-20] VITALS (8 sets, daily range): BP systolic 85–108; BP diastolic 44–51; BMI 28.6
[2024-10-20 07:45] LABS: Blood Urea Nitrogen 43 mg/dl (7-17); Calcium 9.1 mg/dl (8.4-10.2); Carbon Dioxide 26 mmol/L (22-30); Chloride 106 mmol/L (98-107); Estimated Creatinine Clearance 33 ml/min; Glucose 79 mg/dl (70-99); Potassium 4.2 mmol/L (3.5-5.1); Sodium 141 mmol/L (135-145); eGFR 31.27
[2024-10-20 07:47] LABS: Hematocrit 38.9 % (37.0-47.0); Hemoglobin 12.1 g/dL (12.0-16.0); Mean Corp Hgb Conc. 31.1 g/dL (33.0-37.0); Mean Corpuscular Hgb 31.9 pg (27.0-31.0); Mean Corpuscular Volume 102.6 fL (81.0-99.0); Mean Platelet Volume 10.7 fL (7.4-10.4); Platelet Count 248 10^3/uL (130-400); Red Blood Cell Count 3.79 10^6/uL (4.20-5.40); Red Cell Dist. Width 15.5 % (11.5-14.5); White Blood Cell Count 13.9 10^3/uL (4.8-10.8)
[2024-10-20] MEDS: DUONEB 3 ML INH ×3 (07:59→19:36)
[2024-10-20] MEDS: DELTASONE 10 MG PO (10:24)
[2024-10-20] MEDS: DESENEX/MITRAZOL/ZEASORB 1 APPLIC TOPICAL ×2 (10:24→21:40)
[2024-10-20] MEDS: HEPARIN 5000 UNITS SC ×3 (10:24→23:59)
[2024-10-20] MEDS: MUCINEX 600 MG PO ×2 (10:25→21:39)
[2024-10-20] MEDS: ZOLOFT 100 MG PO (10:25)
[2024-10-20] MEDS: LOW STRENGTH ASPIRIN 81 MG PO (10:25)
[2024-10-20] MEDS: MIRALAX 17 GRAMS PO (10:25)
[2024-10-20] MEDS: FLUSH (NSS) 1 FLUSH IV (10:26)
--- NOTE | 2024-10-20 10:26 | W.PN.CD ---
Addendum entered and electronically signed by Loretta Bey MD 10/20/24 13:25:
74-year-old woman with HFrEF with EF of 35%, COPD on oxygen, followed by palliative care was admitted with heart failure and has been diuresed. Yesterday required IV fluids to improve blood pressure and appears to be euvolemic now. We can resume
patient's Lasix 20 mg daily. Continue metoprolol. MRA is on hold due to fluctuations in blood pressure and [place]. Likely can be added at a later date as an outpatient.
Original Note:
Today's Communication / Plan
-
Restart lasix 20mg daily.
Follow BMP, if d/c needs BMP next week
Hold on valsartan given low BP. Will need to reassess as OP
Impression / Plan
-
IMPRESSION/PLAN: 74F with HFrEF (EF 35-40%), COPD (steroid & O2 dependent), and chronic back pain on palliative care at home ([facility]), presented with shortness of breath.
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
Cardiomyopathy, HFrEF, new this admission
-cath without obstructive CAD
-Previously HFpEF, new reduction in EF to 35 to 40%. Improved s/p IV diuresis. Given renal dysfunction and relatively normal filling pressures, Pt was given fluid yesterday. Restart lasix 20mg daily.
-GDMT:
--Bp wont support ARB at this time. May need to reassess as OP
--on metoprolol
--MRA on hold for [place] (will readdress outpatient)
--SGLT2i not affordable
[place], improving.
-Acute on chronic. Creatinine up to 2.6 on 10/14, now back to baseline ( Baseline 1.5-1.8)
-Due to combination of diuresis, ARB initiation, and MRA
-BMP next week
Abnormal troponin, 2/2 nonischemic myocardial injury
Back pain
-This is her main complaint
-Continue home pain control. Followed by palliative.
Valvular heart disease
-Mild to moderate mitral regurgitation
-Mild low gradient aortic stenosis by echo and cath
-Moderate aortic regurgitation
COPD, steroid and oxygen dependent
-Reported trial of increased steroids prior to admission
Former tobacco use, continue cessation recommended
SUBJECTIVE:
Pt. states breathing improved. Just feels tired and washed out.
TTE 10/10/24:
CONCLUSIONS
Normal left ventricular size with moderately reduced systolic function. LVEF
35-40%. Global hypokinesis.
Normal RV size and function.
Moderate mitral regurgitation.
Mild low-flow low gradient aortic stenosis.
Moderate aortic regurgitation.
Mild tricuspid regurgitation.
Compared to prior echocardiogram on 04/18/2024, LV function has decreased from
60% to 35-40%. Valvular disease is stable..
Physical Exam
Vital Signs/Labs
Vital Signs
Temp Pulse Resp BP Pulse Ox
97.6 F 60 18 103/44 100
10/20/24 07:30 10/20/24 08:01 10/20/24 08:01 10/20/24 07:30 10/20/24 08:01
10/19/24 10/20/24 10/21/24
06:59 06:59 06:59
Actual Weight 86.438 kg 85.445 kg
10/20/24 06:26
10/20/24 06:26
Magnesium 2.1 mg/dl (1.6-2.3) 10/09/24 03:30
Triglycerides 162 mg/dl (10-149) H 10/19/24 07:46
LDL Cholesterol, Calc 101 mg/dl 10/19/24 07:46
VLDL Cholesterol, Calc 32 mg/dl (0-30) H 10/19/24 07:46
HDL Cholesterol 79 mg/dl 10/19/24 07:46
10/08/24
20:56
Wuq-K-Hncgdktfubo Pept [id number]
Physical Exam
Constitutional: No acute distress
Cardiovascular: Rhythm & rate is regular and Pedal edema is absent
Respiratory: Respiratory effort normal and Crackles Present (clear with cough)
Neuro/Psych: AO x 3
Other: Cath Site (R radial no hematoma, palpable R radial pulse. )
Data Reviewed
-
Date of Service: October 20, 2024
--- NOTE | 2024-10-20 12:00 | PTCARENOTE ---
Pt's BP at noon 85/48 with automatic cuff, pt asymptomatic. Rechecked pt's with manual cuff and noted to be 90/48, pt remains asymptomatic. Made [place] NP aware of hypotension. Holding Lasix po today, will monitor.
--- NOTE | 2024-10-20 12:47 | W.PN.HOSP.TC ---
Today's Communication/Plan
-
Restart Lasix 20 mg daily
� Continue monitor BMP, blood pressures
Assessment / Plan
Assessment / Plan

Impression:
Acute systolic CHF.
Conditions prior to admission:
Chronic hypoxic respiratory failure on home O2 at 4 L.
Advanced COPD
Valvular heart disease including mild to moderate aortic stenosis, mild to moderate mitral regurgitation.
Anemia of chronic disease per
CKD stage III.
Chronic compression fractures.
Osteoporosis.
Anxiety/depression
Plan
Acute systolic hf
-Echo April 2024: EF 55-60%. Mild Aortic Stenosis, Mild/Moderate Mitral Regurg
-TTE this admission showing decline in EF to 35-40% with global hypokinesis
-Probnp elevated from 3250 in aug 07 to 50177 this admission.
-GDMT will be limited with Hypotension episode, will need reattempt at lower dose reinitiation of ARB/Aldactone
-Creatinine rising and peaked at 2.6. Hold Lasix and Diamox
-Catheterization 10/19 with nonobstructive CAD. Mildly elevated filling pressure
-Soft BP responded to IV fluid boluses.
�Restart Lasix 20 mg daily
� Follow BMP closely
- continue holding ARB with slow introduction of GDMT for the next 24 to 48 hours.
[place] on CKD Stage III
Baseline creatinine 1.6�1.8
Metabolic alkalosis
-Likely from diuresis. Patient was having minimal nausea
-got one dose of diamox, need to held further doses.
COPD without acute exacerbation
Chronic Hypoxic Respiratory Failure
-on home o2 2-4 L continuously
-Continue supplemental oxygen as prior to admission
-o2 requirement stable
-Patient finished short course of steroids/azithromycin without much help
-Transition Breztri to Pulmicort and DuoNeb during hospitalization
-Continue prednisone 10mg/d
Visual hallucination - None
-Patient reported of having visual hallucination
-Venous blood gas ruled out any CO2 narcosis
-Steroid related? currently on prednisone 10mg/d
-No h/o of psych issues.
Chronic Back Pain secondary to L2 Compression Fracture
-Continue Tylenol and Oxycodone as prior to admission
Anxiety/Depression
-Continue bupropion and sertraline
Normocytic anemia
-Hbg close to baseline
Chronic back pain with lumbar compression fracture
Morbid obesity
Obstructive sleep apnea
DVT Proph: SC Heparin
Code Status: Full Code
Update 10/20�restart Lasix 20 mg daily; follow-up BMP
Anticipated Discharge: 24 - 48 hours
Subjective/Interval History
-
Date of Service: October 20, 2024
No acute events
Objective Data
-
Labs:
Laboratory Results
10/20/24
06:26
WBC 13.9 H
Hgb 12.1
Hct 38.9
Plt Count 248 D
Sodium 141
Potassium 4.2
Chloride 106
Carbon Dioxide 26
BUN 43 H
Creatinine 1.7 H
Glucose 79
Calcium 9.1
Vital Signs:
Vital Signs
Temp Pulse Resp BP Pulse Ox
98.4 F 81 18 90/48 94
10/20/24 11:32 10/20/24 12:07 10/20/24 12:07 10/20/24 12:00 10/20/24 12:07
I&O
10/19/24 10/20/24 10/21/24
06:59 06:59 06:59
Intake Total 1470 / 1470 1190 / 1190
Balance 1470 / 1470 1190 / 1190
Review of Systems
-
History Source: Patient
All other systems: Not reviewed unless documented
Data Reviewed
-
Total Time Spent with Patient (in minutes): 55
Diagnostic Radiology: Image personally visualized and interpreted and Report Reviewed by me
Labs: Labs Reviewed by me
[2024-10-20] MEDS: DUONEB INH (15:55)
[2024-10-20] MEDS: TOPROL XL 25 MG PO (21:48)
[2024-10-21 03:55] VITALS: BP 108/49
[2024-10-21 06:00] VITALS: BMI 28.8
[2024-10-21] MEDS: DUONEB 3 ML INH ×4 (07:28→19:15)
[2024-10-21 07:32] LABS: Blood Urea Nitrogen 37 mg/dl (7-17); Calcium 9.2 mg/dl (8.4-10.2); Carbon Dioxide 27 mmol/L (22-30); Chloride 105 mmol/L (98-107); Estimated Creatinine Clearance 40 ml/min; Glucose 69 mg/dl (70-99); Potassium 4.4 mmol/L (3.5-5.1); Sodium 139 mmol/L (135-145); eGFR 39.48
[2024-10-21 08:06] VITALS: BP 124/67
[2024-10-21] MEDS: MIRALAX PO (09:59)
[2024-10-21] MEDS: FLUSH (NSS) 1 FLUSH IV (10:03)
[2024-10-21] MEDS: DELTASONE 10 MG PO (10:04)
[2024-10-21] MEDS: LASIX 20 MG PO (10:04)
[2024-10-21] MEDS: HEPARIN 5000 UNITS SC ×3 (10:04→22:59)
[2024-10-21] MEDS: LOW STRENGTH ASPIRIN 81 MG PO (10:05)
[2024-10-21] MEDS: DESENEX/MITRAZOL/ZEASORB 1 APPLIC TOPICAL ×2 (10:05→20:22)
[2024-10-21] MEDS: ZOLOFT 100 MG PO (10:05)
[2024-10-21] MEDS: MUCINEX 600 MG PO ×2 (10:05→20:22)
--- NOTE | 2024-10-21 10:05 | CM ---
Addendum entered by Riya Parks 10/21/24 13:05:
Attempted to reach [facility] to secure bed, unable to reach admissions.
Addendum entered by Riya Parks 10/21/24 13:02:
Per attending, pt nearing dc. Discussed with Yamila @ [facility] - informed they cannot accept pt today, uncertain if tomorrow. There are concerns she may turn into LTC. She offers a bed at [facility].
Call placed to daughter to update and obtain decision, in order to pursue transfer to SNF. VM left requesting call back.
Original Note:
CM following re: d/c planning.
CM spoke with daughter Radha to discuss dispo. Both [facility] and [facility] have offered a bed.
She states she prefers [facility] due to distance. CM outreached admissions liaison, awaiting correspondence / bed availability, and medical clearance.
Goal: transfer to [facility]. Family transport.
[2024-10-21 12:24] VITALS: BP 105/57
--- NOTE | 2024-10-21 12:36 | W.PN.CD ---
Today's Communication / Plan
-
- Stable from cardiac stand point
- GDMT re-introduction slowly as outpatient
- Follow up with cardiology
Impression / Plan
-
IMPRESSION/PLAN: 74F with HFrEF (EF 35-40%), COPD (steroid & O2 dependent), and chronic back pain on palliative care at home ([facility]), presented with shortness of breath.
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
Cardiomyopathy, HFrEF, new this admission
-cath without obstructive CAD
-Previously HFpEF, new reduction in EF to 35 to 40%. Improved s/p IV diuresis. Given renal dysfunction and relatively normal filling pressures, Pt was given fluid yesterday. Restart lasix 20mg daily.
-GDMT:
--Bp wont support ARB at this time. May need to reassess as OP
--on metoprolol
--MRA on hold for [place] (will readdress outpatient)
--SGLT2i not affordable
[place], improving.
-Acute on chronic. Creatinine up to 2.6 on 10/14, now back to baseline 1.4 ( Baseline 1.5-1.8)
-Due to combination of diuresis, ARB initiation, and MRA
-BMP next week
-Lasix is restarted.
Abnormal troponin, 2/2 nonischemic myocardial injury
Back pain
-This is her main complaint
-Continue home pain control. Followed by palliative.
Valvular heart disease
-Mild to moderate mitral regurgitation
-Mild low gradient aortic stenosis by echo and cath
-Moderate aortic regurgitation
COPD, steroid and oxygen dependent
-Reported trial of increased steroids prior to admission
Former tobacco use, continue cessation recommended
SUBJECTIVE:
Pt. states breathing improved. Just feels tired and washed out.
TTE 10/10/24:
CONCLUSIONS
Normal left ventricular size with moderately reduced systolic function. LVEF
35-40%. Global hypokinesis.
Normal RV size and function.
Moderate mitral regurgitation.
Mild low-flow low gradient aortic stenosis.
Moderate aortic regurgitation.
Mild tricuspid regurgitation.
Compared to prior echocardiogram on 04/18/2024, LV function has decreased from
60% to 35-40%. Valvular disease is stable..
Physical Exam
Vital Signs/Labs
Vital Signs
Temp Pulse Resp BP Pulse Ox
97.9 F 70 20 105/57 100
10/21/24 12:24 10/21/24 12:24 10/21/24 12:24 10/21/24 12:24 10/21/24 12:24
10/20/24 10/21/24 10/22/24
06:59 06:59 06:59
Actual Weight 85.445 kg 85.927 kg
10/20/24 06:26
10/21/24 05:55
Magnesium 2.1 mg/dl (1.6-2.3) 10/09/24 03:30
Triglycerides 162 mg/dl (10-149) H 10/19/24 07:46
LDL Cholesterol, Calc 101 mg/dl 10/19/24 07:46
VLDL Cholesterol, Calc 32 mg/dl (0-30) H 10/19/24 07:46
HDL Cholesterol 79 mg/dl 10/19/24 07:46
10/08/24
20:56
[id number] Pept [id number]
Physical Exam
Constitutional: No acute distress and Comfortable
EENT: Anicteric and Moist mucous membranes
Cardiovascular: Rhythm & rate is regular and Pedal edema is absent
Respiratory: Respiratory effort normal and Lungs clear to auscul.
GI: Soft and Non tender
Neuro/Psych: Alert, Oriented and AO x 3
Data Reviewed
-
Date of Service: October 21, 2024
Medical Decision Making: Reviewed Test Results, Tests Ordered and Review of Case with other Provider
EKG: Tracing Personally Visualized and interpreted
Echo: Report Reviewed by me
Medical Tests (PFT, Pathology etc): Discussed with Patient
Labs: Labs Reviewed by me
Old Records: Reviewed
--- NOTE | 2024-10-21 12:41 | W.PN.HOSP.TC ---
Today's Communication/Plan
-
cont diuretics
monitor bmp
dc ready - CM aware
Assessment / Plan
Assessment / Plan

Impression:
Acute systolic CHF.
Conditions prior to admission:
Chronic hypoxic respiratory failure on home O2 at 4 L.
Advanced COPD
Valvular heart disease including mild to moderate aortic stenosis, mild to moderate mitral regurgitation.
Anemia of chronic disease per
CKD stage III.
Chronic compression fractures.
Osteoporosis.
Anxiety/depression
Plan
Acute systolic hf
-Echo April 2024: EF 55-60%. Mild Aortic Stenosis, Mild/Moderate Mitral Regurg
-TTE this admission showing decline in EF to 35-40% with global hypokinesis
-Probnp elevated from 3250 in aug 07 to 79582 this admission.
-GDMT will be limited with Hypotension episode, will need reattempt at lower dose reinitiation of ARB/Aldactone
-Creatinine rising and peaked at 2.6. Hold Lasix and Diamox
-Catheterization 10/19 with nonobstructive CAD. Mildly elevated filling pressure
-Soft BP responded to IV fluid boluses.
�Restart Lasix 20 mg
� Follow BMP closely
- continue holding ARB with slow introduction of GDMT outpt
-Bp wont support ARB at this time. May need to reassess as OP
-on metoprolol
-MRA on hold for [place] (will readdress outpatient)
-SGLT2i not affordable
-F/u Cards outpt
[place] on CKD Stage III
Baseline creatinine 1.6�1.8
-resolved
-monitor now that back on lasix
Metabolic alkalosis
-Likely from diuresis. Patient was having minimal nausea
-got one dose of diamox, need to held further doses.
COPD without acute exacerbation
Chronic Hypoxic Respiratory Failure
-on home o2 2-4 L continuously
-Continue supplemental oxygen as prior to admission
-o2 requirement stable
-Patient finished short course of steroids/azithromycin without much help
-Transition Breztri to Pulmicort and DuoNeb during hospitalization
-Continue prednisone 10mg/d
Visual hallucination - None - appears to have resolved
-Patient reported of having visual hallucination
-Venous blood gas ruled out any CO2 narcosis
-Steroid related? currently on prednisone 10mg/d
-No h/o of psych issues.
Chronic Back Pain secondary to L2 Compression Fracture
-Continue Tylenol and Oxycodone as prior to admission
Anxiety/Depression
-Continue bupropion and sertraline
Normocytic anemia
-Hbg close to baseline
Chronic back pain with lumbar compression fracture
Morbid obesity
Obstructive sleep apnea
DVT Proph: SC Heparin
Code Status: Full Code
Update 10/20�restart Lasix 20 mg daily; follow-up BMP
Update 10/21: monitor bmp; Stable for DC - CM aware; monitor CBC outpt; GDMT outpatient as BP permits
Anticipated Discharge: Within 24 hours
Subjective/Interval History
-
Date of Service: October 21, 2024
No acute events, tolerated Lasix well
Objective Data
-
Labs:
Laboratory Results
10/21/24
05:55
Sodium 139
Potassium 4.4
Chloride 105
Carbon Dioxide 27
BUN 37 H
Creatinine 1.4 H
Glucose 69 L
Calcium 9.2
Vital Signs:
Vital Signs
Temp Pulse Resp BP Pulse Ox
97.9 F 70 20 105/57 100
10/21/24 12:24 10/21/24 12:24 10/21/24 12:24 10/21/24 12:24 10/21/24 12:24
I&O
10/20/24 10/21/24 10/22/24
06:59 06:59 06:59
Intake Total 1190 / 1190 960 / 960 480 / 480
Balance 1190 / 1190 960 / 960 480 / 480
Review of Systems
-
History Source: Patient
All other systems: Not reviewed unless documented
Data Reviewed
-
Total Time Spent with Patient (in minutes): 55
Diagnostic Radiology: Image personally visualized and interpreted and Report Reviewed by me
Labs: Labs Reviewed by me
[2024-10-21] MEDS: OCEAN, SALINE MIST 2 SPRAYS NASAL (13:28)
[2024-10-21 16:14] VITALS: BP 94/51
[2024-10-21] MEDS: TOPROL XL 25 MG PO (22:10)
[2024-10-21 23:01] VITALS: BP 108/56
[2024-10-22] MEDS: FLEXERIL 5 MG PO (00:26)
[2024-10-22] MEDS: TYLENOL 650 MG PO (00:26)
[2024-10-22 06:00] VITALS: BMI 28.9
[2024-10-22 07:12] VITALS: BP 103/54
[2024-10-22 07:15] LABS: Blood Urea Nitrogen 34 mg/dl (7-17); Calcium 9.1 mg/dl (8.4-10.2); Carbon Dioxide 28 mmol/L (22-30); Chloride 104 mmol/L (98-107); Estimated Creatinine Clearance 40 ml/min; Glucose 89 mg/dl (70-99); Potassium 4.3 mmol/L (3.5-5.1); Sodium 139 mmol/L (135-145); eGFR 39.48
[2024-10-22] MEDS: DUONEB 3 ML INH ×3 (07:54→15:35)
[2024-10-22] MEDS: DESENEX/MITRAZOL/ZEASORB 1 APPLIC TOPICAL (08:26)
[2024-10-22] MEDS: LASIX 20 MG PO (08:36)
[2024-10-22] MEDS: MIRALAX 17 GRAMS PO (08:36)
[2024-10-22] MEDS: DELTASONE 10 MG PO (08:36)
[2024-10-22] MEDS: MUCINEX 600 MG PO (08:36)
[2024-10-22] MEDS: HEPARIN 5000 UNITS SC ×2 (08:37→15:39)
[2024-10-22] MEDS: ZOLOFT 100 MG PO (08:37)
[2024-10-22] MEDS: FLUSH (NSS) 1 FLUSH IV (08:37)
[2024-10-22] MEDS: LOW STRENGTH ASPIRIN 81 MG PO (08:37)
[2024-10-22 08:43] VITALS: BP 109/48; PULSE 57; O2SAT 100
--- NOTE | 2024-10-22 10:56 | CM ---
Addendum entered by Linda Bolaños RN 10/22/24 15:47:
Pt ad douglas Flannery aware and agree with dec. Alma Delia will parts picker patient to take her to SNF .
Christi accepted pt to [facility].
Original Note:
Spoke with Christi at [facility] [phone] she can accept pt today.
Spoke with pt she said she wants to know how many skilled days she has left.
Reviewed IMM with pt.
Spoke with douglas Flannery [phone] reviewed above. She said she can transport her mom after 5:30 pm today.
Alma Delia will call [facility].
[address] [address]
report [phone]
fax [phone]
PLAN To [facility]
--- NOTE | 2024-10-22 11:17 | W.HF.CON ---
Heart Failure
- LV Function
Left ventricular function study result: LV Ejection fraction 36-40%
Ejection Fraction Percentage: 35-40
- ARNI
Heart Failure ARNI Contraindication: Acute Renal Failure, Hypotension
- ACEI/ARB
Patient already on ACEI/ARB: No
Heart Failure ACEI/ARB Contraindication: Acute Renal Failure, Hypotension
- Beta Kerwin
Patient already on Evidence Based Beta Kerwin: Yes
- Mineralocorticord Receptor Antagonist
Patient already on MRA: No
Heart Failure MRA Not Indicated: LV Ejection Fraction > 40%
- SGLT-2 Inhibitor
Patient already on SGLT-2 Inhibitor: No
Heart Failure SGLT-2 Inhibitor Contraindication: Patient Refusal
- NYHA CHF Classification
NYHA CHF Classification Level: Class III - Symptoms w/ min exertion, interferes w/ nml daily activity (COPD oxygen dependent)
- ACC/AHA Stage
ACC/AHA Stage: Stage C: Symptomatic Heart Failure
--- NOTE | 2024-10-22 15:41 | W.DS.TRANS ---
DC Summary - Distance Education Teacher
-
Discharge Instructions:
Discharge Diagnosis/Procedures Impression:
Acute systolic CHF.
Conditions prior to admission:
Chronic hypoxic respiratory failure on home O2
at 4 L.
Advanced COPD
Valvular heart disease including mild to
moderate aortic stenosis, mild to moderate
mitral regurgitation.
Anemia of chronic disease per
CKD stage III.
Chronic compression fractures.
Osteoporosis.
Anxiety/depression
Cardiac cath 10/19
Diet 2 Gram Sodium
Driving Restrictions No driving for 24 hours
Instructions: *PCP/Other [facility] Heart Failure Instructions
Stand-Alone Forms: DC Instructions- Cath/EP Lab
Changes to Home Medications: Yes
Discharge Medications:
DC Medications w/original date entered in [employer]
albuterol sulfate 90 mcg/actuation aerosol inhaler 2 puff inhalation R Q4HPRN PRN sob/wheezing 12/29/22
bupropion HCl 300 mg 24 hr tablet, extended release 300 mg PO DAILY Depression 07/19/23
budesonide 160 mcg-glycopyr 9 mcg-formot 4.8 mcg/actuation HFA inhaler (Breztri Aerosphere) 2 inh inhalation R BID Lung/Breathing Issues 01/18/24
furosemide 40 mg tablet 20 mg PO DAILY Fluid Retention/Swelling 02/20/24
albuterol sulfate 2.5 mg/3 mL (0.083 %) solution for nebulization 2.5 mg inhalation R Q4HPRN PRN sob 04/17/24
acetaminophen 500 mg tablet (Tylenol Extra Strength) 1,000 mg PO BID Pain 06/22/24
melatonin 5 mg tablet 10 mg PO HSPRN PRN sleep 06/22/24
cyclobenzaprine 5 mg tablet 5 mg PO TIDPRN PRN muscle spasms 08/01/24
guaifenesin 600 mg tablet, extended release 12 hr 600 mg PO Q12H Lung/breathing issues 08/01/24
sertraline 100 mg tablet 100 mg PO DAILY Depression 08/01/24
loratadine 10 mg tablet (Claritin) 10 mg PO DAILY Allergies 10/08/24
prednisone 10 mg tablet 10 mg PO DAILY Anti-Inflammatory 10/08/24
azithromycin 250 mg tablet (Zithromax) 250 mg PO DAILY infection 10/09/24
aspirin 81 mg chewable tablet 81 mg PO DAILY #30 tabs 10/22/24
metoprolol succinate 25 mg tablet,extended release 24 hr 25 mg PO HS #30 tabs 10/22/24
oxycodone 5 mg tablet 5 mg PO Q6HPRN PRN severe pain #10 tabs 10/22/24
Home Medication Changes
ASA and metoprolol
Pending Results: No
[2024-10-22 15:49] VITALS: BP 111/49
--- NOTE | 2024-10-22 15:49 | PTCARENOTE ---
Pt AAO x3, MARTINEZ; OOB to chair/ambulates to BR with assist x1/walker, reshma well, sl unsteady w/OOB activity. No c/o dizziness. VSS. Maintained on nc 3 lpm- pulse ox 98%, pt with (+) slight MENENDEZ/tachypnea; denies SOB. Abd obese,soft, reshma PO well.
Voids in BR at times; also incont/wears Depends. Pt for DC to SNF later thiss hift. Will continue to monitor.
== END 2024-10-22 19:04 | DRG 286 ==
LOC: 4 EAST ACU 23:46
PROVIDERS: Clinical Nurse Specialist Family Health; Emergency Medicine; Hospitalist; Internal Medicine Cardiovascular Disease; Nurse Practitioner Adult Health; Physician Assistant Medical; Student in an Organized Health Care Education/Training Program; ADMITTING PHYSICIAN Internal Medicine; ATTENDING PHYSICIAN Internal Medicine; EMERGENCY PHYSICIAN Emergency Medicine; FAMILY PHYSICIAN Family Medicine; OTHER PHYSICIAN Internal Medicine Cardiovascular Disease
PROC: 5A09357 Assistance with Respiratory Ventilation, Less than 24 Consecutive Hours, Continuous Positive Airway Pressure (ICD-10-PCS; 2024-10-10)
PROC: 5A0935A Assistance with Respiratory Ventilation, Less than 24 Consecutive Hours, High Flow/Velocity Cannula (ICD-10-PCS; 2024-10-16)
PROC: 4A023N8 Measurement of Cardiac Sampling and Pressure, Bilateral, Percutaneous Approach (ICD-10-PCS; 2024-10-19)
PROC: B2111ZZ Fluoroscopy of Multiple Coronary Arteries using Low Osmolar Contrast (ICD-10-PCS; 2024-10-19)
DX: I13.0 Hypertensive heart and chronic kidney disease with heart failure and stage 1 through stage 4 chronic kidney disease, or unspecified chronic kidney disease (principal); I50.21 Acute systolic (congestive) heart failure; J96.11 Chronic respiratory failure with hypoxia; M48.56XA Collapsed vertebra, not elsewhere classified, lumbar region, initial encounter for fracture; E87.3 Alkalosis; N17.9 Acute kidney failure, unspecified; I5A Non-ischemic myocardial injury (non-traumatic); I42.9 Cardiomyopathy, unspecified; I08.0 Rheumatic disorders of both mitral and aortic valves; G89.29 Other chronic pain; F51.4 Sleep terrors [night terrors]; I27.20 Pulmonary hypertension, unspecified; R44.1 Visual hallucinations; N18.31 Chronic kidney disease, stage 3a; I95.9 Hypotension, unspecified; M81.0 Age-related osteoporosis without current pathological fracture; F32.A Depression, unspecified; D63.1 Anemia in chronic kidney disease; J44.9 Chronic obstructive pulmonary disease, unspecified; F41.9 Anxiety disorder, unspecified; G47.33 Obstructive sleep apnea (adult) (pediatric); Z87.442 Personal history of urinary calculi; Z87.891 Personal history of nicotine dependence; Z90.49 Acquired absence of other specified parts of digestive tract; Z88.0 Allergy status to penicillin; Z91.018 Allergy to other foods; Z99.81 Dependence on supplemental oxygen; Z59.71 Insufficient health insurance coverage
CPT/HCPCS: 71046; 80048; 80053; 80061; 81003; 82805; 83735; 83880; 84484; 85025; 85027; 93005; 93306; 93460; 94640; 94660; 96374; 97116; 97163; 97530; 97535; 99283; 99285; 99406; C1769; C1894; Q9967

== ENCOUNTER 2024-11-09 09:51 | Inpatient (IN) | payer MEDICARE, SELFPAY ==
[2024-11-06 17:56] VITALS: BP 102/61
--- NOTE | 2024-11-06 18:16 | ED.GENMED ---
History of Present Illness
General
Chief Complaint: Breathing Problem
Source: patient, records and family
Exam Limitations: none
Time Seen by Provider: 11/06/24 17:58
History of Present Illness
History of Present Illness:
74yoF with a history of COPD on 3L NC, CHF, anemia of chronic disease, and CKD presenting with her daughter for evaluation of shortness of breath. Symptoms began this afternoon. She reports having a fairly abrupt onset of dyspnea and wheezing.
She tried a home neb treatment without much improvement. Her daughter returned home after a shopping trip and noticed that patient was 'red in the face' and gasping for air which prompted her to come to the ED. Patient was admitted from
10/08/24-10/22/24 for shortness of breath. She was found to be in new onset CHF with an EF of 35-40%. She underwent cardiac catheterization which revealed nonobstructive CAD.
Past History
Past History
ED Past Medical History: CHF, COPD (2-3 liters NC), Psychiatric (Anxiety, Depression, ) and Other (Spinal stenosis, morbid obesity, Bilateral kidney stones, Ulcers, Sleep apnea, Shingles, )
ED Past Surgical History: Cholecystectomy, Orthopedic (Left shoulder reconstruction. ), Urological (Kidney surgery) and Other (Fasciotomy for fasciitis with wound VAC of lower back and thigh)
Social History
Tobacco: Former smoker
Alcohol: None
Drug: None
Personal:
Living: alone
Employment: Retired
Family History
Family History: Other (Noncontributory)
Phy Exam
Physical Exam
Physical Exam:
Patient ill-appearing with tachypnea and increased work of breathing
General Physical Exam
General Presentation: moderate distress
General Skin: warm and dry
General Habitus: elderly
General Mental: alert
ENT Exam
ENT Exam: normocephalic
Cardiovascular Exam
Cardiovascular Exam: regular rate/rhythm, no edema and no murmur
Pulmonary Exam
Pulmonary Exam: accessory muscle use, generalized wheezing, respiratory distress (mild) and other (Accessory muscle use present. Diffuse expiratory wheezing.)
Neurological Exam
Neurological Exam: alert
[place] Coma Scale
Eye Opening: Spontaneous
Verbal Response: Oriented
Motor Response: Obeys Commands
GCS Total Score: 15
Skin Exam
Skin Exam: normal color and warm/dry
Psychiatric Exam
Psychiatric Exam: normal mood/affect
Scores
Heart Failure Risk
Heart Failure Risk Score: Not Applicable
Course
Orders/Labs/Results
Orders:
Orders
11/06/24 Dinner
Sodium, 2 Gram
At Your Request: Limited Participation
Does patient need a safe tray?: No
11/06/24 18:09
Albuterol Sulfate [Ventolin Nebules] 10 mg INH R NOW STA
Ipratropium Nebs [Atrovent Nebules] 1 mg INH R NOW STA
CR Chest Portable - 1 View Urgent
Comment:
Reason For Exam: SOB
Reason Study Needs to be Portable: Patient Unstable
11/06/24 18:10
Electrocardiogram (*1) Urgent
Reason for Study: Shortness of Breath
11/06/24 18:27
COVID-19 Antigen Urgent
Source: Nasal Swab
Complete Blood Count/With Diff Urgent
Comprehensive Metabolic Panel Urgent
NT-proBNP Urgent
Troponin I Urgent
Venous Blood Gas Urgent
%Oxygen/Room Air: 5L
Blood Culture Q30M
ALLI Source: Blood/Venous
Specimen Description:
Influenza A+B Rapid Molecular Urgent
ALLI Source: Nasal Swab
Specimen Description:
11/06/24 19:32
Dexamethasone Sod Phosphate [Decadron] 10 mg IV NOW STA
11/06/24 19:45
Blood Culture Q30M
ALLI Source: Blood/Venous
Specimen Description:
11/06/24 21:34
Admit/Transfer Patient As Directed
Co-Sign Provider:
Level of Care: Observation services
Assign to:: Telemetry
Physician / Group: hospitalist
Diagnosis: COPD exacerbation
Reason for Telemetry: Subacute Heart Failure
Date to Stop Telemetry: 11/08/24
Time to Stop Telemetry: 11:00
Reason for Hospitalization: respiratory distress
PRN Pain Medication Management As Directed
May give lesser potent ordered pain med per pt: Yes
preference::
Protocol:: Medication orders for pain may be administered in a
manner that supports deferring to patient preference
when the pt is:
- Requesting an ordered lesser potent pain medication.
Least to most potent pain medications are defined
as: acetaminophen < NSAID < tramadol < opioids
(morphine, oxycodone, hydromorphone).
- Requesting a lesser dose of the same medication IF
ORDERED.
- Requesting a less intrusive route of administration
if both routes are prescribed by the provider (PO <
IV).
11/06/24 21:36
Code Status As Directed
Resuscitation Status: Full Code
11/06/24 21:40
Doxycycline [Vibramycin] 100 mg PO NOW STA
11/06/24 22:00
Flush (0.9% Sodium Chloride) [Flush (Nss)] See Dose Instructions IV PER PROTOCOL
11/06/24 22:02
Acetaminophen [Tylenol] 650 mg PO Q4HPRN PRN
11/06/24 22:44
Ipratropium/Albuterol Sulfate [Duoneb] 3 ml INH R Q4HPRN PRN
Melatonin 10 mg PO HSPRN PRN
Metoprolol Xl [Toprol Xl] 25 mg PO HS
Oxycodone [Roxicodone] 5 mg PO Q6HPRN PRN
Xanax 1 mg PO Q6HPRN PRN
11/06/24 22:44
Activity As Directed
Activity Level: With Assistance
I&O [Intake/ Output] As Directed
Frequency: Per unit guidelines
Intake/ Output As Directed
Frequency: Per unit guidelines
Vital Signs As Directed
Frequency: Per unit guidelines
Weight As Directed
Frequency: Daily
Copd Education [RESP] Routine
O2 Therapy [RESP] Routine
Nasal Cannula Liter Flow: 3 LPM
Titrate/Wean O2 to maintain O2 sat greater than (%): 93
Special Instructions: adjust, if necessary, to avoid hyperoxia in CO2 retainers.
Use High Flow O2 if necessary
DX Deep Vein Thrombosis Video Routine
11/06/24 22:50
Cyclobenzaprine HCl [Flexeril] 5 mg PO TIDPRN PRN
11/07/24 06:00
Basic Metabolic Panel IN AM
Procalcitonin IN AM
PCT Algorithmm Indication: Respiratory
11/07/24 08:00
Aspirin Chewable [Low Strength Aspirin] 81 mg PO DAILY
Budesonide/Formoterol 160/4.5 [Symbicort 160/4.5 Mcg Inhaler] 2 puff INH R BID
Bupropion(24Hr)Extended Releas [WELLBUTRIN XL (24 hour extended release)] 300 mg PO DAILY
Doxycycline [Vibramycin] 100 mg PO Q12
Furosemide [Lasix] 20 mg PO DAILY
Guaifenesin [Mucinex] 600 mg PO Q12
Ipratropium/Albuterol Sulfate [Duoneb] 3 ml INH R QID
Loratadine [Claritin] 10 mg PO DAILY
MethylPREDNISolone PF [Solu-Medrol Pf] 40 mg IV Q12
Sertraline HCl [Zoloft] 100 mg PO DAILY
11/07/24 18:00
Enoxaparin Sodium [Lovenox] 40 mg SC QPM
11/07/24 22:00
Cpap [RESP] HS
Patient to use own unit?: No
Set Pressure (cm H2O): 5
11/08/24 11:00
DC Protocol for Telemetry ONCE
Abnormal Lab Results
11/06/24
18:27
WBC 12.7 H 10^3/uL
(4.8-10.8)
RBC 3.93 L 10^6/uL
(4.20-5.40)
MCV 100.3 H fL
(81.0-99.0)
MCHC 31.0 L g/dL
(33.0-37.0)
Abs Immat Gran (auto) 0.1 H 10^3/uL
(0-0.05)
Absolute Neuts (auto) 11.6 H 10^3/uL
(1.4-6.5)
Absolute Lymphs (auto) 0.3 L 10^3/uL
(1.2-3.4)
Immature Gran % 1.1 H %
(0-0.5)
Neutrophils % 91.9 H %
(42.2-75.2)
Lymphocytes % 2.4 L %
(20.5-51.1)
VBG pCO2 54 H mmHg
(35-48)
VBG pO2 63 H mmHg
(30-50)
VBG HCO3 27.8 H mmol/L
(22-27)
BUN 20 H mg/dl
(7-17)
Creatinine 1.2 H mg/dL
(0.6-1.0)
Glucose 132 H mg/dl
(70-99)
11/06/24 18:27
11/06/24 18:27
Vital Signs
Initial and Last Documented VS:
Initial Vital Signs
Temp Pulse Resp BP Pulse Ox
98.9 F 118 18 102/61 80
11/06/24 17:56 11/06/24 17:56 11/06/24 17:56 11/06/24 17:56 11/06/24 17:56
Last Documented Vital Signs
Temp Pulse Resp BP Pulse Ox
98.3 F 104 26 109/63 92
11/06/24 23:12 11/07/24 00:04 11/06/24 23:12 11/07/24 00:04 11/06/24 23:12
MDM/Problems Addressed
Differential Diagnosis Includes:
74yoF here with SOB that began this afternoon. Hx of COPD and CHF. Patient hypoxic to 80% in triage on her home 3L NC. I evaluated patient immediately at bedside. Patient in mild respiratory distress with tachypnea, accessory muscle use, and
generalized wheezing. Differential diagnosis includes but is not limited to: COPD exacerbation, pneumonia, bronchitis, viral illness, CHF exacerbation
Initial ED plan: Check cardiac labs, VBG, blood cultures, COVID/flu swab, EKG, and chest x-ray. Will give hour-long neb treatment and reassess.
*EKG
Interpreted by ED Provider?: Yes
EKG Intrepretation Date: 11/07/24
Heart Rate: 122
Rate: tachycardiac
Rhythm: sinus
[place]: normal axis
Interval: normal interval
QRS Pattern: normal QRS
Ischemia: non-specific ST changes
*Critical Care Note
Total Time (30-74mins, 75-104mins- exclusive of procedures): Not Applicable
Update Note
Update Note:
Chest x-ray shows unchanged mildly prominent pulmonary vasculature without pneumonia or pulmonary edema. COVID/flu testing negative. EKG shows sinus tachycardia. Troponin within normal limits. Patient feeling improved after neb treatment
although still has increased work of breathing. IV Decadron ordered and she was admitted for further management.
ED Attending Note
-
Portions of this chart may have been created with voice recognition software.� Occasional wrong word or��sound alike� substitutions may have occurred due to the inherent limitations of voice recognition software.
Discharge Plan
Departure
Patient Disposition: Admit
Date of Disposition: 11/06/24
Time of Disposition: 19:51
Presentation/result/management discussed w/ accepting MD/DO: Hospitalist
Discharge Problem:
Acute exacerbation of chronic obstructive pulmonary disease
Interventions
Interventions:
*Risk Screen - Suicide Last Done: 11/06/24 17:56
*General Assessment Last Done: 11/06/24 17:56
*Neglect/Abuse Screening Last Done: 11/06/24 17:56
ED- Fall Risk Assessment Last Done: 11/06/24 22:43
*ED COVID-19 Vaccine History Last Done: 11/06/24 17:56
*Nursing Disposition Last Done: 11/06/24 22:43
ED- Cardiac Assessment Last Done: 11/06/24 22:42
ED- Pulmonary Assessment Last Done: 11/06/24 22:42
Discharge Date and Time
Discharge Date/Time: 11/06/24 22:43
[2024-11-06] MEDS: VENTOLIN NEBULES 10 MG INH (18:23)
[2024-11-06] MEDS: ATROVENT NEBULES 1 MG INH (18:24)
[2024-11-06 18:33] VITALS: BP 95/55
[2024-11-06 18:35] VITALS: BP 95/55
[2024-11-06 18:42] LABS: Venous Blood Gas B.E. 0.8 mmol/L (-4 to +4); Venous Blood Gas HCO3 27.8 mmol/L (22-27); Venous Blood Gas O2 Sat % 93.3 %; Venous Blood Gas pCO2 54 mmHg (35-48); Venous Blood Gas pH 7.32 (7.32-7.43); Venous Blood Gas pO2 63 mmHg (30-50)
[2024-11-06 18:43] LABS: % Basophils 0.5 % (0-2); % Eosinophils 0.2 % (0-6); % Immature Granulocytes 1.1 % (0-0.5); % Lymphocytes 2.4 % (20.5-51.1); % Monocytes 3.9 % (1.7-9.3); % Neutrophils 91.9 % (42.2-75.2); Absolute Basophils 0.1 10^3/uL (0-0.2); Absolute Immature Granulocytes 0.1 10^3/uL (0-0.05); Absolute Lymphocytes 0.3 10^3/uL (1.2-3.4); Absolute Monocytes 0.5 10^3/uL (0.1-0.6); Absolute Neutrophils 11.6 10^3/uL (1.4-6.5); Hematocrit 39.4 % (37.0-47.0); Hemoglobin 12.2 g/dL (12.0-16.0); Mean Corpuscular Volume 100.3 fL (81.0-99.0); Mean Platelet Volume 9.3 fL (7.4-10.4); Nucleated Red Blood Cells % 0 %; Platelet Count 293 10^3/uL (130-400); Red Blood Cell Count 3.93 10^6/uL (4.20-5.40); Red Cell Dist. Width 14.4 % (11.5-14.5); White Blood Cell Count 12.7 10^3/uL (4.8-10.8)
[2024-11-06 19:00] VITALS: BP 96/58
[2024-11-06 19:05] LABS: NT-proBNP 14000 pg/ml; Troponin I 0.027 ng/ml
[2024-11-06 19:10] LABS: ALT (SGPT) 18 U/L (0-35); AST (SGOT) 26 U/L (14-36); Albumin 3.9 g/dl (3.5-5.0); Alkaline Phosphatase 113 U/L (38-126); Blood Urea Nitrogen 20 mg/dl (7-17); Calcium 9.4 mg/dl (8.4-10.2); Carbon Dioxide 26 mmol/L (22-30); Chloride 103 mmol/L (98-107); Glucose 132 mg/dl (70-99); Potassium 4.4 mmol/L (3.5-5.1); Sodium 138 mmol/L (135-145); Total Bilirubin 0.7 mg/dl (0.2-1.3); Total Protein 6.4 g/dl (6.3-8.2)
[2024-11-06 19:11] LABS: COVID-19 Antigen Negative (Negative)
[2024-11-06] MEDS: DECADRON 10 MG IV (19:59)
--- NOTE | 2024-11-06 21:22 | HPS.HSE ---
Family Physician
-
Family Physician: Ant Diaz
Chief Complaint
-
Shortness of breath
History of Present Illness
This is a 75-year-old female with past medical history significant for COPD on 3 L home O2 who was recently diagnosed with cardiac nonischemic cardiomyopathy EF of around 30 to 40% presenting to the emergency department soon after discharge from ""hospital with an acute episode of shortness of breath and dyspnea on exertion.
Patient reports that since discharge show at around the time of discharge she was feeling well able to ambulate without significant dyspnea or shortness of breath. She denied having any chest pain. Yesterday she started having some nasal
congestion and runny nose. She felt some abdominal tightness which typical findings of her exacerbations. She denied any liberalization of her diet. She reported that today she is suddenly got worse with severe dyspnea on exertion where she could
not walk across the room. She was wheezing and she could not catch her breath. She could not even get up from the commode due to severe dyspnea. She denied any lower extremity swelling. She denies fevers or chills. She has no sick contacts.
Denies any acute changes in medications.
He in the emergency department blood pressure was low which is not typical for her at 95/50, she was tachycardic to 112 respiratory rate was 27 and oxygen saturation was 97% on 3 L. WBC was 12.7 hemoglobin 12.1 and plate count of 293. Electrolytes
BUN/creatinine were stable. Influenza and COVID test were negative. Chest x-ray shows no acute infiltrates and unchanged from prior.
Medical History
Past Medical History
Past Medical History: Reports Other
Additional Past Medical History:
CHF
Chronic Hypoxic Respiratory Insufficiency
COPD
Chronic HFpEF
Valvular Heart Disease: Mild Aortic Stenosis, Mild/Moderate Mitral Regurg
CKD Stage III
Chronic Back Pain secondary to L2 Compression Fracture
Anxiety/Depression
Morbid Obesity
Obstructive Sleep Apnea
Past Surgical History: Reports Other
Additional Past Surgical History:
Cholecystectomy
Left Shoulder Reconstruction
Fasciotomy
Social History
Tobacco: Former Smoker
Alcohol: None
Drug: None
Living: With Family
Employment: Retired
Family History
Family History: Not pertinent
Allergies / Home Medications
Allergies reflects when Allergies were last updated in [employer]
Home Medications with original date entered in [employer]
Allergy/Medication List:
Allergies
Allergy/AdvReac Type Severity Reaction Status Date / Time
ampicillin Allergy Hives Verified 10/05/24 19:40
coconut Allergy Hives Verified 10/05/24 19:40
mustard Allergy Hives Verified 10/05/24 19:40
Home Medications
albuterol sulfate 90 mcg/actuation aerosol inhaler 2 puff inhalation R Q4HPRN PRN sob/wheezing 12/29/22
bupropion HCl 300 mg 24 hr tablet, extended release 300 mg PO DAILY Depression 07/19/23
budesonide 160 mcg-glycopyr 9 mcg-formot 4.8 mcg/actuation HFA inhaler (Breztri Aerosphere) 2 inh inhalation R BID Lung/Breathing Issues 01/18/24
furosemide 40 mg tablet 20 mg PO DAILY Fluid Retention/Swelling 02/20/24
albuterol sulfate 2.5 mg/3 mL (0.083 %) solution for nebulization 2.5 mg inhalation R Q4HPRN PRN sob 04/17/24
acetaminophen 500 mg tablet (Tylenol Extra Strength) 1,000 mg PO BID Pain 06/22/24
melatonin 5 mg tablet 10 mg PO HSPRN PRN sleep 06/22/24
cyclobenzaprine 5 mg tablet 5 mg PO TIDPRN PRN muscle spasms 08/01/24
guaifenesin 600 mg tablet, extended release 12 hr 600 mg PO Q12H Lung/breathing issues 08/01/24
sertraline 100 mg tablet 100 mg PO DAILY Depression 08/01/24
loratadine 10 mg tablet (Claritin) 10 mg PO DAILY Allergies 10/08/24
aspirin 81 mg chewable tablet 81 mg PO DAILY #30 tabs 10/22/24
metoprolol succinate 25 mg tablet,extended release 24 hr 25 mg PO HS #30 tabs 10/22/24
oxycodone 5 mg tablet 5 mg PO Q6HPRN PRN severe pain #10 tabs 10/22/24
Xanax 1.25 mg PO Q6HPRN PRN anxiety 11/06/24
Review of Systems
-
History Source: Patient
Constitutional: Reports No Symptoms
EENT: Reports Runny Nose
Respiratory: Reports Trouble Breathing
Cardiac: Reports No Symptoms
Abdomen/GI: Reports No Symptoms
: Reports No Symptoms
Musculoskeletal: Reports No Symptoms
Skin: Reports No Symptoms
Neurological: Reports No Symptoms
Endocrine: Reports No Symptoms
Hematologic/Lymphatic: Reports No Symptoms
Psych: Reports No Symptoms
Physical Exam
Vital Signs
Vital Signs
Temp Pulse Resp BP Pulse Ox
98.9 F 112 25 95/55 98
11/06/24 17:56 11/06/24 18:35 11/06/24 18:35 11/06/24 18:35 11/06/24 18:35
Physical Exam
General: Well Developed, Well Nourished and Respiratory Distress
HEENT: NormoCephalic, Anicteric, Moist mucous membranes and Atraumatic
Respiratory: Wheezes
Cardiac: S1/S2 and Tachycardia
Breast: Deferred by me
GI: Soft, Non Tender, Non Distended and Normal Bowel Sounds
Rectal: Deferred by Provider
Genito-urinary: Deferred by me
Musculoskeletal: No Clubbing, No Cyanosis and No Edema
Skin: Warm
Neuro: AO x 3 and Nonfocal/grossly intact
Hematologic/Lymphatic: No Lymphadenopathy
Psych: Calm
Laboratory Results
-
11/06/24 18:27
11/06/24 18:27
Laboratory Results
Total Bilirubin 0.7 mg/dl (0.2-1.3) 11/06/24 18:27
AST 26 U/L (14-36) 11/06/24 18:27
ALT 18 U/L (0-35) 11/06/24 18:27
Alkaline Phosphatase 113 U/L (38-126) 11/06/24 18:27
Troponin I 0.027 ng/ml 11/06/24 18:27
Data Reviewed
-
Diagnostic Radiology: Image Personally Visualized and interpreted and Report Reviewed by me
Medical Tests (Nuc Med, Echo, EKG etc): Image Personally Visualized and interpreted
Lab Data: Labs Reviewed by me
Old Records: Reviewed
Impression/Plan
-
IMPRESSION:
74-year-old female with a history of advanced COPD on 3 to 4 L home O2, history of diastolic CHF, recent diagnosis of systolic CHF with depressed EF of around 30 to 40% status post cath showing nonobstructive coronary artery disease who presents to
the emergency department after being discharged from a prolonged hospital stay with wheezing and dyspnea on exertion. She also reports shortness of breath. Patient reports cough that is not different from her chronic cough. She reports some sinus
congestion and runny nose. No fevers or chills and no new sick contacts since her discharge. She has been compliant with her medications. ED findings shows no changes on x-ray, no obvious infection, troponin negative, ECG without ischemia and BNP
chronically elevated. Negative COVID and flu. Suspect mild exacerbation of her COPD on top of severe chronic COPD.
PLAN:
1. COPD Exacerbation
- admit to telemetry
- continue nebs RTC for now
- prn albuterol
- solumedrol 40mg q 12
- oxygen support
- doxycycline for now
- continue cardiac meds as below
2. CHF - Cannot rule out exacerbation but no evidence on exam
- continue sean elasix of 20mg daily, limited by pb
- continue metoprolol succinate
- cannot tolerate additional GDMT due to bp
- daily weights and i/os
- fluid restriction
3. JUAN ANTONIO
- CPAP HS
DVT PPX - lovenox sq
Code status - full code
[2024-11-06] MEDS: VIBRAMYCIN 100 MG PO (22:26)
[2024-11-06] MEDS: TYLENOL 650 MG PO (22:26)
[2024-11-06 23:12] VITALS: BP 109/63
[2024-11-07] MEDS: TOPROL XL 25 MG PO ×2 (00:04→20:49)
[2024-11-07] MEDS: ROXICODONE 5 MG PO (00:05)
[2024-11-07 03:53] VITALS: BP 103/61
[2024-11-07] MEDS: MUCINEX 600 MG PO ×2 (08:00→20:49)
[2024-11-07] MEDS: LOW STRENGTH ASPIRIN 81 MG PO (08:01)
[2024-11-07] MEDS: ZOLOFT 100 MG PO (08:01)
[2024-11-07] MEDS: WELLBUTRIN XL (24 hour extended release) 300 MG PO (08:01)
[2024-11-07] MEDS: SOLU-MEDROL PF 40 MG IV ×2 (08:01→20:48)
[2024-11-07] MEDS: CLARITIN 10 MG PO (08:01)
[2024-11-07] MEDS: VIBRAMYCIN 100 MG PO ×2 (08:01→20:49)
[2024-11-07] MEDS: LASIX 40 MG IV (08:02)
[2024-11-07] MEDS: SPIRIVA RESPIMAT 2.5 MCG 2 PUFF INH (08:03)
[2024-11-07] MEDS: SYMBICORT 160/4.5 MCG INHALER 2 PUFF INH ×2 (08:03→20:52)
[2024-11-07 08:54] LABS: Blood Urea Nitrogen 22 mg/dl (7-17); Calcium 8.9 mg/dl (8.4-10.2); Carbon Dioxide 28 mmol/L (22-30); Chloride 99 mmol/L (98-107); Glucose 100 mg/dl (70-99); Potassium 4.3 mmol/L (3.5-5.1); Sodium 134 mmol/L (135-145)
--- NOTE | 2024-11-07 09:30 | W.PN.HOSP.TC ---
Today's Communication/Plan
-
see PN
Assessment / Plan
Assessment / Plan
75yo F with PMHx of COPD with chronic hypoxic failure on 3L home O2, HFrEF, anxiety, CKD stage 3, recently managed for CHF exacerbation discharged from on 10/22/24 came with worsening SOB and also c/o L reinoso wound. Previously discharged to rehab,
now came from home. Patient is not compliant with diet and also due to insurance issures and hypotension - linited in GDMT selection for her CHF
A/P:
#Acute on chronic hypoxic respiratory failure 2/2 combined HFrEF and COPD exacerbation
#Ischemic CM
Wheezing on admission and proBNP [id number]
Taper steroids and cont bronchodilators
Mucinex
Lasix, low salt diet, FR, follow daily kidney function and electrolytes
Cardiology consult
S/P R and L cardiac cath 10/19/24 with mildly increased biventricular pressures
Echo 10/10/24: EF 35-40%, global hypokinesis, moderate MR and AR
GDMT limited by hypotension on last admission
wean off O2 to 3L
#L reinoso wound
Wound care
wound culture
XR
Might need Abx depending on the Cx
#Anxiety
cont meds
#Essential HTN
#CKD stage 3b
cont home meds
avoid nephrotoxins
#mactocytosis
check B12, folate
DVT ppx hep
Full code
I have spent at least 59min reviewing chart, test results, communication with consultants and direct patient care
Anticipated Discharge: > 48 hours
Subjective/Interval History
-
Date of Service: November 07, 2024
Objective Data
-
Labs:
Laboratory Results
11/07/24
06:50
Sodium 134 L
Potassium 4.3
Chloride 99
Carbon Dioxide 28
BUN 22 H
Creatinine 1.2 H
Glucose 100 H
Calcium 8.9
Vital Signs:
Vital Signs
Temp Pulse Resp BP Pulse Ox
97.5 F 78 22 135/73 95
11/07/24 07:25 11/07/24 08:10 11/07/24 08:10 11/07/24 08:02 11/07/24 08:10
I&O
11/06/24 11/07/24 11/08/24
06:59 06:59 06:59
Intake Total 240 / 240
Output Total 150 / 150
Balance 90 / 90
Review of Systems
-
History Source: Patient
All other systems: Reviewed and negative
Respiratory: Reports Cough and Wheezing
Skin: Reports Other (L front reinoso wound)
Physical Exam
-
General: No Apparent Distress
HEENT: Normocephalic and Atraumatic
Respiratory: Rales and Crackles
Cardiac: Regular Rhythm
GI: Soft, Nontender and Nondistended
Musculoskeletal: No Clubbing, No Cyanosis and No Edema
Skin: Other (L reinoso wound with minimal swelling, no significant signs of infection)
Neuro: Awake, Alert, Oriented and AO x 3
Psych: Calm
[2024-11-07] MEDS: VENTOLIN NEBULES 2.5 MG INH ×3 (11:13→20:52)
[2024-11-07 11:30] VITALS: BP 114/58
--- NOTE | 2024-11-07 11:41 | CON.CAR ---
Consultation
Consultation Request
Date/Time Consultation Requested: 11/07/2024
Date/Time Consultation Performed: 11/07/2024
Reason for Consultation: Shortness of breath
Medical History
-
Chief Complaint: Shortness of breath
History of Present Illness:
Ms Gregg is a 74-year-old woman with a past medical history significant for COPD, chronic hypoxic respiratory failure with dependency on 3 L home oxygen and chronic steroids, nonischemic cardiomyopathy with LVEF 30%, limited GDMT due to
hypotension and [place], presented with shortness of breath.
Patient was recently noted to have cardiomyopathy with drop in LVEF and cardiac catheterization showed nonobstructive coronary artery disease. Patient was started on maximally tolerated GDMT. Patient was noted to have a acute on chronic renal
failure with creatinine went up to 2.6. Since then creatinine has gradually been coming down and presented now with a creatinine of 1.2. Baseline previously was 1.4.
Patient was not able to start spironolactone due to [place] and Farxiga was not affordable. In the ER patient was noted to have clear chest x-ray with vascular congestion without any effusions or pulmonary edema. Patient's previously noted pneumonia
is also cleared. No sign of pleural effusion noted.
Past Medical History
Past Medical History: CAD (Nonobstructive coronary artery disease), CHF (Heart failure with reduced ejection fraction with a EF of 30%.. NYHA class III), COPD (Advance with dependency on oxygen and steroids.), HTN, Hypercholesterolemia, Renal
Failure (CKD stage III), Valvular Disease (Moderate MR and mild ) and Other (Chronic back pain with L2 compression fracture, obstructive sleep apnea, morbid obesity)
Past Surgical History: Other (Cholecystectomy, Left Shoulder Reconstruction, Fasciotomy)
Social History
Tobacco: Former Smoker
Alcohol: None
Drug: None
Living: With Family
Employment: Retired
Family History
Family History: Reviewed & Not Pertinent
Allergies / Home Medications
Allergy/AdvReac Type Severity Reaction Status Date / Time
ampicillin Allergy Hives Verified 10/05/24 19:40
coconut Allergy Hives Verified 10/05/24 19:40
mustard Allergy Hives Verified 10/05/24 19:40
�Medication �Instructions �Recorded �Confirmed �Type
albuterol sulfate 90 mcg/actuation 2 puff inhalation R Q4HPRN PRN 12/29/22 11/06/24 History
aerosol inhaler sob/wheezing
bupropion HCl 300 mg 24 hr tablet, 300 mg PO DAILY Depression 07/19/23 11/06/24 History
extended release
budesonide 160 mcg-glycopyr 9 2 inh inhalation R BID 01/18/24 11/06/24 History
mcg-formot 4.8 mcg/actuation HFA Lung/Breathing Issues
inhaler (Breztri Aerosphere)
furosemide 40 mg tablet 20 mg PO DAILY Fluid 02/20/24 11/06/24 History
Retention/Swelling
albuterol sulfate 2.5 mg/3 mL 2.5 mg inhalation R Q4HPRN PRN sob 04/17/24 11/06/24 History
(0.083 %) solution for nebulization
acetaminophen 500 mg tablet 1,000 mg PO BID Pain 06/22/24 11/06/24 History
(Tylenol Extra Strength)
melatonin 5 mg tablet 10 mg PO HSPRN PRN sleep 06/22/24 11/06/24 History
cyclobenzaprine 5 mg tablet 5 mg PO TIDPRN PRN muscle spasms 08/01/24 11/06/24 History
guaifenesin 600 mg tablet, 600 mg PO Q12H Lung/breathing 08/01/24 11/06/24 History
extended release 12 hr issues
sertraline 100 mg tablet 100 mg PO DAILY Depression 08/01/24 11/06/24 History
loratadine 10 mg tablet (Claritin) 10 mg PO DAILY Allergies 10/08/24 11/06/24 History
aspirin 81 mg chewable tablet 81 mg PO DAILY #30 tabs 10/22/24 11/06/24 Rx
metoprolol succinate 25 mg 25 mg PO HS #30 tabs 10/22/24 11/06/24 Rx
tablet,extended release 24 hr
oxycodone 5 mg tablet 5 mg PO Q6HPRN PRN severe pain #10 10/22/24 11/06/24 Rx
tabs
Xanax 1.25 mg PO Q6HPRN PRN anxiety 11/06/24 History
Review of Systems
-
All other systems: Negative unless noted
Physical Exam
Vital Signs
Temp Pulse Resp BP Pulse Ox
97.5 F 74 20 135/73 95
11/07/24 07:25 11/07/24 11:15 11/07/24 11:15 11/07/24 08:02 11/07/24 11:15
Lab Results
11/06/24 18:27
11/07/24 06:50
Troponin I 0.027 ng/ml 11/06/24 18:27
Zyv-Y-Layyfgdhmqw Pept 77417 pg/ml 11/06/24 18:27
Physical Exam
General: Well Developed, Well Nourished and Other (On oxygen)
HEENT: Normocephalic and Anicteric
Respiratory: Rhonchi and Non Labored Respirations
Cardiac: S1/S2, Regular Rhythm and Murmur
GI: Soft, Non Distended and Normal Bowel Sounds
Musculoskeletal: No Clubbing, No Cyanosis and No Edema
Skin: Warm, Dry and Other (Houser wound covered in the bandages.)
Neuro: Awake, Alert, Oriented and AO x 3
Impression / Plan
-
74F with HFrEF (EF 35-40%), COPD (steroid & O2 dependent), and chronic back pain on palliative care at home ([facility]), presented with shortness of breath.
Primary children's author: Dr. 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
Cardiomyopathy, HFrEF,
-Recently identified in October 2024
-cath without obstructive CAD
-Previously HFpEF, new reduction in EF to 35 to 40%. Improved s/p IV diuresis. Given renal dysfunction and relatively normal filling pressures,
-Status post Lasix in the ER.
-Continue Lasix 40 mg IV once a day likely can be switched to p.o. tomorrow
-GDMT:
--Will start entresto today.
--on metoprolol
--MRA on hold - start Entresto first
--SGLT2i not affordable
[place], improving.
-Acute on chronic. Creatinine up to 2.6 on 10/14, now back to baseline 1.2 ( Baseline 1.5-1.8)
-Due to combination of diuresis, ARB initiation, and MRA - restarting Entresto now one at a time.
-Lasix is restarted.
Abnormal troponin, 2/2 nonischemic myocardial injury
Back pain
-This is her main complaint
-Continue home pain control. Followed by palliative.
Valvular heart disease
-Mild to moderate mitral regurgitation
-Mild low gradient aortic stenosis by echo and cath
-Moderate aortic regurgitation
COPD, steroid and oxygen dependent
-Reported trial of increased steroids prior to admission
Former tobacco use, continue cessation recommended
Data Reviewed
-
EKG: Tracing Personally Visualized and interpreted
Radiology: Image Personally Visualized and interpreted and Report Reviewed by me
Medical Tests (Nuc Med, Echo etc): Report Reviewed by me
Labs: Labs Reviewed by me
Old Records: Reviewed
[2024-11-07 12:23] LABS: TSH Reflex To Free T4 1.12 uIU/ml (0.47-4.68)
[2024-11-07 13:48] LABS: Glycohemoglobin (HgbA1c) 5.3 % (4.0-5.6)
[2024-11-07 15:37] VITALS: BP 119/77
--- NOTE | 2024-11-07 16:10 | CM ---
Addendum entered by Gertrudis Hill 11/07/24 16:20:
CROWDER form explained; form signed @ 1605
Original Note:
Initial Assessment completed
Pharmacy verified: [facility] @ [address] [place] [address]
Patient lives with her daughter; 1st floor set up; bathroom has tub w/ shower and shower chair
PLOF: reported she is independent with personal care but does not get in/out of tub unless her daughter is present; ambulates with rolling walker or cane; also has a wheelchair
[facility] to [facility] @
DME: [facility] [facility] Home Oxygen via [employer]; [employer] is vendor
Daughter will transport home
No SNF utilization history
Discharge plan to be determined; PT assessment pending; CM will monitor for discharge needs and support accordingly
--- NOTE | 2024-11-07 18:22 | W.PN.UPDATE ---
Update Note
Progress Note Update
As per PDMP check - pharmacist could not find home Xanax Rx. Patient reported that she still using Rx that she obtained in [place] many years ago, just using it rarely. Will not continue reported dose. Start Xanax 0.25mg HSPRN for anxiety while
hospitalized only
[2024-11-07] MEDS: XANAX 0.25 MG PO (18:27)
[2024-11-07 19:41] VITALS: BP 142/76
[2024-11-07] MEDS: HEPARIN SC (20:44)
[2024-11-07] MEDS: ENTRESTO 24 MG/26 MG 1 TAB PO (20:48)
[2024-11-07 23:59] VITALS: BP 140/77
[2024-11-08] VITALS (7 sets, daily range): BP systolic 104–130; BP diastolic 53–68; PULSE 98; O2SAT 93
[2024-11-08] MEDS: VENTOLIN NEBULES 2.5 MG INH ×2 (07:19→11:13)
[2024-11-08] MEDS: SPIRIVA RESPIMAT 2.5 MCG 2 PUFF INH (07:19)
[2024-11-08] MEDS: SYMBICORT 160/4.5 MCG INHALER 2 PUFF INH (07:19)
--- NOTE | 2024-11-08 07:39 | W.PN.CD ---
Today's Communication / Plan
-
continue diuresis and monitor renal function. Note, todays weight is similar to weight on 10/19/24 when patient had cath and PCWP 16
optimize tx of COPD per hospitalists and pulmonary
await CT
Impression / Plan
-
74F with HFrEF (EF 35-40%), COPD (steroid & O2 dependent), and chronic back pain on palliative care at home ([facility]), presented with shortness of breath.
Primary customer service consultant: Dr. 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
Resp insuff.
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
- wheezing and crackles at bases
continue diuretic and await CT scan
-
Cardiomyopathy, HFrEF,
-Recently identified in October 2024
-cath 10/19/24 without obstructive CAD 9 only mild luminal irregularlties) PCWP 16 and weight 86.4kg on that day.
-Previously HFpEF, new reduction in EF to 35 to 40%. Improved s/p IV diuresis. Given renal dysfunction and relatively normal filling pressures,
-Status post Lasix in the ER.
-Continue Lasix 40 mg IV once a day
-GDMT:
--Entresto started this admit.
--on metoprolol
--MRA on hold - start Entresto first
--SGLT2i not affordable
[place], improving.
-Acute on chronic. Creatinine up to 2.6 on 10/14, now back to baseline 1.2 ( Baseline 1.5-1.8)
-Due to combination of diuresis, ARB initiation, and MRA - restarting Entresto now one at a time.
-Lasix is restarted.
Abnormal troponin, 2/2 nonischemic myocardial injury
Back pain
-This is her main complaint
-Continue home pain control. Followed by palliative.
Valvular heart disease
-Mild to moderate mitral regurgitation
-Mild low gradient aortic stenosis by echo and cath
-Moderate aortic regurgitation
COPD, steroid and oxygen dependent
-Reported trial of increased steroids prior to admission
Former tobacco use, continue cessation recommended
Physical Exam
Vital Signs/Labs
Vital Signs
Temp Pulse Resp BP Pulse Ox
98.3 F 68 18 123/68 94
11/08/24 03:18 11/08/24 07:23 11/08/24 07:23 11/08/24 03:18 11/08/24 07:23
11/07/24 11/08/24 11/09/24
06:59 06:59 06:59
Actual Weight 85.757 kg 86.636 kg
11/06/24
18:27
Mul-G-Gyozxkymnqk Pept [id number]
LAB Results
11/06/24
18:27
Troponin I 0.027
Physical Exam
Constitutional: No acute distress
Cardiovascular: Rhythm & rate is regular
Respiratory: Wheeze Present and Crackles Present
GI: Soft and Normal bowel sounds
Neuro/Psych: Alert and Oriented
Data Reviewed
-
Date of Service: November 08, 2024
Medical Decision Making: Reviewed Test Results
[2024-11-08] MEDS: LOW STRENGTH ASPIRIN 81 MG PO (07:46)
[2024-11-08] MEDS: WELLBUTRIN XL (24 hour extended release) 300 MG PO (07:46)
[2024-11-08] MEDS: CLARITIN 10 MG PO (07:46)
[2024-11-08] MEDS: MUCINEX 600 MG PO ×2 (07:46→20:41)
[2024-11-08] MEDS: VIBRAMYCIN 100 MG PO ×2 (07:46→20:41)
[2024-11-08] MEDS: ZOLOFT 100 MG PO (07:46)
[2024-11-08] MEDS: SOLU-MEDROL PF 40 MG IV (07:47)
[2024-11-08] MEDS: HEPARIN 5000 UNITS SC ×2 (07:50→20:41)
[2024-11-08] MEDS: ENTRESTO 24 MG/26 MG 1 TAB PO ×2 (07:51→20:40)
[2024-11-08] MEDS: LASIX 40 MG IV (07:51)
--- NOTE | 2024-11-08 09:35 | WOUNDNOTE ---
[facility] RN note: Patient admitted with respiratory failure
See H&P for complete history.
PMH: COPD, chronic hypoxic respiratory failure on home 02 3L, HF, anxiety, CKD stage 3. Recent admission and discharge from [facility] on 10/19 for CHF.
Wound Location and type/assessment: Patient admitted with left reinoso wound. She reports injuring left reinoso when in rehab and she cut the flap over wound. On assessment, wound is full thickness and friable. Minimal erythema sounding wound and
drainage is sanguinous. Patient with stage 1 to sacrum. Patient is able to turn self in bed. She is incontinent of urine. Heels intact
Appetite: States good appetite
Pressure redistribution devices in place: Versa Care, heels off-loaded on pillows
Plan: Wound cleaned with saline and non-adherent dressing placed over wound. Awaiting surgical consult. CHRISTOPHE Ramirez updated. Will follow as needed.
Recommend follow up at wound care center upon discharge.
--- NOTE | 2024-11-08 09:35 | WOUNDNOTE ---
LEFT LOWER LEG WOUND
[2024-11-08 09:53] LABS: Hematocrit 39.7 % (37.0-47.0); Hemoglobin 12.3 g/dL (12.0-16.0); Mean Corpuscular Hgb 31.1 pg (27.0-31.0); Mean Corpuscular Volume 100.5 fL (81.0-99.0); Red Blood Cell Count 3.95 10^6/uL (4.20-5.40); Red Cell Dist. Width 14.3 % (11.5-14.5); White Blood Cell Count 11.6 10^3/uL (4.8-10.8)
[2024-11-08] MEDS: ROCEPHIN 1000 MG IV (10:17)
[2024-11-08] MEDS: STERILE WATER FOR INJECTION 10 ML IV (10:18)
[2024-11-08 10:39] LABS: ALT (SGPT) 18 U/L (0-35); AST (SGOT) 22 U/L (14-36); Albumin 3.7 g/dl (3.5-5.0); Alkaline Phosphatase 104 U/L (38-126); Blood Urea Nitrogen 31 mg/dl (7-17); Calcium 8.9 mg/dl (8.4-10.2); Carbon Dioxide 29 mmol/L (22-30); Chloride 97 mmol/L (98-107); Glucose 115 mg/dl (70-99); Magnesium 1.9 mg/dl (1.6-2.3); Potassium 4.4 mmol/L (3.5-5.1); Sodium 137 mmol/L (135-145); Total Bilirubin 0.3 mg/dl (0.2-1.3); Total Protein 6.3 g/dl (6.3-8.2); eGFR 43.15
--- NOTE | 2024-11-08 11:02 | CON.GS ---
Consultation
-
Requesting Provider: Martha
Performing Provider: Gabriella
Reason for Consultation: Left calf wound
Medical History
-
Chief Complaint: Left calf wound
History of Present Illness:
74F admitted for COPD exacerbation with recent soft tissue injury to anterior left calf. Hx of nec fasc in this extremity. She had a minor trauma that caused the injury, she noted a skin flap and removed it herself with scissors. She denies
bleeding, pus, redness, she endorses tenderness to the area.
Past Medical History
Past Medical History: Other (CHF Chronic Hypoxic Respiratory Insufficiency COPD Chronic HFpEF Valvular Heart Disease: Mild Aortic Stenosis, Mild/Moderate Mitral Regurg CKD Stage III Chronic Back Pain secondary to L2 Compression Fracture
Anxiety/Depression Morbid Obesity Obstructive Sleep Apnea)
Past Surgical History: Other (Cholecystectomy Left Shoulder Reconstruction LLE Fasciotomy and wound vac)
Social History
Tobacco: Former Smoker
Alcohol: None
Drug: None
Living: With Family
Family History
Family History: Reviewed & Noncontributory
Allergies / Home Medications
Allergy/AdvReac Type Severity Reaction Status Date / Time
ampicillin Allergy Hives Verified 10/05/24 19:40
coconut Allergy Hives Verified 10/05/24 19:40
mustard Allergy Hives Verified 10/05/24 19:40
�Medication �Instructions �Recorded �Confirmed �Type
albuterol sulfate 90 mcg/actuation 2 puff inhalation R Q4HPRN PRN 12/29/22 11/06/24 History
aerosol inhaler sob/wheezing
bupropion HCl 300 mg 24 hr tablet, 300 mg PO DAILY Depression 07/19/23 11/06/24 History
extended release
budesonide 160 mcg-glycopyr 9 2 inh inhalation R BID 01/18/24 11/06/24 History
mcg-formot 4.8 mcg/actuation HFA Lung/Breathing Issues
inhaler (Breztri Aerosphere)
furosemide 40 mg tablet 20 mg PO DAILY Fluid 02/20/24 11/06/24 History
Retention/Swelling
albuterol sulfate 2.5 mg/3 mL 2.5 mg inhalation R Q4HPRN PRN sob 04/17/24 11/06/24 History
(0.083 %) solution for nebulization
acetaminophen 500 mg tablet 1,000 mg PO BID Pain 06/22/24 11/06/24 History
(Tylenol Extra Strength)
melatonin 5 mg tablet 10 mg PO HSPRN PRN sleep 06/22/24 11/06/24 History
cyclobenzaprine 5 mg tablet 5 mg PO TIDPRN PRN muscle spasms 08/01/24 11/06/24 History
guaifenesin 600 mg tablet, 600 mg PO Q12H Lung/breathing 08/01/24 11/06/24 History
extended release 12 hr issues
sertraline 100 mg tablet 100 mg PO DAILY Depression 08/01/24 11/06/24 History
loratadine 10 mg tablet (Claritin) 10 mg PO DAILY Allergies 10/08/24 11/06/24 History
aspirin 81 mg chewable tablet 81 mg PO DAILY #30 tabs 10/22/24 11/06/24 Rx
metoprolol succinate 25 mg 25 mg PO HS #30 tabs 10/22/24 11/06/24 Rx
tablet,extended release 24 hr
oxycodone 5 mg tablet 5 mg PO Q6HPRN PRN severe pain #10 10/22/24 11/06/24 Rx
tabs
Xanax 1.25 mg PO Q6HPRN PRN anxiety 11/06/24 History
Review of Systems
-
A 10 point review of systems was completed, and was negative except as per HPI.
Physical Exam
Vital Signs
Temp Pulse Resp BP Pulse Ox
97.6 F 90 20 128/70 95
11/08/24 07:25 11/08/24 07:51 11/08/24 07:25 11/08/24 07:51 11/08/24 07:25
11/07/24 11/08/24 11/09/24
06:59 06:59 06:59
Actual Weight 85.757 kg 86.636 kg
Lab Results
11/08/24 09:25
11/08/24 09:25
WBC 11.6 10^3/uL (4.8-10.8) H 11/08/24 09:25
Hgb 12.3 g/dL (12.0-16.0) 11/08/24 09:
Hct 39.7 % (37.0-47.0) 11/08/24 09:25
Plt Count 293 10^3/uL (130-400) 11/06/24 18:
Abs Immat Gran (auto) 0.1 10^3/uL (0-0.05) H 11/06/24 18:
Neutrophils % 91.9 % (42.2-75.2) H 11/06/24 18:27
Physical Exam
General: Well Developed, Well Nourished and No Apparent Distress
Skin: Other (roughly 3cm x 3cm laceration to anterior left calf without fluctuance, purulence, odor or erythema)
Neuro: AO x 3
Psych: Calm
Data Reviewed
-
Old Records: Reviewed
Assessment / Plan
-
74F with minor laceration to left calf
Rec local wound care with saline wet to dry with woven gauze and daily changes
Pls call with ?s
[2024-11-08 11:19] LABS: % Basophils 0.2 % (0-2); % Immature Granulocytes 0.9 % (0-0.5); % Lymphocytes 5.5 % (20.5-51.1); % Monocytes 7.4 % (1.7-9.3); Absolute Immature Granulocytes 0.1 10^3/uL (0-0.05); Absolute Lymphocytes 0.6 10^3/uL (1.2-3.4); Absolute Monocytes 0.9 10^3/uL (0.1-0.6); Nucleated Red Blood Cells % 0 %
[2024-11-08 11:25] LABS: Folate 2.4 ng/ml (2.76-20)
--- NOTE | 2024-11-08 11:29 | W.PN.HOSP.TC ---
Today's Communication/Plan
-
add multivitamins
contdiuresis - however appears close to euvolemia
pulm conult
switch to prednisone
add Ceftriaxone
Assessment / Plan
Assessment / Plan
75yo F with PMHx of COPD with chronic hypoxic failure on 3L home O2, HFrEF, anxiety, CKD stage 3, recently managed for CHF exacerbation discharged from on 10/22/24 came with worsening SOB and also c/o L reinoso wound. Previously discharged to rehab,
now came from home. Patient is not compliant with diet and also due to insurance issues and hypotension - limited in GDMT selection for her CHF. CT chest showed significant mucus plugging, emphysema and subacute rib Fx
A/P:
#Acute on chronic hypoxic respiratory failure 2/2 combined HFrEF and COPD exacerbation (centrilobular emphysema)
#Mild bronchiectasis within the basal aspects of both lower lobes with scattered areas of bronchial impaction within the right lower lobe
#Ischemic CM
Wheezing on admission and proBNP [id number]
Taper steroids and cont bronchodilators
Mucinex
Lasix, low salt diet, FR, follow daily kidney function and electrolytes
Cardiology consult
S/P R and L cardiac cath 10/19/24 with mildly increased biventricular pressures
Echo 10/10/24: EF 35-40%, global hypokinesis, moderate MR and AR
GDMT limited by hypotension on last admission
wean off O2 to 3L
Pulmonology consult
#Unchanged 6 to 7 mm nodule within the anterior right upper lobe
#Unchanged 5 mm nodule within the posterior left upper lobe adjacent to the fissure
#Ill-defined 3 to 4 mm groundglass nodule within the right middle lobe
pulm eval
can be inflammatory? add Ceftriaxone to Doxy
#exophytic nodule arises from the posterior left upper lobe measuring 15 mm
stable from june 2024
#multiple subacute appearing anterior right rib fractures, new compared to the prior CT.
#multiple compression deformities within the thoracic spine involving T5, T6, T8, T9, T10, and T11
Most likely osteoporotic
Outpatient treatment advised - daughter verbalized understanding. Will follow with PCP
add Oscal
check vit d 0.25
#L reinoso wound
as per patient - started in rehab
Wound care
wound culture
XR: No acute fracture or dislocation. Partially visualized regional joints demonstrate degenerative changes. Anterior reinoso soft tissue defect. No radiopaque foreign bodies. No overt radiographic evidence for osteomyelitis. Chronic appearing
periosteal reaction of the fibula.
GenSx - cont wound care, no suturing
#Anxiety
cont meds
#Essential HTN
#CKD stage 3b
cont home meds
avoid nephrotoxins
#macrocytosis 2/2 folate deficiency
replete
add thiamine
check B12
add multivitamin
DVT ppx hep
Full code
I have spent at least 59min reviewing chart, test results, communication with consultants and direct patient care
Anticipated Discharge: > 48 hours
Subjective/Interval History
-
Date of Service: November 08, 2024
Objective Data
-
Labs:
Laboratory Results
11/08/24
09:25
WBC 11.6 H
Hgb 12.3
Hct 39.7
Plt Count
Sodium 137
Potassium 4.4
Chloride 97 L
Carbon Dioxide 29
BUN 31 H
Creatinine 1.3 H
Glucose 115 H
Calcium 8.9
Total Bilirubin 0.3
AST 22
ALT 18
Alkaline Phosphatase 104
Vital Signs:
Vital Signs
Temp Pulse Resp BP Pulse Ox
97.6 F 73 18 130/65 94
11/08/24 11:13 11/08/24 11:16 11/08/24 11:16 11/08/24 11:13 11/08/24 11:16
I&O
11/07/24 11/08/24 11/09/24
06:59 06:59 06:59
Intake Total 240 / 240 720 / 720
Output Total 150 / 150 1200 / 1200
Balance 90 / 90 -480 / -480
Review of Systems
-
History Source: Patient
All other systems: Reviewed and negative
Psych: Reports Other (hallucinations)
Physical Exam
-
General: No Apparent Distress
HEENT: Normocephalic and Atraumatic
Respiratory: Wheezes and Crackles
Cardiac: Regular Rhythm
GI: Soft, Nontender and Nondistended
Genito-urinary: No Costovertebral Tender
Musculoskeletal: No Clubbing, No Cyanosis and No Edema
Skin: Warm and Other (L reinoso wound)
Neuro: Awake, Alert, Oriented and AO x 3
Psych: Other (intermittent hallucintions)
[2024-11-08 12:24] LABS: Vitamin B12 552 pg/ml (239-931)
--- NOTE | 2024-11-08 12:33 | WOUNDNOTE ---
[facility] RN note: Patient admitted with respiratory failure
See H&P for complete history.
PMH: COPD, chronic hypoxic respiratory failure on home 02 3L, HF, anxiety, CKD stage 3. Recent admission and discharge from [facility] on 10/19 for CHF.
Wound Location and type/assessment: Patient admitted with left reinoso wound. She reports injuring left reinoso when in rehab and she cut the flap over wound. On assessment, wound is full thickness and friable. Minimal erythema sounding wound and
drainage is sanguinous. Patient with stage 1 to sacrum. Patient is able to turn self in bed. She is incontinent of urine. Heels intact
Appetite: States good appetite
Pressure redistribution devices in place: Versa Care, heels off-loaded on pillows
Plan: Wound cleaned with saline and non-adherent dressing placed over wound. Awaiting surgical consult. CHRISTOPHE Ramirez updated. Will follow as needed.
Recommend follow up at wound care center upon discharge.
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
[2024-11-08] MEDS: FOLVITE 1 MG PO (13:22)
--- NOTE | 2024-11-08 13:22 | CON.PUL ---
Consultation
Consultation Request
Date/Time Consultation Requested: 11/08/2024
Date/Time Consultation Performed: 11/08/2024
Requesting Provider: Dr. Thomas
Performing Provider: Dr. Nimesh Khan
Reason for Consultation: Acute exacerbation of COPD
Medical History
-
History of Present Illness:
75-year-old woman with past medical history significant for COPD chronically on 3 L supplemental oxygen, follows up with Dr. Roque, known to have recurrent admissions for exacerbations multiple throughout the year. She was recently diagnosed with
systolic heart failure ejection fraction 30 to 40% who presented to the emergency room shortly after being discharged from the hospital for acute episode of shortness of breath. She was discharged from the hospital on 10/22/2024. Reported
significant shortness of breath with minimal efforts even moving to the commode. What prompted her to come to the emergency room.
She did report some wheezing but no significant phlegm production. Her chest x-ray showed clear lungs.
Admitted for possible acute exacerbation of COPD-started on steroids and nebulizers as well as oral antibiotics.
Also diuresed and treated for heart failure.
CT of the chest was obtained 11/08/2024: Showed some abnormalities including a left lower lobe possible airspace disease versus atelectasis. Stable lung nodules.
We were consulted on 11/08/2024 for evaluation.
Does report ongoing coughing which is wet, minimal expectoration of yellow discolored fluid. No fevers. Denies hemoptysis.
Stated that her weight has been stable.
Has not been able to get in our office, has been in the hospital over 200 days.
Denies swallowing problems.
Past Medical History
Past Medical History: Other (See assessment and plan)
Social History
Tobacco: Former Smoker ([id number] history)
Alcohol: None
Drug: None
Living: With Family
Occupational Exposures: Denies
Environmental Exposures: Denies
Family History
Family History: Reviewed & Not Pertinent
Allergies / Home Medications
Allergies
Allergy/AdvReac Type Severity Reaction Status Date / Time
ampicillin Allergy Hives Verified 10/05/24 19:40
coconut Allergy Hives Verified 10/05/24 19:40
mustard Allergy Hives Verified 10/05/24 19:40
Home Medications
�Medication �Instructions �Recorded �Confirmed �Last Taken �Type
albuterol sulfate 90 mcg/actuation 2 puff inhalation R Q4HPRN PRN 12/29/22 11/06/24 11/06/24 History
aerosol inhaler sob/wheezing
bupropion HCl 300 mg 24 hr tablet, 300 mg PO DAILY Depression 07/19/23 11/06/24 11/06/24 History
extended release
budesonide 160 mcg-glycopyr 9 2 inh inhalation R BID 01/18/24 11/06/24 11/06/24 History
mcg-formot 4.8 mcg/actuation HFA Lung/Breathing Issues
inhaler (Breztri Aerosphere)
furosemide 40 mg tablet 20 mg PO DAILY Fluid 02/20/24 11/06/24 11/06/24 History
Retention/Swelling
albuterol sulfate 2.5 mg/3 mL 2.5 mg inhalation R Q4HPRN PRN sob 04/17/24 11/06/24 11/06/24 History
(0.083 %) solution for nebulization
acetaminophen 500 mg tablet 1,000 mg PO BID Pain 06/22/24 11/06/24 11/06/24 History
(Tylenol Extra Strength) 1000 mg
melatonin 5 mg tablet 10 mg PO HSPRN PRN sleep 06/22/24 11/06/24 Unknown History
cyclobenzaprine 5 mg tablet 5 mg PO TIDPRN PRN muscle spasms 08/01/24 11/06/24 Unknown History
guaifenesin 600 mg tablet, 600 mg PO Q12H Lung/breathing 08/01/24 11/06/24 11/06/24 History
extended release 12 hr issues
sertraline 100 mg tablet 100 mg PO DAILY Depression 08/01/24 11/06/2424 History
loratadine 10 mg tablet (Claritin) 10 mg PO DAILY Allergies 10/08/24 11/06/24 11/06/24 History
aspirin 81 mg chewable tablet 81 mg PO DAILY #30 tabs 10/22/24 11/06/24 Unknown Rx
metoprolol succinate 25 mg 25 mg PO HS #30 tabs 10/22/24 11/06/24 Unknown Rx
tablet,extended release 24 hr
oxycodone 5 mg tablet 5 mg PO Q6HPRN PRN severe pain #10 10/22/24 11/06/24 Unknown Rx
tabs
Xanax 1.25 mg PO Q6HPRN PRN anxiety 11/06/24 11/06/24 History
Review of Systems
-
History Source: Patient
All other systems: Negative unless noted
Vitals / Labs / Diagnostic Testing
Vital Signs
Temp Pulse Resp BP Pulse Ox
97.6 F 73 18 130/65 94
11/08/24 11:13 11/08/24 11:16 11/08/24 11:16 11/08/24 11:13 11/08/24 11:16
Lab Data
11/08/24 09:25
11/08/24 09:25
Microbiology
11/07/24 12:14 Leg - Left Wound Culture - Preliminary
11/07/24 12:14 Leg - Left Gram Stain - Preliminary
11/06/24 19:45 Blood/Venous Blood Culture - Preliminary
No Growth in 24 hours- Final report to follow
11/06/24 18:27 Blood/Venous Blood Culture - Preliminary
No Growth in 24 hours- Final report to follow
11/06/24 18:27 Nasal Swab Influenza Types A & B (EDUARD) - Final
Negative for Influenza A & B, NAAT
Negative results must be combined with clinical observations
and patient history.
Nucleic Acid Amplification test (NAAT)performed on the
[employer] platform.
Diagnostic Testing:
Physical Exam
-
HEENT: Normocephalic
Cardiovascular: S1/S2
Respiratory: Wheeze (Mild faint expiratory), Rales (Both bases) and Non-Labored Respirations
GI: Soft and Non Distended
Neurology: Awake, Alert, Oriented and No Motor Deficits
Skin: Warm
General: Comfortable
Assessment
-
74-year-old woman with past medical history of COPD, frequent exacerbations, chronic hypoxemic respiratory failure, heart failure with reduced ejection fraction, anxiety, chronic kidney disease stage III, discharged from the hospital 10/22/2024 for
acute exacerbation of heart failure. At that time discharged to rehab and then to home. This time coming from home with increased shortness of breath with any activity. She is having limited insurance and affordability, also has dietary
indiscretions. Underwent CT of the chest 11/08/2024
Acute respiratory insufficiency/shortness of breath-on baseline 3 L supplemental oxygen.
COPD/asthma overlap with acute exacerbation.
Abnormal CT chest: 1226 2023-6-7 mm lung nodule right upper lobe, 3-4 mm nodule left upper lobe. New 4 mm groundglass nodule right middle lobe. Small amount of irregular airspace consolidation within the posterior left lower lobe atelectasis
versus infectious. Emphysema.
CHFrEF exacerbation
proBNP 14,000
S/P R and L cardiac cath 10/19/24 with mildly increased biventricular pressures
Echocardiogram 10/10/2024: Ejection fraction 30 to 40%. Global hypokinesis. Normal RV size and function. Moderate MR. Mild low-flow low gradient aortic stenosis. Moderate aortic regurgitation. Mild TR. New compared to 04/2024
Chronic kidney disease baseline
Leukocytosis-afebrile
Left calf laceration-surgery recommended local care 11/08/2024
Compression deformities within the thoracic spine, several which are new compared to prior. Multiple subacute anterior rib fractures-on CAT scan 11/08/2024.
DNR
Conditions present prior to admission:
Hospitalized for acute on chronic heart failure exacerbation October 21, 2024
Hospitalized for acute exacerbation 07/2024
Recent hospitalization 01/24/2024-COPD exacerbation
Recent hospitalization 03/19/2024-acute on top of chronic hypoxic respiratory failure CHF and COPD
Recent hospitalization 05/07-CHF, acute on top of chronic back pain, UTI, [place] and COPD
Recent hospitalization-06/22/2024-back pain, chronic hypoxemic respiratory failure, chronic COPD and chronic CHF
Repetitive hospitalizations for COPD exacerbation-December, April, July, August, September 2023
Syncope admission August 2020-found minimally responsive, septic shock, left lower extremity fasciitis requiring mechanical ventilation
s/p extensive surgical debridement and wound VAC for 10 months
COPD/asthma overlap oxygen dependent 2 L-followed by Dr. Roque-maintained on Lina Sexton
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
Active smoker.
Pulmonary nodule-largest 6.7 mm right upper lobe-CT 06/22/2024
Covid illness September 2023
Obstructive sleep apnea/CPAP intolerant.
Chronic heart failure preserved EF.
Moderate mitral regurgitation
Mild aortic stenosis
Moderate aortic regurgitation
Chronic kidney disease stage III.
Anxiety/depression.
Obesity.
Obstructive sleep apnea-previously noncompliant with CPAP-was willing to have repeat PSG and titration.
Sciatica.
Prior lumbar fracture.
Left lower extremity fasciitis.
Hyponatremia.
Renal calculi.
Cataract. Carpal tunnel release. Cholecystectomy 1975. Shoulder surgery 1992.
Assessment and plan:
Respiratory decompensation likely a combination of CHF with reduced EF/valvular disease and advanced COPD-radiographs, echocardiograms, and CAT scan reviewed.
-
From the COPD perspective: Oxygenation baseline
On exam with faint expiratory wheezing, bibasilar crackles. 11/08/2024.
She has a wet cough-states that expectoration is slightly yellow. No hemoptysis.
I agree with transition to prednisone with a slow taper decrease by 10 mg every 72 hours to 10 mg daily until seen in our office.(Will try to limit with osteoporotic fractures)
Continue inhalers-usually on BREZTRI.
Given recurrent symptoms, will transition to oral nebulized therapy: Pulmicort twice a day, DuoNebs 4 times a day.
In the outpatient setting can be transitioned to Brovana and Yupelri if she determines that nebulized therapy has better results.
Continue mucolytics
-
Patient is a DNR-not to be intubated
-
Incentive spirometry encouraged
Acapella encouraged and mucus clearing devices
She is unlikely able to tolerate vest therapy with rib fractures.
Cough effort may be impaired with rib fractures.
-
CT chest noted: Left lower lobe pleural-based airspace disease atelectasis versus pneumonia. Also tiny right middle lobe groundglass opacity. Other findings are stable.
Leukocytosis-afebrile.
Negative procalcitonin.
Cultures reviewed
Influenza negative
Blood cultures negative
will obtain a sputum culture, if able to produce: Frequent admissions to the hospital.
Started on ceftriaxone 11/08/2024. Has been on doxycycline.
If unable to produce a sputum, not unreasonable to complete a total 7 days of antibiotics in this patient with frequent respiratory infections. Difficult to differentiate between atelectasis and pneumonia in this patient. Certainly has been
afebrile and procalcitonin is negative.
Will need outpatient radiographic follow-up.
-
Continue heart failure management
IV diuretics
It is noted that the patient has affordability issues for goal-directed therapy
She also is not that compliant with low-salt diet.
-
Monitor blood sugars
Insulin supplementation as needed
Obstructive sleep apnea-needs to complete further evaluation in the outpatient setting. In the past has not been compliant, used to follow-up in [place].
DVT prophylaxis-on subcu heparin.
Recommend outpatient follow-up with Dr. Wendy Roque or Lisa Riley NP within 2 weeks after discharge. Patient last time seen in our office was in March 2024 despite recurrent admissions.
-
Patient with peripheral eosinophilia, recurrent admissions, frequent steroids may benefit from biologic therapy, prolonged azithromycin course to prevent admissions and exacerbation also possibility. Will be readdressed in the outpatient setting.
-
[2024-11-08] MEDS: VENTOLIN NEBULES INH (15:20)
[2024-11-08] MEDS: DUONEB 3 ML INH ×2 (15:20→20:18)
[2024-11-08] MEDS: PULMICORT 0.5 MG INH (20:18)
[2024-11-08] MEDS: VITAMIN B1 100 MG PO (20:41)
[2024-11-08] MEDS: RISPERDAL 0.25 MG PO (21:37)
[2024-11-08] MEDS: TOPROL XL PO (22:14)
[2024-11-09] VITALS (26 sets, daily range): BP systolic 80–119; BP diastolic 37–74; PULSE 2
--- NOTE | 2024-11-09 08:30 | W.PN.CD ---
Today's Communication / Plan
-
feels a littel better. still with wheezing but less than yesterday.
await pending labs. if renal function stable then continue with diuretic
continue to optimize tx of pulmonary disease as directed by offset printing pressmen and hospitalist
Impression / Plan
-
74F with HFrEF (EF 35-40%), COPD (steroid & O2 dependent), and chronic back pain on palliative care at home ([facility]), presented with shortness of breath.
Primary maintenance manager: Dr. 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
Resp insuff.
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
- wheezing and crackles at bases
continue diuretic and await CT scan
-
Cardiomyopathy, HFrEF,
-Recently identified in October 2024
-cath 10/19/24 without obstructive CAD 9 only mild luminal irregularlties) PCWP 16 and weight 86.4kg on that day.
-Previously HFpEF, new reduction in EF to 35 to 40%. Improved s/p IV diuresis. Given renal dysfunction and relatively normal filling pressures,
-Status post Lasix in the ER.
-Continue Lasix 40 mg IV once a day
-GDMT:
--Entresto started this admit.
--on metoprolol
--MRA on hold - start Entresto first
--SGLT2i not affordable
[place], improving.
-Acute on chronic. Creatinine up to 2.6 on 10/14, now back to baseline 1.2 ( Baseline 1.5-1.8)
-Due to combination of diuresis, ARB initiation, and MRA - restarting Entresto now one at a time.
-Lasix is restarted.
Abnormal troponin, 2/2 nonischemic myocardial injury
Back pain
-This is her main complaint
-Continue home pain control. Followed by palliative.
Valvular heart disease
-Mild to moderate mitral regurgitation
-Mild low gradient aortic stenosis by echo and cath
-Moderate aortic regurgitation
COPD, steroid and oxygen dependent
-Reported trial of increased steroids prior to admission
Former tobacco use, continue cessation recommended
Physical Exam
Vital Signs/Labs
Vital Signs
Temp Pulse Resp BP Pulse Ox
98.1 F 82 20 96/56 97
11/09/24 03:52 11/09/24 03:52 11/09/24 03:52 11/09/24 03:52 11/09/24 03:52
11/08/24 11/09/24 11/10/24
06:59 06:59 06:59
Actual Weight 86.636 kg 82.1 kg
Magnesium 1.9 mg/dl (1.6-2.3) 11/08/24 09:25
11/06/24
18:27
Aoq-M-Sriiabrjeay Pept 91175
LAB Results
11/06/24
18:27
Troponin I 0.027
Physical Exam
Constitutional: No acute distress
Cardiovascular: Rhythm & rate is regular
Respiratory: Wheeze Present
GI: Soft
Neuro/Psych: Alert
Data Reviewed
-
Date of Service: November 09, 2024
Medical Decision Making: Reviewed Test Results
X-Ray/CT/US/MRI/NUC/PET: Report Reviewed by me
Medical Tests (PFT, Pathology etc): Report Reviewed by me
Labs: Labs Reviewed by me
[2024-11-09] MEDS: PULMICORT INH (09:36)
[2024-11-09] MEDS: DUONEB INH (09:36)
[2024-11-09] MEDS: LASIX IV (09:48)
[2024-11-09] MEDS: DELTASONE 40 MG PO (10:38)
[2024-11-09] MEDS: CLARITIN 10 MG PO (10:38)
[2024-11-09] MEDS: ENTRESTO 24 MG/26 MG 1 TAB PO ×2 (10:39→20:24)
[2024-11-09] MEDS: HEPARIN 5000 UNITS SC ×2 (10:39→20:21)
[2024-11-09] MEDS: FOLVITE 1 MG PO (10:39)
[2024-11-09] MEDS: LOW STRENGTH ASPIRIN 81 MG PO (10:40)
[2024-11-09] MEDS: MUCINEX 600 MG PO (10:40)
[2024-11-09] MEDS: THERAGRAN 1 TABLET PO (10:40)
[2024-11-09] MEDS: VITAMIN B1 100 MG PO ×2 (10:41→20:24)
[2024-11-09] MEDS: WELLBUTRIN XL (24 hour extended release) 150 MG PO (10:41)
[2024-11-09] MEDS: VIBRAMYCIN 100 MG PO ×2 (10:41→20:20)
[2024-11-09] MEDS: ZOLOFT 50 MG PO (10:41)
[2024-11-09] MEDS: OSCAL 500 + D PO (11:01)
[2024-11-09] MEDS: ROCEPHIN 1000 MG IV (11:01)
[2024-11-09] MEDS: STERILE WATER FOR INJECTION 10 ML IV ×2 (11:01→14:28)
[2024-11-09] MEDS: FLUSH (NSS) 2 FLUSH IV (11:02)
[2024-11-09] MEDS: DUONEB 3 ML INH ×3 (11:15→19:58)
--- NOTE | 2024-11-09 11:30 | PTCARENOTE ---
Noted that pt is drowsy this am, arousable, confused to place at times, and time. Pt tachypneic, using accessory abdominal muscles, labored. SpO2 90% on 4L of O2. Noted tachycardia to 120s. Pt able to take pills but did not eat anything for
breakfast. Dr. Thomas aware, ABGs ordered and holding Risperdal, will continue to monitor.
[2024-11-09 11:53] LABS: % Basophils 0.3 % (0-2); % Eosinophils 0.1 % (0-6); % Immature Granulocytes 0.9 % (0-0.5); % Lymphocytes 8.5 % (20.5-51.1); % Neutrophils 80.2 % (42.2-75.2); Absolute Immature Granulocytes 0.1 10^3/uL (0-0.05); Absolute Lymphocytes 0.9 10^3/uL (1.2-3.4); Absolute Neutrophils 8.2 10^3/uL (1.4-6.5); Hematocrit 40.4 % (37.0-47.0); Hemoglobin 12.8 g/dL (12.0-16.0); Mean Corp Hgb Conc. 31.7 g/dL (33.0-37.0); Mean Corpuscular Hgb 31.5 pg (27.0-31.0); Mean Corpuscular Volume 99.5 fL (81.0-99.0); Mean Platelet Volume 9.6 fL (7.4-10.4); Nucleated Red Blood Cells % 0.2 %; Platelet Count 339 10^3/uL (130-400); Red Blood Cell Count 4.06 10^6/uL (4.20-5.40); Red Cell Dist. Width 14.5 % (11.5-14.5); White Blood Cell Count 10.3 10^3/uL (4.8-10.8)
--- NOTE | 2024-11-09 12:00 | RR ---
Pt continues to be lethargic, tachypneic, SpO2 90% on 4L, tachycardia. Pt's SBPs 80s-90s. Rectal temp 101.8. Called Rapid Response at this time for further guidance of care.
A Rapid Response was called on this patient, please see Rapid Response form.
[2024-11-09 12:01] LABS: B.E. 8.1 mmol/L; HCO3 33.4 mmol/L (21-28); O2 Saturation % 95.9 % (94-98); PCO2 48 mmHg (32-35); PO2 70 mmHg (83-108); pH 7.45 (7.35-7.45)
[2024-11-09 12:04] LABS: Glucose - Point of Care 128 mg/dl (70-99)
--- NOTE | 2024-11-09 12:08 | W.PN.UPDATE ---
Addendum entered and electronically signed by Emily Thurman MD 11/09/24 15:10:
returned to see patient who at this point is much more awake and alert. has been found to have flu and started on tamiflu. will hold off on risperdal at this point. will have psych look in on her tomorrow. it is possible that just w reductions in
antidep patient's hallucinations might subside
Original Note:
Update Note
Progress Note Update
reviewed chart . patient very lethargic. this is NOT how she was at all yesterday. she was very verbal if not a bit overly so. nursing was caring for her and were considering a rapid which they called . i doubt very much this is secondary to
risperdal but for now will dc this as well as xanax . have also dc'ed flexeril which can be sedating although she did not have either of these today or yesterday. noted wound + for mrsa. will return to see her later this afternoon.
[2024-11-09 12:17] LABS: ALT (SGPT) 19 U/L (0-35); AST (SGOT) 29 U/L (14-36); Albumin 3.5 g/dl (3.5-5.0); Alkaline Phosphatase 102 U/L (38-126); Blood Urea Nitrogen 47 mg/dl (7-17); Calcium 9.1 mg/dl (8.4-10.2); Carbon Dioxide 35 mmol/L (22-30); Chloride 95 mmol/L (98-107); Glucose 106 mg/dl (70-99); Potassium 4.1 mmol/L (3.5-5.1); Sodium 137 mmol/L (135-145); Total Bilirubin 0.2 mg/dl (0.2-1.3); Total Protein 6.1 g/dl (6.3-8.2); eGFR 31.27
[2024-11-09 12:24] LABS: Hematocrit 39.2 % (37.0-47.0); Hemoglobin 12.7 g/dL (12.0-16.0); Mean Corp Hgb Conc. 32.4 g/dL (33.0-37.0); Mean Corpuscular Hgb 31.2 pg (27.0-31.0); Mean Corpuscular Volume 96.3 fL (81.0-99.0); Mean Platelet Volume 9.4 fL (7.4-10.4); Platelet Count 356 10^3/uL (130-400); Red Blood Cell Count 4.07 10^6/uL (4.20-5.40); Red Cell Dist. Width 14.5 % (11.5-14.5); White Blood Cell Count 12.2 10^3/uL (4.8-10.8)
[2024-11-09 12:38] LABS: Lactic Acid 1.7 mmol/L (0.7-2.0)
--- NOTE | 2024-11-09 12:48 | RESPNOTE ---
Respiratory: patient ripped Bilevel mask off x2. Physician at bedside, aware, only had mask on for twenty minutes.
[2024-11-09 13:00] LABS: Hematocrit 40.9 % (37.0-47.0); Hemoglobin 12.9 g/dL (12.0-16.0); Mean Corp Hgb Conc. 31.5 g/dL (33.0-37.0); Mean Corpuscular Hgb 31.1 pg (27.0-31.0); Mean Corpuscular Volume 98.6 fL (81.0-99.0); Mean Platelet Volume 9.6 fL (7.4-10.4); Platelet Count 371 10^3/uL (130-400); Red Blood Cell Count 4.15 10^6/uL (4.20-5.40); Red Cell Dist. Width 14.5 % (11.5-14.5); White Blood Cell Count 13.1 10^3/uL (4.8-10.8)
[2024-11-09] MEDS: TYLENOL/FEVERALL 325 MG RECTAL (13:04)
--- NOTE | 2024-11-09 13:06 | W.PN.HOSP.TC ---
Addendum entered and electronically signed by Biju Thomas MD 11/09/24 13:15:
#Influenza A
tamiflu
check procal - if low - deescalate Abx
Original Note:
Today's Communication/Plan
-
Broaden Abx with new fevers
still looking for source
Lethargy 2/2 fever, no significant CO2 retention
switch to IV steroids
Avoid BZD
Assessment / Plan
Assessment / Plan
75yo F with PMHx of COPD with chronic hypoxic failure on 3L home O2 and current smoker, HFrEF, anxiety, CKD stage 3, recently managed for CHF exacerbation discharged from on 10/22/24 came with worsening SOB and also c/o L reinoso wound. Previously
discharged to rehab, now came from home. Patient is not compliant with diet and also due to insurance issues and hypotension - limited in GDMT selection for her CHF. CT chest showed significant mucus plugging, emphysema and subacute rib Fx.
Developed fever on 11/09/24
A/P:
#Fever
UA, Chest XR, Bcx, COVID and influenza swab
Broaden Abx to Vanco/Cefepime/Doxy
IMU
#Acute on chronic hypoxic respiratory failure 2/2 combined HFrEF and COPD exacerbation (centrilobular emphysema)
#Mild bronchiectasis within the basal aspects of both lower lobes with scattered areas of bronchial impaction within the right lower lobe
#Ischemic CM
Wheezing on admission and proBNP 11094
Taper steroids and cont bronchodilators
Mucinex
Lasix PRN, low salt diet, FR, follow daily kidney function and electrolytes
Cardiology consult: close to euvolemia
S/P R and L cardiac cath 10/19/24 with mildly increased biventricular pressures
Echo 10/10/24: EF 35-40%, global hypokinesis, moderate MR and AR
GDMT limited by hypotension on last admission
wean off O2 to 3L
Pulmonology consult: cont bronchodilators
#Unchanged 6 to 7 mm nodule within the anterior right upper lobe
#Unchanged 5 mm nodule within the posterior left upper lobe adjacent to the fissure
#Ill-defined 3 to 4 mm groundglass nodule within the right middle lobe
pulm eval
can be inflammatory
#Nicotine dependency
counseled on smoking cesation
#exophytic nodule arises from the posterior left upper lobe measuring 15 mm
stable from june 2024
#multiple subacute appearing anterior right rib fractures, new compared to the prior CT.
#multiple compression deformities within the thoracic spine involving T5, T6, T8, T9, T10, and T11
Most likely osteoporotic
Outpatient treatment advised - daughter verbalized understanding. Will follow with PCP
add Oscal
check vit d 0.25
#L reinoso wound
as per patient - started in rehab
Wound care
wound culture
XR: No acute fracture or dislocation. Partially visualized regional joints demonstrate degenerative changes. Anterior reinoso soft tissue defect. No radiopaque foreign bodies. No overt radiographic evidence for osteomyelitis. Chronic appearing
periosteal reaction of the fibula.
GenSx - cont wound care, no suturing
MRSA positive
#Anxiety
#Chronic hallucinations
Psych consult
cont meds
#Essential HTN
#CKD stage 3b
cont home meds
avoid nephrotoxins
#macrocytosis 2/2 folate deficiency
replete
add thiamine
check B12
add multivitamin
DVT ppx hep
Full code
I have spent at least 59min reviewing chart, test results, communication with consultants and direct patient care
Anticipated Discharge: > 48 hours
Subjective/Interval History
-
Date of Service: November 09, 2024
Objective Data
-
Labs:
Laboratory Results
11/09/24 11/09/24 11/09/24
11:21 11:51 12:12
WBC 10.3 12.2 H
Hgb 12.8 12.7
Hct 40.4 39.2
Plt Count 339 356
HCO3 33.4 H
Sodium 137 Cancelled
Potassium 4.1 Cancelled
Chloride 95 L Cancelled
Carbon Dioxide 35 H Cancelled
BUN 47 H Cancelled
Creatinine 1.7 H Cancelled
Glucose 106 H Cancelled
Calcium 9.1 Cancelled
Total Bilirubin 0.2
AST 29
ALT 19
Alkaline Phosphatase 102
11/09/24 11/09/24
12:39 12:44
WBC 13.1 H
Hgb 12.9
Hct 40.9
Plt Count 371
HCO3
Sodium Pending
Potassium Pending
Chloride Pending
Carbon Dioxide Pending
BUN Pending
Creatinine Pending
Glucose Pending
Calcium Pending
Total Bilirubin
AST
ALT
Alkaline Phosphatase
Vital Signs:
Vital Signs
Temp Pulse Resp BP Pulse Ox
101.8 F H 108 40 104/68 92
11/09/24 11:55 11/09/24 12:21 11/09/24 12:06 11/09/24 12:21 11/09/24 12:21
I&O
11/08/24 11/09/24 11/10/24
06:59 06:59 06:59
Intake Total 720 / 720 600 / 600
Output Total 1200 / 1200
Balance -480 / -480 600 / 600
Review of Systems
-
Unable to obtain full review of systems at this time due to: Acuity
History Source: Patient
All other systems: Reviewed and negative
Physical Exam
-
General: Respiratory Distress
HEENT: Moist Mucous Membranes
Respiratory: Decreased Breath Sounds; Negative Wheezes
Cardiac: Regular Rhythm
GI: Soft, Nontender and Nondistended
Musculoskeletal: No Clubbing, No Cyanosis and No Edema
Neuro: Other (lethargic but easily arousable)
Psych: Calm and Confused
[2024-11-09 13:13] LABS: COVID-19 Antigen Negative (Negative)
[2024-11-09 13:16] LABS: Blood Urea Nitrogen 50 mg/dl (7-17); Calcium 9.3 mg/dl (8.4-10.2); Carbon Dioxide 32 mmol/L (22-30); Chloride 96 mmol/L (98-107); Estimated Creatinine Clearance 31 ml/min; Glucose 114 mg/dl (70-99); Potassium 4.2 mmol/L (3.5-5.1); Sodium 137 mmol/L (135-145); eGFR 33.63
--- NOTE | 2024-11-09 13:18 | PHA.VAN.IN ---
Assessment
- Assessment
Renal Function: Appears elevated from baseline
Maximum Temperature: 101.8
Concomitant Antimicrobials: cefepime 2g q12h
Plan
- Plan
Initial / Loading Dose: vancomycin 2000mg x 1
Maintenance Regimen: dose by level
Monitoring: random level ordered for 11.10 @ 06:00
Pharmacokinetics Vancomycin I
- -
Patient Age: 74
Patient Sex: Female
Vancomycin Day #: 1
Indication: Other
Pertinent Antimicrobial Allergies:
none
Height / Weight:
Height 5 ft 8 in
Actual Weight 82.1 kg
IBW in k.9 kg
Adjusted BW in k.2 kg
Pertinent Past Medical History: COPD, CKD
- Vital Signs / Lab Results
Temp Pulse Resp BP Pulse Ox
101.8 F H 108 40 104/68 92
11/09/24 11:55 11/09/24 12:21 11/09/24 12:06 11/09/24 12:21 11/09/24 12:21
Lab Results - Hematology
11/06/24 11/08/24 11/09/24
18:27 09:25 11:21
WBC 12.7 H 11.6 H 10.3
11/09/24 11/09/24
12:12 12:44
WBC 12.2 H 13.1 H
Lab Results - Chemistry
11/06/24 11/07/24 11/08/24
18:27 06:50 09:25
BUN 20 H 22 H 31 H
Creatinine 1.2 H 1.2 H 1.3 H
Estimated Creat Clear
Albumin 3.9 3.7
11/09/24 11/09/24 11/09/24
11:21 12:12 12:39
BUN 47 H Cancelled 50 H
Creatinine 1.7 H Cancelled 1.6 H
Estimated Creat Clear Cancelled 31
Albumin 3.5
11/09/24
12:12
Lactic Acid 1.7
Microbiology Results
11/09/24 12:46 Influenza Types A & B (EDUARD) - Final
Nasal Swab Influenza A Positive, NAAT
11/07/24 12:14 Wound Culture - Preliminary
Leg - Left Staph aureus MRSA
Gram Stain - Preliminary
11/06/24 19:45 Blood Culture - Preliminary
Blood/Venous No Growth in 48 hours- Final report to follow
11/06/24 18:27 Blood Culture - Preliminary
Blood/Venous No Growth in 48 hours- Final report to follow
[2024-11-09 13:20] LABS: Troponin I 0.016 ng/ml
[2024-11-09] MEDS: NSS 250 IV (13:23)
--- NOTE | 2024-11-09 13:26 | PTCARENOTE ---
Completed straight cath per orders to obtain UA with reflex to culture. Pt tolerated without difficulty. 100 ml of yellow urine drained with straight cath.
[2024-11-09 13:43] LABS: Urine Albumin Trace (Neg - Trace); Urine Bilirubin Negative (Negative); Urine Character Clear (Clear); Urine Color Yellow; Urine Glucose Negative (Negative); Urine Ketone Negative (Negative); Urine Leukocyte Negative (Negative); Urine Nitrite Negative (Negative); Urine Occult Blood Negative (Negative); Urine Urobilinogen Negative (Neg - 1+)
--- NOTE | 2024-11-09 13:45 | PTCARENOTE ---
Provided report to Ali in IMU. Pt transferred to rm [id number] at this time with Nasir kelley IV, chart.
--- NOTE | 2024-11-09 13:49 | CM ---
CM following for discharge planning. SNF recommended at discharge.
Flory was a rapid response and being transferred to IMU today. +flu on 11/09/2024.
[2024-11-09 13:50] LABS: NT-proBNP 2860 pg/ml
--- NOTE | 2024-11-09 13:56 | W.PN.PUL3 ---
Today's Communication / Plan
-
Agree with cefepime/doxycycline-prior history of Pseudomonas
Tamiflu for newly positive influenza A
IV corticosteroids, hopefully rapid taper as the patient has osteoporotic fractures
Nebulizers with DuoNebs and budesonide
IV diuretics as able
Oxygen supplementation at baseline
Secretion clearance interventions
Will follow
Assessment
-
74-year-old woman with past medical history of COPD, frequent exacerbations, chronic hypoxemic respiratory failure, heart failure with reduced ejection fraction, anxiety, chronic kidney disease stage III, discharged from the hospital 10/22/2024 for
acute exacerbation of heart failure. At that time discharged to rehab and then to home. This time coming from home with increased shortness of breath with any activity. She is having limited insurance and affordability, also has dietary
indiscretions. Underwent CT of the chest 11/08/2024
Acute respiratory insufficiency/shortness of breath-on baseline 3 L supplemental oxygen.
COPD/asthma overlap with acute exacerbation.
Abnormal CT chest: 1226 2023-6-7 mm lung nodule right upper lobe, 3-4 mm nodule left upper lobe. New 4 mm groundglass nodule right middle lobe. Small amount of irregular airspace consolidation within the posterior left lower lobe atelectasis
versus infectious. Emphysema.
Fever 11/09/2024 influenza A+ 11/09/2024
CHFrEF exacerbation
proBNP 14,000
S/P R and L cardiac cath 10/19/24 with mildly increased biventricular pressures
Echocardiogram 10/10/2024: Ejection fraction 30 to 40%. Global hypokinesis. Normal RV size and function. Moderate MR. Mild low-flow low gradient aortic stenosis. Moderate aortic regurgitation. Mild TR. New compared to 04/2024
Chronic kidney disease baseline
Leukocytosis-afebrile
Left calf laceration-surgery recommended local care 11/08/2024
Compression deformities within the thoracic spine, several which are new compared to prior. Multiple subacute anterior rib fractures-on CAT scan 11/08/2024.
DNR
Conditions present prior to admission:
Hospitalized for acute on chronic heart failure exacerbation October 21, 2024
Hospitalized for acute exacerbation 07/2024
Recent hospitalization 01/24/2024-COPD exacerbation
Recent hospitalization 03/19/2024-acute on top of chronic hypoxic respiratory failure CHF and COPD
Recent hospitalization 05/07-CHF, acute on top of chronic back pain, UTI, [place] and COPD
Recent hospitalization-06/22/2024-back pain, chronic hypoxemic respiratory failure, chronic COPD and chronic CHF
Repetitive hospitalizations for COPD exacerbation-December, April, July, August, September 2023
Syncope admission August 2020-found minimally responsive, septic shock, left lower extremity fasciitis requiring mechanical ventilation
s/p extensive surgical debridement and wound VAC for 10 months
COPD/asthma overlap oxygen dependent 2 L-followed by Dr. Roque-maintained on Lina Sexton
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
Active smoker.
Pulmonary nodule-largest 6.7 mm right upper lobe-CT 06/22/2024
Covid illness September 2023
Obstructive sleep apnea/CPAP intolerant.
Chronic heart failure preserved EF.
Moderate mitral regurgitation
Mild aortic stenosis
Moderate aortic regurgitation
Chronic kidney disease stage III.
Anxiety/depression.
Obesity.
Obstructive sleep apnea-previously noncompliant with CPAP-was willing to have repeat PSG and titration.
Sciatica.
Prior lumbar fracture.
Left lower extremity fasciitis.
Hyponatremia.
Renal calculi.
Cataract. Carpal tunnel release. Cholecystectomy 1975. Shoulder surgery 1992.
Assessment and plan:
Respiratory decompensation likely a combination of CHF with reduced EF/valvular disease and advanced COPD-radiographs, echocardiograms, and CAT scan reviewed.
-
From the COPD perspective: Oxygenation baseline
On exam with faint expiratory wheezing, bibasilar crackles.
She has a wet cough-states that expectoration is slightly yellow. No hemoptysis.
Initially on prednisone, back to IV corticosteroids 11/09/2024 due to fevers and feeling more lethargic.(Will try to limit with osteoporotic fractures)-hopefully a rapid taper.
Hold inhalers-usually on BREZTRI.
Given recurrent symptoms, will transition to oral nebulized therapy: Pulmicort twice a day, DuoNebs 4 times a day.
In the outpatient setting can be transitioned to Bronataliyaa and Dano if she determines that nebulized therapy has better results.
Continue mucolytics
-
Repeat influenza testing positive due to new fevers-Tamiflu 5 days.
Respiratory isolation per protocol.
-
Patient is a DNR-not to be intubated
-
Incentive spirometry encouraged
Acapella encouraged and mucus clearing devices
She is unlikely able to tolerate vest therapy with rib fractures.
Cough effort may be impaired with rib fractures.
-
CT chest noted: Left lower lobe pleural-based airspace disease atelectasis versus pneumonia. Also tiny right middle lobe groundglass opacity. Other findings are stable.
Leukocytosis-afebrile.
Negative procalcitonin.
Cultures reviewed
Initial influenza negative, repeat influenza 11/09/2024 due to fevers positive.
Blood cultures negative
sputum culture pending: History of Pseudomonas in the sputum.
-
Initially ceftriaxone/doxycycline 11/08/2024. With new fevers up to 101 degrees 11/09/2024-increase to cefepime.
Also oseltamavir started.
Will follow closely, low threshold to discontinue antibiotics in the next 24 hours. Hopefully can obtain a sputum.
Has been afebrile and procalcitonin is negative.
Will need outpatient radiographic follow-up.
-
Continue heart failure management
IV diuretics
It is noted that the patient has affordability issues for goal-directed therapy
She also is not that compliant with low-salt diet.
-
Monitor blood sugars
Insulin supplementation as needed
Obstructive sleep apnea-needs to complete further evaluation in the outpatient setting. In the past has not been compliant, used to follow-up in [place].
DVT prophylaxis-on subcu heparin.
Recommend outpatient follow-up with Dr. Wendy Roque or Lisa Riley [facility] within 2 weeks after discharge. Patient last time seen in our office was in March 2024 despite recurrent admissions.
-
Patient with peripheral eosinophilia, recurrent admissions, frequent steroids may benefit from biologic therapy, prolonged azithromycin course to prevent admissions and exacerbation also possibility. Will be readdressed in the outpatient setting.
-
Subjective Data
-
Date of Service:
Date of Service: November 09, 2024
Chief Complaint: Pulmonary Follow Up (Acute exacerbation of COPD/heart failure)
Subjective:
Continue to have a white cough
Able to intermittently expectorating
Denies hemoptysis.
Review of Systems
General: Fever (n)
Cardiopulmonary: Dyspnea, Dyspnea on Exertion, Cough and Sputum Production
Objective Data
Data Reviewed
Vital Signs / I&O / Oxygen:
Vital Signs
Temp Pulse Resp BP Pulse Ox
101.8 F H 108 40 104/68 92
11/09/24 11:55 11/09/24 12:21 11/09/24 12:06 11/09/24 12:21 11/09/24 12:21
Intake and Output
11/08/24 11/09/24 11/10/24
06:59 06:59 06:59
Intake Total 720 / 720 600 / 600
Output Total 1200 / 1200 100 / 100
Balance -480 / -480 600 / 600 -100 / -100
SaO2 92
Nasal Cannula flow liters per 4
minute
Labs/Micro/Reports
Lab Data
11/09/24 12:44
11/09/24 12:39
Laboratory Results
11/09/24
11:51
pH 7.45
pCO2 48 H
pO2 70 L
HCO3 33.4 H
O2 Delivery Level
Microbiology
11/09/24 12:46 Nasal Swab Influenza Types A & B (EDUARD) - Final
Influenza A Positive, NAAT
11/07/24 12:14 Leg - Left Wound Culture - Preliminary
Staph aureus MRSA
11/07/24 12:14 Leg - Left Gram Stain - Preliminary
11/06/24 19:45 Blood/Venous Blood Culture - Preliminary
No Growth in 48 hours- Final report to follow
11/06/24 18:27 Blood/Venous Blood Culture - Preliminary
No Growth in 48 hours- Final report to follow
11/06/24 18:27 Nasal Swab Influenza Types A & B (EDUARD) - Final
Negative for Influenza A & B, NAAT
Negative results must be combined with clinical observations
and patient history.
Nucleic Acid Amplification test (NAAT)performed on the
[employer] platform.
[2024-11-09] MEDS: TAMIFLU 75 MG PO (14:28)
[2024-11-09] MEDS: VANCOCIN 540 MG IV (14:28)
[2024-11-09] MEDS: MAXIPIME 2000 MG IV (14:28)
[2024-11-09] MEDS: SOLU-MEDROL PF 40 MG IV ×2 (14:29→23:06)
--- NOTE | 2024-11-09 16:23 | PTCARENOTE ---
assumed care of pt at 14:15. Pt refusing bipap, SaO2 92% on 4LNC. RR 20-30. Drowsy/lethargic but arousable. Blood cx drawn prior to patient arriving here. Loading dose of vanco started. Temp 98.2 BP 88/56 manual @14:55. Repeat BP @15:00 91/54. BP
@16:00 102/60. Will continue to monitor.
[2024-11-09] MEDS: PULMICORT 0.5 MG INH (19:58)
[2024-11-09] MEDS: TAMIFLU 30 MG PO (20:21)
[2024-11-09] MEDS: MUCINEX PO (20:28)
[2024-11-09] MEDS: TOPROL XL PO (22:58)
[2024-11-10] VITALS (11 sets, daily range): BP systolic 100–121; BP diastolic 56–73; BMI 26.3
[2024-11-10] MEDS: MAXIPIME 2000 MG IV ×2 (04:39→13:39)
[2024-11-10] MEDS: STERILE WATER FOR INJECTION 10 ML IV ×2 (04:39→13:39)
[2024-11-10] MEDS: SOLU-MEDROL PF 40 MG IV ×2 (04:59→18:01)
[2024-11-10 05:15] LABS: % Basophils 0.2 % (0-2); % Immature Granulocytes 0.8 % (0-0.5); % Lymphocytes 6.7 % (20.5-51.1); % Monocytes 4.2 % (1.7-9.3); % Neutrophils 88.1 % (42.2-75.2); Absolute Immature Granulocytes 0.1 10^3/uL (0-0.05); Absolute Lymphocytes 0.4 10^3/uL (1.2-3.4); Absolute Monocytes 0.3 10^3/uL (0.1-0.6); Absolute Neutrophils 5.4 10^3/uL (1.4-6.5); Hematocrit 37.2 % (37.0-47.0); Hemoglobin 11.6 g/dL (12.0-16.0); Mean Corp Hgb Conc. 31.2 g/dL (33.0-37.0); Mean Corpuscular Volume 99.5 fL (81.0-99.0); Mean Platelet Volume 9.5 fL (7.4-10.4); Nucleated Red Blood Cells % 0 %; Platelet Count 302 10^3/uL (130-400); Red Blood Cell Count 3.74 10^6/uL (4.20-5.40); Red Cell Dist. Width 14.5 % (11.5-14.5); White Blood Cell Count 6.2 10^3/uL (4.8-10.8)
[2024-11-10 05:35] LABS: Vancomycin Random 15.8 ug/ml
[2024-11-10 05:36] LABS: ALT (SGPT) 22 U/L (0-35); AST (SGOT) 32 U/L (14-36); Albumin 3.2 g/dl (3.5-5.0); Alkaline Phosphatase 87 U/L (38-126); Blood Urea Nitrogen 51 mg/dl (7-17); Calcium 8.8 mg/dl (8.4-10.2); Carbon Dioxide 27 mmol/L (22-30); Chloride 105 mmol/L (98-107); Estimated Creatinine Clearance 38 ml/min; Glucose 139 mg/dl (70-99); Potassium 4.3 mmol/L (3.5-5.1); Sodium 140 mmol/L (135-145); Total Bilirubin 0.2 mg/dl (0.2-1.3); Total Protein 5.9 g/dl (6.3-8.2); eGFR 43.15
[2024-11-10 06:03] LABS: Procalcitonin 0.11 ng/ml (0.0-0.25)
[2024-11-10] MEDS: DUONEB 3 ML INH ×4 (07:18→21:13)
[2024-11-10] MEDS: PULMICORT 0.5 MG INH ×2 (07:18→21:13)
[2024-11-10] MEDS: ZOLOFT 50 MG PO (07:47)
[2024-11-10] MEDS: WELLBUTRIN XL (24 hour extended release) 150 MG PO (07:47)
[2024-11-10] MEDS: LOW STRENGTH ASPIRIN 81 MG PO (07:47)
[2024-11-10] MEDS: HEPARIN 5000 UNITS SC ×2 (07:47→21:18)
[2024-11-10] MEDS: MUCINEX 600 MG PO ×2 (07:47→21:18)
[2024-11-10] MEDS: FOLVITE 1 MG PO (07:47)
[2024-11-10] MEDS: ENTRESTO 24 MG/26 MG 1 TAB PO ×2 (07:47→21:34)
[2024-11-10] MEDS: VITAMIN B1 100 MG PO ×2 (07:47→21:19)
[2024-11-10] MEDS: THERAGRAN 1 TABLET PO (07:48)
[2024-11-10] MEDS: VIBRAMYCIN 100 MG PO ×2 (07:48→21:17)
[2024-11-10] MEDS: CLARITIN 10 MG PO (07:48)
[2024-11-10] MEDS: TAMIFLU 30 MG PO ×2 (07:49→22:03)
[2024-11-10] MEDS: OSCAL 500 + D 1000 MG PO (07:56)
--- NOTE | 2024-11-10 09:10 | W.PN.HOSP.TC ---
Today's Communication/Plan
-
taper down steroids
stop Vanco
move to F
labs without significant abnormalities - repeat on Mon
Assessment / Plan
Assessment / Plan
75yo F with PMHx of COPD with chronic hypoxic failure on 3L home O2 and current smoker, HFrEF, anxiety, CKD stage 3, recently managed for CHF exacerbation discharged from on 10/22/24 came with worsening SOB and also c/o L reinoso wound. Previously
discharged to rehab, now came from home. Patient is not compliant with diet and also due to insurance issues and hypotension - limited in GDMT selection for her CHF. CT chest showed significant mucus plugging, emphysema and subacute rib Fx.
Developed fever on 11/09/24 2/2 influenza A also concern for pneumonia, as agreed with Pulm - Cefepime/Doxy. Also MRSA on LLE wound - reasonable doxy for 10 days
A/P:
#Influenza A
#Unchanged 6 to 7 mm nodule within the anterior right upper lobe
#Unchanged 5 mm nodule within the posterior left upper lobe adjacent to the fissure
#Ill-defined 3 to 4 mm groundglass nodule within the right middle lobe
pulm eval
can be inflammatory
Broaden Abx to Cefepime/Doxy
#Acute on chronic hypoxic respiratory failure 2/2 combined HFrEF and COPD exacerbation (centrilobular emphysema)
#Mild bronchiectasis within the basal aspects of both lower lobes with scattered areas of bronchial impaction within the right lower lobe
#Ischemic CM
Wheezing on admission and proBNP [id number]
Taper steroids and cont bronchodilators
Mucinex
Lasix PRN, low salt diet, FR, follow daily kidney function and electrolytes
Cardiology consult: close to euvolemia
S/P R and L cardiac cath 10/19/24 with mildly increased biventricular pressures
Echo 10/10/24: EF 35-40%, global hypokinesis, moderate MR and AR
GDMT limited by hypotension on last admission
wean off O2 to 3L
Pulmonology consult: cont bronchodilators
#Unchanged 6 to 7 mm nodule within the anterior right upper lobe
#Unchanged 5 mm nodule within the posterior left upper lobe adjacent to the fissure
#Ill-defined 3 to 4 mm groundglass nodule within the right middle lobe
pulm eval
can be inflammatory
#Nicotine dependency
counseled on smoking cessation
#exophytic nodule arises from the posterior left upper lobe measuring 15 mm
stable from june 2024
#multiple subacute appearing anterior right rib fractures, new compared to the prior CT.
#multiple compression deformities within the thoracic spine involving T5, T6, T8, T9, T10, and T11
Most likely osteoporotic
Outpatient treatment advised - daughter verbalized understanding. Will follow with PCP
add Oscal
check vit d 0.25
#L reinoso wound
as per patient - started in rehab
Wound care
wound culture
XR: No acute fracture or dislocation. Partially visualized regional joints demonstrate degenerative changes. Anterior reinoso soft tissue defect. No radiopaque foreign bodies. No overt radiographic evidence for osteomyelitis. Chronic appearing
periosteal reaction of the fibula.
GenSx - cont wound care, no suturing
MRSA in wound Cx sensitive to doxy - reasonable to complete 10 days, however no significant signs of infection
#Anxiety
#Chronic hallucinations
Psych consult
cont meds
#Essential HTN
#CKD stage 3b
cont home meds
avoid nephrotoxins
#macrocytosis 2/2 folate deficiency
replete
add thiamine
check B12
add multivitamin
DVT ppx hep
Full code
I have spent at least 57min reviewing chart, test results, communication with consultants and direct patient care
Anticipated Discharge: > 48 hours
Subjective/Interval History
-
Date of Service: November 10, 2024
Objective Data
-
Labs:
Laboratory Results
11/10/24
05:01
WBC 6.2
Hgb 11.6 L
Hct 37.2
Plt Count 302
Sodium 140
Potassium 4.3
Chloride 105
Carbon Dioxide 27
BUN 51 H
Creatinine 1.3 H
Glucose 139 H
Calcium 8.8
Total Bilirubin 0.2
AST 32
ALT 22
Alkaline Phosphatase 87
Vital Signs:
Vital Signs
Temp Pulse Resp BP Pulse Ox
97.7 F 99 20 100/73 97
11/10/24 04:25 11/10/24 07:47 11/10/24 07:21 11/10/24 07:47 11/10/24 07:21
I&O
11/09/24 11/10/24 11/11/24
06:59 06:59 06:59
Intake Total 600 / 600
Output Total 100 / 100
Balance 600 / 600 -100 / -100
Review of Systems
-
History Source: Patient
All other systems: Reviewed and negative
Physical Exam
-
General: No Apparent Distress
HEENT: Normocephalic
Respiratory: Wheezes
Cardiac: Regular Rhythm
GI: Soft, Nontender and Nondistended
Skin: Warm
Neuro: Awake, Alert, Oriented and AO x 3
Psych: Calm
--- NOTE | 2024-11-10 12:28 | PTCARENOTE ---
Assumed care of patient this morning. She is only oriented to herself and the date. She has mistaken this RN for multiple different family members early this morning. Her daughter arrived around 11:00 and was able to re-orient her a little and the
patient apologized for mistaken me for family members. The patient also spoke with her grandson who advised her she should try the BiPAP. Pt agreeing because she 'made a promise' to him. RT made aware but advised it is not indicated at this time as
morning CO2 was WNL, she is awake and conversant. Also, patient's daughter reporting she will not wear a full mask and will only tolerate a nasal one.
Pt's daughter explaining she has been trying to get her to a sleep study but there have been multiple limitations. RT spoke with patient's daughter about possibly getting her approved for a machine while she is inpatient.
Assessment, care and VS as charted.
--- NOTE | 2024-11-10 12:31 | W.PN.UPDATE ---
Update Note
Progress Note Update
Patient is now very verbal and at times hard to interrupt. States she feels better and now agrees to use supplemental oxygen at home. Denies depression, hopelessness, anhedonia or suicidal thoughts. Appetite stable, sleep varies.
From the cognitive standpoint she has poor immediate recall but otherwise is intact.
Will continue current treatment for now.
--- NOTE | 2024-11-10 14:55 | W.PN.CD ---
Today's Communication / Plan
-
Hold lasix today check weight in am
Impression / Plan
-
74F with HFrEF (EF 35-40%), COPD (steroid & O2 dependent), and chronic back pain on palliative care at home ([facility]), presented with shortness of breath.
Primary admittance attendant: Dr. 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
Resp insuff.
patient with SPARMAKER O2 dependent and nonischmeic CM
- wheezing and crackles at bases
continue diuretic and await CT scan
-
Cardiomyopathy, HFrEF,
-Recently identified in October 2024
-cath 10/19/24 without obstructive CAD 9 only mild luminal irregularlties) PCWP 16 and weight 86.4kg on that day.
-Previously HFpEF, new reduction in EF to 35 to 40%. Improved s/p IV diuresis. Given renal dysfunction and relatively normal filling pressures,
-Status post Lasix in the ER.
-Hold Lasix 40 mg IV once a day, weight is lowest its been
-GDMT:
--Entresto started this admit.
--on metoprolol
--MRA on hold - start Entresto first
--SGLT2i not affordable
[place], improving. 1.3 todya
-Acute on chronic. Creatinine up to 2.6 on 10/14, now back to baseline 1.2 ( Baseline 1.5-1.8)
-Due to combination of diuresis, ARB initiation, and MRA - restarting Entresto now one at a time.
Abnormal troponin, 2/2 nonischemic myocardial injury
Back pain
-This is her main complaint
-Continue home pain control. Followed by palliative.
Valvular heart disease
-Mild to moderate mitral regurgitation
-Mild low gradient aortic stenosis by echo and cath
-Moderate aortic regurgitation
COPD, steroid and oxygen dependent
-Reported trial of increased steroids prior to admission
Former tobacco use, continue cessation recommended
Subjective: Breathing improved hold lasix today check weight in AM
Physical Exam
Vital Signs/Labs
Vital Signs
Temp Pulse Resp BP Pulse Ox
98.0 F 108 18 107/73 92
11/10/24 11:15 11/10/24 12:11 11/10/24 12:11 11/10/24 12:18 11/10/24 14:00
11/09/24 11/10/24 11/11/24
06:59 06:59 06:59
Actual Weight 181 lb 173 lb 1.006 oz
11/10/24 05:01
11/10/24 05:01
Magnesium 1.9 mg/dl (1.6-2.3) 11/08/24 09:25
11/06/24 11/09/24
18:27 12:39
Vxh-C-[id number] Pept [id number]
LAB Results
11/09/24 11/09/24 11/09/24
12:12 12:35 12:39
Troponin I Cancelled Cancelled 0.016
Physical Exam
Constitutional: No acute distress and Comfortable
EENT: Anicteric
Cardiovascular: Rhythm & rate is regular and Other (distant )
Respiratory: Other (poor air movement b/l )
GI: Soft
Neuro/Psych: AO x 3
Data Reviewed
-
Date of Service: November 10, 2024
EKG: Tracing Personally Visualized and interpreted (sinus tach)
Echo: Report Reviewed by me
Labs: Labs Reviewed by me
--- NOTE | 2024-11-10 18:06 | W.PN.PUL3 ---
Today's Communication / Plan
-
Continue with antibiotics
Continue Tamiflu
Wean steroids
ABG in a.m.
Assessment
-
74-year-old woman with past medical history of COPD, frequent exacerbations, chronic hypoxemic respiratory failure, heart failure with reduced ejection fraction, anxiety, chronic kidney disease stage III, discharged from the hospital 10/22/2024 for
acute exacerbation of heart failure. At that time discharged to rehab and then to home. This time coming from home with increased shortness of breath with any activity. She is having limited insurance and affordability, also has dietary
indiscretions. Underwent CT of the chest 11/08/2024
Acute respiratory insufficiency/shortness of breath-on baseline 3 L supplemental oxygen.
COPD/asthma overlap with acute exacerbation.
Abnormal CT chest: 1226 2023-6-7 mm lung nodule right upper lobe, 3-4 mm nodule left upper lobe. New 4 mm groundglass nodule right middle lobe. Small amount of irregular airspace consolidation within the posterior left lower lobe atelectasis
versus infectious. Emphysema.
Fever 11/09/2024 influenza A+ 11/09/2024
CHFrEF exacerbation
proBNP 14,000
S/P R and L cardiac cath 10/19/24 with mildly increased biventricular pressures
Echocardiogram 10/10/2024: Ejection fraction 30 to 40%. Global hypokinesis. Normal RV size and function. Moderate MR. Mild low-flow low gradient aortic stenosis. Moderate aortic regurgitation. Mild TR. New compared to 04/2024
Chronic kidney disease baseline
Leukocytosis-afebrile
Left calf laceration-surgery recommended local care 11/08/2024
Compression deformities within the thoracic spine, several which are new compared to prior. Multiple subacute anterior rib fractures-on CAT scan 11/08/2024.
DNR
Conditions present prior to admission:
Hospitalized for acute on chronic heart failure exacerbation October 21, 2024
Hospitalized for acute exacerbation 07/2024
Recent hospitalization 01/24/2024-COPD exacerbation
Recent hospitalization 03/19/2024-acute on top of chronic hypoxic respiratory failure CHF and COPD
Recent hospitalization 05/07-CHF, acute on top of chronic back pain, UTI, [place] and COPD
Recent hospitalization-06/22/2024-back pain, chronic hypoxemic respiratory failure, chronic COPD and chronic CHF
Repetitive hospitalizations for COPD exacerbation-December, April, July, August, September 2023
Syncope admission August 2020-found minimally responsive, septic shock, left lower extremity fasciitis requiring mechanical ventilation
s/p extensive surgical debridement and wound VAC for 10 months
COPD/asthma overlap oxygen dependent 2 L-followed by Dr. Roque-maintained on DuoNebs, Breztri
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
Active smoker.
Pulmonary nodule-largest 6.7 mm right upper lobe-CT 06/22/2024
Covid illness September 2023
Obstructive sleep apnea/CPAP intolerant.
Chronic heart failure preserved EF.
Moderate mitral regurgitation
Mild aortic stenosis
Moderate aortic regurgitation
Chronic kidney disease stage III.
Anxiety/depression.
Obesity.
Obstructive sleep apnea-previously noncompliant with CPAP-was willing to have repeat PSG and titration.
Sciatica.
Prior lumbar fracture.
Left lower extremity fasciitis.
Hyponatremia.
Renal calculi.
Cataract. Carpal tunnel release. Cholecystectomy 1975. Shoulder surgery 1992.
Assessment and plan:
Overall, patient appears to be improved objectively and subjectively
Wheezing has improved
For now we will continue with weaning of steroids
Remains on antibiotics
Suspect multifactorial causes
Respiratory decompensation likely a combination of CHF with reduced EF/valvular disease and advanced COPD-radiographs, echocardiograms, and CAT scan reviewed.
-
Initially on prednisone, back to IV corticosteroids 11/09/2024 due to fevers and feeling more lethargic.(Will try to limit with osteoporotic fractures)-hopefully a rapid taper.
Hold inhalers-usually on BREZTRI.
Given recurrent symptoms, will transition to oral nebulized therapy: Pulmicort twice a day, DuoNebs 4 times a day.
In the outpatient setting can be transitioned to Maco and Dano if she determines that nebulized therapy has better results.
Continue mucolytics
-
Repeat influenza testing positive due to new fevers-Tamiflu 5 days.
Respiratory isolation per protocol.
-
Patient is a DNR-not to be intubated
-
Incentive spirometry encouraged
Acapella encouraged and mucus clearing devices
She is unlikely able to tolerate vest therapy with rib fractures.
Cough effort may be impaired with rib fractures.
-
CT chest noted: Left lower lobe pleural-based airspace disease atelectasis versus pneumonia. Also tiny right middle lobe groundglass opacity. Other findings are stable.
Leukocytosis-afebrile.
Negative procalcitonin.
Cultures reviewed
Initial influenza negative, repeat influenza 11/09/2024 due to fevers positive.
Blood cultures negative
sputum culture pending: History of Pseudomonas in the sputum.
-
Initially ceftriaxone/doxycycline 11/08/2024. With new fevers up to 101 degrees 11/09/2024-increase to cefepime.
Also oseltamavir started.
Will follow closely, low threshold to discontinue antibiotics in the next 24 hours. Hopefully can obtain a sputum.
Has been afebrile and procalcitonin is negative.
Will need outpatient radiographic follow-up.
-
Continue heart failure management
IV diuretics
It is noted that the patient has affordability issues for goal-directed therapy
She also is not that compliant with low-salt diet.
Check ABG in a.m. on room air
Obstructive sleep apnea-needs to complete further evaluation in the outpatient setting. In the past has not been compliant, used to follow-up in [place].
-
Monitor blood sugars
Insulin supplementation as needed
DVT prophylaxis-on subcu heparin.
Recommend outpatient follow-up with Dr. Wendy Roque or Lisa Riley NP within 2 weeks after discharge. Patient last time seen in our office was in March 2024 despite recurrent admissions.
-
Patient with peripheral eosinophilia, recurrent admissions, frequent steroids may benefit from biologic therapy, prolonged azithromycin course to prevent admissions and exacerbation also possibility. Will be readdressed in the outpatient setting.
-
Subjective Data
-
Date of Service:
Date of Service: November 10, 2024
Chief Complaint: Pulmonary Follow Up (Acute exacerbation of COPD/heart failure)
Subjective:
Patient seen earlier today. Late entry. Overall, patient feels improved. Denies chest pain, shortness of breath, nausea. Mild cough noted
Objective Data
Data Reviewed
Vital Signs / I&O / Oxygen:
Vital Signs
Temp Pulse Resp BP Pulse Ox
98.0 F 105 18 102/58 94
11/10/24 15:22 11/10/24 15:54 11/10/24 15:54 11/10/24 15:22 11/10/24 15:54
Intake and Output
11/09/24 11/10/24 11/11/24
06:59 06:59 06:59
Intake Total 600 / 600 1000 / 1000
Output Total 100 / 100
Balance 600 / 600 -100 / -100 1000 / 1000
SaO2 94
Nasal Cannula flow liters per 4
minute
Physical Exam
General: Comfortable
HEENT: Normocephalic and Anicteric
Cardiovascular: S1-S2, Regular Rhythm and Murmur (n)
Respiratory: Wheeze (n), Crackles (n), Rhonchi (n) and Non-Labored Respirations
GI: Soft, Non Distended and Non Tender
Neurology: Awake and Alert
Skin: Good Color
Labs/Micro/Reports
Lab Data
11/10/24 05:01
11/10/24 05:01
Microbiology
11/09/24 14:30 Nose MRSA Screen - Preliminary
Culture in Progress
11/09/24 12:59 Blood/Venous Blood Culture - Preliminary
No Growth in 24 hours- Final report to follow
11/09/24 12:38 Blood/Venous Blood Culture - Preliminary
No Growth in 24 hours- Final report to follow
11/07/24 12:14 Leg - Left Wound Culture - Final
Staph aureus MRSA
11/07/24 12:14 Leg - Left Gram Stain - Final
11/06/24 19:45 Blood/Venous Blood Culture - Preliminary
No Growth in 72 hours- Final report to follow
11/06/24 18:27 Blood/Venous Blood Culture - Preliminary
No Growth in 72 hours- Final report to follow
11/09/24 12:46 Nasal Swab Influenza Types A & B (EDUARD) - Final
Influenza A Positive, NAAT
[2024-11-10] MEDS: TOPROL XL 25 MG PO (21:34)
[2024-11-11] MEDS: STERILE WATER FOR INJECTION 10 ML IV ×2 (02:20→13:25)
[2024-11-11] MEDS: MAXIPIME 2000 MG IV ×2 (02:21→13:25)
--- NOTE | 2024-11-11 05:07 | RESPNOTE ---
PT REFUSES ABG AT THIS TIME
[2024-11-11] MEDS: SOLU-MEDROL PF 40 MG IV (07:24)
[2024-11-11 07:30] VITALS: BP 128/61
[2024-11-11] MEDS: DUONEB 3 ML INH ×4 (07:39→20:08)
[2024-11-11] MEDS: PULMICORT 0.5 MG INH ×2 (07:39→20:08)
[2024-11-11] MEDS: THERAGRAN 1 TABLET PO (09:16)
[2024-11-11] MEDS: VIBRAMYCIN 100 MG PO (09:16)
[2024-11-11] MEDS: WELLBUTRIN XL (24 hour extended release) 150 MG PO (09:16)
[2024-11-11] MEDS: ENTRESTO 24 MG/26 MG 1 TAB PO ×2 (09:16→21:22)
[2024-11-11] MEDS: VITAMIN B1 100 MG PO ×2 (09:16→21:22)
[2024-11-11] MEDS: CLARITIN 10 MG PO (09:16)
[2024-11-11] MEDS: LOW STRENGTH ASPIRIN 81 MG PO (09:17)
[2024-11-11] MEDS: OSCAL 500 + D 1000 MG PO (09:17)
[2024-11-11] MEDS: ZOLOFT 50 MG PO (09:17)
[2024-11-11] MEDS: HEPARIN 5000 UNITS SC (09:17)
[2024-11-11] MEDS: MUCINEX 600 MG PO ×2 (09:17→21:23)
[2024-11-11] MEDS: FOLVITE 1 MG PO (09:17)
[2024-11-11] MEDS: TAMIFLU 30 MG PO ×2 (10:29→21:23)
--- NOTE | 2024-11-11 12:05 | W.PN.HOSP.TC ---
Today's Communication/Plan
-
cont Abx
Keep on IV steroids, plan to decrease tomorrow if wheezing improving
Assessment / Plan
Assessment / Plan
75yo F with PMHx of COPD with chronic hypoxic failure on 3L home O2 and current smoker, HFrEF, anxiety, CKD stage 3, recently managed for CHF exacerbation discharged from on 10/22/24 came with worsening SOB and also c/o L reinoso wound. Previously
discharged to rehab, now came from home. Patient is not compliant with diet and also due to insurance issues and hypotension - limited in GDMT selection for her CHF. CT chest showed significant mucus plugging, emphysema and subacute rib Fx.
Developed fever on 11/09/24 2/2 influenza A also concern for pneumonia, as agreed with Pulm - Cefepime/Doxy. Also MRSA on LLE wound - reasonable doxy for 10 days
A/P:
#Influenza A
#Unchanged 6 to 7 mm nodule within the anterior right upper lobe
#Unchanged 5 mm nodule within the posterior left upper lobe adjacent to the fissure
#Ill-defined 3 to 4 mm groundglass nodule within the right middle lobe
pulm eval
can be inflammatory
Broaden Abx to Cefepime/Doxy, plan to cont until 11/14/24
#Acute on chronic hypoxic respiratory failure 2/2 combined HFrEF and COPD exacerbation (centrilobular emphysema)
#Mild bronchiectasis within the basal aspects of both lower lobes with scattered areas of bronchial impaction within the right lower lobe
#Ischemic CM
Wheezing on admission and proBNP [id number]
Taper steroids and cont bronchodilators
Mucinex
Lasix PRN, low salt diet, FR, follow daily kidney function and electrolytes
Cardiology consult: close to euvolemia
S/P R and L cardiac cath 10/19/24 with mildly increased biventricular pressures
Echo 10/10/24: EF 35-40%, global hypokinesis, moderate MR and AR
GDMT limited by hypotension on last admission
wean off O2 to 3L
Pulmonology consult: cont bronchodilators
#Unchanged 6 to 7 mm nodule within the anterior right upper lobe
#Unchanged 5 mm nodule within the posterior left upper lobe adjacent to the fissure
#Ill-defined 3 to 4 mm groundglass nodule within the right middle lobe
pulm eval
can be inflammatory
#Nicotine dependency
counseled on smoking cessation
#exophytic nodule arises from the posterior left upper lobe measuring 15 mm
stable from june 2024
#multiple subacute appearing anterior right rib fractures, new compared to the prior CT.
#multiple compression deformities within the thoracic spine involving T5, T6, T8, T9, T10, and T11
Most likely osteoporotic
Outpatient treatment advised - daughter verbalized understanding. Will follow with PCP
add Oscal
check vit d 0.25
#L reinoso wound
as per patient - started in rehab
Wound care
wound culture
XR: No acute fracture or dislocation. Partially visualized regional joints demonstrate degenerative changes. Anterior reinoso soft tissue defect. No radiopaque foreign bodies. No overt radiographic evidence for osteomyelitis. Chronic appearing
periosteal reaction of the fibula.
GenSx - cont wound care, no suturing
MRSA in wound Cx sensitive to doxy - reasonable to complete 10 days, however no significant signs of infection
#Anxiety
#Chronic hallucinations
Psych consult
cont meds
#Essential HTN
#CKD stage 3b
cont home meds
avoid nephrotoxins
#macrocytosis 2/2 folate deficiency
replete
add thiamine
check B12
add multivitamin
DVT ppx hep
Full code
I have spent at least 37min reviewing chart, test results, communication with consultants and direct patient care
Anticipated Discharge: > 48 hours
Subjective/Interval History
-
Date of Service: November 11, 2024
Objective Data
-
Vital Signs:
Vital Signs
Temp Pulse Resp BP Pulse Ox
97.4 F 82 18 128/61 94
11/11/24 07:30 11/11/24 11:34 11/11/24 11:34 11/11/24 07:30 11/11/24 11:34
I&O
11/10/24 11/11/24 11/12/24
06:59 06:59 06:59
Intake Total 1200 / 1200
Output Total 100 / 100
Balance -100 / -100 1200 / 1200
Review of Systems
-
History Source: Patient
All other systems: Reviewed and negative
Physical Exam
-
General: No Apparent Distress
HEENT: Normocephalic
Respiratory: Wheezes
GI: Soft, Nontender and Nondistended
Genito-urinary: No Costovertebral Tender
Musculoskeletal: No Clubbing, No Cyanosis and No Edema
Neuro: Awake, Alert, Oriented and AO x 3
Psych: Calm
[2024-11-11] MEDS: FLUSH (NSS) 2 FLUSH IV ×2 (13:29→14:56)
--- NOTE | 2024-11-11 13:31 | W.PN.UPDATE ---
Update Note
Progress Note Update
Patient is doing well, pleasant and cooperative. Denies dysphoria, anhedonia or hopelessness. Appetite stable, denies insomnia.
As she is psychiatrically stable would continue current psychotropic regime.
--- NOTE | 2024-11-11 14:07 | W.PN.CD ---
Today's Communication / Plan
-
IV lasix today
Possible PO tomorrow
Impression / Plan
-
74F with HFrEF (EF 35-40%), COPD (steroid & O2 dependent), and chronic back pain on palliative care at home ([facility]), presented with shortness of breath.
Primary linen tech: Dr. 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
Resp insuff.
patient with [employer] O2 dependent and nonischmeic CM
- wheezing and crackles at bases
continue diuretic and await CT scan
-
Cardiomyopathy, HFrEF,
-Recently identified in October 2024
-cath 10/19/24 without obstructive CAD 9 only mild luminal irregularlties) PCWP 16 and weight 86.4kg on that day.
-Previously HFpEF, new reduction in EF to 35 to 40%. Improved s/p IV diuresis. Given renal dysfunction and relatively normal filling pressures,
-Status post Lasix in the ER.
-IV lasix today standing weights
-GDMT:
--Entresto started this admit.
--on metoprolol
--MRA on hold - start Entresto first
--SGLT2i not affordable
[place], improving. 1.3 todya
-Acute on chronic. Creatinine up to 2.6 on 10/14, now back to baseline 1.2 ( Baseline 1.5-1.8)
-Due to combination of diuresis, ARB initiation, and MRA - restarting Entresto now one at a time.
Abnormal troponin, 2/2 nonischemic myocardial injury
Back pain
-This is her main complaint
-Continue home pain control. Followed by palliative.
Valvular heart disease
-Mild to moderate mitral regurgitation
-Mild low gradient aortic stenosis by echo and cath
-Moderate aortic regurgitation
COPD, steroid and oxygen dependent
-Reported trial of increased steroids prior to admission
Former tobacco use, continue cessation recommended
Subjective: Breathing improved IV lasix today
Physical Exam
Vital Signs/Labs
Vital Signs
Temp Pulse Resp BP Pulse Ox
97.4 F 82 18 128/61 94
11/11/24 07:30 11/11/24 11:34 11/11/24 11:34 11/11/24 07:30 11/11/24 11:34
11/10/24 11/11/24 11/12/24
06:59 06:59 06:59
Actual Weight 173 lb 1.006 oz
11/10/24 05:01
11/10/24 05:01
Magnesium 1.9 mg/dl (1.6-2.3) 11/08/24 09:25
11/06/24 11/09/24
18:27 12:39
Vxo-W-Hckhdsplcbx Pept [id number]
LAB Results
11/09/24 11/09/24 11/09/24
12:12 12:35 12:39
Troponin I Cancelled Cancelled 0.016
Physical Exam
Constitutional: No acute distress
Cardiovascular: Rhythm & rate is regular
Respiratory: Wheeze Present
GI: Soft
Neuro/Psych: Alert and Oriented
Data Reviewed
-
Date of Service: November 11, 2024
EKG: Tracing Personally Visualized and interpreted (sr)
Echo: Report Reviewed by me
Labs: Labs Reviewed by me
[2024-11-11] MEDS: LASIX 40 MG IV (14:53)
[2024-11-11 14:57] VITALS: BP 114/70
--- NOTE | 2024-11-11 15:34 | W.PN.PUL3 ---
Today's Communication / Plan
-
Consider discontinuing antibiotics
Continue antiviral therapy
Transition to oral prednisone
Patient refused ABG to help set up hospital CPAP at home
Continue nebulizer
Assessment
-
74-year-old woman with past medical history of COPD, frequent exacerbations, chronic hypoxemic respiratory failure, heart failure with reduced ejection fraction, anxiety, chronic kidney disease stage III, discharged from the hospital 10/22/2024 for
acute exacerbation of heart failure. At that time discharged to rehab and then to home. This time coming from home with increased shortness of breath with any activity. She is having limited insurance and affordability, also has dietary
indiscretions. Underwent CT of the chest 11/08/2024
Acute respiratory insufficiency/shortness of breath-on baseline 3 L supplemental oxygen.
COPD/asthma overlap with acute exacerbation.
Abnormal CT chest: 1226 2023-6-7 mm lung nodule right upper lobe, 3-4 mm nodule left upper lobe. New 4 mm groundglass nodule right middle lobe. Small amount of irregular airspace consolidation within the posterior left lower lobe atelectasis
versus infectious. Emphysema.
Fever 11/09/2024 influenza A+ 11/09/2024
CHFrEF exacerbation
proBNP 14,000
S/P R and L cardiac cath 10/19/24 with mildly increased biventricular pressures
Echocardiogram 10/10/2024: Ejection fraction 30 to 40%. Global hypokinesis. Normal RV size and function. Moderate MR. Mild low-flow low gradient aortic stenosis. Moderate aortic regurgitation. Mild TR. New compared to 04/2024
Chronic kidney disease baseline
Leukocytosis-afebrile
Left calf laceration-surgery recommended local care 11/08/2024
Compression deformities within the thoracic spine, several which are new compared to prior. Multiple subacute anterior rib fractures-on CAT scan 11/08/2024.
DNR
Conditions present prior to admission:
Hospitalized for acute on chronic heart failure exacerbation October 21, 2024
Hospitalized for acute exacerbation 07/2024
Recent hospitalization 01/24/2024-COPD exacerbation
Recent hospitalization 03/19/2024-acute on top of chronic hypoxic respiratory failure CHF and COPD
Recent hospitalization 05/07-CHF, acute on top of chronic back pain, UTI, [place] and COPD
Recent hospitalization-06/22/2024-back pain, chronic hypoxemic respiratory failure, chronic COPD and chronic CHF
Repetitive hospitalizations for COPD exacerbation-December, April, July, August, September 2023
Syncope admission August 2020-found minimally responsive, septic shock, left lower extremity fasciitis requiring mechanical ventilation
s/p extensive surgical debridement and wound VAC for 10 months
COPD/asthma overlap oxygen dependent 2 L-followed by Dr. Roque-maintained on Lina Sexton
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
Active smoker.
Pulmonary nodule-largest 6.7 mm right upper lobe-CT 06/22/2024
Covid illness September 2023
Obstructive sleep apnea/CPAP intolerant.
Chronic heart failure preserved EF.
Moderate mitral regurgitation
Mild aortic stenosis
Moderate aortic regurgitation
Chronic kidney disease stage III.
Anxiety/depression.
Obesity.
Obstructive sleep apnea-previously noncompliant with CPAP-was willing to have repeat PSG and titration.
Sciatica.
Prior lumbar fracture.
Left lower extremity fasciitis.
Hyponatremia.
Renal calculi.
Cataract. Carpal tunnel release. Cholecystectomy 1975. Shoulder surgery 1992.
Assessment and plan:
Overall, patient appears to be improved objectively and subjectively
Wheezing has improved
Patient refused ABG this morning
Moving forward
continue with weaning of steroids
Remains on antibiotics
Suspect multifactorial causes
Respiratory decompensation likely a combination of CHF with reduced EF/valvular disease and advanced COPD-radiographs, echocardiograms, and CAT scan reviewed.
Initially on prednisone, back to IV corticosteroids 11/09/2024 due to fevers and feeling more lethargic.(Will try to limit with osteoporotic fractures)-hopefully a rapid taper.
Hold inhalers-usually on BREZTRI.
Given recurrent symptoms, will transition to oral nebulized therapy: Pulmicort twice a day, DuoNebs 4 times a day.
In the outpatient setting can be transitioned to Brovana and Yupelri if she determines that nebulized therapy has better results.
Continue mucolytics
-
Repeat influenza testing positive due to new fevers-Tamiflu 5 days.
Respiratory isolation per protocol.
-
Patient is a DNR-not to be intubated
-
Incentive spirometry encouraged
Acapella encouraged and mucus clearing devices
She is unlikely able to tolerate vest therapy with rib fractures.
Cough effort may be impaired with rib fractures.
-
CT chest noted: Left lower lobe pleural-based airspace disease atelectasis versus pneumonia. Also tiny right middle lobe groundglass opacity. Other findings are stable.
Leukocytosis-afebrile.
Negative procalcitonin.
Cultures reviewed
Initial influenza negative, repeat influenza 11/09/2024 due to fevers positive.
Blood cultures negative
sputum culture pending: History of Pseudomonas in the sputum.
-
Would consider discontinuing antibiotics
Continue as tolerated here
Will need outpatient radiographic follow-up.
-
Continue heart failure management
IV diuretics
It is noted that the patient has affordability issues for goal-directed therapy
She also is not that compliant with low-salt diet.
Check ABG in a.m. on room air
Obstructive sleep apnea-needs to complete further evaluation in the outpatient setting. In the past has not been compliant, used to follow-up in [place].
-
Monitor blood sugars
Insulin supplementation as needed
DVT prophylaxis-on subcu heparin.
Recommend outpatient follow-up with Dr. Wendy Roque or Lisa Riley NP within 2 weeks after discharge. Patient last time seen in our office was in March 2024 despite recurrent admissions.
-
Patient with peripheral eosinophilia, recurrent admissions, frequent steroids may benefit from biologic therapy, prolonged azithromycin course to prevent admissions and exacerbation also possibility. Will be readdressed in the outpatient setting.
Subjective Data
-
Date of Service:
Date of Service: November 11, 2024
Chief Complaint: Pulmonary Follow Up (Acute exacerbation of COPD/heart failure)
Subjective:
Patient is without complaints. She does have cough and wheezing. She denies chest pain, nausea, abdominal pain. She refused her ABG this morning. Patient seen earlier today, late entry
Objective Data
Data Reviewed
Vital Signs / I&O / Oxygen:
Vital Signs
Temp Pulse Resp BP Pulse Ox
97.8 F 83 18 114/70 94
11/11/24 14:57 11/11/24 15:29 11/11/24 15:29 11/11/24 14:57 11/11/24 15:29
Intake and Output
11/10/24 11/11/24 11/12/24
06:59 06:59 06:59
Intake Total 1200 / 1200
Output Total 100 / 100
Balance -100 / -100 1200 / 1200
SaO2 94
Nasal Cannula flow liters per 4
minute
Physical Exam
General: Comfortable
HEENT: Normocephalic, Anicteric and Other (Large neck)
Cardiovascular: S1-S2, Regular Rhythm and Murmur (n)
Respiratory: Wheeze (Few scattered), Crackles (n), Rhonchi (n) and Non-Labored Respirations
GI: Soft, Non Distended (Obese) and Non Tender
Neurology: Awake, Alert and No Motor Deficits (Moves all extremities)
Skin: Good Color
Labs/Micro/Reports
Lab Data
11/10/24 05:01
11/10/24 05:01
Laboratory Results
11/11/24
06:00
pH Cancelled
pCO2 Cancelled
pO2 Cancelled
HCO3 Cancelled
O2 Delivery Level Cancelled
Microbiology
11/09/24 12:59 Blood/Venous Blood Culture - Preliminary
No Growth in 48 hours- Final report to follow
11/09/24 12:38 Blood/Venous Blood Culture - Preliminary
No Growth in 48 hours- Final report to follow
11/09/24 14:30 Nose MRSA Screen - Final
Staph aureus MRSA
11/06/24 19:45 Blood/Venous Blood Culture - Preliminary
No Growth in 4 days- Final report to follow
11/06/24 18:27 Blood/Venous Blood Culture - Preliminary
No Growth in 4 days- Final report to follow
11/07/24 12:14 Leg - Left Wound Culture - Final
Staph aureus MRSA
11/07/24 12:14 Leg - Left Gram Stain - Final
11/09/24 12:46 Nasal Swab Influenza Types A & B (EDUARD) - Final
Influenza A Positive, NAAT
[2024-11-11 17:37] VITALS: BMI 27.8
[2024-11-11] MEDS: HEPARIN SC (21:22)
[2024-11-11] MEDS: TOPROL XL 25 MG PO (21:27)
[2024-11-11 23:05] VITALS: BP 109/61
[2024-11-12 06:00] VITALS: BMI 27.9
[2024-11-12 07:17] VITALS: BP 100/55
[2024-11-12] MEDS: PULMICORT 0.5 MG INH ×2 (07:51→19:37)
[2024-11-12] MEDS: DUONEB 3 ML INH ×4 (07:51→19:37)
[2024-11-12 08:57] LABS: Hematocrit 37.9 % (37.0-47.0); Hemoglobin 11.9 g/dL (12.0-16.0); Mean Corp Hgb Conc. 31.4 g/dL (33.0-37.0); Mean Corpuscular Hgb 30.9 pg (27.0-31.0); Mean Corpuscular Volume 98.4 fL (81.0-99.0); Mean Platelet Volume 10.2 fL (7.4-10.4); Platelet Count 340 10^3/uL (130-400); Red Blood Cell Count 3.85 10^6/uL (4.20-5.40); Red Cell Dist. Width 14.4 % (11.5-14.5); White Blood Cell Count 12.2 10^3/uL (4.8-10.8)
--- NOTE | 2024-11-12 09:19 | W.PN.PUL3 ---
Today's Communication / Plan
-
s/p course of ABx
Continue antiviral therapy
Continue prednisone with taper
Patient refused ABG to help set up hospital CPAP at home
Continue nebulizer
Mucolytics
Assessment
-
74-year-old woman with past medical history of COPD, frequent exacerbations, chronic hypoxemic respiratory failure, heart failure with reduced ejection fraction, anxiety, chronic kidney disease stage III, discharged from the hospital 10/22/2024 for
acute exacerbation of heart failure. At that time discharged to rehab and then to home. This time coming from home with increased shortness of breath with any activity. She is having limited insurance and affordability, also has dietary
indiscretions. Underwent CT of the chest 11/08/2024
Impression:
Acute respiratory insufficiency/shortness of breath-on baseline 3 L supplemental oxygen.
COPD/asthma overlap with acute exacerbation.
Abnormal CT chest: 1226 2023-6-7 mm lung nodule right upper lobe, 3-4 mm nodule left upper lobe. New 4 mm groundglass nodule right middle lobe. Small amount of irregular airspace consolidation within the posterior left lower lobe atelectasis
versus infectious. Emphysema.
Fever 11/09/2024 influenza A+ 11/09/2024
Acute HFrEF exacerbation
proBNP 14,000 on 11/06/2024
s/p R and L cardiac cath 10/19/24 with mildly increased biventricular pressures
Echocardiogram 10/10/2024: Ejection fraction 30 to 40%. Global hypokinesis. Normal RV size and function. Moderate MR. Mild low-flow low gradient aortic stenosis. Moderate aortic regurgitation. Mild TR. New compared to 04/2024
Chronic kidney disease (baseline creatinine approximately 1.5)
Leukocytosis-afebrile
Left calf laceration-surgery recommended local care 11/08/2024
Compression deformities within the thoracic spine, several which are new compared to prior. Multiple subacute anterior rib fractures-on CAT scan 11/08/2024.
DNR
Conditions present prior to admission:
Hospitalized for acute on chronic heart failure exacerbation October 21, 2024
Hospitalized for acute exacerbation 07/2024
Recent hospitalization 01/24/2024-COPD exacerbation
Recent hospitalization 03/19/2024-acute on top of chronic hypoxic respiratory failure CHF and COPD
Recent hospitalization 05/07-CHF, acute on top of chronic back pain, UTI, [place] and COPD
Recent hospitalization-06/22/2024-back pain, chronic hypoxemic respiratory failure, chronic COPD and chronic CHF
Repetitive hospitalizations for COPD exacerbation-December, April, July, August, September 2023
Syncope admission August 2020-found minimally responsive, septic shock, left lower extremity fasciitis requiring mechanical ventilation
s/p extensive surgical debridement and wound VAC for 10 months
COPD/asthma overlap oxygen dependent 2 L-followed by Dr. Roque-maintained on Lina Sexton
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
Active smoker.
Pulmonary nodule-largest 6.7 mm right upper lobe-CT 06/22/2024
Covid illness September 2023
Obstructive sleep apnea/CPAP intolerant.
Chronic heart failure preserved EF.
Moderate mitral regurgitation
Mild aortic stenosis
Moderate aortic regurgitation
Chronic kidney disease stage III.
Anxiety/depression.
Obesity.
Obstructive sleep apnea-previously noncompliant with CPAP-was willing to have repeat PSG and titration.
Sciatica.
Prior lumbar fracture.
Left lower extremity fasciitis.
Hyponatremia.
Renal calculi.
Cataract. Carpal tunnel release. Cholecystectomy 1975. Shoulder surgery 1992.
Assessment and plan:
Overall, patient appears to be improved objectively and subjectively
Wheezing has improved although still present this morning
Moving forward
continue with weaning of steroids
s/p course of antibiotics with doxycycline (11/11/2024), ceftriaxone (11/08 - 11/09/2024), + cefepime (11/11/2024) + IV vancomycin x 1 dose on 11/09/2024
Suspect multifactorial causes
Will need outpatient radiographic follow-up to ensure that her left lower lobe pneumonia resolves and that her nodules remain stable, especially her new 4 mm groundglass opacity in the right middle lobe (new compared to prior CT chest on 06/22/2024)
Respiratory decompensation likely a combination of CHF with reduced EF/valvular disease and advanced COPD-radiographs, echocardiograms, and CAT scan reviewed.
Initially on prednisone, back to IV corticosteroids 11/09/2024 due to fevers and feeling more lethargic, now back on PO prednisone as of today (try to limit with osteoporotic fractures)-hopefully a rapid taper.
Hold inhalers-usually on BREZTRI.
Given recurrent symptoms, transitioned to nebulized therapy: Pulmicort twice a day, DuoNebs 4 times a day.
In the outpatient setting can be transitioned to Brovana and Yupelri if she determines that nebulized therapy has better results.
Continue mucolytics
-
Repeat influenza testing on 11/09/2024 positive for Flu-A -Tamiflu 5 days.
Respiratory isolation per protocol.
-
Patient was a DNR-not to be intubated, now she is full code as of 11/06/2024
-
Incentive spirometry encouraged
Acapella encouraged and mucus clearing devices
She is unlikely able to tolerate vest therapy with rib fractures.
Cough effort may be impaired with rib fractures.
-
CT chest noted: Left lower lobe pleural-based airspace disease atelectasis versus pneumonia. Also tiny right middle lobe groundglass opacity. Other findings are stable.
Leukocytosis-afebrile.
Negative procalcitonin (0.2 on 11/07/2024, and 0.11 on 11/10/2024)
Cultures reviewed
Initial influenza negative, repeat influenza A is positive on 11/09/2024 due to fevers positive.
Blood cultures show NGTD
sputum culture pending - would collect if patient can provide a decent: History of Pseudomonas in the sputum.
-
-
Continue heart failure management
IV diuretics
It is noted that the patient has affordability issues for goal-directed therapy
She also is not that compliant with low-salt diet.
Check ABG in a.m. on room air
Obstructive sleep apnea-needs to complete further evaluation in the outpatient setting. In the past has not been compliant, used to follow-up in [place].
-
Monitor blood sugars
Insulin supplementation as needed
DVT prophylaxis-on subcu heparin.
Recommend outpatient follow-up with Dr. Wendy Roque or Lisa Riley ALMOND HULLER within 2 weeks after discharge. Patient last time seen in our office was in March 2024 despite recurrent admissions.
-
Patient with peripheral eosinophilia (was as high as 1300 on 07/19/2023), recurrent admissions, frequent steroids may benefit from biologic therapy, prolonged azithromycin course to prevent admissions and exacerbation also possibility. Will be
readdressed in the outpatient setting.
Total time spent today was 38 minutes for this encounter. Time includes reviewing laboratory test/imaging results, reviewing pertinent medical records, obtaining and reviewing medical history, performing an appropriate exam, ordering medications,
tests and procedures. Time also includes documentation of this encounter, coordinating patient care and communicating with other healthcare professionals. Total time does not include separately billed tests performed on this date of service.
Subjective Data
-
Date of Service:
Date of Service: November 12, 2024
Chief Complaint: Pulmonary Follow Up (Acute exacerbation of COPD/heart failure)
Subjective:
Patient seen and evaluated today at bedside. She is sleeping in no acute distress on room air, breathing comfortably. No acute events reported from overnight. Patient not verbally responding to my questions.
Review of Systems
General: Other (Unable to assess given patient's acute clinical status/noncommunicating)
Objective Data
Data Reviewed
Vital Signs / I&O / Oxygen:
Vital Signs
Temp Pulse Resp BP Pulse Ox
97.9 F 68 18 100/55 92
11/12/24 07:17 11/12/24 07:56 11/12/24 07:56 11/12/24 07:17 11/12/24 07:56
Intake and Output
11/11/24 11/12/24 11/13/24
06:59 06:59 06:59
Intake Total 1200 / 1200 600 / 600
Balance 1200 / 1200 600 / 600
SaO2 92
Nasal Cannula flow liters per 4
minute
Physical Exam
General: Respiratory Distress (n), Comfortable, Chills (n) and Sweats (n)
HEENT: Normocephalic, Anicteric and Other (Large neck)
Cardiovascular: S1-S2, Murmur (n), Peripheral Edema (n) and Other (Distant cardiac sounds)
Respiratory: Wheeze (Expiratory wheezing heard bilaterally), Crackles (n), Rhonchi (n) and Non-Labored Respirations
GI: Soft, Non Distended (Obese), Non Tender and Normal Bowel Sounds
Neurology: No Motor Deficits (Moves all extremities), Tremors (n) and Lethargic (Easily arousable to voice and tactile stimulation)
Skin: Warm, Dry, Cyanosis (n), Jaundice (n) and Other (Bandage seen on distal left lower extremity)
Labs/Micro/Reports
Lab Data
11/12/24 08:02
11/12/24 08:02
Laboratory Results
11/11/24
06:00
pH Cancelled
pCO2 Cancelled
pO2 Cancelled
HCO3 Cancelled
O2 Delivery Level Cancelled
Microbiology
11/06/24 19:45 Blood/Venous Blood Culture - Final
No Growth - Final Report
11/06/24 18:27 Blood/Venous Blood Culture - Final
No Growth - Final Report
11/09/24 12:59 Blood/Venous Blood Culture - Preliminary
No Growth in 48 hours- Final report to follow
11/09/24 12:38 Blood/Venous Blood Culture - Preliminary
No Growth in 48 hours- Final report to follow
11/09/24 14:30 Nose MRSA Screen - Final
Staph aureus MRSA
11/07/24 12:14 Leg - Left Wound Culture - Final
Staph aureus MRSA
11/07/24 12:14 Leg - Left Gram Stain - Final
11/09/24 12:46 Nasal Swab Influenza Types A & B (EDUARD) - Final
Influenza A Positive, NAAT
[2024-11-12 09:26] LABS: ALT (SGPT) 68 U/L (0-35); AST (SGOT) 71 U/L (14-36); Albumin 3.3 g/dl (3.5-5.0); Alkaline Phosphatase 81 U/L (38-126); Blood Urea Nitrogen 71 mg/dl (7-17); Calcium 9.4 mg/dl (8.4-10.2); Carbon Dioxide 26 mmol/L (22-30); Chloride 100 mmol/L (98-107); Estimated Creatinine Clearance 33 ml/min; Glucose 76 mg/dl (70-99); Potassium 4.1 mmol/L (3.5-5.1); Sodium 138 mmol/L (135-145); Total Bilirubin 0.4 mg/dl (0.2-1.3); eGFR 31.27
[2024-11-12] MEDS: CLARITIN 10 MG PO (09:49)
[2024-11-12] MEDS: OSCAL 500 + D 1000 MG PO (09:49)
[2024-11-12] MEDS: TAMIFLU 30 MG PO ×2 (09:49→21:45)
[2024-11-12] MEDS: DELTASONE 40 MG PO (09:49)
[2024-11-12] MEDS: WELLBUTRIN XL (24 hour extended release) 150 MG PO (09:49)
[2024-11-12] MEDS: VITAMIN B1 100 MG PO ×2 (09:49→21:55)
[2024-11-12] MEDS: ZOLOFT 50 MG PO (09:50)
[2024-11-12] MEDS: MUCINEX 600 MG PO ×2 (09:50→21:45)
[2024-11-12] MEDS: FOLVITE 1 MG PO (09:50)
[2024-11-12] MEDS: THERAGRAN 1 TABLET PO (09:50)
[2024-11-12] MEDS: HEPARIN 5000 UNITS SC ×2 (09:50→21:55)
[2024-11-12] MEDS: LOW STRENGTH ASPIRIN 81 MG PO (09:50)
[2024-11-12 10:04] LABS: % Basophils 0.2 % (0-2); % Eosinophils 0.1 % (0-6); % Lymphocytes 20.5 % (20.5-51.1); % Neutrophils 66.2 % (42.2-75.2); Absolute Immature Granulocytes 0.3 10^3/uL (0-0.05); Absolute Lymphocytes 2.5 10^3/uL (1.2-3.4); Absolute Monocytes 1.4 10^3/uL (0.1-0.6); Absolute Neutrophils 8.1 10^3/uL (1.4-6.5); Nucleated Red Blood Cells % 0.2 %
[2024-11-12] MEDS: ENTRESTO 24 MG/26 MG PO ×2 (10:17→21:56)
--- NOTE | 2024-11-12 10:36 | W.PN.CD ---
Today's Communication / Plan
-
PO lasix likely tomorrow
Cont GDMT as BP tolerates
Impression / Plan
-
74F with HFrEF (EF 35-40%), COPD (steroid & O2 dependent), and chronic back pain on palliative care at home ([facility]), presented with shortness of breath.
Primary crisis intervention counselor: Dr. 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
Resp insuff.
patient with [employer] O2 dependent and nonischmeic CM
- wheezing and crackles at bases
continue diuretic and await CT scan
-
Cardiomyopathy, HFrEF,
-Recently identified in October 2024
-cath 10/19/24 without obstructive CAD 9 only mild luminal irregularlties) PCWP 16 and weight 86.4kg on that day.
-Previously HFpEF, new reduction in EF to 35 to 40%. Improved s/p IV diuresis. Given renal dysfunction and relatively normal filling pressures,
-Status post Lasix in the ER.
-Cr bumped yesterday weight today is 83 kg, PCWP was 16 at 86, can assume this is dry weight, transition to PO lasix tomorrow
-GDMT:
--Entresto started this admit, holding 11/12 for low BP resume with systolics > 100
--on metoprolol
--MRA on hold - start Entresto first
--SGLT2i not affordable
[place], improving. 1.7 11/12
-Acute on chronic. Creatinine up to 2.6 on 10/14, now back to baseline 1.2 ( Baseline 1.5-1.8)
-Due to combination of diuresis, ARB initiation, and MRA - restarting Entresto now one at a time.
Abnormal troponin, 2/2 nonischemic myocardial injury
Back pain
-This is her main complaint
-Continue home pain control. Followed by palliative.
Valvular heart disease
-Mild to moderate mitral regurgitation
-Mild low gradient aortic stenosis by echo and cath
-Moderate aortic regurgitation
COPD, steroid and oxygen dependent
-Reported trial of increased steroids prior to admission
Former tobacco use, continue cessation recommended
Subjective: PO lasix tomorrow, breathing stable
Physical Exam
Vital Signs/Labs
Vital Signs
Temp Pulse Resp BP Pulse Ox
97.9 F 75 18 100/52 92
11/12/24 07:17 11/12/24 10:17 11/12/24 07:56 11/12/24 10:17 11/12/24 07:56
11/11/24 11/12/24 11/13/24
06:59 06:59 06:59
Actual Weight 183 lb 3.2 oz
11/12/24 08:02
11/12/24 08:02
Magnesium 1.9 mg/dl (1.6-2.3) 11/08/24 09:25
11/06/24 11/09/24
18:27 12:39
Erk-J-Yktzuitamfn Pept [id number]
LAB Results
11/09/24 11/09/24 11/09/24
12:12 12:35 12:39
Troponin I Cancelled Cancelled 0.016
Physical Exam
Constitutional: No acute distress and Comfortable
EENT: Anicteric
Cardiovascular: Rhythm & rate is regular
Respiratory: Respiratory effort normal and Other (poor air movement b/l )
GI: Soft
Neuro/Psych: AO x 3
Data Reviewed
-
Date of Service: November 12, 2024
EKG: Tracing Personally Visualized and interpreted (sr)
Echo: Report Reviewed by me
Labs: Labs Reviewed by me
--- NOTE | 2024-11-12 14:19 | W.PN.HOSP.TC ---
Today's Communication/Plan
-
likely transition to po lasix tomorrow depending on scr
po pred
Assessment / Plan
Assessment / Plan
75yo F with PMHx of COPD with chronic hypoxic failure on 3L home O2 and current smoker, HFrEF, anxiety, CKD stage 3, recently managed for CHF exacerbation discharged from on 10/22/24 came with worsening SOB and also c/o L reinoso wound. Previously
discharged to rehab, now came from home. Patient is not compliant with diet and also due to insurance issues and hypotension - limited in GDMT selection for her CHF. CT chest showed significant mucus plugging, emphysema and subacute rib Fx.
Developed fever on 11/09/24 2/2 influenza A also concern for pneumonia, as agreed with Pulm - Cefepime/Doxy. Also MRSA on LLE wound - reasonable doxy for 10 days
A/P:
#Acute on chronic hypoxic respiratory failure 2/2 combined HFrEF and COPD exacerbation (centrilobular emphysema) exacerbated by Flu A
#Mild bronchiectasis within the basal aspects of both lower lobes with scattered areas of bronchial impaction within the right lower lobe
#Ischemic CM
Wheezing on admission and proBNP 33676
Taper steroids and cont bronchodilators
Mucinex
Lasix PRN, low salt diet, FR, follow daily kidney function and electrolytes
Cardiology consult: close to euvolemia
S/P R and L cardiac cath 10/19/24 with mildly increased biventricular pressures
Echo 10/10/24: EF 35-40%, global hypokinesis, moderate MR and AR
GDMT limited by hypotension on last admission
wean off O2 to 3L
-Switch to PO steroids
-Cont diuresis, can switch to po likely tomorrow
-dc abx - no clear pneumonia
#Influenza A
#Unchanged 6 to 7 mm nodule within the anterior right upper lobe
#Unchanged 5 mm nodule within the posterior left upper lobe adjacent to the fissure
#Ill-defined 3 to 4 mm groundglass nodule within the right middle lobe
pulm eval
-tamiflu
-pulm eval outpatient
#CKD 3B
-monitor with diuresis
-as scr bumped with lasix - can hold today and monitor tomorrow
#Nicotine dependency
counseled on smoking cessation
#exophytic nodule arises from the posterior left upper lobe measuring 15 mm
stable from june 2024
f/u outpt
#multiple subacute appearing anterior right rib fractures, new compared to the prior CT.
#multiple compression deformities within the thoracic spine involving T5, T6, T8, T9, T10, and T11
Most likely osteoporotic
Outpatient treatment advised - daughter verbalized understanding. Will follow with PCP
add Oscal
check vit d 0.25
#L reinoso wound
as per patient - started in rehab
Wound care
wound culture
XR: No acute fracture or dislocation. Partially visualized regional joints demonstrate degenerative changes. Anterior reinoso soft tissue defect. No radiopaque foreign bodies. No overt radiographic evidence for osteomyelitis. Chronic appearing
periosteal reaction of the fibula.
GenSx - cont wound care, no suturing
MRSA in wound Cx sensitive to doxy - reasonable to complete 10 days, however no significant signs of infection
#Anxiety
#Chronic hallucinations
Psych consult
cont meds
#Essential HTN
#CKD stage 3b
cont home meds
avoid nephrotoxins
#macrocytosis 2/2 folate deficiency
replete
check B12
add multivitamin
DVT ppx hep
Full code
Anticipated Discharge: 24 - 48 hours
Subjective/Interval History
-
Date of Service: November 12, 2024
No acute events, patient feels better
Objective Data
-
Labs:
Laboratory Results
11/12/24
08:02
WBC 12.2 H
Hgb 11.9 L
Hct 37.9
Plt Count 340
Sodium 138
Potassium 4.1
Chloride 100
Carbon Dioxide 26
BUN 71 H
Creatinine 1.7 H
Glucose 76
Calcium 9.4
Total Bilirubin 0.4
AST 71 H
ALT 68 H
Alkaline Phosphatase 81
Vital Signs:
Vital Signs
Temp Pulse Resp BP Pulse Ox
97.9 F 70 18 100/52 95
11/12/24 07:17 11/12/24 11:26 11/12/24 11:26 11/12/24 10:17 11/12/24 11:26
I&O
11/11/24 11/12/24 11/13/24
06:59 06:59 06:59
Intake Total 1200 / 1200 600 / 600
Balance 1200 / 1200 600 / 600
Review of Systems
-
History Source: Patient
All other systems: Not reviewed unless documented
Physical Exam
-
General: No Apparent Distress
HEENT: Normocephalic
Respiratory: Wheezes
GI: Soft, Nontender and Nondistended
Genito-urinary: No Costovertebral Tender
Musculoskeletal: No Clubbing, No Cyanosis and No Edema
Neuro: Awake, Alert, Oriented and AO x 3
Psych: Calm
Data Reviewed
-
Total Time Spent with Patient (in minutes): 55
Diagnostic Radiology: Image personally visualized and interpreted and Report Reviewed by me
Labs: Labs Reviewed by me
[2024-11-12 15:16] VITALS: BP 104/87
[2024-11-12 16:16] VITALS: PULSE 87; O2SAT 97
[2024-11-12 21:36] VITALS: BMI 27.9
[2024-11-12] MEDS: TOPROL XL PO (21:56)
[2024-11-12 23:00] VITALS: BP 99/53
[2024-11-13 05:08] VITALS: BMI 27.9
[2024-11-13 06:00] VITALS: BMI 27.4
[2024-11-13] MEDS: PULMICORT 0.5 MG INH ×2 (07:08→20:19)
[2024-11-13] MEDS: DUONEB 3 ML INH ×4 (07:08→20:19)
[2024-11-13 07:37] VITALS: BP 100/51
--- NOTE | 2024-11-13 08:06 | W.PN.CD ---
Addendum entered and electronically signed by Hector Pleitez MD 11/13/24 13:15:
Creatinine still elevated 1.6. Can hold diuretic today. Probable restart of oral diuretic tomorrow.
Entresto remains on hold
Original Note:
Today's Communication / Plan
-
appears comfortable on 2liters
diuretics remain on hold. relatively low BP last night. Better this morning
restart oral diuretic when creatinine stable
Entresto on hold. consider restart of Entresto vs low dose ARB as BP and Creatinine improve
Check AM labs pending
Impression / Plan
-
74F with HFrEF (EF 35-40%), COPD (steroid & O2 dependent), and chronic back pain on palliative care at home ([facility]), presented with shortness of breath.
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
Resp insuff.
patient with HALL WORKER O2 dependent and nonischmeic CM
- wheezing and crackles at bases
continue diuretic and await CT scan
-
Cardiomyopathy, HFrEF,
-Recently identified in October 2024
-cath 10/19/24 without obstructive CAD 9 only mild luminal irregularlties) PCWP 16 and weight 86.4kg on that day.
-Previously HFpEF, new reduction in EF to 35 to 40%. Improved s/p IV diuresis. Given renal dysfunction and relatively normal filling pressures,
-Status post Lasix in the ER.
-Cr bumped to 1.5 on 11/12/24 weight 81, PCWP was 16 at 86, can assume this is dry weight,holding diuretic
-GDMT:
--Entresto started this admit, holding 11/12 for low BP. remained low 11/12/24. Hold until BP improves. If BP remains low could consider use of low dose Vasartan
--on metoprolol
--MRA on hold -
--SGLT2i not affordable
[place], improving. 1.7 11/12
-Acute on chronic. Creatinine up to 2.6 on 10/14, now back to baseline 1.2 ( Baseline 1.5-1.8)
-Due to combination of diuresis, ARB initiation, and MRA - restarting Entresto now one at a time.
Abnormal troponin, 2/2 nonischemic myocardial injury
Back pain
-This is her main complaint
-Continue home pain control. Followed by palliative.
Valvular heart disease
-Mild to moderate mitral regurgitation
-Mild low gradient aortic stenosis by echo and cath
-Moderate aortic regurgitation
COPD, steroid and oxygen dependent
-Reported trial of increased steroids prior to admission
Former tobacco use, continue cessation recommended
Subjective: PO lasix tomorrow, breathing stable
Physical Exam
Vital Signs/Labs
Vital Signs
Temp Pulse Resp BP Pulse Ox
98.3 F 73 16 100/51 93
11/13/24 07:37 11/13/24 07:37 11/13/24 07:37 11/13/24 07:37 11/13/24 07:37
11/12/24 11/13/24 11/14/24
06:59 06:59 06:59
Actual Weight 83.098 kg 81.692 kg
Magnesium 1.9 mg/dl (1.6-2.3) 11/08/24 09:25
11/06/24 11/09/24
18:27 12:39
Bqb-F-Edzowxnlszi Pept [id number]
Physical Exam
Constitutional: No acute distress
Cardiovascular: Rhythm & rate is regular
Respiratory: Rhonchi Absent and Wheeze Present
GI: Soft
Neuro/Psych: Alert
Data Reviewed
-
Date of Service: November 13, 2024
Medical Decision Making: Reviewed Test Results
Echo: Report Reviewed by me
Medical Tests (PFT, Pathology etc): Report Reviewed by me
Labs: Labs Reviewed by me
[2024-11-13 08:11] LABS: Venous Blood Gas B.E. 4.1 mmol/L (-4 to +4); Venous Blood Gas HCO3 30.6 mmol/L (22-27); Venous Blood Gas O2 Sat % 70.2 %; Venous Blood Gas pCO2 53 mmHg (35-48); Venous Blood Gas pH 7.37 (7.32-7.43); Venous Blood Gas pO2 42 mmHg (30-50)
[2024-11-13 08:12] LABS: Hematocrit 37.2 % (37.0-47.0); Hemoglobin 12.1 g/dL (12.0-16.0); Mean Corp Hgb Conc. 32.5 g/dL (33.0-37.0); Mean Corpuscular Hgb 31.8 pg (27.0-31.0); Mean Corpuscular Volume 97.9 fL (81.0-99.0); Mean Platelet Volume 10.3 fL (7.4-10.4); Platelet Count 295 10^3/uL (130-400); Red Cell Dist. Width 14.1 % (11.5-14.5); White Blood Cell Count 10.4 10^3/uL (4.8-10.8)
[2024-11-13 08:35] LABS: Blood Urea Nitrogen 70 mg/dl (7-17); Calcium 9.8 mg/dl (8.4-10.2); Carbon Dioxide 33 mmol/L (22-30); Chloride 102 mmol/L (98-107); Estimated Creatinine Clearance 31 ml/min; Glucose 83 mg/dl (70-99); Potassium 4.2 mmol/L (3.5-5.1); Sodium 140 mmol/L (135-145); eGFR 33.63
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
[2024-11-13] MEDS: VITAMIN B1 100 MG PO ×2 (09:30→21:10)
[2024-11-13] MEDS: TAMIFLU 30 MG PO ×2 (09:31→21:10)
[2024-11-13] MEDS: FOLVITE 1 MG PO (09:31)
[2024-11-13] MEDS: CLARITIN 10 MG PO (09:31)
[2024-11-13] MEDS: MUCINEX 600 MG PO ×2 (09:31→21:10)
[2024-11-13] MEDS: ZOLOFT 50 MG PO (09:31)
[2024-11-13] MEDS: THERAGRAN 1 TABLET PO (09:31)
[2024-11-13] MEDS: DELTASONE 40 MG PO (09:31)
[2024-11-13] MEDS: OSCAL 500 + D 1000 MG PO (09:31)
[2024-11-13] MEDS: LOW STRENGTH ASPIRIN 81 MG PO (09:31)
[2024-11-13] MEDS: HEPARIN 5000 UNITS SC ×2 (09:32→21:09)
[2024-11-13] MEDS: WELLBUTRIN XL (24 hour extended release) 150 MG PO (09:32)
[2024-11-13] MEDS: ENTRESTO 24 MG/26 MG PO (09:45)
--- NOTE | 2024-11-13 13:31 | W.PN.HOSP.TC ---
Today's Communication/Plan
-
f/u gas for possible NIV therapy at home
Hold diuretics for today
Pred taper
Assessment / Plan
Assessment / Plan
75yo F with PMHx of COPD with chronic hypoxic failure on 3L home O2 and current smoker, HFrEF, anxiety, CKD stage 3, recently managed for CHF exacerbation discharged from on 10/22/24 came with worsening SOB and also c/o L reinoso wound. Previously
discharged to rehab, now came from home. Patient is not compliant with diet and also due to insurance issues and hypotension - limited in GDMT selection for her CHF. CT chest showed significant mucus plugging, emphysema and subacute rib Fx.
Developed fever on 11/09/24 2/2 influenza A also concern for pneumonia, as agreed with Pulm - Cefepime/Doxy. Also MRSA on LLE wound - reasonable doxy for 10 days
A/P:
#Acute on chronic hypoxic respiratory failure 2/2 combined HFrEF and COPD exacerbation (centrilobular emphysema) exacerbated by Flu A
#Mild bronchiectasis within the basal aspects of both lower lobes with scattered areas of bronchial impaction within the right lower lobe
#Ischemic CM
Wheezing on admission and proBNP 32632
Taper steroids and cont bronchodilators
Mucinex
Lasix PRN, low salt diet, FR, follow daily kidney function and electrolytes
Cardiology consult
S/P R and L cardiac cath 10/19/24 with mildly increased biventricular pressures
Echo 10/10/24: EF 35-40%, global hypokinesis, moderate MR and AR
GDMT limited by hypotension on last admission
wean off O2 to 3L
-Switch to PO steroids taper
-most likely can add back lasix tomorrow
-dc abx - no clear pneumonia
#Influenza A
#Unchanged 6 to 7 mm nodule within the anterior right upper lobe
#Unchanged 5 mm nodule within the posterior left upper lobe adjacent to the fissure
#Ill-defined 3 to 4 mm groundglass nodule within the right middle lobe
pulm eval
-tamiflu
-pulm eval outpatient
#CKD 3B
-monitor with diuresis
-as scr bumped with lasix - can hold today and monitor tomorrow
#Nicotine dependency
counseled on smoking cessation
#exophytic nodule arises from the posterior left upper lobe measuring 15 mm
stable from june 2024
f/u outpt
#multiple subacute appearing anterior right rib fractures, new compared to the prior CT.
#multiple compression deformities within the thoracic spine involving T5, T6, T8, T9, T10, and T11
Most likely osteoporotic
Outpatient treatment advised - daughter verbalized understanding. Will follow with PCP
add Oscal
check vit d 0.25
#L reinoso wound
as per patient - started in rehab
Wound care
wound culture
XR: No acute fracture or dislocation. Partially visualized regional joints demonstrate degenerative changes. Anterior reinoso soft tissue defect. No radiopaque foreign bodies. No overt radiographic evidence for osteomyelitis. Chronic appearing
periosteal reaction of the fibula.
GenSx - cont wound care, no suturing
MRSA in wound Cx sensitive to doxy - reasonable to complete 10 days, however no significant signs of infection
#Anxiety
#Chronic hallucinations
Psych consult
cont meds
#Essential HTN
#CKD stage 3b
cont home meds
avoid nephrotoxins
#macrocytosis 2/2 folate deficiency
replete
check B12
add multivitamin
DVT ppx hep
Full code
Anticipated Discharge: 24 - 48 hours
Subjective/Interval History
-
Date of Service: November 13, 2024
Patient feels better
Objective Data
-
Labs:
Laboratory Results
11/13/24
08:02
WBC 10.4
Hgb 12.1
Hct 37.2
Plt Count 295
Sodium 140
Potassium 4.2
Chloride 102
Carbon Dioxide 33 H
BUN 70 H
Creatinine 1.6 H
Glucose 83
Calcium 9.8
Vital Signs:
Vital Signs
Temp Pulse Resp BP Pulse Ox
98.3 F 77 16 100/51 93
11/13/24 07:37 11/13/24 10:36 11/13/24 07:37 11/13/24 07:37 11/13/24 07:37
I&O
11/12/24 11/13/24 11/14/24
06:59 06:59 06:59
Intake Total 600 / 600 480 / 480
Balance 600 / 600 480 / 480
Review of Systems
-
History Source: Patient
All other systems: Not reviewed unless documented
Physical Exam
-
General: No Apparent Distress
HEENT: Normocephalic
Respiratory: Wheezes (Mild expiratory)
GI: Soft, Nontender and Nondistended
Genito-urinary: No Costovertebral Tender
Musculoskeletal: No Clubbing, No Cyanosis and No Edema
Neuro: Awake, Alert, Oriented and AO x 3
Psych: Calm
Data Reviewed
-
Total Time Spent with Patient (in minutes): 55
Diagnostic Radiology: Image personally visualized and interpreted and Report Reviewed by me
Labs: Labs Reviewed by me
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
--- NOTE | 2024-11-13 15:15 | PN.CDI ---
CDI
- -
CDI:
Physician Documentation Request
Admit Date: 11/09/24 09:51
Dear Doctor Cortez,
Patient admitted with influenza A.
11/13 PN, 'Acute on chronic hypoxic respiratory failure 2/2 combined HFrEF and COPD exacerbation....Wheezing on admission and proBNP 11481.'
Patient received IV Lasix 40 mg IV x 1 on 11/11.
Based on the above findings, please clarify in your note the acuity of the documented systolic CHF:
Acute on chronic systolic CHF
Chronic systolic CHF only
Other
Use of terms such as suspected, likely, concern for, or probable (associated with a specific diagnosis that is being evaluated, monitored, or treated as if it exists) are acceptable and can be coded in the inpatient setting, when documented at the
time of discharge.
Thank you,
Nelda HEADLEY,RN,CCDS
CDI Specialist
Available via tiger text
Please use your independent medical judgment in providing your response.
[2024-11-13 15:22] VITALS: BP 124/95
--- NOTE | 2024-11-13 15:27 | PN.CDI ---
CDI
- -
CDI:
Physician Documentation Request
Admit Date: 11/09/24 09:51
Dear Doctor Cortez,
Patient admitted with influenza A.
On admission, WBC 12.7, HR> 90 and RR> 20.
Please clarify which of the following most accurately describes the status of the patient's infection:
Viral sepsis, POA
Influenza A only
Other
Sepsis
- Systemic manifestations of infection, with 2 or more SIRS criteria which include:
- Fever >100.4 degrees F or hypothermia < 96.8 degrees F
- Leukocytosis - WBC > 12,000 or leukopenia - WBC < 4,000 or > 10% bands
- Tachycardia > 90 beats per minute
- Tachypnea - RR > 20 breaths per minute or PaCO2 , 32mmHg
Source: Merck Manual 2013
- Indicate the known or suspected organism
- Indicate the known or suspected underlying infection, such as Influenza A
Localized Infection Only, Without Systemic Illness
- indicate the site/source, such as Influenza A
Other
Use of terms such as suspected, likely, concern for, or probable (associated with a specific diagnosis that is being evaluated, monitored, or treated as if it exists) are acceptable and can be coded in the inpatient setting, when documented at the
time of discharge.
Thank you,
Nelda HEADLEY,RN,CCDS
CDI Specialist
Available via [employer]ella text
Please use your independent medical judgment in providing your response.
[2024-11-13] MEDS: TOPROL XL 25 MG PO (22:55)
[2024-11-13 23:20] VITALS: BP 112/70
[2024-11-13 23:55] VITALS: PULSE 81
[2024-11-14 06:00] VITALS: BMI 27.3
[2024-11-14] MEDS: DUONEB 3 ML INH ×4 (07:10→20:19)
[2024-11-14 07:53] VITALS: BP 104/66
[2024-11-14 08:18] LABS: Hematocrit 37.6 % (37.0-47.0); Hemoglobin 11.9 g/dL (12.0-16.0); Mean Corp Hgb Conc. 31.6 g/dL (33.0-37.0); Mean Corpuscular Hgb 31.2 pg (27.0-31.0); Mean Corpuscular Volume 98.7 fL (81.0-99.0); Mean Platelet Volume 10.4 fL (7.4-10.4); Platelet Count 306 10^3/uL (130-400); Red Blood Cell Count 3.81 10^6/uL (4.20-5.40); Red Cell Dist. Width 14.2 % (11.5-14.5); White Blood Cell Count 12.9 10^3/uL (4.8-10.8)
[2024-11-14 09:03] LABS: ALT (SGPT) 58 U/L (0-35); AST (SGOT) 32 U/L (14-36); Albumin 3.3 g/dl (3.5-5.0); Alkaline Phosphatase 85 U/L (38-126); Blood Urea Nitrogen 69 mg/dl (7-17); Calcium 9.8 mg/dl (8.4-10.2); Carbon Dioxide 29 mmol/L (22-30); Chloride 102 mmol/L (98-107); Estimated Creatinine Clearance 36 ml/min; Glucose 87 mg/dl (70-99); Potassium 4.6 mmol/L (3.5-5.1); Sodium 138 mmol/L (135-145); Total Bilirubin 0.5 mg/dl (0.2-1.3); eGFR 39.48
[2024-11-14] MEDS: TAMIFLU 30 MG PO (09:42)
[2024-11-14] MEDS: WELLBUTRIN XL (24 hour extended release) 150 MG PO (09:42)
[2024-11-14] MEDS: CLARITIN 10 MG PO (09:42)
[2024-11-14] MEDS: DELTASONE 40 MG PO (09:43)
[2024-11-14] MEDS: MUCINEX 600 MG PO ×2 (09:43→20:54)
[2024-11-14] MEDS: LOW STRENGTH ASPIRIN 81 MG PO (09:43)
[2024-11-14] MEDS: ZOLOFT 50 MG PO (09:44)
[2024-11-14] MEDS: THERAGRAN 1 TABLET PO (09:44)
[2024-11-14] MEDS: OSCAL 500 + D 1000 MG PO (09:45)
[2024-11-14] MEDS: HEPARIN 5000 UNITS SC ×2 (09:46→20:55)
[2024-11-14] MEDS: FOLVITE 1 MG PO (09:49)
[2024-11-14] MEDS: VITAMIN B1 100 MG PO ×2 (09:49→20:55)
[2024-11-14] MEDS: PULMICORT 0.5 MG INH ×2 (10:03→20:19)
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
--- NOTE | 2024-11-14 14:09 | W.PN.HOSP.TC ---
Addendum entered and electronically signed by Dung Toro MD 11/14/24 16:55:
Acute on chronic systolic CHF
Addendum entered and electronically signed by Dung Toro MD 11/14/24 16:54:
#Sepsis, unable to specify further
Original Note:
Today's Communication/Plan
-
Monitor CBC
Add back p.o. Lasix
Await final pulmonary recommendations
Assessment / Plan
Assessment / Plan
75yo F with PMHx of COPD with chronic hypoxic failure on 3L home O2 and current smoker, HFrEF, anxiety, CKD stage 3, recently managed for CHF exacerbation discharged from on 10/22/24 came with worsening SOB and also c/o L reinoso wound. Previously
discharged to rehab, now came from home. Patient is not compliant with diet and also due to insurance issues and hypotension - limited in GDMT selection for her CHF. CT chest showed significant mucus plugging, emphysema and subacute rib Fx.
Developed fever on 11/09/24 2/2 influenza A also concern for pneumonia, as agreed with Pulm - Cefepime/Doxy. Also MRSA on LLE wound - reasonable doxy for 10 days
A/P:
#Acute on chronic hypoxic respiratory failure 2/2 combined HFrEF and COPD exacerbation (centrilobular emphysema) exacerbated by Flu A
#Mild bronchiectasis within the basal aspects of both lower lobes with scattered areas of bronchial impaction within the right lower lobe
#Ischemic CM
Wheezing on admission and proBNP 26234
Taper steroids and cont bronchodilators
Mucinex
Lasix PRN, low salt diet, FR, follow daily kidney function and electrolytes
Cardiology consult
S/P R and L cardiac cath 10/19/24 with mildly increased biventricular pressures
Echo 10/10/24: EF 35-40%, global hypokinesis, moderate MR and AR
GDMT limited by hypotension on last admission
wean off O2 to 3L
-Switch to PO steroids taper
-add back lasix
-dc abx - no clear pneumonia
#Influenza A
#Unchanged 6 to 7 mm nodule within the anterior right upper lobe
#Unchanged 5 mm nodule within the posterior left upper lobe adjacent to the fissure
#Ill-defined 3 to 4 mm groundglass nodule within the right middle lobe
pulm eval
-tamiflu
-pulm eval outpatient
#CKD 3B
-monitor with diuresis
-as scr bumped with lasix - can hold today and monitor tomorrow
#Nicotine dependency
counseled on smoking cessation
#exophytic nodule arises from the posterior left upper lobe measuring 15 mm
stable from june 2024
f/u outpt
Visual hallucinations
� Unlikely metabolic
� Educated, should have noninvasive ventilation as do not want hypercapnia because of CO2 narcosis
� Outpatient ophthalmology appointment
#multiple subacute appearing anterior right rib fractures, new compared to the prior CT.
#multiple compression deformities within the thoracic spine involving T5, T6, T8, T9, T10, and T11
Most likely osteoporotic
Outpatient treatment advised - daughter verbalized understanding. Will follow with PCP
add Oscal
check vit d 0.25
#L reinoso wound
as per patient - started in rehab
Wound care
wound culture
XR: No acute fracture or dislocation. Partially visualized regional joints demonstrate degenerative changes. Anterior reinoso soft tissue defect. No radiopaque foreign bodies. No overt radiographic evidence for osteomyelitis. Chronic appearing
periosteal reaction of the fibula.
GenSx - cont wound care, no suturing
MRSA in wound Cx sensitive to doxy - reasonable to complete 10 days, however no significant signs of infection
#Anxiety
#Chronic hallucinations
Psych consult
cont meds
#Essential HTN
#CKD stage 3b
cont home meds
avoid nephrotoxins
#macrocytosis 2/2 folate deficiency
replete
DVT ppx hep
Full code
Anticipated Discharge: Within 24 hours
Subjective/Interval History
-
Date of Service: November 14, 2024
no acute events
Objective Data
-
Labs:
Laboratory Results
11/14/24
07:53
WBC 12.9 H
Hgb 11.9 L
Hct 37.6
Plt Count 306
Sodium 138
Potassium 4.6
Chloride 102
Carbon Dioxide 29
BUN 69 H
Creatinine 1.4 H
Glucose 87
Calcium 9.8
Total Bilirubin 0.5
AST 32
ALT 58 H
Alkaline Phosphatase 85
Vital Signs:
Vital Signs
Temp Pulse Resp BP Pulse Ox
96.5 F L 77 20 104/66 98
11/14/24 07:53 11/14/24 10:08 11/14/24 10:08 11/14/24 07:53 11/14/24 07:53
I&O
11/13/24 11/14/24 11/15/24
06:59 06:59 06:59
Intake Total 480 / 480 780 / 780
Balance 480 / 480 780 / 780
Review of Systems
-
History Source: Patient
All other systems: Not reviewed unless documented
Physical Exam
-
General: No Apparent Distress
HEENT: Normocephalic
Respiratory: Wheezes (Mild expiratory)
GI: Soft, Nontender and Nondistended
Genito-urinary: No Costovertebral Tender
Musculoskeletal: No Clubbing, No Cyanosis and No Edema
Neuro: Awake, Alert, Oriented and AO x 3
Psych: Calm
Data Reviewed
-
Total Time Spent with Patient (in minutes): 55
Diagnostic Radiology: Image personally visualized and interpreted and Report Reviewed by me
Labs: Labs Reviewed by me
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
--- NOTE | 2024-11-14 15:28 | W.PN.CD ---
Today's Communication / Plan
-
resume lasix
hold of on Entresto and MRA
Impression / Plan
-
74F with HFrEF (EF 35-40%), COPD (steroid & O2 dependent), and chronic back pain on palliative care at home ([facility]), presented with shortness of breath.
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
Resp insuff.
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
- wheezing and crackles at bases
continue diuretic and await CT scan
-
Cardiomyopathy, HFrEF,
-Recently identified in October 2024
-cath 10/19/24 without obstructive CAD 9 only mild luminal irregularlties) PCWP 16 and weight 86.4kg on that day.
-Previously HFpEF, new reduction in EF to 35 to 40%. Improved s/p IV diuresis. Given renal dysfunction and relatively normal filling pressures,
-Status post Lasix in the ER.
-Cr bumped to 1.5 on 11/12/24 weight 81, PCWP was 16 at 86, can assume this is dry weight
-Cr improved to 1.4, furosemide added back
-GDMT:
--Entresto started this admit, holding 11/12 for low BP. remained low 11/12/24. Hold until BP improves. If BP remains low could consider use of low dose Vasartan with clinical improvement
--on metoprolol
--MRA on hold, can reconsider as op
--SGLT2i not affordable
[place], improving. 1.7 11/12
-Acute on chronic. Back to baseline
-Due to combination of diuresis, ARB initiation, and MRA - restarting furosemide
Abnormal troponin, 2/2 nonischemic myocardial injury
Back pain
-Continue home pain control. Followed by palliative.
Valvular heart disease
-Mild to moderate mitral regurgitation
-Mild low gradient aortic stenosis by echo and cath
-Moderate aortic regurgitation
COPD, steroid and oxygen dependent
-Reported trial of increased steroids prior to admission
Former tobacco use, continue cessation recommended
Subjective: she is feeling better but still sob. D/c planning for tomorrow.
Physical Exam
Vital Signs/Labs
Vital Signs
Temp Pulse Resp BP Pulse Ox
96.5 F L 80 18 104/66 98
11/14/24 07:53 11/14/24 15:16 11/14/24 15:16 11/14/24 07:53 11/14/24 07:53
11/13/24 11/14/24 11/15/24
06:59 06:59 06:59
Actual Weight 81.692 kg 81.278 kg
11/14/24 07:53
11/14/24 07:53
Magnesium 1.9 mg/dl (1.6-2.3) 11/08/24 09:25
11/06/24 11/09/24
18:27 12:39
Swh-B-Xaplekfojcw Pept [id number]
Physical Exam
Constitutional: No acute distress
Cardiovascular: Rhythm & rate is regular, Systolic murmur absent and Diastolic murmur absent
Respiratory: Respiratory effort normal, Crackles Absent and Wheeze Present
Neuro/Psych: AO x 3
Data Reviewed
-
Date of Service: November 14, 2024
Medical Decision Making: Review of Case with other Provider (updated Dr Romano hold entresto/MRA and resume furosemide)
[2024-11-14 15:37] VITALS: BP 92/58
[2024-11-14] MEDS: LASIX 20 MG PO (15:41)
[2024-11-14 17:01] VITALS: BP 100/57; PULSE 79; O2SAT 96
[2024-11-14] MEDS: ROXICODONE 5 MG PO (19:14)
[2024-11-14] MEDS: MELATONIN 10 MG PO (20:55)
[2024-11-14] MEDS: TOPROL XL 25 MG PO (20:56)
[2024-11-14 23:00] VITALS: BP 107/52
[2024-11-15 06:00] VITALS: BMI 27.4
[2024-11-15 06:25] LABS: Hematocrit 38.4 % (37.0-47.0); Hemoglobin 12.2 g/dL (12.0-16.0); Mean Corp Hgb Conc. 31.8 g/dL (33.0-37.0); Mean Corpuscular Hgb 31.9 pg (27.0-31.0); Mean Corpuscular Volume 100.3 fL (81.0-99.0); Mean Platelet Volume 10.7 fL (7.4-10.4); Platelet Count 293 10^3/uL (130-400); Red Blood Cell Count 3.83 10^6/uL (4.20-5.40); Red Cell Dist. Width 14.2 % (11.5-14.5); White Blood Cell Count 14.7 10^3/uL (4.8-10.8)
[2024-11-15 06:48] LABS: ALT (SGPT) 57 U/L (0-35); AST (SGOT) 29 U/L (14-36); Albumin 3.6 g/dl (3.5-5.0); Alkaline Phosphatase 93 U/L (38-126); Blood Urea Nitrogen 64 mg/dl (7-17); Calcium 9.8 mg/dl (8.4-10.2); Carbon Dioxide 32 mmol/L (22-30); Chloride 100 mmol/L (98-107); Estimated Creatinine Clearance 31 ml/min; Glucose 99 mg/dl (70-99); Potassium 4.6 mmol/L (3.5-5.1); Sodium 138 mmol/L (135-145); Total Bilirubin 0.4 mg/dl (0.2-1.3); Total Protein 6.3 g/dl (6.3-8.2); eGFR 33.63
[2024-11-15 07:22] VITALS: BP 98/48
[2024-11-15] MEDS: MUCINEX 600 MG PO (08:34)
[2024-11-15] MEDS: VITAMIN B1 100 MG PO (08:34)
[2024-11-15] MEDS: CLARITIN 10 MG PO (08:34)
[2024-11-15] MEDS: DELTASONE 40 MG PO (08:34)
[2024-11-15] MEDS: WELLBUTRIN XL (24 hour extended release) 150 MG PO (08:34)
[2024-11-15] MEDS: THERAGRAN 1 TABLET PO (08:34)
[2024-11-15] MEDS: ZOLOFT 50 MG PO (08:35)
[2024-11-15] MEDS: OSCAL 500 + D 1000 MG PO (08:35)
[2024-11-15] MEDS: LOW STRENGTH ASPIRIN 81 MG PO (08:35)
[2024-11-15] MEDS: HEPARIN 5000 UNITS SC (08:35)
[2024-11-15] MEDS: FOLVITE 1 MG PO (08:36)
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
[2024-11-15] MEDS: PULMICORT 0.5 MG INH (08:59)
[2024-11-15] MEDS: DUONEB 3 ML INH ×3 (08:59→15:37)
[2024-11-15] MEDS: LASIX 20 MG PO (12:42)
--- NOTE | 2024-11-15 13:06 | CM ---
MD entered order for discharge.
Spoke with pt she said she was ready for discharge to home.
Pt refused SNF.
Pt requested [facility]. [facility] liaison notified.Referral reentered in care port.
IMM given reviewed / Pt agreed with dc to home today.
Spoke with dgt Alma Delia [phone] she said she can pick pt up at 5 pm after work.Dgt to bring home oxygen.
Maintained on 3 liters oxygen O2 Pox 96% Home oxygen with [employer].
Pt has Nebulizer at home.
PLAN Home with [facility] fax [phone]
--- NOTE | 2024-11-15 13:41 | W.PN.HOSP.TC ---
Addendum entered and electronically signed by Dung Toro MD 11/18/24 16:06:
[id number]
Original Note:
Today's Communication/Plan
-
pred taper
pulmicort/duonebs - can re-address MDI outpatient
lasix
F/u PCP, ophthalmology, pulmonology, cardiology
Assessment / Plan
Assessment / Plan
75yo F with PMHx of COPD with chronic hypoxic failure on 3L home O2 and current smoker, HFrEF, anxiety, CKD stage 3, recently managed for CHF exacerbation discharged from on 10/22/24 came with worsening SOB and also c/o L reinoso wound. Previously
discharged to rehab, now came from home. Patient is not compliant with diet and also due to insurance issues and hypotension - limited in GDMT selection for her CHF. CT chest showed significant mucus plugging, emphysema and subacute rib Fx.
Developed fever on 11/09/24 2/2 influenza A also concern for pneumonia, as agreed with Pulm - Cefepime/Doxy. Also MRSA on LLE wound - reasonable doxy for 10 days
A/P:
#Acute on chronic hypoxic respiratory failure 2/2 combined HFrEF and COPD exacerbation (centrilobular emphysema) exacerbated by Flu A
#Mild bronchiectasis within the basal aspects of both lower lobes with scattered areas of bronchial impaction within the right lower lobe
#Ischemic CM
Wheezing on admission and proBNP [id number]
Taper steroids and cont bronchodilators: Pulmicort/DuoNebs-hold inhalers feels better on this.
Mucinex
Lasix PRN, low salt diet, FR, follow daily kidney function and electrolytes
Cardiology consult
S/P R and L cardiac cath 10/19/24 with mildly increased biventricular pressures
Echo 10/10/24: EF 35-40%, global hypokinesis, moderate MR and AR
GDMT limited by hypotension on last admission
wean off O2 to 3L
-Switch to PO steroids taper
-add back lasix
-dc abx - no clear pneumonia
#Influenza A
#Unchanged 6 to 7 mm nodule within the anterior right upper lobe
#Unchanged 5 mm nodule within the posterior left upper lobe adjacent to the fissure
#Ill-defined 3 to 4 mm groundglass nodule within the right middle lobe
pulm eval
-Tamilfu completed
-pulm eval outpatient
#CKD 3B
-monitor with diuresis
-as scr bumped with lasix - can hold today and monitor tomorrow
#Nicotine dependency
counseled on smoking cessation
#exophytic nodule arises from the posterior left upper lobe measuring 15 mm
stable from june 2024
f/u outpt
Visual hallucinations
� Unlikely metabolic
� Educated, should have noninvasive ventilation as do not want hypercapnia because of CO2 narcosis
� Outpatient ophthalmology appointment
#multiple subacute appearing anterior right rib fractures, new compared to the prior CT.
#multiple compression deformities within the thoracic spine involving T5, T6, T8, T9, T10, and T11
Most likely osteoporotic
Outpatient treatment advised - daughter verbalized understanding. Will follow with PCP
add Oscal
check vit d 0.25
#L reinoso wound
as per patient - started in rehab
Wound care
wound culture
XR: No acute fracture or dislocation. Partially visualized regional joints demonstrate degenerative changes. Anterior reinoso soft tissue defect. No radiopaque foreign bodies. No overt radiographic evidence for osteomyelitis. Chronic appearing
periosteal reaction of the fibula.
GenSx - cont wound care, no suturing
no purulence noted
#Anxiety
#Chronic hallucinations
Psych consult
cont meds
#Essential HTN
#CKD stage 3b
cont home meds
avoid nephrotoxins
#macrocytosis 2/2 folate deficiency
replete
DVT ppx hep
Full code
More than 30 minutes spent in discharge including
Final examination of the patient
Summarizing hospital stay
Instructions for continuing care to all relevant caregivers
Preparation of discharge records, prescriptions, and referral forms
Total time spent (36 in minutes):
Anticipated Discharge: Today
Subjective/Interval History
-
Date of Service: November 15, 2024
no acute events
Objective Data
-
Labs:
Laboratory Results
11/15/24
06:01
WBC 14.7 H
Hgb 12.2
Hct 38.4
Plt Count 293
Sodium 138
Potassium 4.6
Chloride 100
Carbon Dioxide 32 H
BUN 64 H
Creatinine 1.6 H
Glucose 99
Calcium 9.8
Total Bilirubin 0.4
AST 29
ALT 57 H
Alkaline Phosphatase 93
Vital Signs:
Vital Signs
Temp Pulse Resp BP Pulse Ox
97.7 F 75 14 109/57 96
11/15/24 07:22 11/15/24 11:36 11/15/24 11:36 11/15/24 12:42 11/15/24 09:02
I&O
11/14/24 11/15/24 11/16/24
06:59 06:59 06:59
Intake Total 780 / 780 1680 / 1680
Balance 780 / 780 1680 / 1680
Review of Systems
-
History Source: Patient
All other systems: Not reviewed unless documented
Physical Exam
-
General: No Apparent Distress
HEENT: Normocephalic
Respiratory: Wheezes (Mild expiratory)
GI: Soft, Nontender and Nondistended
Genito-urinary: No Costovertebral Tender
Musculoskeletal: No Clubbing, No Cyanosis and No Edema
Neuro: Awake, Alert, Oriented and AO x 3
Psych: Calm
Data Reviewed
-
Total Time Spent with Patient (in minutes): 55
Diagnostic Radiology: Image personally visualized and interpreted and Report Reviewed by me
Labs: Labs Reviewed by me
--- NOTE | 2024-11-15 13:47 | W.DS.TRANS ---
DC Summary - Tape Librarian
-
Discharge Instructions:
Discharge Diagnosis/Procedures Acute on chronic hypoxic respiratory failure 2/2
combined HFrEF and COPD exacerbation
Flu A
Diet Low Cholesterol,Low Fat
Activity As tolerated
Blood Work cbc and bmp in 3-5 days with PCP
Instructions:
Stand-Alone Forms:
Changes to Home Medications: Yes
Discharge Medications:
DC Medications w/original date entered in [facility]
furosemide 40 mg tablet 20 mg PO DAILY Fluid Retention/Swelling 02/20/24
melatonin 5 mg tablet 10 mg PO HSPRN PRN sleep 06/22/24
guaifenesin 600 mg tablet, extended release 12 hr 600 mg PO Q12H Lung/breathing issues 08/01/24
loratadine 10 mg tablet (Claritin) 10 mg PO DAILY Allergies 10/08/24
aspirin 81 mg chewable tablet 81 mg PO DAILY #30 tabs 10/22/24
metoprolol succinate 25 mg tablet,extended release 24 hr 25 mg PO HS #30 tabs 10/22/24
oxycodone 5 mg tablet 5 mg PO Q6HPRN PRN severe pain #10 tabs 10/22/24
acetaminophen 325 mg tablet 650 mg (2 x 325 mg) PO Q4HPRN PRN mild pain or temp >/= 100.4 F #0 tabs 11/15/24
budesonide 0.5 mg/2 mL suspension for nebulization 0.5 mg (2 mL) inhalation R BID #60 mL 11/15/24
bupropion HCl 150 mg 24 hr tablet, extended release 150 mg PO DAILY #0 tabs 11/15/24
calcium 500 mg (as carbonate)-vitamin D3 5 mcg (200 unit) tablet (Oyster Shell Calcium-Vitamin D3) 2 tab PO DAILY 30 days #60 tabs 11/15/24
folic acid 1 mg tablet 1 mg PO DAILY #30 tabs 11/15/24
ipratropium 0.5 mg-albuterol 3 mg (2.5 mg base)/3 mL nebulization soln 3 ml inhalation R Q4HPRN PRN shortness of breath/wheezing #180 mL 11/15/24
ipratropium 0.5 mg-albuterol 3 mg (2.5 mg base)/3 mL nebulization soln 3 ml inhalation R QID #180 mL 11/15/24
multivitamin with folic acid 400 mcg tablet (Tab-A-Ten) 1 tab PO DAILY #30 tabs 11/15/24
prednisone 10 mg tablet See Rx Instructions .Route .COMPLEX #30 tabs 11/15/24
sertraline 50 mg tablet 50 mg PO DAILY 30 days #30 tabs 11/15/24
thiamine HCl (vitamin B1) 100 mg tablet 100 mg PO BID #60 tabs 11/15/24
Home Medication Changes
calcium 500 mg (as carbonate)-vitamin D3 5 mcg (200 unit) tablet (Oyster Shell Calcium-Vitamin D3) 2 tab PO DAILY 30 days #60 tabs 11/15/24
folic acid 1 mg tablet 1 mg PO DAILY #30 tabs 11/15/24
ipratropium 0.5 mg-albuterol 3 mg (2.5 mg base)/3 mL nebulization soln 3 ml inhalation R Q4HPRN PRN shortness of breath/wheezing #180 mL 11/15/24
ipratropium 0.5 mg-albuterol 3 mg (2.5 mg base)/3 mL nebulization soln 3 ml inhalation R QID #180 mL 11/15/24
multivitamin with folic acid 400 mcg tablet (Tab-A-Ten) 1 tab PO DAILY #30 tabs 11/15/24
prednisone 10 mg tablet See Rx Instructions .Route .COMPLEX #30 tabs 11/15/24
sertraline 50 mg tablet 50 mg PO DAILY 30 days #30 tabs 11/15/24
thiamine HCl (vitamin B1) 100 mg tablet 100 mg PO BID #60 tabs 11/15/24
Pending Results: No
[2024-11-15 15:27] VITALS: BP 96/74
== END 2024-11-15 17:28 | disposition home health service (06) | DRG 871 ==
LOC: 3 WEST ACU 09:51
PROVIDERS: Internal Medicine; Internal Medicine Critical Care Medicine; Physician Assistant; ADMITTING PHYSICIAN Internal Medicine; ATTENDING PHYSICIAN Internal Medicine; CONSULT PHYSICIAN Internal Medicine Cardiovascular Disease; CONSULT PHYSICIAN Internal Medicine Critical Care Medicine; CONSULT PHYSICIAN Psychiatry & Neurology Psychiatry; CONSULT PHYSICIAN Surgery; EMERGENCY PHYSICIAN Emergency Medicine; FAMILY PHYSICIAN Family Medicine
PROC: 5A09357 Assistance with Respiratory Ventilation, Less than 24 Consecutive Hours, Continuous Positive Airway Pressure (ICD-10-PCS; 2024-11-09)
DX: A41.9 Sepsis, unspecified organism (principal); I50.23 Acute on chronic systolic (congestive) heart failure; J96.21 Acute and chronic respiratory failure with hypoxia; I13.0 Hypertensive heart and chronic kidney disease with heart failure and stage 1 through stage 4 chronic kidney disease, or unspecified chronic kidney disease; J44.1 Chronic obstructive pulmonary disease with (acute) exacerbation; J44.0 Chronic obstructive pulmonary disease with (acute) lower respiratory infection; M80.08XA Age-related osteoporosis with current pathological fracture, vertebra(e), initial encounter for fracture; N17.9 Acute kidney failure, unspecified; E87.1 Hypo-osmolality and hyponatremia; N18.32 Chronic kidney disease, stage 3b; Z99.81 Dependence on supplemental oxygen; I08.0 Rheumatic disorders of both mitral and aortic valves; F32.A Depression, unspecified; F41.9 Anxiety disorder, unspecified; M54.30 Sciatica, unspecified side; E66.01 Morbid (severe) obesity due to excess calories; Z68.27 Body mass index [BMI] 27.0-27.9, adult; G47.33 Obstructive sleep apnea (adult) (pediatric); Z90.49 Acquired absence of other specified parts of digestive tract; Z87.891 Personal history of nicotine dependence; Z88.0 Allergy status to penicillin; Z79.82 Long term (current) use of aspirin; Z79.899 Other long term (current) drug therapy; Z79.52 Long term (current) use of systemic steroids; I25.10 Atherosclerotic heart disease of native coronary artery without angina pectoris; Z66 Do not resuscitate; J43.9 Emphysema, unspecified; D63.1 Anemia in chronic kidney disease; D72.10 Eosinophilia, unspecified; E78.00 Pure hypercholesterolemia, unspecified; M48.00 Spinal stenosis, site unspecified; N20.0 Calculus of kidney; Z87.81 Personal history of (healed) traumatic fracture; Z11.52 Encounter for screening for COVID-19; J10.1 Influenza due to other identified influenza virus with other respiratory manifestations
CPT/HCPCS: 36600; 71045; 71250; 73590; 80048; 80053; 80202; 81003; 82306; 82607; 82746; 82805; 82962; 83036; 83605; 83735; 83880; 84145; 84443; 84484; 85025; 85027; 87040; 87070; 87147; 87186; 87205; 87502; 87811; 93005; 94640; 97116; 97163; 97166; 97530; 99285

== ENCOUNTER 2025-04-23 07:52 | Inpatient (IN) | payer MEDICARE, SELFPAY ==
[2025-04-21 21:35] VITALS: BMI 30.9
[2025-04-21 21:37] VITALS: BP 145/77
--- NOTE | 2025-04-21 22:05 | ED.GENMED ---
History of Present Illness
General
Chief Complaint: Breathing Problem
Source: patient
Time Seen by Provider: 04/21/25 21:53
History of Present Illness
History of Present Illness:
Note:
CHIEF COMPLAINT(S)
- Shortness of breath and weight gain over the past few days.
HISTORY OF PRESENT ILLNESS
The patient is a 74-year-old female with a history of congestive heart failure presenting with worsening dyspnea, particularly when lying flat, over the past few days. She reported a significant weight gain of three pounds overnight and described
feeling very wheezy and shaky, saying she just feels 'like crap.' The patient has been tracking her weight due to her chronic condition and noted these changes recently. She is always propped up due to shortness of breath when lying flat and noticed
an exacerbation of symptoms in the past few days. The patient wears three liters of oxygen at home and has a known history of heart problems. Despite her reluctance, she sought medical help due to her worsening condition and awareness of her heart
failure history. She reported having been in the hospital multiple times, including a significant 14-day hospital stay followed by rehabilitation. Currently, she is staying at her daughters home, visiting from [place]. She regularly receives nursing
care, such as blood checks and bath assistance. Her Lasix dosage was recently adjusted, and she is compliant with a low sodium diet. She has used multiple breathing treatments at home, although she reports feeling a bit short of breath currently.
SOCIAL DETERMINANTS AFFECTING HEALTH
The patient is currently staying with her daughter and receives regular visits from healthcare providers for assistance with bathing and monitoring her condition. She follows a low sodium diet diligently as part of her heart failure management plan.
CHRONIC MEDICAL CONDITIONS SIGNIFICANTLY AFFECTING CARE
- Congestive Heart Failure
- Chronic Obstructive Pulmonary Disease
PHYSICAL EXAM
- Nursing notes reviewed, and vital signs assessed.
- On auscultation, there was no wheezing noted during this visit, although the patient reported hearing wheezing earlier this morning.
- Heart rhythm is regular without any murmur.
- Legs show no edema.
- Neurological assessment indicates non-focal findings, and cranial nerves are intact.
- No signs of respiratory distress.
- Skin is warm and dry.
- Pulse oximetry reads 89% on 3 liters of oxygen.
PLAN
- Obtain laboratory tests, including specific labs to evaluate heart failure.
- Perform a chest X-ray.
- Review previous medical records for further insight into her cardiac condition.
DIFFERENTIAL DIAGNOSIS
The Differential Diagnosis includes, in no particular order and is not limited to:
1. Exacerbation of Congestive Heart Failure
2. Fluid Overload
3. Chronic Obstructive Pulmonary Disease exacerbation
4. Pulmonary Edema
5. Acute coronary syndrome
6. Sleep apnea
7. Renal insufficiency
8. Medication side effects
9. Hypertension
10. Respiratory infection
CARE-UPDATE
04/22/25 - 00:34
Patient reports feeling a bit short of breath with a sensation of racing heart and chest tightness. There are no infiltrates noted. Patient expressed feeling unwell and expressed a desire to go home. She remains concerned about her symptoms
persisting into the weekend.
Disposition:
DIAGNOSIS
- Acute exacerbation of COPD (ICD-10: J44.1)
- Chronic renal insufficiency (ICD-10: N18.9)
- Acute decompensated heart failure (ICD-10: I50.31)
SUMMARY OF ENCOUNTER
The patient, a 75-year-old female with a long history of congestive heart failure and COPD, was seen due to worsening shortness of breath and a sensation of a racing heart. Recent adjustments to her heart failure medications and a significant weight
gain were noted. Although initially considered for outpatient management, the patients persistent symptoms and extensive medical history warranted admission for closer monitoring and treatment.
CONSIDERATION FOR ADMISSION
Consideration for admission was made due to her ongoing shortness of breath and significant medical history necessitating intervention with IV diuretics, steroids, and bronchodilators.
ASSESSMENT
The patient presents with an acute exacerbation of COPD, chronic renal insufficiency, and acute decompensated heart failure, supported by observed symptoms, lab results, and medical history.
INDEPENDENT INTERPRETATION OF TESTS
- My independent interpretation of the lab results reveals anemia with a hemoglobin of 9.9, which is slightly lower than the patients baseline of 11 or 12.
- My independent interpretation of previous labs confirms that the creatinine level of 1.5 is consistent with the patients baseline.
MEDICAL DECISION MAKING
Number and Complexity of Problems Addressed:
The patient presented with exacerbations of her chronic conditions, including COPD and heart failure, alongside chronic renal insufficiency. The variety of potential diagnoses highlights the complexity of the case.
Data:
The presented lab results and the patients extensive medical history, including prior cardiology notes, informed the decision-making process. Lab interpretations were utilized to validate concerns regarding renal function and anemia.
Risk:
Given the patients severe symptoms and medical history, the decision to admit was influenced by the need for intravenous medication administration. Social determinants, such as her need for home oxygen and reliance on others for care, were
evaluated. The potential risk of hospitalization due to her acute symptoms was considered in making the decision for admission.
Past History
Past History
ED Past Medical History: CHF, COPD (2-3 liters NC), Psychiatric (Anxiety, Depression, ) and Other (Spinal stenosis, morbid obesity, Bilateral kidney stones, Ulcers, Sleep apnea, Shingles, )
ED Past Surgical History: Cholecystectomy, Orthopedic (Left shoulder reconstruction. ), Urological (Kidney surgery) and Other (Fasciotomy for fasciitis with wound VAC of lower back and thigh)
Social History
Tobacco: Former smoker
Alcohol: None
Drug: None
Personal:
Living: alone
Employment: Retired
Family History
Family History: Other (Noncontributory)
Phy Exam
Physical Exam
Physical Exam:
.
Scores
Heart Failure Risk
Heart Failure Risk Score: Yes
History of Stroke or TIA: No
History of intubation for respiratory distress: No
Heart rate on ED arrival >/= 110: No
SaO2 <90% on arrival on room air: Yes
HR >/=110 during 3min walk test (or too ill to perform test): Yes
ECG has acute ischemic changes: No
Urea >/=12mmol/L (BUN 33.6mg/dL): No
Serum CO2>/=35mmol/L: No
Troponin I or T elevated to HI Level (0.4mg/dL): No
NT-proBNP >/=5,000ng/L (5,000pg/ml): No
HF Risk Score: 3
Admission Status: HIGH RISK 15.9% Consider SNF treatment or admission to hospital
Course
Orders/Labs/Results
Orders:
Orders
04/21/25 21:41
Electrocardiogram (*1) Urgent
Reason for Study: Shortness of Breath
04/21/25 21:42
EKG- Treatment ONCE
04/21/25 22:05
Complete Blood Count/With Diff Urgent
Comprehensive Metabolic Panel Urgent
Pro-BNP [NT-proBNP] Urgent
04/21/25 22:34
CR Chest - 2 Views Urgent
Comment:
Reason For Exam: sob
04/21/25 23:31
Furosemide [Lasix] 20 mg IV NOW STA
Ipratropium/Albuterol Sulfate [Duoneb] 3 ml INH R NOW STA
04/22/25 00:32
Dexamethasone Sod Phosphate [Decadron] 10 mg IV NOW STA
Abnormal Lab Results
04/21/25
22:05
WBC 11.5 H 10^3/uL
(4.8-10.8)
RBC 3.59 L 10^6/uL
(4.20-5.40)
Hgb 9.9 L g/dL
(12.0-16.0)
Hct 32.2 L %
(37.0-47.0)
MCHC 30.7 L g/dL
(33.0-37.0)
Absolute Neuts (auto) 8.0 H 10^3/uL
(1.4-6.5)
Absolute Monos (auto) 0.9 H 10^3/uL
(0.1-0.6)
Lymphocytes % 17.8 L %
(20.5-51.1)
Chloride 108 H mmol/L
(98-107)
BUN 24 H mg/dl
(7-17)
Creatinine 1.5 H mg/dL
(0.6-1.0)
Glucose 119 H mg/dl
(70-99)
04/21/25 22:05
04/21/25 22:05
Vital Signs
Initial and Last Documented VS:
Initial Vital Signs
Temp Pulse Resp BP Pulse Ox
97.5 F 102 20 145/77 91
04/21/25 21:37 04/21/25 21:37 04/21/25 21:37 04/21/25 21:37 04/21/25 21:37
Last Documented Vital Signs
Temp Pulse Resp BP Pulse Ox
97.5 F 94 22 136/64 84
04/21/25 21:37 04/21/25 23:45 04/21/25 23:45 04/21/25 23:09 04/21/25 23:45
*Pulse Oximetry
Patient hypoxic: yes (89% on 3L)
*Critical Care Note
Total Time (30-74mins, 75-104mins- exclusive of procedures): Not Applicable
ED Attending Note
-
Portions of this chart may have been created with voice recognition software.� Occasional wrong word or��sound alike� substitutions may have occurred due to the inherent limitations of voice recognition software.
Discharge Plan
Departure
Patient Disposition: Admit
Date of Disposition: 04/22/25
Time of Disposition: 00:38
Admit to: Telemetry
Presentation/result/management discussed w/ accepting MD/DO: Hospitalist
Discharge Problem:
COPD (chronic obstructive pulmonary disease), SOB (shortness of breath)
Prescriptions:
No Action
furosemide 40 mg tablet
20 mg PO DAILY
melatonin 5 mg tablet
10 mg PO HSPRN PRN (Reason: sleep)
guaifenesin 600 mg tablet extended release 12hr
600 mg PO Q12H
loratadine [Claritin] 10 mg Tablet
10 mg PO DAILY
aspirin 81 mg Tablet,Chewable
81 mg PO DAILY Qty: 30 0RF
metoprolol succinate 25 mg Tablet Extended Release 24 Hr
25 mg PO HS Qty: 30 0RF
Rx Instructions:
*New medication*
oxycodone 5 mg Tablet
5 mg PO Q6HPRN PRN (Reason: severe pain) Qty: 10 0RF
Rx Instructions:
11/15/24: filled oxycodone 5mg tablets #8/2 day supply on 10/22/24 at [facility]
ipratropium-albuterol 0.5 mg-3 mg(2.5 mg base)/3 mL Solution For Nebulization
3 ml inhalation R Q4HPRN PRN (Reason: shortness of breath/wheezing) Qty: 180 0RF
acetaminophen 325 mg Tablet
650 mg PO Q4HPRN PRN (Reason: mild pain or temp >/= 100.4 F) Qty: 0 0RF
sertraline 50 mg Tablet
50 mg PO DAILY 30 Days Qty: 30 0RF
bupropion HCl 150 mg Tablet Extended Release 24 Hr
150 mg PO DAILY Qty: 0 0RF
calcium carbonate-vitamin D3 [Oyster Shell Calcium-Vit D3] 500 mg-5 mcg (200 unit) Tablet
2 tab PO DAILY 30 Days Qty: 60 0RF
ipratropium-albuterol 0.5 mg-3 mg(2.5 mg base)/3 mL Solution For Nebulization
3 ml inhalation R QID Qty: 180 0RF
budesonide 0.5 mg/2 mL Suspension For Nebulization
0.5 mg inhalation R BID Qty: 60 0RF
thiamine HCl (vitamin B1) 100 mg Tablet
100 mg PO BID Qty: 60 0RF
multivitamin with folic acid [Tab-A-Ten] 400 mcg Tablet
1 tab PO DAILY Qty: 30 0RF
folic acid 1 mg Tablet
1 mg PO DAILY Qty: 30 0RF
prednisone 10 mg Tablet
See Rx Instructions .ROUTE .COMPLEX Qty: 30 0RF
Rx Instructions:
Take By Mouth:
40 mg daily x3 days, 30 mg daily x3 days,
20 mg daily x3 days, 10 mg daily x3 days.
Referrals:
Ant Diaz DO [Family Provider, Family Practice]
Interventions
Interventions:
*Risk Screen - Suicide Last Done: 04/21/25 21:40
*General Assessment Last Done: 04/21/25 21:40
*Neglect/Abuse Screening Last Done: 04/21/25 21:40
*ED COVID-19 Vaccine History Last Done: 04/21/25 21:40
ED- Cardiac Assessment Last Done: 04/21/25 22:32
ED- Pulmonary Assessment Last Done: 04/21/25 22:32
Discharge Date and Time
Print Language: ICELANDIC
[2025-04-21 22:19] LABS: % Basophils 0.6 % (0-2); % Eosinophils 3.8 % (0-6); % Immature Granulocytes 0.3 % (0-0.5); % Lymphocytes 17.8 % (20.5-51.1); % Monocytes 8.1 % (1.7-9.3); % Neutrophils 69.4 % (42.2-75.2); Absolute Basophils 0.1 10^3/uL (0-0.2); Absolute Eosinophils 0.4 10^3/uL (0-0.7); Absolute Monocytes 0.9 10^3/uL (0.1-0.6); Hematocrit 32.2 % (37.0-47.0); Hemoglobin 9.9 g/dL (12.0-16.0); Mean Corp Hgb Conc. 30.7 g/dL (33.0-37.0); Mean Corpuscular Hgb 27.6 pg (27.0-31.0); Mean Corpuscular Volume 89.7 fL (81.0-99.0); Mean Platelet Volume 9.3 fL (7.4-10.4); Nucleated Red Blood Cells % 0 %; Platelet Count 356 10^3/uL (130-400); Red Blood Cell Count 3.59 10^6/uL (4.20-5.40); Red Cell Dist. Width 14.5 % (11.5-14.5); White Blood Cell Count 11.5 10^3/uL (4.8-10.8)
[2025-04-21 22:41] LABS: ALT (SGPT) 13 U/L (0-35); AST (SGOT) 17 U/L (14-36); Albumin 3.5 g/dl (3.5-5.0); Alkaline Phosphatase 102 U/L (38-126); Blood Urea Nitrogen 24 mg/dl (7-17); Calcium 9.4 mg/dl (8.4-10.2); Carbon Dioxide 27 mmol/L (22-30); Chloride 108 mmol/L (98-107); Estimated Creatinine Clearance 39 ml/min; Glucose 119 mg/dl (70-99); Sodium 140 mmol/L (135-145); Total Bilirubin 0.2 mg/dl (0.2-1.3); Total Protein 6.5 g/dl (6.3-8.2); eGFR 36.34
[2025-04-21 22:51] LABS: NT-proBNP 589 pg/ml
[2025-04-21 23:09] VITALS: BP 136/64
[2025-04-21] MEDS: DUONEB 3 ML INH (23:40)
[2025-04-21] MEDS: LASIX 20 MG IV (23:40)
[2025-04-22] VITALS (8 sets, daily range): BP systolic 113–159; BP diastolic 60–74; BMI 29.5
[2025-04-22] MEDS: DECADRON 10 MG IV (00:46)
--- NOTE | 2025-04-22 01:07 | HPS.HSE ---
Family Physician
-
Family Physician: Ant Diaz
Chief Complaint
-
Shortness of breath
History of Present Illness
This is a 75-year-old female with past medical history of COPD on 3 L home O2 and on chronic prednisone now on 10 mg, CHF with decreased EF, mild to moderate aortic and mitral stenosis, obstructive sleep apnea not on CPAP, obesity presenting to the
emergency department with weight gain and shortness of breath.
Patient reported that over the last 1 week she has been having increasing shortness of breath and dyspnea on exertion compared to her baseline. She has not increased her oxygen requirements. She denies orthopnea or PND. She denies any lower
extremity swelling. She reported that she gained about a pound over a week which is unusual for her. However over the last 24 hours she has gained 3 pounds which became very concerning for her. In the meantime she called here as a wheeze mom.
She reports a chronic cough that is unchanged. It is productive of yellow sputum. She has not had any fevers or chills. She denies any sick contacts.
She stated that about 1 week ago she had a increase of Lasix from 5 mg daily to 10 mg. She is now back down to 5 mg but has no improvement in symptoms.
On arrival in the emergency department she was satting 93% on her home 3 L. She was afebrile. Blood pressure was 136/64 with a pulse rate of 94. Chest x-ray was similar to prior with some bibasilar interstitial markings but no focal infiltrates
noted. ECG with sinus rhythm rate of 96 and nonischemic. BNP elevated to 590.
Electrolytes unremarkable with baseline BUN/creatinine of 20 and 1.5. Her bicarb is 27.
CBC was unremarkable with a hemoglobin of 9.9 which is close to baseline.
Medical History
Past Medical History
Past Medical History: Reports Other
Additional Past Medical History:
CHF
Chronic Hypoxic Respiratory Insufficiency
COPD
Chronic HFpEF
Valvular Heart Disease: Mild Aortic Stenosis, Mild/Moderate Mitral Regurg
CKD Stage III
Chronic Back Pain secondary to L2 Compression Fracture
Anxiety/Depression
Morbid Obesity
Obstructive Sleep Apnea
Past Surgical History: Reports Other
Additional Past Surgical History:
Cholecystectomy
Left Shoulder Reconstruction
Fasciotomy
Social History
Tobacco: Former Smoker
Alcohol: None
Drug: None
Living: With Family
Employment: Retired
Family History
Family History: Not pertinent
Allergies / Home Medications
Allergies reflects when Allergies were last updated in [employer].
Home Medications with original date entered in [employer]
Allergy/Medication List:
Allergies
Allergy/AdvReac Type Severity Reaction Status Date / Time
ampicillin Allergy Hives Verified 10/05/24 19:40
coconut Allergy Hives Verified 10/05/24 19:40
mustard Allergy Hives Verified 10/05/24 19:40
Home Medications
albuterol sulfate 90 mcg/actuation aerosol inhaler 2 puff inhalation R Q4HPRN PRN sob/wheezing 12/29/22
Trelegy�Oral inhalation:�1 inhalation once daily�
albuterol sulfate 2.5 mg/3 mL (0.083 %) solution for nebulization 2.5 mg inhalation R Q4HPRN PRN sob 04/17/24
guaifenesin 600 mg tablet, extended release 12 hr 600 mg PO Q12H Lung/breathing issues 08/01/24
sertraline 50 mg tablet 50 mg PO DAILY Depression 08/01/24
loratadine 10 mg tablet (Claritin) 10 mg PO DAILY Allergies 10/08/24
aspirin 81 mg chewable tablet 81 mg PO DAILY #30 tabs 10/22/24
metoprolol succinate 25 mg tablet,extended release 24 hr 25 mg PO HS #30 tabs 10/22/24
Prednisone 10 mg tablet, 10 mg p.o. daily
Bupropion 150 mg tablet, 150 mg p.o. daily
Review of Systems
-
History Source: Patient
Constitutional: Reports Weight Gain
EENT: Reports No Symptoms
Respiratory: Reports Trouble Breathing and Other (wheezing)
Cardiac: Reports No Symptoms
Abdomen/GI: Reports No Symptoms
: Reports No Symptoms
Musculoskeletal: Reports No Symptoms
Skin: Reports No Symptoms
Neurological: Reports No Symptoms
Endocrine: Reports No Symptoms
Hematologic/Lymphatic: Reports No Symptoms
Psych: Reports No Symptoms
Physical Exam
Vital Signs
Vital Signs
Temp Pulse Resp BP Pulse Ox
97.5 F 94 22 136/64 84
04/21/25 21:37 04/21/25 23:45 04/21/25 23:45 04/21/25 23:09 04/21/25 23:45
Physical Exam
General: Well Developed, Well Nourished and No Apparent Distress
HEENT: NormoCephalic, Moist mucous membranes, Atraumatic and Oxygen
Respiratory: Wheezes, Crackles, Non Labored Respirations and Decreased Breath Sounds
Cardiac: S1/S2 and Regular Rhythm; No Murmur or Rub
GI: Soft, Non Tender, Non Distended and Normal Bowel Sounds; No Organomegaly
Rectal: Deferred by Provider
Musculoskeletal: No Clubbing, No Cyanosis and No Edema
Skin: No Rash
Neuro: Nonfocal/grossly intact
Hematologic/Lymphatic: No Lymphadenopathy
Psych: Calm
Laboratory Results
-
04/21/25 22:05
04/21/25 22:05
Laboratory Results
Total Bilirubin 0.2 mg/dl (0.2-1.3) 04/21/25 22:05
AST 17 U/L (14-36) 04/21/25 22:05
ALT 13 U/L (0-35) 04/21/25 22:05
Alkaline Phosphatase 102 U/L (38-126) 04/21/25 22:05
Data Reviewed
-
Diagnostic Radiology: Image Personally Visualized and interpreted
Medical Tests (Nuc Med, Echo, EKG etc): Image Personally Visualized and interpreted
Lab Data: Labs Reviewed by me
Old Records: Reviewed
Impression/Plan
-
IMPRESSION:
75-year-old with past medical history significant for COPD on home O2 and chronic prednisone, CHF with reduced EF, presenting to the emergency department with acute weight gain over the last few days and 3 pounds overnight complaining of increased
dyspnea on exertion and shortness of breath. She has a cough that is unchanged from prior. She has increased wheezing. Chest x-ray shows mild interstitial infiltrates in the lower lobes. Exam reveals bibasilar crackles up to the mid lungs as
well as tightness and wheezing. She has a cough that is productive of yellow phlegm which is unchanged from prior. She is afebrile and has no leukocytosis. She has no peripheral edema but reports that with her CHF exacerbation she never gets
peripheral edema. BNP is elevated. Suspect CHF exacerbation that is triggering some bronchospasms and a COPD exacerbation. She is on chronic home O2 of 3 L satting 92 to 95%.
PLAN:
CHF exacerbation -mild to moderate CHF exacerbation with associated wheezing, unchanged hypoxia
- Admit to telemetry observation
- Lasix 20 mg IV twice daily (had good initial response to IV Lasix 20 mg in the ED)
- Daily weights and ins and outs
- Salt restriction
- 2 L fluid restriction
- Continue metoprolol succinate
- Respiratory cardiogram, last echo with a LVEF 35-40%. Global hypokinesis. Normal RV size and function.
- Check TSH
- Cardiology consult
COPD -she does have some tightness of the airways with increased wheezing throughout the lung mejia. Cough production is unchanged from prior and she does not have any significant cough paroxysmal. No signs of acute infection
- Hold off antibiotic
- Step up prednisone to 40 mg and taper back down to 10 mg slowly
- DuoNebs RTC
- Albuterol every 3 hours as needed
- Continue Trelegy
Obstructive sleep apnea�noncompliant with CPAP does not wear, no signs of acute retention at this time
-Oxygen
- Monitor serum CO2
Anxiety/depression
- Continue sertraline
- Continue Wellbutrin
-
[2025-04-22] MEDS: VENTOLIN NEBULES 2.5 MG INH ×3 (03:27→23:58)
[2025-04-22] MEDS: TYLENOL 650 MG PO ×2 (04:00→17:52)
--- NOTE | 2025-04-22 04:19 | PTCARENOTE ---
Patient received from ED via stretcher. She stool with ax1 to scale and then bed. She had labored breathing and SOB with desat to 85% on 3lpm. She had audible exp wheezing. respiratory in with neb. She returned to 92-93% on 3lpm nasal cannula.
CHF Booklet given. She was oriented to room and surroundings. See nursing assessment for further physical findings.
[2025-04-22 06:24] LABS: Blood Urea Nitrogen 24 mg/dl (7-17); Calcium 9.6 mg/dl (8.4-10.2); Carbon Dioxide 28 mmol/L (22-30); Chloride 104 mmol/L (98-107); Estimated Creatinine Clearance 35 ml/min; Glucose 192 mg/dl (70-99); Potassium 4.8 mmol/L (3.5-5.1); Sodium 139 mmol/L (135-145); eGFR 33.42
--- NOTE | 2025-04-22 07:46 | W.PN.HOSP.TC ---
Today's Communication/Plan
-
Continue IV diuretics for another 24 hours.
Repeat echo pending
Assessment / Plan
Assessment / Plan
Impression:
75-year-old with past medical history significant for COPD on home O2 and chronic prednisone, CHF with reduced EF, presenting to the emergency department with acute weight gain over the last few days and 3 pounds overnight complaining of increased
dyspnea on exertion and shortness of breath. She has a cough that is unchanged from prior. She has increased wheezing. Chest x-ray shows mild interstitial infiltrates in the lower lobes. Exam reveals bibasilar crackles up to the mid lungs as
well as tightness and wheezing. She has a cough that is productive of yellow phlegm which is unchanged from prior. She is afebrile and has no leukocytosis. She has no peripheral edema but reports that with her CHF exacerbation she never gets
peripheral edema. BNP is elevated. Suspect CHF exacerbation that is triggering some bronchospasms and a COPD exacerbation. She is on chronic home O2 of 3 L satting 92 to 95%.
Assessment/plan:
Acute on chronic systolic CHF exacerbation -
mild to moderate CHF exacerbation
Seen by cardiology today, continue IV Lasix and switch to oral Lasix tomorrow
Daily weight.
Strict I's and O's.
Most recent echo 10/10/2024 shows :
Normal left ventricular size with moderately reduced systolic function. LVEF
35-40%. Global hypokinesis.
Normal RV size and function.
Repeat echo pending.
Acute COPD exacerbation
Chest x-ray showed Pulmonary vasculature is prominent but similar to prior study and may be related to chronic CHF. There is also a component of COPD.
Continue prednisone
- DuoNebs RTC
- Albuterol every 3 hours as needed
- Continue Trelegy
Obstructive sleep apnea�noncompliant with CPAP does not wear, no signs of acute retention at this time
-Oxygen
- Monitor serum CO2
CKD 4.
Creatinine stable
Anxiety/depression
- Continue sertraline
- Continue Wellbutrin
CODE STATUS: Full code
DVT prophylaxis: Lovenox
Diet: Cardiac with fluid restrictions.
Disposition: Continue IV diuretics for another 24 hours.
Repeat echo pending
Total time spent on today's encounter was 65 minutes which included time spent in counseling the patient/family regarding diagnosis and treatment plan as listed above, goals of care, and symptom management. Case was discussed with nursing staff,
specialists, and care coordinators/case management. All labs and imaging personally reviewed by me. Remainder the time spent in detailed review of previous records, lab data, imaging, and other medical provider documentation.
Anticipated Discharge: Within 24 hours
Subjective/Interval History
-
Date of Service: April 22, 2025
Patient seen and examined at bedside, denies any chest pain , shortness of breath Improved, no abdominal pain, no nausea, no vomiting, no diarrhea or constipation.
no lower extremity edema.
Objective Data
-
Labs:
Laboratory Results
04/21/25 04/22/25
22:05 05:20
WBC 11.5 H
Hgb 9.9 L
Hct 32.2 L
Plt Count 356
Sodium 140 139
Potassium 4.0 4.8
Chloride 108 H 104
Carbon Dioxide 27 28
BUN 24 H 24 H
Creatinine 1.5 H 1.6 H
Glucose 119 H 192 H
Calcium 9.4 9.6
Total Bilirubin 0.2
AST 17
ALT 13
Alkaline Phosphatase 102
Vital Signs:
Vital Signs
Temp Pulse Resp BP Pulse Ox
98.0 F 89 22 159/73 92
04/22/25 03:09 04/22/25 03:30 04/22/25 03:30 04/22/25 03:09 04/22/25 04:07
I&O
04/21/25 04/22/25 04/23/25
06:59 06:59 06:59
Output Total 900 / 900
Balance -900 / -900
Physical Exam
-
General: Well Developed, Well Nourished, No Apparent Distress and Comfortable
HEENT: Normocephalic, Atraumatic, Moist Mucous Membranes, No Ptosis, PERRLA and Nose Appears Normal
Respiratory: Rales, Rhonchi and Non Labored Respirations
Cardiac: Regular Rhythm and S1/S2
Breast: Deferred by me
GI: Soft, Nontender, Nondistended and Normal Bowel Sounds
Genito-urinary: No Costovertebral Tender
Musculoskeletal: No Clubbing, No Cyanosis and No Edema
Skin: Warm
Neuro: Awake, Alert, Oriented, AO x 3 and No Motor Deficits
Psych: Calm
Data Reviewed
-
Diagnostic Radiology: Image personally visualized and interpreted and Report Reviewed by me
CT Scan: Image personally visualized and interpreted and Report Reviewed by me
Ultrasound: Image personally visualized and interpreted and Report Reviewed by me
MRI: Image personally visualized and interpreted and Report Reviewed by me
Medical Tests (Nuc Med, Echo etc): Image personally visualized and interpreted and Report Reviewed by me
Labs: Labs Reviewed by me
Old Records: Reviewed
[2025-04-22] MEDS: SYMBICORT 160/4.5 MCG INHALER 2 PUFF INH ×2 (08:00→19:50)
[2025-04-22] MEDS: DUONEB 3 ML INH ×4 (08:00→19:50)
--- NOTE | 2025-04-22 08:12 | CON.CAR ---
Addendum entered and electronically signed by Erasmo Kidd MD 04/22/25 10:41:
I saw and examined the patient.
The CASEWORKER INTAKE's note was reviewed and I agree with the note.
Comment:
75-year-old female with HFrEF (EF 35-40%) due to NICM, LFLG , moderate AR/MR who presents with weight gain and mild dyspnea. She states that her weight has been slowly creeping up over the past couple of weeks but then she gained 3 pounds rapidly
and asked her daughter to take her to the hospital. Palliative care has been titrating her outpatient Lasix and had decreased the dose due to frequent urination. Prior to admission she was taking Lasix 5 mg daily. She feels better since
admission. She got Lasix 20 mg IV yesterday and this morning. Her weight today is 87 kg and notably was 86 kg at time of RHC in October 2024 with PCWP 16 mmHg. BNP this admission 589 (previously 2860).
Physical exam notable for RRR, no murmurs, crackles at bilateral lung bases, no lower extremity edema.
Mild HFrEF exacerbation. She is not far from her dry weight (86 kg). We will continue IV Lasix 20 mg twice daily. I suspect she will be euvolemic in the next day or 2. Continue to monitor labs, I/Os, and weight. Her GDMT has been limited by
hypotension, CKD, and cost. Continue metoprolol.
Original Note:
Consultation
Consultation Request
Date/Time Consultation Requested: 04/22/2025 02:50
Date/Time Consultation Performed: 04/22/2025 08:10
Requesting Provider: Dr. Palomino
Performing Provider: JOSEFINA Mabry for Dr. Kidd
Reason for Consultation: Shortness of breath
Medical History
-
Chief Complaint: Shortness of breath
History of Present Illness:
Flory Gregg is a 75 year old with HFrEF (EF 65-40%), NICM, moderate aortic regurgitation, mild low-flow low gradient aortic stenosis, moderate mitral regurgitation, & steroid dependent COPD who presented with shortness of breath. She endorses
associated weight gain. She gained 3 pounds overnight. Her furosemide dose has been slowly lowered. She was on 20 mg and was complaining of frequency and incontinence and it was lowered to 10 mg. She has been currently taking 5 mg for
approximately 5 days and had weight gain with associated shortness of breath. She denies PND and orthopnea. She has not required any extra oxygen while at home.
Past Medical History
Past Medical History: CHF (HFrEF), COPD, HTN and Valvular Disease (mild LFLG , mod AR, mod MR)
Past Surgical History: Cholecystectomy and Orthopedic
Social History
Tobacco: Former Smoker
Living: With Family (Daughter)
Employment: Retired
Family History
Family History: Reviewed & Not Pertinent
Allergies / Home Medications
Allergy/AdvReac Type Severity Reaction Status Date / Time
ampicillin Allergy Hives Verified 10/05/24 19:40
coconut Allergy Hives Verified 10/05/24 19:40
mustard Allergy Hives Verified 10/05/24 19:40
�Medication �Instructions �Recorded �Confirmed �Type
furosemide 40 mg tablet 20 mg PO DAILY Fluid 02/20/24 11/15/24 History
Retention/Swelling
melatonin 5 mg tablet 10 mg PO HSPRN PRN sleep 06/22/24 11/15/24 History
guaifenesin 600 mg tablet, 600 mg PO Q12H Lung/breathing 08/01/24 11/15/24 History
extended release 12 hr issues
loratadine 10 mg tablet (Claritin) 10 mg PO DAILY Allergies 10/08/24 11/15/24 History
aspirin 81 mg chewable tablet 81 mg PO DAILY #30 tabs 10/22/24 11/15/24 Rx
metoprolol succinate 25 mg 25 mg PO HS #30 tabs 10/22/24 11/15/24 Rx
tablet,extended release 24 hr
oxycodone 5 mg tablet 5 mg PO Q6HPRN PRN severe pain #10 10/22/24 11/15/24 Rx
tabs
acetaminophen 325 mg tablet 650 mg (2 x 325 mg) PO Q4HPRN PRN 11/15/24 Rx
mild pain or temp >/= 100.4 F #0
tabs
budesonide 0.5 mg/2 mL suspension 0.5 mg (2 mL) inhalation R BID #60 11/15/24 Rx
for nebulization mL
bupropion HCl 150 mg 24 hr tablet, 150 mg PO DAILY #0 tabs 11/15/24 Rx
extended release
calcium 500 mg (as 2 tab PO DAILY 30 days #60 tabs 11/15/24 Rx
carbonate)-vitamin D3 5 mcg (200
unit) tablet (Oyster Shell
Calcium-Vitamin D3)
folic acid 1 mg tablet 1 mg PO DAILY #30 tabs 11/15/24 Rx
ipratropium 0.5 mg-albuterol 3 mg 3 ml inhalation R Q4HPRN PRN 11/15/24 Rx
(2.5 mg base)/3 mL nebulization shortness of breath/wheezing #180
soln mL
ipratropium 0.5 mg-albuterol 3 mg 3 ml inhalation R QID #180 mL 11/15/24 Rx
(2.5 mg base)/3 mL nebulization
soln
multivitamin with folic acid 400 1 tab PO DAILY #30 tabs 11/15/24 Rx
mcg tablet (Tab-A-Ten)
prednisone 10 mg tablet See Rx Instructions .Route 11/15/24 Rx
.COMPLEX #30 tabs
sertraline 50 mg tablet 50 mg PO DAILY 30 days #30 tabs 11/15/24 Rx
thiamine HCl (vitamin B1) 100 mg 100 mg PO BID #60 tabs 11/15/24 Rx
tablet
Review of Systems
-
History Source: Patient
All other systems: Negative unless noted
Constitutional: Weight Gain and Fatigue
EENT: No Symptoms
Respiratory: No Symptoms
Cardiac: No Symptoms
Abdomen/GI: No Symptoms
: No Symptoms
Musculoskeletal: No Symptoms
Skin: No Symptoms
Neurological: No Symptoms
Endocrine: No Symptoms
Hematologic/Lymphatic: No Symptoms
Physical Exam
Vital Signs
Temp Pulse Resp BP Pulse Ox
98.0 F 90 20 159/73 98
04/22/25 03:09 04/22/25 08:04 04/22/25 08:04 04/22/25 03:09 04/22/25 08:04
Lab Results
04/21/25 22:05
04/22/25 05:20
Qqo-Q-[id number] Pept 589 pg/ml 04/21/25 22:05
Physical Exam
General: Well Developed, Well Nourished, No Apparent Distress and Comfortable
HEENT: Normocephalic, Anicteric and Moist Mucous Membranes
Respiratory: Wheezes and Non Labored Respirations
Cardiac: S1/S2, Regular Rhythm and Murmur; Negative Peripheral Edema
Breast: Deferred by me
GI: Soft, Non Tender, Non Distended and Normal Bowel Sounds
Rectal: Deferred by Provider
Genito-urinary: No Costovertebral Tender
Musculoskeletal: No Cyanosis and No Edema
Skin: Warm and Dry
Neuro: AO x 3
Hematologic/Lymphatic: No Lymphadenopathy
Psych: Calm
Impression / Plan
-
I/P: 75F with HFrEF (EF 35-40%), NICM, moderate aortic regurgitation, mild low-flow low gradient aortic stenosis, moderate mitral regurgitation, & steroid dependent COPD who presented with shortness of breath.
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
HFrEF (LVEF 35-40%), nonischemic cardiomyopathy - acute on chronic
- Continue diuresis with furosemide 20 mg IV twice daily, likely oral diuretic tomorrow
- PCWP 16 at 86kg (10/19/2024)
- GDMT as tolerated
-LINDA/ARB/ARNI: She had hypotension with Entresto in the past
-SGLT2 inhibitor: Cost prohibitive
-Aldosterone agonist: Can consider as an outpatient
-Beta yin: Metoprolol succinate 25 mg
-Isosorbide/Hydralazine:�Not indicated
-ICD: Updated LVEF
- Heart failure education
- Echocardiogram today
Valvular heart disease
-Mild to moderate mitral regurgitation
-Mild low gradient aortic stenosis by TTE and RHC
-Moderate aortic regurgitation
CKD stage IIIb
- Follow with diuresis
Chronic hypoxic respiratory failure, on 3 L nasal cannula at baseline, in the setting of COPD
COPD, steroid-dependent
Fasting hyperglycemia, HbA1c pending
Chronic back pain
Palliative care, currently enrolled
Data Reviewed
-
EKG: Report Reviewed by me (Sinus rhythm with PACs)
Radiology: Report Reviewed by me (CXR: Pulmonary vasculature is prominent but similar to prior study and may be related to chronic CHF. There is also a component of COPD.)
Medical Tests (Nuc Med, Echo etc): Report Reviewed by me (Echocardiogram as above)
Labs: Labs Reviewed by me
Old Records: Reviewed
[2025-04-22] MEDS: MUCINEX 600 MG PO ×2 (08:45→20:48)
[2025-04-22] MEDS: LOW STRENGTH ASPIRIN 81 MG PO (08:45)
[2025-04-22] MEDS: LASIX 20 MG IV ×2 (08:45→17:30)
[2025-04-22] MEDS: ZOLOFT 50 MG PO (08:45)
[2025-04-22] MEDS: CLARITIN 10 MG PO (08:45)
[2025-04-22] MEDS: DELTASONE 60 MG PO (08:45)
[2025-04-22] MEDS: WELLBUTRIN XL (24 hour extended release) 150 MG PO (08:45)
[2025-04-22 10:34] LABS: Glycohemoglobin (HgbA1c) 5.4 % (4.0-5.6)
--- NOTE | 2025-04-22 16:08 | CM ---
CM reviewed chart and met with pt bedside in room 2136. VEL reviewed and copy given to pt.
Pt lives with her daughter and grandsons in daughter's home, 2 ABEL, first floor bed and bath.
Pt previously lived in [place] but has been with her daughter for 2 years.
Pt was receiving VN through [facility] prior to admission, states she is no longer receiving PT.
Pt privately pays for personal development educator who comes twice a week.
Has a walker, rollator and transport chair, Oxygen 3L NC continuously from [employer].
Pt has been to [facility] several times for STR in the past.
PCP: Ant Diaz
Pharm[facility]: [facility] [address] [facility] [place]
Discharge plan: Pending ongoing medical evaluation, pt hoping for home with services, pt is declining return to SNF at this time
[2025-04-22] MEDS: LOVENOX 40 MG SC (17:43)
[2025-04-22] MEDS: DESENEX/MITRAZOL/ZEASORB 1 APPLIC TOPICAL (20:48)
[2025-04-22] MEDS: TOPROL XL 25 MG PO (22:42)
[2025-04-23 03:11] VITALS: BP 107/49
[2025-04-23 05:27] VITALS: BMI 29.5
[2025-04-23 07:48] LABS: Blood Urea Nitrogen 37 mg/dl (7-17); Calcium 9.3 mg/dl (8.4-10.2); Carbon Dioxide 28 mmol/L (22-30); Chloride 103 mmol/L (98-107); Estimated Creatinine Clearance 33 ml/min; Glucose 91 mg/dl (70-99); Potassium 4.4 mmol/L (3.5-5.1); Sodium 139 mmol/L (135-145); eGFR 31.08
[2025-04-23] MEDS: DUONEB 3 ML INH ×3 (08:12→19:46)
[2025-04-23] MEDS: SYMBICORT 160/4.5 MCG INHALER 2 PUFF INH ×2 (08:13→19:46)
[2025-04-23 08:35] VITALS: BP 126/56
[2025-04-23] MEDS: LASIX IV (09:11)
--- NOTE | 2025-04-23 09:11 | VATNOTE ---
Left arm median cubital antecub IV access flushed easily. No sign of leaking or infiltrate.
[2025-04-23] MEDS: LOW STRENGTH ASPIRIN 81 MG PO (09:12)
[2025-04-23] MEDS: CLARITIN 10 MG PO (09:12)
[2025-04-23] MEDS: WELLBUTRIN XL (24 hour extended release) 150 MG PO (09:13)
[2025-04-23] MEDS: ZOLOFT 50 MG PO (09:13)
[2025-04-23] MEDS: MUCINEX 600 MG PO ×2 (09:13→19:44)
[2025-04-23] MEDS: DELTASONE 60 MG PO (09:13)
--- NOTE | 2025-04-23 09:13 | W.PN.CD ---
Today's Communication / Plan
-
Hold diuresis
Consider involving palliative care and/or pulmonary for dyspnea management
Impression / Plan
-
I/P: 75F with HFrEF (EF 35-40%), NICM, moderate aortic regurgitation, mild low-flow low gradient aortic stenosis, moderate mitral regurgitation, & steroid dependent COPD who presented with shortness of breath.
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
Dyspnea on exertion
- Persistent despite diuresis down to dry weight
- Consider palliative care or pulmonary consult for symptom management
HFrEF (LVEF 45-50%), nonischemic cardiomyopathy - acute on chronic
- Suspect she is now dry. She is at dry weight. BUN/Cr rising
- Hold diuresis today
- PCWP 16 at 190 lb (10/19/2024)
- GDMT as tolerated
-LINDA/ARB/ARNI: She had hypotension with Entresto in the past
-SGLT2 inhibitor: Cost prohibitive
-Aldosterone agonist: Can consider as an outpatient
-Beta yin: Metoprolol succinate 25 mg
-Isosorbide/Hydralazine:�Not indicated
-ICD: Updated LVEF
- Heart failure education
- TTE 04/22/2025: LVEF 45-50%, mild MS, mild , moderate AR
Valvular heart disease
-TTE 04/22/2025: LVEF 45-50%, mild MS, mild , moderate AR
-Mild low gradient aortic stenosis by TTE and RHC
CKD stage IIIb
- Hold diuresis as above
Chronic hypoxic respiratory failure, on 3 L nasal cannula at baseline, in the setting of COPD
COPD, steroid-dependent
Fasting hyperglycemia, HbA1c pending
Chronic back pain
Palliative care, currently enrolled
Subjective: She still had dyspnea on exertion when walking to the bathroom yesterday. She does not feel like she is ready to go home.
Physical Exam
Vital Signs/Labs
Vital Signs
Temp Pulse Resp BP Pulse Ox
97.9 F 69 17 126/56 98
04/23/25 08:35 04/23/25 08:35 04/23/25 08:35 04/23/25 08:35 04/23/25 08:35
04/22/25 04/23/25 04/24/25
06:59 06:59 06:59
Actual Weight 193 lb 12.8 oz 194 lb 4.8 oz
04/21/25 22:05
04/23/25 07:07
Magnesium 2.0 mg/dl (1.6-2.3) 04/22/25 05:20
04/21/25
22:05
Bgs-P-Gcoowcdrqar Pept 589
Physical Exam
Constitutional: No acute distress and Comfortable
Cardiovascular: Rhythm & rate is regular, Pedal edema is absent, S1S2 is normal and Murmur/rub/gallop absent
Respiratory: Respiratory effort normal and Crackles Present
Data Reviewed
-
Date of Service: April 23, 2025
Medical Decision Making: Reviewed Test Results, Independent Historian Assessment, Test Interpretation and Review of Case with other Provider
EKG: Tracing Personally Visualized and interpreted
Echo: Report Reviewed by me
X-Ray/CT/US/MRI/NUC/PET: Report Reviewed by me
Labs: Labs Reviewed by me
[2025-04-23] MEDS: DESENEX/MITRAZOL/ZEASORB 1 APPLIC TOPICAL ×2 (09:29→19:44)
--- NOTE | 2025-04-23 09:53 | CON.PUL ---
Consultation
Consultation Request
Date/Time Consultation Requested: 04/23/25
Date/Time Consultation Performed: 04/23/25
Performing Provider: Christos
Reason for Consultation: SOB
Medical History
-
History of Present Illness:
Patient is a 75-year-old female with previous history of COPD on continuous home O2 3 L, chronic prednisone 10 mg, CHF with decreased EF, JUAN ANTONIO not on CPAP presenting to ER with weight gain and shortness of breath. She feels her trigger may have
been her heart failure and fluid retention. She does have ongoing wheeze. She does not have worsening hypoxemia. She is maintained at 93% on 3 L. On arrival chest x-ray with bibasilar interstitial markings, proBNP 590. She was recently
discharged from on 11/15/2024 with similar presentation. She has not been seen in our office in over 1 year.
Past Medical History
Past Medical History: Other (see list below)
Social History
Tobacco: Former Smoker
Alcohol: None
Drug: None
Family History
Family History: Reviewed & Not Pertinent
Allergies / Home Medications
Allergies
Allergy/AdvReac Type Severity Reaction Status Date / Time
ampicillin Allergy Hives Verified 10/05/24 19:40
coconut Allergy Hives Verified 10/05/24 19:40
mustard Allergy Hives Verified 10/05/24 19:40
Home Medications
�Medication �Instructions �Recorded �Confirmed �Last Taken �Type
furosemide 40 mg tablet 20 mg PO DAILY Fluid 02/20/24 11/15/24 11/06/24 History
Retention/Swelling
melatonin 5 mg tablet 10 mg PO HSPRN PRN sleep 06/22/24 11/15/24 Unknown History
guaifenesin 600 mg tablet, 600 mg PO Q12H Lung/breathing 08/01/24 11/15/24 11/06/24 History
extended release 12 hr issues
loratadine 10 mg tablet (Claritin) 10 mg PO DAILY Allergies 10/08/24 11/15/24 11/06/24 History
aspirin 81 mg chewable tablet 81 mg PO DAILY #30 tabs 10/22/24 11/15/24 Unknown Rx
metoprolol succinate 25 mg 25 mg PO HS #30 tabs 10/22/24 11/15/24 Unknown Rx
tablet,extended release 24 hr
oxycodone 5 mg tablet 5 mg PO Q6HPRN PRN severe pain #10 10/22/24 11/15/24 Unknown Rx
tabs
acetaminophen 325 mg tablet 650 mg (2 x 325 mg) PO Q4HPRN PRN 11/15/24 Unknown Rx
mild pain or temp >/= 100.4 F #0
tabs
budesonide 0.5 mg/2 mL suspension 0.5 mg (2 mL) inhalation R BID #60 11/15/24 Unknown Rx
for nebulization mL
bupropion HCl 150 mg 24 hr tablet, 150 mg PO DAILY #0 tabs 11/15/24 Unknown Rx
extended release
calcium 500 mg (as 2 tab PO DAILY 30 days #60 tabs 11/15/24 Unknown Rx
carbonate)-vitamin D3 5 mcg (200
unit) tablet (Oyster Shell
Calcium-Vitamin D3)
folic acid 1 mg tablet 1 mg PO DAILY #30 tabs 11/15/24 Unknown Rx
ipratropium 0.5 mg-albuterol 3 mg 3 ml inhalation R Q4HPRN PRN 11/15/24 Unknown Rx
(2.5 mg base)/3 mL nebulization shortness of breath/wheezing #180
soln mL
ipratropium 0.5 mg-albuterol 3 mg 3 ml inhalation R QID #180 mL 11/15/24 Unknown Rx
(2.5 mg base)/3 mL nebulization
soln
multivitamin with folic acid 400 1 tab PO DAILY #30 tabs 11/15/24 Unknown Rx
mcg tablet (Tab-A-Ten)
prednisone 10 mg tablet See Rx Instructions .Route 11/15/24 Unknown Rx
.COMPLEX #30 tabs
sertraline 50 mg tablet 50 mg PO DAILY 30 days #30 tabs 11/15/24 Unknown Rx
thiamine HCl (vitamin B1) 100 mg 100 mg PO BID #60 tabs 11/15/24 Unknown Rx
tablet
Review of Systems
-
History Source: Patient
All other systems: Negative unless noted
Vitals / Labs / Diagnostic Testing
Vital Signs
Temp Pulse Resp BP Pulse Ox
97.9 F 69 17 126/56 98
04/23/25 08:35 04/23/25 08:35 04/23/25 08:35 04/23/25 08:35 04/23/25 08:35
Lab Data
04/21/25 22:05
04/23/25 07:07
Diagnostic Testing:
Physical Exam
-
HEENT: Normocephalic, Anicteric and Moist Mucous Membranes
Cardiovascular: S1/S2 and Regular Rhythm
Respiratory: Wheeze and Non-Labored Respirations
GI: Soft, Distended and Non Tender
Neurology: Awake, Alert, Oriented and No Motor Deficits
Skin: Warm and Dry
General: Comfortable and Other (deconditioned)
Assessment
-
Patient is a 75-year-old female with previous history of COPD on continuous home O2 3 L, chronic prednisone 10 mg, CHF with decreased EF, JUAN ANTONIO not on CPAP presenting to ER with weight gain and shortness of breath. She feels her trigger may have
been her heart failure and fluid retention. She does have ongoing wheeze. She does not have worsening hypoxemia. She is maintained at 93% on 3 L. On arrival chest x-ray with bibasilar interstitial markings, proBNP 590. She was recently
discharged from on 11/15/2024 with similar presentation. She has not been seen in our office in over 1 year.
Acute respiratory insufficiency/shortness of breath-on baseline 3 L supplemental oxygen.
COPD w/ acute exacerbation
Fever 11/09/2024 influenza A+ 11/09/2024
Acute HFrEF exacerbation
proBNP 14,000 on 11/06/2024
s/p R and L cardiac cath 10/19/24 with mildly increased biventricular pressures
Echocardiogram 10/10/2024: Ejection fraction 30 to 40%. Global hypokinesis. Normal RV size and function. Moderate MR. Mild low-flow low gradient aortic stenosis. Moderate aortic regurgitation. Mild TR. New compared to 04/2024
Chronic kidney disease (baseline creatinine approximately 1.5)
Leukocytosis- now resolved as of 11/13/2024
Left calf laceration-surgery recommended local care 11/08/2024
Compression deformities within the thoracic spine, several which are new compared to prior. Multiple subacute anterior rib fractures-on CAT scan 11/08/2024.
DNR
Conditions present prior to admission:
Hospitalized for acute on chronic heart failure exacerbation October 21, 2024
Hospitalized for acute exacerbation 07/2024
Recent hospitalization 01/24/2024-COPD exacerbation
Recent hospitalization 03/19/2024-acute on top of chronic hypoxic respiratory failure CHF and COPD
Recent hospitalization 05/07-CHF, acute on top of chronic back pain, UTI, [place] and COPD
Recent hospitalization-06/22/2024-back pain, chronic hypoxemic respiratory failure, chronic COPD and chronic CHF
Repetitive hospitalizations for COPD exacerbation-December, April, July, August, September [address] chest: 11/08/24-6-7 mm lung nodule right upper lobe, 3-4 mm nodule left upper lobe. New 4 mm groundglass nodule right middle lobe
Emphysema
Syncope admission August 2020-found minimally responsive, septic shock, left lower extremity fasciitis requiring mechanical ventilation
s/p extensive surgical debridement and wound VAC for 10 months
COPD/asthma overlap oxygen dependent 2 L-followed by Dr. Roque-maintained on Lina Sexton
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
Active smoker
Covid illness September 2023
Obstructive sleep apnea/CPAP intolerant.
Chronic heart failure preserved EF.
Moderate mitral regurgitation
Mild aortic stenosis
Moderate aortic regurgitation
Chronic kidney disease stage III.
Anxiety/depression.
Obesity.
Sciatica.
Prior lumbar fracture.
Left lower extremity fasciitis.
Hyponatremia.
Renal calculi.
Cataract. Carpal tunnel release. Cholecystectomy 1975. Shoulder surgery 1992.
Plan
Hypoxemia noted on arrival, she is at her baseline O2 amount of 3L
Prior history of lung disease is noted including COPD/JUAN ANTONIO not on CPAP, last seen in office >1 year ago
Last admission Nov 2024
CXR/CT obtained indicating interstitial pattern/similar to prior films
Other imaging reviewed--chest CT with emphysema/nodules, chronic findings
Cannot r/o AECOPD given wheeze, agree with prednisone course
She is maintained on chronic prednisone
May be a good candidate for Ohtuvayre nebs
ECHO results reviewed--new reduced EF noted
Prior ECHO results are reviewed as well
LHC/RHC results in Dec with normal wedge/mild PH present
Cards following for further management
Maintained on lasix BID
Smoking history noted--encouraged smoking cessation
JUAN ANTONIO history, intolerant to CPAP
Weight loss measures recommended--she has been working on weight loss
BMI now <30
Deconditioning is an issue as well
PT/OT eval
Will need outpatient pulmonary evaluation in our office for PFTs and 6MWT--noncompliant
Reviewed with patient, we will arrange closer to discharge
We will follow
Diagnostic Data
Chest x-ray 06/25/22: mild cardiomeg suggestive of elevated pulm venous pressures, no acute evidence of PNA, suspect mild symmetric subpleural inflammatory interstitial pneumonitis.�������
Chest x-ray 05/04/22: cardiomegaly with prominent vascularity suggesting CHF�������
Chest x-ray 01/02/23- No focal interstitial or airspace opacity.�����
Chest x-ray 10/28/2023-NAD
Chest x-ray 01/18/2024-pulmonary vascularity at top normal
Chest x-ray 01/24/2024- Chronic obstructive pulmonary disease; No superimposed acute abnormalities
Chest x-ray 08/01/2024-cephalization with borderline pulmonary edema
CXR 04/21/25- Pulmonary vasculature is prominent but similar to prior study and may be related to chronic CHF. There is also a component of COPD.
CT abdomen and pelvis 01/14/2024-mild atelectasis at lung bases, small bullae left lung base without pneumothorax, no evidence for intestinal obstruction
CT chest 06/22/2024-compression fractures T8, T10, T11, centrilobular emphysema, pulmonary nodules the larger measuring 6.7 mm right upper lobe
CT chest 11/08/24- 1. Unchanged 6 to 7 mm nodule within the right upper lobe and unchanged 3 to 4 mm nodule within the left upper lobe. There is a new 4 mm groundglass nodule within the right middle lobe, possibly infectious or inflammatory in
nature given appearance. Small amount of irregular airspace consolidation within the posterior left lower lobe, presumably atelectasis with pneumonia unable to be excluded in the appropriate clinical setting. Mild centrilobular emphysema.
US LLE 11/09/19: no evidence of DVT.
Echocardiogram 01/03/23- Low-normal LV function, EF 50%. no significant valvular disease.
Echocardiogram 08/18/2023-EF 50-55%, mild aortic regurgitation
Echocardiogram 04/18/2024-EF 55-60%, moderate mitral regurgitation, mild aortic stenosis-ZACHARIAH 1.5 cm, moderate aortic regurgitation
ECHO 04/22/25- Normal LV size with mildly reduced systolic function. LVEF is 45-50% by visual estimation. Mild global hypokinesis. Normal right ventricular size and function. Mild mitral stenosis with mean gradient 6 mmHg, HR 101. Mild aortic
stenosis. Moderate aortic regurgitation. Right heart pressures could not be determined. Compared to prior from October 10, 2024, LV function is now mildly reduced estimated at 45-50%, previously moderately reduced and estimated at 35-40%, and MR
is now mild, previously moderate.
LHC/RHC 10/19/24- LV 117/11 (EDP 13) mmHg - AO 112/52 (mean 76) mmHg - RA 10 mmHg - RV 47/8 (EDP 11) mmHg
PA 46/20 (mean 30) mmHg - PCWP 16 mmHg - SaO2 93.7 % - SvO2 69.0 % - CO/CI 6.0/3.0 L/min/m2
SVR 878 dsc*-5 - PVR 2.3 Wood Units
Spirometry 03/22/24: FEV1 1.17L 52%, FVC 2.23L 75%, ratio 52, post FEV1 1.2L 54%, no BD response (moderate obstruction, stable)��������
Spirometry 01/26/23- FVC 2.03 or 66%, FEV1 1.27 or 55%, Ratio 62%. (moderate obstruction)��������
Gino 06/01/22: FVC 1.63/77%, FEV1 0.98/62%, ratio 60%, no significant BD response. Moderate obstruction and suggestive of mild restrictive pattern.
PFTs 07/02/22: FEV1 1.25L 54%, FVC 2.09L 68%, ratio 60. Post FEV1 1.32L 57%. No significant bronchodilator response. TLC 4.34L 84%, DLCO 50% (moderate obstruction, normal volumes, moderate diffusion impairment)
Total time spent on this consultation __81__ minutes which includes review of history, physical exam, medications, laboratory data, personal review of imaging, extensive review of outpatient records, discussion with care team and respiratory therapy.
--- NOTE | 2025-04-23 10:44 | W.PN.HOSP.TC ---
Today's Communication/Plan
-
Pulmonary consult
Assessment / Plan
Assessment / Plan
Impression:
75-year-old with past medical history significant for COPD on home O2 and chronic prednisone, CHF with reduced EF, presenting to the emergency department with acute weight gain over the last few days and 3 pounds overnight complaining of increased
dyspnea on exertion and shortness of breath. She has a cough that is unchanged from prior. She has increased wheezing. Chest x-ray shows mild interstitial infiltrates in the lower lobes. Exam reveals bibasilar crackles up to the mid lungs as
well as tightness and wheezing. She has a cough that is productive of yellow phlegm which is unchanged from prior. She is afebrile and has no leukocytosis. She has no peripheral edema but reports that with her CHF exacerbation she never gets
peripheral edema. BNP is elevated. Suspect CHF exacerbation that is triggering some bronchospasms and a COPD exacerbation. She is on chronic home O2 of 3 L satting 92 to 95%.
Cardiac recommending pulmonology consult.
Echocardiogram done
Assessment/plan:
Acute on chronic systolic CHF exacerbation -
mild to moderate CHF exacerbation
Seen by cardiology started on IV Lasix .
Daily weight.
Strict I's and O's.
Most recent echo 10/10/2024 shows :
Normal left ventricular size with moderately reduced systolic function. LVEF
35-40%. Global hypokinesis.
Normal RV size and function.
04/23
Repeat echo doen shows:
TDS: Recommend Definity for future studies.
Normal LV size with mildly reduced systolic function.
LVEF is 45-50% by visual estimation. Mild global hypokinesis.
Normal right ventricular size and function.
Mild mitral stenosis with mean gradient 6 mmHg, HR 101.
Mild aortic stenosis.
Moderate aortic regurgitation.
Right heart pressures could not be determined.
Compared to prior from October 10, 2024, LV function is now mildly reduced
estimated at 45-50%, previously moderately reduced and estimated at 35-40%, and
MR is now mild, previously moderate.
Cardiology recommending hold Lasix for now and obtain pulmonology,
Acute hypoxic respiratory failure
Acute COPD exacerbation
Chest x-ray showed Pulmonary vasculature is prominent but similar to prior study and may be related to chronic CHF. There is also a component of COPD.
Continue prednisone
- DuoNebs RTC
- Albuterol every 3 hours as needed
- Continue Trelegy
04/23
Pulmonology consult
Obstructive sleep apnea�noncompliant with CPAP does not wear, no signs of acute retention at this time
-Oxygen
- Monitor serum CO2
CKD 4.
Creatinine stable
Anxiety/depression
- Continue sertraline
- Continue Wellbutrin
CODE STATUS: Full code
DVT prophylaxis: Lovenox
Diet: Cardiac with fluid restrictions.
Disposition: Pulmonology consult
Total time spent on today's encounter was 65 minutes which included time spent in counseling the patient/family regarding diagnosis and treatment plan as listed above, goals of care, and symptom management. Case was discussed with nursing staff,
specialists, and care coordinators/case management. All labs and imaging personally reviewed by me. Remainder the time spent in detailed review of previous records, lab data, imaging, and other medical provider documentation.
Anticipated Discharge: 24 - 48 hours
Subjective/Interval History
-
Date of Service: April 23, 2025
Patient seen and examined at bedside, denies any chest pain, but still with shortness of breath and wheezing, no abdominal pain, no nausea, no vomiting, no diarrhea or constipation.
Objective Data
-
Labs:
Laboratory Results
04/23/25
07:07
Sodium 139
Potassium 4.4
Chloride 103
Carbon Dioxide 28
BUN 37 H
Creatinine 1.7 H
Glucose 91
Calcium 9.3
Vital Signs:
Vital Signs
Temp Pulse Resp BP Pulse Ox
97.9 F 69 17 126/56 98
04/23/25 08:35 04/23/25 08:35 04/23/25 08:35 04/23/25 08:35 04/23/25 08:35
I&O
04/22/25 04/23/25 04/24/25
06:59 06:59 06:59
Intake Total 960 / 960
Output Total 900 / 900
Balance -900 / -900 960 / 960
Physical Exam
-
General: Well Developed, Well Nourished, No Apparent Distress and Comfortable
HEENT: Normocephalic, Atraumatic, Moist Mucous Membranes, No Ptosis, PERRLA and Nose Appears Normal
Respiratory: Wheezes, Rales, Rhonchi and Non Labored Respirations
Cardiac: Regular Rhythm and S1/S2
Breast: Deferred by me
GI: Soft, Nontender, Nondistended and Normal Bowel Sounds
Genito-urinary: No Costovertebral Tender
Musculoskeletal: No Clubbing, No Cyanosis and No Edema
Skin: Warm
Neuro: Awake, Alert, Oriented, AO x 3 and No Motor Deficits
Psych: Calm
Data Reviewed
-
Diagnostic Radiology: Image personally visualized and interpreted and Report Reviewed by me
CT Scan: Image personally visualized and interpreted and Report Reviewed by me
Ultrasound: Image personally visualized and interpreted and Report Reviewed by me
MRI: Image personally visualized and interpreted and Report Reviewed by me
Medical Tests (Nuc Med, Echo etc): Image personally visualized and interpreted and Report Reviewed by me
Labs: Labs Reviewed by me
Old Records: Reviewed
[2025-04-23 11:08] VITALS: BP 122/62
[2025-04-23] MEDS: TYLENOL 650 MG PO ×2 (13:14→19:44)
[2025-04-23 15:00] VITALS: BP 139/65
[2025-04-23] MEDS: DUONEB INH (15:25)
--- NOTE | 2025-04-23 16:10 | CM ---
Addendum entered by Radha Cardoso RN 04/23/25 16:46:
IMM reviewed.
Original Note:
Reviewed the chart notes and spoke with the patient at the beside. IMM reviewed. CM continues to be available to patient/family and is monitoring medical plan for needs at discharge.
Plan: Discharge to home with resumption of Loíza's VN. Will need PT eval for discharge planning.
[2025-04-23] MEDS: LOVENOX 40 MG SC (17:48)
[2025-04-23 19:32] VITALS: BP 111/59
[2025-04-23 23:08] VITALS: BP 133/67
[2025-04-23] MEDS: TOPROL XL 25 MG PO (23:13)
[2025-04-23] MEDS: MELATONIN 10 MG PO (23:13)
[2025-04-23] MEDS: VENTOLIN NEBULES 2.5 MG INH (23:16)
[2025-04-24 00:16] LABS: COVID-19 Antigen Negative (Negative)
[2025-04-24 02:57] VITALS: BP 114/58
[2025-04-24 05:57] VITALS: BMI 29.6
[2025-04-24 06:25] LABS: Hematocrit 28.5 % (37.0-47.0); Hemoglobin 8.7 g/dL (12.0-16.0); Mean Corp Hgb Conc. 30.5 g/dL (33.0-37.0); Mean Corpuscular Hgb 26.8 pg (27.0-31.0); Mean Corpuscular Volume 87.7 fL (81.0-99.0); Mean Platelet Volume 9.8 fL (7.4-10.4); Platelet Count 351 10^3/uL (130-400); Red Blood Cell Count 3.25 10^6/uL (4.20-5.40); Red Cell Dist. Width 14.6 % (11.5-14.5); White Blood Cell Count 13.5 10^3/uL (4.8-10.8)
[2025-04-24 06:38] LABS: Blood Urea Nitrogen 45 mg/dl (7-17); Calcium 9.1 mg/dl (8.4-10.2); Carbon Dioxide 28 mmol/L (22-30); Chloride 104 mmol/L (98-107); Estimated Creatinine Clearance 33 ml/min; Glucose 125 mg/dl (70-99); Potassium 4.6 mmol/L (3.5-5.1); Sodium 140 mmol/L (135-145); eGFR 31.08
[2025-04-24 07:05] VITALS: BP 107/49
[2025-04-24] MEDS: DUONEB 3 ML INH ×4 (07:25→19:46)
[2025-04-24] MEDS: SYMBICORT 160/4.5 MCG INHALER 2 PUFF INH ×2 (07:25→19:46)
--- NOTE | 2025-04-24 08:12 | W.PN.CD ---
Today's Communication / Plan
-
OK for discharge from cardiology standpoint
Hold Lasix on dc then resume on 04/27 at 10mg daily
Palliative care to manage home diuretics
Impression / Plan
-
I/P: 75F with HFrEF (EF 35-40%), NICM, moderate aortic regurgitation, mild low-flow low gradient aortic stenosis, moderate mitral regurgitation, & steroid dependent COPD who presented with shortness of breath.
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
Dyspnea on exertion
- Likely multifactorial with underlying lung disease, COPD exacerbation and mild HF exacerbation.
- Pulmonary following
- Continue steroids for COPD exac
- HF management as below
HFrEF (LVEF 45-50%), nonischemic cardiomyopathy - acute on chronic
- She is at dry weight (194 lb). BUN/Cr melva in the setting of diuresis
- Hold diuresis until Tuesday (04/27) to give [place] time to resolve. Then start Lasix 10mg daily (was on 5mg prior to admission)
- GDMT as tolerated
-LINDA/ARB/ARNI: She had hypotension with Entresto in the past
-SGLT2 inhibitor: Cost prohibitive
-Aldosterone agonist: Can consider as an outpatient
-Beta yin: Metoprolol succinate 25 mg
-Isosorbide/Hydralazine:�Not indicated
-ICD: Updated LVEF
- Heart failure education
- TTE 04/22/2025: LVEF 45-50%, mild MS, mild , moderate AR
Valvular heart disease
-TTE 04/22/2025: LVEF 45-50%, mild MS, mild , moderate AR
-Mild low gradient aortic stenosis by TTE and RHC
CKD stage IIIb
- Hold diuresis as above
Chronic hypoxic respiratory failure, on 3 L nasal cannula at baseline, in the setting of COPD
COPD, steroid-dependent
Fasting hyperglycemia, HbA1c pending
Chronic back pain
Palliative care, currently enrolled
Subjective: Breathing feels much better today. She thinks because she got good sleep last night.
Physical Exam
Vital Signs/Labs
Vital Signs
Temp Pulse Resp BP Pulse Ox
97.9 F 72 16 114/58 99
04/24/25 02:57 04/24/25 07:29 04/24/25 07:29 04/24/25 02:57 04/24/25 07:29
04/23/25 04/24/25 04/25/25
06:59 06:59 06:59
Actual Weight 194 lb 4.8 oz 194 lb 9.6 oz
04/24/25 05:22
04/24/25 05:22
Magnesium 2.0 mg/dl (1.6-2.3) 04/22/25 05:20
04/21/25
22:05
[id number] Pept 589
Physical Exam
Constitutional: No acute distress and Comfortable
Cardiovascular: Rhythm & rate is regular, Pedal edema is absent, S1S2 is normal and Murmur/rub/gallop absent
Respiratory: Respiratory effort normal and Wheeze Present
Neuro/Psych: AO x 3
Data Reviewed
-
Date of Service: April 24, 2025
Medical Decision Making: Reviewed Test Results, Independent Historian Assessment, Test Interpretation and Review of Case with other Provider
EKG: Tracing Personally Visualized and interpreted
Echo: Report Reviewed by me
Labs: Labs Reviewed by me
[2025-04-24] MEDS: LOW STRENGTH ASPIRIN 81 MG PO (08:18)
[2025-04-24] MEDS: DELTASONE 60 MG PO (08:18)
[2025-04-24] MEDS: WELLBUTRIN XL (24 hour extended release) 150 MG PO (08:18)
[2025-04-24] MEDS: ZOLOFT 50 MG PO (08:18)
[2025-04-24] MEDS: CLARITIN 10 MG PO (08:19)
[2025-04-24] MEDS: MUCINEX 600 MG PO ×2 (08:19→21:28)
[2025-04-24] MEDS: DESENEX/MITRAZOL/ZEASORB 1 APPLIC TOPICAL ×2 (08:21→21:28)
--- NOTE | 2025-04-24 11:09 | W.PN.PUL3 ---
Today's Communication / Plan
-
Doing well, no new complaints/events
Maintained on baseline O2 amounts
No further wheezing noted today, she does not feel ready to go home
Can plan for d/c in AM--she agreed
We will arrange OP FU
Assessment
-
Patient is a 75-year-old female with previous history of COPD on continuous home O2 3 L, chronic prednisone 10 mg, CHF with decreased EF, JUAN ANTONIO not on CPAP presenting to ER with weight gain and shortness of breath. She feels her trigger may have
been her heart failure and fluid retention. She does have ongoing wheeze. She does not have worsening hypoxemia. She is maintained at 93% on 3 L. On arrival chest x-ray with bibasilar interstitial markings, proBNP 590. She was recently
discharged from on 11/15/2024 with similar presentation. She has not been seen in our office in over 1 year.
Acute respiratory insufficiency/shortness of breath-on baseline 3 L supplemental oxygen.
COPD w/ acute exacerbation
Fever 11/09/2024 influenza A+ 11/09/2024
Acute HFrEF exacerbation
proBNP 14,000 on 11/06/2024
s/p R and L cardiac cath 10/19/24 with mildly increased biventricular pressures
Echocardiogram 10/10/2024: Ejection fraction 30 to 40%. Global hypokinesis. Normal RV size and function. Moderate MR. Mild low-flow low gradient aortic stenosis. Moderate aortic regurgitation. Mild TR. New compared to 04/2024
Chronic kidney disease (baseline creatinine approximately 1.5)
Leukocytosis- now resolved as of 11/13/2024
Left calf laceration-surgery recommended local care 11/08/2024
Compression deformities within the thoracic spine, several which are new compared to prior. Multiple subacute anterior rib fractures-on CAT scan 11/08/2024.
DNR
Conditions present prior to admission:
Hospitalized for acute on chronic heart failure exacerbation October 21, 2024
Hospitalized for acute exacerbation 07/2024
Recent hospitalization 01/24/2024-COPD exacerbation
Recent hospitalization 03/19/2024-acute on top of chronic hypoxic respiratory failure CHF and COPD
Recent hospitalization 05/07-CHF, acute on top of chronic back pain, UTI, [place] and COPD
Recent hospitalization-06/22/2024-back pain, chronic hypoxemic respiratory failure, chronic COPD and chronic CHF
Repetitive hospitalizations for COPD exacerbation-December, April, July, August, September [address] chest: 11/08/24-6-7 mm lung nodule right upper lobe, 3-4 mm nodule left upper lobe. New 4 mm groundglass nodule right middle lobe
Emphysema
Syncope admission August 2020-found minimally responsive, septic shock, left lower extremity fasciitis requiring mechanical ventilation
s/p extensive surgical debridement and wound VAC for 10 months
COPD/asthma overlap oxygen dependent 2 L-followed by Dr. Roque-maintained on Lina Sexton
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
Active smoker
Covid illness September 2023
Obstructive sleep apnea/CPAP intolerant.
Chronic heart failure preserved EF.
Moderate mitral regurgitation
Mild aortic stenosis
Moderate aortic regurgitation
Chronic kidney disease stage III.
Anxiety/depression.
Obesity.
Sciatica.
Prior lumbar fracture.
Left lower extremity fasciitis.
Hyponatremia.
Renal calculi.
Cataract. Carpal tunnel release. Cholecystectomy 1975. Shoulder surgery 1992.
Plan
Hypoxemia noted on arrival, she is at her baseline O2 amount of 3L
Prior history of lung disease is noted including COPD/JUAN ANTONIO not on CPAP, last seen in office >1 year ago
Last admission Nov 2024
CXR/CT obtained indicating interstitial pattern/similar to prior films
Other imaging reviewed--chest CT with emphysema/nodules, chronic findings
Cannot r/o AECOPD given wheeze, agree with prednisone course
She is maintained on chronic prednisone
May be a good candidate for Ohtuvayre nebs
ECHO results reviewed--new reduced EF noted
Prior ECHO results are reviewed as well
LHC/RHC results in Dec with normal wedge/mild PH present
Cards following for further management
Maintained on lasix BID
Smoking history noted--encouraged smoking cessation
JUAN ANTONIO history, intolerant to CPAP
Weight loss measures recommended--she has been working on weight loss
BMI now <30
Deconditioning is an issue as well
PT/OT eval
Will need outpatient pulmonary evaluation in our office for PFTs and 6MWT--noncompliant
Reviewed with patient, we will arrange closer to discharge
D/c planning
She feels ready to go tomorrow
Diagnostic Data
Chest x-ray 06/25/22: mild cardiomeg suggestive of elevated pulm venous pressures, no acute evidence of PNA, suspect mild symmetric subpleural inflammatory interstitial pneumonitis.�������
Chest x-ray 05/04/22: cardiomegaly with prominent vascularity suggesting CHF�������
Chest x-ray 01/02/23- No focal interstitial or airspace opacity.�����
Chest x-ray 10/28/2023-NAD
Chest x-ray 01/18/2024-pulmonary vascularity at top normal
Chest x-ray 01/24/2024- Chronic obstructive pulmonary disease; No superimposed acute abnormalities
Chest x-ray 08/01/2024-cephalization with borderline pulmonary edema
CXR 04/21/25- Pulmonary vasculature is prominent but similar to prior study and may be related to chronic CHF. There is also a component of COPD.
CT abdomen and pelvis 01/14/2024-mild atelectasis at lung bases, small bullae left lung base without pneumothorax, no evidence for intestinal obstruction
CT chest 06/22/2024-compression fractures T8, T10, T11, centrilobular emphysema, pulmonary nodules the larger measuring 6.7 mm right upper lobe
CT chest 11/08/24- 1. Unchanged 6 to 7 mm nodule within the right upper lobe and unchanged 3 to 4 mm nodule within the left upper lobe. There is a new 4 mm groundglass nodule within the right middle lobe, possibly infectious or inflammatory in
nature given appearance. Small amount of irregular airspace consolidation within the posterior left lower lobe, presumably atelectasis with pneumonia unable to be excluded in the appropriate clinical setting. Mild centrilobular emphysema.
US LLE 11/09/19: no evidence of DVT.
Echocardiogram 01/03/23- Low-normal LV function, EF 50%. no significant valvular disease.
Echocardiogram 08/18/2023-EF 50-55%, mild aortic regurgitation
Echocardiogram 04/18/2024-EF 55-60%, moderate mitral regurgitation, mild aortic stenosis-ZACHARIAH 1.5 cm, moderate aortic regurgitation
ECHO 04/22/25- Normal LV size with mildly reduced systolic function. LVEF is 45-50% by visual estimation. Mild global hypokinesis. Normal right ventricular size and function. Mild mitral stenosis with mean gradient 6 mmHg, HR 101. Mild aortic
stenosis. Moderate aortic regurgitation. Right heart pressures could not be determined. Compared to prior from October 10, 2024, LV function is now mildly reduced estimated at 45-50%, previously moderately reduced and estimated at 35-40%, and MR
is now mild, previously moderate.
LHC/RHC 10/19/24- LV 117/11 (EDP 13) mmHg - AO 112/52 (mean 76) mmHg - RA 10 mmHg - RV 47/8 (EDP 11) mmHg
PA 46/20 (mean 30) mmHg - PCWP 16 mmHg - SaO2 93.7 % - SvO2 69.0 % - CO/CI 6.0/3.0 L/min/m2
SVR 878 dsc*-5 - PVR 2.3 Wood Units
Spirometry 03/22/24: FEV1 1.17L 52%, FVC 2.23L 75%, ratio 52, post FEV1 1.2L 54%, no BD response (moderate obstruction, stable)��������
Spirometry 01/26/23- FVC 2.03 or 66%, FEV1 1.27 or 55%, Ratio 62%. (moderate obstruction)��������
[place] 06/01/22: FVC 1.63/77%, FEV1 0.98/62%, ratio 60%, no significant BD response. Moderate obstruction and suggestive of mild restrictive pattern.
PFTs 07/02/22: FEV1 1.25L 54%, FVC 2.09L 68%, ratio 60. Post FEV1 1.32L 57%. No significant bronchodilator response. TLC 4.34L 84%, DLCO 50% (moderate obstruction, normal volumes, moderate diffusion impairment)
Total time spent on this consultation __45__ minutes which includes review of history, physical exam, medications, laboratory data, personal review of imaging, extensive review of outpatient records, discussion with care team and respiratory therapy.
Subjective Data
-
Date of Service:
Date of Service: April 24, 2025
Chief Complaint: Pulmonary Follow Up
Subjective:
Sitting in chair, seems better today
No new complaints, events
Not wheezing
Objective Data
Data Reviewed
Vital Signs / I&O / Oxygen:
Vital Signs
Temp Pulse Resp BP Pulse Ox
97.7 F 72 16 107/49 99
04/24/25 07:05 04/24/25 07:29 04/24/25 07:29 04/24/25 07:05 04/24/25 07:29
Intake and Output
04/23/25 04/24/25 04/25/25
06:59 06:59 06:59
Intake Total 960 / 960 480 / 480
Balance 960 / 960 480 / 480
SaO2 99
Nasal Cannula flow liters per 3
minute
Physical Exam
General: Comfortable and Other (NAD)
HEENT: Normocephalic, Anicteric and Moist Mucous Membranes
Cardiovascular: S1-S2 and Regular Rhythm
Respiratory: Clear and Non-Labored Respirations
GI: Soft, Non Distended and Non Tender
Neurology: Awake, Alert, Oriented and No Motor Deficits
Skin: Warm, Dry and Good Color
Labs/Micro/Reports
Lab Data
04/24/25 05:22
04/24/25 05:22
Microbiology
04/23/25 23:48 Nasal Swab Influenza Types A & B (EDUARD) - Final
Negative for Influenza A & B, NAAT
Negative results must be combined with clinical observations
and patient history.
Nucleic Acid Amplification test (NAAT)performed on the
[employer] platform.
--- NOTE | 2025-04-24 11:45 | W.PN.HOSP.TC ---
Today's Communication/Plan
-
Possible discharge if cleared by director of medical staff services.
Assessment / Plan
Assessment / Plan
Impression:
75-year-old with past medical history significant for COPD on home O2 and chronic prednisone, CHF with reduced EF, presenting to the emergency department with acute weight gain over the last few days and 3 pounds overnight complaining of increased
dyspnea on exertion and shortness of breath. She has a cough that is unchanged from prior. She has increased wheezing. Chest x-ray shows mild interstitial infiltrates in the lower lobes. Exam reveals bibasilar crackles up to the mid lungs as
well as tightness and wheezing. She has a cough that is productive of yellow phlegm which is unchanged from prior. She is afebrile and has no leukocytosis. She has no peripheral edema but reports that with her CHF exacerbation she never gets
peripheral edema. BNP is elevated. Suspect CHF exacerbation that is triggering some bronchospasms and a COPD exacerbation. She is on chronic home O2 of 3 L satting 92 to 95%.
Cardiac recommending pulmonology consult.
Echocardiogram done (results below)
Cardio recommending to Hold Lasix on dc then resume on 04/27 at 10mg daily
Assessment/plan:
Acute on chronic systolic CHF exacerbation -
mild to moderate CHF exacerbation
Seen by cardiology started on IV Lasix .
Daily weight.
Strict I's and O's.
Most recent echo 10/10/2024 shows :
Normal left ventricular size with moderately reduced systolic function. LVEF
35-40%. Global hypokinesis.
Normal RV size and function.
04/23
Repeat echo doen shows:
TDS: Recommend Definity for future studies.
Normal LV size with mildly reduced systolic function.
LVEF is 45-50% by visual estimation. Mild global hypokinesis.
Normal right ventricular size and function.
Mild mitral stenosis with mean gradient 6 mmHg, HR 101.
Mild aortic stenosis.
Moderate aortic regurgitation.
Right heart pressures could not be determined.
Compared to prior from October 10, 2024, LV function is now mildly reduced
estimated at 45-50%, previously moderately reduced and estimated at 35-40%, and
MR is now mild, previously moderate.
Cardiology recommending hold Lasix for now and obtain pulmonology,
Hold Lasix on dc then resume on 04/27 at 10mg daily
Acute hypoxic respiratory failure
Acute COPD exacerbation
Chest x-ray showed Pulmonary vasculature is prominent but similar to prior study and may be related to chronic CHF. There is also a component of COPD.
Continue prednisone
- DuoNebs RTC
- Albuterol every 3 hours as needed
- Continue Trelegy
04/23
Pulmonology consulted
Obstructive sleep apnea�noncompliant with CPAP does not wear, no signs of acute retention at this time
-Oxygen
- Monitor serum CO2
CKD 4.
Creatinine stable
Anxiety/depression
- Continue sertraline
- Continue Wellbutrin
CODE STATUS: Full code
DVT prophylaxis: Lovenox
Diet: Cardiac with fluid restrictions.
Disposition: Possible discharge if cleared by director of medical staff services.
Total time spent on today's encounter was 65 minutes which included time spent in counseling the patient/family regarding diagnosis and treatment plan as listed above, goals of care, and symptom management. Case was discussed with nursing staff,
specialists, and care coordinators/case management. All labs and imaging personally reviewed by me. Remainder the time spent in detailed review of previous records, lab data, imaging, and other medical provider documentation.
Anticipated Discharge: Within 24 hours
Subjective/Interval History
-
Date of Service: April 24, 2025
Patient seen and examined at bedside, denies any chest pain , shortness of breath Improved, but still with wheezing no abdominal pain, no nausea, no vomiting, no diarrhea or constipation.
Objective Data
-
Labs:
Laboratory Results
04/24/25
05:22
WBC 13.5 H
Hgb 8.7 L
Hct 28.5 L
Plt Count 351
Sodium 140
Potassium 4.6
Chloride 104
Carbon Dioxide 28
BUN 45 H
Creatinine 1.7 H
Glucose 125 H
Calcium 9.1
Vital Signs:
Vital Signs
Temp Pulse Resp BP Pulse Ox
97.7 F 75 16 107/49 95
04/24/25 07:05 04/24/25 11:26 04/24/25 11:26 04/24/25 07:05 04/24/25 11:26
I&O
04/23/25 04/24/25 04/25/25
06:59 06:59 06:59
Intake Total 960 / 960 480 / 480
Balance 960 / 960 480 / 480
Physical Exam
-
General: Well Developed, Well Nourished, No Apparent Distress and Comfortable
HEENT: Normocephalic, Atraumatic, Moist Mucous Membranes, No Ptosis, PERRLA and Nose Appears Normal
Respiratory: Wheezes, Rales, Rhonchi and Non Labored Respirations
Cardiac: Regular Rhythm and S1/S2
Breast: Deferred by me
GI: Soft, Nontender, Nondistended and Normal Bowel Sounds
Genito-urinary: No Costovertebral Tender
Musculoskeletal: No Clubbing, No Cyanosis and No Edema
Skin: Warm
Neuro: Awake, Alert, Oriented, AO x 3 and No Motor Deficits
Psych: Calm
Data Reviewed
-
Diagnostic Radiology: Image personally visualized and interpreted and Report Reviewed by me
CT Scan: Image personally visualized and interpreted and Report Reviewed by me
Ultrasound: Image personally visualized and interpreted and Report Reviewed by me
MRI: Image personally visualized and interpreted and Report Reviewed by me
Medical Tests (Nuc Med, Echo etc): Image personally visualized and interpreted and Report Reviewed by me
Labs: Labs Reviewed by me
Old Records: Reviewed
--- NOTE | 2025-04-24 14:35 | CM ---
Reviewed the chart notes and faxed clinicals for resumption of services to [facility].
Plan: Discharge to home with resumption of services with [facility].
[place]
[2025-04-24 15:10] VITALS: BP 124/58
[2025-04-24] MEDS: LOVENOX 40 MG SC (18:12)
[2025-04-24 19:45] VITALS: BP 122/61
[2025-04-24] MEDS: TOPROL XL 25 MG PO (21:28)
[2025-04-24 22:48] VITALS: BP 126/58
[2025-04-24] MEDS: MELATONIN 10 MG PO (23:43)
[2025-04-25] MEDS: VENTOLIN NEBULES 2.5 MG INH (04:47)
[2025-04-25 05:29] VITALS: BMI 29.5
[2025-04-25 07:05] VITALS: BP 114/50
[2025-04-25 07:18] LABS: Blood Urea Nitrogen 52 mg/dl (7-17); Calcium 9.3 mg/dl (8.4-10.2); Carbon Dioxide 26 mmol/L (22-30); Chloride 105 mmol/L (98-107); Estimated Creatinine Clearance 35 ml/min; Glucose 104 mg/dl (70-99); Potassium 4.7 mmol/L (3.5-5.1); Sodium 139 mmol/L (135-145); eGFR 33.42
[2025-04-25] MEDS: DUONEB 3 ML INH ×3 (07:27→15:56)
[2025-04-25] MEDS: SYMBICORT 160/4.5 MCG INHALER 2 PUFF INH (07:27)
[2025-04-25 07:31] LABS: Hematocrit 32.8 % (37.0-47.0); Hemoglobin 9.9 g/dL (12.0-16.0); Mean Corp Hgb Conc. 30.2 g/dL (33.0-37.0); Mean Corpuscular Hgb 26.9 pg (27.0-31.0); Mean Corpuscular Volume 89.1 fL (81.0-99.0); Mean Platelet Volume 9.6 fL (7.4-10.4); Platelet Count 405 10^3/uL (130-400); Red Blood Cell Count 3.68 10^6/uL (4.20-5.40); Red Cell Dist. Width 14.5 % (11.5-14.5); White Blood Cell Count 14.1 10^3/uL (4.8-10.8)
[2025-04-25] MEDS: ZOLOFT 50 MG PO (08:38)
[2025-04-25] MEDS: WELLBUTRIN XL (24 hour extended release) 150 MG PO (08:38)
[2025-04-25] MEDS: LOW STRENGTH ASPIRIN 81 MG PO (08:38)
[2025-04-25] MEDS: DELTASONE 60 MG PO (08:38)
[2025-04-25] MEDS: DESENEX/MITRAZOL/ZEASORB 1 APPLIC TOPICAL (08:38)
[2025-04-25] MEDS: MUCINEX 600 MG PO (08:38)
[2025-04-25] MEDS: CLARITIN 10 MG PO (08:38)
[2025-04-25 09:50] VITALS: PULSE 84; O2SAT 90
--- NOTE | 2025-04-25 10:18 | W.PN.HOSP.TC ---
Today's Communication/Plan
-
Discharge home today
Assessment / Plan
Assessment / Plan
Impression:
75-year-old with past medical history significant for COPD on home O2 and chronic prednisone, CHF with reduced EF, presenting to the emergency department with acute weight gain over the last few days and 3 pounds overnight complaining of increased
dyspnea on exertion and shortness of breath. She has a cough that is unchanged from prior. She has increased wheezing. Chest x-ray shows mild interstitial infiltrates in the lower lobes. Exam reveals bibasilar crackles up to the mid lungs as
well as tightness and wheezing. She has a cough that is productive of yellow phlegm which is unchanged from prior. She is afebrile and has no leukocytosis. She has no peripheral edema but reports that with her CHF exacerbation she never gets
peripheral edema. BNP is elevated. Suspect CHF exacerbation that is triggering some bronchospasms and a COPD exacerbation. She is on chronic home O2 of 3 L satting 92 to 95%.
Cardiac recommending pulmonology consult.
Echocardiogram done (results below)
Cardio recommending to Hold Lasix on dc then resume on 04/27 at 10mg daily
Assessment/plan:
Acute on chronic systolic CHF exacerbation -
mild to moderate CHF exacerbation
Seen by cardiology started on IV Lasix .
Daily weight.
Strict I's and O's.
Most recent echo 10/10/2024 shows :
Normal left ventricular size with moderately reduced systolic function. LVEF
35-40%. Global hypokinesis.
Normal RV size and function.
04/23
Repeat echo doen shows:
TDS: Recommend Definity for future studies.
Normal LV size with mildly reduced systolic function.
LVEF is 45-50% by visual estimation. Mild global hypokinesis.
Normal right ventricular size and function.
Mild mitral stenosis with mean gradient 6 mmHg, HR 101.
Mild aortic stenosis.
Moderate aortic regurgitation.
Right heart pressures could not be determined.
Compared to prior from October 10, 2024, LV function is now mildly reduced
estimated at 45-50%, previously moderately reduced and estimated at 35-40%, and
MR is now mild, previously moderate.
Cardiology recommending hold Lasix for now and obtain pulmonology,
Hold Lasix on dc then resume on 04/27 at 10mg daily
Acute hypoxic respiratory failure
Acute COPD exacerbation
Chest x-ray showed Pulmonary vasculature is prominent but similar to prior study and may be related to chronic CHF. There is also a component of COPD.
Continue prednisone
- DuoNebs RTC
- Albuterol every 3 hours as needed
- Continue Trelegy
04/23
Pulmonology consulted
Obstructive sleep apnea�noncompliant with CPAP does not wear, no signs of acute retention at this time
-Oxygen
- Monitor serum CO2
CKD 4.
Creatinine stable
Anxiety/depression
- Continue sertraline
- Continue Wellbutrin
CODE STATUS: Full code
DVT prophylaxis: Lovenox
Diet: Cardiac with fluid restrictions.
Disposition: Discharged today
Total time spent on today's encounter was 65 minutes which included time spent in counseling the patient/family regarding diagnosis and treatment plan as listed above, goals of care, and symptom management. Case was discussed with nursing staff,
specialists, and care coordinators/case management. All labs and imaging personally reviewed by me. Remainder the time spent in detailed review of previous records, lab data, imaging, and other medical provider documentation.
Anticipated Discharge: Today
Subjective/Interval History
-
Date of Service: April 25, 2025
Patient seen and examined at bedside, denies any chest pain , shortness of breath Improved, no abdominal pain, no nausea, no vomiting, no diarrhea or constipation.
Dc today.
Objective Data
-
Labs:
Laboratory Results
04/25/25
06:26
WBC 14.1 H
Hgb 9.9 L
Hct 32.8 L
Plt Count 405 H
Sodium 139
Potassium 4.7
Chloride 105
Carbon Dioxide 26
BUN 52 H
Creatinine 1.6 H
Glucose 104 H
Calcium 9.3
Vital Signs:
Vital Signs
Temp Pulse Resp BP Pulse Ox
97.6 F 72 16 114/50 98
04/25/25 07:05 04/25/25 07:41 04/25/25 07:41 04/25/25 07:05 04/25/25 08:44
I&O
04/24/25 04/25/25 04/26/25
06:59 06:59 06:59
Intake Total 480 / 480 1080 / 1080
Balance 480 / 480 1080 / 1080
Physical Exam
-
General: Well Developed, Well Nourished, No Apparent Distress and Comfortable
HEENT: Normocephalic, Atraumatic, Moist Mucous Membranes, No Ptosis, PERRLA and Nose Appears Normal
Respiratory: Wheezes, Rales, Rhonchi and Non Labored Respirations
Cardiac: Regular Rhythm and S1/S2
Breast: Deferred by me
GI: Soft, Nontender, Nondistended and Normal Bowel Sounds
Genito-urinary: No Costovertebral Tender
Musculoskeletal: No Clubbing, No Cyanosis and No Edema
Skin: Warm
Neuro: Awake, Alert, Oriented, AO x 3 and No Motor Deficits
Psych: Calm
Data Reviewed
-
Diagnostic Radiology: Image personally visualized and interpreted and Report Reviewed by me
CT Scan: Image personally visualized and interpreted and Report Reviewed by me
Ultrasound: Image personally visualized and interpreted and Report Reviewed by me
MRI: Image personally visualized and interpreted and Report Reviewed by me
Medical Tests (Nuc Med, Echo etc): Image personally visualized and interpreted and Report Reviewed by me
Labs: Labs Reviewed by me
Old Records: Reviewed
--- NOTE | 2025-04-25 10:42 | W.DCSUMMARY ---
Discharge Summary
Discharge Data
Date of Admission: 04/23/25
Date of Discharge: 04/25/25
-
Pending Results: No
Hospital Course
Hospital course
75-year-old with past medical history significant for COPD on home O2 and chronic prednisone, CHF with reduced EF, presenting to the emergency department with acute weight gain over the last few days and 3 pounds overnight complaining of increased
dyspnea on exertion and shortness of breath. She has a cough that is unchanged from prior. She has increased wheezing. Chest x-ray shows mild interstitial infiltrates in the lower lobes. Exam reveals bibasilar crackles up to the mid lungs as
well as tightness and wheezing. She has a cough that is productive of yellow phlegm which is unchanged from prior. She is afebrile and has no leukocytosis. She has no peripheral edema but reports that with her CHF exacerbation she never gets
peripheral edema. BNP is elevated. Suspect CHF exacerbation that is triggering some bronchospasms and a COPD exacerbation. She is on chronic home O2 of 3 L satting 92 to 95%.
Cardiac recommending pulmonology consult.
Echocardiogram done (results below)
Cardio recommending to Hold Lasix on dc then resume on 04/27 at 10mg daily
During hospitalization patient was treated from the following
Acute on chronic systolic CHF exacerbation -
mild to moderate CHF exacerbation
Seen by cardiology started on IV Lasix .
Daily weight.
Strict I's and O's.
Most recent echo 10/10/2024 shows :
Normal left ventricular size with moderately reduced systolic function. LVEF
35-40%. Global hypokinesis.
Normal RV size and function.
04/23
Repeat echo caitie shows:
TDS: Recommend Definity for future studies.
Normal LV size with mildly reduced systolic function.
LVEF is 45-50% by visual estimation. Mild global hypokinesis.
Normal right ventricular size and function.
Mild mitral stenosis with mean gradient 6 mmHg, HR 101.
Mild aortic stenosis.
Moderate aortic regurgitation.
Right heart pressures could not be determined.
Compared to prior from October 10, 2024, LV function is now mildly reduced
estimated at 45-50%, previously moderately reduced and estimated at 35-40%, and
MR is now mild, previously moderate.
Cardiology recommending hold Lasix for now and obtain pulmonology,
Hold Lasix on dc then resume on 04/27 at 10mg daily
Acute hypoxic respiratory failure
Acute COPD exacerbation
Chest x-ray showed Pulmonary vasculature is prominent but similar to prior study and may be related to chronic CHF. There is also a component of COPD.
Continue prednisone
- DuoNebs RTC
- Albuterol every 3 hours as needed
- Continue Trelegy
04/23
Pulmonology consulted
Obstructive sleep apnea�noncompliant with CPAP does not wear, no signs of acute retention at this time
-Oxygen
- Monitor serum CO2
CKD 4.
Creatinine stable
Anxiety/depression
- Continue sertraline
- Continue Wellbutrin
CODE STATUS: Full code
DVT prophylaxis: Lovenox
Diet: Cardiac with fluid restrictions.
Total time spent on today's encounter was 40 minutes which included time spent in counseling the patient/family regarding diagnosis and treatment plan as listed above, goals of care, and symptom management. Case was discussed with nursing staff,
specialists, and care coordinators/case management. All labs and imaging personally reviewed by me. Remainder the time spent in detailed review of previous records, lab data, imaging, and other medical provider documentation.
Anticipated Discharge: Today
Discharge Plan
-
Patient Disposition: Home (Routine Discharge)
Discharge Diagnosis/Procedures: Acute on chronic systolic CHF exacerbation -
Acute hypoxic respiratory failure
Acute COPD exacerbation.
Diet: Low Cholesterol and Low Sodium
Activity: As tolerated
Specialty Instructions: Weigh Daily- Call MD for wt gain/loss 3 lbs overnight/5 lbs in 1 week
Instructions: *CBC Heart Failure Instructions
Referrals:
Adenaike,Noman, MD [Active, Cardiology] - in three to four weeks
Wendy Sher DO [Active, Pulmonary Medicine] - in one to two weeks
Referral Note: PFT, w/ DIRECTOR OF QUANTITATIVE RESEARCH ok
Ant Diaz DO [Family Provider, [facility]]
Additional Discharge Medication Instructions: Start Lasix 10 mg daily on April 27, 2025
Prescriptions:
New
albuterol sulfate [Ventolin HFA] 90 mcg/actuation HFA aerosol inhaler
1 inh inhalation Q6H PRN (Reason: shortness of breath or wheezing) Qty: 8.5 0RF
furosemide [Lasix] 20 mg tablet
10 mg PO DAILY Qty: 30 0RF
Continued
melatonin 5 mg tablet
10 mg PO HSPRN PRN (Reason: sleep)
guaifenesin 600 mg tablet extended release 12hr
600 mg PO Q12H
loratadine [Claritin] 10 mg Tablet
10 mg PO DAILY
aspirin 81 mg Tablet,Chewable
81 mg PO DAILY Qty: 30 0RF
metoprolol succinate 25 mg Tablet Extended Release 24 Hr
25 mg PO HS Qty: 30 0RF
Rx Instructions:
*New medication*
oxycodone 5 mg Tablet
5 mg PO Q6HPRN PRN (Reason: severe pain) Qty: 10 0RF
Rx Instructions:
11/15/24: filled oxycodone 5mg tablets #8/2 day supply on 10/22/24 at [facility]
ipratropium-albuterol 0.5 mg-3 mg(2.5 mg base)/3 mL Solution For Nebulization
3 ml inhalation R Q4HPRN PRN (Reason: shortness of breath/wheezing) Qty: 180 0RF
acetaminophen 325 mg Tablet
650 mg PO Q4HPRN PRN (Reason: mild pain or temp >/= 100.4 F) Qty: 0 0RF
sertraline 50 mg Tablet
50 mg PO DAILY 30 Days Qty: 30 0RF
bupropion HCl 150 mg Tablet Extended Release 24 Hr
150 mg PO DAILY Qty: 0 0RF
calcium carbonate-vitamin D3 [Oyster Shell Calcium-Vit D3] 500 mg-5 mcg (200 unit) Tablet
2 tab PO DAILY 30 Days Qty: 60 0RF
ipratropium-albuterol 0.5 mg-3 mg(2.5 mg base)/3 mL Solution For Nebulization
3 ml inhalation R QID Qty: 180 0RF
budesonide 0.5 mg/2 mL Suspension For Nebulization
0.5 mg inhalation R BID Qty: 60 0RF
thiamine HCl (vitamin B1) 100 mg Tablet
100 mg PO BID Qty: 60 0RF
multivitamin with folic acid [Tab-A-Ten] 400 mcg Tablet
1 tab PO DAILY Qty: 30 0RF
folic acid 1 mg Tablet
1 mg PO DAILY Qty: 30 0RF
prednisone 10 mg Tablet
See Rx Instructions .ROUTE .COMPLEX Qty: 30 0RF
Rx Instructions:
Take By Mouth:
40 mg daily x3 days, 30 mg daily x3 days,
20 mg daily x3 days, 10 mg daily x3 days.
Discontinued
furosemide 40 mg tablet
20 mg PO DAILY
Discharge Orders:
Discharge Patient (As Directed); Ordered 04/25/25
Ordered By: Rachel Chase
Discharge Date and Time
Print Language: AUSTRIAN
--- NOTE | 2025-04-25 11:01 | CM ---
Reviewed the chart notes. Patient for discharge. Family to provide transportation.
Plan: Discharge to home with resumption of services with [facility].
[place]
[2025-04-25 16:31] VITALS: BP 127/75
--- NOTE | 2025-04-26 10:41 | W.HF.CON ---
Heart Failure
- LV Function
Left ventricular function study result: LV Ejection fraction >/= 50%
Ejection Fraction Percentage: 45-50
- ARNI
Patient already on ARNI: No
Heart Failure ARNI Not Indicated: LV Ejection Fraction >/= 40%
- ACEI/ARB
Patient already on ACEI/ARB: No
Heart Failure ACEI/ARB Not Indicated: LV Ejection Fraction > 40%
- Beta Kerwin
Patient already on Evidence Based Beta Kerwin: Yes
- Mineralocorticord Receptor Antagonist
Patient already on MRA: No
Heart Failure MRA Not Indicated: LV Ejection Fraction > 40%
- SGLT-2 Inhibitor
Patient already on SGLT-2 Inhibitor: No
Heart Failure SGLT-2 Inhibitor Contraindication: Patient Refusal
- NYHA CHF Classification
NYHA CHF Classification Level: Class III - Symptoms w/ min exertion, interferes w/ nml daily activity (COPD on 3LNC at home)
- ACC/AHA Stage
ACC/AHA Stage: Stage C: Symptomatic Heart Failure
== END 2025-04-25 17:01 | disposition home health service (06) | DRG 291 ==
LOC: 2 NORTH 07:52
PROVIDERS: Emergency Medicine; Nurse Practitioner Family; ADMITTING PHYSICIAN Internal Medicine; ATTENDING PHYSICIAN General Practice; CONSULT PHYSICIAN Internal Medicine; EMERGENCY PHYSICIAN Emergency Medicine; FAMILY PHYSICIAN Family Medicine; OTHER PHYSICIAN Student in an Organized Health Care Education/Training Program
DX: I13.0 Hypertensive heart and chronic kidney disease with heart failure and stage 1 through stage 4 chronic kidney disease, or unspecified chronic kidney disease (principal); I50.43 Acute on chronic combined systolic (congestive) and diastolic (congestive) heart failure; J96.21 Acute and chronic respiratory failure with hypoxia; J44.1 Chronic obstructive pulmonary disease with (acute) exacerbation; N18.4 Chronic kidney disease, stage 4 (severe); M48.56XA Collapsed vertebra, not elsewhere classified, lumbar region, initial encounter for fracture; F32.A Depression, unspecified; F41.9 Anxiety disorder, unspecified; G47.33 Obstructive sleep apnea (adult) (pediatric); Z91.199 Patient's noncompliance with other medical treatment and regimen due to unspecified reason; Z66 Do not resuscitate; I08.0 Rheumatic disorders of both mitral and aortic valves; Z87.891 Personal history of nicotine dependence; E66.9 Obesity, unspecified; Z68.29 Body mass index [BMI] 29.0-29.9, adult; Z79.52 Long term (current) use of systemic steroids; Z11.52 Encounter for screening for COVID-19; Z88.0 Allergy status to penicillin; Z79.82 Long term (current) use of aspirin; M48.00 Spinal stenosis, site unspecified; Z79.51 Long term (current) use of inhaled steroids; Z79.899 Other long term (current) drug therapy; Z90.49 Acquired absence of other specified parts of digestive tract; Z99.81 Dependence on supplemental oxygen
CPT/HCPCS: 71046; 80048; 80053; 83036; 83735; 83880; 84443; 85025; 85027; 87502; 87811; 93005; 93306; 94640; 97162; 99285

== ENCOUNTER 2025-04-29 22:25 | Inpatient (IN) | payer MEDICARE, SELFPAY ==
[2025-04-29 19:27] VITALS: BP 134/85
[2025-04-29 19:53] VITALS: BP 147/74
--- NOTE | 2025-04-29 19:59 | ED.GENMED ---
History of Present Illness
General
Chief Complaint: Breathing Problem
Source: patient, records and family
Exam Limitations: none
Time Seen by Provider: 04/29/25 19:46
Nursing documentation reviewed up to this point in time: agreed with
History of Present Illness
History of Present Illness:
75-year-old female with a past medical history as documented notable for COPD on 3 to 4 L of home oxygen, congestive heart failure who presents to the emergency department with her daughter for evaluation of worsening shortness of breath and cough.
Of note, patient was admitted to this hospital 04/22/2025 until 04/25/2025 for CHF exacerbation and COPD exacerbation. She says that when she was discharged she felt subjectively improved but was still having some wheezing. Since she has returned
home she has had increased wheezing to the point of respiratory distress today. She reports symptoms seem to be worse at night and worse when she moves around. She reports associated hacking cough productive of yellow phlegm. She denies fever or
chills. She denies swelling in the legs but says that she does not typically get swelling in her legs from heart failure. She does note that she has actually had weight loss since discharge about 2 pounds. She denies any chest pain, GI symptoms
or any other acute complaints. She reports compliance with all of her home medications including increased dose of prednisone 60 mg daily.
Past History
Past History
ED Past Medical History: CHF, COPD (2-3 liters NC), Psychiatric (Anxiety, Depression, ) and Other (Spinal stenosis, morbid obesity, Bilateral kidney stones, Ulcers, Sleep apnea, Shingles, )
ED Past Surgical History: Cholecystectomy, Orthopedic (Left shoulder reconstruction. ), Urological (Kidney surgery) and Other (Fasciotomy for fasciitis with wound VAC of lower back and thigh)
Social History
Tobacco: Former smoker
Alcohol: None
Drug: None
Personal:
Living: alone
Employment: Retired
Family History
Family History: Other (Noncontributory)
Review of Systems
Review of Systems
All Other Systems: ROS reviewed and negative except as documented in HPI and ROS
Constitutional: Denies fever or chills
Respiratory: Reports cough and trouble breathing
Cardiac: Denies chest pain
ABD/GI: Denies abdominal pain, nausea or vomiting
: Denies flank pain
Musculoskeletal: Denies edema, neck pain or back pain
Neurological: Denies headache
Phy Exam
Physical Exam
Physical Exam:
General: Awake, alert, oriented x3; no acute distress
Head: Normocephalic, atraumatic
Eyes: Conjunctiva normal, EOMI
Throat: Airway intact, handling secretions
Neck: Trachea midline, no JVD
Lungs: Patient has tachypnea with mild increased work of breathing, hypoxia despite her normal home oxygen requiring increased to 6 L nasal cannula; she has diffuse wheezing throughout all lung mejia with prolonged expiration
Heart: Regular rate and rhythm, no murmurs, gallops, or rubs
Abd: Soft, non distended, nontender
Neuro: No gross deficits
Extremities: Trace edema around the ankles, extremities warm and well-perfused equal pulses throughout
Scores
Heart Failure Risk
Heart Failure Risk Score: Not Applicable
Heart Score for Chest Pain Patients
STEMI patient?: Not applicable
Withdrawal Assessment of Alcohol
Withdrawal Assessment Completed?: Not applicable
Course
Orders/Labs/Results
Orders:
Orders
04/29/25 19:46
CR Chest Portable - 1 View Urgent
Comment:
Reason For Exam: sob
Reason Study Needs to be Portable: Unable to Transport
04/29/25 19:47
Ipratropium/Albuterol Sulfate [Duoneb] 3 ml INH R NOW STA
MethylPREDNISolone PF [Solu-Medrol Pf] 125 mg IV NOW STA
04/29/25 19:58
Furosemide [Lasix] 40 mg IV NOW STA
04/29/25 20:01
COVID-19 Antigen Urgent
Source: Nasal Swab
Complete Blood Count/With Diff Urgent
Comprehensive Metabolic Panel Urgent
NT-proBNP Urgent
Influenza A+B Rapid Molecular Urgent
ALLI Source: Nasal Swab
Specimen Description:
Abnormal Lab Results
04/29/25
20:01
WBC 19.1 H 10^3/uL
(4.8-10.8)
RBC 3.90 L 10^6/uL
(4.20-5.40)
Hgb 10.5 L g/dL
(12.0-16.0)
Hct 34.5 L %
(37.0-47.0)
MCH 26.9 L pg
(27.0-31.0)
MCHC 30.4 L g/dL
(33.0-37.0)
RDW 14.8 H %
(11.5-14.5)
Abs Immat Gran (auto) 0.1 H 10^3/uL
(0-0.05)
Absolute Neuts (auto) 17.6 H 10^3/uL
(1.4-6.5)
Absolute Lymphs (auto) 0.5 L 10^3/uL
(1.2-3.4)
Immature Gran % 0.7 H %
(0-0.5)
Neutrophils % 92.6 H %
(42.2-75.2)
Lymphocytes % 2.6 L %
(20.5-51.1)
Chloride 110 H mmol/L
(98-107)
BUN 37 H mg/dl
(7-17)
Creatinine 1.5 H mg/dL
(0.6-1.0)
Glucose 119 H mg/dl
(70-99)
04/29/25 20:01
04/29/25 20:01
Vital Signs
Initial and Last Documented VS:
Initial Vital Signs
Temp Pulse Resp BP Pulse Ox
36.6 C 87 26 134/85 85
04/29/25 19:27 04/29/25 19:27 04/29/25 19:27 04/29/25 19:27 04/29/25 19:27
Last Documented Vital Signs
Temp Pulse Resp BP Pulse Ox
36.6 C 85 20 125/71 98
04/29/25 19:27 04/29/25 20:19 04/29/25 20:19 04/29/25 20:19 04/29/25 20:19
MDM/Problems Addressed
Differential Diagnosis Includes:
Pneumonia, COPD exacerbation, CHF exacerbation, PE less likely
MDM/Problems Addressed:
75-year-old female presents for evaluation of increased shortness of breath, cough over the past few days since discharge from recent hospitalization. Vitals and exam as above�suspect acute COPD exacerbation although with history of CHF could be
mixed picture. Plan to place an IV check labs including a CBC and a CMP, proBNP. Swab for COVID and flu. Will check chest x-ray and EKG. Provide DuoNeb and steroids and dose of Lasix. Will monitor closely reassess after the above. Anticipate
admission.
Labs reviewed: CBC shows leukocytosis to 19 in the setting of known steroid use. CMP shows stable CKD with creatinine of 1.5. Potassium acceptable. COVID and flu negative. Chest x-ray reviewed by me shows some mild edema. Suspect symptoms are
mainly related to COPD exacerbation although likely some element of CHF with some mild edema on x-ray. Plan admit for continued treatment. Case discussed with hospitalist.
Chronic conditions affecting care:
CHF, COPD, chronic respiratory failure
*Radiology
Radiology exam reviewed: preliminary read by ED provider and radiology read reviewed
*Pulse Oximetry
Patient hypoxic: yes (85%)
*EKG
Interpreted by ED Provider?: Yes
Heart Rate: 97
Rate: normal
Rhythm: sinus
[place]: normal axis
Interval: normal interval
QRS Pattern: normal QRS
Ischemia: no ischemia
*Critical Care Note
Total Time (30-74mins, 75-104mins- exclusive of procedures): Not Applicable
Data Reviewed
Review of Other/Old Records Reveals: Labs, Records, Radiology Studies and Discharge Summary
Source: patient, records and family
Patient Management
Discussion with other providers: Hospitalist (Discussed with hospitalist)
Escalation/DeEscalation of care consider admission/obs:
Admission indicated
ED Attending Note
-
Portions of this chart may have been created with voice recognition software.� Occasional wrong word or��sound alike� substitutions may have occurred due to the inherent limitations of voice recognition software.
Discharge Plan
Departure
Patient Disposition: Admit
Date of Disposition: 04/29/25
Time of Disposition: 20:44
Admit to doctor: Cliff
Presentation/result/management discussed w/ accepting MD/DO: Hospitalist
Discharge Problem:
COPD with exacerbation, CHF exacerbation, Acute and chronic respiratory failure
Prescriptions:
No Action
melatonin 5 mg tablet
10 mg PO HSPRN PRN (Reason: sleep)
guaifenesin 600 mg tablet extended release 12hr
600 mg PO Q12H
loratadine [Claritin] 10 mg Tablet
10 mg PO DAILY
aspirin 81 mg Tablet,Chewable
81 mg PO DAILY Qty: 30 0RF
metoprolol succinate 25 mg Tablet Extended Release 24 Hr
25 mg PO HS Qty: 30 0RF
Rx Instructions:
*New medication*
oxycodone 5 mg Tablet
5 mg PO Q6HPRN PRN (Reason: severe pain) Qty: 10 0RF
Rx Instructions:
11/15/24: filled oxycodone 5mg tablets #8/2 day supply on 10/22/24 at [facility]
ipratropium-albuterol 0.5 mg-3 mg(2.5 mg base)/3 mL Solution For Nebulization
3 ml inhalation R Q4HPRN PRN (Reason: shortness of breath/wheezing) Qty: 180 0RF
acetaminophen 325 mg Tablet
650 mg PO Q4HPRN PRN (Reason: mild pain or temp >/= 100.4 F) Qty: 0 0RF
sertraline 50 mg Tablet
50 mg PO DAILY 30 Days Qty: 30 0RF
bupropion HCl 150 mg Tablet Extended Release 24 Hr
150 mg PO DAILY Qty: 0 0RF
calcium carbonate-vitamin D3 [Oyster Shell Calcium-Vit D3] 500 mg-5 mcg (200 unit) Tablet
2 tab PO DAILY 30 Days Qty: 60 0RF
ipratropium-albuterol 0.5 mg-3 mg(2.5 mg base)/3 mL Solution For Nebulization
3 ml inhalation R QID Qty: 180 0RF
budesonide 0.5 mg/2 mL Suspension For Nebulization
0.5 mg inhalation R BID Qty: 60 0RF
thiamine HCl (vitamin B1) 100 mg Tablet
100 mg PO BID Qty: 60 0RF
multivitamin with folic acid [Tab-A-Ten] 400 mcg Tablet
1 tab PO DAILY Qty: 30 0RF
folic acid 1 mg Tablet
1 mg PO DAILY Qty: 30 0RF
albuterol sulfate [Ventolin HFA] 90 mcg/actuation HFA aerosol inhaler
1 inh inhalation Q6H PRN (Reason: shortness of breath or wheezing) Qty: 8.5 0RF
furosemide [Lasix] 20 mg tablet
10 mg PO DAILY Qty: 30 0RF
prednisone 10 mg Tablet
See Rx Instructions .ROUTE .COMPLEX Qty: 30 0RF
Rx Instructions:
Take By Mouth:
40 mg daily x3 days, 30 mg daily x3 days,
20 mg daily x3 days, 10 mg daily x3 days.
Referrals:
UNKNOWN - PT DOES,NOT KNOW [Family Provider]
Interventions
Interventions:
*Risk Screen - Suicide Last Done: 04/29/25 19:27
*General Assessment Last Done: 04/29/25 19:27
*Neglect/Abuse Screening Last Done: 04/29/25 19:27
ED- Cardiac Assessment Last Done: 04/29/25 19:53
ED- Pulmonary Assessment Last Done: 04/29/25 19:53
Discharge Date and Time
Print Language: SERBIAN
[2025-04-29] MEDS: DUONEB 3 ML INH (20:16)
[2025-04-29] MEDS: LASIX 40 MG IV (20:16)
[2025-04-29] MEDS: SOLU-MEDROL PF 125 MG IV (20:16)
[2025-04-29 20:18] LABS: % Basophils 0.2 % (0-2); % Eosinophils 0.8 % (0-6); % Immature Granulocytes 0.7 % (0-0.5); % Lymphocytes 2.6 % (20.5-51.1); % Monocytes 3.1 % (1.7-9.3); % Neutrophils 92.6 % (42.2-75.2); Absolute Eosinophils 0.2 10^3/uL (0-0.7); Absolute Immature Granulocytes 0.1 10^3/uL (0-0.05); Absolute Lymphocytes 0.5 10^3/uL (1.2-3.4); Absolute Monocytes 0.6 10^3/uL (0.1-0.6); Absolute Neutrophils 17.6 10^3/uL (1.4-6.5); Hematocrit 34.5 % (37.0-47.0); Hemoglobin 10.5 g/dL (12.0-16.0); Mean Corp Hgb Conc. 30.4 g/dL (33.0-37.0); Mean Corpuscular Hgb 26.9 pg (27.0-31.0); Mean Corpuscular Volume 88.5 fL (81.0-99.0); Mean Platelet Volume 9.5 fL (7.4-10.4); Nucleated Red Blood Cells % 0 %; Platelet Count 375 10^3/uL (130-400); Red Cell Dist. Width 14.8 % (11.5-14.5); White Blood Cell Count 19.1 10^3/uL (4.8-10.8)
[2025-04-29 20:19] VITALS: BP 125/71
[2025-04-29 20:39] LABS: ALT (SGPT) 16 U/L (0-35); AST (SGOT) 18 U/L (14-36); Albumin 3.8 g/dl (3.5-5.0); Alkaline Phosphatase 117 U/L (38-126); Blood Urea Nitrogen 37 mg/dl (7-17); COVID-19 Antigen Negative (Negative); Calcium 9.1 mg/dl (8.4-10.2); Carbon Dioxide 24 mmol/L (22-30); Chloride 110 mmol/L (98-107); Glucose 119 mg/dl (70-99); Potassium 4.7 mmol/L (3.5-5.1); Sodium 141 mmol/L (135-145); Total Bilirubin 0.5 mg/dl (0.2-1.3); Total Protein 6.7 g/dl (6.3-8.2); eGFR 36.12
[2025-04-29 20:48] LABS: NT-proBNP 1160 pg/ml
--- NOTE | 2025-04-29 20:50 | HPS.HSE ---
Addendum entered and electronically signed by Charles Coronado DO 04/29/25 22:35:
Patient seen and examined independently. Agree with findings and plan as set forth by JOSEFINA Gutierrez.
Patient is a 75y F with PMH significant for COPD, chronic hypoxemic respiratory failure on home O2, chronic HFmrEF and CKD who presents to ED complaining of cough and SOB. Patient was recently admitted 04/23 - 04/25 for SOB and weight gain and
treated with IV diuresis as well as increase in her chronic prednisone dosing. Patient notes that she felt improved at discharge. Since discharge, she reports development of hacking cough intermittently productive of thick, white mucus. She notes
chest discomfort due to persistent coughing. Increased SOB and this AM, her SpO2 was in the low 80s and would not increase despite increasing her home O2 from 3lpm to 4 lpm.
Patient presented to ED for further evaluation.
Weight has gradually decreased since hospital discharge. No fevers / chills.
Ass:
Acute on Chronic Hypoxemic Respiratory Failure
COPD with Acute Exacerbation / Acute Bronchitis
Chronic HFmrEF
CKD III
Anxiety / Depression
Plan:
Admit for further evaluation and treatment.
Increase PO prednisone back to 40mg daily for now.
Nebs ATC and PRN.
Add doxycycline BID given cough / change in mucus production.
Follow for clinical improvement.
Wean O2 back to baseline (3 lpm) as able.
Continue PO Lasix - increase to 20mg daily for now.
Follow I/Os, daily weights, etc.
Continue other usual home medications.
Original Note:
Family Physician
-
Family Physician: NOT KNOW UNKNOWN - PT DOES
Chief Complaint
-
dyspnea
History of Present Illness
Patient is a 75-year-old female with past medical history significant for COPD, chronic HFpEF, CKD Stage III and anxiety/depression who presented to [facility] ED for evaluation of increased shortness of breath. Patient reports follow discharge 04/25/2025
for hospitalization of COPD and CHF exacerbation she went home and increasingly got worse with dyspnea at rest and wheezing. She reports having a difficult time breathing when just sitting or lying down over the past 24-hours. She reports that she
weights herself daily at home and reports her weight is down. Patient does not present as overloaded on exam, but she does report she generally does not have peripheral edema with fluid overload, she reports that she feels tightness in her abdomen
and she denies any of that currently. She confirms a productive cough since discharge. She reports baseline home O2 is at 3Liters and needed to turn up to 4Liters and unable to wean over past 24-hours. Patient denies fever, chills, chest pain,
nausea, vomiting, constipation, diarrhea or urinary symptoms.
Medical History
Past Medical History
Past Medical History: Reports Other
Additional Past Medical History:
Chronic Hypoxic Respiratory Insufficiency
COPD
Chronic HFpEF
Valvular Heart Disease: Mild Aortic Stenosis, Mild/Moderate Mitral Regurg
CKD Stage III
Chronic Back Pain secondary to L2 Compression Fracture
Anxiety/Depression
Morbid Obesity
Obstructive Sleep Apnea
Past Surgical History: Reports Other
Additional Past Surgical History:
Cholecystectomy
Left Shoulder Reconstruction
Fasciotomy
Social History
Tobacco: Former Smoker
Alcohol: None
Drug: None
Living: With Family
Employment: Retired
Family History
Family History: Not pertinent
Allergies / Home Medications
Allergies reflects when Allergies were last updated in [facility].
Home Medications with original date entered in [facility]
Allergy/Medication List:
Allergies
Allergy/AdvReac Type Severity Reaction Status Date / Time
ampicillin Allergy Hives Verified 04/29/25 19:27
coconut Allergy Hives Verified 04/29/25 19:27
mustard Allergy Hives Verified 04/29/25 19:27
Home Medications
melatonin 5 mg tablet 10 mg PO HSPRN PRN sleep 06/22/24
loratadine 10 mg tablet (Claritin) 10 mg PO DAILY Allergies 10/08/24
aspirin 81 mg chewable tablet 81 mg PO DAILY #30 tabs 10/22/24
metoprolol succinate 25 mg tablet,extended release 24 hr 25 mg PO HS #30 tabs 10/22/24
oxycodone 5 mg tablet 5 mg PO Q6HPRN PRN severe pain #10 tabs 10/22/24
acetaminophen 325 mg tablet 650 mg (2 x 325 mg) PO Q4HPRN PRN mild pain or temp >/= 100.4 F #0 tabs 11/15/24
bupropion HCl 150 mg 24 hr tablet, extended release 150 mg PO DAILY #0 tabs 11/15/24
calcium 500 mg (as carbonate)-vitamin D3 5 mcg (200 unit) tablet (Oyster Shell Calcium-Vitamin D3) 2 tab PO DAILY 30 days #60 tabs 11/15/24
folic acid 1 mg tablet 1 mg PO DAILY #30 tabs 11/15/24
sertraline 50 mg tablet 50 mg PO DAILY 30 days #30 tabs 11/15/24
furosemide 20 mg tablet (Lasix) 10 mg (1/2 x 20 mg) PO DAILY #30 tabs 04/25/25
albuterol sulfate 90 mcg/actuation aerosol inhaler (Ventolin HFA) 2 inh inhalation R Q6HPRN PRN shortness of breath or wheezing 04/29/25
budesonide 0.25 mg/2 mL suspension for nebulization 0.25 mg inhalation R QID 04/29/25
guaifenesin 100 mg/5 mL oral liquid 200 mg PO Q6HPRN PRN cough 04/29/25
ipratropium 0.5 mg-albuterol 3 mg (2.5 mg base)/3 mL nebulization soln 3 ml inhalation R BID 04/29/25
prednisone 10 mg tablet 10 mg PO DAILY 04/29/25
thiamine HCl (vitamin B1) 100 mg tablet 100 mg PO DAILY 04/29/25
Review of Systems
-
History Source: Patient
Constitutional: Reports Weight Loss
Respiratory: Reports Cough (productive ), Trouble Breathing (dyspnea at rest ) and Other (increased O2 requirements )
: Reports Frequency and Incontinence
Physical Exam
Vital Signs
Vital Signs
Temp Pulse Resp BP Pulse Ox
97.9 F 85 20 125/71 98
04/29/25 19:27 04/29/25 20:19 04/29/25 20:19 04/29/25 20:19 04/29/25 20:19
Physical Exam
General: Well Developed, Well Nourished, No Apparent Distress, Conversant and Morbidly Obese
HEENT: NormoCephalic, Moist mucous membranes and Atraumatic
Respiratory: Clear, Wheezes, Rhonchi and Other (tachypnea, increased O2 requirements to 5liters )
Cardiac: S1/S2 and Regular Rhythm; No Murmur, Rub or Gallop
Breast: Deferred by me
GI: Soft, Non Tender, Non Distended and Normal Bowel Sounds; No Organomegaly
Rectal: Deferred by Provider
Genito-urinary: Deferred by me
Musculoskeletal: No Clubbing, No Cyanosis and No Edema
Skin: IV/Catheter Site
Neuro: Awake, Alert, AO x 3 and Nonfocal/grossly intact
Psych: Anxious
Laboratory Results
-
04/29/25 20:01
04/29/25 20:01
Laboratory Results
Total Bilirubin 0.5 mg/dl (0.2-1.3) 04/29/25 20:01
AST 18 U/L (14-36) 04/29/25 20:01
ALT 16 U/L (0-35) 04/29/25 20:01
Alkaline Phosphatase 117 U/L (38-126) 04/29/25 20:01
Data Reviewed
-
Lab Data: Labs Reviewed by me (WBC 19.1, neut 92.6, BUN 37, Creat 1.5, eGFR 36.12, BNP 1160)
Impression/Plan
-
IMPRESSION/PLAN:
#acute on chronic respiratory failure likely 2/2 acute COPD exacerbation
WBC 19.1, neut 92.6, BNP 1160
CXR:
- Admit to telemetry
- increase prednisone to 40mg daily then taper slowly
- start Doxycycline BID
- DuoNebs QID
- supportive care
#COPD
- oxygen wean to baseline as tolerated
- continue albuterol, budesonide, guaifenesin, DuoNeb, Claritin and prednisone
#chronic HFpEF
ECHO (04/22/2025): TDS: Recommend Definity for future studies.
Normal LV size with mildly reduced systolic function.
LVEF is 45-50% by visual estimation. Mild global hypokinesis.
Normal right ventricular size and function.
Mild mitral stenosis with mean gradient 6 mmHg, HR 101.
Mild aortic stenosis.
Moderate aortic regurgitation.
Right heart pressures could not be determined.
Compared to prior from October 10, 2024, LV function is now mildly reduced estimated at 45-50%, previously moderately reduced and estimated at 35-40%, and MR is now mild,
previously moderate.
- daily weights
- I & Os
- continue aspirin, folic acid, furosemide and metoprolol
- increase furosemide 20mg daily g
#CKD Stage III
BUN 37, Creat 1.5, eGFR 36.12
- monitor BMP
#anxiety/depression
- continue bupropion and sertraline
Code status: full code
DVT prophylaxis: lovenox sq
[2025-04-29 21:39] VITALS: BP 131/76
[2025-04-29 22:06] VITALS: BMI 31.2
[2025-04-30] VITALS (7 sets, daily range): BP systolic 131–162; BP diastolic 55–77; BMI 31.2
[2025-04-30] MEDS: VIBRAMYCIN 100 MG PO ×3 (02:33→19:35)
[2025-04-30] MEDS: DUONEB 3 ML INH ×5 (03:09→19:59)
[2025-04-30 07:30] LABS: Hematocrit 32.2 % (37.0-47.0); Hemoglobin 9.9 g/dL (12.0-16.0); Mean Corp Hgb Conc. 30.7 g/dL (33.0-37.0); Mean Corpuscular Hgb 26.9 pg (27.0-31.0); Mean Corpuscular Volume 87.5 fL (81.0-99.0); Mean Platelet Volume 9.8 fL (7.4-10.4); Platelet Count 365 10^3/uL (130-400); Red Blood Cell Count 3.68 10^6/uL (4.20-5.40); Red Cell Dist. Width 14.2 % (11.5-14.5); White Blood Cell Count 7.8 10^3/uL (4.8-10.8)
[2025-04-30] MEDS: PULMICORT 0.25 MG INH (07:30)
[2025-04-30 07:51] LABS: Blood Urea Nitrogen 39 mg/dl (7-17); Calcium 8.8 mg/dl (8.4-10.2); Carbon Dioxide 28 mmol/L (22-30); Chloride 105 mmol/L (98-107); Estimated Creatinine Clearance 35 ml/min; Glucose 169 mg/dl (70-99); Potassium 4.7 mmol/L (3.5-5.1); Sodium 140 mmol/L (135-145); eGFR 36.12
--- NOTE | 2025-04-30 08:00 | W.PN.HOSP.TC ---
Today's Communication/Plan
-
IV Lasix, IV steroids
Assessment / Plan
Assessment / Plan
Physical Exam
General: Not in acute distress
HEENT: Normocephalic, Moist mucous membranes
Respiratory: Wheezes, Rhonchi and Other (mild tachypnea, increased O2 requirements to 4 ot 5liters )
Cardiac: S1/S2 and Regular Rhythm
GI: Soft, Non Tender, Non Distended and Normal Bowel Sounds
Musculoskeletal: No Cyanosis and No Edema
Skin: Warm. Dry.
Neuro: Awake, Alert, AO x 3 and Nonfocal/grossly intact
Psych: Calm
Assessment/Plan
75 y/o female with PMH significant for COPD, chronic hypoxemic respiratory failure on home O2, chronic HFmrEF and CKD who presented to ED complaining of cough and SOB. Patient was recently admitted 04/23 - 04/25 for SOB and weight gain and treated
with IV diuresis as well as increase in her chronic prednisone dosing. Patient notes that she felt improved at discharge. Since recent hospital discharge, she reports development of hacking cough intermittently productive of thick, white mucus.
She notes chest discomfort due to persistent coughing. Increased SOB and on 04/29/25 morning, her SpO2 was in the low 80s and would not increase despite increasing her home O2 from 3lpm to 4 lpm.
#Acute on Chronic Hypoxemic Respiratory Failure
#Acute on chronic respiratory failure likely 2/2 acute COPD exacerbation and Asthma (patient has COPD and Asthma overlap)
#COPD with Acute Exacerbation / Acute Bronchitis
Changed PO steroids to IV steroids. Appreciate pulmonary eval which was requested given patient is coming in with acute COPD recurrence in such a short time period
Montelukast
Nebs ATC and PRN.
Continue doxycycline BID given cough / change in mucus production.
Wean O2 back to baseline (3 lpm) as able.
#Acute on Chronic HFmrEF
-Switched PO Lasix to IV Lasix
-Patient had acute CHF very recently, and given recurrence, consulted cardiology, appreciate their evaluation
- daily weights
- I & Os
#CKD III
BUN 37, Creat 1.5, eGFR 36.12
- monitor BMP
#Anxiety / Depression
- continue bupropion and sertraline
DVT Prophylaxis: Lovenox
Code Status: Full Code
Anticipated Discharge: > 48 hours
Subjective/Interval History
-
Date of Service: April 30, 2025
Patient was seen and examined. She reported her symptoms have improved.
Objective Data
-
Labs:
Laboratory Results
04/29/25 04/30/25
20:01 05:44
WBC 19.1 H 7.8
Hgb 10.5 L 9.9 L
Hct 34.5 L 32.2 L
Plt Count 375 365
Sodium 141 140
Potassium 4.7 4.7
Chloride 110 H 105
Carbon Dioxide 24 28
BUN 37 H 39 H
Creatinine 1.5 H 1.5 H
Glucose 119 H 169 H
Calcium 9.1 8.8
Total Bilirubin 0.5
AST 18
ALT 16
Alkaline Phosphatase 117
Vital Signs:
Vital Signs
Temp Pulse Resp BP Pulse Ox
97.8 F 80 20 138/73 92
04/30/25 03:40 04/30/25 07:34 04/30/25 07:34 04/30/25 03:40 04/30/25 07:34
[2025-04-30] MEDS: OSCAL 500 + D 1000 MG PO (09:06)
[2025-04-30] MEDS: VITAMIN B1 100 MG PO (09:06)
[2025-04-30] MEDS: FOLVITE 1 MG PO (09:06)
[2025-04-30] MEDS: ZOLOFT 50 MG PO (09:06)
[2025-04-30] MEDS: DELTASONE 40 MG PO (09:06)
[2025-04-30] MEDS: LOW STRENGTH ASPIRIN 81 MG PO (09:06)
[2025-04-30] MEDS: WELLBUTRIN XL (24 hour extended release) 150 MG PO (09:06)
[2025-04-30] MEDS: LASIX 20 MG PO (09:06)
[2025-04-30] MEDS: CLARITIN 10 MG PO (09:06)
[2025-04-30] MEDS: ROBITUSSIN 200 MG PO (09:18)
[2025-04-30] MEDS: FLEXERIL 5 MG PO (09:51)
--- NOTE | 2025-04-30 12:35 | CM ---
Addendum entered by Radha Cardoso RN 04/30/25 12:44:
CM consult for [employer] Directive received. Blank packet of [employer] Directive provided to the patient.
Original Note:
Reviewed the chart notes and spoke with the patient at the bedside. The patient was recently hospitalized (04/23-04/25) to home with [facility]. The patient resides with her daughter and grandsons in a two story home with two steps to enter. The
patient has a first floor set-up. The patient has a rollator, rolling walker, wheelchair, transport chair, cane, and O2 through [employer]. The patient has been to [facility] in the past. The patient confirmed her pharmacy of choice is [address]
[place]. CM continues to be available to patient/family and is monitoring medical plan for needs at discharge.
Plan: Discharge to home with resumption of [facility]
[place]
[2025-04-30] MEDS: SOLU-MEDROL PF 40 MG IV ×2 (13:40→19:35)
--- NOTE | 2025-04-30 15:23 | CON.CAR ---
Addendum entered and electronically signed by Emily Desai MD 04/30/25 16:26:
I saw and evaluated the patient. I reviewed the resident�s note and agree with findings and plan as documented in the resident�s note.
75 year-old with with HFmrEF (EF 45-50%), NICM, & steroid dependent COPD, on 3-4L O2 at home, recently presented to [facility] with HF and COPD exacerbation 1 week ago. Discharged after IV diuresis and increased steroid dosing on 04-25-25. However she
held lasix for several days per directions given concern of azotemia and then resumed, but began to experience increased abdominal distention and shortness of breath. She reports she never has volume retention in her legs. She had increased
wheezing at home. Additionally, she is a salt addict. On exam she is morbidly obese. Heart sounds are caudally displaced. S1-S2 with a 2 out of 6 crescendo decrescendo murmur in the left lower sternal border, respiratory effort increased,
diffuse wheezing in all areas abdomen is obese, extremities are 1-2+ pitting edema bilaterally. EKG shows normal sinus rhythm. Recent echo from 04/22/2025 LVEF 45 to 50% mild global HK, mild mitral stenosis, mild aortic stenosis. Moderate aortic
regurgitation. Overall, presentation is concerning for multifactorial issues leading to hypoxia. Acute on chronic heart failure with mildly reduced EF. I suspect we need to transition to an agent more reliably absorbed with right heart failure
symptoms. I did personally review her echo and no signs of cor pulmonale. Continue with IV diuresis which requires intensive monitoring of renal function, lites and vital signs. I do suspect we will need to accept some degree of azotemia to
achieve adequate symptomatic control. Additionally, she will need to become compliant with CHF plan to offer her any chance at success. COPD exacerbation steroids have been increased care per medicine. Valve disease is mild to moderate. Continue
to monitor over time. No indication to repeat echocardiogram this admission as was just completed 1 week prior.
Will follow
Original Note:
Consultation
Consultation Request
Date/Time Consultation Requested: 04-30-25
Date/Time Consultation Performed: 04-30-25
Requesting Provider: Dr. Sunny Solorio
Performing Provider: Dr. Emily Desai
Reason for Consultation: [facility] HFmrEF
Medical History
-
Chief Complaint: Dyspnea at rest
History of Present Illness:
Flory Gregg, a 75 year-old with with HFmrEF (EF 45-50%), NICM, & steroid dependent COPD, on 3-4L O2 at home, recently presented to [facility] with HF and COPD exacerbation 1 week ago. Discharged after IV diuresis and increased steroid dosing on
04-25-25. She was discharged home on furosemide 10 mg to be started 3 days after discharge, on 04-28-25. She experienced progressive dyspnea on exertion after discharge, which continued at rest eventually - she came back to the hospital on 04-29-25.
Describes significant fatigue with walking a couple of steps and shortness of breath that was present at rest. Unable to ambulate to the bathroom of her hospital room due to significant dyspnea. She usually holds fluid in her abdomen and reports
increased distention post-discharge.
Past Medical History
Past Medical History: CHF (HFrEF), COPD, HTN and Valvular Disease (mild LFLG , mod AR, mod MR)
Past Surgical History: Cholecystectomy and Orthopedic
Social History
Tobacco: Former Smoker
Alcohol: Former
Living: With Family (Daughter)
Employment: Retired
Family History
Family History: Reviewed & Not Pertinent
Allergies / Home Medications
Allergy/AdvReac Type Severity Reaction Status Date / Time
ampicillin Allergy Hives Verified 04/29/25 19:27
coconut Allergy Hives Verified 04/29/25 19:27
mustard Allergy Hives Verified 04/29/25 19:27
�Medication �Instructions �Recorded �Confirmed �Type
melatonin 5 mg tablet 10 mg PO HSPRN PRN sleep 06/22/24 04/29/25 History
loratadine 10 mg tablet (Claritin) 10 mg PO DAILY Allergies 10/08/24 04/29/25 History
aspirin 81 mg chewable tablet 81 mg PO DAILY #30 tabs 10/22/24 04/29/25 Rx
metoprolol succinate 25 mg 25 mg PO HS #30 tabs 10/22/24 04/29/25 Rx
tablet,extended release 24 hr
oxycodone 5 mg tablet 5 mg PO Q6HPRN PRN severe pain #10 10/22/24 04/29/25 Rx
tabs
acetaminophen 325 mg tablet 650 mg (2 x 325 mg) PO Q4HPRN PRN 11/15/24 04/29/25 Rx
mild pain or temp >/= 100.4 F #0
tabs
bupropion HCl 150 mg 24 hr tablet, 150 mg PO DAILY #0 tabs 11/15/24 04/29/25 Rx
extended release
calcium 500 mg (as 2 tab PO DAILY 30 days #60 tabs 11/15/24 04/29/25 Rx
carbonate)-vitamin D3 5 mcg (200
unit) tablet (Oyster Shell
Calcium-Vitamin D3)
folic acid 1 mg tablet 1 mg PO DAILY #30 tabs 11/15/24 04/29/25 Rx
sertraline 50 mg tablet 50 mg PO DAILY 30 days #30 tabs 11/15/24 04/29/25 Rx
furosemide 20 mg tablet (Lasix) 10 mg (1/2 x 20 mg) PO DAILY #30 04/25/25 04/29/25 Rx
tabs
albuterol sulfate 90 mcg/actuation 2 inh inhalation R Q6HPRN PRN 04/29/25 04/29/25 History
aerosol inhaler (Ventolin HFA) shortness of breath or wheezing
budesonide 0.25 mg/2 mL suspension 0.25 mg inhalation R QID 04/29/25 04/29/25 History
for nebulization Lung/Breathing Issues
guaifenesin 100 mg/5 mL oral liquid 200 mg PO Q6HPRN PRN cough 04/29/25 04/29/25 History
ipratropium 0.5 mg-albuterol 3 mg 3 ml inhalation R BID 04/29/25 04/29/25 History
(2.5 mg base)/3 mL nebulization Lung/Breathing Issues
soln
prednisone 10 mg tablet 10 mg PO DAILY Anti-Inflammatory 04/29/25 04/29/25 History
thiamine HCl (vitamin B1) 100 mg 100 mg PO DAILY Supplement 04/29/25 04/29/25 History
tablet
Review of Systems
-
History Source: Patient
All other systems: Negative unless noted
Constitutional: Fatigue
EENT: No Symptoms
Respiratory: Trouble Breathing
Cardiac: No Symptoms
Abdomen/GI: No Symptoms
: No Symptoms
Musculoskeletal: No Symptoms
Skin: No Symptoms
Neurological: No Symptoms
Endocrine: No Symptoms
Hematologic/Lymphatic: No Symptoms
Physical Exam
Vital Signs
Temp Pulse Resp BP Pulse Ox
97.8 F 77 16 131/63 97
04/30/25 11:00 04/30/25 11:07 04/30/25 11:07 04/30/25 11:00 04/30/25 11:07
Lab Results
04/30/25 05:44
04/30/25 05:44
Pwj-P-Gjsaxkioecn Pept 1160 pg/ml 04/29/25 20:01
Physical Exam
General: No Apparent Distress and Comfortable
HEENT: Normocephalic, Anicteric, Moist Mucous Membranes and Atraumatic
Respiratory: Wheezes, Crackles, Non Labored Respirations and Other (4L NC)
Cardiac: S1/S2, Regular Rhythm and Murmur
GI: Soft, Non Tender and Distended
Genito-urinary: No Costovertebral Tender
Musculoskeletal: No Clubbing, No Cyanosis and No Edema
Neuro: Awake, Alert, Oriented and No Motor Deficits
Hematologic/Lymphatic: No Lymphadenopathy
Psych: Calm
Impression / Plan
-
Dyspnea on exertion
- Likely multifactorial with underlying lung disease, COPD exacerbation and HF exacerbation.
- Pulmonary following
- Continue steroids for COPD exac
- HF management as below
Acute on chronic heart failure with mildly reduced ejection fraction
- Volume overloaded; holding it in her abdomen.
- On furosemide 10 mg once a day as an outpatient.
- Would prefer to switch to torsemide.
- IV furosemide 20 mg twice a day for now.
- May have to accept some degree of azotemia to maintain euvolemia.
- GDMT as tolerated
-LINDA/ARB/ARNI: She had hypotension with Entresto in the past
-SGLT2 inhibitor: Cost prohibitive
-Aldosterone agonist: Can consider as an outpatient if RF allows
-Beta yin: Metoprolol succinate 25 mg
-Isosorbide/Hydralazine: Not indicated
- Heart failure education
- TTE 04/22/2025: LVEF 45-50%, mild MS, mild , moderate AR
- Standing daily weights, I&Os, and sodium/fluid restriction.
Valvular heart disease
-TTE 04/22/2025: LVEF 45-50%, mild MS, mild , moderate AR
-Mild low gradient aortic stenosis by TTE and RHC
CKD stage IIIb
- Follow BMP.
Chronic hypoxic respiratory failure, on 3 L nasal cannula at baseline, in the setting of COPD
Severe COPD, steroid-dependent
Fasting hyperglycemia, HbA1c 5.4
Chronic back pain
Palliative care, currently enrolled
[2025-04-30] MEDS: LASIX 20 MG IV (15:30)
[2025-04-30] MEDS: SINGULAIR 10 MG PO (17:35)
[2025-04-30] MEDS: LOVENOX 40 MG SC (17:36)
[2025-04-30] MEDS: PULMICORT 0.5 MG INH (19:59)
[2025-04-30] MEDS: TOPROL XL 25 MG PO (20:51)
[2025-04-30] MEDS: TYLENOL 650 MG PO (22:48)
[2025-04-30] MEDS: MELATONIN 10 MG PO (22:50)
[2025-05-01 03:00] VITALS: BP 142/75
--- NOTE | 2025-05-01 04:17 | DOWNTIME ---
Addendum entered by Jessie Goldberg RN 05/01/25 14:20:
Correction: There was a [employer] Client [employer] Downtime on 05/01/2025 from 0100 to 05/01/2025 at 0415.
Original Note:
There was a [employer] Client [employer]ender Downtime on 04/30/2025 from 0100 to 05/01/2025 at 0415. Downtime documentation of patient's care, including medication administrations, has been reconciled in the electronic record per guidelines. Refer to the
patient's paper chart under the miscellaneous tab to see printed paper medication records and downtime forms.
[2025-05-01 05:34] VITALS: BMI 31.2
[2025-05-01] MEDS: DUONEB 3 ML INH ×4 (07:24→21:05)
[2025-05-01] MEDS: PULMICORT 0.5 MG INH ×2 (07:24→21:04)
[2025-05-01 07:25] VITALS: BP 152/70
[2025-05-01 07:32] LABS: % Basophils 0.1 % (0-2); % Immature Granulocytes 1.1 % (0-0.5); % Lymphocytes 5.2 % (20.5-51.1); % Monocytes 3.8 % (1.7-9.3); % Neutrophils 89.8 % (42.2-75.2); Absolute Immature Granulocytes 0.2 10^3/uL (0-0.05); Absolute Lymphocytes 0.7 10^3/uL (1.2-3.4); Absolute Monocytes 0.5 10^3/uL (0.1-0.6); Absolute Neutrophils 12.6 10^3/uL (1.4-6.5); Hematocrit 31.6 % (37.0-47.0); Hemoglobin 9.9 g/dL (12.0-16.0); Mean Corp Hgb Conc. 31.3 g/dL (33.0-37.0); Mean Corpuscular Hgb 27.4 pg (27.0-31.0); Mean Corpuscular Volume 87.5 fL (81.0-99.0); Mean Platelet Volume 9.7 fL (7.4-10.4); Nucleated Red Blood Cells % 0 %; Platelet Count 389 10^3/uL (130-400); Red Blood Cell Count 3.61 10^6/uL (4.20-5.40); Red Cell Dist. Width 14.3 % (11.5-14.5); White Blood Cell Count 14.1 10^3/uL (4.8-10.8)
[2025-05-01 07:50] LABS: Blood Urea Nitrogen 49 mg/dl (7-17); Carbon Dioxide 30 mmol/L (22-30); Chloride 100 mmol/L (98-107); Estimated Creatinine Clearance 31 ml/min; Glucose 174 mg/dl (70-99); Potassium 4.5 mmol/L (3.5-5.1); Sodium 136 mmol/L (135-145); eGFR 31.08
[2025-05-01] MEDS: LASIX IV (08:30)
[2025-05-01] MEDS: CLARITIN 10 MG PO (08:32)
[2025-05-01] MEDS: VIBRAMYCIN 100 MG PO ×2 (08:32→19:59)
[2025-05-01] MEDS: OSCAL 500 + D 1000 MG PO (08:32)
[2025-05-01] MEDS: LASIX PO (08:34)
[2025-05-01] MEDS: ZOLOFT 50 MG PO (08:35)
[2025-05-01] MEDS: WELLBUTRIN XL (24 hour extended release) 150 MG PO (08:35)
[2025-05-01] MEDS: LOW STRENGTH ASPIRIN 81 MG PO (08:35)
[2025-05-01] MEDS: FOLVITE 1 MG PO (08:35)
[2025-05-01] MEDS: SOLU-MEDROL PF 40 MG IV ×2 (08:36→19:59)
[2025-05-01] MEDS: VITAMIN B1 100 MG PO (08:36)
[2025-05-01] MEDS: ROBITUSSIN 200 MG PO ×2 (08:51→18:12)
--- NOTE | 2025-05-01 08:53 | W.PN.CD ---
Today's Communication / Plan
-
- LVEF improved from 35% to 45-50% on transthoracic echocardiogram.
- Cardiac BNP was minimally elevated at 1160.
- BUN and creatinine are starting to increase, consistent with overdiuresis.
- Will transition the patient to Lasix 20 mg once daily, which should be her home.
- Patient with significant wheezing and tight breath sounds on examination--primary cause of dyspnea is COPD/asthma exacerbation; continue further recommendations as per Pulmonary.
- No further cardiac recommendations at this time.
Impression / Plan
-
Dyspnea on exertion
- Likely multifactorial--but primarily secondary to underlying lung disease, COPD/asthma exacerbation (steroid-dependent) with mild superimposed CHF exacerbation.
- Pulmonary following
- Continue steroids for COPD exac
Acute on chronic heart failure with mildly reduced ejection fraction
- LVEF improved from 35% to 45-50% on transthoracic echocardiogram.
- Cardiac BNP was minimally elevated at 1160.
- BUN and creatinine are starting to increase, consistent with overdiuresis.
- Will transition the patient to Lasix 20 mg once daily, which should be her home.
- Patient with significant wheezing and tight breath sounds on examination--primary cause of dyspnea is COPD/asthma exacerbation; continue further recommendations as per Pulmonary.
- GDMT as tolerated
-LINDA/ARB/ARNI: She had hypotension with Entresto in the past
-SGLT2 inhibitor: Cost prohibitive
-Aldosterone agonist: Can consider as an outpatient if RF allows
-Beta yin: Continue metoprolol succinate 25 mg
-Isosorbide/Hydralazine: Not indicated
- TTE 04/22/2025: LVEF 45-50%, mild MS, mild , moderate AR
Valvular heart disease
-TTE 04/22/2025: LVEF 45-50%, mild MS, mild , moderate AR
-Mild low gradient aortic stenosis by TTE and RHC
CKD stage IIIb
- Rising creatinine as above.
Fasting hyperglycemia, HbA1c 5.4
Chronic back pain
Palliative care, currently enrolled
Physical Exam
Vital Signs/Labs
Vital Signs
Temp Pulse Resp BP Pulse Ox
97.8 F 67 18 152/70 96
05/01/25 07:25 05/01/25 07:26 05/01/25 07:26 05/01/25 07:25 05/01/25 07:26
04/30/25 05/01/25 05/02/25
06:59 06:59 06:59
Actual Weight 84.912 kg 84.964 kg
05/01/25 06:38
05/01/25 06:38
04/29/25
20:01
Vum-E-Nyrbzdiqyms Pept 1160
Physical Exam
Constitutional: No acute distress and Comfortable
EENT: Anicteric
Cardiovascular: Rhythm & rate is regular, Pedal edema is absent, Systolic murmur present (2/6) and S1S2 is normal
Respiratory: Respiratory effort normal, Wheeze Present and Crackles Present
GI: Soft
Neuro/Psych: AO x 3
Other: Skin (Warm, dry)
Data Reviewed
-
Date of Service: May 01, 2025
EKG: Tracing Personally Visualized and interpreted (Telemetry: Sinus rhythm)
Echo: Tracing Personally Visualized and interpreted (EF 45-50%)
Medical Tests (PFT, Pathology etc): Discussed with Patient
Labs: Labs Reviewed by me
[2025-05-01 11:05] VITALS: BP 135/61
--- NOTE | 2025-05-01 11:09 | CON.PUL ---
Consultation
Consultation Request
Date/Time Consultation Requested: 04/30/2025
Date/Time Consultation Performed: 05/01/2025
Requesting Provider: Sunny Solorio
Performing Provider: Genaro Connolly
Reason for Consultation: Respiratory failure
Medical History
-
Chief Complaint: Shortness of breath
History of Present Illness:
Patient is a very pleasant 75-year-old female with known history of COPD, baseline chronically prednisone 10 mg at home oxygen dependent at about 3 L. Patient also noted to have history of congestive heart failure, obstructive sleep apnea who was
recently discharged from the hospital for COPD exacerbation and was discharged on tapering dose of steroids. Patient states that she did well for about a day and then she started getting short of breath again and which progressively worsened over
the next few days and presented back to the emergency room. She was noted to be quite wheezy on exam and was also felt to be mildly volume overloaded. Pulmonary consultation was requested for further input.
Past Medical History: Reports Other
Additional Past Medical History:
Chronic Hypoxic Respiratory Insufficiency
COPD
Chronic HFpEF
Valvular Heart Disease: Mild Aortic Stenosis, Mild/Moderate Mitral Regurg
CKD Stage III
Chronic Back Pain secondary to L2 Compression Fracture
Anxiety/Depression
Morbid Obesity
Obstructive Sleep Apnea
Past Surgical History: Reports Other
Additional Past Surgical History:
Cholecystectomy
Left Shoulder Reconstruction
Fasciotomy
Social History
Tobacco: Former Smoker
Alcohol: None
Drug: None
Living: With Family
Employment: Retired
Family History
Family History: Not pertinent
Allergies / Home Medications
Allergies / Home Medications
Allergies
Allergy/AdvReac Type Severity Reaction Status Date / Time
ampicillin Allergy Hives Verified 04/29/25 19:27
coconut Allergy Hives Verified 04/29/25 19:27
mustard Allergy Hives Verified 04/29/25 19:27
Home Medications
�Medication �Instructions �Recorded �Confirmed �Last Taken �Type
melatonin 5 mg tablet 10 mg PO HSPRN PRN sleep 06/22/24 04/29/25 Unknown History
loratadine 10 mg tablet (Claritin) 10 mg PO DAILY Allergies 10/08/24 04/29/25 04/29/25 History
aspirin 81 mg chewable tablet 81 mg PO DAILY #30 tabs 10/22/24 04/29/25 04/29/25 Rx
metoprolol succinate 25 mg 25 mg PO HS #30 tabs 10/22/24 04/29/25 04/28/25 Rx
tablet,extended release 24 hr
oxycodone 5 mg tablet 5 mg PO Q6HPRN PRN severe pain #10 10/22/24 04/29/25 04/29/25 Rx
tabs
acetaminophen 325 mg tablet 650 mg (2 x 325 mg) PO Q4HPRN PRN 11/15/24 04/29/25 Unknown Rx
mild pain or temp >/= 100.4 F #0
tabs
bupropion HCl 150 mg 24 hr tablet, 150 mg PO DAILY #0 tabs 11/15/24 04/29/25 04/29/25 Rx
extended release
calcium 500 mg (as 2 tab PO DAILY 30 days #60 tabs 11/15/24 04/29/25 04/29/25 Rx
carbonate)-vitamin D3 5 mcg (200
unit) tablet (Oyster Shell
Calcium-Vitamin D3)
folic acid 1 mg tablet 1 mg PO DAILY #30 tabs 11/15/24 04/29/25 04/29/25 Rx
sertraline 50 mg tablet 50 mg PO DAILY 30 days #30 tabs 11/15/24 04/29/25 04/29/25 Rx
furosemide 20 mg tablet (Lasix) 10 mg (1/2 x 20 mg) PO DAILY #30 04/25/25 04/29/25 04/29/25 Rx
tabs
albuterol sulfate 90 mcg/actuation 2 inh inhalation R Q6HPRN PRN 04/29/25 04/29/25 Unknown History
aerosol inhaler (Ventolin HFA) shortness of breath or wheezing
budesonide 0.25 mg/2 mL suspension 0.25 mg inhalation R QID 04/29/25 04/29/25 04/29/25 History
for nebulization Lung/Breathing Issues
guaifenesin 100 mg/5 mL oral liquid 200 mg PO Q6HPRN PRN cough 04/29/25 04/29/25 04/28/25 History
ipratropium 0.5 mg-albuterol 3 mg 3 ml inhalation R BID 04/29/25 04/29/25 04/29/25 History
(2.5 mg base)/3 mL nebulization Lung/Breathing Issues
soln
prednisone 10 mg tablet 10 mg PO DAILY Anti-Inflammatory 04/29/25 04/29/25 04/29/25 History
thiamine HCl (vitamin B1) 100 mg 100 mg PO DAILY Supplement 04/29/25 04/29/25 04/29/25 History
tablet
Review of Systems
-
Hematologic/Lymphatic: Other (All 14 systems reviewed and negative except as stated above in the history of present illness.)
Vitals / Labs / Diagnostic Testing
Vital Signs
Temp Pulse Resp BP Pulse Ox
97.6 F 77 16 148/73 97
04/30/25 07:05 04/30/25 11:07 04/30/25 11:07 04/30/25 09:06 04/30/25 11:07
Lab Data
04/30/25 05:44
04/30/25 05:44
Microbiology
04/29/25 20:01 Nasal Swab Influenza Types A & B (EDUARD) - Final
Negative for Influenza A & B, NAAT
Negative results must be combined with clinical observations
and patient history.
Nucleic Acid Amplification test (NAAT)performed on the
[employer] platform.
Diagnostic Testing:
Physical Exam
-
HEENT: Normocephalic
Cardiovascular: S1/S2 and Peripheral Edema (None)
Respiratory: Wheeze (b/l, diffuse ) and Rales (None)
GI: Soft and Non Distended
Neurology: Awake and Alert
Skin: Warm
General: Comfortable
Assessment
-
#1. Acute on chronic hypoxic respiratory failure.
- Appears to be due to exacerbation of obstructive airway disease
- Improving, on 4L O2 no, at baseline, on 3 L. Wean as tolerated.
#2. 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
- Suspect patient has significant component of asthma in addition to COPD. Eosinophil count noted 100-800 at times, also significant allergy symptoms, seasonal variation and frequent symptoms of allergic rhinitis with post nasal discharge
- Continue Duoneb qid, increased Budesonide to 0.5 mg BID, increase steroids to 40 mg IV BID Solumedrol.
- Start nightly Montelukast and resume Loratadine. Continue Doxycycline.
- Start Flonase at discharge
- Considering frequent exacerbations, eosinophilia and chronic steroid dependence, patient will likely benefit from initiation of Biologics, e.g., Dupilumab. Will pursue this as out patient.
#3. Chronic heart failure, with reduced ejection fraction, LVEF 40 to 50%.
- Continue lasix. Appears to be euvolemic.
#4. Pulmonary hypertension, mild.
- Primarily group II with underlying CHF, might have a component of group III with underlying emphysema. Right heart cath showed mean pulmonary artery pressure around 30 in 2023 with the pulmonary capillary wedge pressure 16.
-Continue supplemental O2, considering patient has pulmonary hypertension, target oxygen saturation more than 90%.
Other medical diagnoses:
- Seasonal allergies
- Chronic allergic rhinitis
Total time spent on this consultation/encounter _75___ minutes which includes review of history, physical exam, medications, laboratory data, personal review of imaging, extensive review of outpatient records, discussion with care team and
respiratory therapy.
Data:
CXR 04/2025: Mild pulmonary edema, progressed.
CT chest 11/08/24- 1. Unchanged 6 to 7 mm nodule within the right upper lobe and unchanged 3 to 4 mm nodule within the left upper lobe. There is a new 4 mm groundglass nodule within the right middle lobe, possibly infectious or inflammatory in
nature given appearance. Small amount of irregular airspace consolidation within the posterior left lower lobe, presumably atelectasis with pneumonia unable to be excluded in the appropriate clinical setting. Mild centrilobular emphysema.
ECHO 04/22/2025- Normal LV size with mildly reduced systolic function. LVEF is 45-50% by visual estimation. Mild global hypokinesis. Normal right ventricular size and function. Mild mitral stenosis with mean gradient 6 mmHg, HR 101. Mild aortic
stenosis. Moderate aortic regurgitation. Right heart pressures could not be determined. Compared to prior from October 10, 2024, LV function is now mildly reduced estimated at 45-50%, previously moderately reduced and estimated at 35-40%, and MR
is now mild, previously moderate.
LHC/RHC 10/19/24- LV 117/11 (EDP 13) mmHg - AO 112/52 (mean 76) mmHg - RA 10 mmHg - RV 47/8 (EDP 11) mmHg
PA 46/20 (mean 30) mmHg - PCWP 16 mmHg - SaO2 93.7 % - SvO2 69.0 % - CO/CI 6.0/3.0 L/min/m2
SVR 878 dsc*-5 - PVR 2.3 Wood Units
Spirometry 03/22/24: FEV1 1.17L 52%, FVC 2.23L 75%, ratio 52, post FEV1 1.2L 54%, no BD response (moderate obstruction, stable)��������
PFTs 07/02/22: FEV1 1.25L 54%, FVC 2.09L 68%, ratio 60. Post FEV1 1.32L 57%. No significant bronchodilator response. TLC 4.34L 84%, DLCO 50% (moderate obstruction, normal volumes, moderate diffusion impairment)
--- NOTE | 2025-05-01 11:10 | CM ---
Reviewed the chart notes. Patient to be transitioned from IV Lasix to PO. CM continues to be available to patient/family and is monitoring medical plan for needs at discharge.
Plan: Discharge to home with resumption of [employer].
[employer]
[2025-05-01 15:20] VITALS: BP 148/74
--- NOTE | 2025-05-01 16:19 | W.PN.HOSP.TC ---
Today's Communication/Plan
-
Continue IV steroids
See plan
Assessment / Plan
Assessment / Plan
Physical Exam
General: Not in acute distress
HEENT: Normocephalic, Moist mucous membranes
Respiratory: Wheezes, Rhonchi and Other (mild tachypnea, increased O2 requirements to 4 ot 5liters )
Cardiac: S1/S2 and Regular Rhythm
GI: Soft, Non Tender, Non Distended and Normal Bowel Sounds
Musculoskeletal: No Cyanosis and No Edema
Skin: Warm. Dry.
Neuro: Awake, Alert, AO x 3 and Nonfocal/grossly intact
Psych: Calm
Assessment/Plan
75 y/o female with PMH significant for COPD, chronic hypoxemic respiratory failure on home O2, chronic HFmrEF and CKD who presented to ED complaining of cough and SOB. Patient was recently admitted 04/23 - 04/25 for SOB and weight gain and treated
with IV diuresis as well as increase in her chronic prednisone dosing. Patient notes that she felt improved at discharge. Since recent hospital discharge, she reports development of hacking cough intermittently productive of thick, white mucus.
She notes chest discomfort due to persistent coughing. Increased SOB and on 04/29/25 morning, her SpO2 was in the low 80s and would not increase despite increasing her home O2 from 3lpm to 4 lpm.
#Acute on Chronic Hypoxemic Respiratory Failure
#Acute on chronic respiratory failure likely 2/2 acute COPD exacerbation and Asthma (patient has COPD and Asthma overlap)
#COPD with Acute Exacerbation / Acute Bronchitis
At the time of admission was placed on PO steroids, later switched to IV steroids
Appreciate pulmonary eval which was requested given patient is coming in with acute COPD recurrence in such a short time period
With high eosinophils and allergy symptoms, concern for Asthma on top of the COPD
Start Montelukast and continue home Loratadine
On discharge, start Flonase
Continue Doxycycline
Continue bronchodilators and ICS
Continue doxycycline BID given cough / change in mucus production.
Wean O2 back to baseline (3 lpm) as able.
#Acute on Chronic HFmrEF
-Switched PO Lasix to IV Lasix
-BUN and creatinine are starting to increase, suggesting overdiuresis -->transition Lasix to 20 mg PO daily
-Patient had acute CHF very recently, and given recurrence, consulted cardiology, appreciate their evaluation
-Daily weights, I & Os
-Continue metoprolol succinate 25 mg
#Pulmonary Hypertension
-Continue CHF and COPD treatment
-Maintain SpO2>90%
#CKD Stage IIIb
- monitor BMP
#Anxiety / Depression
- continue bupropion and sertraline
#Seasonal allergies
#Chronic allergic rhinitis
DVT Prophylaxis: Lovenox
Code Status: Full Code
Anticipated Discharge: > 48 hours
Subjective/Interval History
-
Date of Service: May 01, 2025
Patient was seen and examined. She was feeling a bit better, denied any new shortness of breath or chest pain.
Objective Data
-
Labs:
Laboratory Results
05/01/25
06:38
WBC 14.1 H
Hgb 9.9 L
Hct 31.6 L
Plt Count 389
Sodium 136
Potassium 4.5
Chloride 100
Carbon Dioxide 30
BUN 49 H
Creatinine 1.7 H
Glucose 174 H
Calcium 9.0
Vital Signs:
Vital Signs
Temp Pulse Resp BP Pulse Ox
98.2 F 83 18 148/74 91
05/01/25 15:20 05/01/25 15:31 05/01/25 15:31 05/01/25 15:20 05/01/25 15:31
I&O
04/30/25 05/01/25 05/02/25
06:59 06:59 06:59
Intake Total 840 / 840
Balance 840 / 840
[2025-05-01] MEDS: LOVENOX 40 MG SC (18:11)
[2025-05-01] MEDS: SINGULAIR 10 MG PO (18:11)
[2025-05-01 19:35] VITALS: BP 127/71
[2025-05-01] MEDS: TOPROL XL 25 MG PO (22:37)
[2025-05-01] MEDS: TYLENOL 650 MG PO (22:38)
[2025-05-01] MEDS: MELATONIN 10 MG PO (22:38)
[2025-05-01 23:04] VITALS: BP 113/63
[2025-05-02] VITALS (7 sets, daily range): BP systolic 119–142; BP diastolic 59–75; BMI 30.2
[2025-05-02] MEDS: PULMICORT 0.5 MG INH ×2 (07:16→20:23)
[2025-05-02] MEDS: DUONEB 3 ML INH ×4 (07:16→20:23)
[2025-05-02 07:52] LABS: Blood Urea Nitrogen 51 mg/dl (7-17); Carbon Dioxide 30 mmol/L (22-30); Chloride 106 mmol/L (98-107); Estimated Creatinine Clearance 33 ml/min; Glucose 121 mg/dl (70-99); Potassium 4.7 mmol/L (3.5-5.1); Sodium 138 mmol/L (135-145); eGFR 33.42
[2025-05-02 08:00] LABS: % Basophils 0.1 % (0-2); % Immature Granulocytes 0.8 % (0-0.5); % Lymphocytes 6.6 % (20.5-51.1); % Monocytes 3.5 % (1.7-9.3); Absolute Immature Granulocytes 0.1 10^3/uL (0-0.05); Absolute Lymphocytes 0.9 10^3/uL (1.2-3.4); Absolute Monocytes 0.5 10^3/uL (0.1-0.6); Absolute Neutrophils 11.7 10^3/uL (1.4-6.5); Hematocrit 31.1 % (37.0-47.0); Hemoglobin 9.4 g/dL (12.0-16.0); Mean Corp Hgb Conc. 30.2 g/dL (33.0-37.0); Mean Corpuscular Hgb 26.4 pg (27.0-31.0); Mean Corpuscular Volume 87.4 fL (81.0-99.0); Mean Platelet Volume 9.8 fL (7.4-10.4); Nucleated Red Blood Cells % 0 %; Platelet Count 391 10^3/uL (130-400); Red Blood Cell Count 3.56 10^6/uL (4.20-5.40); Red Cell Dist. Width 14.6 % (11.5-14.5); White Blood Cell Count 13.1 10^3/uL (4.8-10.8)
[2025-05-02] MEDS: SOLU-MEDROL PF 40 MG IV (08:12)
[2025-05-02] MEDS: WELLBUTRIN XL (24 hour extended release) 150 MG PO (08:12)
[2025-05-02] MEDS: OSCAL 500 + D 1000 MG PO (08:12)
[2025-05-02] MEDS: LOW STRENGTH ASPIRIN 81 MG PO (08:12)
[2025-05-02] MEDS: VIBRAMYCIN 100 MG PO ×2 (08:12→21:09)
[2025-05-02] MEDS: FOLVITE 1 MG PO (08:12)
[2025-05-02] MEDS: VITAMIN B1 100 MG PO (08:13)
[2025-05-02] MEDS: ZOLOFT 50 MG PO (08:13)
[2025-05-02] MEDS: CLARITIN 10 MG PO (08:13)
[2025-05-02] MEDS: LASIX 20 MG PO (08:13)
--- NOTE | 2025-05-02 12:23 | CM ---
Reviewed the chart notes and spoke with the patient at the bedside. CM continues to be available to patient/family and is monitoring medical plan for needs at discharge.
Plan: Discharge to home with resumption of [facility].
[facility]
--- NOTE | 2025-05-02 12:58 | W.PN.PUL3 ---
Today's Communication / Plan
-
- Discontinue IV Solu-Medrol, initiate prednisone 60 mg 05/03
- Increase activity as tolerated
- Anticipate discharge over next 24-48 hours
Assessment
-
#1. Acute on chronic hypoxic respiratory failure.
- Appears to be due to exacerbation of obstructive airway disease
- Improving, on 4L O2 no, at baseline, on 3 L. Wean as tolerated.
#2. 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
- Suspect patient has significant component of asthma in addition to COPD. Eosinophil count noted 100-800 at times, also significant allergy symptoms, seasonal variation and frequent symptoms of allergic rhinitis with post nasal discharge
- Continue Duoneb qid, continue budesonide to 0.5 mg BID, switch to p.o. prednisone, 60 mg daily starting 05/03
- Continue nightly Montelukast and Loratadine. Continue Doxycycline.
- Start Flonase at discharge
- Considering frequent exacerbations, eosinophilia and chronic steroid dependence, patient will likely benefit from initiation of Biologics, e.g., Dupilumab. Will pursue this as out patient.
#3. Chronic heart failure, with reduced ejection fraction, LVEF 40 to 50%.
- Continue lasix. Appears to be euvolemic.
#4. Pulmonary hypertension, mild.
- Primarily group II with underlying CHF, might have a component of group III with underlying emphysema. Right heart cath showed mean pulmonary artery pressure around 30 in 2023 with the pulmonary capillary wedge pressure 16.
-Continue supplemental O2, considering patient has pulmonary hypertension, target oxygen saturation more than 90%.
Other medical diagnoses:
- Seasonal allergies
- Chronic allergic rhinitis
Total time spent on this consultation/encounter _45___ minutes which includes review of history, physical exam, medications, laboratory data, personal review of imaging, extensive review of outpatient records, discussion with care team and
respiratory therapy.
Data:
CXR 04/2025: Mild pulmonary edema, progressed.
CT chest 11/08/24- 1. Unchanged 6 to 7 mm nodule within the right upper lobe and unchanged 3 to 4 mm nodule within the left upper lobe. There is a new 4 mm groundglass nodule within the right middle lobe, possibly infectious or inflammatory in
nature given appearance. Small amount of irregular airspace consolidation within the posterior left lower lobe, presumably atelectasis with pneumonia unable to be excluded in the appropriate clinical setting. Mild centrilobular emphysema.
ECHO 04/22/2025- Normal LV size with mildly reduced systolic function. LVEF is 45-50% by visual estimation. Mild global hypokinesis. Normal right ventricular size and function. Mild mitral stenosis with mean gradient 6 mmHg, HR 101. Mild aortic
stenosis. Moderate aortic regurgitation. Right heart pressures could not be determined. Compared to prior from October 10, 2024, LV function is now mildly reduced estimated at 45-50%, previously moderately reduced and estimated at 35-40%, and MR
is now mild, previously moderate.
LHC/RHC 10/19/24- LV 117/11 (EDP 13) mmHg - AO 112/52 (mean 76) mmHg - RA 10 mmHg - RV 47/8 (EDP 11) mmHg
PA 46/20 (mean 30) mmHg - PCWP 16 mmHg - SaO2 93.7 % - SvO2 69.0 % - CO/CI 6.0/3.0 L/min/m2
SVR 878 dsc*-5 - PVR 2.3 Wood Units
Spirometry 03/22/24: FEV1 1.17L 52%, FVC 2.23L 75%, ratio 52, post FEV1 1.2L 54%, no BD response (moderate obstruction, stable)��������
PFTs 07/02/22: FEV1 1.25L 54%, FVC 2.09L 68%, ratio 60. Post FEV1 1.32L 57%. No significant bronchodilator response. TLC 4.34L 84%, DLCO 50% (moderate obstruction, normal volumes, moderate diffusion impairment)
Subjective Data
-
Date of Service:
Date of Service: May 02, 2025
Subjective:
Patient reports feeling better overall however not at her baseline yet.
Review of Systems
Genitourinary: Other (All 14 systems reviewed and negative except as stated above in the history of present illness.)
Objective Data
Data Reviewed
Vital Signs / I&O / Oxygen:
Vital Signs
Temp Pulse Resp BP Pulse Ox
97.9 F 74 18 135/60 96
05/02/25 11:00 05/02/25 11:21 05/02/25 11:21 05/02/25 11:00 05/02/25 11:21
Intake and Output
05/01/25 05/02/25 05/03/25
06:59 06:59 06:59
Intake Total 840 / 840 1560 / 1560
Balance 840 / 840 1560 / 1560
SaO2 96
Nasal Cannula flow liters per 3
minute
Physical Exam
General: Comfortable
HEENT: Normocephalic
Cardiovascular: S1-S2
Respiratory: Wheeze (Wheezing is gradually improving)
GI: Soft and Non Distended
Neurology: Awake and Alert
Skin: Warm
Labs/Micro/Reports
Lab Data
05/02/25 06:43
05/02/25 06:43
Microbiology
04/29/25 20:01 Nasal Swab Influenza Types A & B (EDUARD) - Final
Negative for Influenza A & B, NAAT
Negative results must be combined with clinical observations
and patient history.
Nucleic Acid Amplification test (NAAT)performed on the
[employer] platform.
[2025-05-02] MEDS: DELTASONE 40 MG PO (17:11)
[2025-05-02] MEDS: SINGULAIR 10 MG PO (17:11)
[2025-05-02] MEDS: LOVENOX 40 MG SC (17:11)
--- NOTE | 2025-05-02 17:47 | W.PN.HOSP.TC ---
Today's Communication/Plan
-
See plan
Assessment / Plan
Assessment / Plan
Physical Exam
General: Not in acute distress
HEENT: Normocephalic, Moist mucous membranes
Respiratory: Wheezes, Rhonchi and Other (oxygen requirements back down to 3 L)
Cardiac: S1/S2 and Regular Rhythm
GI: Soft, Non Tender, Non Distended and Normal Bowel Sounds
Musculoskeletal: No Cyanosis and No Edema
Skin: Warm. Dry.
Neuro: Awake, Alert, AO x 3 and Nonfocal/grossly intact
Psych: Calm
Assessment/Plan
75 y/o female with PMH significant for COPD, chronic hypoxemic respiratory failure on home O2, chronic HFmrEF and CKD who presented to ED complaining of cough and SOB. Patient was recently admitted 04/23 - 04/25 for SOB and weight gain and treated
with IV diuresis as well as increase in her chronic prednisone dosing. Patient notes that she felt improved at discharge. Since recent hospital discharge, she reports development of hacking cough intermittently productive of thick, white mucus.
She notes chest discomfort due to persistent coughing. Increased SOB and on 04/29/25 morning, her SpO2 was in the low 80s and would not increase despite increasing her home O2 from 3lpm to 4 lpm.
#Acute on Chronic Hypoxemic Respiratory Failure
#Acute on chronic respiratory failure likely 2/2 acute COPD exacerbation and Asthma (patient has COPD and Asthma overlap)
#COPD with Acute Exacerbation / Acute Bronchitis
At the time of admission was placed on PO steroids, later switched to IV steroids, today switched back to oral steroids
Appreciate pulmonary evaluation which was requested given patient is coming in with acute COPD recurrence in such a short time period
With high eosinophils and allergy symptoms, concern for Asthma on top of the COPD
Start Montelukast and continue home Loratadine
On discharge, start Flonase
Continue Doxycycline
Continue bronchodilators and ICS
Continue doxycycline BID given cough / change in mucus production.
Weaned O2 back to baseline (3 lpm)
#Acute on Chronic HFmrEF
-Switched PO Lasix to IV Lasix
-BUN and creatinine are starting to increase, suggesting overdiuresis -->transitioned Lasix to 20 mg PO daily
-Patient had acute CHF very recently, and given recurrence, consulted cardiology, appreciate their evaluation
-Daily weights, I & Os
-Continue metoprolol succinate 25 mg
#Pulmonary Hypertension
-Continue CHF and COPD treatment
-Maintain SpO2>90%
#CKD Stage IIIb
- monitor BMP
#Anxiety / Depression
- continue bupropion and sertraline
#Seasonal allergies
#Chronic allergic rhinitis
DVT Prophylaxis: Lovenox
Code Status: Full Code
Anticipated Discharge: Within 24 hours
Subjective/Interval History
-
Date of Service: May 02, 2025
Patient was seen and examined. She denied any new symptoms or complaints.
Objective Data
-
Labs:
Laboratory Results
05/02/25
06:43
WBC 13.1 H
Hgb 9.4 L
Hct 31.1 L
Plt Count 391
Sodium 138
Potassium 4.7
Chloride 106
Carbon Dioxide 30
BUN 51 H
Creatinine 1.6 H
Glucose 121 H
Calcium 9.0
Vital Signs:
Vital Signs
Temp Pulse Resp BP Pulse Ox
98.1 F 82 18 133/59 92
05/02/25 15:00 05/02/25 15:32 05/02/25 15:32 05/02/25 15:00 05/02/25 15:32
I&O
05/01/25 05/02/25 05/03/25
06:59 06:59 06:59
Intake Total 840 / 840 1560 / 1560
Balance 840 / 840 1560 / 1560
[2025-05-02] MEDS: FLEXERIL 5 MG PO (21:08)
[2025-05-02] MEDS: TOPROL XL 25 MG PO (21:59)
[2025-05-03] VITALS (7 sets, daily range): BP systolic 125–156; BP diastolic 62–77; BMI 31.6
[2025-05-03] MEDS: DUONEB 3 ML INH ×5 (04:16→19:49)
[2025-05-03 06:29] LABS: % Basophils 0.1 % (0-2); % Lymphocytes 3.8 % (20.5-51.1); % Monocytes 6.5 % (1.7-9.3); % Neutrophils 87.6 % (42.2-75.2); Absolute Immature Granulocytes 0.3 10^3/uL (0-0.05); Absolute Lymphocytes 0.6 10^3/uL (1.2-3.4); Absolute Neutrophils 13.9 10^3/uL (1.4-6.5); Hematocrit 34.7 % (37.0-47.0); Hemoglobin 10.6 g/dL (12.0-16.0); Mean Corp Hgb Conc. 30.5 g/dL (33.0-37.0); Mean Corpuscular Hgb 27.3 pg (27.0-31.0); Mean Corpuscular Volume 89.4 fL (81.0-99.0); Mean Platelet Volume 9.8 fL (7.4-10.4); Nucleated Red Blood Cells % 0 %; Platelet Count 459 10^3/uL (130-400); Red Blood Cell Count 3.88 10^6/uL (4.20-5.40); Red Cell Dist. Width 14.8 % (11.5-14.5); White Blood Cell Count 15.9 10^3/uL (4.8-10.8)
[2025-05-03 06:48] LABS: Blood Urea Nitrogen 56 mg/dl (7-17); Calcium 9.1 mg/dl (8.4-10.2); Carbon Dioxide 27 mmol/L (22-30); Chloride 106 mmol/L (98-107); Estimated Creatinine Clearance 33 ml/min; Glucose 131 mg/dl (70-99); Magnesium 2.4 mg/dl (1.6-2.3); Potassium 4.3 mmol/L (3.5-5.1); Sodium 143 mmol/L (135-145); eGFR 33.42
[2025-05-03] MEDS: PULMICORT 0.5 MG INH ×2 (07:38→19:49)
[2025-05-03] MEDS: LOW STRENGTH ASPIRIN 81 MG PO (08:09)
[2025-05-03] MEDS: LASIX 20 MG PO (08:09)
[2025-05-03] MEDS: WELLBUTRIN XL (24 hour extended release) 150 MG PO (08:09)
[2025-05-03] MEDS: FOLVITE 1 MG PO (08:09)
[2025-05-03] MEDS: VIBRAMYCIN 100 MG PO ×2 (08:10→20:04)
[2025-05-03] MEDS: DELTASONE 60 MG PO (08:10)
[2025-05-03] MEDS: CLARITIN 10 MG PO (08:10)
[2025-05-03] MEDS: VITAMIN B1 100 MG PO (08:10)
[2025-05-03] MEDS: ZOLOFT 50 MG PO (08:10)
[2025-05-03] MEDS: OSCAL 500 + D 1000 MG PO (08:10)
[2025-05-03] MEDS: ROBITUSSIN 200 MG PO ×2 (08:14→21:29)
--- NOTE | 2025-05-03 12:01 | W.PN.PUL3 ---
Today's Communication / Plan
-
- Chest x-ray two-view
- Change DuoNeb to every 4 hours scheduled
Assessment
-
#1. Acute on chronic hypoxic respiratory failure.
- Appears to be due to exacerbation of obstructive airway disease
- Improving, on 4L O2 no, at baseline, on 3 L. Wean as tolerated.
#2. 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
- Suspect patient has significant component of asthma in addition to COPD. Eosinophil count noted 100-800 at times, also significant allergy symptoms, seasonal variation and frequent symptoms of allergic rhinitis with post nasal discharge
- In view of persistent wheezing, change DuoNeb to every 4 hours scheduled, continue budesonide to 0.5 mg BID, prednisone switched to p.o. 60 mg daily
- Continue nightly Montelukast and Loratadine. Continue Doxycycline.
- Start Flonase at discharge
- Considering frequent exacerbations, eosinophilia and chronic steroid dependence, patient will likely benefit from initiation of Biologics, e.g., Dupilumab. Will pursue this as out patient.
- Will repeat a chest x-ray two-view today to evaluate for any developing consolidation or pulmonary edema
#3. Chronic heart failure, with reduced ejection fraction, LVEF 40 to 50%.
- Continue lasix. Appears to be euvolemic.
#4. Pulmonary hypertension, mild.
- Primarily group II with underlying CHF, might have a component of group III with underlying emphysema. Right heart cath showed mean pulmonary artery pressure around 30 in 2023 with the pulmonary capillary wedge pressure 16.
-Continue supplemental O2, considering patient has pulmonary hypertension, target oxygen saturation more than 90%.
Other medical diagnoses:
- Seasonal allergies
- Chronic allergic rhinitis
Total time spent on this consultation/encounter _48___ minutes which includes review of history, physical exam, medications, laboratory data, personal review of imaging, extensive review of outpatient records, discussion with care team and
respiratory therapy.
Data:
CXR 04/2025: Mild pulmonary edema, progressed.
CT chest 11/08/24- 1. Unchanged 6 to 7 mm nodule within the right upper lobe and unchanged 3 to 4 mm nodule within the left upper lobe. There is a new 4 mm groundglass nodule within the right middle lobe, possibly infectious or inflammatory in
nature given appearance. Small amount of irregular airspace consolidation within the posterior left lower lobe, presumably atelectasis with pneumonia unable to be excluded in the appropriate clinical setting. Mild centrilobular emphysema.
ECHO 04/22/2025- Normal LV size with mildly reduced systolic function. LVEF is 45-50% by visual estimation. Mild global hypokinesis. Normal right ventricular size and function. Mild mitral stenosis with mean gradient 6 mmHg, HR 101. Mild aortic
stenosis. Moderate aortic regurgitation. Right heart pressures could not be determined. Compared to prior from October 10, 2024, LV function is now mildly reduced estimated at 45-50%, previously moderately reduced and estimated at 35-40%, and MR
is now mild, previously moderate.
LHC/RHC 10/19/24- LV 117/11 (EDP 13) mmHg - AO 112/52 (mean 76) mmHg - RA 10 mmHg - RV 47/8 (EDP 11) mmHg
PA 46/20 (mean 30) mmHg - PCWP 16 mmHg - SaO2 93.7 % - SvO2 69.0 % - CO/CI 6.0/3.0 L/min/m2
SVR 878 dsc*-5 - PVR 2.3 Wood Units
Spirometry 03/22/24: FEV1 1.17L 52%, FVC 2.23L 75%, ratio 52, post FEV1 1.2L 54%, no BD response (moderate obstruction, stable)��������
PFTs 07/02/22: FEV1 1.25L 54%, FVC 2.09L 68%, ratio 60. Post FEV1 1.32L 57%. No significant bronchodilator response. TLC 4.34L 84%, DLCO 50% (moderate obstruction, normal volumes, moderate diffusion impairment)
Subjective Data
-
Date of Service:
Date of Service: May 03, 2025
Subjective:
Slow improvement.
Review of Systems
Genitourinary: Other (No new symptoms reported today.)
Objective Data
Data Reviewed
Vital Signs / I&O / Oxygen:
Vital Signs
Temp Pulse Resp BP Pulse Ox
97.7 F 79 20 156/66 94
05/03/25 07:30 05/03/25 11:10 05/03/25 11:10 05/03/25 07:30 05/03/25 11:10
Intake and Output
05/02/25 05/03/25 05/04/25
06:59 06:59 06:59
Intake Total 1560 / 1560 180 / 180
Balance 1560 / 1560 180 / 180
SaO2 94
Nasal Cannula flow liters per 3
minute
Physical Exam
General: Comfortable
HEENT: Normocephalic
Cardiovascular: S1-S2
Respiratory: Wheeze (Persistent wheezing compared to yesterday)
GI: Soft and Non Distended
Neurology: Awake and Alert
Skin: Warm
Labs/Micro/Reports
Lab Data
05/03/25 05:53
05/03/25 05:53
[2025-05-03] MEDS: DUONEB INH (13:22)
--- NOTE | 2025-05-03 14:26 | CM ---
Addendum entered by Radha Cardoso RN 05/03/25 15:57:
IMM on chart.
Original Note:
Reviewed the chart notes. CM continues to be available to patient/family and is monitoring medical plan for needs at discharge.
Plan: Discharge to home with resumption of [facility] V[facility].
[facility]
--- NOTE | 2025-05-03 16:08 | PTCARENOTE ---
Patient OOB to chair with assist x1 and walker. RN reviewed fluid restriction and low salt diet with patient. Patient with 4 bottles of gingerale and 4 bottles of water at her bedside. Patient states, 'I need to have my soda. I don't need to drink
the water.'
[2025-05-03] MEDS: LOVENOX 40 MG SC (17:38)
[2025-05-03] MEDS: SINGULAIR 10 MG PO (17:38)
--- NOTE | 2025-05-03 19:19 | W.PN.HOSP.TC ---
Today's Communication/Plan
-
Still significant wheezing and SOB when getting up from bed
Duonebs frequency increased to Q4
Repeat CXR
Assessment / Plan
Assessment / Plan
Physical Exam
General: Not in acute distress
HEENT: Normocephalic, Moist mucous membranes
Respiratory: Wheezes, Rhonchi and Other (oxygen requirements back down to 3 L)
Cardiac: S1/S2 and Regular Rhythm
GI: Soft, Non Tender, Non Distended and Normal Bowel Sounds
Musculoskeletal: No Cyanosis and No Edema
Skin: Warm. Dry.
Neuro: Awake, Alert, AO x 3 and Nonfocal/grossly intact
Psych: Calm
Assessment/Plan
75 y/o female with PMH significant for COPD, chronic hypoxemic respiratory failure on home O2, chronic HFmrEF and CKD who presented to ED complaining of cough and SOB. Patient was recently admitted 04/23 - 04/25 for SOB and weight gain and treated
with IV diuresis as well as increase in her chronic prednisone dosing. Patient notes that she felt improved at discharge. Since recent hospital discharge, she reports development of hacking cough intermittently productive of thick, white mucus.
She notes chest discomfort due to persistent coughing. Increased SOB and on 04/29/25 morning, her SpO2 was in the low 80s and would not increase despite increasing her home O2 from 3lpm to 4 lpm.
#Acute on Chronic Hypoxemic Respiratory Failure
#Acute on chronic respiratory failure likely 2/2 acute COPD exacerbation and Asthma (patient has COPD and Asthma overlap)
#COPD with Acute Exacerbation / Acute Bronchitis
At the time of admission was placed on PO steroids, later switched to IV steroids, today switched back to oral steroids
Appreciate pulmonary evaluation which was requested given patient is coming in with acute COPD recurrence in such a short time period
With high eosinophils and allergy symptoms, concern for Asthma on top of the COPD
Start Montelukast and continue home Loratadine
On discharge, start Flonase
Continue Doxycycline
Continue bronchodilators and ICS --Duonebs increased to Q4H scheduled from Q6H/QID
Continue doxycycline BID given cough / change in mucus production.
Weaned O2 back to baseline (3 lpm)
#Acute on Chronic HFmrEF
-Switched PO Lasix to IV Lasix
-BUN and creatinine are starting to increase, suggesting overdiuresis -->transitioned Lasix to 20 mg PO daily
-Patient had acute CHF very recently, and given recurrence, consulted cardiology, appreciate their evaluation
-Daily weights, I & Os
-Continue metoprolol succinate 25 mg
#Pulmonary Hypertension
-Continue CHF and COPD treatment
-Maintain SpO2>90%
#CKD Stage IIIb
- monitor BMP
#Anxiety / Depression
- continue bupropion and sertraline
#Seasonal allergies
#Chronic allergic rhinitis
DVT Prophylaxis: Lovenox
Code Status: Full Code
Anticipated Discharge: 24 - 48 hours
Subjective/Interval History
-
Date of Service: May 03, 2025
Patient was seen and examined. She reported doing okay, no new complaints, still wheezing and short of breath when getting up out of bed, she is adamant she is not ready to go home yet.
Objective Data
-
Vital Signs:
Vital Signs
Temp Pulse Resp BP Pulse Ox
97.9 F 86 20 125/68 94
05/03/25 15:30 05/03/25 15:30 05/03/25 15:30 05/03/25 15:30 05/03/25 15:30
I&O
05/02/25 05/03/25 05/04/25
06:59 06:59 06:59
Intake Total 1560 / 1560 180 / 180 1310 / 1310
Balance 1560 / 1560 180 / 180 1310 / 1310
[2025-05-03] MEDS: TOPROL XL 25 MG PO (21:24)
[2025-05-03] MEDS: MELATONIN 10 MG PO (21:30)
[2025-05-04] MEDS: DUONEB 3 ML INH ×6 (00:14→19:41)
[2025-05-04 03:25] VITALS: BP 141/64
[2025-05-04 06:00] VITALS: BMI 31.2
[2025-05-04] MEDS: ROBITUSSIN 200 MG PO (06:18)
[2025-05-04 07:00] VITALS: BP 137/59
[2025-05-04] MEDS: PULMICORT 0.5 MG INH ×2 (07:49→19:42)
[2025-05-04 08:15] LABS: % Basophils 0.1 % (0-2); % Eosinophils 0.1 % (0-6); % Lymphocytes 10.3 % (20.5-51.1); % Monocytes 10.1 % (1.7-9.3); % Neutrophils 78.4 % (42.2-75.2); Hematocrit 33.3 % (37.0-47.0); Hemoglobin 9.9 g/dL (12.0-16.0); Mean Corp Hgb Conc. 29.7 g/dL (33.0-37.0); Mean Corpuscular Hgb 26.4 pg (27.0-31.0); Mean Corpuscular Volume 88.8 fL (81.0-99.0); Mean Platelet Volume 9.3 fL (7.4-10.4); Platelet Count 358 10^3/uL (130-400); Red Blood Cell Count 3.75 10^6/uL (4.20-5.40); Red Cell Dist. Width 14.7 % (11.5-14.5); White Blood Cell Count 18.7 10^3/uL (4.8-10.8)
[2025-05-04 08:16] LABS: Absolute Immature Granulocytes 0.2 10^3/uL (0-0.05); Absolute Lymphocytes 1.9 10^3/uL (1.2-3.4); Absolute Monocytes 1.9 10^3/uL (0.1-0.6); Absolute Neutrophils 14.6 10^3/uL (1.4-6.5); Nucleated Red Blood Cells % 0 %
[2025-05-04] MEDS: VIBRAMYCIN 100 MG PO ×2 (08:49→19:44)
[2025-05-04] MEDS: LASIX 20 MG PO (08:49)
[2025-05-04] MEDS: CLARITIN 10 MG PO (08:50)
[2025-05-04] MEDS: ZOLOFT 50 MG PO (08:51)
[2025-05-04] MEDS: LOW STRENGTH ASPIRIN 81 MG PO (08:51)
[2025-05-04] MEDS: WELLBUTRIN XL (24 hour extended release) 150 MG PO (08:51)
[2025-05-04] MEDS: FOLVITE 1 MG PO (08:51)
[2025-05-04] MEDS: VITAMIN B1 100 MG PO (08:51)
[2025-05-04] MEDS: OSCAL 500 + D 1000 MG PO (08:51)
[2025-05-04] MEDS: DELTASONE 60 MG PO (08:52)
[2025-05-04 09:13] LABS: Blood Urea Nitrogen 57 mg/dl (7-17); Calcium 9.3 mg/dl (8.4-10.2); Carbon Dioxide 32 mmol/L (22-30); Chloride 107 mmol/L (98-107); Estimated Creatinine Clearance 31 ml/min; Glucose 86 mg/dl (70-99); Potassium 4.2 mmol/L (3.5-5.1); Sodium 144 mmol/L (135-145); eGFR 31.08
[2025-05-04 11:00] VITALS: BP 141/57
--- NOTE | 2025-05-04 12:32 | W.PN.HOSP.TC ---
Today's Communication/Plan
-
Still wheezing and SOB
Continue steroids, bronchodilators, ICS, antibiotics
Recheck proBNP to see whether could be a component of acute CHF needing more diuresis but patient was noted to have overdiuresis this admission
Assessment / Plan
Assessment / Plan
Physical Exam
General: Not in acute distress
HEENT: Normocephalic, Moist mucous membranes
Respiratory: Wheezes, Rhonchi and Other (oxygen requirements back down to 3 L)
Cardiac: S1/S2 and Regular Rhythm
GI: Soft, Non Tender, Non Distended and Normal Bowel Sounds
Musculoskeletal: No Cyanosis and No Edema
Skin: Warm. Dry.
Neuro: Awake, Alert, AO x 3 and Nonfocal/grossly intact
Psych: Calm
Assessment/Plan
75 y/o female with PMH significant for COPD, chronic hypoxemic respiratory failure on home O2, chronic HFmrEF and CKD who presented to ED complaining of cough and SOB. Patient was recently admitted 04/23 - 04/25 for SOB and weight gain and treated
with IV diuresis as well as increase in her chronic prednisone dosing. Patient notes that she felt improved at discharge. Since recent hospital discharge, she reports development of hacking cough intermittently productive of thick, white mucus.
She notes chest discomfort due to persistent coughing. Increased SOB and on 04/29/25 morning, her SpO2 was in the low 80s and would not increase despite increasing her home O2 from 3lpm to 4 lpm.
#Acute on Chronic Hypoxemic Respiratory Failure
#Acute on chronic respiratory failure likely 2/2 acute COPD exacerbation and Asthma (patient has COPD and Asthma overlap)
#COPD with Acute Exacerbation / Acute Bronchitis
At the time of admission was placed on PO steroids, later switched to IV steroids, today switched back to oral steroids
Appreciate pulmonary evaluation which was requested given patient is coming in with acute COPD recurrence in such a short time period
With high eosinophils and allergy symptoms, concern for Asthma on top of the COPD
Start Montelukast and continue home Loratadine
On discharge, start Flonase
Continue Doxycycline
Continue bronchodilators and ICS --Duonebs increased to Q4H scheduled from Q6H/QID
Continue doxycycline BID given cough / change in mucus production.
Weaned O2 back to baseline (3 lpm) previously
Still wheezing and SOB especially on exertion -- recheck proBNP to see whether could be a component of acute CHF needing more diuresis but patient was noted to have overdiuresis this admission
#Acute on Chronic HFmrEF
-Switched PO Lasix to IV Lasix
-BUN and creatinine are starting to increase, suggesting overdiuresis -->previously transitioned Lasix to 20 mg PO daily
-Patient had acute CHF very recently, and given recurrence, consulted cardiology, appreciate their evaluation
-Daily weights, I & Os
-Continue metoprolol succinate 25 mg
#Pulmonary Hypertension
-Continue CHF and COPD treatment
-Maintain SpO2>90%
#CKD Stage IIIb
- monitor BMP
#Anxiety / Depression
- continue bupropion and sertraline
#Seasonal allergies
#Chronic allergic rhinitis
DVT Prophylaxis: Lovenox
Code Status: Full Code
Anticipated Discharge: 24 - 48 hours
Subjective/Interval History
-
Date of Service: May 04, 2025
Patient was seen and examined. She was still short of breath and wheezing, not ready to go home yet.
Objective Data
-
Labs:
Laboratory Results
05/04/25 05/04/25
07:32 07:33
WBC 18.7 H
Hgb 9.9 L
Hct 33.3 L
Plt Count 358 D
Sodium 144
Potassium 4.2
Chloride 107
Carbon Dioxide 32 H
BUN 57 H
Creatinine 1.7 H
Glucose 86
Calcium 9.3
Vital Signs:
Vital Signs
Temp Pulse Resp BP Pulse Ox
97.8 F 74 16 141/57 98
05/04/25 11:00 05/04/25 11:00 05/04/25 11:00 05/04/25 11:00 05/04/25 11:33
I&O
05/03/25 05/04/25 05/05/25
06:59 06:59 06:59
Intake Total 180 / 180 1790 / 1790
Balance 180 / 180 1790 / 1790
--- NOTE | 2025-05-04 14:00 | W.PN.PUL3 ---
Today's Communication / Plan
-
- CT chest without contrast today
Assessment
-
#1. Acute on chronic hypoxic respiratory failure.
- Appears to be due to exacerbation of obstructive airway disease
- Improving, on 4L O2 no, at baseline, on 3 L. Wean as tolerated.
#2. 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
- Suspect patient has significant component of asthma in addition to COPD. Eosinophil count noted 100-800 at times, also significant allergy symptoms, seasonal variation and frequent symptoms of allergic rhinitis with post nasal discharge
- In view of persistent wheezing, change DuoNeb to every 4 hours scheduled, continue budesonide to 0.5 mg BID, prednisone switched to p.o. 60 mg daily
- Continue nightly Montelukast and Loratadine. Continue Doxycycline.
- Start Flonase at discharge
- Considering frequent exacerbations, eosinophilia and chronic steroid dependence, patient will likely benefit from initiation of Biologics, e.g., Dupilumab. Will pursue this as out patient.
- In view of persistent symptoms despite every 4 DuoNeb, budesonide and steroids. Will proceed with CT chest without contrast to evaluate for any occult infection versus pulmonary edema.
#3. Chronic heart failure, with reduced ejection fraction, LVEF 40 to 50%.
- Continue lasix. CT chest for better parenchymal evaluation
#4. Pulmonary hypertension, mild.
- Primarily group II with underlying CHF, might have a component of group III with underlying emphysema. Right heart cath showed mean pulmonary artery pressure around 30 in 2023 with the pulmonary capillary wedge pressure 16.
-Continue supplemental O2, considering patient has pulmonary hypertension, target oxygen saturation more than 90%.
Other medical diagnoses:
- Seasonal allergies
- Chronic allergic rhinitis
Total time spent on this consultation/encounter _45___ minutes which includes review of history, physical exam, medications, laboratory data, personal review of imaging, extensive review of outpatient records, discussion with care team and
respiratory therapy.
Data:
CXR 04/2025: Mild pulmonary edema, progressed.
CT chest 11/08/24- 1. Unchanged 6 to 7 mm nodule within the right upper lobe and unchanged 3 to 4 mm nodule within the left upper lobe. There is a new 4 mm groundglass nodule within the right middle lobe, possibly infectious or inflammatory in
nature given appearance. Small amount of irregular airspace consolidation within the posterior left lower lobe, presumably atelectasis with pneumonia unable to be excluded in the appropriate clinical setting. Mild centrilobular emphysema.
ECHO 04/22/2025- Normal LV size with mildly reduced systolic function. LVEF is 45-50% by visual estimation. Mild global hypokinesis. Normal right ventricular size and function. Mild mitral stenosis with mean gradient 6 mmHg, HR 101. Mild aortic
stenosis. Moderate aortic regurgitation. Right heart pressures could not be determined. Compared to prior from October 10, 2024, LV function is now mildly reduced estimated at 45-50%, previously moderately reduced and estimated at 35-40%, and MR
is now mild, previously moderate.
LHC/RHC 10/19/24- LV 117/11 (EDP 13) mmHg - AO 112/52 (mean 76) mmHg - RA 10 mmHg - RV 47/8 (EDP 11) mmHg
PA 46/20 (mean 30) mmHg - PCWP 16 mmHg - SaO2 93.7 % - SvO2 69.0 % - CO/CI 6.0/3.0 L/min/m2
SVR 878 dsc*-5 - PVR 2.3 Wood Units
Spirometry 03/22/24: FEV1 1.17L 52%, FVC 2.23L 75%, ratio 52, post FEV1 1.2L 54%, no BD response (moderate obstruction, stable)��������
PFTs 07/02/22: FEV1 1.25L 54%, FVC 2.09L 68%, ratio 60. Post FEV1 1.32L 57%. No significant bronchodilator response. TLC 4.34L 84%, DLCO 50% (moderate obstruction, normal volumes, moderate diffusion impairment)
Subjective Data
-
Date of Service:
Date of Service: May 04, 2025
Subjective:
Patient lying in bed, continues to have cough and wheezing.
Review of Systems
Genitourinary: Other (All 14 systems reviewed and negative except as stated above in the history of present illness.)
Objective Data
Data Reviewed
Vital Signs / I&O / Oxygen:
Vital Signs
Temp Pulse Resp BP Pulse Ox
97.8 F 74 16 141/57 98
05/04/25 11:00 05/04/25 11:00 05/04/25 11:00 05/04/25 11:00 05/04/25 11:33
Intake and Output
05/03/25 05/04/25 05/05/25
06:59 06:59 06:59
Intake Total 180 / 180 1790 / 1790
Balance 180 / 180 1790 / 1790
SaO2 98
Nasal Cannula flow liters per 3
minute
Physical Exam
General: Comfortable
HEENT: Normocephalic
Cardiovascular: S1-S2
Respiratory: Wheeze (Persistent wheezing compared to yesterday)
GI: Soft and Non Distended
Neurology: Awake and Alert
Skin: Warm
Labs/Micro/Reports
Lab Data
05/04/25 07:33
05/04/25 07:32
[2025-05-04 15:00] VITALS: BP 126/61
[2025-05-04] MEDS: SINGULAIR 10 MG PO (17:59)
[2025-05-04] MEDS: LOVENOX SC (17:59)
--- NOTE | 2025-05-04 18:23 | PTCARENOTE ---
Pt refusing lovenox shot until she is in the bed, pt refusing to get up from chair at this time. Oncoming RN made aware.
[2025-05-04] MEDS: LOVENOX 40 MG SC (19:44)
[2025-05-04 19:54] VITALS: BP 125/66
[2025-05-04] MEDS: TOPROL XL 25 MG PO (22:09)
[2025-05-04] MEDS: FLEXERIL 5 MG PO (22:20)
[2025-05-04] MEDS: MELATONIN 10 MG PO (22:20)
[2025-05-05] VITALS (7 sets, daily range): BP systolic 88–156; BP diastolic 54–70; PULSE 77; O2SAT 95; BMI 31.4
[2025-05-05] MEDS: DUONEB INH (03:37)
[2025-05-05] MEDS: DUONEB 3 ML INH ×5 (04:20→18:13)
[2025-05-05 07:53] LABS: Hemoglobin 9.6 g/dL (12.0-16.0); Mean Corpuscular Hgb 26.9 pg (27.0-31.0); Mean Corpuscular Volume 89.6 fL (81.0-99.0); Mean Platelet Volume 9.7 fL (7.4-10.4); Platelet Count 375 10^3/uL (130-400); Red Blood Cell Count 3.57 10^6/uL (4.20-5.40); Red Cell Dist. Width 14.7 % (11.5-14.5); White Blood Cell Count 17.7 10^3/uL (4.8-10.8)
[2025-05-05 08:11] LABS: NT-proBNP 1100 pg/ml
[2025-05-05 08:21] LABS: Blood Urea Nitrogen 57 mg/dl (7-17); Calcium 9.2 mg/dl (8.4-10.2); Carbon Dioxide 31 mmol/L (22-30); Chloride 109 mmol/L (98-107); Estimated Creatinine Clearance 38 ml/min; Glucose 83 mg/dl (70-99); Potassium 4.3 mmol/L (3.5-5.1); Sodium 143 mmol/L (135-145); eGFR 39.23
[2025-05-05] MEDS: PULMICORT 0.5 MG INH ×2 (08:21→18:14)
[2025-05-05] MEDS: OSCAL 500 + D 1000 MG PO (08:24)
[2025-05-05] MEDS: VIBRAMYCIN 100 MG PO (08:24)
[2025-05-05] MEDS: WELLBUTRIN XL (24 hour extended release) 150 MG PO (08:24)
[2025-05-05] MEDS: ZOLOFT 50 MG PO (08:25)
[2025-05-05] MEDS: FOLVITE 1 MG PO (08:25)
[2025-05-05] MEDS: CLARITIN 10 MG PO (08:25)
[2025-05-05] MEDS: DELTASONE 60 MG PO (08:25)
[2025-05-05] MEDS: LASIX 20 MG PO (08:25)
[2025-05-05] MEDS: LOW STRENGTH ASPIRIN 81 MG PO (08:25)
[2025-05-05] MEDS: VITAMIN B1 100 MG PO (08:25)
--- NOTE | 2025-05-05 14:47 | W.PN.HOSP.TC ---
Addendum entered and electronically signed by Sunny Solorio MD 05/05/25 15:20:
Stop Doxcycline.
Discussed today with pulmonary, plan is for SNF discharge either on 05/06/25 or 05/07/25.
Original Note:
Today's Communication/Plan
-
Patient still very symptomatic
See plan
Assessment / Plan
Assessment / Plan
Physical Exam
General: Not in acute distress
HEENT: Normocephalic, Moist mucous membranes
Respiratory: Wheezes, Rhonchi and Other (oxygen requirements back down to 3 L)
Cardiac: S1/S2 and Regular Rhythm
GI: Soft, Non Tender, Non Distended and Normal Bowel Sounds
Musculoskeletal: No Cyanosis and No Edema
Skin: Warm. Dry.
Neuro: Awake, Alert, AO x 3 and Nonfocal/grossly intact
Psych: Calm
Assessment/Plan
75 y/o female with PMH significant for COPD, chronic hypoxemic respiratory failure on home O2, chronic HFmrEF and CKD who presented to ED complaining of cough and SOB. Patient was recently admitted 04/23 - 04/25 for SOB and weight gain and treated
with IV diuresis as well as increase in her chronic prednisone dosing. Patient notes that she felt improved at discharge. Since recent hospital discharge, she reports development of hacking cough intermittently productive of thick, white mucus.
She notes chest discomfort due to persistent coughing. Increased SOB and on 04/29/25 morning, her SpO2 was in the low 80s and would not increase despite increasing her home O2 from 3lpm to 4 lpm.
#Acute on Chronic Hypoxemic Respiratory Failure
#Acute on chronic respiratory failure likely 2/2 acute COPD exacerbation and Asthma (patient has COPD and Asthma overlap)
#COPD with Acute Exacerbation / Acute Bronchitis
At the time of admission was placed on PO steroids, later switched to IV steroids, today switched back to oral steroids
Appreciate pulmonary evaluation which was requested given patient is coming in with acute COPD recurrence in such a short time period
With high eosinophils and allergy symptoms, concern for Asthma on top of the COPD
Start Montelukast and continue home Loratadine
On discharge, start Flonase
Continue Doxycycline
Continue bronchodilators and ICS --Duonebs increased to Q4H scheduled from Q6H/QID
Continue doxycycline BID given cough / change in mucus production.
Weaned O2 back to baseline (3 lpm) previously
Since patient had persistent symptoms despite every 4 DuoNeb, budesonide and steroids: CT chest without contrast was ordered -- no mention of pneumonia or pulmonary edema
Patient says she feels better today, but still significantly wheezing and shortness of breath on exertion -- she requested to stay and do more physical therapy
#Acute on Chronic HFmrEF
-Switched PO Lasix to IV Lasix
-BUN and creatinine are starting to increase, suggesting overdiuresis -->previously transitioned Lasix to 20 mg PO daily
-Patient had acute CHF very recently, and given recurrence, consulted cardiology, appreciate their evaluation
-Daily weights, I & Os
-Continue metoprolol succinate 25 mg
#Mild calcific atherosclerotic plaque in the coronary arteries on CT Chest imaging
#Pulmonary Hypertension
-Continue CHF and COPD treatment
-Maintain SpO2>90%
#CKD Stage IIIb
- monitor BMP
#Severe scarring in the left kidney on CT Chest
#Several Thoracic Spine Compression Fractures on CT Chest
#Anxiety / Depression
- continue bupropion and sertraline
#Seasonal allergies
#Chronic allergic rhinitis
DVT Prophylaxis: Lovenox
Code Status: Full Code
Anticipated Discharge: 24 - 48 hours
Subjective/Interval History
-
Date of Service: May 05, 2025
Patient was seen and examined. She reported that although she feels a little better, she still has significant SOB and wheezing, and does not want to go home yet because she is still very symptomatic.
Objective Data
-
Labs:
Laboratory Results
05/05/25
07:24
WBC 17.7 H
Hgb 9.6 L
Hct 32.0 L
Plt Count 375
Sodium 143
Potassium 4.3
Chloride 109 H
Carbon Dioxide 31 H
BUN 57 H
Creatinine 1.4 H
Glucose 83
Calcium 9.2
Vital Signs:
Vital Signs
Temp Pulse Resp BP Pulse Ox
97.7 F 71 16 135/59 96
05/05/25 11:00 05/05/25 11:21 05/05/25 11:21 05/05/25 11:00 05/05/25 11:21
I&O
05/04/25 05/05/25 05/06/25
06:59 06:59 06:59
Intake Total 1790 / 1790 790 / 790
Balance 1790 / 1790 790 / 790
--- NOTE | 2025-05-05 15:16 | W.PN.PUL3 ---
Today's Communication / Plan
-
- D/c Doxycycline.
- Discharge planning.
- PT/OT, likely will need SNF
Assessment
-
#1. Acute on chronic hypoxic respiratory failure.
- Appears to be due to exacerbation of obstructive airway disease
- Improving, on 4L O2 no, at baseline, on 3 L. Wean as tolerated.
#2. 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
- Suspect patient has significant component of asthma in addition to COPD. Eosinophil count noted 100-800 at times, also significant allergy symptoms, seasonal variation and frequent symptoms of allergic rhinitis with post nasal discharge
- Clinically improving, continue DuoNeb every 4 hours scheduled, continue budesonide to 0.5 mg BID, prednisone switched to p.o. 60 mg daily
- Continue nightly Montelukast and Loratadine. D/c Doxycycline.
- Start Flonase at discharge
- Considering frequent exacerbations, eosinophilia and chronic steroid dependence, patient will likely benefit from initiation of Biologics, e.g., Dupilumab. Will pursue this as out patient.
- Chest CT reviewed, without any infiltrates to suggest occult pneumonia.
#3. Chronic heart failure, with reduced ejection fraction, LVEF 40 to 50%.
- Continue lasix. CT chest for better parenchymal evaluation
#4. Pulmonary hypertension, mild.
- Primarily group II with underlying CHF, might have a component of group III with underlying emphysema. Right heart cath showed mean pulmonary artery pressure around 30 in 2023 with the pulmonary capillary wedge pressure 16.
-Continue supplemental O2, considering patient has pulmonary hypertension, target oxygen saturation more than 90%.
Other medical diagnoses:
- Seasonal allergies
- Chronic allergic rhinitis
Total time spent on this consultation/encounter _45___ minutes which includes review of history, physical exam, medications, laboratory data, personal review of imaging, extensive review of outpatient records, discussion with care team and
respiratory therapy.
Data:
CXR 04/2025: Mild pulmonary edema, progressed.
CT chest 11/08/24- 1. Unchanged 6 to 7 mm nodule within the right upper lobe and unchanged 3 to 4 mm nodule within the left upper lobe. There is a new 4 mm groundglass nodule within the right middle lobe, possibly infectious or inflammatory in
nature given appearance. Small amount of irregular airspace consolidation within the posterior left lower lobe, presumably atelectasis with pneumonia unable to be excluded in the appropriate clinical setting. Mild centrilobular emphysema.
ECHO 04/22/2025- Normal LV size with mildly reduced systolic function. LVEF is 45-50% by visual estimation. Mild global hypokinesis. Normal right ventricular size and function. Mild mitral stenosis with mean gradient 6 mmHg, HR 101. Mild aortic
stenosis. Moderate aortic regurgitation. Right heart pressures could not be determined. Compared to prior from October 10, 2024, LV function is now mildly reduced estimated at 45-50%, previously moderately reduced and estimated at 35-40%, and MR
is now mild, previously moderate.
LHC/RHC 10/19/24- LV 117/11 (EDP 13) mmHg - AO 112/52 (mean 76) mmHg - RA 10 mmHg - RV 47/8 (EDP 11) mmHg
PA 46/20 (mean 30) mmHg - PCWP 16 mmHg - SaO2 93.7 % - SvO2 69.0 % - CO/CI 6.0/3.0 L/min/m2
SVR 878 dsc*-5 - PVR 2.3 Wood Units
Spirometry 03/22/24: FEV1 1.17L 52%, FVC 2.23L 75%, ratio 52, post FEV1 1.2L 54%, no BD response (moderate obstruction, stable)��������
PFTs 07/02/22: FEV1 1.25L 54%, FVC 2.09L 68%, ratio 60. Post FEV1 1.32L 57%. No significant bronchodilator response. TLC 4.34L 84%, DLCO 50% (moderate obstruction, normal volumes, moderate diffusion impairment)
Subjective Data
-
Date of Service:
Date of Service: May 05, 2025
Subjective:
Gradually improving. Slept better overnight.
Review of Systems
Genitourinary: Other (All 14 systems reviewed and negative except as stated above in the history of present illness.)
Objective Data
Data Reviewed
Vital Signs / I&O / Oxygen:
Vital Signs
Temp Pulse Resp BP Pulse Ox
97.7 F 76 18 135/59 97
05/05/25 11:00 05/05/25 15:07 05/05/25 15:07 05/05/25 11:00 05/05/25 15:07
Intake and Output
05/04/25 05/05/25 05/06/25
06:59 06:59 06:59
Intake Total 1790 / 1790 790 / 790
Balance 1790 / 1790 790 / 790
SaO2 97
Nasal Cannula flow liters per 3
minute
Physical Exam
General: Comfortable
HEENT: Normocephalic
Cardiovascular: S1-S2
Respiratory: Wheeze (Min end expiratory wheezing on exam)
GI: Soft and Non Distended
Neurology: Awake and Alert
Skin: Warm
Labs/Micro/Reports
Lab Data
05/05/25 07:24
05/05/25 07:24
[2025-05-05] MEDS: SINGULAIR 10 MG PO (17:14)
[2025-05-05] MEDS: LOVENOX 40 MG SC (17:15)
[2025-05-05] MEDS: TOPROL XL PO (20:25)
[2025-05-06] MEDS: MELATONIN 10 MG PO ×2 (00:06→21:24)
[2025-05-06] MEDS: ROBITUSSIN 200 MG PO ×2 (00:37→21:24)
[2025-05-06] MEDS: DUONEB 3 ML INH ×7 (00:47→23:34)
[2025-05-06 03:11] VITALS: BP 129/56
[2025-05-06 05:40] VITALS: BMI 31.4
[2025-05-06 07:14] LABS: Hematocrit 31.4 % (37.0-47.0); Hemoglobin 9.6 g/dL (12.0-16.0); Mean Corp Hgb Conc. 30.6 g/dL (33.0-37.0); Mean Corpuscular Hgb 26.9 pg (27.0-31.0); Mean Platelet Volume 9.8 fL (7.4-10.4); Platelet Count 336 10^3/uL (130-400); Red Blood Cell Count 3.57 10^6/uL (4.20-5.40); White Blood Cell Count 19.6 10^3/uL (4.8-10.8)
[2025-05-06 07:40] VITALS: BP 125/52
[2025-05-06 07:45] LABS: Blood Urea Nitrogen 51 mg/dl (7-17); Calcium 8.7 mg/dl (8.4-10.2); Carbon Dioxide 31 mmol/L (22-30); Chloride 108 mmol/L (98-107); Estimated Creatinine Clearance 35 ml/min; Glucose 118 mg/dl (70-99); Sodium 144 mmol/L (135-145); eGFR 36.12
[2025-05-06] MEDS: PULMICORT 0.5 MG INH ×2 (07:51→19:23)
[2025-05-06] MEDS: DELTASONE 60 MG PO (08:53)
[2025-05-06] MEDS: LASIX 20 MG PO (08:53)
[2025-05-06] MEDS: LOW STRENGTH ASPIRIN 81 MG PO (08:55)
[2025-05-06] MEDS: VITAMIN B1 100 MG PO (08:55)
[2025-05-06] MEDS: OSCAL 500 + D 1000 MG PO (08:55)
[2025-05-06] MEDS: ZOLOFT 50 MG PO (08:55)
[2025-05-06] MEDS: WELLBUTRIN XL (24 hour extended release) 150 MG PO (08:55)
[2025-05-06] MEDS: FOLVITE 1 MG PO (08:55)
[2025-05-06] MEDS: CLARITIN 10 MG PO (08:55)
--- NOTE | 2025-05-06 09:45 | W.PN.HOSP.TC ---
Today's Communication/Plan
-
See plan
Assessment / Plan
Assessment / Plan
75 y/o female with PMH significant for COPD, chronic hypoxemic respiratory failure on home O2, chronic HFmrEF and CKD who presented to ED complaining of cough and SOB. Patient was recently admitted 04/23 - 04/25 for SOB and weight gain and treated
with IV diuresis as well as increase in her chronic prednisone dosing. Patient notes that she felt improved at discharge. Since recent hospital discharge, she reports development of hacking cough intermittently productive of thick, white mucus.
She notes chest discomfort due to persistent coughing. Increased SOB and on 04/29/25 morning, her SpO2 was in the low 80s and would not increase despite increasing her home O2 from 3L to 4L.
Gen: NAD, AAOx3, appears chronically ill.
Eyes: EOMI, PERRLA, no scleral icterus.
Neck: supple.
CV: RRR, +S1/S2, no m/r/g.
Resp: B/L mild wheezes rhonchi.
Abd: +BS, soft, NT, ND
Skin: Intact
Neuro: CN 2-12 intact, non-focal.
Psych: Normal mood and affect.
Echo 04/22/25:
TDS: Recommend Definity for future studies.
Normal LV size with mildly reduced systolic function.
LVEF is 45-50% by visual estimation. Mild global hypokinesis.
Normal right ventricular size and function.
Mild mitral stenosis with mean gradient 6 mmHg, HR 101.
Mild aortic stenosis.
Moderate aortic regurgitation.
Right heart pressures could not be determined.
Compared to prior from October 10, 2024, LV function is now mildly reduced
estimated at 45-50%, previously moderately reduced and estimated at 35-40%, and
MR is now mild, previously moderate.
CT chest:
1. Mild bilateral upper lobe emphysema.
2. Moderately decreased bilateral lung volumes secondary to a moderately exaggerated thoracic kyphosis.
3. Mild calcific atherosclerotic plaque in the coronary arteries.
4. MULTILEVEL SEVERE OSTEOPOROTIC INSUFFICIENCY FRACTURES in the thoracic spine with complete collapse of T6 and T8 and moderate loss of height at T9 and T11.
5. Severe scarring in the left kidney.
Acute on Chronic Hypoxemic Respiratory Failure:
-baseline 3L NC O2
-due to acute COPD exacerbation and Asthma (patient has COPD and Asthma overlap)
-at the time of admission the pt was placed on PO steroids, later switched to IV steroids, switched back to PO steroids on 05/05/25
-pulm following, discussed with pulmonary
-with high eosinophils and allergy symptoms, likely acute asthma exac in addition to acute COPD exac
-cont Singulair/Claritin
-cont Duonebs
-completed a course of Doxy
-leukocytosis is likely steroid-induced
Acute on Chronic HFmrEF:
-s/p IV Lasix, transitioned to PO Lasix
-cards saw in c/s
-cont BB
Other problems:
Pulmonary Hypertension
CKD3b
Anxiety/Depression: continue bupropion and sertraline
Seasonal allergies
Chronic allergic rhinitis
FULL/Lovenox
Total time spent on today's encounter was 50 minutes which included time spent in counseling the patient/family regarding diagnosis and treatment plan as listed above, goals of care, and symptom management. Case was discussed with nursing staff,
specialists, and care coordinators/case management. All labs and imaging personally reviewed by me. Remainder the time spent in detailed review of previous records, lab data, imaging, and other medical provider documentation.
Anticipated Discharge: Within 24 hours
Subjective/Interval History
-
Date of Service: May 06, 2025
Reports shortness of breath is improving but 'not there yet.'
Objective Data
-
Labs:
Laboratory Results
05/06/25
06:20
WBC 19.6 H
Hgb 9.6 L
Hct 31.4 L
Plt Count 336
Sodium 144
Potassium 4.0
Chloride 108 H
Carbon Dioxide 31 H
BUN 51 H
Creatinine 1.5 H
Glucose 118 H
Calcium 8.7
Vital Signs:
Vital Signs
Temp Pulse Resp BP Pulse Ox
97.3 F 68 18 125/52 98
05/06/25 07:40 05/06/25 08:53 05/06/25 07:40 05/06/25 08:53 05/06/25 09:00
I&O
05/05/25 05/06/25 05/07/25
06:59 06:59 06:59
Intake Total 790 / 790 1500 / 1500
Balance 790 / 790 1500 / 1500
[2025-05-06 11:42] VITALS: BP 123/55
--- NOTE | 2025-05-06 13:40 | W.PN.PUL3 ---
Today's Communication / Plan
-
- Discharge planning, anticipate discharge home with home health on 05/07
- At discharge, start Breztri, 2 puffs twice a day inhaled
- Continue albuterol MDI, 2 puffs every 4 hours as needed shortness of breath, also continue DuoNeb nebulized 4-6 times on an as-needed basis
- Initiate montelukast 10 mg nightly
- Slow and prolonged prednisone taper, 50 mg for 4 days then 40 mg for 4 days, then 30 mg for 4 days then 20 mg for 4 days, then patient will continue 10 mg daily until seen in the pulmonary clinic
- Will pursue possible initiation of dupilumab as outpatient
- Will arrange outpatient pulmonary follow-up
- Pulmonary team will sign off, call as needed
Assessment
-
#1. Acute on chronic hypoxic respiratory failure.
- Appears to be due to exacerbation of obstructive airway disease
- Improving, on 4L O2 no, at baseline, on 3 L. Wean as tolerated.
#2. 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
- Suspect patient has significant component of asthma in addition to COPD. Eosinophil count noted 100-800 at times, also significant allergy symptoms, seasonal variation and frequent symptoms of allergic rhinitis with post nasal discharge
- Clinically improving, continue DuoNeb every 4 hours scheduled, continue budesonide to 0.5 mg BID, prednisone switched to p.o. 60 mg daily
- Continue nightly Montelukast and Loratadine. D/c Doxycycline.
- Start Flonase at discharge
- Considering frequent exacerbations, eosinophilia and chronic steroid dependence, patient will likely benefit from initiation of Biologics, e.g., Dupilumab. Will pursue this as out patient.
- Chest CT reviewed, without any infiltrates to suggest occult pneumonia.
#3. Chronic heart failure, with reduced ejection fraction, LVEF 40 to 50%.
- Continue lasix. CT chest for better parenchymal evaluation
#4. Pulmonary hypertension, mild.
- Primarily group II with underlying CHF, might have a component of group III with underlying emphysema. Right heart cath showed mean pulmonary artery pressure around 30 in 2023 with the pulmonary capillary wedge pressure 16.
-Continue supplemental O2, considering patient has pulmonary hypertension, target oxygen saturation more than 90%.
Other medical diagnoses:
- Seasonal allergies
- Chronic allergic rhinitis
Total time spent on this consultation/encounter _45___ minutes which includes review of history, physical exam, medications, laboratory data, personal review of imaging, extensive review of outpatient records, discussion with care team and
respiratory therapy.
Data:
CXR 04/2025: Mild pulmonary edema, progressed.
CT chest 11/08/24- 1. Unchanged 6 to 7 mm nodule within the right upper lobe and unchanged 3 to 4 mm nodule within the left upper lobe. There is a new 4 mm groundglass nodule within the right middle lobe, possibly infectious or inflammatory in
nature given appearance. Small amount of irregular airspace consolidation within the posterior left lower lobe, presumably atelectasis with pneumonia unable to be excluded in the appropriate clinical setting. Mild centrilobular emphysema.
ECHO 04/22/2025- Normal LV size with mildly reduced systolic function. LVEF is 45-50% by visual estimation. Mild global hypokinesis. Normal right ventricular size and function. Mild mitral stenosis with mean gradient 6 mmHg, HR 101. Mild aortic
stenosis. Moderate aortic regurgitation. Right heart pressures could not be determined. Compared to prior from October 10, 2024, LV function is now mildly reduced estimated at 45-50%, previously moderately reduced and estimated at 35-40%, and MR
is now mild, previously moderate.
LHC/RHC 10/19/24- LV 117/11 (EDP 13) mmHg - AO 112/52 (mean 76) mmHg - RA 10 mmHg - RV 47/8 (EDP 11) mmHg
PA 46/20 (mean 30) mmHg - PCWP 16 mmHg - SaO2 93.7 % - SvO2 69.0 % - CO/CI 6.0/3.0 L/min/m2
SVR 878 dsc*-5 - PVR 2.3 Wood Units
Spirometry 03/22/24: FEV1 1.17L 52%, FVC 2.23L 75%, ratio 52, post FEV1 1.2L 54%, no BD response (moderate obstruction, stable)��������
PFTs 07/02/22: FEV1 1.25L 54%, FVC 2.09L 68%, ratio 60. Post FEV1 1.32L 57%. No significant bronchodilator response. TLC 4.34L 84%, DLCO 50% (moderate obstruction, normal volumes, moderate diffusion impairment)
Subjective Data
-
Date of Service:
Date of Service: May 06, 2025
Objective Data
Data Reviewed
Vital Signs / I&O / Oxygen:
Vital Signs
Temp Pulse Resp BP Pulse Ox
97.9 F 83 16 123/55 97
05/06/25 11:42 05/06/25 11:45 05/06/25 11:45 05/06/25 11:42 05/06/25 11:45
Intake and Output
05/05/25 05/06/25 05/07/25
06:59 06:59 06:59
Intake Total 790 / 790 1500 / 1500
Balance 790 / 790 1500 / 1500
SaO2 97
Nasal Cannula flow liters per 2
minute
Physical Exam
General: Comfortable
HEENT: Normocephalic
Cardiovascular: S1-S2
Respiratory: Wheeze (Min end expiratory wheezing on exam)
GI: Soft and Non Distended
Neurology: Awake and Alert
Skin: Warm
Labs/Micro/Reports
Lab Data
05/06/25 06:20
05/06/25 06:20
[2025-05-06 15:40] VITALS: BP 126/59
--- NOTE | 2025-05-06 16:17 | CM ---
Reviewed the chart notes and spoke with the patient at the bedside. IMM reviewed. The patient anticipates being discharged to home possibly tomorrow. CM continues to be available to patient/family and is monitoring medical plan for needs at
discharge.
Plan: Discharge to home with resumption of [facility].
[facility]
[2025-05-06] MEDS: LOVENOX 40 MG SC (17:21)
[2025-05-06] MEDS: SINGULAIR 10 MG PO (17:21)
[2025-05-06 19:35] VITALS: BP 117/68
[2025-05-06] MEDS: TOPROL XL 25 MG PO (21:25)
[2025-05-06 23:46] VITALS: BP 134/67
[2025-05-07 03:18] VITALS: BP 131/59
[2025-05-07] MEDS: DUONEB INH ×2 (04:15→11:19)
[2025-05-07 06:00] VITALS: BMI 31.3
[2025-05-07 07:00] VITALS: BP 132/61
[2025-05-07 07:05] LABS: Hematocrit 30.8 % (37.0-47.0); Hemoglobin 9.5 g/dL (12.0-16.0); Mean Corp Hgb Conc. 30.8 g/dL (33.0-37.0); Mean Corpuscular Hgb 27.1 pg (27.0-31.0); Mean Corpuscular Volume 87.7 fL (81.0-99.0); Mean Platelet Volume 9.8 fL (7.4-10.4); Platelet Count 333 10^3/uL (130-400); Red Blood Cell Count 3.51 10^6/uL (4.20-5.40); Red Cell Dist. Width 15.2 % (11.5-14.5); White Blood Cell Count 17.9 10^3/uL (4.8-10.8)
[2025-05-07] MEDS: DUONEB 3 ML INH (07:43)
[2025-05-07] MEDS: PULMICORT 0.5 MG INH (07:43)
[2025-05-07 07:59] LABS: Blood Urea Nitrogen 51 mg/dl (7-17); Calcium 8.8 mg/dl (8.4-10.2); Carbon Dioxide 32 mmol/L (22-30); Chloride 105 mmol/L (98-107); Estimated Creatinine Clearance 40 ml/min; Glucose 102 mg/dl (70-99); Potassium 4.3 mmol/L (3.5-5.1); Sodium 139 mmol/L (135-145); eGFR 42.88
[2025-05-07] MEDS: ZOLOFT 50 MG PO (08:40)
[2025-05-07] MEDS: DELTASONE 60 MG PO (08:40)
[2025-05-07] MEDS: OSCAL 500 + D 1000 MG PO (08:40)
[2025-05-07] MEDS: CLARITIN 10 MG PO (08:40)
[2025-05-07] MEDS: WELLBUTRIN XL (24 hour extended release) 150 MG PO (08:40)
[2025-05-07] MEDS: VITAMIN B1 100 MG PO (08:40)
[2025-05-07] MEDS: LOW STRENGTH ASPIRIN 81 MG PO (08:40)
[2025-05-07] MEDS: LASIX 20 MG PO (08:40)
[2025-05-07] MEDS: FOLVITE 1 MG PO (08:40)
--- NOTE | 2025-05-07 08:49 | W.PN.HOSP.TC ---
Today's Communication/Plan
-
d/c
Assessment / Plan
Assessment / Plan
75 y/o female with PMH significant for COPD, chronic hypoxemic respiratory failure on home O2, chronic HFmrEF and CKD who presented to ED complaining of cough and SOB. Patient was recently admitted 04/23 - 04/25 for SOB and weight gain and treated
with IV diuresis as well as increase in her chronic prednisone dosing. Patient notes that she felt improved at discharge. Since recent hospital discharge, she reports development of hacking cough intermittently productive of thick, white mucus.
She notes chest discomfort due to persistent coughing. Increased SOB and on 04/29/25 morning, her SpO2 was in the low 80s and would not increase despite increasing her home O2 from 3L to 4L.
Gen: remains NAD, AAOx3, appears chronically ill.
Eyes: EOMI, PERRLA, no scleral icterus.
Neck: supple.
CV: remains RRR, +S1/S2, no m/r/g.
Resp: B/L mild wheezes, [place] faint rhonchi.
Abd: +BS, soft, NT, ND
Skin: Intact
Neuro: CN 2-12 intact, non-focal.
Psych: Normal mood and affect.
Echo 04/22/25:
TDS: Recommend Definity for future studies.
Normal LV size with mildly reduced systolic function.
LVEF is 45-50% by visual estimation. Mild global hypokinesis.
Normal right ventricular size and function.
Mild mitral stenosis with mean gradient 6 mmHg, HR 101.
Mild aortic stenosis.
Moderate aortic regurgitation.
Right heart pressures could not be determined.
Compared to prior from October 10, 2024, LV function is now mildly reduced
estimated at 45-50%, previously moderately reduced and estimated at 35-40%, and
MR is now mild, previously moderate.
CT chest:
1. Mild bilateral upper lobe emphysema.
2. Moderately decreased bilateral lung volumes secondary to a moderately exaggerated thoracic kyphosis.
3. Mild calcific atherosclerotic plaque in the coronary arteries.
4. MULTILEVEL SEVERE OSTEOPOROTIC INSUFFICIENCY FRACTURES in the thoracic spine with complete collapse of T6 and T8 and moderate loss of height at T9 and T11.
5. Severe scarring in the left kidney.
Acute on Chronic Hypoxemic Respiratory Failure:
-baseline 3L NC O2
-due to acute COPD exacerbation and Asthma (patient has COPD and Asthma overlap)
-at the time of admission the pt was placed on PO steroids, later switched to IV steroids, switched back to PO steroids on 05/05/25
-with high eosinophils and allergy symptoms, likely acute asthma exac in addition to acute COPD exac
-cont Singulair/Claritin
-cont Duonebs
-completed a course of Doxy
-leukocytosis is likely steroid-induced
-pulm following, discussed with pulmonary. D/c on Prednisone taper, Albuterol MDI PRN, duonebs PRN. For Dupilumab in a few weeks outpt.
Acute on Chronic HFmrEF:
-s/p IV Lasix, transitioned to PO Lasix
-cards saw in c/s
-cont BB
Other problems:
Pulmonary Hypertension
CKD3b
Anxiety/Depression: continue bupropion and sertraline
Seasonal allergies
Chronic allergic rhinitis
FULL/Lovenox
Total time spent on d/c = 36 min. This included today's physical exam, progress note, review of laboratory and diagnostic data, preparation of discharge documents and prescriptions, and discussions about the pt's hospital course and discharge plan
with the patient and other medical records coordinator involved in the patient's care.
Anticipated Discharge: Today
Subjective/Interval History
-
Date of Service: May 07, 2025
'I feel much better. Slept like a rock.'
Objective Data
-
Labs:
Laboratory Results
05/07/25
06:12
WBC 17.9 H
Hgb 9.5 L
Hct 30.8 L
Plt Count 333
Sodium 139
Potassium 4.3
Chloride 105
Carbon Dioxide 32 H
BUN 51 H
Creatinine 1.3 H
Glucose 102 H
Calcium 8.8
Vital Signs:
Vital Signs
Temp Pulse Resp BP Pulse Ox
97.8 F 74 19 132/61 96
05/07/25 07:00 05/07/25 08:40 05/07/25 07:49 05/07/25 08:40 05/07/25 07:49
I&O
05/06/25 05/07/25 05/08/25
06:59 06:59 06:59
Intake Total 1500 / 1500 1440 / 1440
Balance 1500 / 1500 1440 / 1440
--- NOTE | 2025-05-07 09:22 | CM ---
Reviewed the chart notes. Patient for potential discharge today to home. CM continues to be available to patient/family and is monitoring medical plan for needs at discharge.
Plan: Discharge to home with resumption of [facility].
[facility]
--- NOTE | 2025-05-07 09:56 | PTCARENOTE ---
pt aaox3. states no pain and her breathing feels better. on 3lnc. breath sounds diminished and tight slight ex wheeze. pt insists she is going home today
[2025-05-07 11:00] VITALS: BP 147/60
--- NOTE | 2025-05-07 12:42 | W.DCSUMMARY ---
Discharge Summary
Discharge Data
Date of Admission: 04/29/25
Date of Discharge: 05/07/25
-
Pending Results: No
Hospital Course
Primary diagnoses:
Acute on Chronic Hypoxemic Respiratory Failure due to acute COPD exacerbation and Asthma
Acute on chronic heart failure with mildly reduced ejection fraction
Secondary diagnoses:
Obesity due to excess calories
Pulmonary Hypertension
Chronic kidney disease stage 3b
Anxiety
Depression
Seasonal allergies
Chronic allergic rhinitis
Steroid-induced leukocytosis
Consultants:
Pulmonary
Cardiology
Imaging:
Echo 04/22/25:
TDS: Recommend Definity for future studies.
Normal LV size with mildly reduced systolic function.
LVEF is 45-50% by visual estimation. Mild global hypokinesis.
Normal right ventricular size and function.
Mild mitral stenosis with mean gradient 6 mmHg, HR 101.
Mild aortic stenosis.
Moderate aortic regurgitation.
Right heart pressures could not be determined.
Compared to prior from October 10, 2024, LV function is now mildly reduced
estimated at 45-50%, previously moderately reduced and estimated at 35-40%, and
MR is now mild, previously moderate.
CT chest:
1. Mild bilateral upper lobe emphysema.
2. Moderately decreased bilateral lung volumes secondary to a moderately exaggerated thoracic kyphosis.
3. Mild calcific atherosclerotic plaque in the coronary arteries.
4. MULTILEVEL SEVERE OSTEOPOROTIC INSUFFICIENCY FRACTURES in the thoracic spine with complete collapse of T6 and T8 and moderate loss of height at T9 and T11.
5. Severe scarring in the left kidney.
75-year-old female who presented with chief complaints of cough and shortness of breath as outlined in H&P done on admission. Hospital course by problem was:
Acute on Chronic Hypoxemic Respiratory Failure: Imaging above. The patient required up to 6L NC O2 on admission and was weaned to her baseline 3L NC O2 by discharge. Her acute on chronic hypoxemic respiratory failure was due to acute COPD
exacerbation and Asthma (patient has COPD and Asthma overlap). At the time of admission the pt was placed on PO steroids, later switched to IV steroids, switched back to PO steroids on 05/05/25. She had high eosinophils and allergy symptoms and
therefore likely had an acute asthma exacerbation in addition to an acute COPD exacerbation. She was treated with Singulair and Claritin. She received DuoNebs. She completed a course of doxycycline. Her leukocytosis was likely steroid-induced.
Pulmonary saw the patient in consultation. She was discharged on Prednisone taper, Albuterol MDI PRN, duonebs PRN. She is to receive dupilumab in a few weeks as an outpatient.
Acute on Chronic HFmrEF: Patient was diuresed with IV Lasix. She was then transition to oral Lasix. Cardiology saw the patient in consultation. Her beta-yin was continued
Discharge Plan
-
Patient Disposition: Home (Routine Discharge)
Discharge Diagnosis/Procedures: Acute on Chronic Hypoxemic Respiratory Failure due to acute COPD exacerbation and Asthma
Condition: Fair
Diet: Low Sodium and Other diet
Additional Diets: fluid restrict to 1200cc/day
Activity: As tolerated
Driving Restrictions: As prior to admission
Blood Work: CBC and BMP in 1 week, prescription from PCP
Specialty Instructions: Weigh Daily- Call MD for wt gain/loss 3 lbs overnight/5 lbs in 1 week
Instructions: *CBC Heart Failure Instructions
Referrals:
Wendy Sher DO [Active, Pulmonary Medicine] - in two weeks
Ant Diaz DO [Family Provider, Family Practice] - in less than 1 week
Prescriptions:
New
montelukast 10 mg Tablet
10 mg PO QPM Qty: 30 0RF
furosemide 20 mg Tablet
20 mg PO DAILY Qty: 30 0RF
prednisone 10 mg tablet
10 mg PO DIRECTED Qty: 70 0RF
Rx Instructions:
Taper: 50mg daily x 4 days, 40mg daily x 4 days, 30mg daily x 4 days, 20mg daily x 4 days, then 10mg daily
Continued
melatonin 5 mg tablet
10 mg PO HSPRN PRN (Reason: sleep)
loratadine [Claritin] 10 mg Tablet
10 mg PO DAILY
aspirin 81 mg Tablet,Chewable
81 mg PO DAILY Qty: 30 0RF
metoprolol succinate 25 mg Tablet Extended Release 24 Hr
25 mg PO HS Qty: 30 0RF
oxycodone 5 mg Tablet
5 mg PO Q6HPRN PRN (Reason: severe pain) Qty: 10 0RF
acetaminophen 325 mg Tablet
650 mg PO Q4HPRN PRN (Reason: mild pain or temp >/= 100.4 F) Qty: 0 0RF
sertraline 50 mg Tablet
50 mg PO DAILY 30 Days Qty: 30 0RF
bupropion HCl 150 mg Tablet Extended Release 24 Hr
150 mg PO DAILY Qty: 0 0RF
calcium carbonate-vitamin D3 [Oyster Shell Calcium-Vit D3] 500 mg-5 mcg (200 unit) Tablet
2 tab PO DAILY 30 Days Qty: 60 0RF
folic acid 1 mg Tablet
1 mg PO DAILY Qty: 30 0RF
guaifenesin 100 mg/5 mL Liquid
200 mg PO Q6HPRN PRN (Reason: cough)
budesonide 0.25 mg/2 mL suspension for nebulization
0.25 mg inhalation R QID
thiamine HCl (vitamin B1) 100 mg tablet
100 mg PO DAILY
Changed
ipratropium-albuterol 0.5 mg-3 mg(2.5 mg base)/3 mL solution for nebulization
3 ml inhalation Q4HPRN PRN (Reason: shortness of breath or wheezing) Qty: 0 0RF
albuterol sulfate [Ventolin HFA] 90 mcg/actuation HFA aerosol inhaler
2 inh inhalation R Q4HPRN PRN (Reason: shortness of breath or wheezing) Qty: 0 0RF
Discontinued
furosemide [Lasix] 20 mg tablet
10 mg PO DAILY Qty: 30 0RF
prednisone 10 mg tablet
10 mg PO DAILY
Discharge Orders:
Discharge Patient (As Directed); Ordered 05/07/25
Ordered By: Juan Beasley
Discharge Date and Time
Print Language: [place]
--- NOTE | 2025-05-07 13:11 | PTCARENOTE ---
Patient discharged home with VN, transported by daughter. IV and tele pack removed by RN Devaughn, vitals taken prior to DC by monique bravo. This RN reviewed discharge instructions/medications with patient who verbalized understanding. Patient dressed
and belongings gathered in room independently. Patient taken down to daughter's car at main lobby by this RN and wheelchair, transported on 3L O2 and transferred to home unit of portable O2 at daughter's car.
== END 2025-05-07 13:18 | disposition home health service (06) | DRG 291 ==
LOC: 2 NORTH 22:25
PROVIDERS: Hospitalist; Nurse Practitioner Family; ADMITTING PHYSICIAN Hospitalist; ATTENDING PHYSICIAN Internal Medicine; CONSULT PHYSICIAN Internal Medicine; CONSULT PHYSICIAN Internal Medicine Cardiovascular Disease; EMERGENCY PHYSICIAN Emergency Medicine; FAMILY PHYSICIAN Family Medicine
DX: I13.0 Hypertensive heart and chronic kidney disease with heart failure and stage 1 through stage 4 chronic kidney disease, or unspecified chronic kidney disease (principal); I50.23 Acute on chronic systolic (congestive) heart failure; J96.21 Acute and chronic respiratory failure with hypoxia; J44.1 Chronic obstructive pulmonary disease with (acute) exacerbation; M48.56XA Collapsed vertebra, not elsewhere classified, lumbar region, initial encounter for fracture; N18.32 Chronic kidney disease, stage 3b; I27.20 Pulmonary hypertension, unspecified; F41.9 Anxiety disorder, unspecified; F32.A Depression, unspecified; J30.2 Other seasonal allergic rhinitis; T38.0X5A Adverse effect of glucocorticoids and synthetic analogues, initial encounter; D72.828 Other elevated white blood cell count; Z79.82 Long term (current) use of aspirin; Z79.52 Long term (current) use of systemic steroids; Z79.899 Other long term (current) drug therapy; Z87.891 Personal history of nicotine dependence; Z88.0 Allergy status to penicillin; Z99.81 Dependence on supplemental oxygen; Z68.31 Body mass index [BMI] 31.0-31.9, adult; E66.09 Other obesity due to excess calories; G47.33 Obstructive sleep apnea (adult) (pediatric); G89.29 Other chronic pain; M48.00 Spinal stenosis, site unspecified; Z11.52 Encounter for screening for COVID-19
CPT/HCPCS: 71045; 71046; 71250; 80048; 80053; 83735; 83880; 85025; 85027; 87502; 87811; 93005; 94640; 96374; 96375; 97163; 99285

== ENCOUNTER 2025-07-02 19:11 | Inpatient (IN) | payer MEDICARE, SELFPAY ==
[2025-07-02 15:38] VITALS: BP 109/78
[2025-07-02 15:58] LABS: Hematocrit 35.4 % (37.0-47.0); Hemoglobin 10.6 g/dL (12.0-16.0); Mean Corp Hgb Conc. 29.9 g/dL (33.0-37.0); Mean Corpuscular Volume 90.3 fL (81.0-99.0); Nucleated Red Blood Cells % 0 %; Platelet Count 423 10^3/uL (130-400); Red Cell Dist. Width 16.2 % (11.5-14.5)
[2025-07-02 16:03] LABS: INR 0.94; PT 12.8 Sec (11.4-14.6)
[2025-07-02 16:10] LABS: ALT (SGPT) 15 U/L (0-35); AST (SGOT) 20 U/L (14-36); Albumin 4.2 g/dl (3.5-5.0); Alkaline Phosphatase 148 U/L (38-126); Blood Urea Nitrogen 41 mg/dl (7-17); Calcium 10.0 mg/dl (8.4-10.2); Carbon Dioxide 30 mmol/L (22-30); Chloride 102 mmol/L (98-107); Glucose 135 mg/dl (70-99); Potassium 5.0 mmol/L (3.5-5.1); Sodium 137 mmol/L (135-145); Total Protein 7.1 g/dl (6.3-8.2); eGFR 31.08
[2025-07-02 16:21] LABS: Troponin I < 0.012 ng/ml
--- NOTE | 2025-07-02 16:51 | ED.GENMED ---
History of Present Illness
General
Chief Complaint: Breathing Problem
Source: patient
Exam Limitations: none
Time Seen by Provider: 07/02/25 16:49
Nursing documentation reviewed up to this point in time: agreed with
History of Present Illness
History of Present Illness:
Note:
CHIEF COMPLAINT(S)
Shortness of breath and persistent pain.
HISTORY OF PRESENT ILLNESS
The patient is a 75-year-old female with a known history of chronic obstructive pulmonary disease (COPD), presenting with persistent pain and fluctuating oxygen saturation levels. She reports that despite prior evaluations, her discomfort persists,
and she experiences difficulty with her breathing. The patient states, 'this pain just doesnt stop and my pulse goes up and down.' Recent assessment by the palliative care team noted decreased air movement in the lungs with crackling sounds,
consistent with an exacerbation of her COPD. The patients daughter confirms these symptoms and assists with her care. The patient was noted to be hypoxic with a 70% oxygen saturation, which is improving. She exhibits moderate respiratory distress,
evidenced by tachypnea and tachycardia, and experiences claustrophobia and anxiety, making it difficult to tolerate a face mask.
CHRONIC MEDICAL CONDITIONS SIGNIFICANTLY AFFECTING CARE
- Chronic Obstructive Pulmonary Disease (COPD)
SOCIAL HISTORY
The patients daughter is involved in her care and present during the visit.
PHYSICAL EXAM
General: Patient in moderate respiratory distress.
Cardiovascular: Tachycardia noted.
Respiratory: Decreased breath sounds in all lung mejia, tachypnea observed.
Neurological: Alert and oriented to person, place, time, and situation.
PROBLEM LIST
Acute Problems:
- Hypoxia
- Respiratory Distress
- COPD Exacerbation
PLAN
- Increase oxygen delivery to manage hypoxia.
- Consider corticosteroids to address COPD exacerbation.
- Monitor patients respiratory status and adjust treatment as necessary.
DIFFERENTIAL DIAGNOSIS
The Differential Diagnosis includes, in no particular order and is not limited to:
- COPD Exacerbation
- Pneumonia
- Pulmonary Embolism
- Heart Failure
- Acute Bronchitis
- Asthma
- Pleural Effusion
- Pneumothorax
- Interstitial Lung Disease
- Anemia
EKG
My independent EKG interpretation is:
- Time of EKG: Not specified
- Rhythm: Sinus tachycardia
- Heart Rate: 107 bpm
- CT Interval: Normal
- QRS Duration: Normal
- QT Interval: Normal
- Poyen: Normal
- Abnormalities: Non-specific T-wave abnormality
Disposition:
SUMMARY OF ENCOUNTER
The patient is a 75-year-old female with a history of chronic obstructive pulmonary disease (COPD) who presented to the emergency department with hypoxia and respiratory distress. She was observed and managed in the emergency department with
mid-flow oxygen therapy, which resulted in an improvement in her condition. A chest x-ray was performed and showed no signs of focal pneumonia. Based on her initial presentation and risk factors, a differential diagnosis considered included an
exacerbation of COPD, pneumonia, or congestive heart failure (CHF). After observation and treatment, her respiratory status improved, and she was noted to be in fair condition.
DISPOSITION
Admit to observation.
ASSESSMENT
The primary concern is an exacerbation of COPD resulting in hypoxia. Pneumonia and CHF were considered but deemed less likely due to the absence of focal pneumonia on the chest x-ray.
INDEPENDENT REVIEW OF LABS AND INTERPRETATION OF TESTS
My independent interpretation of the chest x-ray is that there were no signs of focal pneumonia.
MANAGEMENT OF THE PATIENTS CARE WAS DISCUSSED WITH
The hospitalist was consulted to discuss the patients management and possible admission for observation.
MEDICAL DECISION MAKING
-Complexity of Data Reviewed: Chronic conditions affecting care include COPD. Differential diagnosis includes COPD exacerbation, pneumonia, pulmonary embolism, heart failure, acute bronchitis, asthma, pleural effusion, pneumothorax, interstitial
lung disease, and anemia.
-Data:
Category 1
My independent interpretation of the chest x-ray showed no signs of focal pneumonia.
Category 3
Discussion of management with a hospitalist regarding the patients condition and disposition to observation.
DIAGNOSIS
- COPD exacerbation (J44.1)
- Hypoxia (R09.02)
Past History
Past History
ED Past Medical History: CHF, COPD (2-3 liters NC), Psychiatric (Anxiety, Depression, ) and Other (Spinal stenosis, morbid obesity, Bilateral kidney stones, Ulcers, Sleep apnea, Shingles, )
ED Past Surgical History: Cholecystectomy, Orthopedic (Left shoulder reconstruction. ), Urological (Kidney surgery) and Other (Fasciotomy for fasciitis with wound VAC of lower back and thigh)
Social History
Tobacco: Former smoker
Alcohol: None
Drug: None
Personal:
Living: alone
Employment: Retired
Family History
Family History: Other (Noncontributory)
Phy Exam
Physical Exam
Physical Exam:
.
Scores
Heart Failure Risk
Heart Failure Risk Score: Not Applicable
Course
Orders/Labs/Results
Orders:
Orders
07/02/25 15:42
EKG [Electrocardiogram (*1)] Urgent
Reason for Study: Shortness of Breath
EKG- Treatment ONCE
07/02/25 15:50
Complete Blood Count/With Diff Urgent
Comprehensive Metabolic Panel Urgent
NT-proBNP Urgent
Comment: ADDON
Prothrombin Time Urgent
Troponin I Urgent
07/02/25 16:50
Dexamethasone Sod Phosphate [Decadron] 10 mg IV NOW STA
Ipratropium/Albuterol Sulfate [Duoneb] 3 ml INH R NOW STA
07/02/25 16:51
CR Chest Portable - 1 View Urgent
Comment:
Reason For Exam: short of breath, hypoxia
Reason Study Needs to be Portable: Patient Unstable
07/02/25 17:39
Add On- LAB Urgent
Tests Added?: bnp
Ipratropium/Albuterol Sulfate [Duoneb] 3 ml INH R NOW STA
07/02/25 18:46
Oxycodone [Roxicodone] 5 mg PO NOW STA
07/02/25 18:53
Admit/Transfer Patient As Directed
Co-Sign Provider:
Level of Care: Inpatient admission
Assign to:: Telemetry
Physician / Group: Kain Casiano
Diagnosis: acute on chronic hypoxic respiratory failure, acute COPD exacerbation
Reason for Telemetry: Arrhythmia
Date to Stop Telemetry: 07/05/25
Time to Stop Telemetry: 11:00
Reason for Hospitalization: acute on chronic hypoxic respiratory failure, acute COPD exacerbation
Expected length of stay greater than two midnights?: Yes
ELOS- Estimated Length of Stay in days: 3
I certify the patient meets the requirements for IP care: Yes
PRN Pain Medication Management As Directed
May give lesser potent ordered pain med per pt: Yes
preference::
Protocol:: Medication orders for pain may be administered in a
manner that supports deferring to patient preference
when the pt is:
- Requesting an ordered lesser potent pain medication.
Least to most potent pain medications are defined
as: acetaminophen < NSAID < tramadol < opioids
(morphine, oxycodone, hydromorphone).
- Requesting a lesser dose of the same medication IF
ORDERED.
- Requesting a less intrusive route of administration
if both routes are prescribed by the provider (PO <
IV).
07/02/25 18:54
Code Status As Directed
Resuscitation Status: Full Code
07/05/25 11:00
DC Protocol for Telemetry ONCE
Abnormal Lab Results
07/02/25
15:50
WBC 13.4 H 10^3/uL
(4.8-10.8)
RBC 3.92 L 10^6/uL
(4.20-5.40)
Hgb 10.6 L g/dL
(12.0-16.0)
Hct 35.4 L %
(37.0-47.0)
MCHC 29.9 L g/dL
(33.0-37.0)
RDW 16.2 H %
(11.5-14.5)
Plt Count 423 H 10^3/uL
(130-400)
Abs Immat Gran (auto) 0.1 H 10^3/uL
(0-0.05)
Absolute Neuts (auto) 10.4 H 10^3/uL
(1.4-6.5)
Absolute Monos (auto) 1.0 H 10^3/uL
(0.1-0.6)
Immature Gran % 0.6 H %
(0-0.5)
Neutrophils % 77.8 H %
(42.2-75.2)
Lymphocytes % 11.5 L %
(20.5-51.1)
BUN 41 H mg/dl
(7-17)
Creatinine 1.7 H mg/dL
(0.6-1.0)
Glucose 135 H mg/dl
(70-99)
Alkaline Phosphatase 148 H U/L
(38-126)
07/02/25 15:50
07/02/25 15:50
Vital Signs
Initial and Last Documented VS:
Initial Vital Signs
Temp Pulse Resp BP Pulse Ox
98.4 F 114 17 109/78 93
07/02/25 15:38 07/02/25 15:38 07/02/25 15:38 07/02/25 15:38 07/02/25 15:38
Last Documented Vital Signs
Temp Pulse Resp BP Pulse Ox
98.4 F 102 22 156/75 94
07/02/25 15:38 07/02/25 19:00 07/02/25 19:00 07/02/25 19:00 07/02/25 19:08
*Pulse Oximetry
SaO2: 93
Nasal Cannula flow liters per minute: 5
Patient hypoxic: yes
*Critical Care Note
Total Time (30-74mins, 75-104mins- exclusive of procedures): Not Applicable
ED Attending Note
-
Portions of this chart may have been created with voice recognition software.� Occasional wrong word or��sound alike� substitutions may have occurred due to the inherent limitations of voice recognition software.
Discharge Plan
Departure
Patient Disposition: Admit
Date of Disposition: 07/02/25
Time of Disposition: 17:40
Admit to: IMU
Presentation/result/management discussed w/ accepting MD/DO: Hospitalist
Patient with high blood pressure during this ER visit?: No
Condition: Fair
Discharge Problem:
Acute exacerbation of chronic obstructive pulmonary disease, Sciatica
Interventions
Interventions:
*Risk Screen - Suicide Last Done: 07/02/25 15:41
*General Assessment Last Done: 07/02/25 15:41
*Neglect/Abuse Screening Last Done: 07/02/25 15:41
*ED COVID-19 Vaccine History Last Done: 07/02/25 15:41
ED- Cardiac Assessment Last Done: 07/02/25 17:00
ED- Pulmonary Assessment Last Done: 07/02/25 17:00
[2025-07-02] MEDS: DECADRON 10 MG IV (17:20)
[2025-07-02] MEDS: DUONEB 3 ML INH ×2 (17:21→18:25)
--- NOTE | 2025-07-02 17:44 | HPS.HSE ---
Family Physician
-
Family Physician: Ant Diaz
Chief Complaint
-
hypoxia
History of Present Illness
Patient is a 75-year-old female with past medical history significant for chronic hypoxic respiratory insufficiency, COPD, chronic HFpEF, CKD Stage III, anxiety/depression, morbid obesity and obstructive sleep apnea who presented to [facility] ED for
evaluation of hypoxia. Patient and daughter at bedside who assisted in HPI. Patient had Palliative team visit today and discuss hospice options. When there patient was found to be hypoxic into the 70s and she reports that it started on Tuesday with
severe left siatic pain and then she states the pain was increasing her shortness of breath. Denies any fever, chills, travel or recent sick contact.
Medical History
Past Medical History
Past Medical History: Reports Other
Additional Past Medical History:
chronic hypoxic respiratory insufficiency
COPD
chronic HFpEF
valvular heart disease: mild aortic stenosis, mild/moderate mitral regurg
CKD Stage III
chronic back pain secondary to L2 compression fracture
anxiety/depression
morbid obesity
obstructive sleep apnea
Past Surgical History: Reports Other
Additional Past Surgical History:
Cholecystectomy
Left Shoulder Reconstruction
Fasciotomy
Social History
Tobacco: Former Smoker
Alcohol: None
Drug: None
Living: With Family
Employment: Retired
Family History
Family History: Not pertinent
Allergies / Home Medications
Allergies reflects when Allergies were last updated in [employer].
Home Medications with original date entered in [employer]
Allergy/Medication List:
Allergies
Allergy/AdvReac Type Severity Reaction Status Date / Time
ampicillin Allergy Hives Verified 07/02/25 15:40
coconut Allergy Hives Verified 07/02/25 15:40
mustard Allergy Hives Verified 07/02/25 15:40
Home Medications
melatonin 5 mg tablet 10 mg PO HSPRN PRN sleep 06/22/24
loratadine 10 mg tablet (Claritin) 10 mg PO DAILY Allergies 10/08/24
aspirin 81 mg chewable tablet 81 mg PO DAILY #30 tabs 10/22/24
metoprolol succinate 25 mg tablet,extended release 24 hr 25 mg PO HS #30 tabs 10/22/24
oxycodone 5 mg tablet 5 mg PO Q6HPRN PRN severe pain #10 tabs 10/22/24
acetaminophen 325 mg tablet 650 mg (2 x 325 mg) PO Q4HPRN PRN mild pain or temp >/= 100.4 F #0 tabs 11/15/24
bupropion HCl 150 mg 24 hr tablet, extended release 150 mg PO DAILY #0 tabs 11/15/24
calcium 500 mg (as carbonate)-vitamin D3 5 mcg (200 unit) tablet (Oyster Shell Calcium-Vitamin D3) 2 tab PO DAILY 30 days #60 tabs 11/15/24
folic acid 1 mg tablet 1 mg PO DAILY #30 tabs 11/15/24
sertraline 50 mg tablet 50 mg PO DAILY 30 days #30 tabs 11/15/24
budesonide 0.25 mg/2 mL suspension for nebulization 0.25 mg inhalation R QID Lung/Breathing Issues 04/29/25
guaifenesin 100 mg/5 mL oral liquid 200 mg PO Q6HPRN PRN cough 04/29/25
thiamine HCl (vitamin B1) 100 mg tablet 100 mg PO DAILY Supplement 04/29/25
albuterol sulfate 90 mcg/actuation aerosol inhaler (Ventolin HFA) 2 inh inhalation R Q4HPRN PRN shortness of breath or wheezing #0 grams 05/07/25
furosemide 20 mg tablet 20 mg PO DAILY #30 tabs 05/07/25
ipratropium 0.5 mg-albuterol 3 mg (2.5 mg base)/3 mL nebulization soln 3 ml inhalation Q4HPRN PRN shortness of breath or wheezing #0 mL 05/07/25
montelukast 10 mg tablet 10 mg PO QPM #30 tabs 05/07/25
prednisone 10 mg tablet 2.5 mg PO DAILY 07/02/25
Review of Systems
-
History Source: Patient
Constitutional: Reports No Symptoms
EENT: Reports No Symptoms
Respiratory: Reports Cough and Trouble Breathing
Cardiac: Reports No Symptoms
Abdomen/GI: Reports No Symptoms
: Reports No Symptoms
Musculoskeletal: Reports No Symptoms
Skin: Reports No Symptoms
Neurological: Reports No Symptoms
Endocrine: Reports No Symptoms
Hematologic/Lymphatic: Reports No Symptoms
Psych: Reports No Symptoms
Physical Exam
Vital Signs
Vital Signs
Temp Pulse Resp BP Pulse Ox
98.4 F 114 17 109/78 93
07/02/25 15:38 07/02/25 15:38 07/02/25 15:38 07/02/25 15:38 07/02/25 16:51
Physical Exam
General: Well Developed, Well Nourished, No Apparent Distress and Obese
HEENT: NormoCephalic, Moist mucous membranes and Atraumatic
Respiratory: Clear, Wheezes, Decreased Breath Sounds and Other (O2 at 5L increased from baseline 3L at home )
Cardiac: S1/S2 and Regular Rhythm; No Murmur, Rub or Gallop
Breast: Deferred by me
GI: Soft, Non Tender, Non Distended and Normal Bowel Sounds; No Organomegaly
Rectal: Deferred by Provider
Genito-urinary: Deferred by me
Musculoskeletal: No Clubbing, No Cyanosis and No Edema
Skin: Warm and IV/Catheter Site
Neuro: Awake, AO x 3 and Nonfocal/grossly intact
Hematologic/Lymphatic: No Lymphadenopathy
Psych: Calm and Intact Judgment/Insight
Laboratory Results
-
07/02/25 15:50
07/02/25 15:50
Laboratory Results
PT 12.8 Sec (11.4-14.6) 07/02/25 15:50
INR 0.94 07/02/25 15:50
Total Bilirubin 0.6 mg/dl (0.2-1.3) 07/02/25 15:50
AST 20 U/L (14-36) 07/02/25 15:50
ALT 15 U/L (0-35) 07/02/25 15:50
Alkaline Phosphatase 148 U/L (38-126) H 07/02/25 15:50
Troponin I < 0.012 ng/ml 07/02/25 15:50
Data Reviewed
-
Diagnostic Radiology: Report Reviewed by me (CXR: Slightly prominent bilaterally. Interstitial markings again seen, cannot differentiate chronic acute superimposed upon chronic interstitial process. Some acute differential diagnostic possibilities
would be interstitial edema or pneumonitis.)
Medical Tests (Nuc Med, Echo, EKG etc): Report Reviewed by me (EKG: SINUS TACHYCARDIA)
Lab Data: Labs Reviewed by me (WBC 13.4, Neut 77.8, BUN 41, Creat 1.7, eGFR 31.08)
Impression/Plan
-
IMPRESSION/PLAN:
#acute on chronic hypoxic respiratory failure
#COPD with acute exacerbation
WBC 13.4, Neut 77.8
CXR: Slightly prominent bilaterally. Interstitial markings again seen, cannot differentiate chronic acute superimposed upon chronic interstitial process. Some acute differential diagnostic possibilities would be
interstitial edema or pneumonitis.
EKG: SINUS TACHYCARDIA
- Admit to telemetry
- IV dexamethasone
- DuoNeb QID and PRN
- wean oxygen to baseline as tolerated
- continue albuterol, budesonide, guaifenesin and Claritin
#chronic HFpEF
- daily weights
- I & Os
- continue aspirin, folic acid, furosemide and metoprolol
- increase furosemide 20mg daily
#CKD Stage III
BUN 41, Creat 1.7, eGFR 31.08
- monitor BMP
#anxiety/depression
- continue bupropion and sertraline
#chronic back pain secondary to L2 compression fracture
- continue oxycodone
#morbid obesity
#obstructive sleep apnea
Code status: full code
DVT prophylaxis: heparin sq
[2025-07-02 18:00] VITALS: BP 124/67
[2025-07-02] MEDS: ROXICODONE 5 MG PO ×2 (18:56→23:11)
[2025-07-02 19:00] VITALS: BP 156/75
--- NOTE | 2025-07-02 19:00 | W.PN.UPDATE ---
Update Note
Progress Note Update
This note serves as an addendum to the H&P by boat repairer EMILY�
Sarah North
HPI�
75F HX home 2l O2 and steroid dependent seen at ER
- sciatic nerve pain
- SoB and COPD flare arrives wearing 5L O2
- palliative care eval today and discussed hopice
Reviewed VS:
Temp Pulse Resp BP Pulse Ox
98.4 F 114 17 109/78 93
07/02/25 15:38 07/02/25 15:38 07/02/25 15:38 07/02/25 15:38 07/02/25 16:51
PE
Gen: NAD, AAOx3, appears chronically ill.
Eyes: EOMI, PERRLA, no scleral icterus.
Neck: supple.
CV: RRR, +S1/S2, no m/r/g.
Resp: B/L mild wheezes rhonchi.
Abd: +BS, soft, NT, ND
Skin: Intact
Neuro: CN 2-12 intact, non-focal.
Psych: Normal mood and affect.
Relevant Data�
07/02/25
15:50
WBC 13.4 H
RBC 3.92 L
Hgb 10.6 L
Hct 35.4 L
MCHC 29.9 L
RDW 16.2 H
Plt Count 423 H
Abs Immat Gran (auto) 0.1 H
Absolute Neuts (auto) 10.4 H
Absolute Monos (auto) 1.0 H
Immature Gran % 0.6 H
Neutrophils % 77.8 H
Lymphocytes % 11.5 L
BUN 41 H
Creatinine 1.7 H
Glucose 135 H
Alkaline Phosphatase 148 H
CXR
Slightly prominent bilaterally. Interstitial markings again seen, cannot differentiate chronic acute superimposed upon chronic interstitial process. Some acute differential diagnostic possibilities would be interstitial edema or pneumonitis.
Echo 04/22/25:
LVEF is 45-50% by visual estimation. Mild global hypokinesis.
Normal right ventricular size and function.
Mild mitral stenosis with mean gradient 6 mmHg, HR 101.
Mild aortic stenosis.
Moderate aortic regurgitation.
Right heart pressures could not be determined.
Compared to prior from October 10, 2024, LV function is now mildly reduced
estimated at 45-50%, previously moderately reduced and estimated at 35-40%, and
MR is now mild, previously moderate.
05/04/25 CT chest:
1. Mild bilateral upper lobe emphysema.
2. Moderately decreased bilateral lung volumes secondary to a moderately exaggerated thoracic kyphosis.
3. Mild calcific atherosclerotic plaque in the coronary arteries.
4. MULTILEVEL SEVERE OSTEOPOROTIC INSUFFICIENCY FRACTURES in the thoracic spine with complete collapse of T6 and T8 and moderate loss of height at T9 and T11.
5. Severe scarring in the left kidney.
Last hospitalist admission:
Date of Admission: 04/29/25 - Date of Discharge: 05/07/25
Primary diagnoses:
Acute on Chronic Hypoxemic Respiratory Failure due to acute COPD exacerbation and Asthma
Acute on chronic heart failure with mildly reduced ejection fraction
ASSESSMENT & PLAN
Pending Rx reconciliation
Chr sciatica flare uo
- chr Oxy 5mg q6g
- additional Oxycodone for berak thru pain
Acute on Chronic Hypoxemic RF
COPD flare
Of note: doubt patient is mentally ready for hospice care
-,correctly requiring 5 L O2 - goal POx above > 88
- baseline 3L NC O2
- IV Decadron 4mg q8h
- cont Singulair/Claritin
- cont DuoNeb
- Pul consult
- OP palliative care f/u
Chronic HFmrEF:
- PO Lasix
- check proBNP
- daily Wt
Other problems:
Steroid-induced leukocytosis
Pulmonary Hypertension
CKD3b
Anxiety/Depression: continue bupropion and sertraline
Seasonal allergies
Chronic allergic rhinitis
Obesity due to excess calories
DVT Px: LMWH
Full code
IP TLM
[2025-07-02 19:50] VITALS: BMI 29.0
--- NOTE | 2025-07-02 20:00 | PTCARENOTE ---
Pt arrived to rm 421 from ED, pullover assist x3 from stretcher into bed. Pt reports severe back pain on admission but states that she will 'wait until 11' for her pain meds. Pt oriented to room, call moyer in reach. VSS, pt is 96% on 6L of
midflow nasal cannula. POC reviewed with pt.
[2025-07-02 20:37] VITALS: BMI 29.0
[2025-07-02 21:50] VITALS: BP 149/71
[2025-07-02] MEDS: TOPROL XL 25 MG PO (22:15)
[2025-07-02] MEDS: PULMICORT INH (22:17)
[2025-07-02] MEDS: DUONEB INH (22:17)
[2025-07-02 23:00] VITALS: BP 122/78
[2025-07-02] MEDS: DESENEX/MITRAZOL/ZEASORB 1 APPLIC TOPICAL (23:10)
[2025-07-02] MEDS: DECADRON 4 MG IV (23:11)
[2025-07-02] MEDS: HEPARIN 5000 UNITS SC (23:11)
--- NOTE | 2025-07-03 02:41 | DOWNTIME ---
There was a [employer] Downtime on 07/03/2025 from 0100 to 07/03/2025 at 0235. Downtime documentation of patient's care, including medication administrations, has been reconciled in the electronic record per guidelines. Refer to the
patient's paper chart under the miscellaneous tab to see printed paper medication records and downtime forms.
[2025-07-03 03:00] VITALS: BP 124/56
[2025-07-03 03:26] VITALS: BMI 29.0
[2025-07-03 07:00] VITALS: BP 142/65
--- NOTE | 2025-07-03 07:09 | W.PN.HOSP.TC ---
Today's Communication/Plan
-
On going care plan
Assessment / Plan
Assessment / Plan
#Acute on chronic hypoxic respiratory failure
Patient is currently on oxygen therapy via nasal cannula on 6L/min with O2 averaging 96%
#COPD with acute exacerbation
CXR: & EKG=Benign
WBC 13.4, Neut 77.8, likely prednisolone
#Chronic HFpEF
- Aspirin, folic acid, furosemide and metoprolol
- increase furosemide 20mg daily
#CKD Stage III
-BUN/Cr 38/1.7 (41/1.7), eGFR 31.08
-
-Monitor BMP
#Anxiety/depression
- continue bupropion and sertraline
#Chronic back pain secondary to L2 compression fracture
- continue oxycodone
Code status: full code
DVT prophylaxis: heparin sq
Anticipated Discharge: > 48 hours
Subjective/Interval History
-
Date of Service: July 03, 2025
75-year-old female with a known history of (COPD), presenting with fluctuating oxygen saturation levels and, persistent severe left siatic pain that she states increases her shortness of breath. Denies any fever, chills, travel or recent sick
contact.
C/O SOB
Objective Data
-
Labs:
Laboratory Results
07/03/25
06:00
Sodium Pending
Potassium Pending
Chloride Pending
Carbon Dioxide Pending
BUN Pending
Creatinine Pending
Glucose Pending
Calcium Pending
Vital Signs:
Vital Signs
Temp Pulse Resp BP Pulse Ox
97.6 F 78 18 124/56 93
07/03/25 03:00 07/03/25 03:00 07/03/25 03:00 07/03/25 03:00 07/03/25 03:00
I&O
07/02/25 07/03/25 07/04/25
06:59 06:59 06:59
Intake Total 480 / 480
Balance 480 / 480
Review of Systems
-
History Source: Patient
Constitutional: Reports No Symptoms
EENT: Reports No Symptoms Reported
Respiratory: Reports Trouble Breathing and Wheezing
Cardiac: Reports No Symptoms
Abdomen/GI: Reports No Symptoms
Genitourinary: Reports No Symptoms
Musculoskeletal: Reports Other (Pain)
Physical Exam
-
General: Well Developed, Well Nourished, No Apparent Distress and Comfortable
HEENT: Normocephalic, Atraumatic, Moist Mucous Membranes, No Ptosis, PERRLA and Nose Appears Normal
Respiratory: Wheezes, Rales, Rhonchi and Non Labored Respirations
Cardiac: Regular Rhythm and S1/S2
GI: Soft, Nontender, Nondistended and Normal Bowel Sounds
Skin: Warm
Neuro: Awake, Alert, Oriented, AO x 3 and No Motor Deficits
Psych: Calm
Data Reviewed
-
Labs: Labs Reviewed by me, Discussed with Physician and Discussed with Patient
[2025-07-03] MEDS: DECADRON 4 MG IV ×3 (08:04→23:26)
[2025-07-03] MEDS: ZOLOFT 50 MG PO (08:04)
[2025-07-03] MEDS: VITAMIN B1 100 MG PO (08:04)
[2025-07-03] MEDS: FOLVITE 1 MG PO (08:04)
[2025-07-03] MEDS: HEPARIN 5000 UNITS SC ×3 (08:04→23:25)
[2025-07-03] MEDS: WELLBUTRIN XL (24 hour extended release) 150 MG PO (08:04)
[2025-07-03] MEDS: LOW STRENGTH ASPIRIN 81 MG PO (08:04)
[2025-07-03] MEDS: OSCAL 500 + D 1000 MG PO (08:04)
[2025-07-03] MEDS: CLARITIN 10 MG PO (08:04)
[2025-07-03] MEDS: LASIX 20 MG PO (08:05)
[2025-07-03] MEDS: ROXICODONE 5 MG PO (08:17)
[2025-07-03] MEDS: DUONEB 3 ML INH ×4 (08:20→19:41)
[2025-07-03] MEDS: PULMICORT 0.25 MG INH ×2 (08:20→19:41)
[2025-07-03 08:30] LABS: Blood Urea Nitrogen 38 mg/dl (7-17); Calcium 9.3 mg/dl (8.4-10.2); Carbon Dioxide 28 mmol/L (22-30); Chloride 104 mmol/L (98-107); Estimated Creatinine Clearance 33 ml/min; Glucose 153 mg/dl (70-99); Potassium 4.9 mmol/L (3.5-5.1); Sodium 138 mmol/L (135-145); eGFR 31.08
[2025-07-03] MEDS: DESENEX/MITRAZOL/ZEASORB 1 APPLIC TOPICAL ×2 (09:17→21:57)
[2025-07-03 11:00] VITALS: BP 141/68
--- NOTE | 2025-07-03 11:38 | CON.PUL ---
Consultation
Consultation Request
Date/Time Consultation Requested: 07/03/2025-8 AM
Date/Time Consultation Performed: 07/03/2025-9:30 AM
Requesting Provider: Hospitalist
Performing Provider: Dr. Diaz
Reason for Consultation: Shortness of breath
Medical History
-
Chief Complaint: Shortness of breath
History of Present Illness:
75-year-old former smoking female with a history of underlying COPD, chronic hypoxemia, chronic heart failure preserved EF, chronic kidney disease, anxiety, depression, obstructive sleep apnea and obesity complained of severe left-sided sciatica and
increasing shortness of breath and was admitted with COPD exacerbation-pulmonary consulted for shortness of breath 07/03/2025. Patient states that she is feeling improved from yesterday. She states that the sciatica was unbearable which caused her
to have increasing shortness of breath. She had significant dyspnea with minimal exertion. She denies any chest pain, chest tightness but admits to some wheezing. She has no chest congestion, productive cough, mopped assist, or pleurisy. She
does not complain of any abdominal pain, nausea, focal weakness or increasing lower extremity swelling.
Past Medical History
Past Medical History: None (COPD. Chronic heart failure preserved EF. Aortic stenosis-mild. Moderate mitral regurgitation. Chronic kidney disease stage III. Chronic back pain/L2 compression fracture. Anxiety/depression. Morbid obesity.
Obstructive sleep apnea. Cholecystectomy. Left shoulder reconstruction. Fasciotom)
Social History
Tobacco: Former Smoker ([id number] quit 05/11/2022)
Alcohol: None
Drug: None
Living: With Family
Occupational Exposures: No known asbestos exposure
Environmental Exposures: No known tuberculosis exposure
Family History
Family History: Reviewed & Not Pertinent (Father-diabetes. Mother-CVA and CAD)
Allergies / Home Medications
Allergies
Allergy/AdvReac Type Severity Reaction Status Date / Time
ampicillin Allergy Hives Verified 07/02/25 15:40
coconut Allergy Hives Verified 07/02/25 15:40
mustard Allergy Hives Verified 07/02/25 15:40
Home Medications
�Medication �Instructions �Recorded �Confirmed �Last Taken �Type
melatonin 5 mg tablet 10 mg PO HSPRN PRN sleep 06/22/24 07/02/25 Unknown History
loratadine 10 mg tablet (Claritin) 10 mg PO DAILY Allergies 10/08/24 07/02/25 04/29/25 History
aspirin 81 mg chewable tablet 81 mg PO DAILY #30 tabs 10/22/24 07/02/25 04/29/25 Rx
metoprolol succinate 25 mg 25 mg PO HS #30 tabs 10/22/24 07/02/25 04/28/25 Rx
tablet,extended release 24 hr
oxycodone 5 mg tablet 5 mg PO Q6HPRN PRN severe pain #10 10/22/24 07/02/25 04/29/25 Rx
tabs
acetaminophen 325 mg tablet 650 mg (2 x 325 mg) PO Q4HPRN PRN 11/15/24 07/02/25 Unknown Rx
mild pain or temp >/= 100.4 F #0
tabs
bupropion HCl 150 mg 24 hr tablet, 150 mg PO DAILY #0 tabs 11/15/24 07/02/25 04/29/25 Rx
extended release
calcium 500 mg (as 2 tab PO DAILY 30 days #60 tabs 11/15/24 07/02/25 04/29/25 Rx
carbonate)-vitamin D3 5 mcg (200
unit) tablet (Oyster Shell
Calcium-Vitamin D3)
folic acid 1 mg tablet 1 mg PO DAILY #30 tabs 11/15/24 07/02/25 04/29/25 Rx
sertraline 50 mg tablet 50 mg PO DAILY 30 days #30 tabs 11/15/24 07/02/25 04/29/25 Rx
budesonide 0.25 mg/2 mL suspension 0.25 mg inhalation R QID 04/29/25 07/02/25 04/29/25 History
for nebulization Lung/Breathing Issues
guaifenesin 100 mg/5 mL oral liquid 200 mg PO Q6HPRN PRN cough 04/29/25 07/02/25 04/28/25 History
thiamine HCl (vitamin B1) 100 mg 100 mg PO DAILY Supplement 04/29/25 07/02/25 04/29/25 History
tablet
albuterol sulfate 90 mcg/actuation 2 inh inhalation R Q4HPRN PRN 05/07/25 07/02/25 Unknown Rx
aerosol inhaler (Ventolin HFA) shortness of breath or wheezing #0
grams
furosemide 20 mg tablet 20 mg PO DAILY #30 tabs 05/07/25 07/02/25 Unknown Rx
ipratropium 0.5 mg-albuterol 3 mg 3 ml inhalation Q4HPRN PRN 05/07/25 07/02/25 04/29/25 Rx
(2.5 mg base)/3 mL nebulization shortness of breath or wheezing #0
soln mL
montelukast 10 mg tablet 10 mg PO QPM #30 tabs 05/07/25 07/02/25 Unknown Rx
prednisone 10 mg tablet 2.5 mg PO DAILY 07/02/25 07/02/25 Unknown History
Review of Systems
-
Unable to Obtain full review of systems at this time due to: Other (Per HPI)
Vitals / Labs / Diagnostic Testing
Vital Signs
Temp Pulse Resp BP Pulse Ox
98.4 F 64 18 142/66 96
07/03/25 07:00 07/03/25 07:00 07/03/25 11:32 07/03/25 08:05 07/03/25 11:32
Lab Data
07/02/25 15:50
07/03/25 07:10
Laboratory Results
07/02/25
15:50
PT 12.8
INR 0.94
Diagnostic Testing:
Physical Exam
-
Exam:
Well-nourished and well-developed in no apparent distress
HEENT-atraumatic, normocephalic
Neck-supple, no JVD, no bruit
Heart-regular rate and rhythm-no murmurs, rubs or gallops
Chest with diminished breath sounds, prolonged expiratory time, mild barrel chest tightness, few basilar crackles and forced end expiratory wheezing
Back without tenderness
Abdomen-soft, nontender, nondistended, no hepatosplenomegaly
Extremities-no cyanosis, clubbing, trace lower extremity edema
Integument-intact, no rashes, lesions or ecchymosis
Neurology-alert and oriented, nonfocal motor and sensory exam
Assessment
-
75-year-old former smoking female with a history of underlying COPD, chronic hypoxemia, chronic heart failure preserved EF, chronic kidney disease, anxiety, depression, obstructive sleep apnea and obesity complained of severe left-sided sciatica and
increasing shortness of breath and was admitted with COPD exacerbation-pulmonary consulted for shortness of breath 07/03/2025.
Advanced COPD with acute exacerbation
Chronic heart failure preserved EF
Leukocytosis-WBC 13.4
Mild nvaxqn-lqarzofkte-ahbmurmlqx 10.6
Thrombocytosis
Hyperglycemia
Sciatica
Conditions present prior to admission:
COPD/asthma overlap-currently on 2-3 L oxygen, budesonide and DuoNebs as well as prednisone 5 mg daily, consideration for Dupixent has been considered
Peripheral eosinophilia
Chronic heart failure preserved EF.
Aortic stenosis-mild.
Moderate mitral regurgitation.
Chronic kidney disease stage III.
Chronic back pain/L2 compression fracture.
Anxiety/depression.
Morbid obesity.
Obstructive sleep apnea-noncompliance with CPAP
Renal calculi
Shingles 2022
Cholecystectomy 1975. Renal calculi 1975.. Left shoulder reconstruction 1992. Carpal tunnel.
Plan
Patient requires admission for severe COPD exacerbation and respiratory failure
Supplemental oxygen as needed
BiPAP if needed
High flow oxygen if appropriate
Intubate and mechanically ventilate if does not significantly improve-patient currently a full code
Duo nebs 4 times daily
Pulmicort nebulizers
Mucolytic's
Decadron 4 mg IV every 8 hours
Singulair continues
Incentive spirometry
Acapella
Consider vest if difficulties mobilizing secretions
Consider chest physiotherapy if difficulties mobilizing secretions
Check cultures
Empiric antibiotics if acute bacterial bronchitis or acute bacterial lower respiratory tree infection is suspected-observe off antibiotics for now
Consider Procalcitonin level if unsure whether acute respiratory tract bacterial infection exists-caveat may be negative with atypical infections
Monitor leukocytosis
Monitor blood sugars
Insulin supplementation as needed
Analgesia for sciatica per primary team
DVT prophylaxis recommended-currently on heparin
GI prophylaxis recommended if on steroids for prolonged period
Early nutrition
Early mobilization/physical therapy
The patient is followed by Dr. Roque in the outpatient pulmonary office-last saw nurse practitioner-Lisa Riley 05/28/2025 and has an appointment to see Dr. Roque 07/24/2025 at 2 PM
Diagnostic data:
Chest x-ray 07/02/2025-slight prominence in interstitial markings bilaterally
CT chest 05/04/2025: Mild bilateral upper lobe emphysema. Moderately decreased bilateral lung volumes secondary to a moderate exaggerated thoracic kyphosis.� Mild calcific atherosclerotic plaque in the coronary arteries.� Multilevel severe
osteoporotic insufficiency fractures in the thoracic spine with complete collapse of T6 and T8 and moderate loss of height at T9 and T11.� Severe scarring in the left kidney
PFTs 07/02/22: FEV1 1.25L 54%, FVC 2.09L 68%, ratio 60. Post FEV1 1.32L 57%. No significant bronchodilator response. TLC 4.34L 84%, DLCO 50% (moderate obstruction, normal volumes, moderate diffusion impairment)
[place] 05/28/2025: FVC 1.65/57%, FEV1 0.78/36%, ratio 47%, no significant BD response.� Severe obstruction and suggestive of restrictive pattern.
6MWT 05/28/25: At rest, O2 95% on room air, heart rate 74. With ambulation, O2 ousmane 90% on 3 L, max heart rate 90. 5/10 on dyspnea scale. Ambulated 300 feet.
Echocardiogram 04/22/2025-EF 45-50%, mild global hypokinesis, mild mitral stenosis and mild aortic stenosis
Data Reviewed
-
PFT: Report reviewed by me
EKG: Report reviewed by me
Radiology: Image personally visualized and interpreted and Report reviewed by me
CT Scan: Image personally visualized and interpreted and Report reviewed by me
Medical Tests (Nuc Med, Echo etc): Report reviewed by me
Labs: Labs reviewed by me
Old Records: Reviewed
Total Time Spent with Patient (in minutes): 75
--- NOTE | 2025-07-03 12:08 | CM ---
CM reviewed chart, patient seen bedside, initial assessment completed. Patient resides with her daughter and two grandchildren in a two story home, two steps to enter, patient remains on first floor. Patient wears home O2 through [employer], has RW,
cane, WC, rollator, transport chair. Patient is current with [facility], confirmed with liaison Maci, will send CARLOS A referral in [facility]. Patient reports she pays her daughters friend as a caregiver to assist with bathing, few times a week. Patient
PCP Ant Diaz, pharmacy [facility]. CM will continue to follow for all discharge planning needs.
Plan; home with [facility] CARLOS A, caregiver, family support
[facility]
[2025-07-03 15:00] VITALS: BP 140/69
[2025-07-03] MEDS: SINGULAIR 10 MG PO (18:22)
[2025-07-03 20:05] VITALS: BP 143/85
[2025-07-03] MEDS: FLUSH (NSS) 1 FLUSH IV (21:58)
[2025-07-03] MEDS: TOPROL XL 25 MG PO (21:58)
[2025-07-03 23:00] VITALS: BP 133/72
[2025-07-03] MEDS: FLUSH (NSS) 2 FLUSH IV (23:27)
[2025-07-04] VITALS (7 sets, daily range): BP systolic 129–153; BP diastolic 66–71; PULSE 76; O2SAT 94; BMI 29.1
[2025-07-04] MEDS: ROXICODONE 2.5 MG PO (00:55)
[2025-07-04] MEDS: DUONEB 3 ML INH ×5 (07:33→22:52)
[2025-07-04] MEDS: PULMICORT 0.25 MG INH ×2 (07:33→20:05)
--- NOTE | 2025-07-04 07:39 | W.PN.HOSP.TC ---
Today's Communication/Plan
-
Improving.
To continue out patient treatment
Assessment / Plan
Assessment / Plan
#Acute on chronic hypoxic respiratory failure
Patient is currently on oxygen therapy via nasal cannula on was just changed to 3L/min with (was 96% on 4L)- Home baseline
Able to make full sentences
Plan is for discharge, Pulm aware
Request PT for evaluation of Dispo
#COPD with acute exacerbation
CXR/CT: & EKG=Benign
WBC 14.8, Neut 77.8, likely Dexamethasone effect
She is currently on Dexamethasone/ Montelukast 4mg IV q8
#Chronic HFpEF
- Aspirin, folic acid, furosemide and metoprolol
- increase furosemide 20mg daily
#Hypertensive disease
-On metoprolol
-Consider Amlodipine if bp remains elevated
#CKD Stage III
-BUN/Cr (38/1.7), eGFR 31.08
-Monitor BMP
#Anxiety/depression
- continue bupropion and sertraline
#Chronic back pain secondary to L2 compression fracture
- continue oxycodone prn
Code status: full code
DVT prophylaxis: heparin sq
Anticipated Discharge: Today
Subjective/Interval History
-
Date of Service: July 04, 2025
Patient seen
Complains of hip pain, mild
Objective Data
-
Labs:
Laboratory Results
07/04/25
07:19
WBC Pending
Hgb Pending
Hct Pending
Plt Count Pending
Vital Signs:
Vital Signs
Temp Pulse Resp BP Pulse Ox
97.6 F 78 18 129/67 97
07/04/25 03:00 07/04/25 07:37 07/04/25 07:37 07/04/25 03:00 07/04/25 07:38
I&O
07/03/25 07/04/25 07/05/25
06:59 06:59 06:59
Intake Total 480 / 480 1080 / 1080
Balance 480 / 480 1080 / 1080
Review of Systems
-
History Source: Patient
Constitutional: Reports No Symptoms
EENT: Reports No Symptoms Reported
Respiratory: Reports Trouble Breathing and Wheezing
Cardiac: Reports No Symptoms
Abdomen/GI: Reports No Symptoms
Genitourinary: Reports No Symptoms
Musculoskeletal: Reports Other (Pain)
Neuro: Reports Other (Says she thought her grandson was in the room with her)
Physical Exam
-
General: Well Developed, Well Nourished, No Apparent Distress and Comfortable
HEENT: Normocephalic, Atraumatic, Moist Mucous Membranes, No Ptosis, PERRLA and Nose Appears Normal
Respiratory: Wheezes, Rales, Rhonchi and Non Labored Respirations
Cardiac: Regular Rhythm and S1/S2
GI: Soft, Nontender, Nondistended and Normal Bowel Sounds
Musculoskeletal: No Clubbing
Skin: Warm
Neuro: Awake, Alert, Oriented, AO x 3 and No Motor Deficits
Psych: Calm
Data Reviewed
-
Labs: Labs Reviewed by me, Discussed with Physician and Discussed with Patient
[2025-07-04 08:12] LABS: Hematocrit 30.9 % (37.0-47.0); Hemoglobin 9.3 g/dL (12.0-16.0); Mean Corp Hgb Conc. 30.1 g/dL (33.0-37.0); Mean Corpuscular Volume 90.4 fL (81.0-99.0); Platelet Count 388 10^3/uL (130-400); Red Cell Dist. Width 16.0 % (11.5-14.5)
[2025-07-04] MEDS: VITAMIN B1 100 MG PO (08:25)
[2025-07-04] MEDS: DESENEX/MITRAZOL/ZEASORB 1 APPLIC TOPICAL ×2 (08:25→21:35)
[2025-07-04] MEDS: LOW STRENGTH ASPIRIN 81 MG PO (08:25)
[2025-07-04] MEDS: FOLVITE 1 MG PO (08:25)
[2025-07-04] MEDS: DECADRON 4 MG IV ×3 (08:26→23:41)
[2025-07-04] MEDS: OSCAL 500 + D 1000 MG PO (08:26)
[2025-07-04] MEDS: HEPARIN 5000 UNITS SC ×3 (08:26→23:42)
[2025-07-04] MEDS: LASIX 20 MG PO (08:26)
[2025-07-04] MEDS: ZOLOFT 50 MG PO (08:26)
[2025-07-04] MEDS: CLARITIN 10 MG PO (08:26)
[2025-07-04] MEDS: WELLBUTRIN XL (24 hour extended release) 150 MG PO (08:26)
--- NOTE | 2025-07-04 10:20 | W.PN.PUL.V3 ---
Today's Communication / Plan
-
Wean oxygen.
Physical therapy.
Decadron while hospitalized-If discharged, then 40 mg prednisone with slow taper to 10 mg until seen by pulmonary
Assessment
-
75-year-old former smoking female with a history of underlying COPD, chronic hypoxemia, chronic heart failure preserved EF, chronic kidney disease, anxiety, depression, obstructive sleep apnea and obesity complained of severe left-sided sciatica and
increasing shortness of breath and was admitted with COPD exacerbation-pulmonary consulted for shortness of breath 07/03/2025.
Advanced COPD with acute exacerbation
Chronic heart failure preserved EF
Leukocytosis-WBC 13.4
Mild yezuit-bimxswwfmd-rsvqhunydv 10.6
Thrombocytosis
Hyperglycemia
Sciatica
Conditions present prior to admission:
COPD/asthma overlap-currently on 2-3 L oxygen, budesonide and DuoNebs as well as prednisone 5 mg daily, consideration for Dupixent has been considered
Peripheral eosinophilia
Chronic heart failure preserved EF.
Aortic stenosis-mild.
Moderate mitral regurgitation.
Chronic kidney disease stage III.
Chronic back pain/L2 compression fracture.
Anxiety/depression.
Morbid obesity.
Obstructive sleep apnea-noncompliance with CPAP
Renal calculi
Shingles 2022
Cholecystectomy 1975. Renal calculi 1975.. Left shoulder reconstruction 1992. Carpal tunnel.
Plan
Patient requires admission for severe COPD exacerbation and respiratory failure
Supplemental oxygen as needed
BiPAP if needed
Duo nebs 4 times daily
Pulmicort nebulizers
Mucolytic's
Decadron 4 mg IV every 8 hours-changed to prednisone 40 mg with slow taper to 10 mg until seen by pulmonary
Singulair continues
Incentive spirometry
Acapella
Consider vest if difficulties mobilizing secretions
Consider chest physiotherapy if difficulties mobilizing secretions
Check cultures.
Observe off antibiotics
Monitor leukocytosis
Monitor blood sugars
Insulin supplementation as needed
Analgesia for sciatica per primary team
DVT prophylaxis recommended-currently on heparin
GI prophylaxis recommended if on steroids for prolonged period.
Nutrition
Physical therapy.
Patient nearly stable for discharge-states 'I will leave unless I can walk to the door without severe shortness of breath as the last time is discharged hours back within 4 days.'
The patient is followed by Dr. Roque in the outpatient pulmonary office-last saw nurse practitioner-Lisa Riley 05/28/2025 and has an appointment to see Dr. Roque 07/24/2025 at 2 PM
Diagnostic data:
Chest x-ray 07/02/2025-slight prominence in interstitial markings bilaterally
CT chest 05/04/2025: Mild bilateral upper lobe emphysema. Moderately decreased bilateral lung volumes secondary to a moderate exaggerated thoracic kyphosis.� Mild calcific atherosclerotic plaque in the coronary arteries.� Multilevel severe
osteoporotic insufficiency fractures in the thoracic spine with complete collapse of T6 and T8 and moderate loss of height at T9 and T11.� Severe scarring in the left kidney
PFTs 07/02/22: FEV1 1.25L 54%, FVC 2.09L 68%, ratio 60. Post FEV1 1.32L 57%. No significant bronchodilator response. TLC 4.34L 84%, DLCO 50% (moderate obstruction, normal volumes, moderate diffusion impairment)
[place] 05/28/2025: FVC 1.65/57%, FEV1 0.78/36%, ratio 47%, no significant BD response.� Severe obstruction and suggestive of restrictive pattern.
6MWT 05/28/25: At rest, O2 95% on room air, heart rate 74. With ambulation, O2 ousmane 90% on 3 L, max heart rate 90. 5/10 on dyspnea scale. Ambulated 300 feet.
Echocardiogram 04/22/2025-EF 45-50%, mild global hypokinesis, mild mitral stenosis and mild aortic stenosis
Subjective Data
-
Date of Service:
Date of Service: July 04, 2025
Chief Complaint: Pulmonary Follow Up and Dyspnea Follow Up
Subjective:
Feels better, still short of breath with minimal exertion, no chest pain or abdominal pain, sciatica, improved
Review of Systems
General: Other ( per HPI)
Objective Data
Data Reviewed
Vital Signs / I&O:
Vital Signs
Temp Pulse Resp BP Pulse Ox
97.5 F 78 18 153/71 92
07/04/25 07:00 07/04/25 07:37 07/04/25 07:37 07/04/25 07:00 07/04/25 08:25
Intake and Output
07/03/25 07/04/25 07/05/25
06:59 06:59 06:59
Intake Total 480 / 480 1080 / 1080
Balance 480 / 480 1080 / 1080
SaO2: 92
Nasal Cannula flow liters per minute: 3
Physical Exam
General: Respiratory Distress (n) and Comfortable
HEENT: Normocephalic, Anicteric and Moist Mucous Membranes
Cardiovascular: Regular Rhythm and Murmur
Respiratory: Wheeze ( forced expiratory), Crackles ( basilar), Rhonchi (n), Non-Labored Respirations, Accessory Resp Muscle Use (n) and Stridor
GI: Soft, Non Distended and Non Tender
Neurology: Awake, Alert and No Motor Deficits
Skin: Warm, Good Color, Cyanosis (n), Jaundice (n) and Rash (n)
Labs/Micro/Reports
Lab Data
07/04/25 07:19
Microbiology
07/02/25 19:53 Nose MRSA Screen - Final
Staph aureus MRSA
[2025-07-04 10:51] LABS: Blood Urea Nitrogen 46 mg/dl (7-17); Calcium 9.8 mg/dl (8.4-10.2); Carbon Dioxide 27 mmol/L (22-30); Chloride 103 mmol/L (98-107); Estimated Creatinine Clearance 33 ml/min; Glucose 134 mg/dl (70-99); Potassium 5.1 mmol/L (3.5-5.1); Sodium 136 mmol/L (135-145); eGFR 31.08
[2025-07-04] MEDS: DUONEB INH (11:31)
--- NOTE | 2025-07-04 12:29 | CM ---
CM reviewed chart, per PT evaluations, therapy recommending home therapy, patient current with [facility]. Plan remains return home with family, caregivers, and [facility] upon discharge.
Plan; home with family [facility]
[2025-07-04] MEDS: ROXICODONE 5 MG PO (15:12)
[2025-07-04] MEDS: SINGULAIR 10 MG PO (17:01)
[2025-07-04] MEDS: TOPROL XL 25 MG PO (21:37)
[2025-07-04] MEDS: FLUSH (NSS) 2 FLUSH IV (23:42)
[2025-07-05 03:00] VITALS: BP 137/61
[2025-07-05 03:51] VITALS: BMI 29.4
[2025-07-05 04:55] VITALS: BP 140/67
[2025-07-05 04:57] LABS: Glucose - Point of Care 143 mg/dl (70-99)
[2025-07-05 06:20] LABS: Hematocrit 31.0 % (37.0-47.0); Hemoglobin 9.6 g/dL (12.0-16.0); Mean Corp Hgb Conc. 31.0 g/dL (33.0-37.0); Mean Corpuscular Volume 89.3 fL (81.0-99.0); Platelet Count 422 10^3/uL (130-400); Red Cell Dist. Width 16.1 % (11.5-14.5)
[2025-07-05 06:46] LABS: Blood Urea Nitrogen 55 mg/dl (7-17); Calcium 9.4 mg/dl (8.4-10.2); Carbon Dioxide 25 mmol/L (22-30); Chloride 103 mmol/L (98-107); Estimated Creatinine Clearance 33 ml/min; Glucose 140 mg/dl (70-99); Potassium 4.8 mmol/L (3.5-5.1); Sodium 135 mmol/L (135-145); eGFR 31.08
--- NOTE | 2025-07-05 06:47 | PTCARENOTE ---
RN to room for bed alarm sounding. Patient found standing at side of bed. She was confused but able to be easily reoriented. [id number]. VSS. IV access removed. Sm [id number] to left ac dressed with gauze.
[2025-07-05 07:00] VITALS: BP 136/86
--- NOTE | 2025-07-05 07:24 | W.PN.HOSP.TC ---
Today's Communication/Plan
-
Discharge home with home health continue other management at home
Assessment / Plan
Assessment / Plan
#Acute on chronic hypoxic respiratory failure
Patient is currently on oxygen therapy via nasal cannula on 3L/min with averaging >90%- Home baseline
Able to make full sentences
Plan is for discharge,
Take prednisolone 50mg X4 days then, 40mg X4 days then, 20mg X4 days then, 10mg X7 days then,
FU with pulm on 07/24
Pt recommends continued home care
#COPD with acute exacerbation
CXR/CT: & EKG=Benign
WBC 13.9,
Duoneb and Budesonide
#Chronic HFpEF
- Aspirin, folic acid, furosemide and metoprolol
- increase furosemide 20mg daily
#Hypertensive disease
-On metoprolol
-Consider Amlodipine if bp remains elevated
#hyperglycemia
Last A1c 04/21/25 5.4
FBS- 140
#CKD Stage III
-BUN/Cr (55/1.7), eGFR 33
-Stable
# Dispo
Home with home health
Code status: full code
DVT prophylaxis: heparin sq
Anticipated Discharge: Today (Discharge home with home health )
Subjective/Interval History
-
Date of Service: July 05, 2025
Being managed for acute hypoxic respiratory failure secondary to COPD exacerbation
Complains of cough
No new symptoms otherwise
Objective Data
-
Labs:
Laboratory Results
07/05/25
05:43
WBC 13.9 H
Hgb 9.6 L
Hct 31.0 L
Plt Count 422 H
Sodium 135
Potassium 4.8
Chloride 103
Carbon Dioxide 25
BUN 55 H
Creatinine 1.7 H
Glucose 140 H
Calcium 9.4
Vital Signs:
Vital Signs
Temp Pulse Resp BP Pulse Ox
97.7 F 90 20 140/67 96
07/05/25 04:55 07/05/25 04:55 07/05/25 04:55 07/05/25 04:55 07/05/25 04:55
I&O
07/04/25 07/05/25 07/06/25
06:59 06:59 06:59
Intake Total 1080 / 1080 480 / 480
Balance 1080 / 1080 480 / 480
Review of Systems
-
History Source: Patient
Constitutional: Reports No Symptoms
EENT: Reports No Symptoms Reported
Respiratory: Reports Cough and Wheezing; Denies Trouble Breathing (Breathing comfortably)
Cardiac: Reports No Symptoms
Abdomen/GI: Reports No Symptoms
Genitourinary: Reports No Symptoms
Musculoskeletal: Reports Other (Pain)
Neuro: Reports Other (Says she thought her grandson was in the room with her)
Physical Exam
-
General: Well Developed, Well Nourished, No Apparent Distress and Comfortable
HEENT: Normocephalic, Atraumatic, Moist Mucous Membranes, No Ptosis, PERRLA and Nose Appears Normal
Respiratory: Wheezes, Rales (Comparatively more rales than other respiratory sounds), Rhonchi and Non Labored Respirations (On 3L of oxygen)
Cardiac: Regular Rhythm, S1/S2 and Other
GI: Soft, Nontender, Nondistended and Normal Bowel Sounds
Musculoskeletal: No Clubbing
Skin: Warm
Neuro: Awake, Alert, Oriented, AO x 3 and No Motor Deficits
Psych: Calm
Data Reviewed
-
Labs: Labs Reviewed by me, Discussed with Physician and Discussed with Patient
[2025-07-05] MEDS: PULMICORT 0.25 MG INH (07:51)
[2025-07-05] MEDS: DUONEB 3 ML INH ×2 (07:51→11:00)
[2025-07-05 07:56] LABS: Glucose - Point of Care 172 mg/dl (70-99)
[2025-07-05] MEDS: WELLBUTRIN XL (24 hour extended release) 150 MG PO (09:56)
[2025-07-05] MEDS: ZOLOFT 50 MG PO (09:57)
[2025-07-05] MEDS: VITAMIN B1 100 MG PO (09:57)
[2025-07-05] MEDS: CLARITIN 10 MG PO (09:57)
[2025-07-05] MEDS: FOLVITE 1 MG PO (09:58)
[2025-07-05] MEDS: OSCAL 500 + D 1000 MG PO (09:58)
[2025-07-05] MEDS: LOW STRENGTH ASPIRIN 81 MG PO (09:59)
[2025-07-05] MEDS: DECADRON 4 MG IV (10:00)
[2025-07-05] MEDS: HEPARIN 5000 UNITS SC (10:00)
[2025-07-05] MEDS: DESENEX/MITRAZOL/ZEASORB 1 APPLIC TOPICAL (10:00)
[2025-07-05] MEDS: LASIX PO (10:05)
--- NOTE | 2025-07-05 10:35 | W.PN.PUL.V3 ---
Today's Communication / Plan
-
Increase activity.
Assessed discharge supplemental oxygen needs.
Changed to prednisone 50 mg with slow taper.
Outpatient pulmonary follow-up
Pulmonary will sign off-. Please call with questions
Assessment
-
75-year-old former smoking female with a history of underlying COPD, chronic hypoxemia, chronic heart failure preserved EF, chronic kidney disease, anxiety, depression, obstructive sleep apnea and obesity complained of severe left-sided sciatica and
increasing shortness of breath and was admitted with COPD exacerbation-pulmonary consulted for shortness of breath 07/03/2025.
Advanced COPD with acute exacerbation
Chronic heart failure preserved EF
Leukocytosis-WBC 13.4
Mild qwizuo-bqtscfefnv-yttfywwqox 10.6
Thrombocytosis
Hyperglycemia
Sciatica
Conditions present prior to admission:
COPD/asthma overlap-currently on 2-3 L oxygen, budesonide and DuoNebs as well as prednisone 5 mg daily, consideration for Dupixent has been considered
Peripheral eosinophilia
Chronic heart failure preserved EF.
Aortic stenosis-mild.
Moderate mitral regurgitation.
Chronic kidney disease stage III.
Chronic back pain/L2 compression fracture.
Anxiety/depression.
Morbid obesity.
Obstructive sleep apnea-noncompliance with CPAP
Renal calculi
Shingles 2022
Cholecystectomy 1975. Renal calculi 1975.. Left shoulder reconstruction 1992. Carpal tunnel.
Plan
Patient requires admission for severe COPD exacerbation and respiratory failure-still has some wheezing-suspect always has some wheezing
Supplemental oxygen as needed-currently on 3 L-92% saturation
Assessed discharge supplemental oxygen needs
BiPAP if needed-has not needed
Duo nebs 4 times daily
Pulmicort nebulizers
Mucolytic's
Decadron 4 mg IV every 8 hours-changed to prednisone 50 mg with slow taper to 10 mg until seen by pulmonary the outpatient
Singulair continues
Incentive spirometry
Acapella
Consider vest if difficulties mobilizing secretions
Consider chest physiotherapy if difficulties mobilizing secretions
Check cultures.
Observe off antibiotics
Monitor leukocytosis
Monitor blood sugars
Insulin supplementation as needed
Analgesia for sciatica per primary team
DVT prophylaxis recommended-currently on heparin
GI prophylaxis recommended if on steroids for prolonged period.
Nutrition
Physical therapy.
Patient nearly stable for discharge-states 'I will leave unless I can walk to the door without severe shortness of breath as the last time is discharged hours back within 4 days.'
The patient is followed by Dr. Roque in the outpatient pulmonary office-last saw nurse practitioner-Lisa Riley 05/28/2025 and has an appointment to see Dr. Roque 07/24/2025 at 2 PM
Diagnostic data:
Chest x-ray 07/02/2025-slight prominence in interstitial markings bilaterally
CT chest 05/04/2025: Mild bilateral upper lobe emphysema. Moderately decreased bilateral lung volumes secondary to a moderate exaggerated thoracic kyphosis.� Mild calcific atherosclerotic plaque in the coronary arteries.� Multilevel severe
osteoporotic insufficiency fractures in the thoracic spine with complete collapse of T6 and T8 and moderate loss of height at T9 and T11.� Severe scarring in the left kidney
PFTs 07/02/22: FEV1 1.25L 54%, FVC 2.09L 68%, ratio 60. Post FEV1 1.32L 57%. No significant bronchodilator response. TLC 4.34L 84%, DLCO 50% (moderate obstruction, normal volumes, moderate diffusion impairment)
Gino 05/28/2025: FVC 1.65/57%, FEV1 0.78/36%, ratio 47%, no significant BD response.� Severe obstruction and suggestive of restrictive pattern.
6MWT 05/28/25: At rest, O2 95% on room air, heart rate 74. With ambulation, O2 ousmane 90% on 3 L, max heart rate 90. 5/10 on dyspnea scale. Ambulated 300 feet.
Echocardiogram 04/22/2025-EF 45-50%, mild global hypokinesis, mild mitral stenosis and mild aortic stenosis
Subjective Data
-
Date of Service:
Date of Service: July 05, 2025
Chief Complaint: Pulmonary Follow Up and Dyspnea Follow Up
Subjective:
feels better, still has sciatica, still has wheezing and dyspnea on exertion, overall improved, no chest pain, productive cough, or abdominal pain
Review of Systems
General: Other (per HPI)
Objective Data
Data Reviewed
Vital Signs / I&O:
Vital Signs
Temp Pulse Resp BP Pulse Ox
97.6 F 84 20 136/86 90
07/05/25 07:00 07/05/25 07:51 07/05/25 07:51 07/05/25 07:00 07/05/25 07:00
Intake and Output
07/04/25 07/05/25 07/06/25
06:59 06:59 06:59
Intake Total 1080 / 1080 480 / 480
Balance 1080 / 1080 480 / 480
SaO2: 90
Nasal Cannula flow liters per minute: 3
Physical Exam
General: Respiratory Distress (n) and Comfortable
HEENT: Normocephalic, Anicteric and Moist Mucous Membranes
Cardiovascular: Regular Rhythm and Murmur
Respiratory: Wheeze ( forced expiratory), Crackles ( basilar), Rhonchi (n), Non-Labored Respirations, Accessory Resp Muscle Use (n) and Stridor
GI: Soft, Non Distended and Non Tender
Neurology: Awake, Alert and No Motor Deficits
Skin: Warm, Good Color, Cyanosis (n), Jaundice (n) and Rash (n)
Labs/Micro/Reports
Lab Data
07/05/25 05:43
07/05/25 05:43
Microbiology
07/02/25 19:53 Nose MRSA Screen - Final
Staph aureus MRSA
[2025-07-05 11:08] VITALS: BP 147/73
--- NOTE | 2025-07-05 11:44 | CM ---
Addendum entered by Francisca Jewell 07/05/25 14:24:
CM reviewed chart, reviewed with Hospitalist, patient agreeable for d.c today.
Original Note:
CM reviewed chart, patient seen bedside, discussed patient medically stale for discharge. Per patient, will not have family/care in the home today and is concerned about discharging home alone. Patient reports in the past, she has discharged home
and fallen and is concerned that may happen if she is alone. Patient reports she will have family able to bring her home tomorrow. Patient asking to speak with Physician, TT with request. IMM verbally reviewed, provided with copy, placed in chart.
Update to [facility]. CM will continue to follow for all discharge planning needs.
Plan; home with [facility], family to transport
[facility]
--- NOTE | 2025-07-05 14:58 | W.DCSUMMARY ---
Documented by User: Kristine Gunter MD, Resident 07/05/25 16:39
Discharge Summary
Discharge Data
Date of Admission: 07/02/25
Date of Discharge: 07/05/25
-
Pending Results: No
Hospital Course
Discharging Physician : Kristine Gunter MD, Blair Junior DO
Disposition : Home with home care, VN
Primary care physician : Ant Diaz
Principal Discharge diagnosis :
Acute on chronic hypoxic respiratory failure
COPD with acute exacerbation
Chronic HFpEF
CKD Stage III
Anxiety/depression
Chronic back pain secondary to L2 compression fracture
Chronic Discharge diagnosis :
COPD (2-3 liters NC), CHF, Psychiatric (Anxiety, Depression, ) and Other (Spinal stenosis, morbid obesity, Bilateral kidney stones, Ulcers, Sleep apnea, Shingles, )
Hospital Course :
Patient is a 75-year-old female with past medical history significant for chronic hypoxic respiratory insufficiency, COPD, chronic HFpEF, CKD Stage III, and obstructive sleep apnea who presented to [facility] ED 07/02/2025 for evaluation of hypoxia.
Decompensation of her stable state following severe left sciatic pain that increased her shortness of breath. The patient was noted to be hypoxic with a 70% oxygen saturation,
Denies any fever, chills, travel or recent sick contact.
On presentation to the ED, she was in moderate respiratory distress, evidenced by reduced breath sounds, tachypnea and tachycardia. She was also claustrophobic and anxious, which made it difficult to tolerate a face mask.
She was admitted for an Acute on chronic hypoxic respiratory failure due to COPD Exacerbation and was treated as follows
-She required up to 6L NC O2 on admission and was weaned to her baseline 3L NC O2 by discharge.
She was also placed on IV steroids, switched back to PO steroids on 05/05/25. She was treated with Singulair and Claritin. She received DuoNebs. Her leukocytosis was likely steroid-induced. Pulmonary saw the patient in consultation. She was
discharged on a Prednisone taper, budesonide bd duonebs qid. She is to follow up with her rat trapper on out patient basis
Acute on Chronic HFmrEF: Patient was diuresed with IV Lasix. She was then transition to oral Lasix. Her beta-yin was continued
Important imaging findings :
CXR 07/02/2025 Slightly prominent bilaterally. Interstitial markings again seen, cannot differentiate chronic acute superimposed upon chronic interstitial process. Some acute differential diagnostic possibilities would be interstitial edema or
pneumonitis
Discharge Plan
-
Patient Disposition: Home with Home Care
Discharge Diagnosis/Procedures: acute on chronic hypoxic respiratory failure
#COPD with acute exacerbation
chronic HFpEF
CKD Stage III
morbid obesity
Condition: Fair
Diet: Low Fat and 2 Gram Sodium
Activity: As tolerated
Driving Restrictions: As prior to admission
Bathing Restrictions: None
Other Services: VN
Referrals:
Wendy Sher DO [Active, Pulmonary Medicine] - 07/24/25
Ant Diaz DO [Family Provider, Family Practice]
Additional Discharge Medication Instructions: Take prednisolone tablets 50mg for 4 days then, 40mg for 4 days then, 30mg for 4 days then, 20mg for 4 days then, 10mg daily until u see rat trapper on 07/24
Continue to take your other medications as described
Prescriptions:
Continued
melatonin 5 mg tablet
10 mg PO HSPRN PRN (Reason: sleep)
loratadine [Claritin] 10 mg Tablet
10 mg PO DAILY
aspirin 81 mg Tablet,Chewable
81 mg PO DAILY Qty: 30 0RF
metoprolol succinate 25 mg Tablet Extended Release 24 Hr
25 mg PO HS Qty: 30 0RF
oxycodone 5 mg Tablet
5 mg PO Q6HPRN PRN (Reason: severe pain) Qty: 10 0RF
acetaminophen 325 mg Tablet
650 mg PO Q4HPRN PRN (Reason: mild pain or temp >/= 100.4 F) Qty: 0 0RF
sertraline 50 mg Tablet
50 mg PO DAILY 30 Days Qty: 30 0RF
bupropion HCl 150 mg Tablet Extended Release 24 Hr
150 mg PO DAILY Qty: 0 0RF
calcium carbonate-vitamin D3 [Oyster Shell Calcium-Vit D3] 500 mg-5 mcg (200 unit) Tablet
2 tab PO DAILY 30 Days Qty: 60 0RF
folic acid 1 mg Tablet
1 mg PO DAILY Qty: 30 0RF
guaifenesin 100 mg/5 mL Liquid
200 mg PO Q6HPRN PRN (Reason: cough)
budesonide 0.25 mg/2 mL suspension for nebulization
0.25 mg inhalation R QID
thiamine HCl (vitamin B1) 100 mg tablet
100 mg PO DAILY
montelukast 10 mg Tablet
10 mg PO QPM Qty: 30 0RF
furosemide 20 mg Tablet
20 mg PO DAILY Qty: 30 0RF
ipratropium-albuterol 0.5 mg-3 mg(2.5 mg base)/3 mL solution for nebulization
3 ml inhalation Q4HPRN PRN (Reason: shortness of breath or wheezing) Qty: 0 0RF
albuterol sulfate [Ventolin HFA] 90 mcg/actuation HFA aerosol inhaler
2 inh inhalation R Q4HPRN PRN (Reason: shortness of breath or wheezing) Qty: 0 0RF
Changed
prednisone 10 mg tablet
10 mg PO DAILY Qty: 60 0RF
Rx Instructions:
Taper: 50mg daily x 4 days, 40mg daily x 4 days, 30mg daily x 4 days, 20mg daily x 4 days, then 10mg daily
Discharge Orders:
Discharge Patient (As Directed); Ordered 07/05/25
Ordered By: Kristine Gunter
Discharge Date and Time
Discharge Date/Time: 07/05/25 15:33
Print Language: MONGOLIAN

Documented by User: Blair Junior DO 07/06/25 09:46
Discharge Summary
Discharge Data
Date of Admission: 07/02/25
Date of Discharge: 07/05/25
Total time spent discharging patient (in min): 32
Discharge Plan
-
Patient Disposition: Home with Home Care
Discharge Diagnosis/Procedures: acute on chronic hypoxic respiratory failure
#COPD with acute exacerbation
chronic HFpEF
CKD Stage III
morbid obesity
Condition: Fair
Diet: Low Fat and 2 Gram Sodium
Activity: As tolerated
Driving Restrictions: As prior to admission
Bathing Restrictions: None
Other Services: VN
Referrals:
Wendy Sher DO [Active, Pulmonary Medicine] - 07/24/25
Ant Diaz DO [Family Provider, Family Practice]
Additional Discharge Medication Instructions: Take prednisolone tablets 50mg for 4 days then, 40mg for 4 days then, 30mg for 4 days then, 20mg for 4 days then, 10mg daily until u see rat trapper on 07/24
Continue to take your other medications as described
Prescriptions:
Continued
melatonin 5 mg tablet
10 mg PO HSPRN PRN (Reason: sleep)
loratadine [Claritin] 10 mg Tablet
10 mg PO DAILY
aspirin 81 mg Tablet,Chewable
81 mg PO DAILY Qty: 30 0RF
metoprolol succinate 25 mg Tablet Extended Release 24 Hr
25 mg PO HS Qty: 30 0RF
oxycodone 5 mg Tablet
5 mg PO Q6HPRN PRN (Reason: severe pain) Qty: 10 0RF
acetaminophen 325 mg Tablet
650 mg PO Q4HPRN PRN (Reason: mild pain or temp >/= 100.4 F) Qty: 0 0RF
sertraline 50 mg Tablet
50 mg PO DAILY 30 Days Qty: 30 0RF
bupropion HCl 150 mg Tablet Extended Release 24 Hr
150 mg PO DAILY Qty: 0 0RF
calcium carbonate-vitamin D3 [Oyster Shell Calcium-Vit D3] 500 mg-5 mcg (200 unit) Tablet
2 tab PO DAILY 30 Days Qty: 60 0RF
folic acid 1 mg Tablet
1 mg PO DAILY Qty: 30 0RF
guaifenesin 100 mg/5 mL Liquid
200 mg PO Q6HPRN PRN (Reason: cough)
budesonide 0.25 mg/2 mL suspension for nebulization
0.25 mg inhalation R QID
thiamine HCl (vitamin B1) 100 mg tablet
100 mg PO DAILY
montelukast 10 mg Tablet
10 mg PO QPM Qty: 30 0RF
furosemide 20 mg Tablet
20 mg PO DAILY Qty: 30 0RF
ipratropium-albuterol 0.5 mg-3 mg(2.5 mg base)/3 mL solution for nebulization
3 ml inhalation Q4HPRN PRN (Reason: shortness of breath or wheezing) Qty: 0 0RF
albuterol sulfate [Ventolin HFA] 90 mcg/actuation HFA aerosol inhaler
2 inh inhalation R Q4HPRN PRN (Reason: shortness of breath or wheezing) Qty: 0 0RF
Changed
prednisone 10 mg tablet
10 mg PO DAILY Qty: 60 0RF
Rx Instructions:
Taper: 50mg daily x 4 days, 40mg daily x 4 days, 30mg daily x 4 days, 20mg daily x 4 days, then 10mg daily
Discharge Orders:
Discharge Patient (As Directed); Ordered 07/05/25
Ordered By: Kristine Gunter
Discharge Date and Time
Discharge Date/Time: 07/05/25 15:33
Print Language: MONGOLIAN
== END 2025-07-05 15:33 | disposition home health service (06) | DRG 189 ==
LOC: 4 WEST ACU 19:11
PROVIDERS: Nurse Practitioner Family; ADMITTING PHYSICIAN Internal Medicine; ATTENDING PHYSICIAN Internal Medicine; EMERGENCY PHYSICIAN Emergency Medicine; FAMILY PHYSICIAN Family Medicine; OTHER PHYSICIAN Internal Medicine Critical Care Medicine
PROC: 5A0935A Assistance with Respiratory Ventilation, Less than 24 Consecutive Hours, High Flow/Velocity Cannula (ICD-10-PCS; 2025-07-03)
DX: J96.21 Acute and chronic respiratory failure with hypoxia (principal); J44.1 Chronic obstructive pulmonary disease with (acute) exacerbation; I50.32 Chronic diastolic (congestive) heart failure; M48.56XA Collapsed vertebra, not elsewhere classified, lumbar region, initial encounter for fracture; I13.0 Hypertensive heart and chronic kidney disease with heart failure and stage 1 through stage 4 chronic kidney disease, or unspecified chronic kidney disease; E66.01 Morbid (severe) obesity due to excess calories; D75.839 Thrombocytosis, unspecified; I35.0 Nonrheumatic aortic (valve) stenosis; N18.32 Chronic kidney disease, stage 3b; F32.A Depression, unspecified; F41.9 Anxiety disorder, unspecified; G47.33 Obstructive sleep apnea (adult) (pediatric); G89.29 Other chronic pain; I34.0 Nonrheumatic mitral (valve) insufficiency; M54.32 Sciatica, left side; J44.89 Other specified chronic obstructive pulmonary disease; R73.9 Hyperglycemia, unspecified; D63.1 Anemia in chronic kidney disease; F40.240 Claustrophobia; I27.20 Pulmonary hypertension, unspecified; Z87.891 Personal history of nicotine dependence; Z68.29 Body mass index [BMI] 29.0-29.9, adult; Z99.81 Dependence on supplemental oxygen; Z88.0 Allergy status to penicillin; Z91.199 Patient's noncompliance with other medical treatment and regimen due to unspecified reason; Z79.899 Other long term (current) drug therapy; Z79.52 Long term (current) use of systemic steroids; Z79.82 Long term (current) use of aspirin
CPT/HCPCS: 71045; 80048; 80053; 82962; 83880; 84484; 85025; 85027; 85610; 87070; 87147; 93005; 94640; 96374; 97163; 99285

== ENCOUNTER 2025-07-15 02:39 | Observation (INO) | payer MEDICARE, SELFPAY ==
[2025-07-14 18:26] VITALS: BP 140/80
[2025-07-14 20:50] VITALS: BP 139/68
[2025-07-14 21:00] VITALS: BP 138/73
[2025-07-14] MEDS: DUONEB 3 ML INH (21:58)
[2025-07-14] MEDS: DECADRON 10 MG IV (21:58)
[2025-07-14] MEDS: VALIUM 5 MG PO (21:58)
[2025-07-14 22:05] LABS: Hematocrit 31.4 % (37.0-47.0); Hemoglobin 9.9 g/dL (12.0-16.0); Mean Corp Hgb Conc. 31.5 g/dL (33.0-37.0); Mean Corpuscular Volume 87.5 fL (81.0-99.0); Nucleated Red Blood Cells % 0 %; Platelet Count 320 10^3/uL (130-400); Red Cell Dist. Width 15.8 % (11.5-14.5)
[2025-07-14 22:33] LABS: ALT (SGPT) 14 U/L (0-35); AST (SGOT) 14 U/L (14-36); Albumin 3.5 g/dl (3.5-5.0); Alkaline Phosphatase 130 U/L (38-126); Blood Urea Nitrogen 29 mg/dl (7-17); Calcium 9.0 mg/dl (8.4-10.2); Carbon Dioxide 28 mmol/L (22-30); Chloride 106 mmol/L (98-107); Glucose 134 mg/dl (70-99); Potassium 4.9 mmol/L (3.5-5.1); Sodium 137 mmol/L (135-145); Total Protein 6.0 g/dl (6.3-8.2); eGFR 42.88
[2025-07-14 23:00] VITALS: BP 100/85
--- NOTE | 2025-07-14 23:21 | ED.GENMED ---
History of Present Illness
General
Chief Complaint: Breathing Problem
Source: patient
Exam Limitations: none
Time Seen by Provider: 07/14/25 20:53
Nursing documentation reviewed up to this point in time: agreed with
History of Present Illness
History of Present Illness:
75-year-old female presenting to the emergency department today from home for concerns of shortness of breath pulse ox in the 70s on oxygen. Does wear oxygen chronically for COPD and CHF. Has noticed wheezing. Also has back pain does have chronic
denies any specific numbness weakness changes in bowel movements or urination.
Past History
Past History
ED Past Medical History: CHF, COPD (2-3 liters NC), Psychiatric (Anxiety, Depression, ) and Other (Spinal stenosis, morbid obesity, Bilateral kidney stones, Ulcers, Sleep apnea, Shingles, )
ED Past Surgical History: Cholecystectomy, Orthopedic (Left shoulder reconstruction. ), Urological (Kidney surgery) and Other (Fasciotomy for fasciitis with wound VAC of lower back and thigh)
Social History
Tobacco: Former smoker
Alcohol: None
Drug: None
Personal:
Living: alone
Employment: Retired
Family History
Family History: Other (Noncontributory)
Review of Systems
Review of Systems
Allergies reviewed?: Yes
All Other Systems: ROS reviewed and negative except as documented in HPI and ROS
Phy Exam
Physical Exam
Physical Exam:
GENERAL: Alert , in no apparent distress
EYE: pupils equal and reactive
NECK: Supple, no significant adenopathy.
ENT: o/p clr, mmm.
CARDIAC: Regular rate and rhythm .
LUNGS: Diffuse expiratory wheezing
NEUROLOGICAL: Alert and oriented, no focal neuro deficits
SKIN: Warm and dry, skin intact.
MUSCULOSKELETAL: No edema, well perfused.
PSYCH: Normal and appropriate interaction.
Scores
Heart Failure Risk
Heart Failure Risk Score: Not Applicable
Course
Orders/Labs/Results
Orders:
Orders
07/14/25 21:35
Urinalysis Reflex To Culture Urgent
Date Specimen was Collected: 07/15/25
Time Specimen was Collected: 02:21
07/14/25 21:40
Dexamethasone Sod Phosphate [Decadron] 10 mg IV NOW STA
Ipratropium/Albuterol Sulfate [Duoneb] 3 ml INH R NOW ONE
07/14/25 21:42
Diazepam [Valium] 5 mg PO NOW STA
Chest [CR Chest - 2 Views ] Urgent
Comment:
Reason For Exam: sob
07/14/25 21:53
CBC/With Diff [Complete Blood Count/With Diff] Urgent
CMP [Comprehensive Metabolic Panel] Urgent
07/15/25 01:00
Ipratropium/Albuterol Sulfate [Duoneb] 3 ml INH R NOW ONE
07/15/25 01:44
Admit/Transfer Patient As Directed
Co-Sign Provider:
Level of Care: Observation services
Assign to:: Medical/Surgical
Physician / Group: Georgette
Diagnosis: COPD exacerbation
PRN Pain Medication Management As Directed
May give lesser potent ordered pain med per pt: Yes
preference::
Protocol:: Medication orders for pain may be administered in a
manner that supports deferring to patient preference
when the pt is:
- Requesting an ordered lesser potent pain medication.
Least to most potent pain medications are defined
as: acetaminophen < NSAID < tramadol < opioids
(morphine, oxycodone, hydromorphone).
- Requesting a lesser dose of the same medication IF
ORDERED.
- Requesting a less intrusive route of administration
if both routes are prescribed by the provider (PO <
IV).
07/15/25 01:45
Code Status As Directed
Resuscitation Status: Full Code
07/15/25 02:22
Urine Microscopic Reflex Cult Urgent
Urine Culture Urgent
ALLI Source: U
Specimen Description:
Date Specimen was Collected: 07/15/25
Time Specimen was Collected: 02:21
07/15/25 02:46
Acetaminophen [Tylenol] 650 mg PO Q4HPRN PRN
Diazepam [Valium] 5 mg PO BID PRN
Guaifenesin Solution [Robitussin] 200 mg PO Q6HPRN PRN cough
HYDROmorphone [Dilaudid] 0.5 mg IV Q4HPRN PRN
Ipratropium/Albuterol Sulfate [Duoneb] 3 ml INH R Q3HPRN PRN
Melatonin 10 mg PO HSPRN PRN sleep
Oxycodone [Roxicodone] 5 mg PO Q4HPRN PRN
07/15/25 02:46
Activity As Directed
Activity Level: With Assistance
Intake/ Output As Directed
Frequency: Per unit guidelines
Vital Signs As Directed
Frequency: Per unit guidelines
Copd Education [RESP] Routine
O2 Therapy [RESP] Routine
Nasal Cannula Liter Flow: 2 LPM
Titrate/Wean O2 to maintain O2 sat greater than (%): 92
Special Instructions: adjust, if necessary, to avoid hyperoxia in CO2 retainers.
Use High Flow O2 if necessary
Pt Eval And Treat Routine
Activity Level: With Assistance
DX Deep Vein Thrombosis Video Routine
07/15/25 Breakfast
Sodium, 2 Gram
At Your Request: Full Participation
07/15/25 06:36
Basic Metabolic Panel IN AM
07/15/25 08:00
Aspirin Chewable [Low Strength Aspirin] 81 mg PO DAILY
Budesonide [Pulmicort] 0.25 mg INH R QID
Bupropion(24Hr)Extended Releas [WELLBUTRIN XL (24 hour extended release)] 150 mg PO DAILY
FOLic ACID [Folvite] 1 mg PO DAILY
Furosemide [Lasix] 20 mg PO DAILY
Ipratropium/Albuterol Sulfate [Duoneb] 3 ml INH R QID
Loratadine [Claritin] 10 mg PO DAILY
Prednisone [Deltasone] 50 mg PO DAILY
Sertraline HCl [Zoloft] 50 mg PO DAILY
07/15/25 18:00
Enoxaparin Sodium [Lovenox] 40 mg SC QPM
Abnormal Lab Results
07/14/25 07/15/25
21:53 02:22
WBC 11.1 H 10^3/uL
(4.8-10.8)
RBC 3.59 L 10^6/uL
(4.20-5.40)
Hgb 9.9 L g/dL
(12.0-16.0)
Hct 31.4 L %
(37.0-47.0)
MCHC 31.5 L g/dL
(33.0-37.0)
RDW 15.8 H %
(11.5-14.5)
Abs Immat Gran (auto) 0.1 H 10^3/uL
(0-0.05)
Absolute Neuts (auto) 10.3 H 10^3/uL
(1.4-6.5)
Absolute Lymphs (auto) 0.4 L 10^3/uL
(1.2-3.4)
Immature Gran % 0.7 H %
(0-0.5)
Neutrophils % 93.3 H %
(42.2-75.2)
Lymphocytes % 3.8 L %
(20.5-51.1)
BUN 29 H mg/dl
(7-17)
Creatinine 1.3 H mg/dL
(0.6-1.0)
Glucose 134 H mg/dl
(70-99)
Alkaline Phosphatase 130 H U/L
(38-126)
Total Protein 6.0 L g/dl
(6.3-8.2)
Urine Nitrite (Reflex) Positive A
(Negative)
Leukocyte Esterase Rfl 2+ A
(Negative)
Urine WBC (Reflex) 40-50 A /HPF
(0-5)
Urine Bacteria (Reflex) Many A
(Negative)
Urine Glucose 1+ A
(Negative)
Urine Albumin (Reflex) 1+ A
(Neg - Trace)
07/14/25 21:53
07/14/25 21:53
Vital Signs
Initial and Last Documented VS:
Initial Vital Signs
Temp Pulse Resp BP Pulse Ox
98.0 F 109 24 140/80 97
07/14/25 18:26 07/14/25 18:26 07/14/25 18:26 07/14/25 18:26 07/14/25 18:26
Last Documented Vital Signs
Temp Pulse Resp BP Pulse Ox
98.1 F 72 16 155/67 94
07/15/25 07:00 07/15/25 07:36 07/15/25 07:36 07/15/25 07:00 07/15/25 07:36
MDM/Problems Addressed
MDM/Problems Addressed:
75-year-old female presenting to the emergency department today with concerns of shortness of breath and low pulse ox at home today. He is chronically on oxygen and had pulse ox in the 70s with pulse ox in the 70s. Diffuse wheezing on arrival here
started on steroids as well as breathing treatment. Symptoms ongoing despite treatment patient feels she is too short of breath to go plan to admit for monitoring overnight.
*Pulse Oximetry
SaO2: 95
Nasal Cannula flow liters per minute: 4
Patient hypoxic: no (94)
*Critical Care Note
Total Time (30-74mins, 75-104mins- exclusive of procedures): Not Applicable
ED Attending Note
-
Portions of this chart may have been created with voice recognition software.� Occasional wrong word or��sound alike� substitutions may have occurred due to the inherent limitations of voice recognition software.
Discharge Plan
Departure
Patient Disposition: Admit
Date of Disposition: 07/15/25
Time of Disposition: 01:00
Admit to: Telemetry
Admit to doctor: Georgette
Presentation/result/management discussed w/ accepting MD/DO: Hospitalist
Patient with high blood pressure during this ER visit?: No
Condition: Good
Covid-19: Not Applicable
Discharge Problem:
COPD (chronic obstructive pulmonary disease)
Interventions
Interventions:
*Risk Screen - Suicide Last Done: 07/14/25 18:26
*General Assessment Last Done: 07/14/25 18:26
*Neglect/Abuse Screening Last Done: 07/14/25 20:46
*ED- Fall Risk Assessment Last Done: 07/15/25 02:43
*ED COVID-19 Vaccine History Last Done: 07/14/25 20:46
*Nursing Disposition Last Done: 07/15/25 02:43
ED- Cardiac Assessment Last Done: 07/14/25 20:46
ED- Pulmonary Assessment Last Done: 07/14/25 20:46
Discharge Date and Time
Discharge Date/Time: 07/15/25 02:44
[2025-07-15 00:09] VITALS: BP 142/62
[2025-07-15 01:00] VITALS: BP 146/60
[2025-07-15] MEDS: DUONEB 3 ML INH ×5 (01:04→20:13)
--- NOTE | 2025-07-15 01:30 | HPS.HSE ---
Family Physician
-
Family Physician: Ant Diaz
Chief Complaint
-
Shortness of breath
History of Present Illness
This is a 75-year-old female with past medical history of COPD on 3 L home O2 and on chronic prednisone now on 10 mg, CHF with decreased EF, mild to moderate aortic and mitral stenosis, obstructive sleep apnea not on CPAP, obesity presenting to the
emergency department with shortness of breath and back pain.
Patient was recently admitted and discharged on July 05 for COPD exacerbation. She was discharged on inhalers and prednisone taper. Patient however stated that she was unable to fill her prescriptions up until a few days ago and she did miss
several days of the prednisone taper. She states that she just started taking it again today. She reported that she has been having flank (right side) and back pain which appears to be exacerbation of her chronic back pain for which she is on
chronic oxycodone. The pain that was becoming unbearable but she came to the emergency department due to being found hypoxic by home nurse. Patient said over the last few days she has been having increasing rhinorrhea which is typically her out of
the onset of COPD exacerbation. She reports postnasal drip and a nonproductive cough. She then became more short of breath and was found to be hypoxic on her 2 L home O2 to 70%. She reports left-sided ankle edema which is unchanged from prior.
She denies any acute weight gain. She has had no fevers or chills. She does not know of any sick contacts.
When I observed in the emergency department post neb treatment she was satting 97% on 3 L, she was afebrile with a temp of 98, blood pressure was stable at 142/60 with a pulse rate of 76 and a respiratory rate of 20.
CBC was unchanged from prior and unremarkable. Electrolytes BUN and creatinine were also ranging from prior and unremarkable. Bicarb was 28 without significant retention. Chest x-ray shows no acute infiltrates and was similar to prior.
Medical History
Past Medical History
Past Medical History: Reports Other
Additional Past Medical History:
chronic hypoxic respiratory insufficiency
COPD
chronic HFpEF
valvular heart disease: mild aortic stenosis, mild/moderate mitral regurg
CKD Stage III
chronic back pain secondary to L2 compression fracture
anxiety/depression
morbid obesity
obstructive sleep apnea
Past Surgical History: Reports Other
Additional Past Surgical History:
Cholecystectomy
Left Shoulder Reconstruction
Fasciotomy
Social History
Tobacco: Former Smoker
Alcohol: None
Drug: None
Living: With Family
Employment: Retired
Family History
Family History: Not pertinent
Allergies / Home Medications
Allergies reflects when Allergies were last updated in [facility].
Home Medications with original date entered in [facility]
Allergy/Medication List:
Allergies
Allergy/AdvReac Type Severity Reaction Status Date / Time
ampicillin Allergy Hives Verified 07/02/25 15:40
coconut Allergy Hives Verified 07/02/25 15:40
mustard Allergy Hives Verified 07/02/25 15:40
Home Medications
melatonin 5 mg tablet 10 mg PO HSPRN PRN sleep 06/22/24
loratadine 10 mg tablet (Claritin) 10 mg PO DAILY Allergies 10/08/24
aspirin 81 mg chewable tablet 81 mg PO DAILY #30 tabs 10/22/24
metoprolol succinate 25 mg tablet,extended release 24 hr 25 mg PO HS #30 tabs 10/22/24
oxycodone 5 mg tablet 5 mg PO Q6HPRN PRN severe pain #10 tabs 10/22/24
acetaminophen 325 mg tablet 650 mg (2 x 325 mg) PO Q4HPRN PRN mild pain or temp >/= 100.4 F #0 tabs 11/15/24
bupropion HCl 150 mg 24 hr tablet, extended release 150 mg PO DAILY #0 tabs 11/15/24
calcium 500 mg (as carbonate)-vitamin D3 5 mcg (200 unit) tablet (Oyster Shell Calcium-Vitamin D3) 2 tab PO DAILY 30 days #60 tabs 11/15/24
folic acid 1 mg tablet 1 mg PO DAILY #30 tabs 11/15/24
sertraline 50 mg tablet 50 mg PO DAILY 30 days #30 tabs 11/15/24
budesonide 0.25 mg/2 mL suspension for nebulization 0.25 mg inhalation R QID Lung/Breathing Issues 04/29/25
guaifenesin 100 mg/5 mL oral liquid 200 mg PO Q6HPRN PRN cough 04/29/25
thiamine HCl (vitamin B1) 100 mg tablet 100 mg PO DAILY Supplement 04/29/25
albuterol sulfate 90 mcg/actuation aerosol inhaler (Ventolin HFA) 2 inh inhalation R Q4HPRN PRN shortness of breath or wheezing #0 grams 05/07/25
furosemide 20 mg tablet 20 mg PO DAILY #30 tabs 05/07/25
ipratropium 0.5 mg-albuterol 3 mg (2.5 mg base)/3 mL nebulization soln 3 ml inhalation Q4HPRN PRN shortness of breath or wheezing #0 mL 05/07/25
montelukast 10 mg tablet 10 mg PO QPM #30 tabs 05/07/25
prednisone 10 mg tablet 2.5 mg PO DAILY 07/02/25
Review of Systems
-
History Source: Patient
Constitutional: Reports No Symptoms
EENT: Reports No Symptoms
Respiratory: Reports Trouble Breathing
Cardiac: Reports No Symptoms
Abdomen/GI: Reports No Symptoms
: Reports No Symptoms
Musculoskeletal: Reports Joint Pain, Muscle Pain and Other (back spasm)
Skin: Reports No Symptoms
Neurological: Reports No Symptoms
Endocrine: Reports No Symptoms
Hematologic/Lymphatic: Reports No Symptoms
Psych: Reports No Symptoms
Physical Exam
Vital Signs
Vital Signs
Temp Pulse Resp BP Pulse Ox
98.0 F 75 23 146/60 97
07/14/25 18:26 07/15/25 01:00 07/15/25 01:00 07/15/25 01:00 07/15/25 01:00
Physical Exam
General: Well Developed, Well Nourished and No Apparent Distress
HEENT: NormoCephalic, Moist mucous membranes, Atraumatic and Oxygen
Respiratory: Clear, Non Labored Respirations, Decreased Breath Sounds and Other (no conversation dyspnea)
Cardiac: S1/S2 and Regular Rhythm; No Murmur or Rub
Breast: Deferred by me
GI: Soft, Non Tender, Non Distended and Normal Bowel Sounds; No Organomegaly
Rectal: Deferred by Provider
Genito-urinary: Deferred by me
Musculoskeletal: No Clubbing, No Cyanosis and No Edema
Skin: No Rash
Neuro: AO x 3 and Nonfocal/grossly intact
Hematologic/Lymphatic: No Lymphadenopathy
Psych: Calm
Laboratory Results
-
07/14/25 21:53
07/14/25 21:53
Laboratory Results
Total Bilirubin 0.4 mg/dl (0.2-1.3) 07/14/25 21:53
AST 14 U/L (14-36) 07/14/25 21:53
ALT 14 U/L (0-35) 07/14/25 21:53
Alkaline Phosphatase 130 U/L (38-126) H 07/14/25 21:53
Data Reviewed
-
Diagnostic Radiology: Image Personally Visualized and interpreted
Lab Data: Labs Reviewed by me
Old Records: Reviewed
Impression/Plan
-
IMPRESSION:
75-year-old with past medical history significant for COPD on home O2 and chronic prednisone, CHF with reduced EF, presenting to the emergency department with a runny nose, shortness of breath and hypoxia on 2 L home O2. She was recently admitted
and discharged for COPD exacerbation. She was discharged on prednisone taper and budesonide. Unfortunately patient did not start the medication because she did not receive her medicines up until about 2 days ago and she says she has not really
started taking them either. Suspect disease recommendations show persistence of her prior COPD exacerbation. She shows no signs of an acute infection. She shows no signs of acute volume overload. She is currently satting 97% at rest on 3 L
without any tachypnea. She is not conversationally dyspneic. Auscultation anteriorly reveals no wheezes or crackles. She is complaining mostly of back and flank pain which was improved after a dose of Valium.
PLAN:
COPD -persistence of her ongoing COPD exacerbation from her last discharge is suspected. She shows no signs of acute infection. Cough production is unchanged. She is currently on baseline oxygen requirement but unfortunately was unable to
initiate the prednisone taper that she was discharged on due to pharmacy changes.
- admit to med/surg observation
- decadron given in ED, continue prednisone 50 mg po daily and intiate taper if patient symptoms remain stable.
- DuoNebs RTC
- Albuterol every 3 hours as needed
- Continue budesonide
Obstructive sleep apnea�noncompliant with CPAP does not wear, no signs of acute retention at this time
-Oxygen
- Monitor serum CO2
Anxiety/depression
- Continue sertraline
- Continue Wellbutrin
CHF - No evidence of acute volume overload
- continue furosemide 10 mg daily
DVT PPX - lovenox sq
Code status - full code
[2025-07-15 02:30] LABS: Urine Character Slightly Cloudy (Clear)
[2025-07-15 02:38] LABS: Urine Red Blood Cell 0-2 /HPF (0-2); Urine Squamous Cell 26-30 /LPF (Few); Urine White Cell 40-50 /HPF (0-5)
--- NOTE | 2025-07-15 02:42 | EDRN ---
When taking off ECG lead, skin tear under the lead occurred to mid chest--areas cleaned and non adherent dressing placed. Multiple areas of skin tears noted throughout arms from previous admissions per patient.
[2025-07-15] MEDS: ROXICODONE 5 MG PO ×3 (03:46→20:40)
[2025-07-15 03:58] VITALS: BP 149/70
--- NOTE | 2025-07-15 03:59 | PTCARENOTE ---
Pt arrived to floor from ED. VSS. AAOx3. Pt is on O2 at 3L. Report pain to L buttock radiating across back down left leg. Transferred to bed from stretcher. Oriented to room. Call moyer within reach.
[2025-07-15 07:00] VITALS: BP 155/67
[2025-07-15] MEDS: PULMICORT 0.25 MG INH ×4 (07:31→20:13)
[2025-07-15 08:30] LABS: Blood Urea Nitrogen 30 mg/dl (7-17); Calcium 9.1 mg/dl (8.4-10.2); Carbon Dioxide 27 mmol/L (22-30); Chloride 105 mmol/L (98-107); Glucose 148 mg/dl (70-99); Potassium 4.7 mmol/L (3.5-5.1); Sodium 136 mmol/L (135-145); eGFR 42.88
[2025-07-15] MEDS: WELLBUTRIN XL (24 hour extended release) 150 MG PO (08:32)
[2025-07-15] MEDS: LOW STRENGTH ASPIRIN 81 MG PO (08:32)
[2025-07-15] MEDS: CLARITIN 10 MG PO (08:32)
[2025-07-15] MEDS: ZOLOFT 50 MG PO (08:32)
[2025-07-15] MEDS: FOLVITE 1 MG PO (08:33)
[2025-07-15] MEDS: DELTASONE 50 MG PO (08:33)
[2025-07-15] MEDS: LASIX 20 MG PO (08:33)
--- NOTE | 2025-07-15 12:03 | W.PN.HOSP.TC ---
Today's Communication/Plan
-
See A/P
Assessment / Plan
Assessment / Plan
#COPD progression of last exacerbation
- Saturating now at baseline of 3L/min of O2
- Prednisone 50 mg po daily and taper if patient symptoms remain stable.
- DuoNebs RTC
- Albuterol every 3 hours as needed
- Continue budesonide
- Pulmo consult
#Obstructive sleep apnea
-Oxygen
- Monitor serum CO2
#Anxiety/depression
- Continue sertraline
- Continue Wellbutrin
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
#CHF
- No evidence of acute volume overload
- continue furosemide 10 mg daily
#Low back pain
#Sciatica
-PT/OT
#L LLE Pain & tenderness
-Exanibed at bedside, tender.
-Re-examined later, not tender
-Do LLE uss
DVT PPX - lovenox sq
Code status - full code
Anticipated Discharge: Within 24 hours
Subjective/Interval History
-
Date of Service: July 15, 2025
This is a 75-year-old female with past medical history of COPD on 3 L home O2 admitted due to worsening dyspnea and back pain
She was recently discharged with prednisone taper for her acute exacerbation of COPD history was not able to get.
She also endorses worsening rhinorrhea which is typical for acute exacerbation of COPD.
C/O Hip pain/ LLE Pain.
She is concerned of the stress her medical conditions places on her family and the difficulty she faces
Objective Data
-
Labs:
Laboratory Results
07/15/25
06:36
Sodium 136
Potassium 4.7
Chloride 105
Carbon Dioxide 27
BUN 30 H
Creatinine 1.3 H
Glucose 148 H
Calcium 9.1
Vital Signs:
Vital Signs
Temp Pulse Resp BP Pulse Ox
98.1 F 74 16 155/67 92
07/15/25 07:00 07/15/25 11:23 07/15/25 11:23 07/15/25 07:00 07/15/25 11:23
Review of Systems
-
History Source: Patient
Constitutional: Reports No Symptoms
EENT: Reports No Symptoms Reported
Respiratory: Reports Cough, Trouble Breathing and Wheezing
Cardiac: Reports No Symptoms
Abdomen/GI: Reports No Symptoms
Genitourinary: Reports Incontinence
Musculoskeletal: Reports Other (Pain)
Physical Exam
-
General: Well Developed and Other (Obese)
HEENT: Normocephalic, Atraumatic, Moist Mucous Membranes, No Ptosis, PERRLA and Nose Appears Normal
Respiratory: Rales, Decreased Breath Sounds and Other
Cardiac: Regular Rhythm and S1/S2
GI: Soft and Nontender
Musculoskeletal: No Clubbing, Edema, Left Lower Extrem ( Trace pedal edema on the left leg, tender) and Other
Skin: Warm
Neuro: Awake, Alert, Oriented, AO x 3 and No Motor Deficits
Psych: Calm
--- NOTE | 2025-07-15 12:35 | W.PN.UPDATE ---
Update Note
Progress Note Update
I saw and evaluated the patient. I reviewed the resident�s note and agree with findings and plan as documented in the resident�s note.
Current complaint is left-sided sciatica pain.
Gen: NAD, AAOx3, appears chronically ill
Eyes: EOMI, PERRLA, no scleral icterus.
Neck: supple.
CV: RRR, +S1/S2, no m/r/g.
Resp: Distant breath sounds, CTAB, no rales, wheezes, or rhonchi.
Abd: +BS, soft, NT, ND
Skin: No rashes.
Neuro: CN 2-12 intact, non-focal.
Psych: Normal mood and affect.
CXR: No acute cardiopulmonary process.
Chronic hypoxemic respiratory failure due to chronic COPD:
-I would not qualify this as an acute COPD exacerbation as the patient did not take her steroid taper as she was supposed to. This is more like a prolongation of her prior exacerbation.
-Oxygen weaned down to 3L NC O2 (baseline)
-Continue prednisone 50 mg daily, likely taper to 40 mg tomorrow
-cont Duonebs/Pulmicort
-c/s pulm
L sciatica pain:
-underlying chronic pain with chronic opioid use with dependence
-start neurontin
-PT/OT
Other problems:
JUAN ANTONIO: noncompliant with CPAP
Anxiety/depression: Cont sertraline/Wellbutrin
Chronic HFmrEF: daily wts, I/Os, cont Lasix
Considering the patient's frequency of admissions, end-stage COPD, and chronic pain, it is reasonable to consult palliative care.
FULL/Lovenox
--- NOTE | 2025-07-15 14:36 | CON.PUL ---
Addendum entered and electronically signed by Wendy Sher DO 07/15/25 14:53:
Daughter states she has been very bedbound following last admission and wont move
It would likely be beneficial for her to enter SNF if she qualifies
PT/OT following
Original Note:
Consultation
Consultation Request
Date/Time Consultation Requested: 07/15/25
Date/Time Consultation Performed: 07/15/25
Performing Provider: Christos
Reason for Consultation: COPD
Medical History
-
History of Present Illness:
Patient is a 75-year-old female with previous history of COPD on 3 L chronically, chronic prednisone 10 mg, chronic congestive heart failure, mild to moderate aortic and mitral stenosis, JUAN ANTONIO not on CPAP presenting to ER with shortness of breath
and back pain, admitted 07/15/2025. She was recently discharged for AECOPD on 07/05/2025 with a plan for continuous prednisone. She was unable to fill her prescriptions a few days ago and missed 2 days of prednisone. She had resumed taking it 1 day
prior to admission, but notes that what actually brought her to the hospital was sciatic nerve pain that was unbearable. She did notice at 1 point that her saturations were in the 70s requiring her to increase her O2 to 5 L briefly. She is
maintained on 3 L nasal cannula but does not feel her baseline shortness of breath has been back to normal.
Past Medical History
Past Medical History: Other (see list below)
Social History
Tobacco: Non-smoker
Alcohol: None
Drug: None
Family History
Family History: Reviewed & Not Pertinent
Allergies / Home Medications
Allergies
Allergy/AdvReac Type Severity Reaction Status Date / Time
ampicillin Allergy Hives Verified 07/14/25 18:27
coconut Allergy Hives Verified 07/14/25 18:27
mustard Allergy Hives Verified 07/14/25 18:27
Home Medications
�Medication �Instructions �Recorded �Confirmed �Last Taken �Type
melatonin 5 mg tablet 10 mg PO HSPRN PRN sleep 06/22/24 07/14/25 Unknown History
loratadine 10 mg tablet (Claritin) 10 mg PO DAILY Allergies 10/08/24 07/14/25 07/14/25 History
aspirin 81 mg chewable tablet 81 mg PO DAILY #30 tabs 10/22/24 07/14/25 07/14/25 Rx
oxycodone 5 mg tablet 5 mg PO Q6HPRN PRN severe pain #10 10/22/24 07/14/25 07/14/25 Rx
tabs
bupropion HCl 150 mg 24 hr tablet, 150 mg PO DAILY #0 tabs 11/15/24 07/14/25 07/14/25 Rx
extended release
calcium 500 mg (as 2 tab PO DAILY 30 days #60 tabs 11/15/24 07/14/25 07/14/25 Rx
carbonate)-vitamin D3 5 mcg (200
unit) tablet (Oyster Shell
Calcium-Vitamin D3)
folic acid 1 mg tablet 1 mg PO DAILY #30 tabs 11/15/24 07/14/25 07/14/25 Rx
sertraline 50 mg tablet 50 mg PO DAILY 30 days #30 tabs 11/15/24 07/14/25 07/14/25 Rx
budesonide 0.25 mg/2 mL suspension 0.25 mg inhalation R QID 04/29/25 07/14/25 04/29/25 History
for nebulization Lung/Breathing Issues
guaifenesin 100 mg/5 mL oral liquid 200 mg PO Q6HPRN PRN cough 04/29/25 07/14/25 07/14/25 History
albuterol sulfate 90 mcg/actuation 2 inh inhalation R Q4HPRN PRN 05/07/25 07/14/25 Unknown Rx
aerosol inhaler (Ventolin HFA) shortness of breath or wheezing #0
grams
furosemide 20 mg tablet 20 mg PO DAILY #30 tabs 05/07/25 07/14/25 07/14/25 Rx
ipratropium 0.5 mg-albuterol 3 mg 3 ml inhalation Q4HPRN PRN 05/07/25 07/14/25 07/14/25 Rx
(2.5 mg base)/3 mL nebulization shortness of breath or wheezing #0
soln mL
prednisone 10 mg tablet 10 mg PO DAILY #60 tabs 07/05/25 07/14/25 07/14/25 Rx
Review of Systems
-
History Source: Patient
All other systems: Negative unless noted
Vitals / Labs / Diagnostic Testing
Vital Signs
Temp Pulse Resp BP Pulse Ox
98.1 F 74 16 155/67 92
07/15/25 07:00 07/15/25 11:23 07/15/25 11:23 07/15/25 07:00 07/15/25 11:23
Lab Data
07/14/25 21:53
07/15/25 06:36
Diagnostic Testing:
Physical Exam
-
HEENT: Normocephalic, Anicteric and Moist Mucous Membranes
Cardiovascular: S1/S2 and Regular Rhythm
Respiratory: Clear and Non-Labored Respirations
GI: Soft, Non Distended and Non Tender
Neurology: Awake, Alert, Oriented and No Motor Deficits
Skin: Warm, Dry and Good Color
General: Comfortable and Other (NAD)
Assessment
-
Patient is a 75-year-old female with previous history of COPD on 3 L chronically, chronic prednisone 10 mg, chronic congestive heart failure, mild to moderate aortic and mitral stenosis, JUAN ANTONIO not on CPAP presenting to ER with shortness of breath
and back pain, admitted 07/15/2025. She was recently discharged for AECOPD on 07/05/2025 with a plan for continuous prednisone. She was unable to fill her prescriptions a few days ago and missed 2 days of prednisone. She had resumed taking it 1 day
prior to admission, but notes that what actually brought her to the hospital was sciatic nerve pain that was unbearable. She did notice at 1 point that her saturations were in the 70s requiring her to increase her O2 to 5 L briefly. She is
maintained on 3 L nasal cannula but does not feel her baseline shortness of breath has been back to normal.
Advanced COPD with mild exacerbation
Sciatic nerve pain
Acute on chronic SOB
Chronic heart failure preserved EF
Hyperglycemia
Conditions present prior to admission:
COPD/asthma overlap-currently on 2-3 L oxygen, budesonide and DuoNebs as well as prednisone 5 mg daily, consideration for Dupixent has been considered
Peripheral eosinophilia
Chronic heart failure preserved EF.
Aortic stenosis-mild.
Moderate mitral regurgitation.
Chronic kidney disease stage III.
Chronic back pain/L2 compression fracture.
Anxiety/depression.
Morbid obesity.
Obstructive sleep apnea-noncompliance with CPAP
Renal calculi
Shingles 2022
Cholecystectomy 1975. Renal calculi 1975.. Left shoulder reconstruction 1992. Carpal tunnel.
Plan
Patient requires admission for severe COPD exacerbation and respiratory failure-seems triggered by sciatic nerve pain
Supplemental oxygen as needed-currently on 3 L-92% saturation--this is baseline
She has acute on chronic SOB complaints, had run out of prednisone at home
Resumed on prednisone 50mg
We had discussed Ohtuvaryre but she has not yet started this
Can consider daliresp vs azithro MWF as she has had many readmissions
CXR 07/14/25 similar, no acute process
Resume home meds
Duo nebs 4 times daily
Pulmicort nebulizers
Mucolytic's
Singulair continues
Incentive spirometry
Acapella
Check proBNP to r/o CHF
Resume home lasix
Observe off antibiotics
Check PCT
Monitor blood sugars
Insulin supplementation as needed
Analgesia for sciatica per primary team
DVT prophylaxis recommended-currently on heparin
GI prophylaxis recommended if on steroids for prolonged period.
Nutrition
Physical therapy.
Has next appt at office w/ Dr. Roque 07/24/2025 at 2 PM
I encouraged her to keep this appt
Daughter updated on the phone
Will follow
Diagnostic data:
Chest x-ray 07/02/2025-slight prominence in interstitial markings bilaterally
CT chest 05/04/2025: Mild bilateral upper lobe emphysema. Moderately decreased bilateral lung volumes secondary to a moderate exaggerated thoracic kyphosis.� Mild calcific atherosclerotic plaque in the coronary arteries.� Multilevel severe
osteoporotic insufficiency fractures in the thoracic spine with complete collapse of T6 and T8 and moderate loss of height at T9 and T11.� Severe scarring in the left kidney
PFTs 07/02/22: FEV1 1.25L 54%, FVC 2.09L 68%, ratio 60. Post FEV1 1.32L 57%. No significant bronchodilator response. TLC 4.34L 84%, DLCO 50% (moderate obstruction, normal volumes, moderate diffusion impairment)
Gino 05/28/2025: FVC 1.65/57%, FEV1 0.78/36%, ratio 47%, no significant BD response.� Severe obstruction and suggestive of restrictive pattern.
6MWT 05/28/25: At rest, O2 95% on room air, heart rate 74. With ambulation, O2 ousmane 90% on 3 L, max heart rate 90. 5/10 on dyspnea scale. Ambulated 300 feet.
Echocardiogram 04/22/2025-EF 45-50%, mild global hypokinesis, mild mitral stenosis and mild aortic stenosis
Total time spent on this consultation/encounter __75__ minutes which includes review of history, physical exam, medications, laboratory data, personal review of imaging, extensive review of outpatient records, discussion with care team and
respiratory therapy.
[2025-07-15 15:00] VITALS: BP 145/73
[2025-07-15 16:08] LABS: Procalcitonin < 0.05 ng/ml (0.0-0.25)
[2025-07-15] MEDS: LOVENOX 40 MG SC (17:16)
[2025-07-15] MEDS: NEURONTIN 100 MG PO ×2 (17:16→20:41)
[2025-07-15 23:00] VITALS: BP 138/70
[2025-07-16 05:50] VITALS: BMI 29.2
[2025-07-16] MEDS: ROXICODONE 5 MG PO ×4 (05:51→21:30)
[2025-07-16 07:00] VITALS: BP 93/62
[2025-07-16] MEDS: DUONEB 3 ML INH ×4 (08:03→19:22)
[2025-07-16] MEDS: PULMICORT 0.25 MG INH ×3 (08:04→15:10)
[2025-07-16 08:48] LABS: Hematocrit 31.2 % (37.0-47.0); Hemoglobin 9.4 g/dL (12.0-16.0); Mean Corp Hgb Conc. 30.1 g/dL (33.0-37.0); Mean Corpuscular Volume 89.7 fL (81.0-99.0); Platelet Count 298 10^3/uL (130-400); Red Cell Dist. Width 16.0 % (11.5-14.5)
[2025-07-16] MEDS: LOW STRENGTH ASPIRIN 81 MG PO (08:50)
[2025-07-16] MEDS: WELLBUTRIN XL (24 hour extended release) 150 MG PO (08:50)
[2025-07-16] MEDS: CLARITIN 10 MG PO (08:50)
[2025-07-16] MEDS: ZOLOFT 50 MG PO (08:50)
[2025-07-16] MEDS: FOLVITE 1 MG PO (08:50)
[2025-07-16] MEDS: DELTASONE 50 MG PO (08:50)
[2025-07-16] MEDS: NEURONTIN 100 MG PO ×3 (08:50→21:30)
[2025-07-16] MEDS: LASIX 20 MG PO (08:51)
[2025-07-16] MEDS: TYLENOL 650 MG PO (08:56)
[2025-07-16 09:52] LABS: Blood Urea Nitrogen 37 mg/dl (7-17); Calcium 9.2 mg/dl (8.4-10.2); Carbon Dioxide 31 mmol/L (22-30); Chloride 103 mmol/L (98-107); Estimated Creatinine Clearance 40 ml/min; Glucose 84 mg/dl (70-99); Potassium 4.7 mmol/L (3.5-5.1); Sodium 138 mmol/L (135-145); eGFR 39.23
--- NOTE | 2025-07-16 10:09 | W.PN.PUL3 ---
Today's Communication / Plan
-
Continue nebulizer therapy
Prednisone taper-decrease by 10 mg every 72 hours to 10 mg baseline
Analgesia for sciatica pain per primary team
Continue oxygen supplementation-currently at baseline
No additional recommendations
Sign off
Assessment
-
Patient is a 75-year-old female with previous history of COPD on 3 L chronically, chronic prednisone 10 mg, chronic congestive heart failure, mild to moderate aortic and mitral stenosis, JUAN ANTONOI not on CPAP presenting to ER with shortness of breath
and back pain, admitted 07/15/2025. She was recently discharged for AECOPD on 07/05/2025 with a plan for continuous prednisone. She was unable to fill her prescriptions a few days ago and missed 2 days of prednisone. She had resumed taking it 1 day
prior to admission, but notes that what actually brought her to the hospital was sciatic nerve pain that was unbearable. She did notice at 1 point that her saturations were in the 70s requiring her to increase her O2 to 5 L briefly. She is
maintained on 3 L nasal cannula but does not feel her baseline shortness of breath has been back to normal.
Advanced COPD with mild exacerbation
Sciatic nerve pain
Acute on chronic SOB
Chronic heart failure preserved EF
Hyperglycemia
Conditions present prior to admission:
COPD/asthma overlap-currently on 2-3 L oxygen, budesonide and DuoNebs as well as prednisone 5 mg daily, consideration for Dupixent has been considered
Peripheral eosinophilia
Chronic heart failure preserved EF.
Aortic stenosis-mild.
Moderate mitral regurgitation.
Chronic kidney disease stage III.
Chronic back pain/L2 compression fracture.
Anxiety/depression.
Morbid obesity.
Obstructive sleep apnea-noncompliance with CPAP
Renal calculi
Shingles 2022
Cholecystectomy 1975. Renal calculi 1975.. Left shoulder reconstruction 1992. Carpal tunnel.
Plan
From the pulmonary perspective: Overnight clinically improved.
Baseline respiratory symptoms.
Supplemental oxygen as needed-currently on 3 L- baseline oxygen requirements.
-
Suspect symptoms were triggered by pain-agree that unlikely new acute COPD exacerbation.
CXR 07/14/25 similar, no acute process
-
Continue with current regiment which is her home regimen.
DuoNebs, Pulmicort.
Continue prednisone taper 40 mg and decrease by 10 mg every 72 hours to baseline of 10 mg.
-
Can consider daliresp vs azithro MWF as she has had many readmissions-will defer to Dr. Roque in the outpatient setting.
Mucolytic's
Singulair continues
Incentive spirometry
Acapella-encourage.
Moderately elevated proBNP: No evidence for volume overload on exam.
Continue home diuretics.
No indication for antibiotics.
Analgesia for sciatica per primary team.
DVT prophylaxis recommended-currently on heparin
GI prophylaxis recommended if on steroids for prolonged period.
Has next appt at office w/ Dr. Roque 07/24/2025 at 2 PM
I encouraged her to keep this appt
-
From the pulmonary perspective no additional recommendations.
With multiple serious comorbidities, goals of care should be discussed in the outpatient setting. Currently she is full code.
Hopefully discharge soon.
Sign off, please call with questions.
Diagnostic data:
Chest x-ray 07/02/2025-slight prominence in interstitial markings bilaterally
CT chest 05/04/2025: Mild bilateral upper lobe emphysema. Moderately decreased bilateral lung volumes secondary to a moderate exaggerated thoracic kyphosis.� Mild calcific atherosclerotic plaque in the coronary arteries.� Multilevel severe
osteoporotic insufficiency fractures in the thoracic spine with complete collapse of T6 and T8 and moderate loss of height at T9 and T11.� Severe scarring in the left kidney
PFTs 07/02/22: FEV1 1.25L 54%, FVC 2.09L 68%, ratio 60. Post FEV1 1.32L 57%. No significant bronchodilator response. TLC 4.34L 84%, DLCO 50% (moderate obstruction, normal volumes, moderate diffusion impairment)
[place] 05/28/2025: FVC 1.65/57%, FEV1 0.78/36%, ratio 47%, no significant BD response.� Severe obstruction and suggestive of restrictive pattern.
6MWT 05/28/25: At rest, O2 95% on room air, heart rate 74. With ambulation, O2 ousmane 90% on 3 L, max heart rate 90. 5/10 on dyspnea scale. Ambulated 300 feet.
Echocardiogram 04/22/2025-EF 45-50%, mild global hypokinesis, mild mitral stenosis and mild aortic stenosis
Subjective Data
-
Date of Service:
Date of Service: July 16, 2025
Chief Complaint: Pulmonary Follow Up (Acute exacerbation of COPD)
Review of Systems
Cardiopulmonary: Dyspnea, Cough and Wheezing
GI: Abdominal Pain (n) and Nausea
Objective Data
Data Reviewed
Vital Signs / I&O / Oxygen:
Vital Signs
Temp Pulse Resp BP Pulse Ox
97.6 F 76 18 134/72 95
07/16/25 07:00 07/16/25 08:51 07/16/25 08:06 07/16/25 08:51 07/16/25 08:06
Intake and Output
07/15/25 07/16/25 07/17/25
06:59 06:59 06:59
Intake Total 240 / 240
Balance 240 / 240
SaO2 95
Nasal Cannula flow liters per 3
minute
Physical Exam
General: Comfortable
HEENT: Normocephalic
Cardiovascular: S1-S2 and Regular Rhythm
Respiratory: Wheeze and Non-Labored Respirations
GI: Soft and Non Distended
Neurology: Awake, Alert and No Motor Deficits
Skin: Warm
Labs/Micro/Reports
Lab Data
07/16/25 08:36
07/16/25 08:36
Microbiology
07/15/25 02:22 Urine Urine Culture - Preliminary
Escherichia coli
07/15/25 05:05 Nose MRSA Screen - Final
Staph aureus MRSA
--- NOTE | 2025-07-16 10:12 | W.PN.UPDATE ---
Addendum entered and electronically signed by Juan Beasley MD 07/16/25 15:27:
As per discussion with case management, the patient will not be leaving today due to issues verifying insurance.
Original Note:
Update Note
Progress Note Update
I saw and evaluated the patient. I reviewed the resident�s note and agree with findings and plan as documented in the resident�s note.
No new complaints
Gen: NAD, AAOx3, appears chronically ill
Eyes: EOMI, PERRLA, no scleral icterus.
Neck: supple.
CV: Remains RRR, +S1/S2, no m/r/g.
Resp: Remains with distant breath sounds, CTAB, no rales, wheezes, or rhonchi.
Abd: +BS, soft, NT, ND
Skin: No rashes.
Neuro: CN 2-12 intact, non-focal.
Psych: Normal mood and affect.
CXR: No acute cardiopulmonary process.
Chronic hypoxemic respiratory failure due to chronic COPD:
-I would not qualify this as an acute COPD exacerbation as the patient did not take her steroid taper as she was supposed to. This is more like a prolongation of her prior exacerbation. Note that I disagree with the statement from Dr. Sher's note
on which states 'Patient requires admission for severe COPD exacerbation and respiratory failure-seems triggered by sciatic nerve pain.'
-Oxygen weaned down to 3L NC O2 (baseline)
-Continue prednisone at 40mg daily, taper on d/c
-cont Duonebs/Pulmicort
-pulm following
L sciatica pain:
-underlying chronic pain with chronic opioid use with dependence
-neurontin started, dose can be increased in 3 to 4 days
-PT/OT
Other problems:
JUAN ANTONIO: noncompliant with CPAP
Anxiety/depression: Cont sertraline/Wellbutrin
Chronic HFmrEF: daily wts, I/Os, cont Lasix
FULL/Lovenox
Medically cleared for discharge. Case management aware.
--- NOTE | 2025-07-16 10:58 | W.PN.HOSP.TC ---
Today's Communication/Plan
-
Acute episode has now resolved. Pain management and PT. Consider for an in-patient setting
Assessment / Plan
Assessment / Plan
This is a 75-year-old female with past medical history of COPD on 3 L home O2 admitted due to worsening dyspnea and back pain
She was recently discharged with prednisone taper for her acute exacerbation of COPD history was not able to get.
She also endorses worsening rhinorrhea which is typical for acute exacerbation of COPD.
C/O Hip pain radiating down her left leg.
#Chronic hypoxemic respiratory failure due to chronic COPD
- Pulmo consult appreciated
- Unlikely new process, acute episode likely due to pain
-Saturating now at baseline of 3L/min of O2
- Prednisone 50 mg po daily and taper if patient symptoms remain stable.
- DuoNebs RTC
- Albuterol every 3 hours as needed
- Continue budesonide
#Obstructive sleep apnea
-Oxygen
- Monitor serum CO2
#Anxiety/depression
- Continue sertraline
- Continue Wellbutrin
#CHF
- No evidence of acute volume overload
- continue furosemide 10 mg daily
#Low back pain
#Sciatica
-PT/OT
-Commenced on neurontin yesterday
-Palliative care
#L LLE Pain & tenderness
-No evidence of deep venous thrombosis in the visualized bilateral lower extremities as described above.
DVT PPX - lovenox sq
Code status - full code
Anticipated Discharge: Today
Subjective/Interval History
-
Date of Service: July 16, 2025
Patient seen lying comfortably in bed
No current problems
Complains of severe back pain now reduced s/p pain medication
Objective Data
-
Labs:
Laboratory Results
07/16/25
08:36
WBC 22.2 H
Hgb 9.4 L
Hct 31.2 L
Plt Count 298
Sodium 138
Potassium 4.7
Chloride 103
Carbon Dioxide 31 H
BUN 37 H
Creatinine 1.4 H
Glucose 84
Calcium 9.2
Vital Signs:
Vital Signs
Temp Pulse Resp BP Pulse Ox
97.6 F 76 18 134/72 95
07/16/25 07:00 07/16/25 08:51 07/16/25 08:06 07/16/25 08:51 07/16/25 08:06
I&O
07/15/25 07/16/25 07/17/25
06:59 06:59 06:59
Intake Total 240 / 240
Balance 240 / 240
Review of Systems
-
History Source: Patient
Constitutional: Reports No Symptoms
EENT: Reports No Symptoms Reported
Respiratory: Reports No Symptoms
Cardiac: Reports No Symptoms
Abdomen/GI: Reports No Symptoms
Genitourinary: Reports Incontinence
Musculoskeletal: Reports Other (Pain)
Physical Exam
-
General: Well Developed and Well Nourished
HEENT: Moist Mucous Membranes
Respiratory: Clear to Auscultation and Other (Breathing comfortably on 3 L of oxygen)
Cardiac: Regular Rhythm and S1/S2
GI: Nontender
Musculoskeletal: Edema, Left Lower Extrem (Mild tenderness above the left ankle)
--- NOTE | 2025-07-16 11:18 | PTCARENOTE ---
Patient positive for MRSA--changed from modified contact to contact precautions.
--- NOTE | 2025-07-16 11:19 | CM ---
Patient seen bedside, initial assessment completed. Patient is a 75-year-old female with past medical history of COPD on 3 L home O2 and on chronic prednisone now on 10 mg, CHF with decreased EF, mild to moderate aortic and mitral stenosis,
obstructive sleep apnea not on CPAP, obesity presenting to the emergency department with shortness of breath and back pain.
Patient resides w/ her daughter and 2 grandsons in a 2STH, 2 steps to enter from the outside. Patient is independent w/ the use of a RW, cane, has w/c, transport chair, rollator, neb machine, and home O2 through [employer]. Patient stated her RW's wheel
recently broke off and have to order a new one. Patient has additional shower chair and a raised toilet seat. Patient stated she was at [facility] twice in the past, prefers to return as she wants rehab at d/c. Also was at [facility] in
the past as well. Current w/ [facility].
Address, points of contact and insurance verified
PCP: Ant Diaz
Pharmacy: [facility]
Patient admitted obs status. CROWDER verbally reviewed, copy provided, copy on chart
Patient stated she would like to go to [facility] for rehab as she's been there twice before. CM explained patient's obs status and will have to see if patient has a qualifying inpatient stay or eligible for MSSP waiver.
Referral sent to [facility] in [facility]. Spoke w/ Elvi/[facility] director, made Elvi aware that patient is obs but had an inpatient admission stay from 07/02-07/05. Elvi stated she will confirm if this qualifies patient and call CM back
Plan: [facility] if patient has a qualifying inpatient stay
--- NOTE | 2025-07-16 11:24 | W.CON.PAL ---
Consultation
-
Date/Time Consultation Requested: 07/16
Date/Time Consultation Performed: 07/17
Performing Provider: Kamilah ROCHA
Reason for Consult: Goals of Care Discussion
Primary Diagnosis: COPD
Reason for Admission
Illness Course/HPI
75 year old F with end stage COPD with multiple admissions,CHF, chronic back pain admitted with SOB and back pain. Per patient reports, pulse ox was in the 70s and nothing was touching her back pain. Follows with our team as an outpatient.
Recent admission for COPD exacerbation and was discharged on prednisone taper but had issues with pharmacy so was not taken correctly. Seen by pulm again this admission with plans to start Ohtuvaryre as an outpatient but not yet started.
Seen at bedside this AM - feeling better respiratory and pain mendieta but with significant weakness and can hardly walk. She is hoping to get to [facility] for rehab. We have had multiple disucssions with patient as an outpatient about hospice - she is
not interested and goals are restorative at this time. Also difficult because she lives with daughter who does not want her at her home on hospice.
We will continue to follow her as an outpatient after rehab and continue with discussions. Goals currently are for SNF.
Pain & Symptom Assessment
Patient Symptoms
Patient Symptoms: Pain
[place] Symptom Scale 0=none, 10=worst
Pain: 4
Objective Data
-
Objective Data:
Vital Signs
Temp Pulse Resp BP Pulse Ox
97.6 F 76 18 134/72 95
07/16/25 07:00 07/16/25 08:51 07/16/25 08:06 07/16/25 08:51 07/16/25 08:06
Laboratory Results
07/16/25 08:36
07/16/25 08:36
Total Protein 6.0 g/dl (6.3-8.2) L 07/14/25 21:53
Albumin 3.5 g/dl (3.5-5.0) 07/14/25 21:53
Urine Color Yellow 07/15/25 02:22
Urine Clarity Slightly cloudy (Clear) 07/15/25 02:22
Urine pH 5.0 (5.0-9.0) 07/15/25 02:22
Ur Specific Somis 1.020 (<1.030) 07/15/25 02:22
Urine Ketones Negative (Negative) 07/15/25 02:22
Urine Bilirubin Negative (Negative) 07/15/25 02:22
Palliative Performance Scale
Palliative Performance Scale:
PPS Level Ambulation Activity & Evidence of Disease Self Care Intake Conscious Level
100% Full Normal Activity & Work; Full Intake Full
No Evidence of Disease
90% Full Normal Activity & Work; Full Normal Full
Some Evidence of Disease
80% Full Normal Activity with Effort Full Normal or Full
Some Evidence of Disease Reduced
70% Reduced Unable Normal Job/Work Full Normal or Full
Significant Disease Reduced
60% Reduced Unable Hobby/Housework Occasional Normal or Full or Confusion
Significant Disease Assistance Reduced
50% Mainly Sit/Lie Unable to do Any Work Considerable Normal or Full or Confusion
Extensive Disease Assistance Req'd Reduced
40% Mainly in Bed Unable to do Most Activity Mainly Assistance Normal or Full or Drowsy;
Extensive Disease Reduced +/- Confusion
30% Totally Bed Unable to do Any Activity Total Care Normal or Full or Drowsy;
Bound Extensive Disease Reduced +/- Confusion
20% Totally Bed Bound Unable to do Any Activity Total Care Minimal to Full or Drowsy;
Extensive Disease Sips +/- Confusion
10% Totally Bed Bound Unable to do Any Activity Total Care Mouth Care Drowsy or Coma;
Extensive Disease Only +/- Confusion
0%
PPS Score Level:
Physical Exam
-
General: No Apparent Distress and Appears Chronically Ill
HEENT: Normocephalic
Respiratory: Decreased Breath Sounds
Cardiac: Regular Rhythm
GI: Soft
Skin: Warm and Ecchymosis
Neuro: AO x 3
Assessment / Plan
-
Assessment/Plan:
75 year old F with end stage COPD and CHF with multiple admissions
- not interested in hospice, wants SNF
- follows palliative as outpatient - many conversations about hospice. Not interested at this time. Will continue to follow
Care Reviewed
Data Reviewed
Medical Tests: I reviewed
Reviewed with: Patient and Physician
[2025-07-16 11:46] VITALS: BP 145/69; PULSE 80; O2SAT 93; O2SAT 94
[2025-07-16 15:41] VITALS: BP 138/68
[2025-07-16] MEDS: LOVENOX 40 MG SC (17:43)
[2025-07-16 23:00] VITALS: BP 121/61
[2025-07-17 06:00] VITALS: BMI 28.9
[2025-07-17] MEDS: ROXICODONE 5 MG PO ×2 (06:28→16:57)
[2025-07-17 07:30] VITALS: BP 108/66
[2025-07-17] MEDS: DUONEB 3 ML INH ×3 (07:37→15:11)
[2025-07-17] MEDS: PULMICORT 0.25 MG INH (07:37)
[2025-07-17 08:26] LABS: Hematocrit 31.2 % (37.0-47.0); Hemoglobin 9.5 g/dL (12.0-16.0); Mean Corp Hgb Conc. 30.4 g/dL (33.0-37.0); Mean Corpuscular Volume 91.8 fL (81.0-99.0); Platelet Count 313 10^3/uL (130-400); Red Cell Dist. Width 16.0 % (11.5-14.5)
[2025-07-17] MEDS: ZOLOFT 50 MG PO (08:52)
[2025-07-17] MEDS: FOLVITE 1 MG PO (08:52)
[2025-07-17] MEDS: DELTASONE 40 MG PO (08:52)
[2025-07-17] MEDS: LASIX 20 MG PO (08:52)
[2025-07-17] MEDS: LOW STRENGTH ASPIRIN 81 MG PO (08:52)
[2025-07-17] MEDS: CLARITIN 10 MG PO (08:52)
[2025-07-17] MEDS: NEURONTIN 100 MG PO ×2 (08:52→16:57)
[2025-07-17] MEDS: WELLBUTRIN XL (24 hour extended release) 150 MG PO (08:52)
[2025-07-17 08:56] LABS: Blood Urea Nitrogen 40 mg/dl (7-17); Calcium 9.0 mg/dl (8.4-10.2); Carbon Dioxide 34 mmol/L (22-30); Chloride 102 mmol/L (98-107); Estimated Creatinine Clearance 37 ml/min; Glucose 79 mg/dl (70-99); Potassium 4.6 mmol/L (3.5-5.1); Sodium 138 mmol/L (135-145); eGFR 36.12
--- NOTE | 2025-07-17 11:06 | W.PN.HOSP.TC ---
Today's Communication/Plan
-
To be discharged to SNF today for physical therapy/rehab
Follow-up on outpatient with pulmonology
Assessment / Plan
Assessment / Plan
This is a 75-year-old female with past medical history of COPD on 3 L home O2 admitted due to worsening dyspnea and back pain
She was recently discharged with prednisone taper for her acute exacerbation of COPD history was not able to get.
She also endorses worsening rhinorrhea which is typical for acute exacerbation of COPD.
C/O Hip pain radiating down her left leg.
#Chronic hypoxemic respiratory failure due to chronic COPD
- Pulmo consult appreciated
- Unlikely new process, acute episode likely due to pain
-Saturating now at baseline of 3L/min of O2
- Prednisone 40 mg taper decrease by 10 mg every 72 hours to baseline of 10 mg
- DuoNebs RTC
- Albuterol every 3 hours as needed
- Continue budesonide
#Obstructive sleep apnea
-Oxygen
- Monitor serum CO2
#Anxiety/depression
- Continue sertraline
- Continue Wellbutrin
#CHF
- No evidence of acute volume overload
- continue furosemide 10 mg daily
#Low back pain
#Sciatica
-PT/OT
-Commenced on neurontin yesterday
-Palliative care
#L LLE Pain & tenderness
-No evidence of deep venous thrombosis in the visualized bilateral lower extremities as described above.
Patient's lab work shows leukocytosis this is likely due to prednisone induced demargination.
Her urinalysis grew E. coli with microflora it is likely contaminant. Also noted the patient is incontinent.
Nasal swab grew MRSA this has been ongoing for over a year by chart and it is likely colonization at this point.
Patient remains asymptomatic and antibiotics will be deferred to prevent resistance.
DVT PPX - lovenox sq
Code status - full code
Dispo; care home facility
Anticipated Discharge: Today
Subjective/Interval History
-
Date of Service: July 17, 2025
Patient seen midline in bed complains of some pain on her left hip and leg says to be manageable.
Objective Data
-
Labs:
Laboratory Results
07/17/25
07:38
WBC 17.2 H
Hgb 9.5 L
Hct 31.2 L
Plt Count 313
Sodium 138
Potassium 4.6
Chloride 102
Carbon Dioxide 34 H
BUN 40 H
Creatinine 1.5 H
Glucose 79
Calcium 9.0
Vital Signs:
Vital Signs
Temp Pulse Resp BP Pulse Ox
97.6 F 77 20 108/66 98
07/17/25 07:30 07/17/25 08:52 07/17/25 07:35 07/17/25 08:52 07/17/25 07:35
I&O
07/16/25 07/17/25 07/18/25
06:59 06:59 06:59
Intake Total 240 / 240 1200 / 1200
Balance 240 / 240 1200 / 1200
Review of Systems
-
History Source: Patient
Constitutional: Reports No Symptoms
EENT: Reports No Symptoms Reported
Respiratory: Reports No Symptoms
Cardiac: Reports No Symptoms
Abdomen/GI: Reports No Symptoms
Genitourinary: Reports Incontinence
Musculoskeletal: Reports Other (Pain)
Physical Exam
-
General: Well Developed and Well Nourished
HEENT: Moist Mucous Membranes
Respiratory: Other (Breathing comfortably on 3 L of oxygen. Some wheezing and few crackles heard at the back)
Cardiac: Regular Rhythm and S1/S2
GI: Nontender
Musculoskeletal: Edema, Left Lower Extrem (Mild tenderness above the left ankle)
Skin: Warm and Dry
Neuro: Awake, Alert, Oriented and AO x 3
Psych: Calm
Data Reviewed
-
Labs: Labs Reviewed by me, Discussed with Physician and Discussed with Patient
--- NOTE | 2025-07-17 11:12 | CM ---
Addendum entered by Nelly Marquez 07/17/25 11:55:
Received call from Luci, patient can admit today. SNF is asking for documentation that patient had a recent admission, CM offered H&P that has documentation of patient admitting and discharging on 07/05. Luci will confirm w/ SNF if that is
feasible, besides that, patient can still admit today.
Luci requested H&P to be attached in [facility]
Updated patient bedside
[facility]
Report: [phone]

Addendum entered by Nelly Marquez 07/17/25 11:21:
Patient requested to speak w/ CM. Patient stated she was mistaken and [facility] is not where she wants to go and it is another facility in [place] she was referring to, [facility]. Patient prefers [facility], not [facility]
Referral sent to [facility] in [facility]. CM called Luci/lesli regarding a bed today. Luci will review and call CM back once she is able to confirm if there's a bed today.
Original Note:
[facility] unable to verify patient's Medicare insurance so unable to accept. Additional referral to [facility] sent, spoke w/ Dee Dee/lesli who accepted patient for today. Dee Dee was able to verify patient's insurance and confirmed
patient has skilled days remaining w/ Medicare.
Updated hospitalist and physician
Updated patient bedside, stated her daughter will transport to SNF
--- NOTE | 2025-07-17 11:15 | W.PN.UPDATE ---
Update Note
Progress Note Update
I saw and evaluated the patient. I reviewed the resident�s note and agree with findings and plan as documented in the resident�s note.
No new complaints. States shortness of breath and left sciatica pain have improved since yesterday.
Gen: Remains NAD, AAOx3, appears chronically ill
Eyes: EOMI, PERRLA, no scleral icterus.
Neck: supple.
CV: Continues to remain RRR, +S1/S2, no m/r/g.
Resp: Continues to remain with distant breath sounds, CTAB, no rales, wheezes, or rhonchi.
Abd: +BS, soft, NT, ND
Skin: No rashes.
Neuro: CN 2-12 intact, non-focal.
Psych: Normal mood and affect.
CXR: No acute cardiopulmonary process.
Chronic hypoxemic respiratory failure due to chronic COPD:
-I would not qualify this as an acute COPD exacerbation as the patient did not take her steroid taper as she was supposed to. This is more like a prolongation of her prior exacerbation. Note that I disagree with the statement from Dr. Sher's note
on which states 'Patient requires admission for severe COPD exacerbation and respiratory failure-seems triggered by sciatic nerve pain.'
-Oxygen weaned down to 3L NC O2 (baseline)
-Continue prednisone at 40mg daily, taper on d/c
-cont Duonebs/Pulmicort
-pulm following
L sciatica pain:
-underlying chronic pain with chronic opioid use with dependence
-neurontin started, dose can be increased in 2 days
-PT/OT
Other problems:
JUAN ANTONIO: noncompliant with CPAP
Anxiety/depression: Cont sertraline/Wellbutrin
Chronic HFmrEF: daily wts, I/Os, cont Lasix
FULL/Lovenox
Medically cleared for discharge. Case management aware.
Total time spent on d/c = 31 min. This included today's physical exam, progress note, review of laboratory and diagnostic data, preparation of discharge documents and prescriptions, and discussions about the pt's hospital course and discharge plan
with the patient and other clinical specialist medical device involved in the patient's care.
[2025-07-17 15:20] VITALS: BP 123/61
--- NOTE | 2025-07-17 15:21 | W.DCSUMMARY ---
Discharge Summary
Discharge Data
Date of Admission: 07/15/25
Date of Discharge: 07/17/25
-
Pending Results: No
Hospital Course
Discharging Physician : Kristine Gunter MD, Juan Beasley MD
Disposition : SNF
Primary care physician : Ant Diaz
Principal Discharge diagnosis : Chronic Obstructive Pulmonary disease
Lumbar Radiculopathy
Chronic hypoxemic respiratory failure due to chronic chronic obstructive pulmonary disease
Lumbar radiculopathy; Sciatica
Heart failure with preserved ejection fraction
Chronic kidney disease stage IIIa
Chronic Discharge diagnosis :
Psychiatric (Anxiety, Depression, )
Spinal stenosis,
Morbid obesity,
Bilateral kidney stones,
Ulcers
Sleep apnea
Shingles
75-year-old female presents on account of
Hospital Course :
75-year-old female who presented presenting to the [facility] ED on 07/14/2025 from home for concerns of shortness of breath pulse ox in the 70s on oxygen. Does wear oxygen chronically for COPD and CHF. Has noticed wheezing. She endorses
worsening/severe back pain that radiates down her left leg with associated mild pedal edema. She does have chronic back pain denies any specific numbness weakness changes in bowel movements or urination.
On evaluation at the ED she was in no apparent distress, tachypneic with diffuse wheezing. Other parameters were unchanged from her last admission
She received steroids, nebulizer treatment and was admitted observation for continued respiratory treatment and physical therapy.
While on admission she was seen in consultation with pulmonology, and palliative medicine. Her condition was thought to be brought on by severe pain from her sciatica in the setting of end-stage COPD and heart failure. She continues she received
respiratory treatment.
In light of her ambulatory dysfunction and comorbidities, she she did speak with palliative care however opted for skilled rehab and was transferred for continued physical therapy and care.
Important imaging findings :
CR Chest - 2 Views 07/14/2025
No acute cardiopulmonary process.
US Periph Venous LOWER Ext Aj 07/16/2025
No evidence of deep venous thrombosis in the visualized bilateral lower extremities as described above
Discharge Plan
-
Patient Disposition: Residential/SNF
Discharge Diagnosis/Procedures: Chronic hypoxemic respiratory failure due to chronic chronic obstructive pulmonary disease
Lumbar radiculopathy; Sciatica
Heart failure with preserved ejection fraction
Chronic kidney disease stage IIIa
Condition: Fair
Diet: Low Cholesterol and 2 Gram Sodium
Activity: As tolerated
Driving Restrictions: Not until seen by your Dr
Bathing Restrictions: None
Other Services: VN and PT
Referrals:
Wendy Sher DO [Active, Pulmonary Medicine] - 07/24/25 2:00 pm
Referral Note: Fu with your pulmonogist in a weeks time
Ant Diaz DO [Family Provider, Family Practice] - in less than 1 week
Referral Note: Follow-up with your PCP
Prescriptions:
New
gabapentin 100 mg Capsule
100 mg PO TID Qty: 24 0RF
Continued
melatonin 5 mg tablet
10 mg PO HSPRN PRN (Reason: sleep)
loratadine [Claritin] 10 mg Tablet
10 mg PO DAILY
oxycodone 5 mg Tablet
5 mg PO Q6HPRN PRN (Reason: severe pain) Qty: 10 0RF
guaifenesin 100 mg/5 mL Liquid
200 mg PO Q6HPRN PRN (Reason: cough)
budesonide 0.25 mg/2 mL suspension for nebulization
0.25 mg inhalation R QID
ipratropium-albuterol 0.5 mg-3 mg(2.5 mg base)/3 mL solution for nebulization
3 ml inhalation Q4HPRN PRN (Reason: shortness of breath or wheezing) Qty: 0 0RF
albuterol sulfate [Ventolin HFA] 90 mcg/actuation HFA aerosol inhaler
2 inh inhalation R Q4HPRN PRN (Reason: shortness of breath or wheezing) Qty: 0 0RF
aspirin 81 mg Tablet,Chewable
81 mg PO DAILY Qty: 30 0RF
folic acid 1 mg Tablet
1 mg PO DAILY Qty: 30 0RF
furosemide 20 mg Tablet
20 mg PO DAILY Qty: 30 0RF
sertraline 50 mg Tablet
50 mg PO DAILY 30 Days Qty: 30 0RF
bupropion HCl 150 mg Tablet Extended Release 24 Hr
150 mg PO DAILY Qty: 0 0RF
calcium carbonate-vitamin D3 [Oyster Shell Calcium-Vit D3] 500 mg-5 mcg (200 unit) Tablet
2 tab PO DAILY 30 Days Qty: 60 0RF
prednisone 10 mg tablet
10 mg PO DAILY Qty: 30 0RF
Rx Instructions:
Taper: 40mg daily x 3 days, 30mg daily x 3 days, 20mg daily x 3 days, then 10mg daily
Discharge Orders:
Discharge Patient (As Directed); Ordered 07/17/25
Ordered By: Juan Beasley
Discharge Date and Time
Print Language: ECUADOREAN
--- NOTE | 2025-07-17 15:57 | PTCARENOTE ---
[facility] RN [facility] Left VM with call back number. Awaiting return phone call.
[2025-07-17] MEDS: LOVENOX SC (17:28)
--- NOTE | 2025-07-17 19:09 | PTCARENOTE ---
This RN got in contact with rehab. Report given. All questions answered.
== END 2025-07-17 18:35 ==
LOC: 4 WEST ACU 02:39
PROVIDERS: Physician Assistant; ADMITTING PHYSICIAN Internal Medicine; ATTENDING PHYSICIAN Internal Medicine; CONSULT PHYSICIAN Internal Medicine; EMERGENCY PHYSICIAN Emergency Medicine; FAMILY PHYSICIAN Family Medicine; OTHER PHYSICIAN Nurse Practitioner Gerontology
DX: J44.9 Chronic obstructive pulmonary disease, unspecified (principal); R53.1 Weakness; J96.11 Chronic respiratory failure with hypoxia; F11.20 Opioid dependence, uncomplicated; M54.9 Dorsalgia, unspecified; G89.29 Other chronic pain; F41.9 Anxiety disorder, unspecified; M79.89 Other specified soft tissue disorders; R05.9 Cough, unspecified; G47.33 Obstructive sleep apnea (adult) (pediatric); R73.9 Hyperglycemia, unspecified; Z51.5 Encounter for palliative care; I50.32 Chronic diastolic (congestive) heart failure; M51.17 Intervertebral disc disorders with radiculopathy, lumbosacral region; R32 Unspecified urinary incontinence; M80.08XA Age-related osteoporosis with current pathological fracture, vertebra(e), initial encounter for fracture; N18.31 Chronic kidney disease, stage 3a; F32.A Depression, unspecified; I08.0 Rheumatic disorders of both mitral and aortic valves; Z91.199 Patient's noncompliance with other medical treatment and regimen due to unspecified reason; Z87.442 Personal history of urinary calculi; Z99.81 Dependence on supplemental oxygen; Z87.891 Personal history of nicotine dependence; Z90.49 Acquired absence of other specified parts of digestive tract; Z88.0 Allergy status to penicillin; Z91.018 Allergy to other foods; Z79.82 Long term (current) use of aspirin; Z79.51 Long term (current) use of inhaled steroids; Z79.52 Long term (current) use of systemic steroids; Z79.899 Other long term (current) drug therapy
CPT/HCPCS: 71046; 80048; 80053; 81003; 81015; 83880; 84145; 85025; 85027; 87070; 87077; 87086; 87147; 87186; 93970; 94640; 96374; 97163; 97167; 99285; G0378

== ENCOUNTER 2025-08-19 20:00 | Inpatient (IN) | payer MEDICARE, SELFPAY ==
[2025-08-19] VITALS (7 sets, daily range): BP systolic 91–157; BP diastolic 50–72; BMI 29.7; BMI 29.3
--- NOTE | 2025-08-19 17:41 | ED.GENMED ---
History of Present Illness
General
Chief Complaint: Breathing Problem
Source: patient
Exam Limitations: none
Time Seen by Provider: 08/19/25 17:26
History of Present Illness
History of Present Illness:
See MDM
Past History
Past History
ED Past Medical History: CHF, COPD (2-3 liters NC), Psychiatric (Anxiety, Depression, ) and Other (Spinal stenosis, morbid obesity, Bilateral kidney stones, Ulcers, Sleep apnea, Shingles, )
ED Past Surgical History: Cholecystectomy, Orthopedic (Left shoulder reconstruction. ), Urological (Kidney surgery) and Other (Fasciotomy for fasciitis with wound VAC of lower back and thigh)
Social History
Tobacco: Former smoker
Alcohol: None
Drug: None
Personal:
Living: alone
Employment: Retired
Family History
Family History: Other (Noncontributory)
Phy Exam
Physical Exam
Physical Exam:
See MDM
Scores
Heart Failure Risk
Heart Failure Risk Score: Not Applicable
Course
Orders/Labs/Results
Orders:
Orders
08/19/25 17:37
Electrocardiogram (*1) Urgent
Reason for Study: Shortness of Breath
EKG- Treatment ONCE
Ipratropium/Albuterol Sulfate [Duoneb] 3 ml INH R NOW ONE
08/19/25 17:39
CR Chest Portable - 1 View Urgent
Comment:
Reason For Exam: SOB
Reason Study Needs to be Portable: Patient Unstable
08/19/25 17:40
COVID-19 Antigen Urgent
Source: Nasal Swab
Complete Blood Count/With Diff Urgent
Comprehensive Metabolic Panel Urgent
NT-proBNP Urgent
PTT Urgent
Prothrombin Time Urgent
Troponin I Urgent
Influenza A+B Rapid Molecular Urgent
ALLI Source: Nasal Swab
Specimen Description:
08/19/25 17:42
Ketorolac [Toradol] 15 mg IV NOW STA
08/19/25 17:43
Ketorolac [Toradol] 15 mg .ROUTE .STK-MED ONE
08/19/25 18:29
Urinalysis Reflex To Culture Urgent
Date Specimen was Collected: 08/19/25
Time Specimen was Collected: 18:40
08/19/25 18:47
Dexamethasone Sod Phosphate [Decadron] 10 mg IV NOW STA
Ipratropium/Albuterol Sulfate [Duoneb] 3 ml INH R NOW STA
Morphine Sulfate 2 mg IV NOW STA
Abnormal Lab Results
08/19/25
17:40
WBC 21.4 H 10^3/uL
(4.8-10.8)
RBC 3.86 L 10^6/uL
(4.20-5.40)
Hgb 10.3 L g/dL
(12.0-16.0)
Hct 35.5 L %
(37.0-47.0)
MCH 26.7 L pg
(27.0-31.0)
MCHC 29.0 L g/dL
(33.0-37.0)
Abs Immat Gran (auto) 0.3 H 10^3/uL
(0-0.05)
Absolute Neuts (auto) 19.2 H 10^3/uL
(1.4-6.5)
Absolute Lymphs (auto) 0.7 L 10^3/uL
(1.2-3.4)
Absolute Monos (auto) 1.0 H 10^3/uL
(0.1-0.6)
Immature Gran % 1.5 H %
(0-0.5)
Neutrophils % 90.0 H %
(42.2-75.2)
Lymphocytes % 3.3 L %
(20.5-51.1)
Carbon Dioxide 33 H mmol/L
(22-30)
BUN 36 H mg/dl
(7-17)
Creatinine 1.5 H mg/dL
(0.6-1.0)
Glucose 140 H mg/dl
(70-99)
08/19/25 17:40
08/19/25 17:40
Vital Signs
Initial and Last Documented VS:
Initial Vital Signs
Temp Pulse Resp BP Pulse Ox
98.5 F 88 24 157/72 94
08/19/25 17:21 08/19/25 17:21 08/19/25 17:21 08/19/25 17:21 08/19/25 17:21
Last Documented Vital Signs
Temp Pulse Resp BP Pulse Ox
98.6 F 78 21 124/50 99
08/19/25 17:50 08/19/25 17:50 08/19/25 17:50 08/19/25 17:50 08/19/25 17:50
MDM/Problems Addressed
Differential Diagnosis Includes:
Note:
CHIEF COMPLAINT(S)
Shortness of breath and wheezing.
HISTORY OF PRESENT ILLNESS
The patient is a 75-year-old female with a history of Chronic Obstructive Pulmonary Disease (COPD) and renal issues, presenting with increased shortness of breath and wheezing. These symptoms have been ongoing for approximately the past month, and
the patient reports a worsening of her respiratory status. She mentioned being short of breath and experiencing wheezing. The home health nurse noted cyanosis. The patient believes that the symptoms may be a flare-up of her COPD. Daughter at
bedside states that her oxygen machine was recently unplugged.
She has been taking prednisone; however, she recently tapered down to one tablet, which may coincide with the worsening of her symptoms. A recent chest X-ray showed a small amount of fluid on the bottom of the left lung, two weeks prior, which was
managed, but now the symptoms seem to have recurred.
The patient has been on oxygen therapy, typically requiring 3-4 L/min; however, due to her current condition, she is on approximately 4-5 L/min. This increase is partially due to her pulse oxygen machine and an incident where the machine was
disconnected briefly by mistake while shopping.
Regarding pain management, the patient uses oxycodone, which effectively alleviates her pain but causes significant sedation, inhibiting her respiratory effort.
PAST MEDICAL AND SURGICAL HISTORY
The patient has a history of fractures attributed to long-term prednisone use.
CHRONIC MEDICAL CONDITIONS SIGNIFICANTLY AFFECTING CARE
The patients chronic medical conditions include Chronic Obstructive Pulmonary Disease and renal issues requiring careful monitoring of medication side effects and adjustments.
PHYSICAL EXAM
General: Short of breath and uncomfortable
Skin: Warm, dry.
Head: Normocephalic, atraumatic
Neck: Appears supple, trachea midline.
Eyes, Ears, Nose, Mouth, and Throat: Oral mucosa moist.
Cardiovascular: No signs of cyanosis. Regular rate and rhythm
Respiratory: Respirations are non-labored. Expiratory wheezing throughout
Abdomen: Non-distended
Musculoskeletal: No deformities
Neurological: No focal neurological deficit observed.
Psychiatric: Cooperative, appropriate mood and affect.
PLAN
1. Administer a breathing treatment to address the wheezing and improve respiratory status.
2. Give a dose of Toradol for pain management to avoid sedation-related respiratory depression, and possibly consider a small dose of morphine if pain persists.
3. Conduct a chest X-ray and blood work, including checks for COVID-19 and influenza, given the patients recent stay in a rehabilitation facility.
4. Monitor oxygen levels and adjust based on respiratory needs.
DIFFERENTIAL DIAGNOSIS
The Differential Diagnosis includes, in no particular order and is not limited to:
1. COPD exacerbation
2. Congestive heart failure
3. Pneumonia
4. Acute bronchitis
5. Pulmonary embolism
6. COVID-19 infection
7. Influenza
8. Pleural effusion
9. Asthma
10. Bronchiectasis.
SUMMARY OF ENCOUNTER
The patient is a 75-year-old female with a history of Chronic Obstructive Pulmonary Disease (COPD) who presented to the emergency department with increased shortness of breath and wheezing, ongoing for approximately a month. The symptoms worsened
after tapering off prednisone. The patient requires increased oxygen, now on 5 L/min. In the emergency department, she was managed with multiple doses of DuoNeb and IV Dexamethasone. A recent chest X-ray was reviewed and showed no obvious signs of
congestive heart failure or pneumonia.
DISPOSITION
Admit as a COPD exacerbation.
ASSESSMENT
The patient is suffering from a COPD exacerbation, without evident congestive heart failure or pneumonia on the chest X-ray.
EMERGENCY TREATMENTS ADMINISTERED
DuoNeb and Intravenous Dexamethasone were administered in the emergency department.
INDEPENDENT REVIEW OF LABS AND INTERPRETATION OF TESTS
My independent interpretation of the chest x-ray shows no obvious signs of congestive heart failure or pneumonia.
MEDICATION RECONCILIATION
1. Administered multiple doses of DuoNeb in the emergency department.
2. Administered IV Dexamethasone in the emergency department.
MEDICAL DECISION MAKING
-Complexity of Data Reviewed: Chronic conditions affecting care include Chronic Obstructive Pulmonary Disease, renal issues, and history of prednisone use.
-Data:
Category 1:
Reviewed patients previous chest x-ray which did not reveal signs of congestive heart failure or pneumonia.
Category 3:
Admission for exacerbation of COPD decided upon due to requirement of increased oxygen therapy and need for further monitoring and management in the hospital.
CRITICAL CARE TIME
Not mentioned.
DIAGNOSIS
Chronic Obstructive Pulmonary Disease (COPD) exacerbation - ICD-10 J44.1
*Pulse Oximetry
SaO2: 94
Nasal Cannula flow liters per minute: 6
Patient hypoxic: no
*Critical Care Note
Total Time (30-74mins, 75-104mins- exclusive of procedures): 33 min
comment:
The high probability of a clinically significant, sudden or life threatening deterioration of the pulmonary system(s) required my full and direct attention, intervention and personal management. The aggregate critical care time was [] minutes. This
time is in addition to time spent performing reported procedures but includes the following:
[x] Data Review and interpretation
[x] Patient assessment and monitoring of vital signs
[x] Documentation
[x] Medication orders and management
ED Attending Note
-
Portions of this chart may have been created with voice recognition software.� Occasional wrong word or��sound alike� substitutions may have occurred due to the inherent limitations of voice recognition software.
Discharge Plan
Departure
Patient Disposition: Admit
Date of Disposition: 08/19/25
Time of Disposition: 19:15
Admit to: Med/Surg
Presentation/result/management discussed w/ accepting MD/DO: Hospitalist
Discharge Problem:
Acute exacerbation of chronic obstructive pulmonary disease
Prescriptions:
No Action
melatonin 5 mg tablet
10 mg PO HSPRN PRN (Reason: sleep)
loratadine [Claritin] 10 mg Tablet
10 mg PO DAILY
oxycodone 5 mg Tablet
5 mg PO Q6HPRN PRN (Reason: severe pain) Qty: 10 0RF
guaifenesin 100 mg/5 mL Liquid
200 mg PO Q6HPRN PRN (Reason: cough)
budesonide 0.25 mg/2 mL suspension for nebulization
0.25 mg inhalation R QID
ipratropium-albuterol 0.5 mg-3 mg(2.5 mg base)/3 mL solution for nebulization
3 ml inhalation Q4HPRN PRN (Reason: shortness of breath or wheezing) Qty: 0 0RF
albuterol sulfate [Ventolin HFA] 90 mcg/actuation HFA aerosol inhaler
2 inh inhalation R Q4HPRN PRN (Reason: shortness of breath or wheezing) Qty: 0 0RF
gabapentin 100 mg Capsule
100 mg PO TID Qty: 24 0RF
aspirin 81 mg Tablet,Chewable
81 mg PO DAILY Qty: 30 0RF
folic acid 1 mg Tablet
1 mg PO DAILY Qty: 30 0RF
furosemide 20 mg Tablet
20 mg PO DAILY Qty: 30 0RF
sertraline 50 mg Tablet
50 mg PO DAILY 30 Days Qty: 30 0RF
bupropion HCl 150 mg Tablet Extended Release 24 Hr
150 mg PO DAILY Qty: 0 0RF
calcium carbonate-vitamin D3 [Oyster Shell Calcium-Vit D3] 500 mg-5 mcg (200 unit) Tablet
2 tab PO DAILY 30 Days Qty: 60 0RF
prednisone 10 mg tablet
10 mg PO DAILY Qty: 30 0RF
Rx Instructions:
Taper: 40mg daily x 3 days, 30mg daily x 3 days, 20mg daily x 3 days, then 10mg daily
Referrals:
UNKNOWN - PT NOT,INTERVIEWE [Unknown Provider]
Interventions
Interventions:
*Risk Screen - Suicide Last Done: 08/19/25 17:21
*General Assessment Last Done: 08/19/25 17:21
*Neglect/Abuse Screening Last Done: 08/19/25 17:50
*ED- Fall Risk Assessment Last Done: 08/19/25 17:50
*ED COVID-19 Vaccine History Last Done: 08/19/25 17:50
*ED Influenza Vaccine History Last Done: 08/19/25 17:50
ED- Cardiac Assessment Last Done: 08/19/25 17:50
ED- Pulmonary Assessment Last Done: 08/19/25 17:50
Discharge Date and Time
Print Language: TURKISH
[2025-08-19] MEDS: DUONEB 3 ML INH ×2 (17:44→19:42)
[2025-08-19] MEDS: TORADOL 15 MG IV (17:45)
[2025-08-19 17:51] LABS: Hematocrit 35.5 % (37.0-47.0); Hemoglobin 10.3 g/dL (12.0-16.0); Mean Corp Hgb Conc. 29.0 g/dL (33.0-37.0); Mean Corpuscular Volume 92.0 fL (81.0-99.0); Nucleated Red Blood Cells % 0 %; Platelet Count 399 10^3/uL (130-400); Red Cell Dist. Width 14.4 % (11.5-14.5)
[2025-08-19 17:58] LABS: INR 0.97; PT 13.2 Sec (11.4-14.6)
[2025-08-19 17:59] LABS: APTT 24.4 Sec (23.4-35.0)
[2025-08-19 18:13] LABS: ALT (SGPT) 18 U/L (0-35); AST (SGOT) 24 U/L (14-36); Albumin 3.7 g/dl (3.5-5.0); Alkaline Phosphatase 108 U/L (38-126); Blood Urea Nitrogen 36 mg/dl (7-17); Calcium 8.8 mg/dl (8.4-10.2); Carbon Dioxide 33 mmol/L (22-30); Chloride 102 mmol/L (98-107); Estimated Creatinine Clearance 38 ml/min; Glucose 140 mg/dl (70-99); Potassium 4.8 mmol/L (3.5-5.1); Sodium 140 mmol/L (135-145); Total Protein 6.5 g/dl (6.3-8.2); eGFR 36.12
[2025-08-19 18:22] LABS: Troponin I < 0.012 ng/ml
[2025-08-19 18:38] LABS: COVID-19 Antigen Negative (Negative)
--- NOTE | 2025-08-19 19:34 | HPS.HSE ---
Family Physician
-
Family Physician: Ant Diaz
Chief Complaint
-
shortness of breath
History of Present Illness
75-year-old female past medical history of COPD on 3 L baseline, obstructive sleep apnea, lumbar radiculopathy, HFpEF, CKD 3A, anxiety/depression, spinal stenosis, morbid obesity, bilateral kidney stones, gastric ulcers, shingles, presenting with
severe sciatic pain across her lower back rating down her left leg.
She was recently hospitalized here from 07/15 to 07/17 for lumbar to colopathy and acute COPD exacerbation. She later went to rehab and just got home this past week. She has been completing her steroid taper and is almost complete with a taper.
She developed severe sciatic pain across her lower back down the left lower leg where she normally gets the pain over the past few days. She has been taking oxycodone and gabapentin at home without improvement. She has also been having worsening
shortness of breath but denies any cough or fevers or chills. Denies any chest pain or chest tightness. Denies any lower extremity edema.
She is a former smoker but no longer drinks alcohol.
Medical History
Past Medical History
Past Medical History: Reports Other (COPD on 3 L baseline, obstructive sleep apnea, lumbar radiculopathy, HFpEF, CKD 3A, anxiety/depression, spinal stenosis, morbid obesity, bilateral kidney stones, gastric ulcers, shingles)
Past Surgical History: Reports Other ( Cholecystectomy, Orthopedic (Left shoulder reconstruction. ), Urological (Kidney surgery) and Other (Fasciotomy for fasciitis with wound VAC of lower back and thigh))
Social History
Tobacco: Former Smoker
Alcohol: None
Drug: None
Family History
Family History: Not pertinent
Allergies / Home Medications
Allergies reflects when Allergies were last updated in [facility].
Home Medications with original date entered in [facility]
Allergy/Medication List:
Allergies
Allergy/AdvReac Type Severity Reaction Status Date / Time
ampicillin Allergy Hives Verified 08/19/25 17:23
coconut Allergy Hives Verified 08/19/25 17:23
mustard Allergy Hives Verified 08/19/25 17:23
Home Medications
melatonin 5 mg tablet 10 mg PO HSPRN PRN sleep 06/22/24
loratadine 10 mg tablet (Claritin) 10 mg PO DAILY Allergies 10/08/24
oxycodone 5 mg tablet 5 mg PO Q6HPRN PRN severe pain #10 tabs 10/22/24
budesonide 0.25 mg/2 mL suspension for nebulization 0.25 mg inhalation R QID Lung/Breathing Issues 04/29/25
guaifenesin 100 mg/5 mL oral liquid 200 mg PO Q6HPRN PRN cough 04/29/25
albuterol sulfate 90 mcg/actuation aerosol inhaler (Ventolin HFA) 2 inh inhalation R Q4HPRN PRN shortness of breath or wheezing #0 grams 05/07/25
ipratropium 0.5 mg-albuterol 3 mg (2.5 mg base)/3 mL nebulization soln 3 ml inhalation Q4HPRN PRN shortness of breath or wheezing #0 mL 05/07/25
gabapentin 100 mg capsule 100 mg PO TID #24 caps 07/16/25
aspirin 81 mg chewable tablet 81 mg PO DAILY Blood clot prevention/tx #30 tabs 07/17/25
bupropion HCl 150 mg 24 hr tablet, extended release 150 mg PO DAILY Depression #0 tabs 07/17/25
calcium 500 mg (as carbonate)-vitamin D3 5 mcg (200 unit) tablet (Oyster Shell Calcium-Vitamin D3) 2 tab PO DAILY Supplement 30 days #60 tabs 07/17/25
folic acid 1 mg tablet 1 mg PO DAILY Supplement #30 tabs 07/17/25
furosemide 20 mg tablet 20 mg PO DAILY Heart Failure #30 tabs 07/17/25
prednisone 10 mg tablet 10 mg PO DAILY Lung/breathing issues #30 tabs 07/17/25
sertraline 50 mg tablet 50 mg PO DAILY Depression 30 days #30 tabs 07/17/25
Review of Systems
-
History Source: Patient
A 12 point ROS was completed and negative except as noted: Yes
Constitutional: Reports No Symptoms
EENT: Reports No Symptoms
Respiratory: Reports See HPI
Cardiac: Reports No Symptoms
Abdomen/GI: Reports No Symptoms
: Reports No Symptoms
Musculoskeletal: Reports No Symptoms
Skin: Reports No Symptoms
Neurological: Reports No Symptoms
Endocrine: Reports No Symptoms
Hematologic/Lymphatic: Reports No Symptoms
Psych: Reports No Symptoms
Physical Exam
Vital Signs
Vital Signs
Temp Pulse Resp BP Pulse Ox
98.6 F 78 21 124/50 99
08/19/25 17:50 08/19/25 17:50 08/19/25 17:50 08/19/25 17:50 08/19/25 17:50
Physical Exam
General: Well Developed, Well Nourished and No Apparent Distress
HEENT: NormoCephalic, Moist mucous membranes and Atraumatic
Respiratory: Wheezes
Cardiac: S1/S2 and Regular Rhythm; No Murmur or Rub
GI: Soft, Non Tender, Non Distended and Normal Bowel Sounds; No Organomegaly
Rectal: Deferred by Provider
Musculoskeletal: No Clubbing, No Cyanosis and No Edema
Skin: No Rash
Neuro: Nonfocal/grossly intact
Laboratory Results
-
08/19/25 17:40
08/19/25 17:40
Laboratory Results
PT 13.2 Sec (11.4-14.6) 08/19/25 17:40
INR 0.97 08/19/25 17:40
APTT 24.4 Sec (23.4-35.0) 08/19/25 17:40
Total Bilirubin 0.6 mg/dl (0.2-1.3) 08/19/25 17:40
AST 24 U/L (14-36) 08/19/25 17:40
ALT 18 U/L (0-35) 08/19/25 17:40
Alkaline Phosphatase 108 U/L (38-126) 08/19/25 17:40
Troponin I < 0.012 ng/ml 08/19/25 17:40
Data Reviewed
-
Lab Data: Labs Reviewed by me
Old Records: Reviewed
Impression/Plan
-
IMPRESSION:
PLAN:
# Acute COPD exacerbation
-Normally on 2 to 3 L baseline
-Chest x-ray shows no acute abnormality, report pending
-Cardiac BNP of 846
- DuoNebs every 6 hours
- Dexamethasone 4 mg every 12
- Continue budesonide
- Pulmonary consulted
# Acute on chronic lower back pain secondary to sciatica
-Given Toradol in ER, stop due to history of congestive heart failure and CKD
-Add Tylenol
- Continue gabapentin, oxycodone
- IV Dilaudid for breakthrough pain
# Leukocytosis secondary to steroids
- Continue to follow
Obstructive sleep apnea
Chronic HFpEF
- Continue Lasix
CKD 3A
- Renal function at baseline
Chronic anemia
- Hemoglobin of 10.3 at baseline
Anxiety/depression
- Continue bupropion, sertraline
Spinal stenosis
- Continue gabapentin, oxycodone
Morbid obesity
Bilateral kidney stone
History of gastric ulcers
History of shingles
Full code
DVT prophylaxis�heparin
Regular diet
[2025-08-19] MEDS: DECADRON 10 MG IV (19:43)
[2025-08-19] MEDS: MORPHINE SULFATE 2 MG IV (19:46)
[2025-08-19 20:21] LABS: Urine Character Clear (Clear)
[2025-08-19 20:31] LABS: Urine Red Blood Cell 0-2 /HPF (0-2); Urine White Cell 26-30 /HPF (0-5)
[2025-08-19] MEDS: DUONEB INH (21:57)
[2025-08-19] MEDS: HEPARIN 5000 UNITS SC (22:23)
[2025-08-20 03:19] VITALS: BP 122/64
[2025-08-20 06:31] VITALS: BMI 29.4
[2025-08-20 07:05] VITALS: BP 150/59
[2025-08-20 07:30] LABS: Hematocrit 32.6 % (37.0-47.0); Hemoglobin 9.6 g/dL (12.0-16.0); Mean Corp Hgb Conc. 29.4 g/dL (33.0-37.0); Mean Corpuscular Volume 92.4 fL (81.0-99.0); Nucleated Red Blood Cells % 0 %; Platelet Count 344 10^3/uL (130-400); Red Cell Dist. Width 14.3 % (11.5-14.5)
--- NOTE | 2025-08-20 07:36 | W.PN.HOSP.TC ---
Addendum entered and electronically signed by Sunny Solorio MD 08/20/25 15:12:
I discussed with pulmonary, and okay to stop steroids.
Original Note:
Today's Communication/Plan
-
See plan
Assessment / Plan
Assessment / Plan
Physical Exam
General: Well Developed, Well Nourished and No Apparent Distress
HEENT: Normocephalic, Moist mucous membranes
Respiratory: Clear to Auscultation Bilaterally
Cardiac: S1/S2 and Regular Rhythm
GI: Soft, Non Tender, Non Distended and Normal Bowel Sounds
Musculoskeletal: No Cyanosis and No Edema
Skin: Warm. Dry.
Neuro: AAOx3. Nonfocal/grossly intact
Assessment/Plan
75-year-old female with past medical history of COPD on 3 L baseline, obstructive sleep apnea, lumbar radiculopathy, HFpEF, CKD 3A, anxiety/depression, spinal stenosis, morbid obesity, bilateral kidney stones, gastric ulcers and shingles, presented
with severe sciatic pain across her lower back rating down her left leg. She was recently hospitalized here from 07/15 to 07/17 for lumbar to colopathy and acute COPD exacerbation. She later went to rehab and just got home in the past week just prior
to presentation. She had been completing her steroid taper and is almost complete with a taper. She developed severe sciatic pain across her lower back down the left lower leg where she normally gets the pain over the past few days. She has been
taking oxycodone and gabapentin at home without improvement. She has also been having worsening shortness of breath but denies any cough or fevers or chills. Denies any chest pain or chest tightness. Denies any lower extremity edema. She is a
former smoker but no longer drinks alcohol.
#Advanced COPD
-Normally on 3 to 4 L at baseline -- she is at baseline
-Chest x-ray with no acute process, similar to prior
-Cardiac BNP of 846
- DuoNebs every 6 hours
- Continue budesonide
- Pulmonary consulted
- Steroids as per pulmonary
- Incentive Spirometer and Acapella
- Patient has had poor outpatient follow-up, pulmonary mentioned that they had discussed Ohtuvaryre but she has not yet started this, and could consider Daliresp versus Azithromycin MWF as she has had many readmissions
# Acute on chronic lower back pain secondary to sciatica
- Given Toradol in ER, stop further NSAIDs due to history of congestive heart failure and CKD
- Add Tylenol
- Continue gabapentin, oxycodone
- IV Dilaudid for breakthrough pain
- Check MRI of her thoracic and lumbar spine
# Leukocytosis secondary to steroids
- Continue to follow
Obstructive sleep apnea
Chronic HFpEF
- Continue Lasix
CKD 3A
- Renal function at baseline
Chronic anemia
- Hemoglobin around baseline
Anxiety/depression
- Continue bupropion, sertraline
Spinal stenosis
- Continue gabapentin, oxycodone
Morbid obesity
Bilateral kidney stone
History of gastric ulcers
History of shingles
Full code
DVT prophylaxis�heparin
Regular diet
Anticipated Discharge: 24 - 48 hours
Subjective/Interval History
-
Date of Service: August 20, 2025
Patient was seen and examined. She reported lower back pain, but otherwise denied any other symptoms or complaints.
Objective Data
-
Labs:
Laboratory Results
08/20/25
06:54
WBC 11.6 H
Hgb 9.6 L
Hct 32.6 L
Plt Count 344
Sodium Pending
Potassium Pending
Chloride Pending
Carbon Dioxide Pending
BUN Pending
Creatinine Pending
Glucose Pending
Calcium Pending
Total Bilirubin Pending
AST Pending
ALT Pending
Alkaline Phosphatase Pending
Vital Signs:
Vital Signs
Temp Pulse Resp BP Pulse Ox
97.5 F 67 20 122/64 93
08/20/25 03:19 08/20/25 03:19 08/20/25 03:19 08/20/25 03:19 08/20/25 03:19
[2025-08-20 07:48] LABS: ALT (SGPT) 16 U/L (0-35); AST (SGOT) 16 U/L (14-36); Albumin 3.2 g/dl (3.5-5.0); Alkaline Phosphatase 97 U/L (38-126); Blood Urea Nitrogen 36 mg/dl (7-17); Calcium 8.7 mg/dl (8.4-10.2); Carbon Dioxide 34 mmol/L (22-30); Chloride 104 mmol/L (98-107); Estimated Creatinine Clearance 38 ml/min; Glucose 142 mg/dl (70-99); Potassium 5.3 mmol/L (3.5-5.1); Sodium 142 mmol/L (135-145); Total Protein 5.7 g/dl (6.3-8.2); eGFR 36.12
[2025-08-20] MEDS: PULMICORT 0.25 MG INH ×4 (07:53→19:21)
[2025-08-20] MEDS: DUONEB 3 ML INH ×4 (07:53→19:22)
[2025-08-20] MEDS: DECADRON 4 MG IV (09:12)
[2025-08-20] MEDS: OSCAL 500 + D 1000 MG PO (09:12)
[2025-08-20] MEDS: HEPARIN 5000 UNITS SC ×2 (09:12→20:52)
[2025-08-20] MEDS: CLARITIN 10 MG PO (09:13)
[2025-08-20] MEDS: ZOLOFT 50 MG PO (09:13)
[2025-08-20] MEDS: FOLVITE 1 MG PO (09:13)
[2025-08-20] MEDS: NEURONTIN 300 MG PO ×2 (09:13→20:53)
[2025-08-20] MEDS: WELLBUTRIN XL (24 hour extended release) 150 MG PO (09:13)
[2025-08-20] MEDS: LOW STRENGTH ASPIRIN 81 MG PO (09:13)
[2025-08-20] MEDS: LASIX 20 MG PO (09:13)
--- NOTE | 2025-08-20 09:38 | CON.PUL ---
Consultation
Consultation Request
Date/Time Consultation Requested: 08/20/25
Date/Time Consultation Performed: 08/20/25
Performing Provider: Christos
Reason for Consultation: H/o COPD
Medical History
-
History of Present Illness:
75-year-old female past medical history of COPD on 3 L baseline, obstructive sleep apnea, lumbar radiculopathy, HFpEF, CKD 3A, anxiety/depression, spinal stenosis, morbid obesity, bilateral kidney stones, gastric ulcers, shingles, presenting with
severe sciatic pain across her lower back rating down her left leg. She was recently hospitalized here from 07/15 to 07/17 for lumbar to colopathy and acute COPD exacerbation. She later went to rehab and just got home this past week. She has been
completing her steroid taper and is almost complete with a taper.
She developed severe sciatic pain across her lower back down the left lower leg where she normally gets the pain over the past few days. She has been taking oxycodone and gabapentin at home without improvement. No changes in her SOB than usual.
She feels she may have fluid issues in her belly, proBNP negative on admission.
Past Medical History
Past Medical History: Other (see list below)
Social History
Tobacco: Former Smoker
Alcohol: None
Drug: None
Family History
Family History: Reviewed & Not Pertinent
Allergies / Home Medications
Allergies
Allergy/AdvReac Type Severity Reaction Status Date / Time
ampicillin Allergy Hives Verified 08/19/25 17:23
coconut Allergy Hives Verified 08/19/25 17:23
mustard Allergy Hives Verified 08/19/25 17:23
Home Medications
�Medication �Instructions �Recorded �Confirmed �Last Taken �Type
melatonin 5 mg tablet 10 mg PO HSPRN PRN sleep 06/22/24 08/19/25 Unknown History
loratadine 10 mg tablet (Claritin) 10 mg PO DAILY Allergies 10/08/24 08/19/25 08/19/25 History
budesonide 0.25 mg/2 mL suspension 0.25 mg inhalation R QID 04/29/25 08/19/25 08/19/25 History
for nebulization Lung/Breathing Issues
guaifenesin 100 mg/5 mL oral liquid 200 mg PO Q6HPRN PRN cough 04/29/25 08/19/25 07/14/25 History
albuterol sulfate 90 mcg/actuation 2 inh inhalation R Q4HPRN PRN 05/07/25 08/19/25 Unknown Rx
aerosol inhaler (Ventolin HFA) shortness of breath or wheezing #0
grams
aspirin 81 mg chewable tablet 81 mg PO DAILY Blood clot 07/17/25 08/19/25 08/19/25 Rx
prevention/tx #30 tabs
bupropion HCl 150 mg 24 hr tablet, 150 mg PO DAILY Depression #0 tabs 07/17/25 08/19/25 08/19/25 Rx
extended release
calcium 500 mg (as 2 tab PO DAILY Supplement 30 days 07/17/25 08/19/25 08/19/25 Rx
carbonate)-vitamin D3 5 mcg (200 #60 tabs
unit) tablet (Oyster Shell
Calcium-Vitamin D3)
folic acid 1 mg tablet 1 mg PO DAILY Supplement #30 tabs 07/17/25 08/19/25 08/19/25 Rx
furosemide 20 mg tablet 20 mg PO DAILY Heart Failure #30 07/17/25 08/19/25 08/19/25 Rx
tabs
sertraline 50 mg tablet 50 mg PO DAILY Depression 30 days 07/17/25 08/19/25 08/19/25 Rx
#30 tabs
gabapentin 300 mg capsule 300 mg PO BID Neurological 08/19/25 08/19/25 08/19/25 History
Condition
ipratropium 0.5 mg-albuterol 3 mg 3 ml inhalation R Q4HPRN PRN 08/19/25 08/19/25 Unknown History
(2.5 mg base)/3 mL nebulization shortness of breath or wheezing
soln
Review of Systems
-
History Source: Patient
All other systems: Negative unless noted
Vitals / Labs / Diagnostic Testing
Vital Signs
Temp Pulse Resp BP Pulse Ox
97.8 F 78 15 150/59 96
08/20/25 07:05 08/20/25 07:58 08/20/25 07:58 08/20/25 07:05 08/20/25 07:58
Lab Data
08/20/25 06:54
Laboratory Results
08/19/25
17:40
PT 13.2
INR 0.97
APTT 24.4
Microbiology
08/19/25 17:40 Nasal Swab Influenza Types A & B (EDUARD) - Final
Negative for Influenza A & B, NAAT
Negative results must be combined with clinical observations
and patient history.
Nucleic Acid Amplification test (NAAT)performed on the
[employer] platform.
Diagnostic Testing:
Physical Exam
-
HEENT: Normocephalic, Anicteric and Moist Mucous Membranes
Cardiovascular: S1/S2 and Regular Rhythm
Respiratory: Clear and Non-Labored Respirations
GI: Soft, Non Distended and Non Tender
Neurology: Awake, Alert, Oriented and No Motor Deficits
Skin: Warm, Dry and Good Color
General: Comfortable and Other (NAD)
Assessment
-
75-year-old female past medical history of COPD on 3 L baseline, obstructive sleep apnea, lumbar radiculopathy, HFpEF, CKD 3A, anxiety/depression, spinal stenosis, morbid obesity, bilateral kidney stones, gastric ulcers, shingles, presenting with
severe sciatic pain across her lower back rating down her left leg. She was recently hospitalized here from 07/15 to 07/17 for lumbar to colopathy and acute COPD exacerbation. She later went to rehab and just got home this past week. She has been
completing her steroid taper and is almost complete with a taper.
She developed severe sciatic pain across her lower back down the left lower leg where she normally gets the pain over the past few days. She has been taking oxycodone and gabapentin at home without improvement. No changes in her SOB than usual.
She feels she may have fluid issues in her belly, proBNP negative on admission.
Acute on chronic back pain
Sciatic nerve pain
Advanced COPD without exacerbation
Chronic SOB-unchanged
Chronic heart failure preserved EF
Hyperglycemia
Conditions present prior to admission:
COPD/asthma overlap-currently on 2-3 L oxygen, budesonide and DuoNebs as well as prednisone 5 mg daily, consideration for Dupixent has been considered
Peripheral eosinophilia
Chronic heart failure preserved EF.
Aortic stenosis-mild.
Moderate mitral regurgitation.
Chronic kidney disease stage III.
Chronic back pain/L2 compression fracture.
Anxiety/depression.
Morbid obesity.
Obstructive sleep apnea-noncompliance with CPAP
Renal calculi
Shingles 2022
Cholecystectomy 1975. Renal calculi 1975.. Left shoulder reconstruction 1992. Carpal tunnel.
Plan
Patient is being admitted for sciatic nerve pain
This is her 3rd admission for similar
She has minor changes in breathing with each admission, she is often resumed on home meds only with up-tapering of steroids
I have warned her about her lack of follow up with pain specialist as OP--her need for readmission warrants palliative care discussions
Supplemental oxygen as needed-currently on 3 L-92% saturation--this is baseline
She has chronic SOB complaints, she reports has not changed
She has poor outpatient follow up
We had discussed Ohtuvaryre but she has not yet started this
Can consider daliresp vs azithro MWF as she has had many readmissions
Repeat CXR similar, no acute process
Resume home meds
Duo nebs 4 times daily
Pulmicort nebulizers
Mucolytic's
Singulair continues
Incentive spirometry
Acapella
Check proBNP to r/o CHF--846 down from 1870
Resume home lasix
Not in AE CHF
Observe off antibiotics
No signs and symptoms of infection
Analgesia for sciatica per primary team
She has now had recurrent admissions for back pain
Will discuss w/ care team regarding eval
DVT prophylaxis recommended-currently on heparin
GI prophylaxis recommended if on steroids for prolonged period.
Nutrition
Physical therapy.
Has not been following up on outpatient appts, cancels/no shows
Readmission rate is high due to poor follow up and noncompliance
We have discussed palliative care consult if she continues to have readmissions
Will follow
Diagnostic data:
Chest x-ray 07/02/2025-slight prominence in interstitial markings bilaterally
08/19/25- Mild patchy parenchymal opacity within both lower lungs, with main differential considerations of patchy atelectasis and/or pneumonia.
CT chest 05/04/2025: Mild bilateral upper lobe emphysema. Moderately decreased bilateral lung volumes secondary to a moderate exaggerated thoracic kyphosis.� Mild calcific atherosclerotic plaque in the coronary arteries.� Multilevel severe
osteoporotic insufficiency fractures in the thoracic spine with complete collapse of T6 and T8 and moderate loss of height at T9 and T11.� Severe scarring in the left kidney
PFTs 07/02/22: FEV1 1.25L 54%, FVC 2.09L 68%, ratio 60. Post FEV1 1.32L 57%. No significant bronchodilator response. TLC 4.34L 84%, DLCO 50% (moderate obstruction, normal volumes, moderate diffusion impairment)
[place] 05/28/2025: FVC 1.65/57%, FEV1 0.78/36%, ratio 47%, no significant BD response.� Severe obstruction and suggestive of restrictive pattern.
6MWT 05/28/25: At rest, O2 95% on room air, heart rate 74. With ambulation, O2 ousmane 90% on 3 L, max heart rate 90. 5/10 on dyspnea scale. Ambulated 300 feet.
Echocardiogram 04/22/2025-EF 45-50%, mild global hypokinesis, mild mitral stenosis and mild aortic stenosis
Total time spent on this consultation/encounter __75__ minutes which includes review of history, physical exam, medications, laboratory data, personal review of imaging, extensive review of outpatient records, discussion with care team and
respiratory therapy.
[2025-08-20 11:45] VITALS: BP 128/58
[2025-08-20 12:22] LABS: Potassium 4.9 mmol/L (3.5-5.1)
--- NOTE | 2025-08-20 14:05 | CM ---
Initial assessment completed with patient who lives with her daughter in a 1 story home plus basement, 3 steps to enter. 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 She says she was independent in ADL's and ambulation in the home. She no
longer drives. Patient has continuous O2 @ 3-4L, oxygen concentrator and large tanks, Inogen, RW, standard walker, SPC, w/ch and nebulizer. [facility] provides the O2. She does not use AD in the home. She does have in-home services with for PT/OT.
She says that [facility] provides an RN once a week. She did not know why there were 2 different agencies providing services. She does have a HC-POA. No VA benefits. No psychiatric hospitalizations. PCP is Dr. Ant Diaz. Pharmacy is [facility]
in [place]. Discharge POC: Anticipate home with resumption of HH services.
--- NOTE | 2025-08-20 14:25 | CM ---
Addendum entered by Thomas Guzman 08/20/25 16:38:
Currently on service for HH for RN, PT/OT with [facility]. Referral forwarded.
Original Note:
Initial assessment completed with patient who lives with her daughter and 2 grandchildren in a 2 story home plus basement, 3 steps to enter. Patient stays on 1st floor. 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 She says she was
independent in ADL's and ambulation in the home. She has a friend that assists with showers at least 2x/week. She no longer drives. Patient has continuous O2 @ 3-4L, oxygen concentrator and large tanks, Inogen, RW, standard walker, SPC, w/ch and
nebulizer. [facility] provides the O2. She does not use AD in the home. She does have a HC-POA. No VA benefits. No psychiatric hospitalizations. PCP is Dr. Ant Diaz. Pharmacy is [facility] in [place]. Discharge POC: TBD.
[2025-08-20 15:05] VITALS: BP 123/51
--- NOTE | 2025-08-20 16:25 | W.PN.UPDATE ---
Update Note
Progress Note Update
I just called and spoke to patient's daughter Alma Delia. We spoke about patient's current medical conditions and management.
Alma Delia mentioned that patient was told she cannot get MRI spine with contrast given her impaired renal function. Patient used to see a pain management provider in the past in [place] and used to get injections in the back. Alma Delia also mentioned that
sometimes patient's back pain is a kidney infection -- will check renal ultrasound to check for pyelonephritis (cannot do CT with contrast given kidney function), although low likelihood of UTI. Leukocytosis likely from steroids.
Will discuss case with outpatient metabolic specialist and also try to set up an outpatient pain management appointment. Alma Delia also requested patient have an outpatient nephrology appointment arranged.
[2025-08-20] MEDS: TYLENOL 650 MG PO (16:46)
[2025-08-20 19:35] VITALS: BP 110/49
[2025-08-20 23:20] VITALS: BP 90/56
[2025-08-21 03:03] VITALS: BP 148/68
[2025-08-21 06:00] VITALS: BMI 29.4
[2025-08-21 07:26] VITALS: BP 136/61
[2025-08-21] MEDS: PULMICORT 0.25 MG INH ×3 (07:27→19:36)
[2025-08-21] MEDS: DUONEB 3 ML INH ×3 (07:27→19:35)
[2025-08-21 08:11] LABS: Hematocrit 28.6 % (37.0-47.0); Hemoglobin 8.6 g/dL (12.0-16.0); Mean Corp Hgb Conc. 30.1 g/dL (33.0-37.0); Mean Corpuscular Volume 89.7 fL (81.0-99.0); Nucleated Red Blood Cells % 0 %; Platelet Count 326 10^3/uL (130-400); Red Cell Dist. Width 14.6 % (11.5-14.5)
[2025-08-21 08:39] LABS: Blood Urea Nitrogen 44 mg/dl (7-17); Calcium 8.7 mg/dl (8.4-10.2); Carbon Dioxide 32 mmol/L (22-30); Chloride 103 mmol/L (98-107); Estimated Creatinine Clearance 38 ml/min; Glucose 79 mg/dl (70-99); Potassium 5.1 mmol/L (3.5-5.1); Sodium 138 mmol/L (135-145); eGFR 36.12
[2025-08-21] MEDS: OSCAL 500 + D 1000 MG PO (08:44)
[2025-08-21] MEDS: TYLENOL 650 MG PO ×2 (08:44→16:39)
[2025-08-21] MEDS: ZOLOFT 50 MG PO (08:44)
[2025-08-21] MEDS: HEPARIN 5000 UNITS SC ×2 (08:45→20:51)
[2025-08-21] MEDS: LOW STRENGTH ASPIRIN 81 MG PO (08:45)
[2025-08-21] MEDS: FOLVITE 1 MG PO (08:45)
[2025-08-21] MEDS: LASIX 20 MG PO (08:45)
[2025-08-21] MEDS: NEURONTIN 300 MG PO ×2 (08:45→20:52)
[2025-08-21] MEDS: CLARITIN 10 MG PO (08:45)
[2025-08-21] MEDS: WELLBUTRIN XL (24 hour extended release) 150 MG PO (08:45)
--- NOTE | 2025-08-21 08:51 | PN.CDI ---
CDI
- -
CDI:
Physician Documentation Request
Admit Date: 08/19/25 20:00
Dear Doctor Lyndsey,
Clinical Indicators:
Patient admitted with acute on chronic back pain.
08/20 PN, 'Normally on 3 to 4 L at baseline -- she is at baseline'
08/20 Case management note, 'Patient has continuous O2 @ 3-4L...'
Please clarify which of the following accurately represents the patient's respiratory status:
Chronic hypoxic respiratory failure
Hypoxia only
Other, please specify
Additional information for Respiratory Failure:
Recognized criteria for Respiratory Failure (Source: Eliza Abel. 2019 October 03.
Documentation tips: Acute Respiratory Failure, The Hospitalist.)
ABGs: (1 or more) Symptoms Please indicate type if known
1. p)2 <60 or RA SPO2 <91% on RA 1. Tachypnea, SOB, dyspnea Hypoxic
2. pCO2 >45 and pH <7.35 2. Use of accessory muscles Hypercapnic
3. pO2 decrease of pCO2 increase by 3. Pallor or cyanosis Hypoxic and Hypercapnic
10 mmHg from baseline if known 4. Anxiety or restlessness Unable to determine
4. P/F Ratio (pO2/FiO2)nless than 300 5. Unable to speak in full sentences
Use of terms such as suspected, likely, concern for, or probable (associated with a specific diagnosis that is being evaluated, monitored, or treated as if it exists) are acceptable and can be coded in the inpatient setting, when documented at the
time of discharge.
Thank you,
FANG Briones RN
CDI Specialist
available via tiger text
Please use your independent medical judgment in providing your response.
--- NOTE | 2025-08-21 09:31 | W.PN.PUL3 ---
Today's Communication / Plan
-
Back pain ongoing, defer w/u to primary service
Will resume prednisone 10mg for daily use indefinitely, may be helping with back
Patient wants to stay in the hospital 'forever' and daughter feels she cannot take care of her at home
We discussed hospice consult and they both agree with discussion
Assessment
-
75-year-old female past medical history of COPD on 3 L baseline, obstructive sleep apnea, lumbar radiculopathy, HFpEF, CKD 3A, anxiety/depression, spinal stenosis, morbid obesity, bilateral kidney stones, gastric ulcers, shingles, presenting with
severe sciatic pain across her lower back rating down her left leg. She was recently hospitalized here from 07/15 to 07/17 for lumbar to colopathy and acute COPD exacerbation. She later went to rehab and just got home this past week. She has been
completing her steroid taper and is almost complete with a taper.
She developed severe sciatic pain across her lower back down the left lower leg where she normally gets the pain over the past few days. She has been taking oxycodone and gabapentin at home without improvement. No changes in her SOB than usual.
She feels she may have fluid issues in her belly, proBNP negative on admission.
Acute on chronic back pain
Sciatic nerve pain
Advanced COPD without exacerbation
Chronic SOB-unchanged
Chronic heart failure preserved EF
Hyperglycemia
Conditions present prior to admission:
COPD/asthma overlap-currently on 2-3 L oxygen, budesonide and DuoNebs as well as prednisone 5 mg daily, consideration for Dupixent has been considered
Peripheral eosinophilia
Chronic heart failure preserved EF.
Aortic stenosis-mild.
Moderate mitral regurgitation.
Chronic kidney disease stage III.
Chronic back pain/L2 compression fracture.
Anxiety/depression.
Morbid obesity.
Obstructive sleep apnea-noncompliance with CPAP
Renal calculi
Shingles 2022
Cholecystectomy 1975. Renal calculi 1975.. Left shoulder reconstruction 1992. Carpal tunnel.
Plan
Patient is being admitted for sciatic nerve pain
This is her 3rd admission for similar
She has minor changes in breathing with each admission, she is often resumed on home meds only with up-tapering of steroids
I have warned her about her lack of follow up with pain specialist as OP--her need for readmission warrants palliative care discussions
He would like to discuss her options for hospice, consult placed
Supplemental oxygen as needed-currently on 3 L-92% saturation--this is baseline
She has chronic SOB complaints, she reports has not changed
She has poor outpatient follow up
We had discussed Ohtuvaryre but she has not yet started this
Can consider daliresp vs azithro MWF as she has had many readmissions
Will add on prednisone 10mg daily, her daughter feels she does better on them, she can take this indefinitely until her back is addressed
Repeat CXR similar, no acute process
Resume home meds
Duo nebs 4 times daily
Pulmicort nebulizers
Mucolytic's
Singulair continues
Incentive spirometry
Acapella
Check proBNP to r/o CHF--846 down from 1870
Resume home lasix
Not in AE CHF
Observe off antibiotics
No signs and symptoms of infection
Analgesia for sciatica per primary team
She has now had recurrent admissions for back pain
Will discuss w/ care team regarding eval
DVT prophylaxis recommended-currently on heparin
GI prophylaxis recommended if on steroids for prolonged period.
Nutrition
Physical therapy.
Has not been following up on outpatient appts, cancels/no shows
Readmission rate is high due to poor follow up and noncompliance
We have discussed palliative care consult if she continues to have readmissions
Daughter feels she would do better in a facility then at home--they are interested in hospice placement if this would provide her a place to be cared for
Diagnostic data:
Chest x-ray 07/02/2025-slight prominence in interstitial markings bilaterally
08/19/25- Mild patchy parenchymal opacity within both lower lungs, with main differential considerations of patchy atelectasis and/or pneumonia.
CT chest 05/04/2025: Mild bilateral upper lobe emphysema. Moderately decreased bilateral lung volumes secondary to a moderate exaggerated thoracic kyphosis.� Mild calcific atherosclerotic plaque in the coronary arteries.� Multilevel severe
osteoporotic insufficiency fractures in the thoracic spine with complete collapse of T6 and T8 and moderate loss of height at T9 and T11.� Severe scarring in the left kidney
PFTs 07/02/22: FEV1 1.25L 54%, FVC 2.09L 68%, ratio 60. Post FEV1 1.32L 57%. No significant bronchodilator response. TLC 4.34L 84%, DLCO 50% (moderate obstruction, normal volumes, moderate diffusion impairment)
[place] 05/28/2025: FVC 1.65/57%, FEV1 0.78/36%, ratio 47%, no significant BD response.� Severe obstruction and suggestive of restrictive pattern.
6MWT 05/28/25: At rest, O2 95% on room air, heart rate 74. With ambulation, O2 ousmane 90% on 3 L, max heart rate 90. 5/10 on dyspnea scale. Ambulated 300 feet.
Echocardiogram 04/22/2025-EF 45-50%, mild global hypokinesis, mild mitral stenosis and mild aortic stenosis
Total time spent on this consultation/encounter __51__ minutes which includes review of history, physical exam, medications, laboratory data, personal review of imaging, extensive review of outpatient records, discussion with care team and
respiratory therapy.
Subjective Data
-
Date of Service:
Date of Service: August 21, 2025
Chief Complaint: Pulmonary Follow Up
Subjective:
Daughter at bedside
She notes ongoing back pain
Objective Data
Data Reviewed
Vital Signs / I&O / Oxygen:
Vital Signs
Temp Pulse Resp BP Pulse Ox
97.5 F 65 14 136/61 95
08/21/25 07:26 08/21/25 07:29 08/21/25 07:29 08/21/25 07:26 08/21/25 07:29
Intake and Output
08/20/25 08/21/25 08/22/25
06:59 06:59 06:59
Intake Total 0 / 2240
Balance 0 / 2240
SaO2 95
Nasal Cannula flow liters per 4
minute
Physical Exam
General: Comfortable and Other (NAD)
HEENT: Normocephalic, Anicteric and Moist Mucous Membranes
Cardiovascular: S1-S2 and Regular Rhythm
Respiratory: Clear and Non-Labored Respirations
GI: Soft, Non Distended and Non Tender
Neurology: Awake, Alert, Oriented and No Motor Deficits
Skin: Warm, Dry and Good Color
Labs/Micro/Reports
Lab Data
08/21/25 07:19
08/21/25 07:19
Microbiology
08/19/25 17:40 Nasal Swab Influenza Types A & B (EDUARD) - Final
Negative for Influenza A & B, NAAT
Negative results must be combined with clinical observations
and patient history.
Nucleic Acid Amplification test (NAAT)performed on the
[employer] platform.
--- NOTE | 2025-08-21 09:33 | W.PN.HOSP.TC ---
Today's Communication/Plan
-
See plan
Assessment / Plan
Assessment / Plan
Physical Exam
General: Well Developed, Well Nourished and No Apparent Distress
HEENT: Normocephalic, Moist mucous membranes
Respiratory: Clear to Auscultation Bilaterally
Cardiac: S1/S2 and Regular Rhythm
GI: Soft, Non Tender, Non Distended and Normal Bowel Sounds
Musculoskeletal: No Cyanosis and No Edema
Skin: Warm. Dry.
Neuro: AAOx3. Nonfocal/grossly intact
Assessment/Plan
75-year-old female with past medical history of COPD on 3 L baseline, obstructive sleep apnea, lumbar radiculopathy, HFpEF, CKD 3A, anxiety/depression, spinal stenosis, morbid obesity, bilateral kidney stones, gastric ulcers and shingles, presented
with severe sciatic pain across her lower back rating down her left leg. She was recently hospitalized here from 07/15 to 07/17 for lumbar to colopathy and acute COPD exacerbation. She later went to rehab and just got home in the past week just prior
to presentation. She had been completing her steroid taper and is almost complete with a taper. She developed severe sciatic pain across her lower back down the left lower leg where she normally gets the pain over the past few days. She has been
taking oxycodone and gabapentin at home without improvement. She has also been having worsening shortness of breath but denies any cough or fevers or chills. Denies any chest pain or chest tightness. Denies any lower extremity edema. She is a
former smoker but no longer drinks alcohol.
#Advanced COPD
#Chronic hypoxic respiratory failure
-Normally on 3 to 4 L at baseline -- she is at baseline
-Chest x-ray with no acute process, similar to prior
-Cardiac BNP of 846
- DuoNebs every 6 hours
- Continue budesonide
- Pulmonary consulted
- Continue Prednisone
- Incentive Spirometer and Acapella
- Patient has had poor outpatient follow-up, pulmonary mentioned that they had discussed Ohtuvaryre but she has not yet started this, and could consider Daliresp versus Azithromycin MWF as she has had many readmissions
# Acute on chronic lower back pain secondary to sciatica
- Patient's back pain was on LT buttock and LT leg, but now spread across lower back to the right
- Given Toradol in ER, stop further NSAIDs due to history of congestive heart failure and CKD
- Add Tylenol
- Continue gabapentin, oxycodone
- IV Dilaudid for breakthrough pain
- Sent [place] to neurosurgery, Dr. Butler and MRI radiologist: check MRI thoracic and lumbar spine without contrast
-Patient and patient's daughter Alma Delia mentioned that patient was told she cannot get MRI spine with contrast given her impaired renal function (was told by outside doctors to avoid contrast); patient used to see a pain management provider in the
past in [place] and used to get injections in the back.
-Renal ultrasound was negative for pyelonephritis (daughter was concerned about pyelonephritis) -- no other urinary symptoms present
-Will need outpatient appointment with pain management
#NSVT on 08/21/25
-Conservative management with Calcium Channel Yin (no beta yin given pulmonary issues)
#Chronic Urinary Incontinence (starting about 2 months prior to arrival)
# Leukocytosis secondary to steroids
- Continue to follow
Obstructive sleep apnea
Chronic HFpEF
- Continue Lasix
CKD 3A
- Renal function at baseline
- Patient's daughter Alma Delia requested outpatient nephrology follow-up in [place], [place] area
Chronic anemia
- Monitor Hgb
Anxiety/depression
- Continue bupropion, sertraline
Spinal stenosis
- Continue gabapentin, oxycodone
Morbid obesity
Bilateral kidney stone
History of gastric ulcers
History of shingles
Full code
DVT prophylaxis�heparin
Regular diet
Anticipated Discharge: 24 - 48 hours
Subjective/Interval History
-
Date of Service: August 21, 2025
Patient was seen and examined. She reported continued back pain.
Objective Data
-
Labs:
Laboratory Results
08/21/25
07:19
WBC 15.9 H
Hgb 8.6 L
Hct 28.6 L
Plt Count 326
Sodium 138
Potassium 5.1
Chloride 103
Carbon Dioxide 32 H
BUN 44 H
Creatinine 1.5 H
Glucose 79
Calcium 8.7
Vital Signs:
Vital Signs
Temp Pulse Resp BP Pulse Ox
97.5 F 65 14 136/61 95
08/21/25 07:26 08/21/25 07:29 08/21/25 07:29 08/21/25 07:26 08/21/25 07:29
I&O
08/20/25 08/21/25 08/22/25
06:59 06:59 06:59
Intake Total 2240 / 2240
Balance 2240 / 2240
[2025-08-21] MEDS: DUONEB INH (11:08)
[2025-08-21] MEDS: PULMICORT INH (11:08)
[2025-08-21 11:53] VITALS: BP 147/71
--- NOTE | 2025-08-21 12:23 | CON.CAR ---
Consultation
Consultation Request
Date/Time Consultation Requested: 08/21/2025
Date/Time Consultation Performed: 08/21/2025
Requesting Provider: Dr. Solorio
Performing Provider: Dr. Siegel
Reason for Consultation: NSVT
Medical History
-
Chief Complaint: Dyspnea at rest
History of Present Illness:
75 year-old female ( with chronic HFmrEF/NICM (EF 45-50%), steroid/O2 dependent COPD (on 3-4L O2 at home), moderate AR/moderate MS/mild , hypertension, CKD, sciatica/back pain, anemia, and morbid obesity presenting with back pain. Patient states
that her shortness of breath has been relatively stable at baseline. Cardiology was consulted for NSVT (18 beats noted on telemetry; asymptomatic).
Past Medical History
Past Medical History: CHF (HFrEF), COPD, HTN and Valvular Disease (Moderate AR, moderate MS, mild )
Past Surgical History: Cholecystectomy and Orthopedic
Social History
Tobacco: Former Smoker
Alcohol: Former
Living: With Family (Daughter)
Employment: Retired
Family History
Family History: Reviewed & Not Pertinent
Allergies / Home Medications
Allergy/AdvReac Type Severity Reaction Status Date / Time
ampicillin Allergy Hives Verified 08/19/25 17:23
coconut Allergy Hives Verified 08/19/25 17:23
mustard Allergy Hives Verified 08/19/25 17:23
�Medication �Instructions �Recorded �Confirmed �Type
melatonin 5 mg tablet 10 mg PO HSPRN PRN sleep 06/22/24 08/19/25 History
loratadine 10 mg tablet (Claritin) 10 mg PO DAILY Allergies 10/08/24 08/19/25 History
budesonide 0.25 mg/2 mL suspension 0.25 mg inhalation R QID 04/29/25 08/19/25 History
for nebulization Lung/Breathing Issues
guaifenesin 100 mg/5 mL oral liquid 200 mg PO Q6HPRN PRN cough 04/29/25 08/19/25 History
albuterol sulfate 90 mcg/actuation 2 inh inhalation R Q4HPRN PRN 05/07/25 08/19/25 Rx
aerosol inhaler (Ventolin HFA) shortness of breath or wheezing #0
grams
aspirin 81 mg chewable tablet 81 mg PO DAILY Blood clot 07/17/25 08/19/25 Rx
prevention/tx #30 tabs
bupropion HCl 150 mg 24 hr tablet, 150 mg PO DAILY Depression #0 tabs 07/17/25 08/19/25 Rx
extended release
calcium 500 mg (as 2 tab PO DAILY Supplement 30 days 07/17/25 08/19/25 Rx
carbonate)-vitamin D3 5 mcg (200 #60 tabs
unit) tablet (Oyster Shell
Calcium-Vitamin D3)
folic acid 1 mg tablet 1 mg PO DAILY Supplement #30 tabs 07/17/25 08/19/25 Rx
furosemide 20 mg tablet 20 mg PO DAILY Heart Failure #30 07/17/25 08/19/25 Rx
tabs
sertraline 50 mg tablet 50 mg PO DAILY Depression 30 days 07/17/25 08/19/25 Rx
#30 tabs
gabapentin 300 mg capsule 300 mg PO BID Neurological 08/19/25 08/19/25 History
Condition
ipratropium 0.5 mg-albuterol 3 mg 3 ml inhalation R Q4HPRN PRN 08/19/25 08/19/25 History
(2.5 mg base)/3 mL nebulization shortness of breath or wheezing
soln
Review of Systems
-
History Source: Patient
All other systems: Negative unless noted
Musculoskeletal: Joint Pain
Physical Exam
Vital Signs
Temp Pulse Resp BP Pulse Ox
97.6 F 82 20 147/71 97
08/21/25 11:53 08/21/25 11:53 08/21/25 11:53 08/21/25 11:53 08/21/25 11:53
Lab Results
08/21/25 07:19
08/21/25 07:19
Troponin I < 0.012 ng/ml 08/19/25 17:40
Dja-J-Ijqqqxsqbaq Pept 846 pg/ml 08/19/25 17:40
Impression / Plan
-
75 year-old female ( with chronic HFmrEF/NICM (EF 45-50%), steroid/O2 dependent COPD (on 3-4L O2 at home), moderate AR/moderate MS/mild , hypertension, CKD, sciatica/back pain, anemia, and morbid obesity presenting with back pain. Patient states
that her shortness of breath has been relatively stable at baseline. Cardiology was consulted for NSVT (18 beats noted on telemetry; asymptomatic).
NSVT:
- Not completely surprising, given her comorbidities.
- Conservative cardiac management.
- Will start Cardizem CD 120 mg daily (suboptimal in CHF, but unable to place on beta-yin secondary to severe oxygen dependent COPD and active wheezing).
Chronic HFmrEF/NICM (EF 45-50%)
- Cardiac BNP is actually less than previous (currently 8116, previously 1160 last hospitalization a few months ago.
- Fairly compensated on examination; weight is essentially at baseline.
- Continue Lasix 20 mg daily.
- Further GDMT limited:
-LINDA/ARB/ARNI: She had hypotension with Entresto in the past
-SGLT2 inhibitor: Cost prohibitive
-Aldosterone agonist: None, given CKD.
-Beta yin: Contraindicated given severe COPD (oxygen-dependent with chronic wheezing)
- TTE 04/22/2025: LVEF 45-50%, mild/moderate MS, mild , moderate AR--no need to repeat echocardiogram.
Steroid/O2 dependent COPD (on 3-4L O2 at home):
- Active wheezing on examination.
- Management as per primary team.
Valvular heart disease
- TTE 04/22/2025: LVEF 45-50%, mild/moderate MS, mild , moderate AR
- Continue to follow clinically; conservative management overall.
CKD stage IIIb
- Creatinine appears to be relatively stable at baseline.
Chronic back pain/sciatica:
- Management as per primary team.
Palliative care, currently enrolled
Data Reviewed
-
EKG: Tracing Personally Visualized and interpreted (Sinus rhythm, 18-beat run of NSVT)
Medical Tests (Nuc Med, Echo etc): Report Reviewed by me (04/2025: LVEF 45%)
Labs: Labs Reviewed by me, Discussed with Physician (Primary Hospitalist) and Discussed with Nurse
[2025-08-21] MEDS: CARDIZEM CD 120 MG PO (13:25)
--- NOTE | 2025-08-21 14:44 | CM ---
Addendum entered by Francisca Jewell 08/21/25 16:11:
CM received consult for hospice.
Patient seen bedside, discussed consult, agreeable to referral to Hospice.
Patient would like daughter, Alma Delia, involved in hospice conversation as she is unsure if she would go to a facility with hospice or home with hospice.
Original Note:
CM reviewed chart, care ongoing.
Patient current with [facility].
Patient has home O2.
Patient may benefit from PT/OT, TT to Hospitalist with request.
CM will continue to follow for all d/c planning needs.
Plan; home with [facility]
[2025-08-21 15:01] VITALS: BP 136/70
[2025-08-21] MEDS: DELTASONE 10 MG PO (16:40)
--- NOTE | 2025-08-21 16:57 | HOSPNOTE ---
Hospice referral received. Called and left a message for daughter. Awaiting return call. More information to follow.
[2025-08-21 19:42] VITALS: BP 137/67
[2025-08-21 23:13] VITALS: BP 122/59
[2025-08-22] VITALS (7 sets, daily range): BP systolic 123–138; BP diastolic 59–84; O2SAT 98; BMI 29.7
[2025-08-22] MEDS: PULMICORT 0.25 MG INH ×4 (07:08→20:04)
[2025-08-22] MEDS: DUONEB 3 ML INH ×4 (07:08→20:04)
[2025-08-22 07:50] LABS: Hematocrit 30.2 % (37.0-47.0); Hemoglobin 8.9 g/dL (12.0-16.0); Mean Corp Hgb Conc. 29.5 g/dL (33.0-37.0); Mean Corpuscular Volume 90.4 fL (81.0-99.0); Nucleated Red Blood Cells % 0 %; Platelet Count 345 10^3/uL (130-400); Red Cell Dist. Width 14.8 % (11.5-14.5)
[2025-08-22 08:16] LABS: Blood Urea Nitrogen 40 mg/dl (7-17); Calcium 8.7 mg/dl (8.4-10.2); Carbon Dioxide 34 mmol/L (22-30); Chloride 104 mmol/L (98-107); Estimated Creatinine Clearance 40 ml/min; Glucose 75 mg/dl (70-99); Potassium 4.4 mmol/L (3.5-5.1); Sodium 140 mmol/L (135-145); eGFR 39.23
[2025-08-22] MEDS: CARDIZEM CD 120 MG PO (09:18)
[2025-08-22] MEDS: CLARITIN 10 MG PO (09:18)
[2025-08-22] MEDS: DELTASONE 10 MG PO (09:19)
[2025-08-22] MEDS: LOW STRENGTH ASPIRIN 81 MG PO (09:19)
[2025-08-22] MEDS: FOLVITE 1 MG PO (09:19)
[2025-08-22] MEDS: NEURONTIN 300 MG PO ×2 (09:19→19:55)
[2025-08-22] MEDS: WELLBUTRIN XL (24 hour extended release) 150 MG PO (09:19)
[2025-08-22] MEDS: ZOLOFT 50 MG PO (09:19)
[2025-08-22] MEDS: LASIX 20 MG PO (09:19)
[2025-08-22] MEDS: HEPARIN 5000 UNITS SC ×2 (09:20→19:56)
[2025-08-22] MEDS: OSCAL 500 + D 1000 MG PO (09:20)
--- NOTE | 2025-08-22 09:57 | HOSPNOTE ---
Spoke with daughter Alma Delia about hospice and the philosophy. the plan is for patient to go to rehab to [facility] in [place] (patient was there before) and then will most likely transition to hospice at the facility at a later date or if she can
not do rehab. The daughter will discuss code status with patient today and will let Attending know if patient will be a DNR. CM updated with plan. The daughter has my number if the plan changes and will reach out.
--- NOTE | 2025-08-22 10:07 | W.PN.PUL3 ---
Today's Communication / Plan
-
MRI wtih numerous fractures, acute on chronic noted as well--she has declined back surgery
Consider spine consult for non-op options
Hospice following, she needs to discuss with her daughter what she wants to do and let us know
Ongoing [facility] discussions
Assessment
-
75-year-old female past medical history of COPD on 3 L baseline, obstructive sleep apnea, lumbar radiculopathy, HFpEF, CKD 3A, anxiety/depression, spinal stenosis, morbid obesity, bilateral kidney stones, gastric ulcers, shingles, presenting with
severe sciatic pain across her lower back rating down her left leg. She was recently hospitalized here from 07/15 to 07/17 for lumbar to colopathy and acute COPD exacerbation. She later went to rehab and just got home this past week. She has been
completing her steroid taper and is almost complete with a taper.
She developed severe sciatic pain across her lower back down the left lower leg where she normally gets the pain over the past few days. She has been taking oxycodone and gabapentin at home without improvement. No changes in her SOB than usual.
She feels she may have fluid issues in her belly, proBNP negative on admission.
Acute on chronic back pain
MRI with compression fx from T8 through T12, L1-L3, L5 with acute on chronic T12 and L1 Fx
Advanced COPD without exacerbation
Chronic SOB-unchanged
Chronic heart failure preserved EF
Hyperglycemia
Conditions present prior to admission:
COPD/asthma overlap-currently on 2-3 L oxygen, budesonide and DuoNebs as well as prednisone 5 mg daily, consideration for Dupixent has been considered
Peripheral eosinophilia
Chronic heart failure preserved EF.
Aortic stenosis-mild.
Moderate mitral regurgitation.
Chronic kidney disease stage III.
Chronic back pain/L2 compression fracture.
Anxiety/depression.
Morbid obesity.
Obstructive sleep apnea-noncompliance with CPAP
Renal calculi
Shingles 2022
Cholecystectomy 1975. Renal calculi 1975.. Left shoulder reconstruction 1992. Carpal tunnel.
Plan
Patient is being admitted for sciatic nerve pain
This is her 3rd admission for similar
She has minor changes in breathing with each admission, she is often resumed on home meds only with up-tapering of steroids
MRI noted with severe multilevel compression fx, she has declined any back surgeries
I think at this point, hospice would be best
Supplemental oxygen as needed-currently on 3 L-92% saturation--this is baseline
She has chronic SOB complaints, she reports has not changed
She has poor outpatient follow up
We had discussed Ohtuvaryre but she has not yet started this
Can consider daliresp vs azithro MWF as she has had many readmissions
Will add on prednisone 10mg daily, her daughter feels she does better on them, she can take this indefinitely until her back is addressed
Repeat CXR similar, no acute process
Resume home meds
Duo nebs 4 times daily
Pulmicort nebulizers
Mucolytic's
Singulair continues
Incentive spirometry
Acapella
Check proBNP to r/o CHF--846 down from 1870
Resume home lasix
Not in AE CHF
Observe off antibiotics
No signs and symptoms of infection
Analgesia for sciatica per primary team
She has now had recurrent admissions for back pain
Will discuss w/ care team regarding eval
DVT prophylaxis recommended-currently on heparin
GI prophylaxis recommended if on steroids for prolonged period.
Nutrition
Physical therapy.
Has not been following up on outpatient appts, cancels/no shows
Readmission rate is high due to poor follow up and noncompliance
We have discussed palliative care consult if she continues to have readmissions
Daughter feels she would do better in a facility then at home--they are interested in hospice placement if this would provide her a place to be cared for
Hospice following for decision making
Diagnostic data:
Chest x-ray 07/02/2025-slight prominence in interstitial markings bilaterally
08/19/25- Mild patchy parenchymal opacity within both lower lungs, with main differential considerations of patchy atelectasis and/or pneumonia.
CT chest 05/04/2025: Mild bilateral upper lobe emphysema. Moderately decreased bilateral lung volumes secondary to a moderate exaggerated thoracic kyphosis.� Mild calcific atherosclerotic plaque in the coronary arteries.� Multilevel severe
osteoporotic insufficiency fractures in the thoracic spine with complete collapse of T6 and T8 and moderate loss of height at T9 and T11.� Severe scarring in the left kidney
Lumbar MRI 08/22/25- Multilevel chronic compression fractures. Acute superimposed on chronic compression deformities at T12, L1, and L4, as detailed above. Minor acute inferior endplate compression fracture of L5.
PFTs 07/02/22: FEV1 1.25L 54%, FVC 2.09L 68%, ratio 60. Post FEV1 1.32L 57%. No significant bronchodilator response. TLC 4.34L 84%, DLCO 50% (moderate obstruction, normal volumes, moderate diffusion impairment)
Cadet 05/28/2025: FVC 1.65/57%, FEV1 0.78/36%, ratio 47%, no significant BD response.� Severe obstruction and suggestive of restrictive pattern.
6MWT 05/28/25: At rest, O2 95% on room air, heart rate 74. With ambulation, O2 ousmane 90% on 3 L, max heart rate 90. 5/10 on dyspnea scale. Ambulated 300 feet.
Echocardiogram 04/22/2025-EF 45-50%, mild global hypokinesis, mild mitral stenosis and mild aortic stenosis
Total time spent on this consultation/encounter __51__ minutes which includes review of history, physical exam, medications, laboratory data, personal review of imaging, extensive review of outpatient records, discussion with care team and
respiratory therapy.
Subjective Data
-
Date of Service:
Date of Service: August 22, 2025
Chief Complaint: Pulmonary Follow Up
Subjective:
Back pain ongoing
Slight wheeze on R today
No new complaints
Objective Data
Data Reviewed
Vital Signs / I&O / Oxygen:
Vital Signs
Temp Pulse Resp BP Pulse Ox
97.9 F 70 20 125/66 100
08/22/25 07:15 08/22/25 09:19 08/22/25 07:15 08/22/25 09:19 08/22/25 07:15
Intake and Output
08/21/25 08/22/25 08/23/25
06:59 06:59 06:59
Intake Total 2240 / 2240
Balance 2240 / 2240
SaO2 100
Nasal Cannula flow liters per 3
minute
Physical Exam
General: Comfortable and Other (NAD)
HEENT: Normocephalic, Anicteric and Moist Mucous Membranes
Cardiovascular: S1-S2 and Regular Rhythm
Respiratory: Clear (L), Wheeze (R) and Non-Labored Respirations
GI: Soft, Non Distended and Non Tender
Neurology: Awake, Alert, Oriented and No Motor Deficits
Skin: Warm, Dry and Good Color
Labs/Micro/Reports
Lab Data
08/22/25 07:05
08/22/25 07:05
Microbiology
08/19/25 20:12 Urine Urine Culture - Final
Escherichia coli
08/19/25 17:40 Nasal Swab Influenza Types A & B (EDUARD) - Final
Negative for Influenza A & B, NAAT
Negative results must be combined with clinical observations
and patient history.
Nucleic Acid Amplification test (NAAT)performed on the
[employer] platform.
--- NOTE | 2025-08-22 10:27 | CM ---
Addendum entered by Francisca Jewell 08/22/25 14:38:
CM spoke with daughterAlma Delia, would like patient to get some rehab, preference [facility], if unable to accept, requesting [place] [facility].
Daughter is now looking to bring patient home after rehab, not looking for LTC, will send updates to SNFS.
Original Note:
MARIVEL reviewed chart, spoke with Hospice Nurse Malika.
Malika spoke with pts daughter, Alma Delia, discussed options for patient.
Daughter requesting referral to [facility] for SNF, potential transition to LTC with hospice.
Referral placed in [facility].
CM will continue to follow for all d/c planning needs.
Plan; ref to [facility]
--- NOTE | 2025-08-22 10:55 | W.PN.CD ---
Today's Communication / Plan
-
- Maintain conservative cardiac management.
- Continue Cardizem CD 120 mg daily (suboptimal in CHF, but unable to place on beta-yin secondary to severe oxygen dependent COPD).
- No further cardiac recommendations at this time; outpatient follow-up with Cardiology.
Impression / Plan
-
75 year-old female ( with chronic HFmrEF/NICM (EF 45-50%), steroid/O2 dependent COPD (on 3-4L O2 at home), moderate AR/moderate MS/mild , hypertension, CKD, sciatica/back pain, anemia, and morbid obesity presenting with back pain. Patient states
that her shortness of breath has been relatively stable at baseline. Cardiology was consulted for NSVT (18 beats noted on telemetry; asymptomatic).
NSVT:
- Not completely surprising, given her comorbidities.
- Maintain conservative cardiac management.
- Continue Cardizem CD 120 mg daily (suboptimal in CHF, but unable to place on beta-yin secondary to severe oxygen dependent COPD).
Chronic HFmrEF/NICM (EF 45-50%)
- Cardiac BNP is actually less than previous (currently 8116, previously 1160 last hospitalization a few months ago.
- Fairly compensated on examination; weight is essentially at baseline.
- Continue Lasix 20 mg daily.
- Further GDMT limited:
-LINDA/ARB/ARNI: She had hypotension with Entresto in the past
-SGLT2 inhibitor: Cost prohibitive
-Aldosterone agonist: None, given CKD.
-Beta yin: Contraindicated given severe COPD (oxygen-dependent with chronic wheezing)
- TTE 04/22/2025: LVEF 45-50%, mild/moderate MS, mild , moderate AR--no need to repeat echocardiogram.
PSVT:
- Noted on telemetry
- Continue Cardizem CD 140 mg daily.
Steroid/O2 dependent COPD (on 3-4L O2 at home):
- Improving.
- ContinueManagement as per primary team.
Valvular heart disease
- TTE 04/22/2025: LVEF 45-50%, mild/moderate MS, mild , moderate AR
- Follow clinically as outpatient; conservative management overall.
CKD stage IIIb
- Creatinine appears to be relatively stable at baseline.
Chronic back pain/sciatica:
- Management as per primary team.
Palliative care, currently enrolled
Physical Exam
Vital Signs/Labs
Vital Signs
Temp Pulse Resp BP Pulse Ox
97.9 F 70 20 125/66 100
08/22/25 07:15 08/22/25 09:19 08/22/25 07:15 08/22/25 09:19 08/22/25 07:15
08/21/25 08/22/25 08/23/25
06:59 06:59 06:59
Actual Weight 87.742 kg 88.706 kg
08/22/25 07:05
08/22/25 07:05
PT 13.2 Sec (11.4-14.6) 08/19/25 17:40
INR 0.97 08/19/25 17:40
APTT 24.4 Sec (23.4-35.0) 08/19/25 17:40
08/19/25
17:40
Nyz-D-Uioavmjrbdj Pept 846
LAB Results
08/19/25
17:40
Troponin I < 0.012
Physical Exam
Constitutional: No acute distress and Comfortable
EENT: Anicteric
Cardiovascular: Rhythm & rate is regular, Pedal edema is absent, Systolic murmur present (11/19) and S1S2 is normal
Respiratory: Respiratory effort normal and Lungs clear to auscul.
GI: Soft
Neuro/Psych: AO x 3
Other: Skin (Warm, dry)
Data Reviewed
-
Date of Service: August 22, 2025
EKG: Tracing Personally Visualized and interpreted (Telemetry: Sinus rhythm, brief run of PSVT)
Labs: Labs Reviewed by me
--- NOTE | 2025-08-22 12:12 | PTCARENOTE ---
Assumed care of pt from previous nurse. Pt to back with movement, not at rest. Pt at MRI at this time. pt is on tele running nsr. Pt lungs are diminished, sob, exp wheezes. Pt call moyer is within reach, pt rings maurilio. will cont to monitor.
--- NOTE | 2025-08-22 18:24 | W.PN.HOSP.TC ---
Today's Communication/Plan
-
Pain control, PT/OT, placement
Assessment / Plan
Assessment / Plan
Physical Exam
General: Well Developed, Well Nourished and No Apparent Distress
HEENT: Normocephalic, Moist mucous membranes
Respiratory: Clear to Auscultation Bilaterally
Cardiac: S1/S2 and Regular Rhythm
GI: Soft, Non Tender, Non Distended and Normal Bowel Sounds
Musculoskeletal: No Cyanosis and No Edema
Skin: Warm. Dry.
Neuro: AAOx3. Nonfocal/grossly intact
Assessment/Plan
75-year-old female with past medical history of COPD on 3 L baseline, obstructive sleep apnea, lumbar radiculopathy, HFpEF, CKD 3A, anxiety/depression, spinal stenosis, morbid obesity, bilateral kidney stones, gastric ulcers and shingles, presented
with severe sciatic pain across her lower back rating down her left leg. She was recently hospitalized here from 07/15 to 07/17 for lumbar to colopathy and acute COPD exacerbation. She later went to rehab and just got home in the past week just prior
to presentation. She had been completing her steroid taper and is almost complete with a taper. She developed severe sciatic pain across her lower back down the left lower leg where she normally gets the pain over the past few days. She has been
taking oxycodone and gabapentin at home without improvement. She has also been having worsening shortness of breath but denies any cough or fevers or chills. Denies any chest pain or chest tightness. Denies any lower extremity edema. She is a
former smoker but no longer drinks alcohol.
#Advanced COPD
#Chronic hypoxic respiratory failure
-Normally on 3 to 4 L at baseline -- she is at baseline
-Chest x-ray with no acute process, similar to prior
-Cardiac BNP of 846
- DuoNebs every 6 hours
- Continue budesonide
- Pulmonary consulted
- Continue Prednisone
- Incentive Spirometer and Acapella
- Patient has had poor outpatient follow-up, pulmonary mentioned that they had discussed Ohtuvaryre but she has not yet started this, and could consider Daliresp versus Azithromycin MW as she has had many readmissions
# Acute on chronic lower back pain secondary to sciatica
- Patient's back pain was on LT buttock and LT leg, but now spread across lower back to the right
- Given Toradol in ER, stop further NSAIDs due to history of congestive heart failure and CKD
- Add Tylenol
- Continue gabapentin, oxycodone
- IV Dilaudid for breakthrough pain
- Sent [place] Text to neurosurgery, Dr. Butler and MRI radiologist: checked MRI thoracic and lumbar spine without contrast -- new compression fracture
-Patient and patient's daughter Alma Delia mentioned that patient was told she cannot get MRI spine with contrast given her impaired renal function (was told by outside doctors to avoid contrast); patient used to see a pain management provider in the
past in [place] and used to get injections in the back.
-Renal ultrasound was negative for pyelonephritis (daughter was concerned about pyelonephritis) -- no other urinary symptoms present
-Will need outpatient appointment with pain management
-Ordered high strength Tylenol, as needed Oxycodone for pain management
#NSVT on 08/21/25
-Conservative management with Calcium Channel Yin (no beta yin given pulmonary issues)
#Chronic Urinary Incontinence (starting about 2 months prior to arrival)
# Leukocytosis secondary to steroids
- Continue to follow. No concern for infection at this time.
Obstructive sleep apnea
Chronic HFpEF
- Continue Lasix
CKD 3A
- Renal function at baseline
- Patient's daughter Alma Delia requested outpatient nephrology follow-up in [place], [place] area
Chronic anemia
- Monitor Hgb
Anxiety/depression
- Continue bupropion, sertraline
Spinal stenosis
- Continue gabapentin, oxycodone
Morbid obesity
Bilateral kidney stone
History of gastric ulcers
History of shingles
Full code
DVT prophylaxis�heparin
Regular diet
Anticipated Discharge: 24 - 48 hours
Subjective/Interval History
-
Date of Service: August 22, 2025
Patient was seen and examined. She was still having back pain, at times severe.
Objective Data
-
Labs:
Laboratory Results
08/22/25
07:05
WBC 13.9 H
Hgb 8.9 L
Hct 30.2 L
Plt Count 345
Sodium 140
Potassium 4.4
Chloride 104
Carbon Dioxide 34 H
BUN 40 H
Creatinine 1.4 H
Glucose 75
Calcium 8.7
Vital Signs:
Vital Signs
Temp Pulse Resp BP Pulse Ox
98.2 F 76 16 125/60 94
08/22/25 15:38 08/22/25 15:40 08/22/25 15:40 08/22/25 15:38 08/22/25 15:38
I&O
08/21/25 08/22/25 08/23/25
06:59 06:59 06:59
Intake Total 2239 / 2239
Balance 2239 / 2240
[2025-08-22] MEDS: TYLENOL 1000 MG PO (19:56)
[2025-08-23] VITALS (7 sets, daily range): BP systolic 130–152; BP diastolic 66–71; PULSE 81; O2SAT 94; BMI 29.7
[2025-08-23] MEDS: TYLENOL PO (03:02)
[2025-08-23] MEDS: PULMICORT 0.25 MG INH ×4 (07:31→19:26)
[2025-08-23] MEDS: DUONEB 3 ML INH ×4 (07:31→19:26)
[2025-08-23] MEDS: CLARITIN 10 MG PO (07:57)
[2025-08-23] MEDS: OSCAL 500 + D 1000 MG PO (07:57)
[2025-08-23] MEDS: NEURONTIN 300 MG PO ×2 (07:57→19:30)
[2025-08-23] MEDS: WELLBUTRIN XL (24 hour extended release) 150 MG PO (07:57)
[2025-08-23] MEDS: LOW STRENGTH ASPIRIN 81 MG PO (07:57)
[2025-08-23] MEDS: FOLVITE 1 MG PO (07:58)
[2025-08-23] MEDS: HEPARIN 5000 UNITS SC ×2 (07:58→19:30)
[2025-08-23] MEDS: DELTASONE 10 MG PO (07:58)
[2025-08-23] MEDS: ZOLOFT 50 MG PO (07:58)
[2025-08-23] MEDS: LASIX 20 MG PO (07:58)
[2025-08-23] MEDS: CARDIZEM CD 120 MG PO (07:58)
[2025-08-23 08:51] LABS: Hematocrit 31.8 % (37.0-47.0); Hemoglobin 9.5 g/dL (12.0-16.0); Mean Corp Hgb Conc. 29.9 g/dL (33.0-37.0); Mean Corpuscular Volume 93.3 fL (81.0-99.0); Platelet Count 345 10^3/uL (130-400); Red Cell Dist. Width 14.6 % (11.5-14.5)
--- NOTE | 2025-08-23 09:07 | W.PN.PUL3 ---
Today's Communication / Plan
-
No new complaints, remains on baseline O2 amounts
Continue chronic prednisone 10mg indefinitely
OP FU to be determined depending on her hospice discussions, this will continue as OP
Otherwise, d/c planning to SNF--will defer to team for placement
We will sign off at this time, pls call with questions
Assessment
-
75-year-old female past medical history of COPD on 3 L baseline, obstructive sleep apnea, lumbar radiculopathy, HFpEF, CKD 3A, anxiety/depression, spinal stenosis, morbid obesity, bilateral kidney stones, gastric ulcers, shingles, presenting with
severe sciatic pain across her lower back rating down her left leg. She was recently hospitalized here from 07/15 to 07/17 for lumbar to colopathy and acute COPD exacerbation. She later went to rehab and just got home this past week. She has been
completing her steroid taper and is almost complete with a taper.
She developed severe sciatic pain across her lower back down the left lower leg where she normally gets the pain over the past few days. She has been taking oxycodone and gabapentin at home without improvement. No changes in her SOB than usual.
She feels she may have fluid issues in her belly, proBNP negative on admission.
Acute on chronic back pain
MRI with compression fx from T8 through T12, L1-L3, L5 with acute on chronic T12 and L1 Fx
Advanced COPD without exacerbation
Chronic SOB-unchanged
Chronic heart failure preserved EF
Hyperglycemia
Conditions present prior to admission:
COPD/asthma overlap-currently on 2-3 L oxygen, budesonide and DuoNebs as well as prednisone 5 mg daily, consideration for Dupixent has been considered
Peripheral eosinophilia
Chronic heart failure preserved EF.
Aortic stenosis-mild.
Moderate mitral regurgitation.
Chronic kidney disease stage III.
Chronic back pain/L2 compression fracture.
Anxiety/depression.
Morbid obesity.
Obstructive sleep apnea-noncompliance with CPAP
Renal calculi
Shingles 2022
Cholecystectomy 1975. Renal calculi 1975.. Left shoulder reconstruction 1992. Carpal tunnel.
Plan
Patient is being admitted for sciatic nerve pain
This is her 3rd admission for similar
She has minor changes in breathing with each admission, she is often resumed on home meds only with up-tapering of steroids
MRI noted with severe multilevel compression fx, she has declined any back surgeries
I think at this point, hospice would be best
Supplemental oxygen as needed-currently on 3 L-92% saturation--this is baseline
She has chronic SOB complaints, she reports has not changed
She has poor outpatient follow up
We had discussed Ohtuvaryre but she has not yet started this
Can consider daliresp vs azithro MWF as she has had many readmissions
Continue on prednisone 10mg daily, her daughter feels she does better on them, she can take this indefinitely until her back is addressed
Repeat CXR similar, no acute process
Resume home meds
Duo nebs 4 times daily
Pulmicort nebulizers
Mucolytic's
Singulair continues
Incentive spirometry
Acapella
Check proBNP to r/o CHF--846 down from 1870
Resume home lasix
Not in AE CHF
Observe off antibiotics
No signs and symptoms of infection
Analgesia for sciatica per primary team
She has now had recurrent admissions for back pain
Will discuss w/ care team regarding eval
DVT prophylaxis recommended-currently on heparin
GI prophylaxis recommended if on steroids for prolonged period.
Nutrition
Physical therapy.
Has not been following up on outpatient appts, cancels/no shows
Readmission rate is high due to poor follow up and noncompliance
We have discussed palliative care consult if she continues to have readmissions
Daughter feels she would do better in a facility then at home--they are interested in hospice placement if this would provide her a place to be cared for
Hospice following for decision making--continued discussion as OP
D/c planning to SNF
Diagnostic data:
Chest x-ray 07/02/2025-slight prominence in interstitial markings bilaterally
08/19/25- Mild patchy parenchymal opacity within both lower lungs, with main differential considerations of patchy atelectasis and/or pneumonia.
CT chest 05/04/2025: Mild bilateral upper lobe emphysema. Moderately decreased bilateral lung volumes secondary to a moderate exaggerated thoracic kyphosis.� Mild calcific atherosclerotic plaque in the coronary arteries.� Multilevel severe
osteoporotic insufficiency fractures in the thoracic spine with complete collapse of T6 and T8 and moderate loss of height at T9 and T11.� Severe scarring in the left kidney
Lumbar MRI 08/22/25- Multilevel chronic compression fractures. Acute superimposed on chronic compression deformities at T12, L1, and L4, as detailed above. Minor acute inferior endplate compression fracture of L5.
PFTs 07/02/22: FEV1 1.25L 54%, FVC 2.09L 68%, ratio 60. Post FEV1 1.32L 57%. No significant bronchodilator response. TLC 4.34L 84%, DLCO 50% (moderate obstruction, normal volumes, moderate diffusion impairment)
[place] 05/28/2025: FVC 1.65/57%, FEV1 0.78/36%, ratio 47%, no significant BD response.� Severe obstruction and suggestive of restrictive pattern.
6MWT 05/28/25: At rest, O2 95% on room air, heart rate 74. With ambulation, O2 ousmane 90% on 3 L, max heart rate 90. 5/10 on dyspnea scale. Ambulated 300 feet.
Echocardiogram 04/22/2025-EF 45-50%, mild global hypokinesis, mild mitral stenosis and mild aortic stenosis
Total time spent on this consultation/encounter __45__ minutes which includes review of history, physical exam, medications, laboratory data, personal review of imaging, extensive review of outpatient records, discussion with care team and
respiratory therapy.
Subjective Data
-
Date of Service:
Date of Service: August 23, 2025
Chief Complaint: Pulmonary Follow Up
Subjective:
No new complaints
Remains stable on baseline O2
Objective Data
Data Reviewed
Vital Signs / I&O / Oxygen:
Vital Signs
Temp Pulse Resp BP Pulse Ox
97.8 F 65 18 146/70 98
08/23/25 07:15 08/23/25 07:31 08/23/25 07:31 08/23/25 07:15 08/23/25 07:31
Intake and Output
08/22/25 08/23/25 08/24/25
06:59 06:59 06:59
Intake Total 860 / 860
Balance 860 / 860
SaO2 98
Nasal Cannula flow liters per 3
minute
Physical Exam
General: Comfortable and Other (NAD)
HEENT: Normocephalic, Anicteric and Moist Mucous Membranes
Cardiovascular: S1-S2 and Regular Rhythm
Respiratory: Clear (L), Wheeze (R) and Non-Labored Respirations
GI: Soft, Non Distended and Non Tender
Neurology: Awake, Alert, Oriented and No Motor Deficits
Skin: Warm, Dry and Good Color
Labs/Micro/Reports
Lab Data
08/23/25 08:25
Microbiology
08/19/25 20:12 Urine Urine Culture - Final
Escherichia coli
[2025-08-23 09:18] LABS: Blood Urea Nitrogen 38 mg/dl (7-17); Calcium 9.2 mg/dl (8.4-10.2); Carbon Dioxide 34 mmol/L (22-30); Chloride 104 mmol/L (98-107); Estimated Creatinine Clearance 38 ml/min; Glucose 95 mg/dl (70-99); Potassium 4.4 mmol/L (3.5-5.1); Sodium 142 mmol/L (135-145); eGFR 36.12
[2025-08-23] MEDS: TYLENOL 1000 MG PO ×2 (13:39→19:30)
--- NOTE | 2025-08-23 13:45 | W.PN.HOSP.TC ---
Today's Communication/Plan
-
SNF placement -- patient is still in excruciating pain and wants the pain to be better controlled here prior to discharge -- adjusted pain meds after talking with patient
Anticipate discharge tomorrow or Tuesday
Assessment / Plan
Assessment / Plan
Physical Exam
General: Well Developed, Well Nourished and No Apparent Distress
HEENT: Normocephalic, Moist mucous membranes
Respiratory: Clear to Auscultation Bilaterally
Cardiac: S1/S2 and Regular Rhythm
GI: Soft, Non Tender, Non Distended and Normal Bowel Sounds
Musculoskeletal: No Cyanosis and No Edema
Skin: Warm. Dry.
Neuro: AAOx3. Nonfocal/grossly intact
Assessment/Plan
75-year-old female with past medical history of COPD on 3 L baseline, obstructive sleep apnea, lumbar radiculopathy, HFpEF, CKD 3A, anxiety/depression, spinal stenosis, morbid obesity, bilateral kidney stones, gastric ulcers and shingles, presented
with severe sciatic pain across her lower back rating down her left leg. She was recently hospitalized here from 07/15 to 07/17 for lumbar to colopathy and acute COPD exacerbation. She later went to rehab and just got home in the past week just prior
to presentation. She had been completing her steroid taper and is almost complete with a taper. She developed severe sciatic pain across her lower back down the left lower leg where she normally gets the pain over the past few days. She has been
taking oxycodone and gabapentin at home without improvement. She has also been having worsening shortness of breath but denies any cough or fevers or chills. Denies any chest pain or chest tightness. Denies any lower extremity edema. She is a
former smoker but no longer drinks alcohol.
#Advanced COPD
#Chronic hypoxic respiratory failure
-Normally on 3 to 4 L at baseline -- she is at baseline
-Chest x-ray with no acute process, similar to prior
-Cardiac BNP of 846
- DuoNebs every 6 hours
- Continue budesonide
- Pulmonary consulted
- Continue chronic Prednisone 10 mg daily, indefinitely
- Incentive Spirometer and Acapella
- Patient has had poor outpatient follow-up, pulmonary mentioned that they had discussed Ohtuvaryre but she has not yet started this, and could consider Daliresp versus Azithromycin MW as she has had many readmissions
# Acute on chronic lower back pain secondary to sciatica
- Patient's back pain was on LT buttock and LT leg, but now spread across lower back to the right
- Given Toradol in ER, stop further NSAIDs due to history of congestive heart failure and CKD
- Add Tylenol
- Continue gabapentin, oxycodone
- IV Dilaudid for breakthrough pain
- Sent [place] Text to neurosurgery, Dr. Butler and MRI radiologist: checked MRI thoracic and lumbar spine without contrast -- new compression fracture
-Patient and patient's daughter Alma Delia mentioned that patient was told she cannot get MRI spine with contrast given her impaired renal function (was told by outside doctors to avoid contrast); patient used to see a pain management provider in the
past in [place] and used to get injections in the back.
-Renal ultrasound was negative for pyelonephritis (daughter was concerned about pyelonephritis) -- no other urinary symptoms present
-Will need outpatient appointment with pain management
-Ordered high strength Tylenol, as needed Tramadol, Diclofenac gel
#NSVT on 08/21/25
-Conservative management with Calcium Channel Yin (no beta yin given pulmonary issues)
#Chronic Urinary Incontinence (starting about 2 months prior to arrival)
- Will need urology referral on discharge for incontinence eval
# Leukocytosis secondary to steroids vs. both UTI and steroids
-Start Cefdinir -- I asked patient on 08/23/25 if she is allergic to Cefdinir or any other antibiotics other than Ampicillin, and she said she is not
- Continue to follow. No concern for infection at this time.
Obstructive sleep apnea
Chronic HFpEF
- Continue Lasix
CKD 3A
- Renal function at baseline
- Patient's daughter Alma Delia requested outpatient nephrology follow-up in [place], [place] area
Chronic anemia
- Monitor Hgb
Anxiety/depression
- Continue bupropion, sertraline
Spinal stenosis
- Continue gabapentin, oxycodone
Morbid obesity
Bilateral kidney stone
History of gastric ulcers
History of shingles
Full code
DVT prophylaxis�heparin
Regular diet
Anticipated Discharge: 24 - 48 hours
Subjective/Interval History
-
Date of Service: August 23, 2025
Patient was seen and examined. She reported significant, but overall improved back pain. She denied any other new symptoms or complaints.
Objective Data
-
Labs:
Laboratory Results
08/23/25
08:25
WBC 13.7 H
Hgb 9.5 L
Hct 31.8 L
Plt Count 345
Sodium 142
Potassium 4.4
Chloride 104
Carbon Dioxide 34 H
BUN 38 H
Creatinine 1.5 H
Glucose 95
Calcium 9.2
Vital Signs:
Vital Signs
Temp Pulse Resp BP Pulse Ox
98.2 F 83 16 152/71 95
08/23/25 11:21 08/23/25 11:31 08/23/25 11:31 08/23/25 11:21 08/23/25 12:20
I&O
08/22/25 08/23/25 08/24/25
06:59 06:59 06:59
Intake Total 860 / 860 480 / 480
Balance 860 / 860 480 / 480
--- NOTE | 2025-08-23 13:47 | CM ---
CM reviewed chart, reviewed with Hospitalist, plan for d/c over weekend.
Patient seen bedside, agreeable to plan to d/c to [facility]- please contact Indira from [facility] admissions over weekend [phone]
Patient reports daughter, Alma Delia, will transport. CM discussed patient assist x2, can set up ambulance transport. Patient prefers family to transport.
IMM verbally reviewed, provided with copy, placed in chart.
Updates to [facility].
CM will continue to follow for all d/c planning needs.
Plan; [facility], family to transport, likely d/c over weekend.
[2025-08-23] MEDS: DICLOFENAC 1% TOPICAL GEL 2 GRAM TOPICAL (17:30)
[2025-08-23] MEDS: ULTRAM 25 MG PO ×2 (17:45→23:32)
[2025-08-23] MEDS: OMNICEF 300 MG PO (19:30)
[2025-08-23] MEDS: DICLOFENAC 1% TOPICAL GEL 100 GRAM TOPICAL (22:14)
[2025-08-23] MEDS: MELATONIN 10 MG PO (23:32)
[2025-08-24 04:00] VITALS: BP 138/65
[2025-08-24] MEDS: TYLENOL 1000 MG PO ×4 (05:10→22:14)
[2025-08-24] MEDS: ULTRAM 25 MG PO ×3 (05:12→23:34)
[2025-08-24 05:34] VITALS: BMI 29.1
[2025-08-24 07:23] VITALS: BP 139/66
[2025-08-24] MEDS: PULMICORT 0.25 MG INH ×4 (07:23→19:12)
[2025-08-24] MEDS: DUONEB 3 ML INH ×4 (07:23→19:12)
[2025-08-24] MEDS: OSCAL 500 + D 1000 MG PO (09:04)
[2025-08-24] MEDS: ZOLOFT 50 MG PO (09:04)
[2025-08-24] MEDS: FOLVITE 1 MG PO (09:05)
[2025-08-24] MEDS: WELLBUTRIN XL (24 hour extended release) 150 MG PO (09:05)
[2025-08-24] MEDS: CARDIZEM CD 120 MG PO (09:05)
[2025-08-24] MEDS: NEURONTIN 300 MG PO ×2 (09:05→19:26)
[2025-08-24] MEDS: CLARITIN 10 MG PO (09:05)
[2025-08-24] MEDS: DELTASONE 10 MG PO (09:06)
[2025-08-24] MEDS: HEPARIN 5000 UNITS SC ×2 (09:06→19:26)
[2025-08-24] MEDS: LASIX 20 MG PO (09:06)
[2025-08-24] MEDS: LOW STRENGTH ASPIRIN 81 MG PO (09:06)
[2025-08-24] MEDS: DICLOFENAC 1% TOPICAL GEL 2 GRAM TOPICAL ×4 (09:07→22:14)
[2025-08-24] MEDS: OMNICEF 300 MG PO ×2 (09:12→19:26)
[2025-08-24 11:24] VITALS: BP 130/62
[2025-08-24 11:42] LABS: Hematocrit 31.0 % (37.0-47.0); Hemoglobin 9.3 g/dL (12.0-16.0); Mean Corp Hgb Conc. 30.0 g/dL (33.0-37.0); Mean Corpuscular Volume 90.6 fL (81.0-99.0); Platelet Count 332 10^3/uL (130-400); Red Cell Dist. Width 14.8 % (11.5-14.5)
[2025-08-24 12:15] LABS: Blood Urea Nitrogen 41 mg/dl (7-17); Calcium 9.1 mg/dl (8.4-10.2); Carbon Dioxide 36 mmol/L (22-30); Chloride 100 mmol/L (98-107); Estimated Creatinine Clearance 33 ml/min; Glucose 108 mg/dl (70-99); Potassium 4.3 mmol/L (3.5-5.1); Sodium 139 mmol/L (135-145); eGFR 31.08
[2025-08-24 15:18] VITALS: BP 148/72
--- NOTE | 2025-08-24 16:56 | W.PN.HOSP.TC ---
Today's Communication/Plan
-
Titrate pain control. Add prn oxycodone, stop Dilaudid.
Patient refuses to leave hospital until pain is better controlled and she can do some ambulation.
Assessment / Plan
Assessment / Plan
Physical Exam
General: Well Developed, Well Nourished and No Apparent Distress
HEENT: Normocephalic, Moist mucous membranes
Respiratory: Clear to Auscultation Bilaterally
Cardiac: S1/S2 and Regular Rhythm
GI: Soft, Non Tender, Non Distended and Normal Bowel Sounds
Musculoskeletal: No Cyanosis and No Edema
Skin: Warm. Dry.
Neuro: AAOx3. Nonfocal/grossly intact
Assessment/Plan
75-year-old female with past medical history of COPD on 3 L baseline, obstructive sleep apnea, lumbar radiculopathy, HFpEF, CKD 3A, anxiety/depression, spinal stenosis, morbid obesity, bilateral kidney stones, gastric ulcers and shingles, presented
with severe sciatic pain across her lower back rating down her left leg. She was recently hospitalized here from 07/15 to 07/17 for lumbar to colopathy and acute COPD exacerbation. She later went to rehab and just got home in the past week just prior
to presentation. She had been completing her steroid taper and is almost complete with a taper. She developed severe sciatic pain across her lower back down the left lower leg where she normally gets the pain over the past few days. She has been
taking oxycodone and gabapentin at home without improvement. She has also been having worsening shortness of breath but denies any cough or fevers or chills. Denies any chest pain or chest tightness. Denies any lower extremity edema. She is a
former smoker but no longer drinks alcohol.
#Advanced COPD
#Chronic hypoxic respiratory failure
-Normally on 3 to 4 L at baseline -- she is at baseline
-Chest x-ray with no acute process, similar to prior
-Cardiac BNP of 846
- DuoNebs every 6 hours
- Continue budesonide
- Pulmonary consulted
- Continue chronic Prednisone 10 mg daily, indefinitely
- Incentive Spirometer and Acapella
- Patient has had poor outpatient follow-up, pulmonary mentioned that they had discussed Ohtuvaryre but she has not yet started this, and could consider Daliresp versus Azithromycin MW as she has had many readmissions
# Acute on chronic lower back pain secondary to sciatica
- Patient's back pain was on LT buttock and LT leg, but now spread across lower back to the right
- Given Toradol in ER, stop further NSAIDs due to history of congestive heart failure and CKD
- Add Tylenol
- Continue gabapentin, oxycodone
- PRN Oxy and Tramadol
- Sent [place] Text to neurosurgery, Dr. Butler and MRI radiologist: checked MRI thoracic and lumbar spine without contrast -- showed new compression fracture
- Patient and patient's daughter Alma Delia mentioned that patient was told she cannot get MRI spine with contrast given her impaired renal function (was told by outside doctors to avoid contrast); patient used to see a pain
management provider in the past in [place] and used to get injections in the back.
- Renal ultrasound was negative for pyelonephritis (daughter was concerned about pyelonephritis) -- no other urinary symptoms present
- Will need outpatient appointment with pain management
- Ordered high strength Tylenol, as needed Oxycodone, as needed Tramadol, Diclofenac gel
#NSVT on 08/21/25
-Conservative management with Calcium Channel Yin (no beta yin given pulmonary issues)
#Chronic Urinary Incontinence (starting about 2 months prior to arrival)
- Will need urology referral on discharge for incontinence eval
# Leukocytosis secondary to steroids vs. both UTI and steroids
-Start Cefdinir on 08/23/25 -- I asked patient on 08/23/25 if she is allergic to Cefdinir or any other antibiotics other than Ampicillin, and she said she is not
Obstructive sleep apnea
Chronic HFpEF
- Continue Lasix
CKD 3A
- Renal function at baseline
- Patient's daughter Alma Delia requested outpatient nephrology follow-up in [place], [place] area
Chronic anemia
- Monitor Hgb
Anxiety/depression
- Continue bupropion, sertraline
Spinal stenosis
- Continue gabapentin, oxycodone
Morbid obesity
Bilateral kidney stone
History of gastric ulcers
History of shingles
Full code
DVT prophylaxis�heparin
Regular diet
Anticipated Discharge: 24 - 48 hours
Subjective/Interval History
-
Date of Service: August 24, 2025
Patient was seen and examined. Pain has overall improved.
Objective Data
-
Labs:
Laboratory Results
08/24/25
11:14
WBC 15.7 H
Hgb 9.3 L
Hct 31.0 L
Plt Count 332
Sodium 139
Potassium 4.3
Chloride 100
Carbon Dioxide 36 H
BUN 41 H
Creatinine 1.7 H
Glucose 108 H
Calcium 9.1
Vital Signs:
Vital Signs
Temp Pulse Resp BP Pulse Ox
98.1 F 87 16 148/72 94
08/24/25 15:18 08/24/25 15:18 08/24/25 15:18 08/24/25 15:18 08/24/25 15:18
I&O
08/23/25 08/24/25 08/25/25
06:59 06:59 06:59
Intake Total 860 / 860 2039
Balance 860 / 860 2039
[2025-08-24 19:00] VITALS: BP 154/76
[2025-08-24 23:00] VITALS: BP 140/65
[2025-08-25] VITALS (8 sets, daily range): BP systolic 136–156; BP diastolic 61–69; PULSE 77–78; O2SAT 96; BMI 29.2
[2025-08-25] MEDS: TYLENOL 1000 MG PO ×4 (05:59→23:09)
[2025-08-25] MEDS: DUONEB 3 ML INH ×4 (07:25→19:15)
[2025-08-25] MEDS: PULMICORT 0.25 MG INH ×4 (07:26→19:15)
[2025-08-25] MEDS: CARDIZEM CD 120 MG PO (08:09)
[2025-08-25] MEDS: OSCAL 500 + D 1000 MG PO (08:09)
[2025-08-25] MEDS: OMNICEF 300 MG PO ×2 (08:10→21:43)
[2025-08-25] MEDS: FOLVITE 1 MG PO (08:10)
[2025-08-25] MEDS: DELTASONE 10 MG PO (08:10)
[2025-08-25] MEDS: WELLBUTRIN XL (24 hour extended release) 150 MG PO (08:10)
[2025-08-25] MEDS: CLARITIN 10 MG PO (08:10)
[2025-08-25] MEDS: NEURONTIN 300 MG PO ×2 (08:10→21:41)
[2025-08-25] MEDS: ZOLOFT 50 MG PO (08:10)
[2025-08-25] MEDS: LOW STRENGTH ASPIRIN 81 MG PO (08:10)
[2025-08-25] MEDS: LASIX 20 MG PO (08:10)
[2025-08-25] MEDS: HEPARIN 5000 UNITS SC ×2 (08:11→21:41)
[2025-08-25] MEDS: DICLOFENAC 1% TOPICAL GEL 2 GRAM TOPICAL ×3 (08:22→16:44)
[2025-08-25] MEDS: ULTRAM 25 MG PO ×2 (08:54→16:56)
[2025-08-25] MEDS: ROXICODONE 5 MG PO ×2 (13:26→23:10)
--- NOTE | 2025-08-25 17:32 | W.PN.HOSP.TC ---
Today's Communication/Plan
-
Patient has severe, excruciating pain, and when discharge is discusses, refuses to leave the hospital although pain has improved and can continue to be managed in SNF/rehab facility
Continue pain management
Assessment / Plan
Assessment / Plan
Physical Exam
General: Well Developed, Well Nourished and No Apparent Distress
HEENT: Normocephalic, Moist mucous membranes
Respiratory: Clear to Auscultation Bilaterally
Cardiac: S1/S2 and Regular Rhythm
GI: Soft, Non Tender, Non Distended and Normal Bowel Sounds
Musculoskeletal: No Cyanosis and No Edema
Skin: Warm. Dry.
Neuro: AAOx3. Nonfocal/grossly intact
Assessment/Plan
75-year-old female with past medical history of COPD on 3 L baseline, obstructive sleep apnea, lumbar radiculopathy, HFpEF, CKD 3A, anxiety/depression, spinal stenosis, morbid obesity, bilateral kidney stones, gastric ulcers and shingles, presented
with severe sciatic pain across her lower back rating down her left leg. She was recently hospitalized here from 07/15 to 07/17 for lumbar to colopathy and acute COPD exacerbation. She later went to rehab and just got home in the past week just prior
to presentation. She had been completing her steroid taper and is almost complete with a taper. She developed severe sciatic pain across her lower back down the left lower leg where she normally gets the pain over the past few days. She has been
taking oxycodone and gabapentin at home without improvement. She has also been having worsening shortness of breath but denies any cough or fevers or chills. Denies any chest pain or chest tightness. Denies any lower extremity edema. She is a
former smoker but no longer drinks alcohol.
#Acute on chronic lower back pain secondary to sciatica
- Patient's back pain was on LT buttock and LT leg, but now spread across lower back to the right
- Given Toradol in ER, stop further NSAIDs due to history of congestive heart failure and CKD
- Add Tylenol
- Continue gabapentin, oxycodone
- PRN Oxy and Tramadol
- Sent [facility] to neurosurgery, Dr. Butler and MRI radiologist: checked MRI thoracic and lumbar spine without contrast -- showed new compression fracture
- Patient and patient's daughter Alma Delia mentioned that patient was told she cannot get MRI spine with contrast given her impaired renal function (was told by outside doctors to avoid contrast); patient used to see a pain
management provider in the past in [place] and used to get injections in the back.
- Renal ultrasound was negative for pyelonephritis (daughter was concerned about pyelonephritis) -- no other urinary symptoms present
- Will need outpatient appointment with pain management
- Ordered high strength Tylenol, as needed Oxycodone, as needed Tramadol, Diclofenac gel
- Patient refuses to leave the hospital, says she is in severe pain, although it has improved
#Advanced COPD
#Chronic hypoxic respiratory failure
-Normally on 3 to 4 L at baseline -- she is at baseline
-Chest x-ray with no acute process, similar to prior
-Cardiac BNP of 846
- DuoNebs every 6 hours
- Continue budesonide
- Pulmonary consulted
- Continue chronic Prednisone 10 mg daily, indefinitely
- Incentive Spirometer and Acapella
- Patient has had poor outpatient follow-up, pulmonary mentioned that they had discussed Ohtuvaryre but she has not yet started this, and could consider Daliresp versus Azithromycin [facility] as she has had many readmissions
#NSVT on 08/21/25
-Conservative management with Calcium Channel Yin (no beta yin given pulmonary issues)
#Chronic Urinary Incontinence (starting about 2 months prior to arrival)
- Will need urology referral on discharge for incontinence eval
# Leukocytosis secondary to steroids vs. both UTI and steroids
-Started Cefdinir on 08/23/25 -- I asked patient on 08/23/25 if she is allergic to Cefdinir or any other antibiotics other than Ampicillin, and she said she is not
-Just needs 5 days course of Abx
Obstructive sleep apnea
Chronic HFpEF
- Continue Lasix
CKD 3A
- Renal function at baseline
- Patient's daughter Alma Delia requested outpatient nephrology follow-up in [place], [place] area
Chronic anemia
- Monitor Hgb
Anxiety/depression
- Continue bupropion, sertraline
Spinal stenosis
- Continue gabapentin, oxycodone
Morbid obesity
Bilateral kidney stone
History of gastric ulcers
History of shingles
Full code
DVT prophylaxis�heparin
Regular diet
Anticipated Discharge: Within 24 hours
Subjective/Interval History
-
Date of Service: August 25, 2025
Patient was seen and examined. She continues to have severe pain.
Objective Data
-
Vital Signs:
Vital Signs
Temp Pulse Resp BP Pulse Ox
98.2 F 84 16 137/69 92
08/25/25 15:25 08/25/25 15:29 08/25/25 15:29 08/25/25 15:25 08/25/25 15:29
I&O
08/24/25 08/25/25 08/26/25
06:59 06:59 06:59
Intake Total 2039 1090 / 1090
Balance 2039 1090 / 1090
--- NOTE | 2025-08-25 18:37 | PTCARENOTE ---
attending notified of possible vtach on monitor- pt did have 1 lead off but had previous similar activity- bmp and mag sent to the lab
[2025-08-25 19:26] LABS: Blood Urea Nitrogen 46 mg/dl (7-17); Calcium 9.2 mg/dl (8.4-10.2); Carbon Dioxide 32 mmol/L (22-30); Chloride 101 mmol/L (98-107); Estimated Creatinine Clearance 37 ml/min; Glucose 144 mg/dl (70-99); Magnesium 2.1 mg/dl (1.6-2.3); Potassium 4.3 mmol/L (3.5-5.1); Sodium 136 mmol/L (135-145); eGFR 36.12
[2025-08-25] MEDS: DICLOFENAC 1% TOPICAL GEL TOPICAL (21:44)
[2025-08-26 03:40] VITALS: BP 135/64
[2025-08-26] MEDS: TYLENOL 1000 MG PO ×3 (05:33→17:50)
[2025-08-26 06:00] VITALS: BMI 29.8
[2025-08-26 07:15] VITALS: BP 131/63
[2025-08-26] MEDS: DUONEB 3 ML INH ×4 (07:44→19:08)
[2025-08-26] MEDS: PULMICORT 0.25 MG INH ×2 (07:45→19:08)
[2025-08-26] MEDS: ZOLOFT 50 MG PO (08:50)
[2025-08-26] MEDS: NEURONTIN 300 MG PO ×2 (08:50→21:23)
[2025-08-26] MEDS: OMNICEF 300 MG PO ×2 (08:50→21:23)
[2025-08-26] MEDS: OSCAL 500 + D 1000 MG PO (08:50)
[2025-08-26] MEDS: FOLVITE 1 MG PO (08:50)
[2025-08-26] MEDS: LASIX 20 MG PO (08:51)
[2025-08-26] MEDS: CARDIZEM CD 120 MG PO (08:51)
[2025-08-26] MEDS: DELTASONE 10 MG PO (08:51)
[2025-08-26] MEDS: LOW STRENGTH ASPIRIN 81 MG PO (08:51)
[2025-08-26] MEDS: WELLBUTRIN XL (24 hour extended release) 150 MG PO (08:51)
[2025-08-26] MEDS: CLARITIN 10 MG PO (08:51)
[2025-08-26] MEDS: HEPARIN 5000 UNITS SC ×2 (08:56→21:22)
[2025-08-26] MEDS: DICLOFENAC 1% TOPICAL GEL 100 GRAM TOPICAL ×2 (08:58→12:07)
[2025-08-26 11:19] VITALS: BP 141/67
[2025-08-26] MEDS: PULMICORT INH ×2 (11:38→11:42)
--- NOTE | 2025-08-26 14:17 | W.PN.HOSP.TC ---
Today's Communication/Plan
-
TSLO brace
CW pain regimen and PT
DC in am if able to function out of bed
Assessment / Plan
Assessment / Plan
Assessment/Plan
75-year-old female with past medical history of COPD on 3 L baseline, obstructive sleep apnea, lumbar radiculopathy, HFpEF, CKD 3A, anxiety/depression, spinal stenosis, morbid obesity, bilateral kidney stones, gastric ulcers and shingles, presented
with severe sciatic pain across her lower back rating down her left leg. She was recently hospitalized here from 07/15 to 07/17 for lumbar to colopathy and acute COPD exacerbation. She later went to rehab and just got home in the past week just prior
to presentation. She had been completing her steroid taper and is almost complete with a taper. She developed severe sciatic pain across her lower back down the left lower leg where she normally gets the pain over the past few days. She has been
taking oxycodone and gabapentin at home without improvement. She has also been having worsening shortness of breath but denies any cough or fevers or chills. Denies any chest pain or chest tightness. Denies any lower extremity edema. She is a
former smoker but no longer drinks alcohol.
#Acute on chronic lower back pain
Secondary to acute on chronic compression fractures of thoracic and lumbar vertebral bodies. She has multiple chronic compression fractures as well in thoracic and lumbar spine.
No trauma before the acute onset of pain. Makes it more likely osteoporotic compression fractures due to chronic steroid use. Advised to see PCP and get a bone scan for osteoporosis evaluation.
No sciatica today.
Continue with the pain regimen for control. Add a TSLO brace.
Will consider nasal calcitonin for short-term use if continued bone pain
Continue with the PT
Patient is agreeable for rehab when she is able to do things out of bed.
#Advanced COPD
#Chronic hypoxic respiratory failure
-Normally on 3 to 4 L at baseline -- she is at baseline
-Chest x-ray with no acute process, similar to prior
-Cardiac BNP of 846
- DuoNebs every 6 hours
- Continue budesonide
- Pulmonary signed off
- Continue chronic Prednisone 10 mg daily, indefinitely
- Incentive Spirometer and Acapella
- Patient has had poor outpatient follow-up, pulmonary mentioned that they had discussed Ohtuvaryre but she has not yet started this, and could consider Daliresp versus Azithromycin [facility] as she has had many readmissions
#Chronic Urinary Incontinence (starting about 2 months prior to arrival)
- Will need urology referral on discharge for incontinence eval
# Leukocytosis secondary to steroids vs. both UTI and steroids
-Started Cefdinir on 08/23/25
-5 days course of Abx
Obstructive sleep apnea
Chronic HFpEF
- Continue Lasix
CKD 3A
- Renal function at baseline
- Patient's daughter Alma Delia requested outpatient nephrology follow-up in [place], [place] area
Chronic anemia
- Monitor Hgb
Anxiety/depression
- Continue bupropion, sertraline
Spinal stenosis
- Continue gabapentin, oxycodone
Morbid obesity
Bilateral kidney stone
History of gastric ulcers
History of shingles
Full code
DVT prophylaxis�heparin
Regular diet
Anticipated Discharge: Within 24 hours
Subjective/Interval History
-
Date of Service: August 26, 2025
Continues to be in pain from the vertebral compression fracture. She says it 6 out of 10 and she is not able to function. She is having hard time transferring out of the bed. She does not think she is ready for rehab.
No sciatica pain .
She says she never had osteoporosis evaluation as outpatient-advised her to return to PCP and get a bone scan as this is most likely osteoporosis related compression fractures. She is on chronic prednisone for COPD.
Denies shortness of breath at rest or cough today. No chest pain. No nausea vomiting.
Objective Data
-
Vital Signs:
Vital Signs
Temp Pulse Resp BP Pulse Ox
98.0 F 78 18 141/67 96
08/26/25 11:19 08/26/25 11:42 08/26/25 11:42 08/26/25 11:19 08/26/25 12:23
I&O
08/25/25 08/26/25 08/27/25
06:59 06:59 06:59
Intake Total 1089 / 1089
Balance 1089
Physical Exam
-
General: No Apparent Distress
Respiratory: Wheezes and Non Labored Respirations; Negative Accessory Resp Muscle Use
Cardiac: Regular Rhythm and S1/S2
GI: Soft
Neuro: AO x 3 and No Motor Deficits
Psych: Calm
Data Reviewed
-
Labs: Labs Reviewed by me
--- NOTE | 2025-08-26 15:11 | CM ---
CM reviewed chart, patient for potential d/c tomorrow.
CM spoke with Luci, liaison at [facility], will have bed for patient tomorrow.
Patient will likely require ambulance transport.
CM will continue to follow for all d/c planning needs.
Plan; [facility] once stable
[2025-08-26 15:14] VITALS: BP 139/72
[2025-08-26] MEDS: ULTRAM 25 MG PO (17:48)
[2025-08-26] MEDS: DICLOFENAC 1% TOPICAL GEL 2 GRAM TOPICAL (17:51)
[2025-08-26 19:30] VITALS: BP 158/75
[2025-08-26] MEDS: ROXICODONE 5 MG PO (22:01)
[2025-08-26] MEDS: DICLOFENAC 1% TOPICAL GEL TOPICAL (22:02)
[2025-08-26] MEDS: TYLENOL PO (23:19)
[2025-08-26 23:30] VITALS: BP 137/67
[2025-08-27] VITALS (8 sets, daily range): BP systolic 131–149; BP diastolic 63–90; PULSE 82; O2SAT 98; BMI 29.8
[2025-08-27] MEDS: ULTRAM 25 MG PO ×3 (00:17→20:28)
[2025-08-27] MEDS: TYLENOL 1000 MG PO ×4 (00:17→22:32)
[2025-08-27] MEDS: ROXICODONE 5 MG PO ×4 (05:29→22:32)
[2025-08-27] MEDS: PULMICORT 0.25 MG INH ×2 (07:33→19:20)
[2025-08-27] MEDS: DUONEB 3 ML INH ×4 (07:33→19:20)
[2025-08-27] MEDS: CARDIZEM CD 120 MG PO (09:19)
[2025-08-27] MEDS: NEURONTIN 300 MG PO ×2 (09:19→20:30)
[2025-08-27] MEDS: LASIX 20 MG PO (09:20)
[2025-08-27] MEDS: DELTASONE 10 MG PO (09:20)
[2025-08-27] MEDS: ZOLOFT 50 MG PO (09:20)
[2025-08-27] MEDS: OSCAL 500 + D 1000 MG PO (09:20)
[2025-08-27] MEDS: WELLBUTRIN XL (24 hour extended release) 150 MG PO (09:20)
[2025-08-27] MEDS: CLARITIN 10 MG PO (09:20)
[2025-08-27] MEDS: DICLOFENAC 1% TOPICAL GEL 1 GRAM TOPICAL ×2 (09:21→17:49)
[2025-08-27] MEDS: OMNICEF 300 MG PO ×2 (09:21→20:30)
[2025-08-27] MEDS: LOW STRENGTH ASPIRIN 81 MG PO (09:21)
[2025-08-27] MEDS: HEPARIN SC (09:21)
[2025-08-27] MEDS: FOLVITE 1 MG PO (09:21)
[2025-08-27] MEDS: TYLENOL PO (10:24)
--- NOTE | 2025-08-27 11:29 | CM ---
CM reviewed chart, reviewed with Hospitalist, plan to d.c patient today.
Patient feels she is not ready for d/c, needs another day or so in Hospital due to pain/incontinence.
IMM reviewed, signed, provided patient with copy, instructed to call for appeal. Patient made aware once determination made, patient will be financially responsible for hospital stay pending decision of appeal.
Update to liaisonLuci, at [facility], aware of appeal, will have bed when stable.
Plan; patient to appeal discharge, once determination made, d/c to [facility]
--- NOTE | 2025-08-27 11:45 | W.PN.HOSP.TC ---
Today's Communication/Plan
-
dc
Assessment / Plan
Assessment / Plan
Assessment/Plan
75-year-old female with past medical history of COPD on 3 L baseline, obstructive sleep apnea, lumbar radiculopathy, HFpEF, CKD 3A, anxiety/depression, spinal stenosis, morbid obesity, bilateral kidney stones, gastric ulcers and shingles, presented
with severe sciatic pain across her lower back rating down her left leg. She was recently hospitalized here from 07/15 to 07/17 for lumbar to colopathy and acute COPD exacerbation. She later went to rehab and just got home in the past week just prior
to presentation. She had been completing her steroid taper and is almost complete with a taper. She developed severe sciatic pain across her lower back down the left lower leg where she normally gets the pain over the past few days. She has been
taking oxycodone and gabapentin at home without improvement. She has also been having worsening shortness of breath but denies any cough or fevers or chills. Denies any chest pain or chest tightness. Denies any lower extremity edema. She is a
former smoker but no longer drinks alcohol.
#Acute on chronic lower back pain
Secondary to acute on chronic compression fractures of thoracic and lumbar vertebral bodies. She has multiple chronic compression fractures as well in thoracic and lumbar spine.
No trauma before the acute onset of pain. Makes it more likely osteoporotic compression fractures due to chronic steroid use. Advised to see PCP and get a bone scan for osteoporosis evaluation.
No sciatica today.
Continue with the pain regimen for control. Added a TSLO brace.
Will consider nasal calcitonin for short-term use if continued bone pain
Continue with the PT
Patient is agreeable for rehab when she is able to do things out of bed.
#Advanced COPD
#Chronic hypoxic respiratory failure
-Normally on 3 to 4 L at baseline -- she is at baseline
-Chest x-ray with no acute process, similar to prior
-Cardiac BNP of 846
- DuoNebs every 6 hours
- Continue budesonide
- Pulmonary signed off
- Continue chronic Prednisone 10 mg daily, indefinitely
- Incentive Spirometer and Acapella
- Patient has had poor outpatient follow-up, pulmonary mentioned that they had discussed Ohtuvaryre but she has not yet started this, and could consider Daliresp versus Azithromycin [facility] as she has had many readmissions
#Chronic Urinary Incontinence (starting about 2 months prior to arrival)
- Will need urology referral on discharge for incontinence eval
# Leukocytosis secondary to steroids vs. both UTI and steroids
-Started Cefdinir on 08/23/25
-5 days course of Abx
Obstructive sleep apnea
Chronic HFpEF
- Continue Lasix
CKD 3A
- Renal function at baseline
- Patient's daughter Alma Delia requested outpatient nephrology follow-up in [place], [place] area
Chronic anemia
- Monitor Hgb
Anxiety/depression
- Continue bupropion, sertraline
Spinal stenosis
- Continue gabapentin, oxycodone
Morbid obesity
Bilateral kidney stone
History of gastric ulcers
History of shingles
Full code
DVT prophylaxis�heparin
Regular diet
Medically stable for DC to rehab
Anticipated Discharge: Today
Subjective/Interval History
-
Date of Service: August 27, 2025
She says she still has the back pain. She has only used oral pain medication. She has not moved much out of the bed. PT did not work with her yet.
He denies any fever or chills.
Denies any shortness of breath. On her home FiO2.
Denies any chest pain. No nausea vomiting. Denies any constipation.
Denies any dysuria or frequency.
Objective Data
-
Vital Signs:
Vital Signs
Temp Pulse Resp BP Pulse Ox
97.5 F 94 20 149/90 98
08/27/25 07:12 08/27/25 11:26 08/27/25 11:26 08/27/25 09:20 08/27/25 11:26
I&O
08/26/25 08/27/25 08/28/25
06:59 06:59 06:59
Intake Total 2019 980 / 980
Balance 2019 980 / 980
Physical Exam
-
General: Comfortable
Respiratory: Non Labored Respirations; Negative Accessory Resp Muscle Use
Cardiac: Regular Rhythm and S1/S2; Negative Tachycardic
Neuro: AO x 3
[2025-08-27] MEDS: DICLOFENAC 1% TOPICAL GEL TOPICAL (13:27)
[2025-08-27] MEDS: MIRALAX 17 GRAMS PO (17:48)
[2025-08-27] MEDS: HEPARIN 5000 UNITS SC (20:28)
[2025-08-27] MEDS: COLACE 100 MG PO (20:30)
[2025-08-27] MEDS: DICLOFENAC 1% TOPICAL GEL 100 GRAM TOPICAL (22:34)
[2025-08-28 03:53] VITALS: BP 130/59
[2025-08-28] MEDS: ROXICODONE 5 MG PO ×2 (05:52→20:38)
[2025-08-28] MEDS: TYLENOL 1000 MG PO ×4 (05:53→22:21)
[2025-08-28 06:00] VITALS: BMI 29.5
[2025-08-28 07:10] VITALS: BP 143/58
[2025-08-28] MEDS: PULMICORT 0.25 MG INH (08:00)
[2025-08-28] MEDS: DUONEB 3 ML INH ×3 (08:00→15:23)
[2025-08-28] MEDS: NEURONTIN 300 MG PO ×2 (09:53→20:32)
[2025-08-28] MEDS: CARDIZEM CD 120 MG PO (09:53)
[2025-08-28] MEDS: CLARITIN 10 MG PO (09:53)
[2025-08-28] MEDS: WELLBUTRIN XL (24 hour extended release) 150 MG PO (09:53)
[2025-08-28] MEDS: OSCAL 500 + D 1000 MG PO (09:53)
[2025-08-28] MEDS: OMNICEF 300 MG PO ×2 (09:53→20:32)
[2025-08-28] MEDS: LOW STRENGTH ASPIRIN 81 MG PO (09:54)
[2025-08-28] MEDS: HEPARIN 5000 UNITS SC (09:54)
[2025-08-28] MEDS: LASIX 20 MG PO (09:54)
[2025-08-28] MEDS: ZOLOFT 50 MG PO (09:54)
[2025-08-28] MEDS: FOLVITE 1 MG PO (09:54)
[2025-08-28] MEDS: DELTASONE 10 MG PO (09:54)
[2025-08-28] MEDS: COLACE 100 MG PO ×2 (09:54→20:32)
[2025-08-28] MEDS: MIRALAX PO (09:55)
[2025-08-28] MEDS: DICLOFENAC 1% TOPICAL GEL 100 GRAM TOPICAL ×3 (09:55→17:23)
[2025-08-28 11:20] VITALS: BP 133/60
--- NOTE | 2025-08-28 11:33 | CM ---
CM reviewed chart, patient seen bedside, reports she did call to appeal yesterday, was unable to leave a message.
CM informed patient d/c order has been placed, patient needs to call to appeal d/c, otherwise patient may be financially responsible.
Number to call for appeal provided to patient, patient confirms she will call to appeal now.
Plan; appealing d.c, [facility] once determination made
--- NOTE | 2025-08-28 11:35 | PN.CDI ---
CDI
- -
CDI:
Physician Documentation Request
Admit Date: 08/19/25 20:00
Dear Doctor Davonte,
Clinical Indicators:
Patient admitted with acute on chronic lower back pain.
08/21 Cardiology consult, 'Chronic HFmrEF... TTE 04/22/2025: LVEF 45-50%, mild/moderate MS, mild , moderate AR...'
08/27 PN, 'Chronic HFpEF'
Due to potentially conflicting documentation, please clarify the most likely type of CHF you are evaluating, treating or monitoring.
Chronic HFmrEF
Chronic HFpEF, documentation complete
Other, please specify
Use of terms such as suspected, likely, concern for, or probable (associated with a specific diagnosis that is being evaluated, monitored, or treated as if it exists) are acceptable and can be coded in the inpatient setting, when documented at the
time of discharge.
Thank you,
FANG Briones RN
CDI Specialist
available via tiger text
Please use your independent medical judgment in providing your response.
--- NOTE | 2025-08-28 14:15 | W.PN.HOSP.TC ---
Today's Communication/Plan
-
DC
Assessment / Plan
Assessment / Plan
Assessment/Plan
75-year-old female with past medical history of COPD on 3 L baseline, obstructive sleep apnea, lumbar radiculopathy, HFpEF, CKD 3A, anxiety/depression, spinal stenosis, morbid obesity, bilateral kidney stones, gastric ulcers and shingles, presented
with severe sciatic pain across her lower back rating down her left leg. She was recently hospitalized here from 07/15 to 07/17 for lumbar to colopathy and acute COPD exacerbation. She later went to rehab and just got home in the past week just prior
to presentation. She had been completing her steroid taper and is almost complete with a taper. She developed severe sciatic pain across her lower back down the left lower leg where she normally gets the pain over the past few days. She has been
taking oxycodone and gabapentin at home without improvement. She has also been having worsening shortness of breath but denies any cough or fevers or chills. Denies any chest pain or chest tightness. Denies any lower extremity edema. She is a
former smoker but no longer drinks alcohol.
#Acute on chronic lower back pain
Secondary to acute on chronic compression fractures of thoracic and lumbar vertebral bodies. She has multiple chronic compression fractures as well in thoracic and lumbar spine.
No trauma before the acute onset of pain. Makes it more likely osteoporotic compression fractures due to chronic steroid use. Advised to see PCP and get a bone scan for osteoporosis evaluation.
No sciatica today.
Continue with the pain regimen for control. Added a TSLO brace.
Will consider nasal calcitonin for short-term use if continued bone pain
Continue with the PT
#Advanced COPD
#Chronic hypoxic respiratory failure
-Normally on 3 to 4 L at baseline -- she is at baseline
-Chest x-ray with no acute process, similar to prior
-Cardiac BNP of 846
- DuoNebs every 6 hours
- Continue budesonide
- Pulmonary signed off
- Continue chronic Prednisone 10 mg daily, indefinitely
- Incentive Spirometer and Acapella
- Patient has had poor outpatient follow-up, pulmonary mentioned that they had discussed Ohtuvaryre but she has not yet started this, and could consider Daliresp versus Azithromycin MWF as she has had many readmissions
#Chronic Urinary Incontinence (starting about 2 months prior to arrival)
- Will need urology referral on discharge for incontinence eval
# Leukocytosis secondary to steroids vs. both UTI and steroids
-Started Cefdinir on 08/23/25
-5 days course of Abx
Obstructive sleep apnea
Chronic HFpEF
- Continue Lasix
CKD 3A
- Renal function at baseline
- Patient's daughter Alma Delia requested outpatient nephrology follow-up in [place], [place] area
Chronic anemia
- Monitor Hgb
Anxiety/depression
- Continue bupropion, sertraline
Spinal stenosis
- Continue gabapentin, oxycodone
Morbid obesity
Bilateral kidney stone
History of gastric ulcers
History of shingles
Full code
DVT prophylaxis�heparin
Regular diet
Medically stable for DC to rehab
Pt is appealing discharge
Anticipated Discharge: Today
Subjective/Interval History
-
Date of Service: August 28, 2025
No new complaints other than back pain. Breathing is okay. No chest pain. No dizziness.
No worsening of back pain. Worked with PT.
Patient was discharged yesterday but she is appealing the discharge.
Objective Data
-
Vital Signs:
Vital Signs
Temp Pulse Resp BP Pulse Ox
97.6 F 80 20 133/60 93
08/28/25 11:20 08/28/25 11:20 08/28/25 11:20 08/28/25 11:20 08/28/25 11:20
I&O
08/27/25 08/28/25 08/29/25
06:59 06:59 06:59
Intake Total 980 / 980 240 / 240
Balance 980 / 980 240 / 240
Physical Exam
-
General: Comfortable
Respiratory: Crackles (few rt basal crackles) and Non Labored Respirations; Negative Wheezes or Accessory Resp Muscle Use
Cardiac: Regular Rhythm and S1/S2; Negative Tachycardic
Musculoskeletal: No Edema
Neuro: AO x 3
[2025-08-28 15:05] VITALS: BP 113/78
[2025-08-28] MEDS: ULTRAM 25 MG PO (15:54)
--- NOTE | 2025-08-28 15:58 | CM ---
CM reviewed chart, reviewed with Hospitalist.
Patient seen bedside, discussed will await for TSLO brace to be delivered.
Once brace arrives and patient works with therapy, will plan for d/c. Patient will then have right to appeal if necessary.
CM will continue to follow for all d/c planning needs.
Plan; appeal canceled- will await for TSLO brace for patient to work with therapy prior to d/c to SNF
[2025-08-28 19:00] VITALS: BP 133/62
[2025-08-28] MEDS: PULMICORT INH (20:00)
[2025-08-28] MEDS: HEPARIN SC ×2 (20:33→20:36)
[2025-08-28] MEDS: DICLOFENAC 1% TOPICAL GEL TOPICAL (21:12)
[2025-08-28 23:00] VITALS: BP 119/65
[2025-08-29 03:00] VITALS: BP 134/62
[2025-08-29] MEDS: ROXICODONE 5 MG PO (05:44)
[2025-08-29] MEDS: TYLENOL 1000 MG PO ×4 (05:44→22:03)
[2025-08-29 07:20] VITALS: BP 140/60
[2025-08-29] MEDS: PULMICORT 0.25 MG INH ×2 (07:49→19:40)
[2025-08-29] MEDS: HEPARIN 5000 UNITS SC ×2 (09:31→20:12)
[2025-08-29] MEDS: CLARITIN 10 MG PO (09:33)
[2025-08-29] MEDS: NEURONTIN 300 MG PO ×2 (09:33→20:12)
[2025-08-29] MEDS: OMNICEF 300 MG PO (09:33)
[2025-08-29] MEDS: FOLVITE 1 MG PO (09:34)
[2025-08-29] MEDS: COLACE 100 MG PO ×2 (09:34→20:13)
[2025-08-29] MEDS: LOW STRENGTH ASPIRIN 81 MG PO (09:34)
[2025-08-29] MEDS: OSCAL 500 + D 1000 MG PO (09:34)
[2025-08-29] MEDS: ZOLOFT 50 MG PO (09:34)
[2025-08-29] MEDS: LASIX 20 MG PO (09:34)
[2025-08-29] MEDS: WELLBUTRIN XL (24 hour extended release) 150 MG PO (09:34)
[2025-08-29] MEDS: CARDIZEM CD 120 MG PO (09:34)
[2025-08-29] MEDS: DICLOFENAC 1% TOPICAL GEL 100 GRAM TOPICAL ×4 (09:35→22:01)
[2025-08-29] MEDS: DELTASONE 10 MG PO (09:35)
[2025-08-29] MEDS: MIRALAX 17 GRAMS PO (09:35)
[2025-08-29 11:25] VITALS: BP 141/70
--- NOTE | 2025-08-29 13:02 | CM ---
Addendum entered by Francisca Jewell 08/29/25 13:25:
[facility]
Report: [phone]

Original Note:
CM reviewed chart, care ongoing.
Awaiting TSLO brace.
[facility] when stable for d/c
Patient will qualify for ambulance transport.
CM will continue to follow for all d/c planning needs.
Plan; awaiting TSLO brace, [facility] when stable
--- NOTE | 2025-08-29 13:18 | W.PN.HOSP.TC ---
Today's Communication/Plan
-
await brace for repeat PT/OT assessments and discharge
Assessment / Plan
Assessment / Plan
Assessment/Plan
75-year-old female with past medical history of COPD on 3 L baseline, obstructive sleep apnea, lumbar radiculopathy, HFpEF, CKD 3A, anxiety/depression, spinal stenosis, morbid obesity, bilateral kidney stones, gastric ulcers and shingles, presented
with severe sciatic pain across her lower back rating down her left leg. She was recently hospitalized here from 07/15 to 07/17 for lumbar to colopathy and acute COPD exacerbation. She later went to rehab and just got home in the past week just prior
to presentation. She had been completing her steroid taper and is almost complete with a taper. She developed severe sciatic pain across her lower back down the left lower leg where she normally gets the pain over the past few days. She has been
taking oxycodone and gabapentin at home without improvement. She has also been having worsening shortness of breath but denies any cough or fevers or chills. Denies any chest pain or chest tightness. Denies any lower extremity edema. She is a
former smoker but no longer drinks alcohol.
#Acute on chronic lower back pain
Secondary to acute on chronic compression fractures of thoracic and lumbar vertebral bodies. She has multiple chronic compression fractures as well in thoracic and lumbar spine.
No trauma before the acute onset of pain. Makes it more likely osteoporotic compression fractures due to chronic steroid use. Advised to see PCP and get a bone scan for osteoporosis evaluation.
No sciatica today.
Continue with the pain regimen for control. Await arrival of TSLO brace.
Will consider nasal calcitonin for short-term use if continued bone pain
Continue with the PT/OT
#Advanced COPD
#Chronic hypoxic respiratory failure
-Normally on 3 to 4 L at baseline -- she is at baseline
-Chest x-ray with no acute process, similar to prior
-Cardiac BNP of 846
- DuoNebs every 6 hours
- Continue budesonide
- Pulmonary signed off
- Continue chronic Prednisone 10 mg daily, indefinitely
- Incentive Spirometer and Acapella
- Patient has had poor outpatient follow-up, pulmonary mentioned that they had discussed Ohtuvaryre but she has not yet started this, and could consider Daliresp versus Azithromycin MWF as she has had many readmissions
#Chronic Urinary Incontinence (starting about 2 months prior to arrival)
- Will need urology referral on discharge for incontinence eval
# Leukocytosis secondary to steroids vs. both UTI and steroids
-Started Cefdinir on 08/23/25
-5 days course of Abx
Obstructive sleep apnea
Chronic HFpEF
- Continue Lasix
CKD 3A
- Renal function at baseline
- Patient's daughter Alma Delia requested outpatient nephrology follow-up in [place], [place] area
Chronic anemia
- Monitor Hgb
Anxiety/depression
- Continue bupropion, sertraline
Spinal stenosis
- Continue gabapentin, oxycodone
Morbid obesity
Bilateral kidney stone
History of gastric ulcers
History of shingles
Full code
DVT prophylaxis�heparin
Regular diet
Medically stable for DC to rehab; awaiting TSLO brace
Anticipated Discharge: 24 - 48 hours
Subjective/Interval History
-
Date of Service: August 29, 2025
stable pain in back
never officially appealed dc
Objective Data
-
Vital Signs:
Vital Signs
Temp Pulse Resp BP Pulse Ox
97.7 F 91 22 141/70 92
08/29/25 11:25 08/29/25 11:25 08/29/25 11:25 08/29/25 11:25 08/29/25 11:25
I&O
08/28/25 08/29/25 08/30/25
06:59 06:59 06:59
Intake Total 1759
Balance 1759
Physical Exam
-
General: No Apparent Distress
HEENT: Normocephalic and Atraumatic
Respiratory: Negative Wheezes
Cardiac: Regular Rhythm and S1/S2
GI: Soft
Genito-urinary: No Costovertebral Tender
Neuro: AO x 3
Psych: Calm
Data Reviewed
-
Total Time Spent with Patient (in minutes): 42
Labs: Labs Reviewed by me
[2025-08-29] MEDS: ULTRAM 25 MG PO (14:42)
[2025-08-29 15:38] VITALS: BP 147/65
[2025-08-29 19:42] VITALS: BP 147/73
[2025-08-29 23:32] VITALS: BP 142/65
[2025-08-30] VITALS (7 sets, daily range): BP systolic 99–152; BP diastolic 62–86; PULSE 86; O2SAT 96
[2025-08-30] MEDS: TYLENOL 1000 MG PO ×4 (06:15→22:42)
[2025-08-30 07:31] LABS: Hematocrit 27.8 % (37.0-47.0); Hemoglobin 8.3 g/dL (12.0-16.0); Mean Corp Hgb Conc. 29.9 g/dL (33.0-37.0); Mean Corpuscular Volume 90.0 fL (81.0-99.0); Platelet Count 305 10^3/uL (130-400); Red Cell Dist. Width 14.6 % (11.5-14.5)
[2025-08-30 07:49] LABS: Blood Urea Nitrogen 39 mg/dl (7-17); Calcium 9.1 mg/dl (8.4-10.2); Carbon Dioxide 32 mmol/L (22-30); Chloride 105 mmol/L (98-107); Estimated Creatinine Clearance 41 ml/min; Glucose 122 mg/dl (70-99); Potassium 4.0 mmol/L (3.5-5.1); Sodium 139 mmol/L (135-145); eGFR 39.23
[2025-08-30] MEDS: PULMICORT 0.25 MG INH ×2 (07:51→19:45)
[2025-08-30] MEDS: NEURONTIN 300 MG PO ×2 (09:35→20:23)
[2025-08-30] MEDS: DELTASONE 10 MG PO (09:35)
[2025-08-30] MEDS: OSCAL 500 + D 1000 MG PO (09:36)
[2025-08-30] MEDS: COLACE 100 MG PO ×2 (09:36→20:23)
[2025-08-30] MEDS: LASIX 20 MG PO (09:36)
[2025-08-30] MEDS: FOLVITE 1 MG PO (09:36)
[2025-08-30] MEDS: LOW STRENGTH ASPIRIN 81 MG PO (09:36)
[2025-08-30] MEDS: CLARITIN 10 MG PO (09:36)
[2025-08-30] MEDS: ZOLOFT 50 MG PO (09:36)
[2025-08-30] MEDS: WELLBUTRIN XL (24 hour extended release) 150 MG PO (09:36)
[2025-08-30] MEDS: DICLOFENAC 1% TOPICAL GEL 100 GRAM TOPICAL ×4 (09:37→22:43)
[2025-08-30] MEDS: CARDIZEM CD 120 MG PO (09:37)
[2025-08-30] MEDS: HEPARIN 5000 UNITS SC ×2 (09:37→20:22)
[2025-08-30] MEDS: MIRALAX PO (09:41)
[2025-08-30] MEDS: ROXICODONE 5 MG PO (11:43)
--- NOTE | 2025-08-30 12:56 | W.PN.HOSP.TC ---
Today's Communication/Plan
-
SNF dc Tuesday if todays PT/OT session with brace goes well
Assessment / Plan
Assessment / Plan
Assessment/Plan
75-year-old female with past medical history of COPD on 3 L baseline, obstructive sleep apnea, lumbar radiculopathy, HFpEF, CKD 3A, anxiety/depression, spinal stenosis, morbid obesity, bilateral kidney stones, gastric ulcers and shingles, presented
with severe sciatic pain across her lower back rating down her left leg. She was recently hospitalized here from 07/15 to 07/17 for lumbar to colopathy and acute COPD exacerbation. She later went to rehab and just got home in the past week just prior
to presentation. She had been completing her steroid taper and is almost complete with a taper. She developed severe sciatic pain across her lower back down the left lower leg where she normally gets the pain over the past few days. She has been
taking oxycodone and gabapentin at home without improvement. She has also been having worsening shortness of breath but denies any cough or fevers or chills. Denies any chest pain or chest tightness. Denies any lower extremity edema. She is a
former smoker but no longer drinks alcohol.
#Acute on chronic lower back pain
Secondary to acute on chronic compression fractures of thoracic and lumbar vertebral bodies. She has multiple chronic compression fractures as well in thoracic and lumbar spine.
No trauma before the acute onset of pain. Makes it more likely osteoporotic compression fractures due to chronic steroid use. Advised to see PCP and get a bone scan for osteoporosis evaluation.
No sciatica today.
Continue with the pain regimen for control. Await arrival of TSLO brace.
Will consider nasal calcitonin for short-term use if continued bone pain
Continue with the PT/OT
#Advanced COPD
#Chronic hypoxic respiratory failure
-Normally on 3 to 4 L at baseline -- she is at baseline
-Chest x-ray with no acute process, similar to prior
-Cardiac BNP of 846
- DuoNebs every 6 hours
- Continue budesonide
- Pulmonary signed off
- Continue chronic Prednisone 10 mg daily, indefinitely
- Incentive Spirometer and Acapella
- Patient has had poor outpatient follow-up, pulmonary mentioned that they had discussed Ohtuvaryre but she has not yet started this, and could consider Daliresp versus Azithromycin MWF as she has had many readmissions
#Chronic Urinary Incontinence (starting about 2 months prior to arrival)
- Will need urology referral on discharge for incontinence eval
# Leukocytosis secondary to steroids vs. both UTI and steroids
-Started Cefdinir on 08/23/25
-5 days course of Abx completed
Obstructive sleep apnea
Chronic HFmrEF
- Continue Lasix
CKD 3A
- Renal function at baseline
- Patient's daughter Alma Delia requested outpatient nephrology follow-up in [place], [place] area
Chronic anemia
- Monitor Hgb
Anxiety/depression
- Continue bupropion, sertraline
Spinal stenosis
- Continue gabapentin, oxycodone
Morbid obesity
Bilateral kidney stone
History of gastric ulcers
History of shingles
Full code
DVT prophylaxis�heparin
Regular diet
Medically stable for DC to rehab; [facility] santos delivered 08/29
Anticipated Discharge: Within 24 hours
Subjective/Interval History
-
Date of Service: August 30, 2025
Brace in room, now willing to work with PT/OT
Objective Data
-
Labs:
Laboratory Results
08/30/25
06:57
WBC 12.1 H
Hgb 8.3 L
Hct 27.8 L
Plt Count 305
Sodium 139
Potassium 4.0
Chloride 105
Carbon Dioxide 32 H
BUN 39 H
Creatinine 1.4 H
Glucose 122 H
Calcium 9.1
Vital Signs:
Vital Signs
Temp Pulse Resp BP Pulse Ox
97.5 F 85 16 146/70 96
08/30/25 11:16 08/30/25 11:16 08/30/25 11:16 08/30/25 11:16 08/30/25 11:16
I&O
08/29/25 08/30/25 08/31/25
06:59 06:59 06:59
Intake Total 0 / 0 1320 / 1320
Balance 1760 / 0 1320 / 1320
Physical Exam
-
General: No Apparent Distress
HEENT: Normocephalic and Atraumatic
Respiratory: Negative Wheezes
Cardiac: Regular Rhythm and S1/S2
GI: Soft
Musculoskeletal: No Edema
Neuro: AO x 3
Psych: Calm
Data Reviewed
-
Total Time Spent with Patient (in minutes): 41
Labs: Labs Reviewed by me
--- NOTE | 2025-08-30 15:49 | CM ---
Addendum entered by Alley Veras 08/30/25 16:19:
Patient given IMM and signed form placed on chart. Patient understands she has right to appeal and will decide after she talks to the physician in am if she is going to do so.
Original Note:
CM called to [facility] and left message for admissions to see if patient would be able to come tomorrow. Per admissions tomorrow transfer is acceptable. CM will update patient and provide IMM. CM will continue to follow for discharge planning needs.
Knee Arthroscopy
Laminectomy
Cholecystectomy
Hysterectomy
Left Carotid Endarterectomy
Right Proximal Superficial Femoral Artery to Popliteal Bypass
Right Partial First Ray Amputation
Permanent Pacemaker
[2025-08-31 03:36] VITALS: BP 143/80
[2025-08-31] MEDS: TYLENOL 1000 MG PO ×2 (05:24→16:35)
[2025-08-31 05:45] VITALS: BMI 29.8
[2025-08-31 07:02] LABS: Hematocrit 26.3 % (37.0-47.0); Hemoglobin 7.9 g/dL (12.0-16.0); Mean Corp Hgb Conc. 30.0 g/dL (33.0-37.0); Mean Corpuscular Volume 90.4 fL (81.0-99.0); Platelet Count 301 10^3/uL (130-400); Red Cell Dist. Width 14.4 % (11.5-14.5)
[2025-08-31 07:31] LABS: Blood Urea Nitrogen 41 mg/dl (7-17); Calcium 9.0 mg/dl (8.4-10.2); Carbon Dioxide 31 mmol/L (22-30); Chloride 104 mmol/L (98-107); Estimated Creatinine Clearance 44 ml/min; Glucose 90 mg/dl (70-99); Potassium 4.2 mmol/L (3.5-5.1); Sodium 137 mmol/L (135-145); eGFR 42.88
[2025-08-31 07:35] VITALS: BP 155/68
[2025-08-31] MEDS: PULMICORT 0.25 MG INH (07:48)
[2025-08-31] MEDS: OSCAL 500 + D 1000 MG PO (07:55)
[2025-08-31] MEDS: COLACE 100 MG PO (07:55)
[2025-08-31] MEDS: DELTASONE 10 MG PO (07:55)
[2025-08-31] MEDS: WELLBUTRIN XL (24 hour extended release) 150 MG PO (07:55)
[2025-08-31] MEDS: CLARITIN 10 MG PO (07:55)
[2025-08-31] MEDS: NEURONTIN 300 MG PO (07:55)
[2025-08-31] MEDS: ZOLOFT 50 MG PO (07:55)
[2025-08-31] MEDS: CARDIZEM CD 120 MG PO (07:56)
[2025-08-31] MEDS: LASIX 20 MG PO (07:56)
[2025-08-31] MEDS: LOW STRENGTH ASPIRIN 81 MG PO (07:57)
[2025-08-31] MEDS: FOLVITE 1 MG PO (07:57)
[2025-08-31] MEDS: HEPARIN 5000 UNITS SC (07:57)
[2025-08-31] MEDS: MIRALAX 17 GRAMS PO (08:00)
[2025-08-31] MEDS: DICLOFENAC 1% TOPICAL GEL 100 GRAM TOPICAL (08:06)
[2025-08-31] MEDS: ROXICODONE 5 MG PO ×2 (10:06→18:25)
[2025-08-31 11:39] VITALS: BP 141/63
--- NOTE | 2025-08-31 12:01 | CM ---
CM reviewed chart, patient seen bedside.
For d/c today to [facility], confirmed with liaison bed available.
Patients daughter or grandson will transport and provide O2 for patient.
CM will continue to follow.
Plan; [facility], family transport
[facility]
Report: [phone]
[2025-08-31] MEDS: TYLENOL PO (12:48)
[2025-08-31] MEDS: DICLOFENAC 1% TOPICAL GEL 1 GRAM TOPICAL (13:00)
--- NOTE | 2025-08-31 13:52 | W.DCSUMMARY ---
Discharge Summary
Discharge Data
Date of Admission: 08/19/25
Date of Discharge: 08/31/25
-
Pending Results: No
Hospital Course
Primary diagnosis:
Acute on chronic low back pain secondary to acute on chronic compression fraction of thoracic and lumbar vertebral bodies
Secondary diagnosis:
Advanced chronic obstructive pulmonary disease
Chronic hypoxic respite insufficiency on 3 to 4 L of home O2
Chronic heart failure with midrange EF
Chronic kidney disease stage IIIa
Chronic anemia
Anxiety/depression
Hospital course:
Patient presented with acute low back pain across her lower back and radiating to her left leg. MRI imaging of the lumbar spine shows multilevel chronic compression fractures. There was also acute superimposed on chronic compression deformities at
T12, L1, and L4. There was minor acute inferior endplate compression fracture of L5. There was multilevel DJD as well.
Patient has COPD and has had steroids use in the past and now currently on chronic maintenance dose of 10 mg of prednisone. Suspect osteoporotic related compression fractures. No evidence of COPD flare during the stay here.
She was put on a pain regimen , a TSLO brace was obtained and was seen by PT . Her pain improved. 10 SNF and was discharged to SNF.
She was advised to follow-up with the PCP as an outpatient and get a bone scan which she never had and go on osteoporosis treatments.
Today she denied any shortness of breath. No chest pain or palpitations. She is constipated. She was afebrile. Blood pressure 141/63. Chest was clear without any wheezes or crackles. Stable respiratory status on 3 L of oxygen.
She was deemed stable for discharge to rehab today.
Portions of this chart may have been created with voice recognition software. Occasional wrong word or 'sound alike' substitutions may have occurred due to the inherent limitations of voice recognition software.
Consultants on board:
Pulmonary -Wendy Wiseman
Discharge Plan
-
Patient Disposition: Long-Term/SNF
Discharge Diagnosis/Procedures: Acute on chronic lower back pain
Secondary to acute on chronic compression fractures of thoracic and lumbar vertebral bodies.
Diet: 2 Gram Sodium and Restrict fluids to 64 oz
Activity: As tolerated
Driving Restrictions: Not until seen by your Dr
Bathing Restrictions: None
Other Services: PT and OT
Specialty Instructions: Weigh Daily- Call MD for wt gain/loss 3 lbs overnight/5 lbs in 1 week
Referrals:
Elvi Camara CRNP [Specified Professional Personl, Cardiology] - 08/30/25 8:40 am
Ant Diaz DO [Family Provider, Family Practice] - in one to two weeks
Referral Note: Follow with PCP after rehab stay and obtain a bone scan through your PCP
Prescriptions:
New
prednisone 10 mg Tablet
10 mg PO DAILY Qty: 1 0RF
diltiazem HCl 120 mg Capsule,Extended Release 24hr
120 mg PO DAILY Qty: 1 0RF
acetaminophen [Tylenol Extra Strength] 500 mg Tablet
1,000 mg PO Q6H PRN (Reason: Pain) Qty: 1 0RF
oxycodone 5 mg Tablet
5 mg PO Q4HPRN PRN (Reason: severe pain) Qty: 20 0RF
docusate sodium 100 mg Capsule
100 mg PO BID Qty: 1 0RF
polyethylene glycol 3350 17 gram Powder In Packet
17 g PO DAILY Qty: 1 0RF
Continued
melatonin 5 mg tablet
10 mg PO HSPRN PRN (Reason: sleep)
loratadine [Claritin] 10 mg Tablet
10 mg PO DAILY
guaifenesin 100 mg/5 mL Liquid
200 mg PO Q6HPRN PRN (Reason: cough)
albuterol sulfate [Ventolin HFA] 90 mcg/actuation HFA aerosol inhaler
2 inh inhalation R Q4HPRN PRN (Reason: shortness of breath or wheezing) Qty: 0 0RF
aspirin 81 mg Tablet,Chewable
81 mg PO DAILY Qty: 30 0RF
folic acid 1 mg Tablet
1 mg PO DAILY Qty: 30 0RF
furosemide 20 mg Tablet
20 mg PO DAILY Qty: 30 0RF
sertraline 50 mg Tablet
50 mg PO DAILY 30 Days Qty: 30 0RF
bupropion HCl 150 mg Tablet Extended Release 24 Hr
150 mg PO DAILY Qty: 0 0RF
calcium carbonate-vitamin D3 [Oyster Shell Calcium-Vit D3] 500 mg-5 mcg (200 unit) Tablet
2 tab PO DAILY 30 Days Qty: 60 0RF
gabapentin 300 mg Capsule
300 mg PO BID
ipratropium-albuterol 0.5 mg-3 mg(2.5 mg base)/3 mL solution for nebulization
3 ml inhalation R Q4HPRN PRN (Reason: shortness of breath or wheezing)
Changed
budesonide 0.25 mg/2 mL suspension for nebulization
0.25 mg inhalation BID Qty: 0 0RF
Discharge Orders:
Discharge Patient (As Directed); Ordered 08/31/25
Ordered By: Stephen Arauz
Discharge Date and Time
Print Language: OCCITAN
[2025-08-31 15:35] VITALS: BP 144/67
[2025-08-31] MEDS: DICLOFENAC 1% TOPICAL GEL TOPICAL (16:38)
== END 2025-08-31 19:01 | DRG 543 ==
LOC: 4 WEST ACU 20:00
PROVIDERS: Hospitalist; Internal Medicine; ADMITTING PHYSICIAN Hospitalist; ATTENDING PHYSICIAN Internal Medicine; CONSULT PHYSICIAN Internal Medicine; EMERGENCY PHYSICIAN Student in an Organized Health Care Education/Training Program; FAMILY PHYSICIAN Family Medicine; OTHER PHYSICIAN Internal Medicine
DX: M48.54XA Collapsed vertebra, not elsewhere classified, thoracic region, initial encounter for fracture (principal); I13.0 Hypertensive heart and chronic kidney disease with heart failure and stage 1 through stage 4 chronic kidney disease, or unspecified chronic kidney disease; I50.42 Chronic combined systolic (congestive) and diastolic (congestive) heart failure; J96.11 Chronic respiratory failure with hypoxia; M48.061 Spinal stenosis, lumbar region without neurogenic claudication; N18.31 Chronic kidney disease, stage 3a; D64.9 Anemia, unspecified; F32.A Depression, unspecified; F41.9 Anxiety disorder, unspecified; M48.56XA Collapsed vertebra, not elsewhere classified, lumbar region, initial encounter for fracture; M47.26 Other spondylosis with radiculopathy, lumbar region; G47.33 Obstructive sleep apnea (adult) (pediatric); E66.01 Morbid (severe) obesity due to excess calories; Z86.19 Personal history of other infectious and parasitic diseases; Z68.29 Body mass index [BMI] 29.0-29.9, adult; Z87.891 Personal history of nicotine dependence; Z88.0 Allergy status to penicillin; Z79.82 Long term (current) use of aspirin; Z79.899 Other long term (current) drug therapy; T38.0X5A Adverse effect of glucocorticoids and synthetic analogues, initial encounter; Z79.52 Long term (current) use of systemic steroids; Z91.199 Patient's noncompliance with other medical treatment and regimen due to unspecified reason; Z99.81 Dependence on supplemental oxygen; J44.9 Chronic obstructive pulmonary disease, unspecified; I34.0 Nonrheumatic mitral (valve) insufficiency; K59.00 Constipation, unspecified; Z87.11 Personal history of peptic ulcer disease; Z87.442 Personal history of urinary calculi; Z90.49 Acquired absence of other specified parts of digestive tract; Z11.52 Encounter for screening for COVID-19
CPT/HCPCS: 71045; 72148; 76770; 80048; 80053; 81003; 81015; 83735; 83880; 84132; 84484; 85025; 85027; 85610; 85730; 87086; 87088; 87186; 87502; 87811; 93005; 94640; 96374; 97116; 97163; 97167; 97530; 97535; 99291